=== PATIENT | female | born 1950 | race Caucasian/White ===

== ENCOUNTER → 2017-12-09 08:43 | Outpatient (CLI) | payer BC, SELFPAY ==
[2017-12-09 09:38] LABS: Basophils % 0.3 % (0.1-2.0); Eosinophils # 0.1 K/mm3 (0.0-0.4); Eosinophils % 2.5 % (0.1-12.0); Hematocrit 44.1 % (37.0-47.0); Lymphocytes # 1.5 K/mm3 (0.7-4.5); Mean Corpuscular Hemoglobin 30.8 pg (27.0-31.2); Mean Corpuscular Volume 90.5 fl (81-99); Mean Platelet Volume 8.1 fl (7.4-10.4); Monocytes # 0.3 K/mm3 (0.1-1.0); Monocytes % 6.2 % (1.7-9.3); Platelet Count 155 K/mm3 (142-424); Red Blood Count 4.87 M/mm3 (4.20-5.40); Red Cell Distribution Width 12.7 % (11.5-17.5); White Blood Count 4.9 K/mm3 (4.8-10.8)
[2017-12-09 10:23] LABS: Alanine Aminotransferase 66 U/L (12-78); Albumin Level 4.4 gm/dL (3.4-5.0); Albumin/Globulin Ratio 1.4 (1.1-1.8); Alkaline Phosphatase 70 U/L (46-116); Anion Gap 13.5 mEq/L (5-15); Aspartate Amino Transferase 43 U/L (15-37); Bilirubin,Total 0.5 mg/dL (0.2-1.0); Blood Urea Nitrogen 11 mg/dL (7-18); Calcium 10.1 mg/dL (8.5-10.1); Carbon Dioxide 30 mmol/L (21.0-32.0); Chloride 106 mmol/L (98-107); Chol/HDL Ratio 4.6 (1-3.5); Cholesterol 212 mg/dL (140-200); Creatinine,Serum 0.84 mg/dL (0.55-1.02); Estimated Glomerular Filt Rate 67 ml/min (>60); GFR (African American) 81 ML/MIN (>60); Globulin 3.2 gm/dl (1.3-3.2); Glucose 175 mg/dL (74-106); HDL Cholesterol 46 mg/dL (29-89); LDL Cholesterol 122 mg/dL (0-130); Potassium 4.5 mmoL/L (3.5-5.1); Sodium 145 mmol/L (136-145); Thyroid Stimulating Hormone 1.91 uIU/ml (0.358-3.740); Total Protein,Serum 7.6 gm/dL (6.4-8.2); Triglycerides 221 mg/dL (30-200); VLDL Cholesterol 44 mg/dL (0-40)
== END ==
PROVIDERS: Visit Provider Internal Medicine Adolescent Medicine
DX: E11.9 Type 2 diabetes mellitus without complications (principal); E78.5 Hyperlipidemia, unspecified; I10 Essential (primary) hypertension
CPT/HCPCS: 36415; 80053; 80061; 82652; 83036; 84443; 85025

== ENCOUNTER 2018-01-13 09:30 | Outpatient (RCR) | payer BC, SELFPAY ==
--- NOTE | 2018-01-05 11:40 | HMH.PTOPEV ---
PT Outpatient Evaluation Rehab OP Evaluation Start: 01/05/18 11:28 Freq: Status: Active Protocol: Document 01/05/18 11:28 JUNE (Rec: 01/05/18 11:40 JUNE [id number]) Electronically Signed By Tien Olmstead, PT 01/05/18 11:28 Outpatient Therapy Subjective History Subjective History Pt reports balance deficits with h/o falling over the last 6 months. Pt reports balance issue are especially problematic upon standing, on uneven terrain, and up/down stairs. Pt reports decreased sensation in B feet d/t neuropathy. Chief Complaint Paresthesia Weakness Other Decreased Coordination Symptom Type Numbness Tingling Symptoms Relieved By Nothing Symptoms Aggravated By Bending/Stooping Physical Activity Walking Prior Functional Limitations Housework Recreation Activity Walking Stairs Balance Current Functional Limitations Housework Recreation Activity Walking Stairs Balance Symptom Description Intermittent Level of pain today (0-10) 0 Pain scale - at its best (0-10) 0 Pain scale - at its worst (0-10) 0 Hip/Knee Eval MMT bilateral Hip Flexion Strength Grade 4- Good- Hip Abduction Strength Grade 4- Good- Hip Adduction Strength Grade 4- Good- Hip Extension Strength Grade 4- Good- Hip External Rotation Strength Grade 5 Normal Hip Internal Rotation Strength Grade 5 Normal Knee Extension Strength Grade 5 Normal Knee Flexion Strength Grade 5 Normal Ankle/Foot Eval MMT Ankle Dorsiflexion Strength Grade 5 Normal Ankle Plantarflexion Strength Grade 5 Normal Neuro tests decrease sensation to monofilament Yes: B LE Balance Eval Chief Complaint vertigo No Did you feel dizzy, unsteady or faint? No Hx of Falls Hx Falls Yes Number in last 6 months 2 Gait/Posture Asssessment General Gait Observation Narrow Based Gait Assistive Devices None / NA Level of Transfer Assist Independent Hip Observation in Gait Swing No Deviation Hip Observation in Gait Stance No Deviation
== END 2018-01-13 09:31 | disposition home or self-care (01) ==
LOC: PT 09:30
PROVIDERS: Family Provider Internal Medicine Adolescent Medicine; Visit Provider Internal Medicine Adolescent Medicine
DX: R26.89 Other abnormalities of gait and mobility (principal); M62.81 Muscle weakness (generalized)
CPT/HCPCS: 97110; 97112; 97163

== ENCOUNTER 2018-01-31 13:50 | Outpatient (RCR) | payer BC, SELFPAY | END 2018-01-31 13:51 | disposition home or self-care (01) | LOC: PT 13:50 | PROVIDERS: Family Provider Internal Medicine Adolescent Medicine; Visit Provider Psychiatry & Neurology Neurology | DX: S80.02XA Contusion of left knee, initial encounter (principal) ==

== ENCOUNTER → 2018-03-21 10:08 | Outpatient (CLI) | payer BC, SELFPAY ==
[2018-03-21 10:32] LABS: Basophils % 0.5 % (0.1-2.0); Eosinophils # 0.2 K/mm3 (0.0-0.4); Eosinophils % 3.9 % (0.1-12.0); Hematocrit 46.4 % (37.0-47.0); Hemoglobin 15.4 g/dL (12.2-16.2); Lymphocytes # 1.5 K/mm3 (0.7-4.5); Lymphocytes % 32.2 K/mm3 (10-50); Mean Corpuscular HGB Conc 33.2 g/dL (31.8-35.4); Mean Corpuscular Volume 90.4 fl (81-99); Mean Platelet Volume 7.3 fl (7.4-10.4); Monocytes # 0.3 K/mm3 (0.1-1.0); Neutrophils # 2.6 K/mm3 (1.8-7.8); Neutrophils % 57.5 % (37.0-80.0); Platelet Count 202 K/mm3 (142-424); Red Blood Count 5.13 M/mm3 (4.20-5.40); Red Cell Distribution Width 12.8 % (11.5-17.5); White Blood Count 4.6 K/mm3 (4.8-10.8)
[2018-03-21 11:23] LABS: Hemoglobin A1C 6.8 % (0.0-7.0)
[2018-03-21 11:37] LABS: Alanine Aminotransferase 49 U/L (12-78); Albumin Level 3.7 gm/dL (3.4-5.0); Albumin/Globulin Ratio 1.2 (1.1-1.8); Alkaline Phosphatase 65 U/L (46-116); Anion Gap 12.1 mEq/L (5-15); Aspartate Amino Transferase 24 U/L (15-37); Bilirubin,Total 0.3 mg/dL (0.2-1.0); Blood Urea Nitrogen 9 mg/dL (7-18); Calcium 9.3 mg/dL (8.5-10.1); Carbon Dioxide 29 mmol/L (21.0-32.0); Chloride 109 mmol/L (98-107); Chol/HDL Ratio 4.7 (1-3.5); Cholesterol 210 mg/dL (140-200); Creatinine,Serum 0.86 mg/dL (0.55-1.02); Estimated Glomerular Filt Rate 65 ml/min (>60); Free Thyroxine Index 2.7 ug/dL (5.93-13.13); GFR (African American) 79 ML/MIN (>60); Glucose 153 mg/dL (74-106); HDL Cholesterol 45 mg/dL (29-89); LDL Cholesterol 129 mg/dL (0-130); Potassium 5.1 mmoL/L (3.5-5.1); Sodium 145 mmol/L (136-145); T4 (Thyroxine) 8.4 ug/dl (4.7-13.3); Thyroid Stimulating Hormone 2.18 uIU/ml (0.358-3.740); Total Protein,Serum 6.7 gm/dL (6.4-8.2); Triglycerides 179 mg/dL (30-200); Triiodothryronine (T3) Uptake 32 % (31-39); VLDL Cholesterol 36 mg/dL (0-40)
== END ==
PROVIDERS: Visit Provider Internal Medicine Adolescent Medicine
DX: E78.5 Hyperlipidemia, unspecified (principal); E11.9 Type 2 diabetes mellitus without complications; E55.9 Vitamin D deficiency, unspecified; M81.0 Age-related osteoporosis without current pathological fracture
CPT/HCPCS: 36415; 80053; 80061; 82652; 83036; 84436; 84443; 84479; 85025

== ENCOUNTER → 2018-04-20 10:22 | Outpatient (CLI) | payer BC, SELFPAY ==
--- NOTE | 2018-04-20 10:25 | MR_ITS ---
MR lumbar spine wo con, MR 3-d myelogram/MRCP HISTORY: Low back pain with right-sided hip and leg pain Has fallen 3 times in 4 months and has had LBP since last fall in JANUARY. RT sided LBP with Rt hip pain. ITS.REASON: LUMBAR NEURALGIA ORDERING PHYSICIAN: Graham Jose MD PATIENT AGE: 67 years Comparison: 04/11/2017 TECHNIQUE: Standard multiplanar multiecho sequences are performed without contrast. 3-D MIP and myelographic images are also rendered and reviewed FINDINGS: There is normal alignment. There is degenerative disc disease at T11-T12 . Spinal cord ends at the L1-L2 level. T12-L1 and L1-L2 have an unremarkable appearance. L2-L3: There is minimal concentric bulging disc. L3-L4: Mild concentric bulging disc along with facet and ligamentum flavum hypertrophic change with mild bilateral lateral recess and foraminal narrowing. The disc does abut the anterior aspect of both L4 nerve roots in the lateral recess. L4-5: Mild concentric bulging disc, facet and ligamentum flavum hypertrophy with mild bilateral lateral recess and foraminal narrowing L5-S1: Type II endplate changes right with minimal bulging disc. Minimal facet hypertrophic change. Incidental note is made of right renal cyst as well as. Neural cyst on the right at S1 and Alycia cyst at the S2 level IMPRESSION: Mild multilevel lumbar spondylosis with mild bulging disc along facet ligamentum flavum hypertrophic change and mild lateral recess and foraminal narrowing similar to the previous exam. Please see above for detailed description at each level. No disc herniation or canal stenosis with overall no significant change
== END ==
PROVIDERS: Family Provider Internal Medicine Adolescent Medicine; PCP Internal Medicine Adolescent Medicine; Visit Provider Internal Medicine Adolescent Medicine
DX: M54.16 Radiculopathy, lumbar region (principal)
CPT/HCPCS: 72148; 76376

== ENCOUNTER 2018-05-09 10:30 | Outpatient (RCR) | payer BC, SELFPAY ==
--- NOTE | 2018-04-03 13:26 | HMH.PTOPEV ---
PT Outpatient Evaluation Rehab PT Outpatient Evaluation Start: 04/03/18 11:14 Freq: Status: Active Protocol: Document 04/03/18 11:14 JUNE (Rec: 04/03/18 13:26 JUNE [id number]) Electronically Signed By Tien Olmstead, PT 04/03/18 11:14 Outpatient Therapy Subjective History Subjective History Pt reports falling ~3-4 weeks ago, impact to L knee and R elbow, however reports 'feels like I nisha my whole spine'. Pt reports LBP R>L sided since the fall, as well as mid - and upper back stiffness/ pain. Chief Complaint Pain Spasms Stiff Symptom Type Ache Throb Sharp Dull Symptoms Relieved By Rest/Positioning Heat Symptoms Aggravated By Standing Bending/Stooping Physical Activity Twisting Walking Lifting Prior Functional Limitations None Current Functional Limitations Lifting Housework Sleeping Bending/Stooping Symptom Description Constant but Variable Level of pain today (0-10) 3 Pain scale - at its best (0-10) 2 Pain scale - at its worst (0-10) 9 Lumbopelvic Eval Posture Thoracic Spine Posture Standing Position Neutral Lumbar Spine Posture Standing Position Flattened Assistive device Assistive Devices None / NA Gait Observation General Gait Pattern Observation Antalgic Gait Palapation tenderness bilateral thoracic spinal tenderness Yes: 2/4 lumbar spinal tenderness Yes: 2/4 paraspinal tenderness Yes: 3/4 Lumbar/Sacral Palpation Findings Tenderness Trigger Point Muscle Guarding Lumbar/Sacral Palpation Overall Comment 3/4 Accessory Movement T-spine Vertebrae Accessory Movements Central P/A [place] that Elicit Symptoms T10 bilateral T11 bilateral T12 bilateral L-spine Vertebrae Accessory Movements Central P/A [place] that Elicit Symptoms L2 bilateral L3 bilateral L4 bilateral L5 bilateral S1
--- NOTE | 2018-05-04 11:26 | HMH.RHREAS ---
Rehab Reassessment Rehab OP Re-assessment Start: 05/04/18 09:55 Freq: Status: Active Protocol: Document 05/04/18 11:18 JUNE (Rec: 05/04/18 11:23 [email or web address] [id number]) Electronically Signed By Tien Olmstead, PT 05/04/18 11:18 Rehab Re-assessment Subjective Subjective Pt reports improved LBP since massage last week, and following an 'arching of the back' episode yesterday which improved s/s. Pt reports 4-5/ 10 LBP on vAS Objective Objective Notes AROM L-SPINE FLX 0-40, EXT 0- 20, R SB 0-15, L SB 0-15 MMT: B HIP FLX 4/5, B KNEE FLX AND EXT 4+/5, B DF 4+/5 TTP: R LUMBAR PARA. 2/4, R PIRI MM 1-2 Assessment Progress Assessment Slower Than Expected Assessment Notes PT W/IMPROVED STRENGTH, TTP, AND ROM Patient goals met STG'S 01/02 LTG'S 10/05 Goals Not Met STG'S 10/05, LTG'S 01/02 Plan Plan Pt ton cont. w/skilled PT to make further improvements w/ ROM, strength, and TTP to allow for optimal function Frequency of Therapy 1-2x/wk Duration of therapy 3-4 wks Time and Billing Re-Eval Time 15 Re-Eval Billing Units 1 PHYSICIAN CERTIFICATION: I certify the specified therapy services for Candace Bryant are required, authorized, and reviewed every 30 days.
== END 2018-05-09 10:31 | disposition home or self-care (01) ==
LOC: PT 10:30
PROVIDERS: Family Provider Internal Medicine Adolescent Medicine; Visit Provider Internal Medicine Adolescent Medicine
DX: M15.0 Primary generalized (osteo)arthritis (principal); R26.89 Other abnormalities of gait and mobility; M62.81 Muscle weakness (generalized); M54.12 Radiculopathy, cervical region; M54.16 Radiculopathy, lumbar region
CPT/HCPCS: 97010; 97014; 97035; 97110; 97140; 97163; 97164; G0283

== ENCOUNTER → 2018-11-16 09:14 | Outpatient (CLI) | payer BC, SELFPAY ==
[2018-11-16 10:25] LABS: Hemoglobin A1C 6.7 % (0.0-7.0)
[2018-11-16 10:42] LABS: Alanine Aminotransferase 43 U/L (12-78); Albumin Level 3.8 gm/dL (3.4-5.0); Albumin/Globulin Ratio 1.3 (1.1-1.8); Alkaline Phosphatase 57 U/L (46-116); Anion Gap 13.5 mEq/L (5-15); Aspartate Amino Transferase 27 U/L (15-37); Bilirubin,Total 0.3 mg/dL (0.2-1.0); Blood Urea Nitrogen 13 mg/dL (7-18); Calcium 9.9 mg/dL (8.5-10.1); Carbon Dioxide 30 mmol/L (21.0-32.0); Chloride 105 mmol/L (98-107); Chol/HDL Ratio 4.8 (1-3.5); Cholesterol 186 mg/dL (140-200); Creatinine,Serum 0.88 mg/dL (0.55-1.02); Estimated Glomerular Filt Rate 64 ml/min (>60); GFR (African American) 77 ML/MIN (>60); Glucose 134 mg/dL (74-106); HDL Cholesterol 39 mg/dL (29-89); LDL Cholesterol 93 mg/dL (0-130); Potassium 4.5 mmoL/L (3.5-5.1); Sodium 144 mmol/L (136-145); Total Protein,Serum 6.8 gm/dL (6.4-8.2); Triglycerides 272 mg/dL (30-200); VLDL Cholesterol 54 mg/dL (0-40)
== END ==
PROVIDERS: Visit Provider Internal Medicine Adolescent Medicine
DX: E78.5 Hyperlipidemia, unspecified (principal); I10 Essential (primary) hypertension; E11.9 Type 2 diabetes mellitus without complications; Z79.84 Long term (current) use of oral hypoglycemic drugs
CPT/HCPCS: 36415; 80053; 80061; 83036

== ENCOUNTER → 2018-12-01 13:02 | Outpatient (CLI) | payer BC, SELFPAY ==
--- NOTE | 2018-12-01 13:08 | US_ITS ---
US Arterial Ankle Brachial Ind HISTORY: Cold: Extremities. Skin color changes. Diabetes. Peripheral arterial vascular disease. No claudication reported. No rest pain TECHNIQUE: Segmental pressures obtained of both right and left leg. These are compared to brachial blood pressure to yield index at each level sampled including summary JESSICA. The data sheets from the procedure are available in PACS FINDINGS Rest study only performed today No prior studies available for comparison. Blood pressures reported are in millimeters mercury. RIGHT LEG JESSICA = Right JESSICA = 1.2. WNL: Right TBI = 0.6 slight diminished Brachial BP: Thigh BP: 160 with index 1.12 Calf BP: 210, with index 1.47 Ankle PT: BP 171 with index 1.2 Ankle DP : BP 176 with index 1.23 Digit =BP 92 with index 0.64 LEFT LEG JESSICA Left JESSICA equals 1.2. WNL ...Left TBI equal 0.6. Brachial BPD: 143 Thigh BP: BP 167 with index 1.17 Calf BP: BP 158 with index 1.1 Ankle PT:BP 168 with index 1.17 Ankle DP: BP 155 with index 1.08 Digit = BP 89 with index 0.62 Pulses and waveforms: Normal bilateral IMPRESSION:======== Normal pulses and waveforms bilaterally. Right JESSICA = 1.2 WNL Right TBI = 0.6 .... Left JESSICA equals 1.2. WNL Left TBI equal 0.6.
--- NOTE | 2018-12-01 14:08 | US_ITS ---
US soft tissue head and neck Ordering Physician: Graham Jose MD Patient Age: 68 years: Female HISTORY: ITS.REASON: TENDERNESS OF NECK Patient feels lump in neck towards right side TECHNIQUE: Ultrasound neck COMPARISON : CT cervical spine without contrast from 2016 FINDINGS Right submandibular gland: 3.6 cm x 2.2 cm x 2.45 cm. Homogeneous appearance. No focal mass. Left submandibular gland 2.65 cm x 1.6 cm x by 2.55 cm.. Heterogeneous gland. No mass evident Slightly more lobular left seventh of the gland. Left parotid of 4.5 cm length x 3.6 cm transverse x 2 cm AP. Heterogeneous gland. No mass nor lesion nor inflammation Right carotid 4.27 length 3.6 cm transverse 2 cm AP. Heterogeneous gland no mass lesion. Particular attention directed towards the area of pain and palpable region at the right neck. No abnormalities are seen in this region. If symptoms persist or progressSuggest CT neck with contrast to further evaluate. The Prior 2017 CT C-spine demonstrates moderate size lymph nodes nodes at the right neck which is slightly more on right than left. Most notable just Posterior to the angle of mandible. IMPRESSION: . Scanning in at the palpable area at the right neck reveals no abnormalities. The submandibular glands and parotid glands appear within normal limits. Slightly lobular contour left submandibular gland within normal limits
== END ==
PROVIDERS: PCP Internal Medicine Adolescent Medicine; Visit Provider Internal Medicine Adolescent Medicine
DX: I73.9 Peripheral vascular disease, unspecified (principal); M54.2 Cervicalgia
CPT/HCPCS: 76536; 93922

== ENCOUNTER → 2019-01-24 15:51 | Outpatient (CLI) | payer BC, SELFPAY ==
[2019-01-24 16:29] LABS: Basophils % 0.2 % (0.1-2.0); Eosinophils # 0.1 K/mm3 (0.0-0.4); Eosinophils % 0.5 % (0.1-12.0); Hematocrit 47.1 % (37.0-47.0); Hemoglobin 15.9 g/dL (12.2-16.2); Lymphocytes # 1.6 K/mm3 (0.7-4.5); Lymphocytes % 15.4 % (10-50); Mean Corpuscular HGB Conc 33.7 g/dL (31.8-35.4); Mean Corpuscular Hemoglobin 30.3 pg (27.0-31.2); Mean Corpuscular Volume 89.7 fl (81-99); Mean Platelet Volume 7.3 fl (7.4-10.4); Monocytes # 0.5 K/mm3 (0.1-1.0); Monocytes % 5.1 % (1.7-9.3); Neutrophils # 8.2 K/mm3 (1.8-7.8); Neutrophils % 78.7 % (37.0-80.0); Platelet Count 247 K/mm3 (142-424); Red Blood Count 5.25 M/mm3 (4.20-5.40); Red Cell Distribution Width 12.7 % (11.5-17.5); White Blood Count 10.4 K/mm3 (4.8-10.8)
[2019-01-24 16:48] LABS: Uric Acid 7.3 mg/dL (2.6-7.2)
[2019-01-24 16:51] LABS: C-Reactive Protein < 0.2 mg/L (0.0-0.9)
[2019-01-24 17:36] LABS: Erythrocyte Sedimentation Rate 7 mm/hr (0-30)
[2019-01-26 07:34] LABS: RA Latex Turbid. <10.0 IU/mL (0.0-13.9)
[2019-01-26 18:43] LABS: Antinuclear Antibodies, IFA Negative (.)
== END ==
PROVIDERS: Visit Provider Orthopaedic Surgery
DX: M65.849 Other synovitis and tenosynovitis, unspecified hand (principal)
CPT/HCPCS: 36415; 84550; 85025; 85651; 86038; 86140; 86431

== ENCOUNTER → 2019-03-02 10:25 | Outpatient (CLI) | payer BC, SELFPAY | PROVIDERS: Visit Provider Surgery | DX: R53.83 Other fatigue (principal); R19.7 Diarrhea, unspecified | CPT/HCPCS: 87493 ==

== ENCOUNTER → 2019-04-27 11:59 | Outpatient (CLI) | payer BC, SELFPAY ==
[2019-04-27 12:23] LABS: Basophils % 0.2 % (0.1-2.0); Eosinophils # 0.4 K/mm3 (0.0-0.4); Eosinophils % 6.4 % (0.1-12.0); Hematocrit 43.3 % (37.0-47.0); Lymphocytes # 1.7 K/mm3 (0.7-4.5); Lymphocytes % 28.5 % (10-50); Mean Corpuscular HGB Conc 32.4 g/dL (31.8-35.4); Mean Corpuscular Hemoglobin 30.4 pg (27.0-31.2); Mean Corpuscular Volume 93.7 fl (81-99); Mean Platelet Volume 8.9 fl (7.4-10.4); Monocytes # 0.4 K/mm3 (0.1-1.0); Monocytes % 6.1 % (1.7-9.3); Neutrophils # 3.5 K/mm3 (1.8-7.8); Neutrophils % 58.9 % (37.0-80.0); Platelet Count 224 K/mm3 (142-424); Red Blood Count 4.62 M/mm3 (4.20-5.40); Red Cell Distribution Width 12.8 % (11.5-17.5); White Blood Count 5.9 K/mm3 (4.8-10.8)
[2019-04-27 14:04] LABS: Alanine Aminotransferase 33 U/L (12-78); Albumin Level 3.6 gm/dL (3.4-5.0); Albumin/Globulin Ratio 1.3 (1.1-1.8); Alkaline Phosphatase 57 U/L (46-116); Anion Gap 15.2 mEq/L (5-15); Aspartate Amino Transferase 24 U/L (15-37); Bilirubin,Total 0.4 mg/dL (0.2-1.0); Blood Urea Nitrogen 9 mg/dL (7-18); Calcium 9.6 mg/dL (8.5-10.1); Carbon Dioxide 28 mmol/L (21.0-32.0); Chloride 104 mmol/L (98-107); Estimated Glomerular Filt Rate 55 ml/min (>60); GFR (African American) 66 ML/MIN (>60); Globulin 2.8 gm/dl (1.3-3.2); Glucose 163 mg/dL (74-106); Potassium 4.2 mmoL/L (3.5-5.1); Sodium 143 mmol/L (136-145); Total Protein,Serum 6.4 gm/dL (6.4-8.2)
[2019-04-27 14:09] LABS: C-Reactive Protein < 0.2 mg/dL (0.0-0.9)
[2019-04-27 15:12] LABS: Erythrocyte Sedimentation Rate 17 mm/hr (0-30)
== END ==
PROVIDERS: Visit Provider Nurse Practitioner Family
DX: R14.0 Abdominal distension (gaseous) (principal)
CPT/HCPCS: 36415; 80053; 85025; 85651; 86140

== ENCOUNTER → 2019-05-03 09:16 | Outpatient (CLI) | payer BC, SELFPAY ==
--- NOTE | 2019-05-03 09:31 | CT_ITS ---
PROCEDURE: CT ABDOMEN PELVIS W CON CLINICAL HISTORY: ABD DISTENTION,DIARRHEA COMPARISON: ABDPELW CT ABD PELVIS W/ CONTRAST from 10/15/[address] abdomen pelvis w con from 03/04/2019 TECHNIQUE: 75 mL Optiray 350 IV with oral Readi-Cat Axial images obtained with sagittal and coronal reformats. All CT scans at the facility use one or more dose reduction, viz: automated exposure control, ma/kV adjustment per patient size (including targeted exams where dose is matched to indication, i.e. head), or iterative reconstruction technique. FINDINGS: There some scarring in the left lung base. Postsurgical changes at the GE junction with surgical clips. Mild thickening of the distal esophagus is noted. Previously noted fluid collection at the GE junction is no longer apparent. There is increased soft tissue density at the GE junction and may be related to the prior surgery. There is mild fatty liver infiltration. The there are post cholecystectomy changes. There is a rounded area of hypoattenuation in the left hepatic lobe measuring 17 mm not significantly changed. An additional area of hypoattenuation is present in the gallbladder fossa at 9 mm. These areas are unchanged. Percutaneous gastrostomy tube has been removed. The spleen, pancreas, and adrenal glands are unremarkable. No renal or ureteral calculi. No hydronephrosis. 2.3 cm right renal cyst is present. No evidence of appendicitis. No intestinal obstruction or free air. There is a mild amount of retained colonic feces. Fluid-filled small bowel loops are present in the pelvis with some mild submucosal enhancement. Possibly related to enteritis. The terminal ileum has an unremarkable appearance. The uterus is slightly canted toward the left. No acute bony anomalies. IMPRESSION: 1. No acute abdominal or pelvic findings 2. Postsurgical changes at the GE junction. Prior cholecystectomy. Resolved perigastric fluid collection 3. Stable hypodense liver lesions. 4. Constipation with possible enteritis Dictated by: Jad Uriostegui MD 05/04/2019 06:00 Electronically signed by Jad Uriostegui MD in [place] 05/04/2019 06:00
== END ==
PROVIDERS: PCP Internal Medicine Adolescent Medicine; Visit Provider Nurse Practitioner Family
DX: R14.0 Abdominal distension (gaseous) (principal)
CPT/HCPCS: 74177; Q9967

== ENCOUNTER → 2019-05-04 11:18 | Outpatient (CLI) | payer BC, SELFPAY ==
[2019-05-05 17:16] LABS: C difficile Toxins AB, EIA Negative (Negative)
[2019-05-05 18:07] LABS: Giardia lamblia Ag, EIA Negative (Negative)
[2019-05-08 10:31] LABS: Fats, Neutral Normal (.); Fats, Total Normal (.)
[2019-05-09 06:08] LABS: Calprotectin, Fecal <16 ug/g (0-120)
== END ==
PROVIDERS: Visit Provider Nurse Practitioner Family
DX: R14.0 Abdominal distension (gaseous) (principal)
CPT/HCPCS: 82705; 83993; 87045; 87177; 87205; 87324

== ENCOUNTER → 2019-05-10 09:21 | Outpatient (CLI) | payer BC, SELFPAY ==
[2019-05-10 09:37] LABS: Basophils % 0.4 % (0.1-2.0); Eosinophils # 0.3 K/mm3 (0.0-0.4); Eosinophils % 6.1 % (0.1-12.0); Hematocrit 45.4 % (37.0-47.0); Hemoglobin 15.1 g/dL (12.2-16.2); Lymphocytes # 1.6 K/mm3 (0.7-4.5); Lymphocytes % 27.3 % (10-50); Mean Corpuscular HGB Conc 33.2 g/dL (31.8-35.4); Mean Corpuscular Hemoglobin 30.4 pg (27.0-31.2); Mean Corpuscular Volume 91.5 fl (81-99); Mean Platelet Volume 7.1 fl (7.4-10.4); Monocytes # 0.4 K/mm3 (0.1-1.0); Monocytes % 6.3 % (1.7-9.3); Neutrophils # 3.4 K/mm3 (1.8-7.8); Neutrophils % 59.9 % (37.0-80.0); Platelet Count 212 K/mm3 (142-424); Red Blood Count 4.96 M/mm3 (4.20-5.40); Red Cell Distribution Width 12.8 % (11.5-17.5); White Blood Count 5.7 K/mm3 (4.8-10.8)
[2019-05-10 10:30] LABS: Hemoglobin A1C 5.9 % (0.0-7.0)
[2019-05-10 11:28] LABS: Chol/HDL Ratio 2.8 (1-3.5); Cholesterol 137 mg/dL (140-200); Free Thyroxine Index 3.1 ug/dL (5.93-13.13); HDL Cholesterol 49 mg/dL (29-89); LDL Cholesterol 64 mg/dL (0-130); T4 (Thyroxine) 9.8 ug/dl (4.7-13.3); Thyroid Stimulating Hormone 4.23 uIU/ml (0.358-3.740); Triglycerides 122 mg/dL (30-200); Triiodothryronine (T3) Uptake 32 % (31-39); VLDL Cholesterol 24 mg/dL (0-40)
[2019-05-11 10:11] LABS: Vitamin D 25 Hydroxy 52.8 ng/mL (30.0-100.0)
[2019-05-11 17:11] LABS: Vitamin B12 690 pg/mL (232-1245)
== END ==
PROVIDERS: Visit Provider Internal Medicine Adolescent Medicine
DX: E78.5 Hyperlipidemia, unspecified (principal); E11.9 Type 2 diabetes mellitus without complications; E06.9 Thyroiditis, unspecified; E55.9 Vitamin D deficiency, unspecified; Z79.84 Long term (current) use of oral hypoglycemic drugs
CPT/HCPCS: 36415; 80061; 82607; 82652; 83036; 84436; 84443; 84479; 85025

== ENCOUNTER → 2019-08-02 09:15 | Outpatient (CLI) | payer BC, SELFPAY ==
[2019-08-02 10:16] LABS: Basophils % 0.4 % (0.1-2.0); Eosinophils # 0.2 K/mm3 (0.0-0.4); Eosinophils % 4.2 % (0.1-12.0); Hematocrit 45.1 % (37.0-47.0); Hemoglobin 14.3 g/dL (12.2-16.2); Lymphocytes # 1.6 K/mm3 (0.7-4.5); Lymphocytes % 32.9 % (10-50); Mean Corpuscular HGB Conc 31.8 g/dL (31.8-35.4); Mean Corpuscular Hemoglobin 29.6 pg (27.0-31.2); Mean Corpuscular Volume 93.1 fl (81-99); Mean Platelet Volume 8.5 fl (7.4-10.4); Monocytes # 0.3 K/mm3 (0.1-1.0); Monocytes % 5.9 % (1.7-9.3); Neutrophils # 2.7 K/mm3 (1.8-7.8); Neutrophils % 56.5 % (37.0-80.0); Platelet Count 168 K/mm3 (142-424); Red Blood Count 4.84 M/mm3 (4.20-5.40); Red Cell Distribution Width 12.9 % (11.5-17.5); White Blood Count 4.8 K/mm3 (4.8-10.8)
[2019-08-02 11:20] LABS: Alanine Aminotransferase 28 U/L (12-78); Albumin Level 3.6 gm/dL (3.4-5.0); Albumin/Globulin Ratio 1.2 (1.1-1.8); Alkaline Phosphatase 55 U/L (46-116); Anion Gap 11.6 mEq/L (5-15); Aspartate Amino Transferase 22 U/L (15-37); Bilirubin,Total 0.4 mg/dL (0.2-1.0); Blood Urea Nitrogen 15 mg/dL (7-18); Calcium 8.9 mg/dL (8.5-10.1); Carbon Dioxide 29 mmol/L (21.0-32.0); Chloride 108 mmol/L (98-107); Chol/HDL Ratio 3.4 (1-3.5); Cholesterol 166 mg/dL (140-200); Creatinine,Serum 0.92 mg/dL (0.55-1.02); Estimated Glomerular Filt Rate 60 ml/min (>60); GFR (African American) 73 ML/MIN (>60); Glucose 184 mg/dL (74-106); HDL Cholesterol 49 mg/dL (29-89); LDL Cholesterol 88 mg/dL (0-130); Potassium 4.6 mmoL/L (3.5-5.1); Sodium 144 mmol/L (136-145); Thyroid Stimulating Hormone 2.05 uIU/ml (0.358-3.740); Total Protein,Serum 6.6 gm/dL (6.4-8.2); Triglycerides 146 mg/dL (30-200); VLDL Cholesterol 29 mg/dL (0-40)
[2019-08-02 13:56] LABS: Hemoglobin A1C 7.4 % (0.0-7.0)
[2019-08-03 10:48] LABS: Vitamin B12 1938 pg/mL (232-1245); Vitamin D 25 Hydroxy 48.9 ng/mL (30.0-100.0)
== END ==
PROVIDERS: Visit Provider Nurse Practitioner Family
DX: E11.9 Type 2 diabetes mellitus without complications (principal); E78.5 Hyperlipidemia, unspecified; E06.9 Thyroiditis, unspecified; E53.8 Deficiency of other specified B group vitamins; E55.9 Vitamin D deficiency, unspecified; I10 Essential (primary) hypertension; Z79.84 Long term (current) use of oral hypoglycemic drugs
CPT/HCPCS: 36415; 80053; 80061; 82607; 82652; 83036; 84443; 85025

== ENCOUNTER → 2019-09-03 12:45 | Outpatient (CLI) | payer BC, SELFPAY ==
[2019-09-03 15:10] LABS: Anion Gap 15.5 mEq/L (5-15); Blood Urea Nitrogen 19 mg/dL (7-18); Calcium 9.4 mg/dL (8.5-10.1); Carbon Dioxide 26 mmol/L (21.0-32.0); Chloride 103 mmol/L (98-107); Creatinine,Serum 0.96 mg/dL (0.55-1.02); Estimated Glomerular Filt Rate 57 ml/min (>60); GFR (African American) 69 ML/MIN (>60); Glucose 191 mg/dL (74-106); Potassium 4.5 mmoL/L (3.5-5.1); Sodium 140 mmol/L (136-145)
== END ==
PROVIDERS: Visit Provider Internal Medicine Adolescent Medicine
DX: E11.9 Type 2 diabetes mellitus without complications (principal); Z79.84 Long term (current) use of oral hypoglycemic drugs
CPT/HCPCS: 36415; 80048

== ENCOUNTER → 2019-10-24 09:25 | Outpatient (CLI) | payer BC, SELFPAY ==
[2019-10-24 11:26] LABS: Chloride 99 mmol/L (98-107)
[2019-10-24 11:27] LABS: Potassium 4.2 mmoL/L (3.5-5.1); Sodium 139 mmol/L (136-145)
[2019-10-24 11:29] LABS: Alanine Aminotransferase 42 U/L (12-78); Aspartate Amino Transferase 43 U/L (14-36); Blood Urea Nitrogen 12 mg/dl (7-17); Estimated Glomerular Filt Rate 62 ml/min (>60); GFR (African American) 75 ML/MIN (>60)
[2019-10-24 11:30] LABS: Albumin Level 4.1 g/dl (3.5-5.0); Albumin/Globulin Ratio 1.6 (1.1-1.8); Alkaline Phosphatase 54 U/L (38-126); Anion Gap 13.2 mEq/L (5-15); Bilirubin,Total 0.6 mg/dl (0.2-1.3); Calcium 9.7 mg/dl (8.4-10.2); Carbon Dioxide 31 mmol/L (22.0-30.0); Globulin 2.5 g/dL (1.3-3.2); Glucose 156 mg/dl (74-100); Total Protein,Serum 6.6 g/dl (6.3-8.2)
[2019-10-24 11:33] LABS: Hemoglobin A1C 8.3 % (4.0-6.0)
== END ==
PROVIDERS: Visit Provider Internal Medicine Adolescent Medicine
DX: E11.9 Type 2 diabetes mellitus without complications (principal); Z79.84 Long term (current) use of oral hypoglycemic drugs
CPT/HCPCS: 36415; 80053; 83036

== ENCOUNTER → 2020-02-25 12:52 | Outpatient (CLI) | payer MEDICARE, SELFPAY ==
[2020-02-25 13:35] LABS: Basophils % 0.3 % (0.1-2.0); Eosinophils # 0.2 K/mm3 (0.0-0.4); Eosinophils % 2.8 % (0.1-12.0); Hematocrit 47.4 % (37.0-47.0); Hemoglobin 16.5 g/dL (12.2-16.2); Lymphocytes # 1.7 K/mm3 (0.7-4.5); Lymphocytes % 30.6 % (10-50); Mean Corpuscular HGB Conc 34.8 g/dL (31.8-35.4); Mean Corpuscular Volume 92.2 fl (81-99); Mean Platelet Volume 7.4 fl (7.4-10.4); Monocytes # 0.3 K/mm3 (0.1-1.0); Monocytes % 5.4 % (1.7-9.3); Neutrophils # 3.5 K/mm3 (1.8-7.8); Neutrophils % 60.9 % (37.0-80.0); Platelet Count 222 K/mm3 (142-424); Red Blood Count 5.14 M/mm3 (4.20-5.40); Red Cell Distribution Width 12.9 % (11.5-17.5); White Blood Count 5.7 K/mm3 (4.8-10.8)
[2020-02-25 13:55] LABS: Hemoglobin A1C 7.1 % (4.0-6.0)
[2020-02-25 14:16] LABS: Chloride 103 mmol/L (98-107); Potassium 4.8 mmoL/L (3.5-5.1); Sodium 136 mmol/L (136-145)
[2020-02-25 14:19] LABS: Alanine Aminotransferase 36 U/L (12-78); Albumin Level 4.3 g/dl (3.5-5.0); Albumin/Globulin Ratio 1.7 (1.1-1.8); Alkaline Phosphatase 59 U/L (38-126); Anion Gap 13.8 mEq/L (5-15); Aspartate Amino Transferase 39 U/L (14-36); Bilirubin,Total 0.7 mg/dl (0.2-1.3); Blood Urea Nitrogen 20 mg/dl (7-17); Carbon Dioxide 24 mmol/L (22.0-30.0); Cholesterol 168 mg/dl (140-200); Estimated Glomerular Filt Rate 71 ml/min (>60); GFR (African American) 86 ML/MIN (>60); Globulin 2.5 g/dL (1.3-3.2); Total Protein,Serum 6.8 g/dl (6.3-8.2); Triglycerides 344 mg/dl (30-150); VLDL Cholesterol 69 mg/dL (0-40)
[2020-02-25 14:20] LABS: Calcium 9.4 mg/dl (8.4-10.2); Chol/HDL Ratio 3.5 (1-3.5); Glucose 232 mg/dl (74-100); HDL Cholesterol 48 mg/dl (40-60)
[2020-02-25 14:31] LABS: Direct LDL Cholesterol 90.14 mg/dL (100-129)
[2020-02-25 14:35] LABS: Triiodothryronine (T3) Uptake 30 % (23.5-40.5)
[2020-02-25 14:36] LABS: Free Thyroxine Index 2.7 ug/dL (5.93-13.13)
[2020-02-25 14:49] LABS: Thyroid Stimulating Hormone 1.31 uIU/mL (0.465-4.68)
[2020-02-25 15:25] LABS: 25-OH Vitamin D, Total 47.1 ng/mL (30-100)
[2020-02-27 04:47] LABS: Vitamin B12 1091 pg/mL (232-1245)
== END ==
PROVIDERS: Visit Provider Internal Medicine Adolescent Medicine
DX: E78.5 Hyperlipidemia, unspecified (principal); E55.9 Vitamin D deficiency, unspecified; E53.8 Deficiency of other specified B group vitamins; E06.9 Thyroiditis, unspecified; E11.9 Type 2 diabetes mellitus without complications; Z79.84 Long term (current) use of oral hypoglycemic drugs
CPT/HCPCS: 36415; 80053; 80061; 82306; 82607; 83036; 84436; 84443; 84479; 85025

== ENCOUNTER → 2020-05-13 13:03 | Outpatient (CLI) | payer MEDICARE, SELFPAY ==
[2020-05-13 16:49] LABS: Coronavirus 19 IgG Antibody Negative (Negative); Coronavirus 19 IgM Antibody Negative (Negative)
[2020-05-14 15:35] LABS: Covid-19 Nasal PCR Sendout Lex Not Detected
== END ==
PROVIDERS: PCP Internal Medicine Adolescent Medicine; Visit Provider Internal Medicine Adolescent Medicine
DX: Z20.828 Contact with and (suspected) exposure to other viral communicable diseases (principal); M79.10 Myalgia, unspecified site
CPT/HCPCS: 36415; 86328; U0004

== ENCOUNTER → 2020-06-07 09:05 | Outpatient (CLI) | payer MEDICARE, SELFPAY ==
[2020-06-07 10:11] LABS: Hemoglobin A1C 8.3 % (4.0-6.0)
[2020-06-07 10:46] LABS: Chloride 103 mmol/L (98-107); Potassium 4.5 mmoL/L (3.5-5.1); Sodium 140 mmol/L (136-145)
[2020-06-07 10:49] LABS: Alanine Aminotransferase 38 U/L (12-78); Albumin Level 4.3 g/dl (3.5-5.0); Albumin/Globulin Ratio 1.7 (1.1-1.8); Alkaline Phosphatase 65 U/L (38-126); Anion Gap 11.5 mEq/L (5-15); Aspartate Amino Transferase 40 U/L (14-36); Bilirubin,Total 0.6 mg/dl (0.2-1.3); Blood Urea Nitrogen 15 mg/dl (7-17); Calcium 9.6 mg/dl (8.4-10.2); Carbon Dioxide 30 mmol/L (22.0-30.0); Estimated Glomerular Filt Rate 62 ml/min (>60); GFR (African American) 74 ML/MIN (>60); Globulin 2.5 g/dL (1.3-3.2); Glucose 192 mg/dl (74-100); Total Protein,Serum 6.8 g/dl (6.3-8.2)
== END ==
PROVIDERS: Visit Provider Internal Medicine Adolescent Medicine
DX: E11.9 Type 2 diabetes mellitus without complications (principal); Z79.84 Long term (current) use of oral hypoglycemic drugs
CPT/HCPCS: 36415; 80053; 83036

== ENCOUNTER → 2020-08-29 10:34 | Outpatient (CLI) | payer MEDICARE, SELFPAY | PROVIDERS: PCP Internal Medicine Adolescent Medicine; Visit Provider Orthopaedic Surgery | DX: Z11.52 Encounter for screening for COVID-19 (principal) | CPT/HCPCS: U0003 ==

== ENCOUNTER → 2020-10-27 08:39 | Outpatient (CLI) | payer MEDICARE, SELFPAY ==
[2020-10-27 09:37] LABS: Hemoglobin A1C 7.3 % (4.0-6.0)
[2020-10-27 10:20] LABS: Chloride 105 mmol/L (98-107); Potassium 4.5 mmoL/L (3.5-5.1); Sodium 143 mmol/L (136-145)
[2020-10-27 10:23] LABS: Alanine Aminotransferase 56 U/L (12-78); Albumin Level 4.2 g/dl (3.5-5.0); Albumin/Globulin Ratio 1.5 (1.1-1.8); Alkaline Phosphatase 66 U/L (38-126); Anion Gap 12.5 mEq/L (5-15); Aspartate Amino Transferase 54 U/L (14-36); Bilirubin,Total 0.6 mg/dl (0.2-1.3); Blood Urea Nitrogen 14 mg/dl (7-17); Carbon Dioxide 30 mmol/L (22.0-30.0); Estimated Glomerular Filt Rate 62 ml/min (>60); GFR (African American) 74 ML/MIN (>60); Globulin 2.8 g/dL (1.3-3.2)
[2020-10-27 10:24] LABS: Calcium 10.1 mg/dl (8.4-10.2); Glucose 144 mg/dl (74-100)
[2020-10-27 10:39] LABS: Triiodothryronine (T3) Uptake 30 % (23.5-40.5)
[2020-10-27 10:41] LABS: Free Thyroxine Index 2.6 ug/dL (5.93-13.13); T4 (Thyroxine) 8.8 ug/dl (5.53-11.0)
[2020-10-27 11:46] LABS: Thyroid Stimulating Hormone 3.23 uIU/mL (0.465-4.68)
[2020-10-27 12:26] LABS: Vitamin B12 > 1000 pg/mL (239-931)
== END ==
PROVIDERS: Visit Provider Internal Medicine Adolescent Medicine
DX: E11.9 Type 2 diabetes mellitus without complications (principal); E06.9 Thyroiditis, unspecified; E55.9 Vitamin D deficiency, unspecified; E53.8 Deficiency of other specified B group vitamins; Z79.84 Long term (current) use of oral hypoglycemic drugs
CPT/HCPCS: 36415; 80053; 82306; 82607; 83036; 84436; 84443; 84479

== ENCOUNTER → 2021-01-29 10:59 | Outpatient (CLI) | payer MEDICARE, SELFPAY ==
--- NOTE | 2021-01-29 11:10 | XR_ITS ---
PROCEDURE: XR KNEE RT 4V CLINICAL INDICATION: RT ANTERIOR KNEE PAIN COMPARISON: No exams were available for comparison FINDINGS: No fracture or dislocation. No lytic or blastic change. There is normal mineralization. There are mild tricompartmental osteoarthritic changes along with chondrocalcinosis of the medial lateral meniscus. Small linear calcification is present adjacent to the medial aspect of the medial femoral condyle and could represent sequela from an old avulsion fracture/MCL injury. Other findings:None. IMPRESSION: Osteoarthritic change with chondrocalcinosis. Old avulsion fracture or ligamentous injury at the medial femoral condyle region Dictated by: Jad Uriostegui MD 01/29/2021 12:30 Jad Uriostegui MD in [facility] 01/29/2021 12:30
== END ==
PROVIDERS: PCP Internal Medicine Adolescent Medicine; Visit Provider Internal Medicine Adolescent Medicine
DX: M25.561 Pain in right knee (principal)
CPT/HCPCS: 73564

== ENCOUNTER → 2021-06-10 09:52 | Outpatient (CLI) | payer MEDICARE, SELFPAY ==
[2021-06-10 10:20] LABS: Basophils % 0.8 % (0.1-2.0); Eosinophils # 0.2 K/mm3 (0.0-0.4); Eosinophils % 3.9 % (0.1-12.0); Hematocrit 44.9 % (37.0-47.0); Hemoglobin 15.1 g/dL (12.2-16.2); Lymphocytes # 1.6 K/mm3 (0.7-4.5); Lymphocytes % 34.1 % (10-50); Mean Corpuscular HGB Conc 33.6 g/dL (31.8-35.4); Mean Corpuscular Hemoglobin 31.6 pg (27.0-31.2); Mean Corpuscular Volume 94.1 fl (81-99); Mean Platelet Volume 8.4 fl (7.4-10.4); Monocytes # 0.3 K/mm3 (0.1-1.0); Monocytes % 5.7 % (1.7-9.3); Neutrophils # 2.7 K/mm3 (1.8-7.8); Neutrophils % 55.5 % (37.0-80.0); Platelet Count 170 K/mm3 (142-424); Red Blood Count 4.77 M/mm3 (4.20-5.40); White Blood Count 4.8 K/mm3 (4.8-10.8)
[2021-06-10 11:18] LABS: Hemoglobin A1C 7.2 % (4.0-6.0)
[2021-06-10 11:20] LABS: Alanine Aminotransferase 42 U/L (12-78); Albumin/Globulin Ratio 1.7 (1.1-1.8); Alkaline Phosphatase 55 U/L (38-126); Anion Gap 10.8 mEq/L (5-15); Aspartate Amino Transferase 52 U/L (14-36); Bilirubin,Total 0.5 mg/dl (0.2-1.3); Blood Urea Nitrogen 11 mg/dl (7-17); Calcium 9.2 mg/dl (8.4-10.2); Carbon Dioxide 29 mmol/L (22.0-30.0); Chloride 108 mmol/L (98-107); Chol/HDL Ratio 3.6 (1-3.5); Cholesterol 175 mg/dl (140-200); Estimated Glomerular Filt Rate 70 ml/min (>60); GFR (African American) 85 ML/MIN (>60); Globulin 2.4 g/dL (1.3-3.2); Glucose 139 mg/dl (74-100); HDL Cholesterol 49 mg/dl (40-60); Potassium 4.8 mmoL/L (3.5-5.1); Sodium 143 mmol/L (136-145); Total Protein,Serum 6.4 g/dl (6.3-8.2); Triglycerides 136 mg/dl (30-150); VLDL Cholesterol 27 mg/dL (0-40)
[2021-06-10 11:30] LABS: Direct LDL Cholesterol 105.06 mg/dL (100-129)
[2021-06-10 11:36] LABS: 25-OH Vitamin D, Total 44.9 ng/mL (30-100)
== END ==
PROVIDERS: Visit Provider Internal Medicine Adolescent Medicine
DX: E11.9 Type 2 diabetes mellitus without complications (principal); E78.5 Hyperlipidemia, unspecified; E55.9 Vitamin D deficiency, unspecified; Z79.84 Long term (current) use of oral hypoglycemic drugs
CPT/HCPCS: 36415; 80053; 80061; 82306; 83036; 85025

== ENCOUNTER → 2021-07-30 12:40 | Outpatient (CLI) | payer MEDICARE, SELFPAY ==
--- NOTE | 2021-07-30 12:45 | MM_ITS ---
PROCEDURE INFORMATION: Exam: US Right Breast, Complete MG Right Diagnostic Breast Tomosynthesis Exam date and time: 07/30/2021 12:45 PM Age: 71 years old Clinical indication: Right breast pain; Right; history of right lumpectomy. TECHNIQUE: Imaging protocol: Complete ultrasound of all four quadrants of the Right breast and the retroareolar regions, including ultrasound of the axilla when performed. Right Diagnostic tomosynthesis and 2D mammography including computer-aided detection (CAD) when performed. Unilateral or bilateral exam. COMPARISON: No relevant prior studies available. FINDINGS: MAMMOGRAPHY: The breast tissue is composed of scattered areas of fibroglandular density. There is no stellate mass, suspicious architectural distortion or suspicious microcalcifications to suggest malignancy. No skin thickening or axillary adenopathy. ULTRASOUND: Sonographic images of the right breast including the retroareolar region, all 4 quadrants and the axilla do not demonstrate any solid or cystic masses. No architectural distortion or acoustical shadowing. Cursors were placed over normal fibroglandular structures in the 6-8 o'clock periareolar region. No skin thickening or axillary adenopathy. IMPRESSION: No mammographic or sonographic evidence of malignancy. Annual bilateral mammographic screening is recommended unless otherwise clinically indicated. ASSESSMENT: BI-RADS Category 1: Negative
== END ==
PROVIDERS: PCP Internal Medicine Adolescent Medicine; Visit Provider Internal Medicine Hematology & Oncology
DX: C50.911 Malignant neoplasm of unspecified site of right female breast (principal); Z17.0 Estrogen receptor positive status [ER+]; R92.8 Other abnormal and inconclusive findings on diagnostic imaging of breast
CPT/HCPCS: 76641; 77061; 77065; G0279

== ENCOUNTER → 2021-10-06 08:42 | Outpatient (CLI) | payer MEDICARE, SELFPAY ==
--- NOTE | 2021-10-06 08:47 | CT_ITS ---
FINAL REPORT CLINICAL HISTORY: ABD PAIN,CHEST WALL PAIN RIGHT SIDE,MALIGNANT NEOPLASM OF BREAST FINDINGS: Axial CT images of the chest were obtained with contrast. Coronal reformatted images were also obtained. This study was performed with techniques to keep radiation doses as low as reasonably achievable, (ALARA). Individualized dose reduction techniques using automated exposure control or adjustment of mA and/or KV according to the patient's size were employed. There is no evidence of mediastinal or hilar mass or adenopathy.No axillary mass or adenopathy is identified. On lung window images, there is mild scarring. There is mild bibasilar atelectasis. There is no pulmonary mass or dominant pulmonary nodule is identified. No localized pulmonary inflammatory process is identified. Limited images of the upper abdomen reveal no mass or localized inflammatory process. There is no chest wall abnormality. There are presumed postoperative changes of the right breast. IMPRESSION: Mild bibasilar atelectasis. No mass or localized inflammatory process. Reviewed, Interpreted and Dictated by Raj Epstein III, MD Transcribed by Michelle Richard Authenticated by Raj Epstein III, MD on 10/06/2021 12:49:26 PM [facility]
--- NOTE | 2021-10-06 08:47 | CT_ITS ---
FINAL REPORT CLINICAL HISTORY: RIGHT SIDE ABD PAIN AND CHEST WALL PAIN,MALIGNANT NEOPLASM OF BREAST FINDINGS: CT OF THE ABDOMEN AND PELVIS WITH CONTRAST Axial CT images of the abdomen and pelvis were obtained after the administration of oral and iv contrast. Coronal reformatted images were also obtained and reviewed.This study was performed with techniques to keep radiation doses as low as reasonably achievable (ALARA). Individualized dose reduction techniques using automated exposure control or adjustment of mA and/or kV according to the patient's size were employed. Abdomen: The heart is normal in size. The liver has increased echogenicity consistent with fatty infiltration. There is a 19 mm low-attenuation mass in the left hepatic lobe the previously measured 17 mm. This is not significantly changed and favoring benign. The gallbladder surgically absent. The low-attenuation focus adjacent to the gallbladder fossa on the prior study is not definitely seen. There is no biliary ductal dilatation. There are postoperative changes at the GE junction. The spleen is unremarkable. No adrenal mass is present. The pancreas has an unremarkable appearance. The left kidney is normal, without evidence of mass or hydronephrosis. There is an anterior right renal mass measuring 31 mm and was 24 mm, favoring a cyst. The aorta is normal in caliber. There is no free fluid. No new mass or adenopathy is identified. Pelvis: The appendix is normal. The urinary bladder is unremarkable. No inflammatory process is seen. There is no evidence of mass or adenopathy. There is no evidence of bowel obstruction. IMPRESSION: Low attenuation mass in the left hepatic lobe, not significantly changed and favored benign. Anterior right renal mass as described, favoring a cyst. Post cholecystectomy. Postoperative changes at the GE junction. Reviewed, Interpreted and Dictated by Raj Epstein III, MD Transcribed by Michelle Richard Authenticated by Raj Epstein III, MD on 10/06/2021 01:50:19 PM [facility]
[2021-10-06 10:09] LABS: Blood Urea Nitrogen 9 mg/dl (7-17); Estimated Glomerular Filt Rate 70 ml/min (>60); GFR (African American) 85 ML/MIN (>60)
== END ==
PROVIDERS: PCP Internal Medicine Adolescent Medicine; Visit Provider Internal Medicine Adolescent Medicine
DX: R10.11 Right upper quadrant pain (principal); R07.89 Other chest pain; C50.919 Malignant neoplasm of unspecified site of unspecified female breast; N28.9 Disorder of kidney and ureter, unspecified
CPT/HCPCS: 36415; 71260; 74177; 82565; 84520; Q9967

== ENCOUNTER → 2022-03-25 09:36 | Outpatient (CLI) | payer MEDICARE, SELFPAY ==
--- NOTE | 2022-03-25 09:40 | MM_ITS ---
PROCEDURE INFORMATION: Exam: MG Bilateral Screening 3D Mammography Exam date and time: 03/25/2022 9:51 AM Age: 71 years old Clinical indication: Screening examination; Personal history of right breast cancer; Lumpectomy TECHNIQUE: Imaging protocol: Bilateral Screening tomosynthesis and 2D mammography including computer-aided detection (CAD) when performed. COMPARISON: 1. MG MM DIG MAMM DX UNILAT RT CAD 07/30/2021 1:10 PM 2. MG MAMMO POST CLIP PLACEMENT RIGHT 03/11/2021 2:24 PM FINDINGS: MAMMOGRAPHY: Breast composition: There are scattered areas of fibroglandular density. Mass: None. Architectural distortion: None. Calcifications: No suspicious calcifications. Asymmetric density: None. Skin thickening: None. Axillary adenopathy: None. IMPRESSION: No mammographic evidence of malignancy. Annual screening is recommended unless otherwise clinically indicated. ASSESSMENT: BI-RADS Category 1: Negative
== END ==
PROVIDERS: PCP Internal Medicine Adolescent Medicine; Visit Provider Internal Medicine Hematology & Oncology
DX: Z12.31 Encounter for screening mammogram for malignant neoplasm of breast (principal)
CPT/HCPCS: 77063; 77067

== ENCOUNTER → 2022-06-24 13:41 | Outpatient (CLI) | payer MEDICARE, SELFPAY ==
--- NOTE | 2022-06-24 13:43 | MM_ITS ---
PROCEDURE INFORMATION: Exam: MG Right Diagnostic Breast Tomosynthesis Exam date and time: 06/24/2022 1:40 PM Age: 72 years old Clinical indication: Right breast palpable lump; Personal history of right breast cancer; Lumpectomy; Palpable RT axillary breast nodule, with h/o RT breast cancer TECHNIQUE: Imaging protocol: Right Diagnostic tomosynthesis and 2D mammography including computer-aided detection (CAD) when performed. Unilateral or bilateral exam. COMPARISON: 1. MG MM DIG SCREENING MAMM BI W/CAD 03/25/2022 9:51 AM 2. MG MM DIG MAMM DX UNILAT RT CAD 07/30/2021 1:10 PM 3. MG MAMMO POST CLIP PLACEMENT RIGHT 03/11/2021 2:24 PM 4. US BREAST RT COMPLETE 07/30/2021 1:45 PM FINDINGS: MAMMOGRAPHY: There are scattered areas of fibroglandular density. There are stable postoperative findings within the breast. Stable benign-appearing calcifications are present. In the region of palpable concern as denoted by the skin marker upper outer posterior right breast, only normal fatty and glandular tissues are present No new mass, architectural distortion, or suspicious calcifications have developed to suggest malignancy. No axillary adenopathy. IMPRESSION: No mammographic evidence of malignancy. Recommend annual screening mammography unless otherwise clinically indicated. Careful clinical follow-up regarding the patient's palpable lump is required. Biopsy should be performed if clinically warranted ASSESSMENT: BI-RADS category 2: Benign
--- NOTE | 2022-06-24 14:23 | US_ITS ---
PROCEDURE INFORMATION: Exam: US Right Breast, Complete Exam date and time: 06/24/2022 3:11 PM Age: 72 years old Clinical indication: Mass, lump, or swelling; Right; Prior surgery; Surgery date: 6+ months; Surgery type: RT breast lumpectomy --nodes removed; Additional info: Palpable area RT axillary region, h/o RT breast lumpectomy TECHNIQUE: Imaging protocol: Complete ultrasound of all four quadrants of the Right breast and the retroareolar regions, including ultrasound of the axilla when performed. COMPARISON: No relevant recent comparison exams. FINDINGS: Breast: High resolution sonography of the RIGHT breast/axillary region demonstrates no suspicious cystic or solid mass. Morphologically normal appearing oval lymph nodes with a fatty/vascular hilum in the RIGHT axilla. IMPRESSION: No suspicious cystic or solid mass at the site of palpable abnormality in the RIGHT axilla. ASSESSMENT: BI-RADS 0: Recommend correlation with pertinent clinical history, comparison with relevant prior studies and follow-up as clinically indicated.
== END ==
PROVIDERS: PCP Internal Medicine Adolescent Medicine; Visit Provider Internal Medicine Hematology & Oncology
DX: C50.511 Malignant neoplasm of lower-outer quadrant of right female breast (principal); Z17.0 Estrogen receptor positive status [ER+]
CPT/HCPCS: 76641; 77061; 77065; G0279

== ENCOUNTER → 2022-07-02 12:29 | Outpatient (CLI) | payer MEDICARE, SELFPAY ==
[2022-07-02 13:18] LABS: Hemoglobin A1C 7.2 % (4.0-6.0)
[2022-07-02 13:19] LABS: Alanine Aminotransferase 48 U/L (12-78); Albumin Level 4.7 g/dl (3.5-5.0); Albumin/Globulin Ratio 1.9 (1.1-1.8); Alkaline Phosphatase 94 U/L (38-126); Anion Gap 17.6 mEq/L (5-15); Aspartate Amino Transferase 61 U/L (14-36); Bilirubin,Total 0.6 mg/dl (0.2-1.3); Blood Urea Nitrogen 13 mg/dl (7-17); Calcium 10.2 mg/dl (8.4-10.2); Carbon Dioxide 32 mmol/L (22.0-30.0); Chloride 99 mmol/L (98-107); Estimated Glomerular Filt Rate 70 ml/min (>60); GFR (African American) 85 ML/MIN (>60); Globulin 2.5 g/dL (1.3-3.2); Glucose 111 mg/dl (74-100); Potassium 4.6 mmoL/L (3.5-5.1); Sodium 144 mmol/L (136-145); Total Protein,Serum 7.2 g/dl (6.3-8.2)
[2022-07-02 13:37] LABS: Free Thyroxine Index 2.5 ug/dL (5.93-13.13); T4 (Thyroxine) 7.8 ug/dl (5.53-11.0); Triiodothryronine (T3) Uptake 32 % (23.5-40.5)
[2022-07-02 13:51] LABS: Thyroid Stimulating Hormone 1.37 uIU/mL (0.465-4.68)
[2022-07-02 14:10] LABS: Vitamin B12 955 pg/mL (239-931)
[2022-07-02 21:42] LABS: Basophils # 0.1 K/mm3 (0-0.2); Basophils % 1.3 % (0.1-2.0); Eosinophils # 0.2 K/mm3 (0.0-0.4); Hematocrit 52.4 % (37.0-47.0); Hemoglobin 16.4 g/dL (12.2-16.2); Mean Corpuscular HGB Conc 31.3 g/dL (31.8-35.4); Mean Corpuscular Volume 99.1 fl (81-99); Mean Platelet Volume 8.9 fl (7.4-10.4); Monocytes # 0.4 K/mm3 (0.1-1.0); Monocytes % 5.2 % (1.7-9.3); Neutrophils # 4.3 K/mm3 (1.8-7.8); Neutrophils % 61.5 % (37.0-80.0); Platelet Count 207 K/mm3 (142-424); Red Blood Count 5.28 M/mm3 (4.20-5.40); Red Cell Distribution Width 13.1 % (11.5-17.5); White Blood Count 6.9 K/mm3 (4.8-10.8)
== END ==
PROVIDERS: PCP Internal Medicine Adolescent Medicine; Visit Provider Internal Medicine Adolescent Medicine
DX: E11.9 Type 2 diabetes mellitus without complications (principal); R06.09 Other forms of dyspnea; R60.0 Localized edema; G80.9 Cerebral palsy, unspecified; Z79.84 Long term (current) use of oral hypoglycemic drugs
CPT/HCPCS: 36415; 80053; 82607; 83036; 84436; 84443; 84479; 85025

== ENCOUNTER → 2022-07-08 10:02 | Outpatient (CLI) | payer MEDICARE, SELFPAY ==
--- NOTE | 2022-07-08 | CA_ITS ---
FINAL REPORT TECHNIQUE: Ultrasound images of the deep venous system were obtained from the left groin to the calf veins. CLINICAL HISTORY: HTN, left leg edema x 3 weeks. Patient states she just finished hormonal therapy for breast cancer. 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 She states 3 weeks ago she had a pain in the posterior thigh region that only last 1 or 2 days but was followed with edema x 3 weeks. FINDINGS: The deep venous system is normally compressible. Normal flow is identified. IMPRESSION: No evidence of left lower extremity DVT. Reviewed, Interpreted and Dictated by Uriel Bai MD Transcribed by Isaiah Bryson Authenticated and . [facility]
--- NOTE | 2022-07-08 10:12 | CT_ITS ---
FINAL REPORT TECHNIQUE: Thin section axial CT images were performed from the lung apices to the upper abdomen after the administration of IV contrast. 3-D and MIP reconstructions performed. This study was performed with techniques to keep radiation doses as low as reasonably achievable (ALARA). Individualized dose reduction techniques using automated exposure control or adjustment of mA and/or kV according to the patient's size were employed. CLINICAL HISTORY: LEG SWELLING, DYSPNEA FINDINGS: Mediastinal vasculature is well opacified. No pulmonary filling defects are identified. The thoracic aorta is patent without evidence of dissection. There is a moderate hiatal hernia. There is no axillary adenopathy. There is no mediastinal or hilar adenopathy. The heart size is normal. There is no pleural or pericardial effusion. There is mild scarring at the left lung base. There is a 6 mm non noncalcified nodule in the right lower lobe well seen on image 37 of series 3. Limited images of the upper abdomen demonstrate a small benign-appearing cyst in the left lobe of the liver measuring 1.8 cm. The gallbladder is surgically absent. IMPRESSION: No evidence of pulmonary embolism or aortic dissection. 6 mm noncalcified nodule in the right lower lobe. Per Fleischner criteria CT chest in 6-12 months is recommended. Reviewed, Interpreted and Dictated by Uriel Bai MD Transcribed by Zari Calvillo Authenticated and [facility]
--- NOTE | 2022-07-08 10:15 | CT_ITS ---
FINAL REPORT TECHNIQUE: Axial images were obtained through the chest without contrast. This study was performed with techniques to keep radiation doses as low as reasonably achievable, (ALARA). Individualized dose reduction techniques using automated exposure control or adjustment of mA and/or kV according to the patient's size were employed. CLINICAL HISTORY: LEG SWELLING DYSPNEA FINDINGS: The heart size is normal. There is no pericardial or pleural effusion. There is a moderate hiatal hernia. There is mild scarring in the left lung base. There is a 6 mm new noncalcified nodule in the right lower lobe well seen on image 38 of series 2. Limited images of the upper abdomen demonstrate postoperative changes in the upper mid abdomen. There is a benign-appearing cyst in the left lobe of the liver measuring 1.8 cm. IMPRESSION: 6 mm noncalcified nodule in the right lower lobe lung nodule. Per Fleischner criteria, chest CT in 6-12 months is recommended. Moderate hiatal hernia. Benign appearing cyst in left lobe of the liver. Reviewed, Interpreted and Dictated by Uriel Bai MD Transcribed by Zari Calvillo Authenticated and [facility]
== END ==
PROVIDERS: PCP Internal Medicine Adolescent Medicine; Visit Provider Internal Medicine Adolescent Medicine
DX: R06.09 Other forms of dyspnea (principal); R60.0 Localized edema; M79.605 Pain in left leg
CPT/HCPCS: 71250; 71275; 93971; Q9967

== ENCOUNTER → 2022-09-08 14:43 | Outpatient (CLI) | payer MEDICARE, SELFPAY ==
--- NOTE | 2022-09-08 14:47 | US_ITS ---
FINAL REPORT CLINICAL HISTORY: NODULE FINDINGS: THYROID ULTRASOUND Sonographic images of the thyroid was obtained. The right lobe of the thyroid measures 4.1 x 1.5 x 1.2 cm. The left lobe of the thyroid measures 3.0 x 1.1 x 0.7 cm. The isthmus measures 3 mm. No nodule or masses are identified. There are small right neck lymph nodes, nonspecific and likely reactive. IMPRESSION: No thyroid nodule or mass is identified. Small right neck lymph nodes are nonspecific and likely reactive. Reviewed, Interpreted and Dictated by Raj Epstein III, MD Transcribed by Michelle Richard Authenticated and [facility]
== END ==
PROVIDERS: PCP Internal Medicine Adolescent Medicine; Visit Provider Otolaryngology
DX: E04.1 Nontoxic single thyroid nodule (principal)
CPT/HCPCS: 76536

== ENCOUNTER → 2022-10-22 10:50 | Outpatient (CLI) | payer MEDICARE, SELFPAY ==
--- NOTE | 2022-10-22 10:55 | XR_ITS ---
FINAL REPORT CLINICAL HISTORY: ACUTE MIDLINE BACK PAIN, fall Jul 2022 FINDINGS: THORACIC SPINE Three views demonstrate no acute fracture. There is a mild chronic wedge deformity of T11. Mild degenerative change with osteophytes are present. There is no malalignment. IMPRESSION: Degenerative and chronic appearing findings. Reviewed, Interpreted and Dictated by Raj Epstein III, MD Transcribed by Torri Hastings Authenticated and [facility]
== END ==
PROVIDERS: PCP Internal Medicine Adolescent Medicine; Visit Provider Internal Medicine Adolescent Medicine
DX: M54.6 Pain in thoracic spine (principal)
CPT/HCPCS: 72072

== ENCOUNTER → 2022-10-27 11:36 | Outpatient (CLI) | payer MEDICARE, SELFPAY ==
--- NOTE | 2022-10-27 | CA_ITS ---
APPROVED REPORT Exam: Exercise Treadmill Technologist: Marleen Newell, Ht: 5 ft 9 in Wt: 169 lbs BSA: 1.92 m2 HR: 72 bpm BP: 146/68 mmHg Indications: CP, SOA Medical History Medications: Amlodipine,,,,, Propranolol,,,,, Losartan,,,,, Nortriptylin,,,,, TrULicity,,,,, Relpax,,,,, Basiglak,,,,, Stress Test Details Test: Oskar HR Resting HR: 80 bpm Max Heart Rate (APMHR): 146.312182 bpm Max HR Achieved: 217 bpm Target HR (85% APMHR): 124.165969 bpm % of APMHR: 148.63 Recovery HR: 92 bpm BP Resting BP: 155/78 mmHg Max BP: 186/71 mmHg Recovery BP: 168.0/70.0 mmHg ECG Resting ECG: NSR, borderline 1* AVB Clinical Exercise duration: 05:30 min Highest Stage Achieved: II Exercise capacity: 7.0 METs Stress ECG Conclusion Exercised 5:30 into stage II Oskar Protocol. Max HR: 122 % of PM: 84% Max BP: 186/71 METs: 7.0 Test stopped due to: SOA, Leg fatigue Symptoms: No CP. Arrhythmias/Ectopy: None ST-T Changes: Apprx 0.5mm horizontal ST depression inferiorly & laterally Conclusion: within normal GXT for HR achieved (84% of PM). Myoview images reported separately. Test Summary REST . . . . . . . Sitting REST . . . . . . . Standing REST 04:33 0.0 0.0 80 . 155/ 78 . . Stage 1 01:00 10.0 1.7 92 . . . . Stage 1 02:00 10.0 1.7 102 . . . . Stage 1 03:00 10.0 1.7 109 . 156/ 60 . . Stage 2 01:00 12.0 2.5 114 . . . . Stage 2 02:00 12.0 2.5 120 . . . . Stage 2 02:30 12.0 2.5 122 . . . Stop exercise at 05:30 RECOVERY 01:00 0.0 0.0 115 . . . . RECOVERY 02:00 0.0 0.0 107 . . . . RECOVERY 03:00 0.0 0.0 98 . 186/ 71 . . RECOVERY 04:00 0.0 0.0 96 . 186/ 71 . . RECOVERY 05:00 0.0 0.0 95 . 173/ 71 . . RECOVERY 06:00 0.0 0.0 92 . 173/ 71 . . RECOVERY 06:12 0.0 0.0 90 . 173/ 71 . . Electronically signed by : Lele Michaels MD 10/27/2022 16:39:09
--- NOTE | 2022-10-27 11:40 | NM_ITS ---
APPROVED REPORT Exam: Nuclear Stress Test Indication: HTN, D.M., FM HX, C.P., SOB, SYNCOPE, FATIGUE, ABN EKG Patient Location: Outpatient Stress Tech: [facility] Tech:Marta Lobo, ARRT RT (R)(N)(M) Ht: 5 ft 9 in Wt: 169 lbs Bra Size: B HR: 72 bpm BP: 146/68 mmHg BSA: 1.92 m2 TID: 1.25 BMI: 24.9 History: HTN, D.M., FM HX, C.P., SOB, SYNCOPE, FATIGUE, ABN EKG Procedure: Patient exercised on Oskar protocol 5:30 minutes and sec, resting heart rate 72 bpm, resting blood pressure 146/68 mmHg, with exercise maximum heart rate achived was 122 bpm which is 84 % of the maximum predicted heart rate and blood pressure was 186/71 mmHg. Test was stopped due to FATIGUE, SOB. Patient denied any complaint of chest pain. Patient has Adequate exercise capacity, achieved 7.0 METs of workload on treadmill, the blood pressure response to exercise was Adequate. Electrocardiogram Resting electrocardiogram shows sinus rhythm, with exercise there is less than 1.[address] segment depression noted from the baseline EKG. The EKG portion of the exercise Myoview is nondiagnostic as patient did not achieve the target heart rate. Cardiac Stress and Resting SPECT Images: Cardiac Stress and Resting SPECT images were obtained using technetium 99m Myoview 32.2 mCi stress and 10.66 mCi at rest. Gated SPECT analysis of segmental wall motion and calculation of the ejection fraction also done. Prone images were also obtained. Cardiac stress and rest respectively show uniform myocardial activity without segmental perfusion abnormality, computer derived ejection fraction is 62% with no regional wall motion abnormality, right ventricle is normal size and contractility. Conclusion: 1. The EKG portion of the exercise Myoview was nondiagnostic as patient did not achieve the target heart rate, patient has adequate exercise capacity achieved 7 METS of workload on treadmill, the blood pressure response to exercise was adequate, there was no exercise-induced chest discomfort. 2. No scintigraphic evidence of reversible ischemia seen, compared to ejection fraction is 62% with no regional wall motion abnormality, right ventricle is normal size and contractility. 3. Normal exercise Myoview study at 84% of the maximum predicted heart rate. Electronically signed by : Lele Michaels MD 10/27/2022 16:50:24
== END ==
PROVIDERS: PCP Internal Medicine Adolescent Medicine; Visit Provider Internal Medicine Adolescent Medicine
DX: R07.89 Other chest pain (principal)
CPT/HCPCS: 78452; 93017; A9502

== ENCOUNTER → 2022-11-17 11:17 | Outpatient (CLI) | payer MEDICARE, SELFPAY ==
--- NOTE | 2022-11-17 11:22 | XR_ITS ---
FINAL REPORT CLINICAL HISTORY: right shoulder pain FINDINGS: RIGHT SHOULDER Three views were obtained. There is no acute fracture or dislocation. There are minimal hypertrophic changes of the AC and glenohumeral joints. No soft tissue abnormality is identified. IMPRESSION: No acute process. Reviewed, Interpreted and Dictated by Uriel Bai MD Transcribed by Torri Hastings Authenticated and [facility]
--- NOTE | 2022-11-17 11:37 | XR_ITS ---
FINAL REPORT CLINICAL HISTORY: PAIN OF RIGHT CLAVICLE FINDINGS: RIGHT CLAVICLE Two views were obtained. There is no acute fracture or dislocation. The joint spaces appear normal. No soft tissue abnormality is identified. IMPRESSION: No acute process. Reviewed, Interpreted and Dictated by Uriel Bai MD Transcribed by Torri Hastings Authenticated and [facility]
== END ==
PROVIDERS: PCP Internal Medicine Adolescent Medicine; Visit Provider Internal Medicine Adolescent Medicine
DX: M25.511 Pain in right shoulder (principal); M89.8X1 Other specified disorders of bone, shoulder
CPT/HCPCS: 73000; 73030

== ENCOUNTER → 2022-12-02 14:01 | Outpatient (CLI) | payer MEDICARE, SELFPAY ==
--- NOTE | 2022-12-02 14:07 | CT_ITS ---
FINAL REPORT TECHNIQUE: Axial images were obtained through the chest without contrast. CLINICAL HISTORY: LUNG NODULE FINDINGS: CT CHEST W/O CONTRAST The lungs are clear. The heart size is normal. There is dense coronary artery calcification. There is a moderate hiatal hernia. There is no pericardial or pleural effusion. Limited images of the upper abdomen demonstrate postoperative changes from cholecystectomy. There is a 2.0 cm benign-appearing cyst in the left liver lobe. A 6 mm nodule in the superior segment of the right lower lobe is stable. This is seen on image 123 of series 3. There is scarring in the left lung base. IMPRESSION: Stable nodule in the superior segment of the right lower lobe. Reviewed, Interpreted and Dictated by Uriel Bai MD Transcribed by Michelle Richard Authenticated and [facility]
== END ==
PROVIDERS: PCP Internal Medicine Adolescent Medicine; Visit Provider Nurse Practitioner Family
DX: R91.1 Solitary pulmonary nodule (principal)
CPT/HCPCS: 71250

== ENCOUNTER → 2022-12-14 08:57 | Outpatient (CLI) | payer MEDICARE, SELFPAY ==
--- NOTE | 2022-12-14 09:00 | CA_ITS ---
FINAL REPORT CLINICAL HISTORY: dizziness, HTN, DM. FINDINGS: An ultrasound of the carotid arteries was performed. Duplex Doppler evaluation with spectral analysis was performed. The peak systolic velocity of the right common carotid artery is 104 cm/s. The peak systolic velocity of the right internal carotid artery is 123 cm/s and end diastolic velocity 21 cm/s. A small amount of plaque is present. The right external carotid artery is patent. The right vertebral artery is patent with antegrade flow. ICA/CCA ratio: 1.5 The peak systolic velocity of the left common carotid artery is 147 cm/s. The peak systolic velocity of the left internal carotid artery is 114 cm/s and end diastolic velocity 25 cm/s. A small amount of plaque is present. The left external carotid artery is patent. The left vertebral artery is patent with antegrade flow. ICA/CCA ratio: 1.2 Bilateral patent vertebral arteries with antegrade flow. IMPRESSION: Less than 50% bilateral carotid stenosis. Reviewed, Interpreted and Dictated by Raj Epstein III, MD Transcribed by Isaiah Bryson Authenticated and [facility]
== END ==
PROVIDERS: PCP Internal Medicine Adolescent Medicine; Visit Provider Nurse Practitioner Family
DX: I65.23 Occlusion and stenosis of bilateral carotid arteries (principal); R00.2 Palpitations; I10 Essential (primary) hypertension; R26.89 Other abnormalities of gait and mobility
CPT/HCPCS: 93880

== ENCOUNTER → 2022-12-31 07:11 | Outpatient (CLI) | payer MEDICARE, SELFPAY ==
--- NOTE | 2022-12-31 07:33 | MR_ITS ---
FINAL REPORT CLINICAL HISTORY: SYNCOPE AND COLLAPSE. hx breast cancer 5 years ago. headache, dizziness and blurred vision. forgetfulness. FINDINGS: Multi planar MR imaging was obtained through the brain without contrast. The midline structures appear intact. There is no evidence of Chiari malformation. There are few tiny foci of abnormal signal in the deep white matter bilaterally. On diffusion-weighted images there is no evidence of restricted diffusion. There is abnormal signal throughout the left maxillary sinus consistent with chronic sinusitis. The seventh and eighth nerve root complexes are intact. IMPRESSION: Tiny foci of abnormal signal in the deep white matter, may represent chronic ischemic change. Reviewed, Interpreted and Dictated by Uriel Bai MD Transcribed by Torri Hastings Authenticated and [facility]
== END ==
PROVIDERS: PCP Internal Medicine Adolescent Medicine; Visit Provider Nurse Practitioner
DX: R55 Syncope and collapse (principal)
CPT/HCPCS: 70551

== ENCOUNTER 2023-02-22 17:00 | Outpatient (RCR) | payer MEDICARE, SELFPAY | END 2023-02-22 17:05 | disposition home or self-care (01) | LOC: PT 17:00 | PROVIDERS: PCP Internal Medicine Adolescent Medicine; Visit Provider Orthopaedic Surgery | DX: M25.572 Pain in left ankle and joints of left foot (principal); S93.402A Sprain of unspecified ligament of left ankle, initial encounter | CPT/HCPCS: 97010; 97014; 97110; 97140; 97163; G0283 ==

== ENCOUNTER 2023-02-22 17:00 | Outpatient (RCR) | payer MEDICARE, SELFPAY | END 2023-02-22 17:05 | disposition home health service (06) | LOC: PT 17:00 | PROVIDERS: PCP Internal Medicine Adolescent Medicine | DX: G62.89 Other specified polyneuropathies (principal) | CPT/HCPCS: 97112; 97163; 97530 ==

== ENCOUNTER → 2023-04-14 09:22 | Outpatient (CLI) | payer MEDICARE, SELFPAY ==
--- NOTE | 2023-04-14 09:30 | XR_ITS ---
FINAL REPORT CLINICAL HISTORY: Left foot callus COMPARISON: None FINDINGS: LEFT FOOT: Three views of the left foot were obtained. There is no acute fracture or dislocation. There is mild hallux valgus deformity. There is mild degenerative change. There is soft tissue swelling lateral to the fifth metatarsal head. Small plantar calcaneal spur is noted. IMPRESSION: Mild degenerative change without acute bony abnormality. Soft tissue swelling lateral to the fifth metatarsal head. Reviewed, Interpreted and Dictated by Raj Epstein III, MD Transcribed by Fernanda Campuzano Authenticated and . [facility]
[2023-04-14 10:14] LABS: Basophils % 0.5 % (0.1-2.0); Eosinophils # 0.2 K/mm3 (0.0-0.4); Eosinophils % 4.6 % (0.1-12.0); Hematocrit 44.8 % (37.0-47.0); Hemoglobin 15.3 g/dL (12.2-16.2); Lymphocytes # 1.7 K/mm3 (0.7-4.5); Lymphocytes % 32.5 % (10-50); Mean Corpuscular HGB Conc 34.2 g/dL (31.8-35.4); Mean Corpuscular Hemoglobin 31.8 pg (27.0-31.2); Mean Corpuscular Volume 92.9 fl (81-99); Monocytes # 0.3 K/mm3 (0.1-1.0); Monocytes % 6.6 % (1.7-9.3); Neutrophils # 2.9 K/mm3 (1.8-7.8); Platelet Count 187 K/mm3 (142-424); Red Blood Count 4.82 M/mm3 (4.20-5.40); Red Cell Distribution Width 12.6 % (11.5-17.5); White Blood Count 5.2 K/mm3 (4.8-10.8)
[2023-04-14 10:35] LABS: Alanine Aminotransferase 31 U/L (12-78); Albumin Level 4.1 g/dl (3.5-5.0); Albumin/Globulin Ratio 1.6 (1.1-1.8); Alkaline Phosphatase 49 U/L (38-126); Anion Gap 11.7 mEq/L (5-15); Aspartate Amino Transferase 35 U/L (14-36); Bilirubin,Total 0.7 mg/dl (0.2-1.3); Blood Urea Nitrogen 15 mg/dl (7-17); Calcium 9.1 mg/dl (8.4-10.2); Carbon Dioxide 31 mmol/L (22.0-30.0); Chloride 103 mmol/L (98-107); Estimated Glomerular Filt Rate 70 ml/min (>60); GFR (African American) 85 ML/MIN (>60); Globulin 2.5 g/dL (1.3-3.2); Glucose 153 mg/dl (74-100); Potassium 3.7 mmoL/L (3.5-5.1); Sodium 142 mmol/L (136-145); Total Protein,Serum 6.6 g/dl (6.3-8.2)
[2023-04-14 10:41] LABS: C-Reactive Protein 1.8 mg/L (0-4)
[2023-04-14 10:54] LABS: Erythrocyte Sedimentation Rate 19 mm/hr (0-30)
[2023-04-14 11:59] LABS: Hemoglobin A1C 6.4 % (4.0-6.0)
== END ==
PROVIDERS: PCP Internal Medicine Adolescent Medicine; Visit Provider Nurse Practitioner Family
DX: E11.42 Type 2 diabetes mellitus with diabetic polyneuropathy (principal); M79.672 Pain in left foot; L84 Corns and callosities
CPT/HCPCS: 36415; 73630; 80053; 83036; 85025; 85651; 86140

== ENCOUNTER 2023-07-11 10:00 | Outpatient (RCR) | payer MEDICARE, SELFPAY | END 2023-07-11 11:00 | disposition home or self-care (01) | LOC: PT 10:00 | PROVIDERS: PCP Internal Medicine Adolescent Medicine; Visit Provider Student in an Organized Health Care Education/Training Program | DX: M25.572 Pain in left ankle and joints of left foot (principal); S93.402A Sprain of unspecified ligament of left ankle, initial encounter | CPT/HCPCS: 97010; 97014; 97110; 97163; 97530; 97535; G0283 ==

== ENCOUNTER 2023-09-07 15:45 | Outpatient (CLI) | payer MEDICARE, SELFPAY ==
--- NOTE | 2023-09-07 16:05 | US_ITS ---
FINAL REPORT TECHNIQUE: Ultrasound soft tissues neck CLINICAL HISTORY: PAIN ON RIGHT COMPARISON: None FINDINGS: ULTRASOUND SOFT TISSUES NECK: Ultrasound examination of the soft tissues of the neck revealed normal-appearing parotid and submandibular glands. There are several small cervical lymph nodes identified, none of which are significantly enlarged. The region the patient designated as painful during the examination is unremarkable in appearance. IMPRESSION: The region the patient designated as painful during the examination is unremarkable in appearance. Several small cervical lymph nodes are identified, none of which are significantly enlarged. Normal-appearing salivary glands. Reviewed, Interpreted and Dictated by Raj Epstein III, MD Transcribed by Maggi Moore Authenticated and . [facility]
== END 2023-09-07 23:59 ==
LOC: RAD 15:46
PROVIDERS: PCP Internal Medicine Adolescent Medicine; Visit Provider Internal Medicine Adolescent Medicine
DX: M54.2 Cervicalgia (principal)
CPT/HCPCS: 76536

== ENCOUNTER 2023-10-07 08:22 | Outpatient (CLI) | payer MEDICARE, SELFPAY ==
[2023-10-07 08:46] LABS: Basophils % 0.4 % (0.1-2.0); Eosinophils # 0.3 K/mm3 (0.0-0.4); Eosinophils % 4.1 % (0.1-12.0); Hematocrit 43.6 % (37.0-47.0); Hemoglobin 15.4 g/dL (12.2-16.2); Lymphocytes # 2.2 K/mm3 (0.7-4.5); Lymphocytes % 34.3 % (10-50); Mean Corpuscular HGB Conc 35.4 g/dL (31.8-35.4); Mean Corpuscular Hemoglobin 32.6 pg (27.0-31.2); Mean Corpuscular Volume 92.3 fl (81-99); Monocytes # 0.4 K/mm3 (0.1-1.0); Monocytes % 6.2 % (1.7-9.3); Neutrophils # 3.5 K/mm3 (1.8-7.8); Neutrophils % 55.1 % (37.0-80.0); Platelet Count 168 K/mm3 (142-424); Red Blood Count 4.73 M/mm3 (4.20-5.40); Red Cell Distribution Width 12.8 % (11.5-17.5); White Blood Count 6.3 K/mm3 (4.8-10.8)
[2023-10-07 09:07] LABS: Hemoglobin A1C 6.9 % (4.0-6.0)
[2023-10-07 09:28] LABS: Alanine Aminotransferase 37 U/L (12-78); Albumin Level 4.2 g/dl (3.5-5.0); Albumin/Globulin Ratio 1.9 (1.1-1.8); Alkaline Phosphatase 52 U/L (38-126); Anion Gap 11.7 mEq/L (5-15); Aspartate Amino Transferase 37 U/L (14-36); Bilirubin,Total 0.5 mg/dl (0.2-1.3); Blood Urea Nitrogen 13 mg/dl (7-17); Calcium 9.5 mg/dl (8.4-10.2); Carbon Dioxide 29 mmol/L (22.0-30.0); Chloride 104 mmol/L (98-107); Chol/HDL Ratio 4.7 (1-3.5); Cholesterol 193 mg/dl (140-200); Estimated Glomerular Filt Rate 61 ml/min (>60); GFR (African American) 74 ML/MIN (>60); Globulin 2.2 g/dL (1.3-3.2); Glucose 166 mg/dl (74-100); HDL Cholesterol 41 mg/dl (40-60); Potassium 3.7 mmoL/L (3.5-5.1); Sodium 141 mmol/L (136-145); Total Protein,Serum 6.4 g/dl (6.3-8.2); Triglycerides 268 mg/dl (30-150); VLDL Cholesterol 54 mg/dL (0-40)
[2023-10-07 09:39] LABS: Direct LDL Cholesterol 111.43 mg/dL (100-129)
[2023-10-07 09:45] LABS: 25-OH Vitamin D, Total 30.3 ng/mL (30-100)
[2023-10-07 10:20] LABS: Vitamin B12 > 1000 pg/mL (239-931)
== END 2023-10-07 23:59 ==
LOC: LAB 08:24
PROVIDERS: PCP Internal Medicine Adolescent Medicine; Visit Provider Internal Medicine Adolescent Medicine
DX: E11.9 Type 2 diabetes mellitus without complications (principal); E78.5 Hyperlipidemia, unspecified; E53.8 Deficiency of other specified B group vitamins; E55.9 Vitamin D deficiency, unspecified; I10 Essential (primary) hypertension; Z79.84 Long term (current) use of oral hypoglycemic drugs; Z79.899 Other long term (current) drug therapy
CPT/HCPCS: 36415; 80053; 80061; 82306; 82607; 83036; 85025

== ENCOUNTER 2024-01-22 09:33 | Emergency (ER) | payer MEDICARE, SELFPAY ==
[2024-01-22 09:50] VITALS: BP 136/55; PULSE 76; RESP 19; TEMP 36.8; O2SAT 96; BMI 26.2
--- NOTE | 2024-01-22 10:06 | XR_ITS ---
PROCEDURE INFORMATION: Exam: XR Left Hand Exam date and time: 01/22/2024 10:50 AM Age: 73 years old Clinical indication: Swelling; Hand; Left; Prior surgery; Surgery date: 6+ months; Surgery type: Joint replaced in 1st digit. Trigger finger; Additional info: Hit hand, swelling TECHNIQUE: Imaging protocol: Radiologic exam of the left hand. Views: 3 or more views. COMPARISON: No relevant prior studies available. FINDINGS: Bones/joints: Internal fixation device in the distal aspect of the ring finger metacarpal. There is no evidence of acute fracture.There is no evidence of malalignment or dislocation. Degenerative changes in the carpal bones Soft tissues: Normal. IMPRESSION: There is no evidence of acute fracture.There is no evidence of malalignment or dislocation.
--- NOTE | 2024-01-22 10:20 | ED_ITS ---
Discharge Plan Disposition Patient Disposition: Home, Self-Care Condition: Good Prescriptions Prescriptions: New triamcinolone acetonide 0.025 % cream 1 applic topical BID Qty: 15 0RF No Action propranolol-hydrochlorothiazid 1 EACH tablet 1 ea PO DAILY repaglinide 0.5 tablet 0.25 mg PO DAILY metformin 1,000 MG tablet 1,000 mg PO BID esomeprazole magnesium 40 MG capsule,delayed release(DR/EC) 40 mg PO DAILY nortriptyline 50 MG capsule 50 mg PO DAILY eletriptan [Relpax] 20 tablet 20 mg PO DAILY ramelteon [Rozerem] 8 tablet 8 mg PO DAILY metronidazole 500 MG tablet 500 mg PO TID Qty: 30 0RF Referrals Follow up/Referrals: Graham Jose MD [Primary Care Provider] - See instructions Activity Restrictions/Add. Instructions Additional Instructions/Restrictions: rest Ice with cold pack for 20 minutes remove may repeat for comfort every hour Sonido wrap for support and swelling no less in the shower. Be sure not too tight but not to lose either Elevate with wrist as much as possible to help reduce swelling and therefore pain Ibuprofen every 6 hours as needed for pain or inflammation. If needs something more you can take Tylenol every 4 hours as needed as long as her primary care has told he was okayed for you to take both. If improving any do not need to follow-up you can bring begin exercising 2-3 weeks after injury. Follow-up immediately if new or worsening symptoms or no noticeable improvement over the next 3-5 days. call ortho if no improvement Clinical Impressions Clinical Impression: Contact dermatitis due to poison chen Contusion of hand, left Qualifiers: Encounter type: initial encounter Qualified Code(s): S60.222A - Contusion of left hand, initial encounter Instructions Patient Instructions: DI for Poison Chen Allergy, DI for Contusion Discharge ED Provider: Maria Elena ([facility])Greg [facility] [place] HPI General Stated complaint: left hand swollen Mode of Arrival: Ambulatory Source of Information: Patient Limitations: No Limitations Time Seen by Provider: 01/22/24 10:20 Description of Symptoms (Recalled from Triage Doc. by RN): Pt hit her hand on shelf. The left hand is swollen and itches. HEENT Symptoms (Recalled from RN notes): Yes Resp Symptoms (Recalled from RN notes): No Skin Symptoms (Recalled from RN notes): No MS Symptoms (Recalled from RN notes): No Functional Status (Recalled from RN notes): n/a History of Present Illness Provider Complaint: 73 yr old female presents for left hand pain, swelling and itching. pt states she hit it on the table yesterday. also has posion chen on legs Related Data Home Medications Medication Instructions Recorded Confirmed eletriptan 20 mg tablet (Relpax) 20 mg PO DAILY MIGRAINE 02/06/18 01/22/24 esomeprazole magnesium 40 mg 40 mg PO DAILY STOMACH 02/06/18 01/22/24 capsule,delayed release metformin 1,000 mg tablet 1,000 mg PO BID Diabetes 02/06/18 01/22/24 nortriptyline 50 mg capsule 50 mg PO DAILY MIAGRAINE 02/06/18 01/22/24 propranolol 80 1 ea PO DAILY Hypertension 02/06/18 01/22/24 mg-hydrochlorothiazide 25 mg tablet ramelteon 8 mg tablet (Rozerem) 8 mg PO DAILY Insomnia 02/06/18 01/22/24 repaglinide 0.5 mg tablet 0.25 mg PO DAILY Diabetes 02/06/18 01/22/24 Previous Rx's Medication Instructions Recorded metronidazole 500 mg tablet 500 mg PO TID #30 tabs 03/05/19 triamcinolone acetonide 0.025 % 1 applic topical BID #15 grams 01/22/24 topical cream Allergies Allergy/AdvReac Type Severity Reaction Status Date / Time duloxetine [From CYMBALTA] Allergy Intermediate LEG Verified 01/22/24 10:13 SWELLING gabapentin [From NEURONTIN] Allergy Intermediate LEG Verified 01/22/24 10:13 SWELLING midazolam [From VERSED] Allergy Intermediate MIGRAINE Verified 01/22/24 10:13 strawberry [STRAWBERRY] Allergy Intermediate MIGRAINES Verified 01/22/24 10:13 Sulfa (Sulfonamide Allergy Intermediate I-HIVES Verified 01/22/24 10:13 Antibiotics) [SULFA (SULFONAMIDE ANTIBIOTICS)] vancomycin [VANCOMYCIN] Allergy Intermediate I-HIVES Verified 01/22/24 10:13 aspirin [ASPIRIN] Allergy Mild MIGRAINES Verified 01/22/24 10:13 codeine [CODEINE] Allergy Mild ITCHING Verified 01/22/24 10:13 metoclopramide Allergy Mild TACHYCARDIA Verified 01/22/24 10:13 [METOCLOPRAMIDE] NSAIDS (Non-Steroidal Allergy Mild GI UPSET Verified 01/22/24 10:13 Anti-Inflamma [NSAIDS (NON-STEROIDAL ANTI-INFLAMMA] DAIRY FOODS (FOOD) Allergy Mild MIGRAINES Uncoded 08/16/17 14:22 PORK Allergy Mild MIGRAINES Uncoded 08/16/17 14:22 Worker's Comp Is this a Worker's Comp case?: No [facility] Disclaimer: The information contained in this section may have been updated after the patient was seen, as this information can be updated by other users. 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 , [employer]) Smoking Status: Never smoker alcohol intake: never current occupational status: employed Travel in the last 8 weeks: None ROS Obtained: Yes All systems reviewed & no additional complaints except as documented Constitutional Constitutional: Reports system reviewed and no additional complaints, except as documented Eyes Eyes: Reports system reviewed and no additional complaints, except as documented ENT Ears, Nose, Mouth, and Throat: Reports system reviewed and no additional complaints, except as documented Cardiovascular Cardiovascular: Reports system reviewed and no additional complaints, except as documented Respiratory Respiratory: Reports system reviewed and no additional complaints, except as documented Gastrointestinal Gastrointestingal: Reports system reviewed and no additional complaints, except as documented Musculoskeletal Musculoskeletal: Reports system reviewed and no additional complaints, except as documented, Reports as per HPI, Reports arthralgias and Reports joint swelling Integumentary/Breasts Skin/Breast: Reports system reviewed and no additional complaints, except as documented Neurologic Neurologic: Reports system reviewed and no additional complaints, except as documented Endocrine Endocrine: Reports system reviewed and no additional complaints, except as documented Physical Exam General General appearance: alert and in no apparent distress Head Head exam: atraumatic Eye Eye exam: Present normal appearance and PERRL ENT ENT exam: Present normal exam Respiratory Respiratory exam: Present normal lung sounds bilaterally Cardiovascular Cardiovascular exam: Present regular rate and normal rhythm Expanded Upper Extremity Exam Left: Hand L/R back image: 2 1. redness, swelling Neurological Exam Neurological exam: Present alert and oriented X3 Skin Skin exam: Present warm and rash Medical Decision Making Medical Records Medical records reviewed: Yes I reviewed the patient's medical records. Jonah Inquiry Pt receiving controlled substance: No Jonah was queried for this patient: No Vital Signs: 01/22/24 09:50 Temperature 98.2 F Temperature Source Oral Pulse Rate [Right Radial] 76 Respiratory Rate 19 Blood Pressure [Right Arm] 136/55 L Blood Pressure Mean [Right Arm] 82 Blood Pressure Source [Right Arm] Automatic Cuff Blood Pressure Position [Right Arm] Sitting 02 Sat by Pulse Oximetry 96 Oxygen Delivery Method Room Air Orders (Tests/Meds): ORDERS Category Date Time Status Hand XR left minimum 3 views [XR hand LT min 3V] Stat Exams 01/22/24 10:06 Ordered
[2024-01-22 11:57] VITALS: BP 136/55; PULSE 76; RESP 19; TEMP 36.8; O2SAT 96
== END 2024-01-22 11:57 | disposition home or self-care (01) ==
PROVIDERS: Emergency Provider Nurse Practitioner Family; PCP Internal Medicine Adolescent Medicine
DX: M79.642 Pain in left hand; S60.222A Contusion of left hand, initial encounter; L23.7 Allergic contact dermatitis due to plants, except food; W22.8XXA Striking against or struck by other objects, initial encounter
CPT/HCPCS: 73130

== ENCOUNTER 2024-01-22 19:20 | Emergency (ER) | payer MEDICARE, SELFPAY ==
[2024-01-22 19:25] VITALS: BP 148/72; PULSE 75; RESP 18; TEMP 36.7; O2SAT 98; BMI 26.1
--- NOTE | 2024-01-22 19:41 | EXP.UTC ---
Discharge Plan Disposition Patient Disposition: Home, Self-Care Condition: Good Prescriptions Prescriptions: New cephalexin 500 mg tablet 500 mg PO BID 10 Days Qty: 20 0RF No Action propranolol-hydrochlorothiazid 1 EACH tablet 1 ea PO DAILY repaglinide 0.5 tablet 0.25 mg PO DAILY metformin 1,000 MG tablet 1,000 mg PO BID esomeprazole magnesium 40 MG capsule,delayed release(DR/EC) 40 mg PO DAILY nortriptyline 50 MG capsule 50 mg PO DAILY eletriptan [Relpax] 20 tablet 20 mg PO DAILY ramelteon [Rozerem] 8 tablet 8 mg PO DAILY metronidazole 500 MG tablet 500 mg PO TID Qty: 30 0RF triamcinolone acetonide 0.025 % cream 1 applic topical BID Qty: 15 0RF Referrals Follow up/Referrals: rGaham Jose MD [Primary Care Provider] - See instructions Clinical Impressions Clinical Impression: Cellulitis of hand Instructions Patient Instructions: Cellulitis Discharge ED Provider: Maria Elena ([facility])Greg [facility] HPI General Stated complaint: Left arm pain and swelling Mode of Arrival: Ambulatory Source of Information: Patient Limitations: No Limitations Time Seen by Provider: 01/22/24 19:43 Description of Symptoms (Recalled from Triage Doc. by RN): Pt was seen her earlier and her left arm in swelling more then before. HEENT Symptoms (Recalled from RN notes): No Resp Symptoms (Recalled from RN notes): No Skin Symptoms (Recalled from RN notes): No MS Symptoms (Recalled from RN notes): Yes Functional Status (Recalled from RN notes): n/a History of Present Illness Provider Complaint: 73 yr old female presents for increase in redness, warmth and swelling- hx of mrsa Related Data Home Medications Medication Instructions Recorded Confirmed eletriptan 20 mg tablet (Relpax) 20 mg PO DAILY MIGRAINE 02/06/18 01/22/24 esomeprazole magnesium 40 mg 40 mg PO DAILY STOMACH 02/06/18 01/22/24 capsule,delayed release metformin 1,000 mg tablet 1,000 mg PO BID Diabetes 02/06/18 01/22/24 nortriptyline 50 mg capsule 50 mg PO DAILY MIAGRAINE 02/06/18 01/22/24 propranolol 80 1 ea PO DAILY Hypertension 02/06/18 01/22/24 mg-hydrochlorothiazide 25 mg tablet ramelteon 8 mg tablet (Rozerem) 8 mg PO DAILY Insomnia 02/06/18 01/22/24 repaglinide 0.5 mg tablet 0.25 mg PO DAILY Diabetes 02/06/18 01/22/24 Previous Rx's Medication Instructions Recorded metronidazole 500 mg tablet 500 mg PO TID #30 tabs 03/05/19 cephalexin 500 mg tablet 500 mg PO BID 10 days #20 tabs 01/22/24 triamcinolone acetonide 0.025 % 1 applic topical BID #15 grams 01/22/24 topical cream Allergies Allergy/AdvReac Type Severity Reaction Status Date / Time duloxetine [From CYMBALTA] Allergy Intermediate LEG Verified 01/22/24 19:37 SWELLING gabapentin [From NEURONTIN] Allergy Intermediate LEG Verified 01/22/24 19:37 SWELLING midazolam [From VERSED] Allergy Intermediate MIGRAINE Verified 01/22/24 19:37 strawberry [STRAWBERRY] Allergy Intermediate MIGRAINES Verified 01/22/24 19:37 Sulfa (Sulfonamide Allergy Intermediate I-HIVES Verified 01/22/24 19:37 Antibiotics) [SULFA (SULFONAMIDE ANTIBIOTICS)] vancomycin [VANCOMYCIN] Allergy Intermediate I-HIVES Verified 01/22/24 19:37 aspirin [ASPIRIN] Allergy Mild MIGRAINES Verified 01/22/24 19:37 codeine [CODEINE] Allergy Mild ITCHING Verified 01/22/24 19:37 metoclopramide Allergy Mild TACHYCARDIA Verified 01/22/24 19:37 [METOCLOPRAMIDE] NSAIDS (Non-Steroidal Allergy Mild GI UPSET Verified 01/22/24 19:37 Anti-Inflamma [NSAIDS (NON-STEROIDAL ANTI-INFLAMMA] DAIRY FOODS (FOOD) Allergy Mild MIGRAINES Uncoded 08/16/17 14:22 PORK Allergy Mild MIGRAINES Uncoded 08/16/17 14:22 Worker's Comp Is this a Worker's Comp case?: No [facility] Disclaimer: The information contained in this section may have been updated after the patient was seen, as this information can be updated by other users. 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 (Reviewed 01/22/24 @ 19:44 by Greg Arredondo ([facility]), [employer]GER [employer]) Smoking Status: Never smoker alcohol intake: never current occupational status: employed Travel in the last 8 weeks: None ROS Obtained: Yes All systems reviewed & no additional complaints except as documented Constitutional Constitutional: Reports system reviewed and no additional complaints, except as documented Eyes Eyes: Reports system reviewed and no additional complaints, except as documented ENT Ears, Nose, Mouth, and Throat: Reports system reviewed and no additional complaints, except as documented Cardiovascular Cardiovascular: Reports system reviewed and no additional complaints, except as documented Respiratory Respiratory: Reports system reviewed and no additional complaints, except as documented Gastrointestinal Gastrointestingal: Reports system reviewed and no additional complaints, except as documented Musculoskeletal Musculoskeletal: Reports system reviewed and no additional complaints, except as documented, Reports as per HPI, Reports arthralgias and Reports joint swelling Integumentary/Breasts Skin/Breast: Reports system reviewed and no additional complaints, except as documented, Reports as per HPI and Reports pruritus Neurologic Neurologic: Reports system reviewed and no additional complaints, except as documented Endocrine Endocrine: Reports system reviewed and no additional complaints, except as documented Hematologic/Lymphatic Henatologic/Lymphatic: Reports system reviewed and no additional complaints, except as documented Physical Exam General General appearance: alert and in no apparent distress Head Head exam: atraumatic Eye Eye exam: Present normal appearance ENT ENT exam: Present normal exam Respiratory Respiratory exam: Present normal lung sounds bilaterally Cardiovascular Cardiovascular exam: Present regular rate and normal rhythm Expanded Upper Extremity Exam Left: Hand L/R back image: 1. redness, swelling L/R Arms Top View: 1. redness,swelling Neurological Exam Neurological exam: Present alert and oriented X3 Skin Skin exam: Present warm Expanded Skin Exam Description: Present erythematous and swelling Medical Decision Making Medical Records Medical records reviewed: Yes I reviewed the patient's medical records. Jonah Inquiry Pt receiving controlled substance: No Jonah was queried for this patient: No Vital Signs: 01/22/24 19:25 Temperature 98.1 F Temperature Source Oral Pulse Rate [Right Radial] 75 Respiratory Rate 18 Blood Pressure [Right Arm] 148/72 H Blood Pressure Mean [Right Arm] 97 Blood Pressure Source [Right Arm] Automatic Cuff Blood Pressure Position [Right Arm] Sitting 02 Sat by Pulse Oximetry 98 Oxygen Delivery Method Room Air
[2024-01-22] MEDS: cephALEXin 500MG CAPSULE 500 MG PO (19:45)
[2024-01-22 19:55] VITALS: BP 148/72; PULSE 75; RESP 18; TEMP 36.7; O2SAT 98
== END 2024-01-22 19:55 | disposition home or self-care (01) ==
PROVIDERS: Emergency Provider Nurse Practitioner Family; PCP Internal Medicine Adolescent Medicine
DX: L03.114 Cellulitis of left upper limb (principal)
CPT/HCPCS: 73130; 99204; 99212; G0463

== ENCOUNTER 2024-02-18 08:06 | Outpatient (CLI) | payer MEDICARE, SELFPAY ==
[2024-02-18 08:42] LABS: Basophils # 0.1 K/mm3 (0-0.2); Basophils % 1.5 % (0.1-2.0); Eosinophils # 0.3 K/mm3 (0.0-0.4); Eosinophils % 3.9 % (0.1-12.0); Hematocrit 45.5 % (37.0-47.0); Hemoglobin 15.8 g/dL (12.2-16.2); Lymphocytes # 1.9 K/mm3 (0.7-4.5); Lymphocytes % 26.9 % (10-50); Mean Corpuscular HGB Conc 34.6 g/dL (31.8-35.4); Mean Corpuscular Hemoglobin 32.7 pg (27.0-31.2); Mean Corpuscular Volume 94.3 fl (81-99); Mean Platelet Volume 9.2 fl (7.4-10.4); Monocytes # 0.4 K/mm3 (0.1-1.0); Monocytes % 6.2 % (1.7-9.3); Neutrophils # 4.4 K/mm3 (1.8-7.8); Neutrophils % 61.5 % (37.0-80.0); Platelet Count 188 K/mm3 (142-424); Red Blood Count 4.83 M/mm3 (4.20-5.40); Red Cell Distribution Width 13.1 % (11.5-17.5); White Blood Count 7.1 K/mm3 (4.8-10.8)
[2024-02-18 09:30] LABS: Chloride 100 mmol/L (98-107); Sodium 138 mmol/L (136-145)
[2024-02-18 09:31] LABS: Potassium 3.9 mmoL/L (3.5-5.1)
[2024-02-18 09:33] LABS: Alanine Aminotransferase 42 U/L (12-78); Alkaline Phosphatase 35 U/L (38-126); Anion Gap 10.9 mEq/L (5-15); Aspartate Amino Transferase 52 U/L (14-36); Bilirubin,Total 0.9 mg/dl (0.2-1.3); Blood Urea Nitrogen 20 mg/dl (7-17); Carbon Dioxide 31 mmol/L (22.0-30.0); Cholesterol 173 mg/dl (140-200); Estimated Glomerular Filt Rate 54 ml/min (>60); GFR (African American) 65 ML/MIN (>60); Triglycerides 302 mg/dl (30-150); VLDL Cholesterol 60 mg/dL (0-40)
[2024-02-18 09:34] LABS: Albumin Level 4.4 g/dl (3.5-5.0); Albumin/Globulin Ratio 1.7 (1.1-1.8); Calcium 9.6 mg/dl (8.4-10.2); Chol/HDL Ratio 4.8 (1-3.5); Globulin 2.6 g/dL (1.3-3.2); Glucose 169 mg/dl (74-100); HDL Cholesterol 36 mg/dl (40-60)
[2024-02-18 09:45] LABS: Direct LDL Cholesterol 95.66 mg/dL (100-129)
[2024-02-18 11:13] LABS: 25-OH Vitamin D, Total 56.8 ng/mL (30-100)
== END 2024-02-18 23:59 | disposition home or self-care (01) ==
LOC: LAB 08:07
PROVIDERS: PCP Internal Medicine Adolescent Medicine; Visit Provider Internal Medicine Adolescent Medicine
DX: E11.9 Type 2 diabetes mellitus without complications (principal); E55.9 Vitamin D deficiency, unspecified; E78.5 Hyperlipidemia, unspecified
CPT/HCPCS: 36415; 80053; 80061; 82306; 83036; 85025

== ENCOUNTER 2024-03-06 10:43 | Outpatient (CLI) | payer MEDICARE, SELFPAY ==
--- NOTE | 2024-03-06 10:50 | CT_ITS ---
FINAL REPORT TECHNIQUE: Axial images through the abdomen and pelvis were performed without contrast. This study was performed with techniques to keep radiation doses as low as reasonably achievable, (ALARA). Individualized dose reduction techniques using automated exposure control or adjustment of mA and/or kV according to the patient's size were employed. CLINICAL HISTORY: KIDNEY STONES COMPARISON: 10/26/2021 FINDINGS: ABDOMEN: There is mild scarring in the lung bases. There are postoperative changes in the region of the GE junction. The heart size is normal. Patient is status post cholecystectomy. There is an 18 mm low-attenuation mass in the lateral segment of the left hepatic lobe which can not be accurately characterized without contrast, likely represents a cyst. The spleen is normal. No adrenal mass is identified. The aorta is normal in caliber. There is no significant free fluid or adenopathy. There is a mass in the right kidney measuring 42 mm which also can not be accurately characterized, may represent a cyst. There is no nephrolithiasis. There is no hydronephrosis. PELVIS: The appendix is not identified, may be surgically absent. No ureteral stones identified. The urinary bladder is unremarkable. There is no significant free fluid or adenopathy. IMPRESSION: Hepatic and renal cysts, both somewhat larger than previous. Consider renal mass protocol CT or MRI to further evaluate and 6-12 months. Reviewed, Interpreted and Dictated by Raj Epstein III, MD Transcribed by Torri Hastings Authenticated and [facility]
== END 2024-03-06 23:59 | disposition home or self-care (01) ==
LOC: RAD 10:44
PROVIDERS: PCP Internal Medicine Adolescent Medicine; Visit Provider Internal Medicine Adolescent Medicine
DX: N20.0 Calculus of kidney (principal)
CPT/HCPCS: 74176

== ENCOUNTER 2024-06-02 11:19 | Outpatient (CLI) | payer MEDICARE, SELFPAY ==
[2024-06-02 12:41] LABS: Blood Urea Nitrogen 13 mg/dl (7-17); Estimated Glomerular Filt Rate 61 ml/min (>60); GFR (African American) 74 ML/MIN (>60)
== END 2024-06-02 23:59 | disposition home or self-care (01) ==
LOC: LAB 11:20
PROVIDERS: PCP Internal Medicine Adolescent Medicine; Visit Provider Internal Medicine Adolescent Medicine
DX: N28.1 Cyst of kidney, acquired (principal)
CPT/HCPCS: 36415; 82565; 84520

== ENCOUNTER 2024-06-04 07:51 | Outpatient (CLI) | payer MEDICARE, SELFPAY ==
--- NOTE | 2024-06-04 07:58 | MR_ITS ---
FINAL REPORT CLINICAL HISTORY: renal and hepatic cyst f/u COMPARISON: 03/06/2024 FINDINGS: Multiplanar MR imaging of the abdomen was performed without and with contrast. There is a 17 mm mass in the medial segment of the left hepatic lobe consistent with a cyst. Liver is otherwise unremarkable. There is no evidence of biliary ductal dilatation. Patient is status postcholecystectomy. There is also a mass in the lower pole of the right kidney measuring 43 mm consistent with a cyst. An 8 mm cystic mass is seen in the inferior pancreatic body which could represent cyst versus small cystic neoplasm. There is no definite contrast-enhancement. No abnormal fluid collection is seen. IMPRESSION: Hepatic and right renal cysts as above. 8 mm pancreatic body mass which could represent cyst versus cystic neoplasm. This can be further evaluated with follow-up MRI in 6 months. Reviewed, Interpreted and Dictated by Raj Epstein III, MD Transcribed by Nora Davies Authenticated and [facility]
[2024-06-04] MEDS: GADOTERIDOL INJ 20ML SYRINGE 16 ML IV (09:11)
[2024-06-04] MEDS: 0.9 % SODIUM CHLORIDE 50 ML VIAL IV (09:11)
[2024-06-04] MEDS: SODIUM CHLORIDE 0.9% 10ML SYR (RAD ONLY) 10 ML IV (09:11)
== END 2024-06-04 23:59 | disposition home or self-care (01) ==
LOC: RAD 07:52
PROVIDERS: PCP Internal Medicine Adolescent Medicine; Visit Provider Internal Medicine Adolescent Medicine
DX: N28.1 Cyst of kidney, acquired (principal); K76.89 Other specified diseases of liver; R93.89 Abnormal findings on diagnostic imaging of other specified body structures
CPT/HCPCS: 74183; A9576

== ENCOUNTER 2024-09-07 12:13 | Emergency (ER) | payer MEDICARE, SELFPAY ==
[2024-09-07 12:15] VITALS: BP 147/61; PULSE 86; RESP 19; TEMP 36.9; O2SAT 98; BMI 24.3
--- NOTE | 2024-09-07 12:25 | HMH.EDGENADL ---
Discharge Plan Disposition Patient Disposition: Home, Self-Care Condition: Good Prescriptions Prescriptions: New hydrocodone-acetaminophen 5-325 mg tablet 1 tab PO Q6H PRN (Reason: pain) Qty: 10 0RF No Action propranolol-hydrochlorothiazid 1 EACH tablet 1 ea PO DAILY repaglinide 0.5 tablet 0.25 mg PO DAILY metformin 1,000 MG tablet 1,000 mg PO BID esomeprazole magnesium 40 MG capsule,delayed release(DR/EC) 40 mg PO DAILY nortriptyline 50 MG capsule 50 mg PO DAILY eletriptan [Relpax] 20 tablet 20 mg PO DAILY ramelteon [Rozerem] 8 tablet 8 mg PO DAILY metronidazole 500 MG tablet 500 mg PO TID Qty: 30 0RF cephalexin 500 mg tablet 500 mg PO BID 10 Days Qty: 20 0RF triamcinolone acetonide 0.025 % cream 1 applic topical BID Qty: 15 0RF Referrals Follow up/Referrals: Jose Bermudez DO [Staff Physician] - See instructions Graham Jose MD [Primary Care Provider] - See instructions Activity Restrictions/Add. Instructions Additional Instructions/Restrictions: Please utilize crutches and do not bear weight at all on your left lower extremity. Please utilize crutches at all times. Be aware that you are at increased fall and injury risk while utilizing crutches. Please call orthopedics to make your follow-up appointment. We have sent medication into your pharmacy to help with pain. Follow-up with your PCP or return to ER for any worsening signs or symptoms as needed. Clinical Impressions Clinical Impression: Closed fibular fracture Qualifiers: Encounter type: initial encounter Fracture alignment: nondisplaced Laterality: left Avulsion fracture of medial malleolus of left tibia Qualifiers: Encounter type: initial encounter Fracture type: closed Qualified Code(s): S82.52XA - Displaced fracture of medial malleolus of left tibia, initial encounter for closed fracture Print Language Print Language: Croatian Discharge ED Provider: Rickie Soriano General Adult HPI <CL Aguilar - Last Filed: 09/07/24 13:40> General Chief complaint: Fall Stated complaint: ao-09/06 1700- Pain L ankle/knee Time Seen by Provider: 09/07/24 12:25 History of Present Illness HPI narrative: Patient presents for evaluation of a left lower extremity injury. Patient states that she stepped in a hole while carrying a box. Her foot remained planted however she fell feeling pain laterally at the left knee and ankle. She has not been able to stand or bear weight since. She is ambulating now with a pair of crutches. She denies any other injury head pain loss of consciousness chest pain shortness of breath. Related Data Home Medications ?Medication ?Instructions ?Recorded ?Confirmed eletriptan 20 mg tablet (Relpax) 20 mg PO DAILY MIGRAINE 02/06/18 01/22/24 esomeprazole magnesium 40 mg 40 mg PO DAILY STOMACH 02/06/18 01/22/24 capsule,delayed release metformin 1,000 mg tablet 1,000 mg PO BID Diabetes 02/06/18 01/22/24 nortriptyline 50 mg capsule 50 mg PO DAILY MIAGRAINE 02/06/18 01/22/24 propranolol 80 1 ea PO DAILY Hypertension 02/06/18 01/22/24 mg-hydrochlorothiazide 25 mg tablet ramelteon 8 mg tablet (Rozerem) 8 mg PO DAILY Insomnia 02/06/18 01/22/24 repaglinide 0.5 mg tablet 0.25 mg PO DAILY Diabetes 02/06/18 01/22/24 Previous Rx's ?Medication ?Instructions ?Recorded metronidazole 500 mg tablet 500 mg PO TID #30 tabs 03/05/19 cephalexin 500 mg tablet 500 mg PO BID 10 days #20 tabs 01/22/24 triamcinolone acetonide 0.025 % 1 applic topical BID #15 grams 01/22/24 topical cream hydrocodone 5 mg-acetaminophen 325 1 tab PO Q6H PRN pain #10 tabs /10/25 mg tablet Allergies Allergy/AdvReac Type Severity Reaction Status Date / Time duloxetine (From CYMBALTA) Allergy Intermediate LEG Verified 01/22/24 19:37 SWELLING gabapentin (From NEURONTIN) Allergy Intermediate LEG Verified 01/22/24 19:37 SWELLING midazolam (From VERSED) Allergy Intermediate MIGRAINE Verified 01/22/24 19:37 strawberry (STRAWBERRY) Allergy Intermediate MIGRAINES Verified 01/22/24 19:37 Sulfa (Sulfonamide Allergy Intermediate I-HIVES Verified 01/22/24 19:37 Antibiotics) (SULFA (SULFONAMIDE ANTIBIOTICS)) vancomycin (VANCOMYCIN) Allergy Intermediate I-HIVES Verified 01/22/24 19:37 aspirin (ASPIRIN) Allergy Mild MIGRAINES Verified 01/22/24 19:37 codeine (CODEINE) Allergy Mild ITCHING Verified 01/22/24 19:37 metoclopramide Allergy Mild TACHYCARDIA Verified 01/22/24 19:37 (METOCLOPRAMIDE) NSAIDS (Non-Steroidal Allergy Mild GI UPSET Verified 01/22/24 19:37 Anti-Inflamma (NSAIDS (NON-STEROIDAL ANTI-INFLAMMA) DAIRY FOODS (FOOD) Allergy Mild MIGRAINES Uncoded 08/16/17 14:22 PORK Allergy Mild MIGRAINES Uncoded 08/16/17 14:22 PFSH <CL Aguilar - Last Filed: 09/07/24 13:40> [facility] Disclaimer: The information contained in this section may have been updated after the patient was seen, as this information can be updated by other users. 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) Smoking Status: Never smoker alcohol intake: never current occupational status: employed Travel in the last 8 weeks: None Have you lived/traveled outside US in past 30 days?: No Contact w/someone who lives/traveled outside US past 30 days?: No Exposure to someone with infectious disease in past 14 days?: No Do you have a fever (greater than 100.4 F or 38 C)?: No Have you tested positive for COVID-19: No Exposed to someone with COVID-19 in past 14 days?: No Do you have a sore throat?: No Do you have a cough?: No Do you have any weakness?: No Do you have any diarrhea?: No Are you experiencing any unusual bleeding?: No Do you have any muscle aches/pain?: No Do you have any abdominal pain?: No Are you experiencing loss of taste or smell?: No Other Medical History Have you received the Flu Vaccine for this season: Yes Have you received the Pneumonia Vaccine: Yes <CL Aguilar - Last Filed: 09/07/24 13:40> ROS Obtained: Yes Systems reviewed as appropriate & no additional complaints except as documented Physical Exam <CL Aguilar - Last Filed: 09/07/24 13:40> General General appearance: alert and in no apparent distress Respiratory Respiratory exam: Present normal lung sounds bilaterally Cardiovascular Cardiovascular exam: Present regular rate Neurological Exam Neurological exam: Present alert and oriented X3 Medical Decision Making <CL Aguilar - Last Filed: 09/07/24 13:40> Medical Records Medical records reviewed: Yes I reviewed the patient's medical records. Screening: Per USPSTF and CDC recommendations, given the prevalence of disease in our region, it is our hospital?s policy to screen for HIV and viral Hepatitis for all patients aged 18 and over and those with ongoing risk factors. Jonah Inquiry Pt receiving controlled substance: No Vital Signs: 09/07/24 12:15 09/07/24 14:25 Temperature 98.5 F 98.5 F Temperature Source Oral Pulse Rate 86 Pulse Rate [Left Radial] 86 Respiratory Rate 19 19 Blood Pressure 147/61 H Blood Pressure [Right Arm] 147/61 H Blood Pressure Mean [Right Arm] 89 02 Sat by Pulse Oximetry 98 Oxygen Delivery Method Room Air Room Air Lab Data Lab results reviewed: Yes I reviewed the patient's lab results. Orders (Tests/Meds): ED MEDICATIONS Discontinued Medications Generic Name Dose Route Start Last Admin Trade Name Freq PRN Reason Stop Dose Admin Acetaminophen 1,000 mg 09/07/24 12:34 09/07/24 12:48 Acetaminophen 500mg Tab PO 09/07/24 12:35 1,000 mg ONCE ONE Administration ORDERS Category Date Time Status Ankle XR - Left minimum 3 Views [XR ankle LT min 3V] Exams 09/07/24 12:29 Completed Stat Foot XR left minimum 3 views [XR foot LT min 3V] Stat Exams 09/07/24 12:29 Completed Knee XR left 3 views [XR knee LT 3V] Stat Exams 09/07/24 12:29 Completed Tibia/fibula XR left 2 views [XR tibia fibula LT 2V] Exams 09/07/24 12:29 Completed Stat Medical Decision Narrative: In summary patient is a 74-year-old female who presents to the emergency department for evaluation of left lower extremity injury. Patient is hemodynamically stable upon arrival, afebrile. Physical exam is remarkable for tenderness to palpation about the fibular head but no palpable bony deformity. Patient has full flexion extension of the knee and is able to move her ankle but is unable to bear weight on the ankle. There is no ecchymosis swelling bony deformity noted at the ankle. There is no evidence of contusion abrasion ecchymosis or edema in the entirety of the lower extremity. Patient is neurovascularly intact distally and palpable DP and PT.. Differential diagnosis includes sprain versus fracture. Initial workup will be conducted with plain film x-rays.. Initial interventions include Tylenol and ibuprofen. Initial workup reviewed by me and my informal interpretation of her plain film imaging shows a proximal and distal fibula fracture and a distal medial malleolus fracture. Given this I had an interactive discussion with Dr. Mora of orthopedics regarding patient management and he requested a posterior slab splint nonweightbearing status and for follow-up in clinic. After posterior slab applied patient still has positive DP PT and is neurovascularly intact distally. Given this patient is appropriate for follow-up with nonweightbearing instructions given as well as fall precautions. Patient to follow-up with orthopedics and she will call to make an appointment. <Rickie Soriano MD - Last Filed: 09/08/24 07:39> Vital Signs: 09/07/24 12:15 09/07/24 14:25 Temperature 98.5 F 98.5 F Temperature Source Oral Pulse Rate 86 Pulse Rate [Left Radial] 86 Respiratory Rate 19 19 Blood Pressure 147/61 H Blood Pressure [Right Arm] 147/61 H Blood Pressure Mean [Right Arm] 89 02 Sat by Pulse Oximetry 98 Oxygen Delivery Method Room Air Room Air Orders (Tests/Meds): ED MEDICATIONS Discontinued Medications Generic Name Dose Route Start Last Admin Trade Name Freq PRN Reason Stop Dose Admin Acetaminophen 1,000 mg 09/07/24 12:34 09/07/24 12:48 Acetaminophen 500mg Tab PO 09/07/24 12:35 1,000 mg ONCE ONE Administration ORDERS Category Date Time Status Ankle XR - Left minimum 3 Views [XR ankle LT min 3V] Exams 09/07/24 12:29 Completed Stat Foot XR left minimum 3 views [XR foot LT min 3V] Stat Exams 09/07/24 12:29 Completed Knee XR left 3 views [XR knee LT 3V] Stat Exams 09/07/24 12:29 Completed Tibia/fibula XR left 2 views [XR tibia fibula LT 2V] Exams 09/07/24 12:29 Completed Stat Medical Decision Narrative: In summary patient is a 74-year-old female who presents to the emergency department for evaluation of left lower extremity injury. Patient is hemodynamically stable upon arrival, afebrile. Physical exam is remarkable for tenderness to palpation about the fibular head but no palpable bony deformity. Patient has full flexion extension of the knee and is able to move her ankle but is unable to bear weight on the ankle. There is no ecchymosis swelling bony deformity noted at the ankle. There is no evidence of contusion abrasion ecchymosis or edema in the entirety of the lower extremity. Patient is neurovascularly intact distally and palpable DP and PT.. Differential diagnosis includes sprain versus fracture. Initial workup will be conducted with plain film x-rays.. Initial interventions include Tylenol and ibuprofen. Initial workup reviewed by me and my informal interpretation of her plain film imaging shows a proximal and distal fibula fracture and a distal medial malleolus fracture. Given this I had an interactive discussion with Dr. Bermudez of orthopedics regarding patient management and he requested a posterior slab splint nonweightbearing status and for follow-up in clinic. After posterior slab applied patient still has positive DP PT and is neurovascularly intact distally. Given this patient is appropriate for follow-up with nonweightbearing instructions given as well as fall precautions. Patient to follow-up with orthopedics and she will call to make an appointment. I was consulted by the TITI, and we discussed the complexity of the problems being addressed. I approved the treatment and management plan for this patient's care in the Emergency Department, thus performing a substantive portion of the medical decision making. Rickie Soriano MD Procedures <CL Aguilar - Last Filed: 09/07/24 13:40> Orthopedic Splinting/Casting Injury #1: Side: left Lower Extremity Injury Location: lower leg Lower Extremity Immobilizer: posterior splint Additional Comments: I personally inspected the splint and examined the patient after cast tech applied the posterior slab. Patient is anatomically correct and neurovascularly intact distally. Post Cast/Splinting Neuro Status: intact Post Cast/Splinting Vasc Status: intact Critical Care <CL Aguilar - Last Filed: 09/07/24 13:40> Critical Care Time Critical Care Time: No
--- NOTE | 2024-09-07 12:29 | XR_ITS ---
FINAL REPORT CLINICAL HISTORY: Stepped in a hole, lateral knee pain FINDINGS: Left tibia fibula Two views were obtained. There is an oblique nondisplaced fracture of the distal fibula. There is also an oblique nondisplaced fracture of the proximal fibula. IMPRESSION: Fractures fractures as above. Reviewed, Interpreted and Dictated by Uriel Bai MD Transcribed by Torri Hastings Authenticated and [facility]
--- NOTE | 2024-09-07 12:29 | XR_ITS ---
FINAL REPORT CLINICAL HISTORY: Stepped in a hole left ankle pain FINDINGS: Left ankle Three views were obtained. There is an oblique, nondisplaced fracture of the distal fibula. A small plantar spur is identified. IMPRESSION: Nondisplaced fracture of the distal fibula. Reviewed, Interpreted and Dictated by Uriel Bai MD Transcribed by Torri Hastings Authenticated and [facility]
--- NOTE | 2024-09-07 12:29 | XR_ITS ---
FINAL REPORT CLINICAL HISTORY: Stepped in a hole left ankle pain FINDINGS: Left foot Three views were obtained. There is no fracture or dislocation. The joint spaces appear normal. There is a vertical, linear density along the plantar aspect of the hindfoot measuring 5 mm consistent with radiopaque foreign body. Mild hallux valgus deformity is identified. IMPRESSION: Foreign body as above. Reviewed, Interpreted and Dictated by Uriel Bai MD Transcribed by Torri Hastings Authenticated and [facility]
--- NOTE | 2024-09-07 12:29 | XR_ITS ---
FINAL REPORT CLINICAL HISTORY: Stepped in a hole, lateral knee pain FINDINGS: Left knee Three views were obtained. There is a tiny osteophyte along the undersurface of the patella. Mild to moderate chondrocalcinosis is identified. There is a nondisplaced fracture of the proximal fibula. IMPRESSION: Nondisplaced fracture of the proximal fibula. Reviewed, Interpreted and Dictated by Uriel Bai MD Transcribed by Torri Hastings Authenticated and [facility]
[2024-09-07] MEDS: ACETAMINOPHEN 500MG TAB 1000 MG PO (12:48)
--- NOTE | 2024-09-07 13:47 | PC.NURSE ---
CL Talbert at [facility] for update on POC
[2024-09-07 14:25] VITALS: BP 147/61; PULSE 86; RESP 19; TEMP 36.9
== END 2024-09-07 14:26 | disposition home or self-care (01) ==
PROVIDERS: Emergency Provider Emergency Medicine; PCP Internal Medicine Adolescent Medicine
DX: S82.402A Unspecified fracture of shaft of left fibula, initial encounter for closed fracture (principal); S82.52XA Displaced fracture of medial malleolus of left tibia, initial encounter for closed fracture; M25.572 Pain in left ankle and joints of left foot; M25.562 Pain in left knee; W19.XXXA Unspecified fall, initial encounter; Y93.89 Activity, other specified; Y92.9 Unspecified place or not applicable
CPT/HCPCS: 29515; 73562; 73590; 73610; 73630; 99283

== ENCOUNTER 2024-10-02 13:28 | Outpatient (CLI) | payer MEDICARE, SELFPAY ==
--- NOTE | 2024-10-02 13:32 | XR_ITS ---
FINAL REPORT CLINICAL HISTORY: left tib fib fx FINDINGS: LEFT TIBIA AND FIBULA 2 views of the left tibia and fibula were obtained and compared to prior exam from 09/07/2024. Again seen are fractures of the proximal and distal fibula which are unchanged from prior exam. Soft tissues are unremarkable. No other fracture is identified. IMPRESSION: Stable fibular fractures as above. Reviewed, Interpreted and Dictated by Uriel Bai MD Transcribed by Nora Davies Authenticated and [facility]
--- NOTE | 2024-10-02 13:32 | XR_ITS ---
FINAL REPORT CLINICAL HISTORY: left ankle fx COMPARISON: 09/07/2024 FINDINGS: LEFT ANKLE Three views of the left ankle were obtained. There is a stable distal fibular fracture. No new fracture is identified. The visualized joint spaces are normally aligned. The soft tissues are unremarkable. IMPRESSION: Stable distal fibular fracture. Reviewed, Interpreted and Dictated by Uriel Bai MD Transcribed by Nora Davies Authenticated and [facility]
== END 2024-10-02 23:59 | disposition home or self-care (01) ==
LOC: RAD 13:29
PROVIDERS: PCP Internal Medicine Adolescent Medicine; Visit Provider Orthopaedic Surgery
DX: S82.52XA Displaced fracture of medial malleolus of left tibia, initial encounter for closed fracture (principal); M25.572 Pain in left ankle and joints of left foot
CPT/HCPCS: 73590; 73610

== ENCOUNTER 2024-10-20 12:15 | Outpatient (CLI) | payer MEDICARE, SELFPAY ==
[2024-10-20 13:09] LABS: Blood Urea Nitrogen 11 mg/dl (7-17); Estimated Glomerular Filt Rate 70 ml/min (>60); GFR (African American) 84 ML/MIN (>60)
== END 2024-10-20 23:59 | disposition home or self-care (01) ==
LOC: LAB 12:16
PROVIDERS: PCP Internal Medicine Adolescent Medicine; Visit Provider Internal Medicine Adolescent Medicine
DX: K86.2 Cyst of pancreas (principal)
CPT/HCPCS: 36415; 82565; 84520

== ENCOUNTER 2024-10-22 06:58 | Outpatient (CLI) | payer MEDICARE, SELFPAY ==
--- NOTE | 2024-10-22 07:04 | MR_ITS ---
FINAL REPORT CLINICAL HISTORY: FATTY LIVER DISEASE, CYST ON PANCREAS FOLLOW UP COMPARISON: 06/04/2024 FINDINGS: Multiplanar MR imaging of the abdomen was performed without and with contrast. The cyst in the inferior hepatic lobe noted on the prior examination remains present. The gallbladder has been surgically resected. The pancreatic lesion noted on the prior MR examination is not well-seen on the current exam, supportive of lack of interval growth. This cystic lesion is best seen on axial T2 weighted image #11, and measures 5 mm in size, slightly smaller than the 7 mm cystic mass seen on the prior MRI. The pancreatic mass is also seen on coronal image #12, of the T2 weighted images, stable as well. No abnormal enhancement is identified. No other mass or adenopathy is identified. There is a lower pole right renal cyst, measuring up to 49 mm in diameter, also stable. The remaining solid organs are unremarkable. No abnormal contrast enhancement is seen on the postcontrast images. Note is also made of a moderate-sized hiatal hernia. IMPRESSION: Subcentimeter pancreatic lesion is not well-seen on the current examination, and there has been no interval growth, and there are suspicious features noted. 12-month follow-up may be considered. Stable hepatic and renal cysts. No new findings are identified. Reviewed, Interpreted and Dictated by Denver Lizarraga MD Transcribed by Maggi Moore Authenticated and [facility]
[2024-10-22] MEDS: GADOTERIDOL INJ 20ML SYRINGE 15 ML IV (08:37)
[2024-10-22] MEDS: SODIUM CHLORIDE 0.9% 10ML SYR (RAD ONLY) 10 ML IV (08:37)
[2024-10-22] MEDS: 0.9 % SODIUM CHLORIDE 50 ML VIAL IV (08:37)
== END 2024-10-22 23:59 | disposition home or self-care (01) ==
LOC: RAD 06:59
PROVIDERS: PCP Internal Medicine Adolescent Medicine; Visit Provider Internal Medicine Adolescent Medicine
DX: K76.0 Fatty (change of) liver, not elsewhere classified (principal); K86.2 Cyst of pancreas
CPT/HCPCS: 74183; 76376; A9576

== ENCOUNTER 2024-10-30 12:54 | Outpatient (CLI) | payer MEDICARE, SELFPAY ==
--- NOTE | 2024-10-30 12:58 | XR_ITS ---
FINAL REPORT CLINICAL HISTORY: lt ankle pain COMPARISON: 10/02/2024 FINDINGS: LEFT ANKLE Three views demonstrate no acute fracture or dislocation. There is insignificant further healing of the distal fibular fracture which is much less apparent than on prior exam. There is increased callus formation. There is an old avulsion fracture of the tip of the medial malleolus. Mild degenerative changes are noted. IMPRESSION: Significant further healing of distal fibular fracture. Reviewed, Interpreted and Dictated by Denver Lizarraga MD Transcribed by Nora Davies Authenticated and [facility]
== END 2024-10-30 23:59 | disposition home or self-care (01) ==
LOC: RAD 12:56
PROVIDERS: PCP Internal Medicine Adolescent Medicine; Visit Provider Physician Assistant
DX: M25.572 Pain in left ankle and joints of left foot (principal); S82.52XA Displaced fracture of medial malleolus of left tibia, initial encounter for closed fracture
CPT/HCPCS: 73610

== ENCOUNTER 2024-10-30 14:26 | Outpatient (RCR) | payer MEDICARE, SELFPAY | END 2024-10-30 23:59 | disposition home or self-care (01) | LOC: PT 14:26 | PROVIDERS: Visit Provider Physician Assistant | DX: S82.52XA Displaced fracture of medial malleolus of left tibia, initial encounter for closed fracture (principal); S82.65XA Nondisplaced fracture of lateral malleolus of left fibula, initial encounter for closed fracture | CPT/HCPCS: 97760 ==

== ENCOUNTER 2024-11-29 13:05 | Outpatient (CLI) | payer MEDICARE, SELFPAY ==
--- NOTE | 2024-11-29 13:12 | XR_ITS ---
FINAL REPORT CLINICAL HISTORY: lt ankle fx COMPARISON: 10/30/2024 FINDINGS: Three views of the left ankle show a healing distal fibular fracture. There is an old avulsion fracture at the tip of the medial malleolus. An old fracture is noted along the lateral talus. The ankle mortise is intact. IMPRESSION: Healing distal fibular fracture with chronic changes as above. Reviewed, Interpreted and Dictated by Denver Lizarraga MD Transcribed by Fernanda Campuzano Authenticated and [facility]
--- NOTE | 2024-11-29 13:12 | XR_ITS ---
FINAL REPORT CLINICAL HISTORY: lt ankle fx f/u COMPARISON: 10/02/2024 FINDINGS: Two views of the left tibia/fibula were obtained. There is a healing distal fibular fracture without significant displacement. The fracture line is less distinct from the previous exam. The tibia is intact. IMPRESSION: Healing distal fibular fracture. Reviewed, Interpreted and Dictated by Denver Lizarraga MD Transcribed by Fernanda Campuzano Authenticated and [facility]
== END 2024-11-29 23:59 | disposition home or self-care (01) ==
LOC: RAD 13:06
PROVIDERS: PCP Internal Medicine Adolescent Medicine; Visit Provider Physician Assistant
DX: M25.572 Pain in left ankle and joints of left foot (principal); S82.52XA Displaced fracture of medial malleolus of left tibia, initial encounter for closed fracture; S82.65XA Nondisplaced fracture of lateral malleolus of left fibula, initial encounter for closed fracture
CPT/HCPCS: 73590; 73610

== ENCOUNTER 2024-12-25 14:37 | Outpatient (RCR) | payer MEDICARE, SELFPAY | END 2024-12-25 23:59 | disposition home or self-care (01) | LOC: PT 14:37 | PROVIDERS: Visit Provider Physician Assistant | DX: M53.3 Sacrococcygeal disorders, not elsewhere classified (principal) | CPT/HCPCS: 97163; 97530 ==

== ENCOUNTER 2025-01-15 15:00 | Outpatient (RCR) | payer MEDICARE, SELFPAY | END 2025-01-15 23:59 | disposition home or self-care (01) | LOC: PT 15:00 | PROVIDERS: Visit Provider Physician Assistant | DX: M53.3 Sacrococcygeal disorders, not elsewhere classified (principal) | CPT/HCPCS: 97014; 97110; 97530; G0283 ==

== ENCOUNTER 2025-03-01 10:21 | Emergency (ER) | payer MEDICARE, SELFPAY ==
--- OUTSIDE RECORDS SUMMARY | 2025-02-01 07:00 | XMS_ITS ---
Author Organization [facility] Address [address] [place] [address] Care Team Providers Care Financial Aid Officer Name Role Phone Estefany Chou Unavailable [phone] Allergies Allergen (clinical drug ingredient) Drug/Non Drug [...] 02/01/2025 Encounters Encounter Location Date Provider Diagnosis [facility]- [address] [address] 02/01/2025 Estefany Chou Encounter for gynecological examination [...] F/U Provider Name:Estefany Chou, 05/29/2025 11:00:00 AM, [facility] [address], [address], [address], Provider Name:Estefany Chou, 02/03/2026 10:15:00 AM, [address], [place], [address], History and Physical Notes * [...] skin changes, no axillary or supraclavicular adenopathy Reservations And Ticketing Agent Reservations And Ticketing Agent Status Reservations And Ticketing Agent prese nt during physical exam. Name: Kirstie López Title: JTAC Progress Notes * Candace BRYANT PDOB:[birth year] (74 yo F)Acc No.[id number]:02/01/2025 Progress Note Patient: Candace VERA Provider: Duane Chou MD :1950 A ge:74 Y S ex:Female Date:02/01/2025 Address:[address] [place] [address], [place], [id number] Subjective: * Chief Complaints: * 1 . [...] d enies. ? 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 * Examination: C haperone: Reservations And Ticketing Agent Status C haperone present during physical exam. Name: Kirstie López Title: JTAC. G eneral Examination: GENERAL APPEARANCE: p leasant, [...] Date: 02/01/2025 Generated for Nayan urbina/Octavio/Bryanitting on: 03/01/2025 10:29 AM EDT
--- OUTSIDE RECORDS SUMMARY | 2025-02-18 06:00 | XMS_ITS ---
Author Organization [facility] Address [address] [place] [address] Care Team Providers Care Package Sealer Name Role Phone Estefany Chou Unavailable [phone] Allergies Allergen (clinical drug ingredient) Drug/Non Drug [...] Diagnosis 1 Breast pain (N64.4) Referral Organization [facility]-NR Referring Provider First Name Estefany Referring [...] 02/18/2025 Encounters Encounter Location Date Provider Diagnosis [facility] [address] [place] [address] 02/18/2025 Estefany José Antonio Breast pain N64.4 [...] Chou, 05/29/2025 11:00:00 AM, [address], [place], [address], Provider Name:Estefany José Antonio, 02/03/2026 10:15:00 AM, [address], [place], [address], History and Physical Notes * HPI (History [...] Candace BRYANT PDOB:[birth year] (74 yo F)Acc No.[id number]:02/18/2025 Progress Note Patient: Asia riddleCandace dickson Provider: Duane Chou MD :1950 A ge:74 Y S ex:Female Date:02/18/2025 Address:[address] [place] [address] [address] [id number] Subjective: * Chief Complaints: * 1 . [...] high risk MRI. 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 * Sign off status: Completed Visit Status: C HK (Check Out) true * Provider: Duane Chou MD Date: 0 02/18/2025 Generated for Nayan urbina/Octavio/Bryanitting on: 0 03/01/2025 10:30 AM EDT
[2025-03-01 10:27] VITALS: BP 140/64; PULSE 85; O2SAT 95
[2025-03-01 10:29] VITALS: BP 140/64; PULSE 80; RESP 18; TEMP 36.8; O2SAT 96; BMI 24.2
--- OUTSIDE RECORDS SUMMARY | 2025-03-01 10:29 | XMS_ITS | Encounter Summary ---
Author Organization [facility] ([place], [place], [place], [place]) Address [address] [place] [address] Care Team Providers Care Technical Project Manager Name Role Phone Unavailable Primary Care Provider Unavailabl e Reason for Referral * Consultation (Routine) - Authorized Specialty Diagnoses / Procedures Referred By Contac t Referred To Contact Neurology Diagnoses Memory loss Graham Jose MD [address] [facility] [address] [place] [address] Phone: tel: fax: Ke Campbell MD [facility] [address] [place] [address] Phone: tel: fax: Referral ID Status Reason Start Date Expiration Date Visits Requested Visits Authorized [id number] Authorized Specialty Services Required 02/05/2025 02/05/2026 1 1 Encounter Details Date Type Department Care Team (Late st Contact Info) Description 02/05/2025 Outside Orders [facility] - [facility] [address] [facility] [address] [place] [address] Graham Jose MD [address] [facility] [address] [place] [address] Memory loss (Primary Dx) 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 Tobacco Use Types Packs/Day Years Used Date Smoking Tobacco: Never Smokeless Tobacco: Never Alcohol Use Standard Drinks/Week Comments Yes 0 (1 standard drink = 0.6 oz pur e alcohol) occasional Family and Community Support Answer Sushant e Recorded Help with Day to Day Activities Not on file 11/08/2023 Feeling Lonely or Isolated Not on file 11/07 Educational Attainment Answer Date Clifford rded Speak language other than Swiss at home Not on file 11/08/2023 Want help with school or training Not on file 11/08/2023 Substance Use Answer Date Recorded Used prescription meds for non-medical reasons N ot on file 11/08/2023 Used illegal drugs past 12 months Not on file 11/08/2023 Comments No Sex and Gender Information Value Date Recorded Sex Assigned at Not on file Legal Sex Female 10:45 AM CDT Gender Identity Not on file Sexual Orientation Not on file documented as of this encounter Plan of Treatment Upcoming Encounters Date Type Department Care Team (Late st Contact Info) Description 03/05/2025 1:45 PM EDT Office Visit [facility] [place] [id number] [facility] [address] [id number] Ke Campbell MD [facility] [address] [place] [address] Scheduled Referrals Name Type Priority Associated Diagnoses Order Schedule Ambulatory referral to Neurology Outpatient Referral Routine Memory loss Ordered: 02/05/2025 documented as of this encounter Visit Diagnoses Diagnosis Memory loss- Primary documented in this encounter
--- OUTSIDE RECORDS SUMMARY | 2025-03-01 10:29 | XMS_ITS | Clinical Summary ---
Author Organization [facility] ([place], [place], [place], [place]) Address [address] [place] [address] Care Team Providers Care Tire Repairer Name Role Phone Unavailable Primary Care Provider Unavailabl e Allergies Active Allergy Reactions Criticality Noted Date Comments Ciprofloxacin Hcl Other (See Comments) 11/15/2023 Extreme abdominal pian Codeine Rash Low 11/15/2023 Nsaids (Non-Steroidal Anti-Inflammatory Drug) Other (See Comments) 11/15/2023 Bleeding ulcers Sulfa (Sulfonamide Antibiotics) Swelling High 11/15/2023 Topiramate Rash High 11/15/2023 Lasts days Vancomycin Rash High 11/15/2023 extreme rash for days Medications azelastine (ASTELIN) 137 mcg (0.1 %) nasal spray 1 spray by Nasal route as needed. 4 Active Trulicity 3 mg/0.5 mL syringe Inject 0.5 mLs (3 mg total) subcutaneously once a week. 4 Active eletriptan (RELPAX) 20 MG tablet Take 1 tablet (20 mg total) by mouth as needed. 4 Active hydroCHLOROthi azide (HYDRODIURIL) 12.5 MG tablet Take 1 tablet (12.5 mg total) by mouth daily. 4 Active lansoprazole (PREVACID) 30 MG capsule Take 1 capsule (30 mg total) by mouth daily. 4 Active losartan (COZAAR) 50 MG tablet Take 1 tablet (50 mg total) by mouth 2 (two) times daily. 4 Active nortriptyline (PAMELOR) 10 MG capsule Take 5 capsules (50 mg total) by mouth nightly. 4 Active propranoloL (INDERAL LA) 80 MG 24 hr capsule Take 1 capsule (80 mg total) by mouth daily. 4 Active Basaglar KwikPen U-100 Insulin 100 unit/mL (3 mL) InPn Inject 75 Units subcutaneously nightly. 4 Active folic acid (FOLVITE) 400 MCG tablet Take 1 tablet (400 mcg total) by mouth daily. Active Missing or Non-Formulary Medication 2 fluid ounces by Nasal route as needed Felix's Solution-nasal lavage. Active cyanocobalamin (VITAMIN B-12) 2000 MCG ER tablet Take 1 tablet (2,000 mcg total) by mouth daily. Active cholecalcifero l, vitamin D3, 50 mcg (2,000 unit) Cap Take 1 capsule (2,000 Units total) by mouth daily. Active acetaminophen (TYLENOL) 500 MG tablet Take 2 tablets (1,000 mg total) by mouth every 6 (six) hours as needed for Pain. Active neomycin (MYCIFRADIN) 500 mg tablet Take 2 tablets (1,000 mg total) by mouth 3 (three) times daily. 4 Active metroNIDAZOLE (FLAGYL) 500 MG tablet Take 1 tablet (500 mg total) by mouth 3 (three) times daily. 4 Active Active Problems Problem Noted Date Diagnosed Date Essential hypertension 11/21/2021 Supraventricular tachycardia 11/21/2021 Degenerative joint disease of hand 09/30/2019 11/18/2023 Calculus of gallbladder with out cholecystitis without obstruction 02/06/2019 11/18/2023 Diabetes 02/06/2019 11/18/2023 Gastro-esophageal reflux disease without esophag itis 02/06/2019 11/18/2023 Malignant neoplasm of lower- outer quadrant of right breast of female, estrogen receptor positive 05/30/2017 11/18/2023 Eczema 12/23/2015 11/18/2023 Overview (11/18/2023): From Automated Load;Provider: Mery Isaacs;Status: Active Idiopathic osteoarthritis 07/14/20152023 Overview (11/18/2023): From Automated Load;Provider: Low Peter;Status: Active Obstructive sleep apnea syndrome 06/26/2015 11/18/2023 Overview (11/18/2023): From Automated Load;Provider: Valarie Fields;Status: Active LUKE positive 05/13/2015 11/18/2023 SOB (shortness of breath) 05/13/20152023 Encounters Date Type Department Care Team Description 02/05/2025 Outside Orders [facility] Neurology - [address] [place] [address] Graham Jose MD Memory loss (Primary Dx) from Last 3 Months 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 Tobacco Use Types Packs/Day Years Used Date Smoking Tobacco: Never Smokeless Tobacco: Never Tobacco Cessation:Counseling Given: Not Answered Alcohol Use Standard Drinks/Week Comments Yes 0 (1 standard drink = 0.6 oz pur e alcohol) occasional Family and Community Support Answer Sushant e Recorded Help with Day to Day Activities Not on file 11/08/2023 Feeling Lonely or Isolated Not on file 11/07 Educational Attainment Answer Date Clifford rded Speak language other than Egyptian at home Not on file 11/08/2023 Want [...] on file Sexual Orientation Not on file Last Filed Vital Signs Vital Sign Reading Time Taken Comments Blood Pressure 122/58 11/25/2023 10:05 AM EDT Pulse 64 11/25/2023 10:05 AM EDT Temperature 36.6 C (97.8 F) 11/25/2023 10:05 AM EDT Respiratory Rate 20 11/25/2023 10:05 AM EDT Oxygen Saturation 92% 11/25/2023 10:05 AM EDT Inhaled Oxygen Concentration - - Weight 75.3 kg (166 lb) 11/25/2023 6:16 AM EDT Height 175.3 cm (5' 9 ) 11/18/2023 11:44 AM EDT Body Mass Index 24.51 11/18/2023 11:44 AM EDT Plan of Treatment Upcoming Encounters Date Type Department Care Team (Late st Contact Info) Description 03/05/2025 1:45 PM EDT Office Visit [facility] Neurology - [address] [place] [address] Ke Campbell MD [address] [place], [place] [id number] Health Maintenance Due Date Last Done Comments DXA SCAN 1950 Diabetic Kidney Health Evalu ation (KED) 1950 Diabetic Eye Exam 1958 Depression Screening (12+) 1960 Hepatitis C Screening 1966 DTAP/TDAP/TD VACCINES (1 - Tdap) 1967 Pneumococcal 50+ years (1 of 2 - PCV) 1967 Medicare Initial AWV G0438 04/30/2014 Respiratory Syncytial Virus (RSV) Adult or (1 - 1-dose 75+ series) 2023 Hemoglobin A1C 11/18/2023 COVID-19 VACCINE (5 - 2023-2 5 season) 2024 10/07/2023, 06/10/2021, 10/21/2020, Additional history exists Falls Risk Screening 08/29/2024 Tobacco Cessation Counseling and Screening (12+) 11/24/2024 11/25/2023 Influenza Vaccine (#1) 2025 4, 06/10/2023, 07/13/2022, Additional history exists Shingles Vaccine (Zoster) Completed 2020, 07/31/2020, 01/07/2016 Breast Cancer Screening Discontinued 10/13/19 24, 09/03/2022, 06/24/2022, Additional history exists Insurance [place] [address] [place] [address] MCR SUPP [facility] CLAIMS
--- OUTSIDE RECORDS SUMMARY | 2025-03-01 10:29 | XMS_ITS | Patient Health Record ---
Author Organization [facility] Address [address] [place] [address] Care Team Providers Care Foam Dispenser Name Role Phone Estefany Chou Unavailable [phone] Allergies Allergen (clinical drug ingredient) Drug/Non Drug [...] Vancomycin HCl rash Drug Allergy A ctive Results Component Value Reference Range Notes MAMMO DIAGNOSTIC DIGITAL AZALEA OSYNTHESIS BILATERAL W CAD Reviewed date:02/28/2025 08:57:42 AM Interpretation:BIRAD 2 Benign, follow up in one year Performing Lab: Notes/Report: BILATERAL DIAGNOSTIC MAMMOGRAM WITH TOMOSYNTHESIS AND A FOCUSED RIGHT BREAST ULTRASOUND CLINICAL INDICATION: 74-year-old patient presents for evaluation of focal pain involving the 9:00 distribution of her right breast and right axillary region. The patient is status post previous right breast lumpectomy as well as multiple benign right breast core biopsy revealing areas of fat necrosis. TECHNIQUE: Low dose full field digital breast tomosynthesis imaging was performed consisting of bilateral CC and MLO views. In addition, focused ultrasound imaging of the right breast was performed. COMPARISON: 04/06/2024, 10/13/2023, 08/05/2023, 04/05/2023, 09/03/2022, 06/24/2022, 03/25/2022 FINDINGS: There are scattered areas of fibroglandular density. The fibroglandular pattern appears stable bilaterally. The asymmetry/architectural distortion associated with the right upper outer quadrant lumpectomy bed is not significantly changed. Multiple core biopsy marking clips are noted in association with this tissue. There is also loosely grouped coarse calcifications present in the more posterior central breast which would be consistent with areas of fat necrosis. No spiculated masses or suspicious calcifications are seen on either side. Focused ultrasound imaging of the right breast targeted to the area of pain was performed. In this region, no solid or cystic masses are identified. No abnormal areas of shadowing are seen. No axillary abnormality is identified. Stable mammographic appearance of both breast including post surgical/biopsy changes on the right. No new or suspicious finding is seen on either side. In particular, no new focal mammographic abnormality seen in the posterior upper outer quadrant. Focused ultrasound imaging of the right breast targeted to the area of pain shows no focal sonographic malady. RECOMMENDATION: Recommend clinical follow-up of the right breast. Otherwise recommend the patient continue with annual follow-up mammography. This can be done as either a screening study or diagnostic exam given the patient's personal history of breast cancer. ACR BI-RADS CATEGORY: 2, BENIGN CAD was utilized. The standard false-negative rate of mammography is between 10% and 25%. Complex patterns or increased breast density will markedly elevate the false-negative rate of mammography. A letter, in lay terminology, with the results of this exam was given to the patient at the time of the visit. At our facility, a triangular marker is positioned over a palpable area of concern indicated by the patient. A [place] marker is placed over a visible skin lesion. A linear marker indicates a scar. 02/27/2025 3:[address] Kaycee Peña MD on Signed by: Kaycee Peña MD on 02/27/2025 3:34 PM Right breast pian 900-1000 lateral edge of breast and right axilla pain Reason for Exam:->BREAST PAIN Reason For Referral Reason Dx BIlateral MMG- U/ S if needed right breast pain at the right lateral edge breast pain 9-10:00 and right inner axilla pain Diagnosis 1 Breast pain (N64.4) Referral Organization [facility] Referring Provider First Name Estefany Referring Provider Last Name José Antonio Referring Provider Speciality OB - Gynec ology Referral Priority Routine Referral Appointment Date 02/27/2025 Medications Medication SIG (Take, Route, Frequency, Duration) Notes Start Date End Date Status RABEprazole Sodium A ctive Basaglar KwikPen Act ameena Anastrozole 1 MG Tablet 1 tablet Orally Once a day Not-Taking/PRN Citrucel Active Toujeo SoloStar Not- Taking/PRN Folic Acid Active Inderal LA 80 MG Capsule Extended Release 24 Hour 1 capsule Orally Once a day Active Losartan Potassium 50 MG Tablet 1 tablet Orally Once a day Active MiraLax Active Nortriptyline HCl Ac tive Relpax Active Trulicity Active Vitamin B12 Active Vitamin D Active 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 Tobacco Use: 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 [...] Notes Tobacco Use/Smoking Are you a nonsmoker Problems Problem Type SNOMED Code ICD Code Onset Dates Problem Status W/U Status Risk Notes Problem Personal history of primary malignant neoplasm of breast (152917131) Personal history of breast cancer (Z85.3) Active confirmed Problem Gynecological examination normal (109136368505694 ) Cervical smear, as part of routine gynecological examination (Z01.419) 09/19/19 21 Active confirmed Annual without abnormal findings Vital Signs Blood pressure diastolic 64 mm Hg 02/18/2025 Height 67 in 02/18/2025 Blood pressure systolic 122 mm Hg 02/18/2025 Weight 166 lbs 02/18/2025 BMI 26 kg/m2 02/18/2025 Encounters Encounter Location Date Provider Diagnosis [facility] [address] [place] [address] 02/01/2025 Estefany Chou Encounter for gynecological examination with abnormal finding Z01.411 ; Breast pain N64.4 and Vulvar lesion N90.89 [facility] [address] [facility] [address] [place] [address] 02/18/2025 Estefany Chou Breast pain N64.4 ; Pain in right axilla M79.621 and Personal history of breast cancer Z85.3 Assessments Encounter Date Diagnosis (ICD Code) Assessment Notes Treatment Notes Treatment Clinical Notes Section Notes 02/01/2025 Breast pain (ICD-10 - N64.4) F/U breast exam in 2 weeks. 02/01/2025 Encounter for gynecological examination with abnormal finding (ICD-10 - Z01.411) 02/18/2025 Breast pain (ICD-10 - N64.4) 02/18/2025 Pain in right axilla (ICD-10 - M79.621) 02/18/2025 Personal history of breast cancer (ICD-10 - Z85.3) 02/01/2025 Vulvar lesion (ICD-10 - N90.89) F/U in 2 weeks and no further squeezing attempts of the lesions by the patient. Plan Of Treatment Next Appt Details Provider Name:Estefany Chou, 05/29/2025 11:00:00 AM, [address], [address], Provider Name:Estefany Chou, 02/03/2026 10:15:00 AM, [facility] [address], [address], Insurance Providers Payer Name Payer Address Payer Phone Subscriber Number Group Number Insured Name Patient Relationship to Insured Coverage Start Date Coverage End Date [place] [address] [place] [address] [id number] Candace Bryant Self - patient is the insured [facility] [address] [place] [id number] Candace Bryant Self - patient is the insured Medical (General) History Medical History History ICD Code diabetes migraines fibromyalgia joint pain breast cancer [place] disease htn ibs AV Block tendonosis Tam's esophagus fractured left lower extremity squamous cell cancer shoulder Surgical History Surgery Date(Month/Year) breast bx x 6; tubal D&C, ri ght foot neuroma, right knee surgery, right shoulder surgery x 2; tonsilectomy, left elbow surgery x2 8 hand surgeries foot surgery for fibromotosis liliya fundoplication right breast lumpectomy breast biopsy right fat necrosis breast biopsy right 09-23-2022 Appendectomy precancerous polyp excision of squamous cell cancer shoulde r Hospitalization History Reason Date(Month/Year) liliya fundoplication C diff
--- OUTSIDE RECORDS SUMMARY | 2025-03-01 10:29 | XMS_ITS | Clinical Summary ---
Author Organization [facility] Address [address] [place] [address] Phone Care Team Providers Care Audio Visual Manager Name Role Phone Faisal HANKS, Espinoza Gilbert [phone] Conditions or Problems Problem Name Problem Code Onset Date Status Entry Date Provider Comment Standard Description Annotate Thrombophlebi tis 40982534 (SNOMED CT) 02/09 Active 02/09 Espinoza Malone MD. 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 CEFDINIR 300 MG CAPS one cap po bid 02/23 CEFDINIR [id number] Espinoza Malone MD. CEFTRIAXONE SODIUM 2 GM SOLR 2 gms IV Q 24 hrs/OPAT 01/26 CEFTRIAXONE SODIUM 76265763276 Karime Ramey RN CEFDINIR 300 MG CAPS one cap po bid 02/09 CEFDINIR [id number] Espinoza Malone MD. NORTRIPTYLINE HCL 50 MG CAPS take 1 capsule every night NORTRIPTYLINE HCL 49291005855 Yoselin Mclain NORTRIPTYLINE HCL 50 MG CAPS take 1 capsule every night 11/27 NORTRIPTYLINE HCL 17680581387 Yoselin Mclain NYSTATIN 220726 UNIT/ML SUSP 5 mL swish and swallow 4 times daily 01/01 NYSTATIN 46102320891 Espinoza Malone MD. CEFTRIAXONE SODIUM 2 GM SOLR 2 gms IV Q 24 hrs/OPAT 01/26 CEFTRIAXONE SODIUM 11386486762 Renay Hood RN BUDESONIDE 0.5 MG/2ML SUSP Inhale 2 puffs twice daily BUDESONIDE 30002019820 Valarie S GENTAMICIN SULFATE SOLN Irrigate bilateral nares daily GENTAMICIN SULFATE SOLN 15438023369 Valarie S NORTRIPTYLINE HCL 10 MG CAPS take 1 capsule daily 12/15 NORTRIPTYLINE HCL 51189862003 Valarie S VITAMIN D3 25 MCG (1000 UT) CAPS take 1 capsule daily CHOLECALCIFEROL 12186456926 Kaveh Pelaez ROZEREM 8 MG TABS take 1 tablet every night RAMELTEON 43588979670 Kaveh Pelaez RELPAX 20 MG TABS take 1 tablet b.i.d. ELETRIPTAN HYDROBROMIDE 02069774576 Kaveh Pelaez PROPRANOLOL HCL ER 80 MG [id number] take 1 capsule daily PROPRANOLOL HCL 24907704263 Kaveh Pelaez NORTRIPTYLINE HCL 50 MG CAPS take 1 capsule every night 0 11/27 NORTRIPTYLINE HCL 14775865796 Kaveh Pelaez NORTRIPTYLINE HCL 10 MG CAPS take 1 capsule daily 12/15 NORTRIPTYLINE HCL 09247666037 Kaveh Pelaez NEXIUM 24HR 20 MG TBEC take 1 tablet nightly ESOMEPRAZOLE MAGNESIUM 09531421046 Kaveh Pelaez MUPIROCIN 2 % OINT swab inside the nose b.i.d. MUPIROCIN 28326817404 Kaveh Pelaez METFORMIN HCL 1000 MG TABS take 1 tablet b.i.d. METFORMIN HCL 07422472589 Kaveh Pelaez GENTAMICIN SULFATE 40 MG/ML SOLN inject daily as directed 02/26 GENTAMICIN SULFATE 99231208938 Kaveh Pelaez ESOMEPRAZOLE MAGNESIUM 40 MG CPDR ESOMEPRAZOLE MAGNESIUM 44869041272 Kaveh Pelaez DYMISTA 137-50 MCG/ACT SUSP 1 spray to each nostril b.i.d. AZELASTINE-FLUTIC ASONE 11988615857 Kaveh Pelaez Medications Administered No information available. Allergies, Adverse Reactions, Alerts Allergy Name Reaction Description Start Date Severity Statu s Provider MEDROL Unknown No Longer Active Am leslee S NSAIDS Critical Active Valarie S VERSED Critical Active Valarie S SULFA Critical Active Valarie S MIDAZOLAM HCL Moderate Active Kaveh Pelaze VANCOMYCIN HCL Moderate Active Cora e M BACTRIM Moderate Active Kaveh Pelaez REGLAN Moderate Active Kaveh Pelaez PREDNISONE Moderate Active Kaveh Pelaez MEDROL rash Moderate No Longer Active [facility] Latanya LORTAB nausea Moderate Active Kaveh Pelaez GABAPENTIN rash Moderate Active Kaveh Pelaez CYMBALTA Moderate Active Kaveh Pleaez ALEVE ulcers Severe Active Kaveh Pelaez CODEINE SULFATE Moderate Active Lyndon adair M CLINDAMYCIN HCL nausea Moderate Active Lyndon Pelaez BIAXIN drug interaction wit h Relpax Severe Active Kaveh Pelaez Results Date Name Value Unit Range Flag Description Lab Report: CBC WITH AUTO DI FFERENTIAL LYMPHOCY BF 36.1 % 24.0-44.0 lymphoc ytes as percent of body fluid leukocytes Chart Maintenance CRPCARDRISK 0.59 mg/L C reactiv e protein [Mass/volume] in Serum or Plasma Lab Report: CBC WITH AUTO DI FFERENTIAL IMMATUREGRAN 0.00 10*3/MM3 0.00-0.03 Immature granulocytes [#/volume] in Blood BASO# 0.00 10*3/mm3 0.00-0.20 Basophils [#/vol ume] in Blood EOS ABSLT 0.19 10*3/uL 0.10-0.30 Eosinophi ls [#/volume] in Blood MONOSCT AUTO 0.33 10*3/uL 0.00-1.00 Monocy gregory [#/volume] in Blood by Automated count LYMPHCT AUTO 1.43 10*3/mm3 0.60-4.80 Lymph ocytes [#/volume] in Blood by Automated count ABS NEUTROPH 2.95 10*3/uL 1.50-8.30 Neutro phils [#/volume] in Blood IMM GRANU % 0.0 % 0.0-0.6 Immature granulocytes/100 leukocytes in Blood [id number] 0.0 % 0.0-1.0 GE use only - for [employer] import when terms are not otherwise specified % EOS AUTO 3.9 % 0.0-3.0 H Eosinophil s/100 leukocytes in Blood by Automated count MONOCYTE % 6.7 % 0.0-12.0 Monocytes /100 leukocytes in Blood by Automated count LYMPHS % 29.2 % 24.0-44.0 Lymphocyte s/100 leukocytes in Blood by Automated count PMN % 60.2 % 41.0-71.0 Neutrophils /100 leukocytes in Blood by Automated count PLATELETS 149 10*3/mm3 150-450 L Platelets [#/volume] in Blood by Automated count RDW 12.3 % 11.3-14.5 Erythrocyte distribution width [Ratio] by Automated count MCHC 32.5 G/DL 32.0-36.0 MCHC [Mass/ volume] by Automated count MCH 30.4 pg 27.0-31.0 MCH [Entiti c mass] by Automated count MCV 93.4 fL 80.0-99.0 MCV [Entiti c volume] by Automated count HCT 45.2 % 34.5-44.0 H Hematocrit [Volume Fraction] of Blood by Automated count HGB 14.7 g/dL 11.5-15.5 Hemoglobin [Mass/volume] in Blood RBC 4.84 10*6/mm3 3.89-5.14 Erythrocyt es [#/volume] in Blood by Automated count WBC 4.90 10*3/mm3 3.50-10.8 0 Leukocytes [#/volume] in Blood by Automated count Lab Report: SEDIMENTATION RA TE ESR 2 mm/h 0-30 Erythrocyte sedimentation rate by Westergren method Lab Report: C-REACTIVE PROTE IN CRP 0.33 mg/dL 0.00-1.00 C reactive protein [Mass/volume] in Serum or Plasma Lab Report: COMPREHENSIVE WV TABOLIC PANEL ANIONGAP 3.0 mmol/L 3.0-11.0 anion gap, serum BUN/CREAT 10.0 7.0-25.0 Urea nitrogen/Creatinine [Mass Ratio] in Serum or Plasma GFRC 62 mL/min/1. 73m2 >60 Glomerular Filtration Rate Calculation BILI TOTAL 0.3 mg/dL 0.3-1.2 Bilirubin. total [Mass/volume] in Serum or Plasma ALK PHOS 63 U/L 25-[address] sphatase [Enzymatic activity/volume] in Blood SGOT (AST) 34 U/L 0-33 H Aspartate aminotransferase [Enzymatic activity/volume] in Serum or Plasma SGPT (ALT) 46 U/L 7-40 H Alanine aminotransferase [Enzymatic activity/volume] in Serum or Plasma ALBUMIN 4.20 g/dL 3.20-4.80 Albumin [Mass/volume] in Serum or Plasma PROTEIN, TOT 6.6 g/dL 5.7-8.2 Protein [Mass/volume] in Serum or Plasma CALCIUM 9.8 mg/dL 8.7-10.4 Calcium [Moles/volume] in Serum or Plasma CO2 34.0 mmol/L 20.0-31.0 H Carbon diox saurabh, total [Moles/volume] in Venous blood CHLORIDE 103 mmol/L 99-109 Chloride [Moles/volume] in Serum or Plasma POTASSIUM 4.8 mmol/L 3.5-5.5 Potassium [Moles/volume] in Serum or Plasma SODIUM 140 mmol/L 132-146 Sodium [Moles/volume] in Serum or Plasma CREATININE 0.90 mg/dL 0.60-1.30 Creatini ne [Mass/volume] in Serum or Plasma BUN 9 mg/dL 9-23 Urea nitrogen [Mass/volume] in Serum or Plasma GLUCOSE SER 276 mg/dL 70-100 H Glucose [Mass/volume] in Serum or Plasma Office Visit: RM 1 MEDS REVIEW Done Documenta tion of current medications (procedure) DIET GUIDE CRUISE yes Dietary management education, guidance, and counseling (procedure) ALCOHOLCOUNS no Alcoholi sm counseling (procedure) ORALTOBACUSE Never Tobacco smoking status SMOK STATUS Never smoker Tobacco smoking status Plan of Care Type Date Detail Pending order Continue oral an tibiotics Pending order Change oral anti biotics Pending order New Oral Antibio tic Pending order Discontinue IV a ntibiotics Pending order PICC Removal Pending order Weekly Labs (Con tinue) Pending order Weekly PICC Line Care Pending order Continue IV anti biotics Pending order Continue IV anti biotics Pending order Weekly Labs (Con tinue) Pending order Weekly PICC Line Care Pending order Ceftriaxone Pending order Weekly PICC Line Care Pending order Weekly Labs (Con tinue) Pending order Continue IV anti biotics Pending order Ceftriaxone Pending order Continue IV anti biotics Pending order Weekly PICC Line Care Pending order Weekly Labs (Con tinue) Pending order Ceftazidime Pending order Stat Weekly Labs Pending order CBC with Differe ntial Pending order CMP Pending order C- reactive prot ein Pending order Sedimentation Ra te (ESR) Pending order Continue IV anti biotics Pending order Weekly PICC Line Care Pending order Ceftriaxone Pending order New IV antibioti c Pending order PICC Line Insert ion Pending order Ceftriaxone Pending order CBC with Differe ntial Pending order Sedimentation Ra te (ESR) Pending order C- reactive prot ein Pending order CMP Pending order Weekly Labs (Con tinue) Pending order Weekly PICC Line Care Pending order Stat Weekly Labs Pending order Hepatitis C Atb: (ICD 10 Code: Z11.59) Procedures Code Procedure Name Date Entry Date CPT-cwl Weekly Labs (Continue) 01/19 CPT-wpc Weekly PICC Line Care 01/19 CPT-ca Continue IV antibiotics 2016 CPT-ca Continue IV antibiotics 2016 CPT-cwl Weekly Labs (Continue) 01/12 CPT-wpc Weekly PICC Line Care 17 CPT-J0696 Ceftriaxone CPT-wpc Weekly PICC Line Care 01/05 CPT-cwl Weekly Labs (Continue) 01/05 CPT-ca Continue IV antibiotics 2016 CPT-J0696 Ceftriaxone CPT-ca Continue IV antibiotics 2016 CPT-wpc Weekly PICC Line Care 12/29 CPT-cwl Weekly Labs (Continue) 12/29 CPT-J0713 Ceftazidime CPT- stat weekly Stat Weekly Labs [id number] CBC with Differential 2016 CPT-73204 CMP CPT-24774 C- reactive protein CPT-27524 Sedimentation Rate (ESR) 201 03/01/26 CPT-ca Continue IV antibiotics 2016 CPT-wpc Weekly PICC Line Care 12/22 CPT-J0696 Ceftriaxone CPT-indio New IV antibiotic CPT-83286 PICC Line Insertion CPT-J0696 Ceftriaxone [id number] CBC with Differential 2016 CPT-45191 Sedimentation Rate (ESR) 201 03/01/19 CPT-63377 C- reactive protein CPT-08176 CMP CPT-cwl Weekly Labs (Continue) 12/15 CPT-wpc Weekly PICC Line Care 12/15 CPT- stat weekly Stat Weekly Labs 78668 Hepatitis C Atb: (ICD 10 Code: Z11.59) 20 13/12/17 Vital Signs Date Name Value Unit Description BMI (Body Mass Index) 25.63 kg/m2 Bod y Mass Index (Ratio) Body Temperature 97.8 [degF] temperat ure E&M BP Diastolic 64 mm[Hg] blood pressu re, diastolic BP Systolic 122 mm[Hg] blood pressur e, systolic Heart Rate 66 /min pulse rate Respiratory Rate 14 /min respirat ory rate E&M Weight Measured 173.6 [lb_av] weight E& M Weight Measured 173.6 [lb_av] weight E& M Height 69 [in_us] height E&M Immunizations No information available. Advance Directives Directive Description Start Date HEALTH CARE SURROGATE NOT ON FILE 12/15 POWER OF FASHION ARTIST LIVING WILL NOT ON FILE
--- OUTSIDE RECORDS SUMMARY | 2025-03-01 10:29 | XMS_ITS | Clinical Summary ---
Author Organization [facility] Address [address] [place] [address] Care Team Providers Care Automobile Salesman Name Role Phone Graham Jose MD Primary Care Provider [phone] Source Comments This information has been disclosed to you from confidential records protectedfrom disclosure by state law. You shall make no further disclosure of thisinformation without the specific, written, and informed release of theindividual to whom it pertains, or as otherwise permitted by law. A generalauthorization for the release of medical or other information is not sufficientfor the purposes of therelease of HIV test results or diagnoses. [id number] Health Allergies Active Allergy Reactions Criticality Noted Date Comments Clindamycin 01/06/2023 Upset stomach Codeine Rash Medium 01/06/2023 Itching Nebivolol Swelling 01/06/2023 palpitations Nsaids (Non-Steroidal Anti-Inflammatory Drug) 01/06/2023 ulcers Pregabalin Swelling Low 01/06/2023 Sulfa (Sulfonamide Antibiotics) Swelling High 12/27 Vancomycin Hives High 01/06/2023 Medications nortriptyline (PAMELOR) 50 MG capsule Take 1 capsule (50 mg total) by mouth at bedtime. Active propranoloL (INDERAL) 80 MG tablet Take 1 tablet (80 mg total) by mouth daily. Active azelastine (ASTELIN) 137 mcg (0.1 %) nasal spray Use 1 spray into each nostril 2 times a day. Use in each nostril as directed Active eletriptan (RELPAX) 20 MG tablet Take 1 tablet (20 mg total) by mouth once as needed for Migraine. may repeat in 2 hours if necessary Active methylcellulos e oral powder Take by mouth daily. Active polyethylene glycol (MIRALAX) 17 gram packet Take 17 g by mouth daily. Active losartan (COZAAR) 50 MG tablet Take 1 tablet (50 mg total) by mouth 2 times a day. Active hydroCHLOROthi azide (MICROZIDE) 12.5 mg capsule Take 1 capsule (12.5 mg total) by mouth daily. Active dulaglutide (TRULICITY) 3 mg/0.5 mL PnIj Inject 3 mg subcutaneously once a week. Active insulin glargine,hum.r ec.anlog (BASAGLAR KWIKPEN U-100 INSULIN SUBQ) Inject 74 mg subcutaneously at bedtime. Active Active Problems Problem Noted Date Diagnosed Date Cholelithiasis 02/06/2019 Diabetes 02/06/2019 Eczema 12/23/2015 Family History Medical History Relation Comments Cancer Father Breast Cancer Maternal Aunt Heart defect Mother Heart failure Mother Clotting disorder Sister Relation Status Comments Father Maternal Aunt Mother Sister 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 Tobacco Use Types Packs/Day Years Used Date Smoking Tobacco: Never Smokeless Tobacco: Never Tobacco Cessation:Counseling Given: Not Answered Alcohol Use Standard Drinks/Week Comments Yes 1 (1 standard drink = 0.6 oz pur e alcohol) Comments Unknown Sex and Gender Information Value Date Recorded Sex Assigned at Not on file Legal Sex Female 2:23 PM EST Gender Identity Not on file Sexual Orientation Not on file Last Filed Vital Signs Vital Sign Reading Time Taken Comments Blood Pressure 133/62 03/21/2023 9:22 AM EDT Pulse 73 03/21/2023 9:22 AM EDT Temperature - - Respiratory Rate - - Oxygen Saturation 98% 03/21/2023 9:22 AM EDT Inhaled Oxygen Concentration 98% 03/21/2023 9 :22 AM EDT Weight 74.4 kg (164 lb) 03/21/2023 9:22 AM EDT Height 175.3 cm (5' 9 ) 03/21/2023 9:22 AM EDT Body Mass Index 24.22 03/21/2023 9:22 AM EDT Plan of Treatment Health Maintenance Due Date Last Done Comments ASCVD Assessment 1950 Renal Function/GFR 1950 Alcohol Misuse Screening 1966 Depression Screening 1966 Immunization: DTaP/Tdap/Td ( 1 - Tdap) 1967 Immunization: Pneumococcal ( 1 of 2 - PCV) 1967 Diabetic Eye Exam (MyChart) 01/06/2023 Urine Albumin/Creatinine Ratio 01/06/2023 Immunization: RSV (Adult) (1 - 1-dose 75+ series) 2023 Hemoglobin A1C Monitoring (MyChart) 07/13/2023 01/10/2023 Immunization: COVID-19 ( season) 2024 06/11/2021, 06/10/2021, 10/21/2020, Additional history exists Immunization: Influenza (MyC tan) (Season Ended) 2025 07/13/2022, 06/28/2021, 04/15/2020, Additional history exists Osteoporosis Screening (DXA Scan) 11/19/2032 11/19/2021, 02/12/2020, 07/07/2017 Immunization: Zoster Completed 12/30/2020, 07/31/2020, 01/07/2016 Procedures Procedure Name Priority Date/Time Associated Diagnosis Comments HEMOGLOBIN A1C Routine 01/10/2023 2:27 PM EDT Other polyneuropathy from Last 3 Months or Most Recently Relevant to Health Maintenance Results * (ABNORMAL) Hemoglobin A1c (01/10/2023 2:27 PM EDT) Hemoglobin A1C 7.7(H) 4.0 - 5.6 % 01/11/2023 4:37 AM EDT [facility] Comment: Hemoglobin A1c Interpretation Guidelines: Normal: <5.7% Prediabetes: 5.7-6.4% Diabetes: >6.4% Diagnosis requires two independent tests unless clinical diagnosis is clear. Some clinical conditions, particularly anemias and hemoglobinopathies, may interfere with the diagnostic accuracy of hemoglobin A1c. The recommended goal for diabetic glycemic control (Hemoglobin A1c <7.0%) should be individualized based on duration of diabetes, age/life expectancy, comorbid conditions, known CVD or advanced microvascular complications, hypoglycemia unawareness, and other individual patient considerations. Whole Blood 01/10/2023 2:27 PM EDT 01/10/2023 3:34 PM EDT us Anjel Ellison MD LAB BLOOD ORDERABLES Final Resul t [facility] [address] [place] [address], [facility] from Last 3 Months or Most Recently Relevant to Health Maintenance Insurance [facility] MEDICARE A AND B Care Teams Automobile Salesman Relationship Specialty Start Date End Date Graham Jose MD [address] [place] [id number] PCP - General Internal Medicine 08/04/22
--- OUTSIDE RECORDS SUMMARY | 2025-03-01 10:29 | XMS_ITS | Referral Summary ---
Author Organization [employer] ([place], [place], [place], [place]) Address [address] [place] [address] Care Team Providers Care Certified Technician Specialist Name Role Phone Unavailable Primary Care Provider Unavailabl e Encounters Date Type Department Care Team Description 02/05/2025 Outside Orders [facility] - [facility] [address] [facility] [address] [place] [address] Graham Jose MD Memory loss (Primary Dx) from Last 3 Months Allergies Active Allergy Reactions Criticality Noted Date [...] total) by mouth 3 (three) times daily. Active metroNIDAZOLE (FLAGYL) 500 MG tablet Take [...] 05/13/2015 11/18/2023 SOB (shortness of breath) 05/13/20152023 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 Tobacco Use Types Packs/Day Years [...] Date Clifford rded Speak language other than Comoran at home Not on file 11/08/2023 Want [...] Description 03/05/2025 1:45 PM EDT Office Visit [facility] - [address] [place] [address] Ke Campbell MD [address] [facility] [address] [place] [address] [place] [phone] MEDICARE PART A B [facility] M[facility] SUPP [facility] HEALTH CLAIMS
[2025-03-01 10:30] VITALS: BP 114/57; PULSE 86; O2SAT 97
--- OUTSIDE RECORDS SUMMARY | 2025-03-01 10:30 | XMS_ITS | Clinical Summary ---
Author Organization [facility] Address [address] [place] [phone] Phone Care Team Providers Care Assurance Assistant Name Role Phone Graham Jose MD Unavailable [phone] Shellie Hodges MD Unavailable [phone] Graham Jose MD Primary Care Provider [phone] Allergies Active Allergy Reactions Criticality Noted Date Comments Nebivolol Swelling,Palpitatio ns High 05/09/2015 Clindamycin Other (See Comments) 12/27/2014 GI upset; abdominal pain Codeine Itching,Rash Medium 12/27/2014 Fentanyl Other (See Comments) 12/27/2014 migraine Nsaids (Non-Steroidal Anti-Inflammatory Drug) Other (See Comments) High 12/27/2014 GI ulcers Metoclopramide Hcl Other (See Comments) 12/27/2014 migraine Sulfa (Sulfonamide Antibiotics) Swelling High 12/27/2014 Vancomycin Hives High 12/27/2014 Medications nortriptyline (PAMELOR) 50 mg Oral Capsule Take 50 mg by mouth nightly. Active propranolol (INDERAL LA) 80 mg Oral Capsule,Sustaine d Action 24 hr Take 80 mg by mouth daily. Active esomeprazole (NEXIUM) 40 mg Oral Capsule, Delayed Release(E.C.) Take by mouth daily. Active azelastine (ASTELIN) 137 mcg Nasl Aerosol, [place] 2 Sprays by Each Nare route 2 times daily. Use in each nostril as directed Active eletriptan (RELPAX) 20 mg Oral Tablet Take 20 mg by mouth once as needed for Migraine. may repeat in 2 hours if necessary Active zolpidem (AMBIEN CR) 12.5 mg Oral Tablet, Multiphasic Release Take 12.5 mg by mouth nightly as needed. Active Methylcellulose, with Sugar, (CITRUCEL) Oral Powder Take by mouth daily. Active polyethylene glycol (GLYCOLAX, MIRALAX) 17 gram Oral Powder in Packet Take 17 g by mouth daily. Active Valerian Root 500 mg Oral Capsule Take by mouth daily. Active ergocalciferol (VITAMIN D) 50,000 unit Oral CapsuleIndicatio ns:Vitamin D deficiency Take 1 Cap by mouth once a week. 12 Cap 0 5 Active Medical History Medical History Date Comments Diabetes mellitus (HCC) Hypertension Anemia Cataract mild right eye Fibromyalgia Peripheral neuropathy Thyroiditis Chronic migraine History of bleeding ulcers 1960 History of stomach ulcers Tachycardia, unspecified 2005 Family History Medical History Relation Name Comments Prostate Cancer Father Breast Cancer Maternal Aunt Heart Defect Mother Heart Failure Mother Clotting Disorder Sister Relation Name Status Comments Brother Alive Father Maternal Aunt Mother Sister Alive 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 Tobacco Use Types Packs/Day Years Used Date Smoking Tobacco: Never Smokeless Tobacco: Never Alcohol Use Standard Drinks/Week Comments Yes 0 (1 standard drink = 0.6 oz pur e alcohol) occasionally Comments No Sex and Gender Information Value Date Recorded Sex Assigned at Not on file Legal Sex Female 10:30 AM EDT Gender Identity Not on file Sexual Orientation Not on file Obstetrics History Last Filed Vital Signs Vital Sign Reading Time Taken Comments Blood Pressure 114/64 05/09/2015 1:04 PM EDT Pulse 84 05/09/2015 1:04 PM EDT Temperature 36.9 C (98.5 F) 12/27/2014 2:08 PM EDT Respiratory Rate 16 05/09/2015 1:04 PM EDT Oxygen Saturation - - Inhaled Oxygen Concentration - - Weight 79.5 kg (175 lb 3.2 oz) 05/09/2015 1:04 P M EDT Height 173.6 cm (5' 8.35 ) 05/09/2015 1:04 PM ED T Body Mass Index 26.37 05/09/2015 1:04 PM EDT Plan of Treatment Health Maintenance Due Date Last Done Comments Annual Wellness Exam 1953 DTaP/TDaP/Td (1 - Tdap) 1967 Pneumococcal Vaccine 50+ (1 of 1 - PCV) 1998 Zoster (1 of 2) 1998 Bone Density Screening 2013 RSV or 60+ (1 - 1-d ose 75+ series) 2023 COVID-19 Vaccine (1 - 2023-2 5 season) 2024 Influenza Vaccine (#1) 2025 Hepatitis C Screening Completed 12/27/2014 Hepatitis B Vaccine Aged Out No longe r eligible based on patient's age to complete this topic Meningococcal B Vaccine Aged Out No l onger eligible based on patient's age to complete this topic Procedures Procedure Name Priority Date/Time Associated Diagnosis Comments HEPATITIS C ANTIBODY IGM + IGG Routine 12/27/2014 3:17 PM EDT Positive LUKE (antinuclear antibody) from Last 3 Months or Most Recently Relevant to Health Maintenance Results * HEPATITIS C ANTIBODY IGM + IGG (12/27/2014 3:17 PM EDT) Hep C Ab Negative Negative [facility] Blood specimen (specimen) 12/27/2014 3:17 PM EDT 12/27/2014 5:56 PM EDT Shellie Hodges MD IMMUNOLOGY ORDERABLES Fin al Result Performing Organization Address City/State/[facility] Co de Phone Number [facility] [address] [place] [address] from Last 3 Months or Most Recently Relevant to Health Maintenance Insurance [employer] PPO MEDICARE PART A HB on file ANTHEM PPO * Guarantor: Candace Bryant Account Type Relation to Patient Date of Phone Billing Address [place] Personal Family Self Care Teams Assurance Assistant Relationship Specialty Start Date End Date Graham Jose MD [address] [place] [phone] PCP - General Internal Medicine-Adolescent Medicine 05/09/15 Graham Jose MD [address] [place] [phone] Internal Medicine-Adolescent Medicine 12/27/14 Shellie Hodges MD [address] [place] [address] Internal Medicine-Rheumatology 12/27/14
--- OUTSIDE RECORDS SUMMARY | 2025-03-01 10:30 | XMS_ITS | Continuity of Care Document ---
Author Organization [facility], CARDIOLOGY [facility] Address [address] [place] [address] Care Team Providers Care Track Repairer Name Role Phone SHOAIB CHAUHAN After School Driver [phone] JERSEY NAVAS Spring Salvage Worker TAYLER SWEENEY OTHER VIKTORIA CORDOVA OTHER YURY CESAR OTHER GRAHAM JEAN Primary Care Provider [phone] SERA NO Breast Surgeon GRAHAM CORONA Urologist VALARIE MEYERS Pre Press Proofer YURY ABRAHAM Work Station Support Specialist [phone] VENKATA MORRIS Welt Insole Channeler LU WRIGHT General Surgeon Assessment No assessment recorded. Plan of Treatment Reminders Order Date Submit Date Provider Last Modified By Organization Details Last Modified Time Details Appointments RECHECK 2024 11:10A M LAUREN GRIFFIN MD Not available Not available Not available ESTABLISH ED PT VISIT 2024 02:45P M LOUISE ROSS PA-C Not available Not available Not available RECHECK 2025 11:45A M VENKATA MORRIS DELICATESSEN CLERK Not available Not available Not available Lab None recorded. Referral None recorded. Procedures None recorded. Surgeries None recorded. Imaging None recorded. Medication Orders None recorded. Patient TargetsNo targets recorded. Patient Instructions Encounter Date Encounter Id Patient Instructions Last Modified By Organization Details Last Modified Time 01/25/2025 [id number] supraventricular tachycardia: care instructions Not available 01/25/2025 15:29:58 high blood press ure: care instructions Not available 01/25/2025 15:29:58 high cholesterol : care instructions Not available 01/25/2025 15:29:58 coronary artery disease: care instructions Not available 01/25/2025 15:29:58 Reason for Referral None Reported. Problems Name Problem SNOMED Code Status Onset Date Resolution Date Notes Provider Name and Address Organization Details Recorded Time Low back pain 934550282 Active 2016 BALA RAHMAN, PT [address] [place], [address] , [facility] 7 12:34:12 Abnormal posture 47090688 Active 2016 BALA RAHMAN, PT [address] [place], [address] , [facility] 7 12:34:14 Muscle weakness 07838871 Active 2016 BALA RAHMAN, PT [address] [place], [address] , [facility] 7 12:34:15 Lumbar spine stiff 883908432 Active 2016 BALA RAHMAN, PT [address] [facility] [place], [address] , [facility] 7 12:34:16 Nasal polyp Active 2015 From Automated Load;Prov ider: Shoaib Chauhan;Sta tus: Active Not Available [facility] 7 06:09:08 Contusion of rib 649542582 Active 2017 BALA RAHMAN, PT [address] [place], [address] , [facility] 8 18:42:00 Stiff back 733125205 Active 2017 BALA RAHMAN, PT [address] [place], [address] , [facility] 8 18:42:01 Rib pain 386997575 Active 2017 BALA RAHMAN, PT [address] [place], [address] , [facility] 8 18:42:03 Infection of sebaceous cyst 306976882 Active 2017 left thigh Lilli sanches, [facility] 8 14:27:30 Osteoarth ritis of joint of hand 34512023 Active 2019 BALA RAHMAN, PT [address] [place], [address] , [facility] 0 19:51:53 Pain in right hand 55154752821 9109 Active 2019 BALA RAHMAN, PT [address] [place], [address] , [facility] 0 19:51:55 Stiffness of joint of right hand 18012548776 9106 Active 2019 BALA RAHMAN, PT [address] [place], [address] , [facility] 0 19:51:57 Contractu re of joint of finger of left hand due to scar 75437376378 657491 Active 2019 BALA RAHMAN, PT [address] [place], [address] , [facility] 0 17:06:15 Thumb joint stiff 236316841 Active 2019 BALA RAHMAN, PT [address] [place], [address] , [facility] 0 17:06:30 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 98449817 Active 2019 BALA RAHMAN, PT [address] [place], [address] , [facility] 0 17:07:01 Pain of right shoulder joint 55400001041 747422 Active 2019 BALA RAHMAN, PT [address] [place], [address] , [facility] 0 18:53:50 Essential hypertens ion 57982005 Active 2021 KAMILAH LOPEZ, DELICATESSEN CLERK [address] [place], [address] , [facility] 2 16:55:28 Type 2 diabetes mellitus 27507861 Active 2021 KAMILAH LOPEZ, DELICATESSEN CLERK [address] [place], [address] , [facility] 2 16:55:41 Palpitati ons 44778277 Active 2021 KAMILAH LOPEZ, DELICATESSEN CLERK [address] [place], [address] , [facility] 2 16:55:59 Supravent ricular tachycard ia 0906906 Active 2021 KAMILAH LOPEZ, DELICATESSEN CLERK [address] [place], [address] , [facility] 2 16:56:26 Tendiniti s of right forearm 60957363512 560148 Active 2022 BALA RAHMAN, PT [address] [place], [address] , [facility] 3 15:01:54 Atrophy of muscle of right shoulder 82108093704 9104 Active 2022 BALA RAHMAN, PT [address] [place], [address] , [facility] 3 15:01:58 Lateral epicondyl itis 194050480 Active 2022 BALA RAHMAN, PT [address] [place], [address] , [facility] 3 19:19:45 Spasm 17175960 Active 2022 BALA RAHMAN, PT [address] [place], [address] , [facility] 3 19:19:50 Melanocyt ic nevus of trunk 969008901 Active 2015 From Automated Load;Prov ider: Mery Isaacs;Frankie chi: Active Not Available [facility] 6 05:16:00 Acute sinusitis 73349628 Active 2015 From Automated Load;Prov ider: Shoaib Chauhan;Sta tus: Active Not Available [facility] 6 05:16:00 Sinusitis 68143930 Active 2015 From Automated Load;Prov ider: Shoaib hCauhan;Sta tus: Active Not Available [facility] 6 05:16:00 Vasomotor rhinitis 1079701 Active 2015 From Automated Load;Prov ider: Shoaib Chauhan;Sta tus: Active Not Available [facility] 6 05:16:00 Hypertrop hy of nasal turbinate s 72230023 Active 2015 From Automated Load;Prov ider: Shoaib Chauhan;Sta tus: Active Not Available [facility] 6 05:16:00 Pain in right knee Active 2014 From Automated Load;Prov ider: Low Peter;St atus: Active Not Available [facility] 6 05:16:00 Dyspnea 165544377 Active 2014 From Automated Load;Prov ider: Valarie Meyers;Sta tus: Active Not Available [facility] 6 05:16:00 Acquired trigger finger 0108590 Active 2014 From Automated Load;Prov ider: Graham Dykes;Frankie tatus: Active Not Available [facility] 6 05:16:00 Idiopathi c osteoarth ritis 784786486 Active 2014 From Automated Load;Prov ider: Low Peter;St atus: Active Not Available [facility] 6 05:16:00 Insomnia 432430691 Active 2015 From Automated Load;Prov ider: Valarie Meyers;Sta tus: Active Not Available [facility] 6 05:16:00 Eczema 63080335 Active 2015 From Automated Load;Prov ider: Mery Isaacs;S tatus: Active Not Available [facility] 6 05:16:01 Senile hyperkera tosis 038135579 Active 2015 From Automated Load;Prov ider: Mery Isaacs;S tatus: Active Not Available [facility] 6 05:16:01 Lentigo Active 2015 From Automated Load;Prov ider: Mery Isaacs;S tatus: Active Not Available [facility] 6 05:16:01 Lateral epicondyl itis 826136109 Active 2014 From Automated Load;Prov ider: Graham Dykes;S tatus: Active Not Available [facility] 6 05:16:01 Obstructi ve sleep apnea syndrome 32204483 Active 2014 From Automated Load;Prov ider: Donnie, Valarie;Sta tus: Active Not Available [facility] 6 05:16:01 Problem Notes None recorded. Procedures Surgical History Date Name Laterality Status Provider Name and Address Organization Details Recorded Time 025 Destruction [place] Lesion; trunk, arm, leg completed Steph Washington [facility] 01/30/2025 15:00:42 025 Biopsy Skin Lesion; Tangential completed LOUISE ROSS PA-C [address] [place] [address], [address], [facility] 02/03/2025 19:43:10 025 Endoscopy Nasal; Diagnostic completed LAUREN GRIFFIN MD [address] [place] [address], [address], [facility] 12/28/2024 14:10:00 025 Endoscopy Nasal; Biospy, Polypectomy or Debridement completed Laila Bhatia [facility] 11/27/2024 15:18:30 024 Stress Test - Nuclear completed YURY MORELAND MD [address] [place] [address], [address], [facility] 08/09/2024 16:32:59 024 Biopsy Skin Lesion; Tangential completed Fernanda Matute [facility] 08/01/2024 15:29:33 024 EKG completed VENKATA MORRIS, DELICATESSEN CLERK [address] [place], [address], [facility] 07/06/2024 11:30:16 024 Synvisc One Injection completed Diana Maldonado [facility] 06/05/2024 11:20:07 024 Destruction Premalignant Lesion(s) completed Andreina Muse [facility] 01/30/2024 15:37:40 024 Synvisc One Injection completed Diana Maldonado [facility] 09/20/2023 15:05:25 024 Laryngoscopy Flex completed Vincent De La Rosa [facility] 09/08/2023 14:40:07 023 Destruction Premalignant Lesion(s) completed Andreina Muse [facility] 07/11/2023 14:11:59 023 Diffusion Capacity completed VALARIE MEYERS PA-C [address] [place], [address], [facility] 04/26/2023 16:53:09 023 Lung Volumes, Plethysmography completed VALARIE MEYERS PA-C [address] [place], [address], [facility] 04/26/2023 16:53:12 023 Spirometry completed VALARIE MEYERS PA-C [address] [place], [address], [facility] 04/26/2023 16:53:16 023 Tympanogram completed TAMIR PHAM AUD [address] [place], [address], [facility] 02/11/2023 09:56:33 023 Audiogram completed TAMIR PHAM, AUD [address] [place], [address], [facility] 02/11/2023 09:56:25 023 [place] completed YURY OROZCO, DELICATESSEN CLERK [address] [place], [address], [facility] 02/11/2023 11:04:26 023 Cerumen removal - Instruments, Unilateral completed YURY OROZCO, DELICATESSEN CLERK [address] [place], [address], [facility] 02/11/2023 11:04:16 023 Destruction Premalignant Lesion(s) completed Andreina Muse [facility] 01/06/2023 10:05:27 023 EKG completed VENKATA MORRIS, DELICATESSEN CLERK [address] [place], [address], [facility] 12/22/2022 12:14:26 023 PT Manual Therapy completed BALA RAHMAN, PT [address] [place], [address], [facility] 11/16/2022 13:59:41 023 PT Therapeutic Exercise completed BALA RAHMAN, PT [address] [place], [address], [facility] 11/16/2022 13:57:57 023 PT Ultrasound completed BALA RAHMAN, PT [address] [place], [address], [facility] 11/16/2022 13:59:49 023 PT Manual Therapy completed BALA RAHMAN, PT [address] [place], [address], [facility] 11/08/2022 19:18:33 023 PT Therapeutic Exercise completed BALA RAHMAN, PT [address] [place], [address], [facility] 11/08/2022 19:15:09 023 PT Ultrasound completed BALA RAHMAN, PT [address] [place], [address], [facility] 11/08/2022 19:18:24 023 PT Evaluation - Low Complexity completed BALA RAHMAN, PT [address] [place], [address], [facility] 10/20/2022 14:53:00 023 PT Therapeutic Exercise completed BALA RAHMAN, PT [address] [place], [address], [facility] 10/20/2022 14:53:28 023 Endoscopy Nasal; Diagnostic completed Sherie Hudson [facility] 09/02/2022 11:51:54 022 Destruction BN Lesions completed [facility] 07/05/2022 11:04:13 022 Destruction [place] Lesion; trunk, arm, leg completed Aleshia [facility] 03/31/2022 16:29:14 017 Review of Med Recs/Compl forms completed [facility] 02/03/2017 12:14:00 017 Endoscopy Nasal; Diagnostic completed [facility] 01/06/2017 09:51:33 017 Endoscopy Nasal; Biospy, Polypectomy or Debridement completed [facility] 12/01/2016 13:51:14 017 Nasopharyngoscopy completed [facility] 11/10/2016 11:32:31 017 Review of Med Recs/Compl forms completed [facility] 11/10/2016 11:27:30 017 Endoscopy Nasal; Biospy, Polypectomy or Debridement completed Maria Ines Stiles [facility] 11/04/2016 13:17:46 017 PT Therapeutic Exercise completed BALA RAHMAN, PT [address] [place], [address], [facility] 10/05/2016 14:10:15 017 PT Therapeutic Exercise completed BALA RAHMAN, PT [address] [place], [address], [facility] 09/29/2016 12:33:26 017 PT Evaluation - Low Complexity completed BALA RAHMAN, PT [address] [place], [address], [facility] 09/29/2016 12:33:09 017 Endoscopy Nasal; Biospy, Polypectomy or Debridement completed Sherie Hudson [facility] 09/23/2016 13:58:53 Imaging Results None recorded. Procedure Notes None recorded. Medical Equipment None Reported. Allergies Allergen ID Allergen Name Allergen Category Reaction Reaction Severity Criticality Documentation Date Start Date Code Code System Note Provider Name and Address Organization Details Recorded Time 123539 prednison e medicatio n Not available Not available Not available 07/22/20162009 8640 RxNorm Mary Cevallos [facility] 8 10:24:29 285572 clindamyc in hydrochlo ride medicatio n nausea Not available Not available 07/22/20162012 69557 RxNorm Candace Brown mere [facility] 7 09:10:31 458901 vancomyci n hydrochlo ride medicatio n Not available Not available Not available 07/22/20162012 09822 RxNorm Candace Brown mere [facility] 7 09:11:12 812814 acetamino phen / hydrocodo ne medicatio n nausea severe Not available 07/22/20162010 75017 2 RxNorm React ion: NAUSE A;Sev erity : Sever e; Comme nt: Creat ed By: Jennifer fernandez Date: 2010 4:54: 20 PM; Not Available [facility] 6 10:18:05 845018 Substance with prostagla ndin-endo peroxide synthase isoform 2 inhibitor mechanism of action (substanc e) Not available other Not available Not available 07/22/20162009 55778 0005 SNOMED Comme nt: CAUSE ULCER S Candace Teetrevor severino [facility] 7 09:10:42 129750 Substance with sulfonami de structure and antibacte rial mechanism of action (substanc e) medicatio n Not available Not available Not available 07/22/20162006 19078 8003 SNOMED Candace severino [facility] 7 09:11:08 911242 Reglan medicatio n Not available Not available Not available 07/22/20162009 9230 RxNorm Mary Cevallos [facility] 4 10:03:21 391922 Cymbalta medicatio n Not available Not available Not available 07/22/20162010 58593 4 RxNorm Candace Brown mere [facility] 7 09:10:46 228761 gabapenti n medicatio n rash Not available Not available 07/22/20162012 80092 RxNorm Candace Brown mere [facility] 7 09:10:51 689587 Medrol medicatio n rash Not available Not available 07/22/20162014 2 RxNorm Mary Cevallos [facility] 8 10:24:22 162564 codeine medicatio n Not available Not available Not available 07/22/20162006 2670 RxNorm Candace Brown mere [facility] 7 09:10:34 295906 Biaxin medicatio n other Not available Not available 07/22/20162006 9 RxNorm Comme nt: PT ON RELPA X SHOUL D NOT TAKE BIAXI N WITH THIS DRUG Candace Teeso mere [facility] 7 09:10:23 227668 midazolam hydrochlo ride medicatio n Not available Not available Not available 07/22/2016201312 8 RxNorm Candace Teeso mere [facility] 7 09:11:14 703007 acetamino phen / hydrocodo ne medicatio n nausea Not available Not available 07/23/2016201218 2 RxNorm Candace severino [facility] 7 09:10:55 035517 Cipro medicatio n abdominal pain Not available Not available 02/13/201868437 3 RxNorm Mary Cevallos [facility] 8 10:25:49 633083 Topamax medicatio n Not available Not available Not available 12/14/202138652 3 RxNorm Margarita Cole [facility] 2 11:53:05 283317 Non-stero idal anti-infl ammatory agent (product) medicatio n Not available Not available Not available 12/14/2021 74949 005 SNOMED Margarita Cole [facility] 2 11:53:13 293681 amoxicill in medicatio n Not available Not available Not available 09/12/2024 723 RxNorm Notif ied of aller gy 09/12 Ginny Edgar [facility] 5 15:26:18 424173 lidocaine medicatio n rash Not available Not available 11/27/2024 6387 RxNorm decli gideon topic al lidoc carleen due to rash/ burni ng Jeny David [facility] 5 15:04:06 Medications Name Sig Start Date Stop Date Status Note LastModified by Organization Details LastModified Time Compound Gentamyci n (120 mg/ 1000 mL normal saline) Felxi's Solution 120 mg in 1 liter of normal saline. Use as nasal lavage 1oz BID QTY 1 liter bottle 07/06 completed Not Available Not Available Not Available Compound Gentamyci n (120 mg/ 1000 mL normal saline) Sig: Felix's Solution 120 mg in 1 liter of normal saline. Use as nasal lavage 1oz BID QTY 1 liter bottle 03/30 completed Not Available Not Available Not Available compound drug USE 1 OZ NASAL LAVAGE BID 08/10 completed Not Available Not Available Not Available Compound Gentamici n 80 mg - Mupirocin 20 mg - Budesonid e 1 mg capsules #60 Empty contents of 1 capsule into irrigati on device, add distille d water, irrigate twice daily 2024 active not taking Not Available Not Available Not Available gentamici n 0.12/nacl 1000ml USE 30 MLS FOR NASAL LAVAGE TWICE DAILY 12/14 completed Not Available Not Available Not Available gentamici n 0.12gm/0. 9%nacl USE 30ML FOR NASAL LAVAGE TWICE DAILY 03/25 completed Not Available Not Available Not Available compounde d medicatio n USE 30 MLS FOR NASAL LAVAGE TWICE DAILY 08/10 completed Not Available Not Available Not Available Compound Gentamyci n (120 mg/ 1000 mL normal saline) Felix's Solution 120 mg in 1 liter of normal saline. Use as nasal lavage 1oz BID QTY 1 liter bottle 08/10 completed Not Available Not Available Not Available Compound Gentamyci n (120 mg/ 1000 mL normal saline) Felix's Solution 120 mg in 1 liter of normal saline. Use as nasal lavage 1oz BID QTY 1 liter bottle 01/25 completed not taking Not Available Not Available Not Available Compound Gentamyci n (120 mg/ 1000 mL normal saline) Sig: Felix's Solution 120 mg in 1 liter of normal saline. Use as nasal lavage 1oz BID QTY 1 liter bottle 01/01 completed Not Available Not Available Not Available Compound Gentamyci n (120 mg/ 1000 mL normal saline) Felix's Solution 120mg in 1 liter of normal saline- use as lavage 1oz bid daily 2016 active Not Available Not Available Not Avai lable compounde d medicatio n USE 1 OZ NASAL LAVAGE TWICE DAILY 08/10 completed Not Available Not Available Not Available compounde d medicatio n USE 1 OZ NASAL LAVAGE TWICE DAILY active Not Available Not Available No t Available Compound Gentamyci n (120 mg/ 1000 mL normal saline) Felix's Solution 120mg in 1 liter of normal saline- use as lavage 1oz bid daily 2016 active Not Available Not Available Not Avai lable Compound Gentamyci n (120 mg/ 1000 mL normal saline) Felix's Solution 120 mg in 1 liter of normal saline. Use as nasal lavage 1oz BID QTY 1 liter bottle 12/14 completed Not Available Not Available Not Available losartan 50 mg tablet Take 1 tablet twice a day by oral route. active 1/2 tab in am 1/2 tab in eh Not Available Not Available Not Available nifedipin e ER 30 mg tablet,ex tended release 24 hr 07/06 completed Not Available Not Available Not Available amoxicill in 500 mg capsule 11/18 completed Not Available Not Available Not Available fluconazo le 100 mg tablet 05/25 completed Not Available Not Available Not Available metformin 500 mg tablet 08/24 completed Not Available Not Available Not Available anastrozo le 1 mg tablet TAKE 1 TABLET BY MOUTH ONCE DAILY 12/22 completed PRN, rarely used Not Available Not Available Not Available nystatin 100,000 unit/mL oral suspensio n 10/27 completed Not Available Not Available Not Available prednison e 10 mg tablet take 4 po qd x 5 days, then 3 po qd x 5 days, 2 po qd x 5 days, 1 po qd x 5 days. 05/25 completed Not Available Not Available Not Available rabeprazo le 20 mg tablet,de layed release TAKE 1 TABLET BY MOUTH ONCE DAILY FOR REFLUX. 2024 active Not Available Not Available Not Avai lable doxycycli ne hyclate 100 mg capsule TAKE 1 CAPSULE BY MOUTH TWICE DAILY FOR 10 DAYS 07/06 completed Not Available Not Available Not Available cefuroxim e axetil 250 mg tablet 10/27 completed Not Available Not Available Not Available Carafate 100 mg/mL oral suspensio n 04/24 completed Not Available Not Available Not Available azithromy cornelius 250 mg tablet 07/06 completed Not Available Not Available Not Available fluconazo le 150 mg tablet Diflucan 150mg one PO qd for three days #3 No refills 10/31 completed Not Available Not Available Not Available hydrocodo ne 5 mg-acetam inophen 325 mg tablet 07/06 completed Not Available Not Available Not Available ondansetr on HCl 4 mg tablet 12/22 completed Not Available Not Available Not Available famotidin e 40 mg tablet Take 1 tablet every day by oral route at bedtime for 30 days. 07/06 completed NOT TAKING, PER PT 6-3-24 Not Available Not Available Not Available Medrol (Christos) 4 mg tablets in a dose pack as directed 02/11 completed Not Available Not Available Not Available fluoroura cil 5 % topical cream APPLY A SUFFICIE NT AMOUNT TO COVER THE LESIONS IN THE AFFECTED AREA(S) BY TOPICAL ROUTE 2 TIMES PER DAY FOR 2-3 WEEKS. WASH HANDS AFTER EACH APPLICAT ION active not taking Not Available Not Available Not Available pimecroli mus 1 % topical cream Apply by topical route for 22 days. active not taking Not Available Not Available Not Available clobetaso l 0.05 % topical cream APPLY A THIN LAYER TO THE AFFECTED AREA(S) BY TOPICAL ROUTE 2 TIMES PER DAY 1-2 WEEKS UNTIL POISON ALEN RESOLVES 2024 active Not Available Not Available Not Avai lable cyanocoba francesca (vit B-12) 1,000 mcg tablet TAKE 1 TABLET BY MOUTH ONCE DAILY 08/10 completed Not Available Not Available Not Available Accu-Chek Softclix Lancets USE DIRECTED FOR TWICE DAILY DIABETIC TESTING active Not Available Not Available No t Available oxycodone 5 mg/5 mL oral solution 04/24 completed Not Available Not Available Not Available clopidogr el 75 mg tablet Take 1 tablet every day by oral route. active Not Available Not Available No t Available amlodipin e 5 mg tablet 07/06 completed Not Available Not Available Not Available gentamici n (bulk) 590 mcg/mg powder 03/25 completed Not Available Not Available Not Available Tamiflu 75 mg capsule 08/24 completed Not Available Not Available Not Available tramadol 50 mg tablet TAKE 1 TABL PO Q 4-6 HRS PRN FOR SEVERE POST SURGICAL PAIN 10/19 completed Not Available Not Available Not Available cyclopent olate 1 % eye drops 10/31 completed Not Available Not Available Not Available meloxicam 7.5 mg tablet TAKE 1 TABLE PO QD WITH FOOD REGARDLE SS OF PAIN LEVEL FOR 1 WEEK. THEN TAKE 1 TABLET PO QD ONLY PRN FOR PAIN RELIEF THEREAFT ER 02/26 completed Not Available Not Available Not Available sodium chloride 0.9 % irrigatio n solution 08/10 completed Not Available Not Available Not Available amoxicill in 875 mg tablet 04/19 completed Not Available Not Available Not Available prednisol one acetate 1 % eye drops,cain pension 09/02 completed Not Available Not Available Not Available Rocephin 1 gram intraveno us solution Inject by intraven ous route. 05/25 completed Not Available Not Available Not Available gentamici n 0.3 % eye drops 08/24 completed Not Available Not Available Not Available repaglini de 0.5 mg tablet Take 1 tablet 3 times a day by oral route. 06/13 completed Not Available Not Available Not Available Flagyl 500 mg tablet Take 1 tablet every 8 hours by oral route. 12/07 completed Not Available Not Available Not Available doxycycli ne monohydra te 100 mg capsule Take 1 capsule twice a day by oral route for 14 days. 10/01 completed Not Available Not Available Not Available hydrocodo ne 7.5 mg-acetam inophen 325 mg tablet 08/24 completed Not Available Not Available Not Available cephalexi n 500 mg capsule 02/13 completed Not Available Not Available Not Available pantopraz ole 40 mg tablet,de layed release Take 1 tablet every day by oral route for 30 days. 02/08 completed Could not tolerate d, make pt sleep alot Not Available Not Available Not Available erythromy cornelius 5 mg/gram (0.5 %) eye ointment 10/31 completed Not Available Not Available Not Available nortripty line 10 mg capsule TK 7 CS PO HS active Not Available Not Available No t Available tacrolimu s 0.1 % topical ointment APPLY A THIN LAYER TO THE AFFECTED AREA(S) BY TOPICAL ROUTE 2 TIMES PER DAY ; RUB IN GENTLY AND COMPLETE LY 09/02 completed Not Available Not Available Not Available metformin 1,000 mg tablet Two times a day 05/10 completed Not Available Not Available Not Available esomepraz ole magnesium 40 mg capsule,d elayed release 11/05 completed Stopped per pt Not Available Not Available Not Available Neurontin 100 mg capsule TAKE 1 CAPSULE PO QHS FOR 1 WEEK 06/04 completed Not Available Not Available Not Available clotrimaz ole-betam ethasone 1 %-0.05 % topical cream 08/24 completed Not Available Not Available Not Available lisinopri l 10 mg tablet 08/10 completed Not Available Not Available Not Available lansopraz ole 30 mg capsule,d elayed release TAKE 1 CAPSULE BY MOUTH ONCE DAILY DIRECTED 07/06 completed c/o explosiv e diarrhea on this med Not Available Not Available Not Available carbamaze pine 100 mg chewable tablet Chew 1 tablet twice a day by oral route. 08/01 completed Not Available Not Available Not Available propranol ol ER 80 mg capsule,2 4 hr,extend ed release Daily active Not Available Not Available Not Available budesonid e 0.5 mg/2 mL suspensio n for nebulizat ion Empty contents of 1 vial (2mL) into irrigati on device, add distille d water, irrigate twice daily 01/25 completed not taking Not Available Not Available Not Available ammonium lactate 12 % topical cream APPLY THIN LAYER TO SKIN OF BODY BY TOPICAL ROUTE ONCE DAILY 2022 active Not Available Not Available Not Avai lable mupirocin 2 % topical ointment Apply to affected area 3 times per day for 7 days 2024 active Not Available Not Available Not Avai lable furosemid e 20 mg tablet 04/24 completed prn Not Available Not Available Not Available azelastin e 137 mcg (0.1 %) nasal spray 1 spray each nostril BID active Not Available Not Available No t Available levofloxa cornelius 500 mg tablet 10/31 completed Not Available Not Available Not Available gentamici n 40 mg/mL injection solution 05/25 completed Not Available Not Available Not Available neomycin 500 mg tablet Take 4 tablets twice a day by oral route. 12/07 completed Not Available Not Available Not Available cefdinir 300 mg capsule Take 1 capsule every 12 hours by oral route for 7 days. 12/11 completed Not Available Not Available Not Available fluticaso ne propionat e 50 mcg/actua tion nasal spray,cain pension 1 spray each nostril BID 11/07 completed Not Available Not Available Not Available metformin ER 500 mg tablet,ex tended release 24 hr 02/26 completed Not Available Not Available Not Available colestipo l 1 gram tablet Take 2 tablets twice a day by oral route as directed for 30 days. 05/30 completed Not Available Not Available Not Available doxycycli ne hyclate 100 mg tablet Take 1 tablet twice a day by oral route for 14 days. 11/22 completed Not Available Not Available Not Available nortripty line 50 mg capsule Every night at bedtime 05/25 completed Instruct ions: for fibromya lgia.;Fr equency: qhs;Medi cation Descript ion: nortript yline; Dosage:1 ; Route:or al; refills: PRN 1 yr; Quantity :30 capsule Not Available Not Available Not Available amoxicill in 875 mg-potass ium clavulana te 125 mg tablet Take 1 tablet twice a day by oral route with meals for 10 days. active Not Available Not Available No t Available amoxicill in 500 mg-potass ium clavulana te 125 mg tablet 04/24 completed Not Available Not Available Not Available esomepraz ole magnesium 20 mg capsule,d elayed release Every night at bedtime 01/06 completed Not Available Not Available Not Available eletripta n 20 mg tablet Take as needed by oral route. active Not Available Not Available No t Available cholestyr amine (with sugar) 4 gram powder for susp in a packet 04/24 completed Not Available Not Available Not Available Boostrix Tdap 2.5 Lf unit-8 mcg-5 Lf/0.5 mL intramusc ular syringe 08/24 completed Not Available Not Available Not Available ramelteon 8 mg tablet TAKE 1 TABLET AT BEDTIME 09/02 completed Not Available Not Available Not Available chlorhexi dine gluconate 0.12 % mouthwash 12/14 completed Not Available Not Available Not Available gentamici n 01/06 completed with mela baird for nasal lavage Not Available Not Available Not Available folic acid active Not Available Not Available Not Available clopidogr el 01/25 completed pt takies 1 tablet po daily unsure of mg Not Available Not Available Not Available amlodipin e 12/22 completed Not Available Not Available Not Available lisinopri l 06/13 completed Not Available Not Available Not Available Vitamin D3 active Not Available Not Available Not Available Medrol (Christos) 04/24 completed Not Available Not Available Not Available Nexium 04/07 completed Not Available Not Available Not Available Relpax 02/24 completed Not Available Not Available Not Available Zostavax (PF) 19,400 unit/0.65 mL subcutane ous suspensio n 08/24 completed Not Available Not Available Not Available Januvia 100 mg tablet 02/26 completed Not Available Not Available Not Available hydrochlo rothiazid e 12.5 mg tablet TAKE 1 TABLET BY MOUTH EVERY MORNING 2023 active Not Available Not Available Not Avai lable Golytely 236 gram-22.7 4 gram-6.74 gram-5.86 gram oral solution Take 4000 mL every day by oral route as directed . 07/06 completed NOT TAKING, PER PT 6-3-24 Not Available Not Available Not Available Lantus Solostar U-100 Insulin 100 unit/mL (3 mL) subcutane ous pen 01/29 completed Not Available Not Available Not Available diclofena c 1 % topical gel 08/24 completed Not Available Not Available Not Available metformin ER 1,000 mg 24 hr tablet,ex tended release (gastric reten.) 05/30 completed Not Available Not Available Not Available Prevnar 13 (PF) 0.5 mL intramusc ular syringe 08/24 completed Not Available Not Available Not Available OneTouch Delica Lancets 33 gauge 08/10 completed Not Available Not Available Not Available Xifaxan 550 mg tablet Take 1 tablet 3 times a day by oral route as directed for 14 days. 11/05 completed Not Available Not Available Not Available Silenor 3 mg tablet Take 1 tablet every day by oral route. 04/24 completed Not Available Not Available Not Available Accu-Chek Chiquis Plus test strips USE DIRECTED FOR TWICE DAILY DIABETIC TESTING active Not Available Not Available No t Available vit B12 50 mcg-iodin e 75 mcg-mag 100 mg-zinc-s elenium-h erb 193 capsule Take by oral route. 02/13 completed Not Available Not Available Not Available Accu-Chek Chiquis Plus Meter 08/10 completed Not Available Not Available Not Available Linzess 145 mcg capsule Take 1 capsule every day by oral route as directed for 30 days. 09/02 completed Not Available Not Available Not Available Unifine Pentips 32 gauge x 5/32 needle USE DIRECTED ONCE DAILY active Not Available Not Available No t Available Invokana 100 mg tablet TAKE 1 TABLET BY MOUTH EVERY MORNING 08/10 completed Not Available Not Available Not Available Invokana 300 mg tablet Take 1 tablet every day by oral route. 02/26 completed Not Available Not Available Not Available Farxiga 10 mg tablet 02/26 completed Not Available Not Available Not Available Trulicity 1.5 mg/0.5 mL subcutane ous pen injector 11/24 completed Not Available Not Available Not Available Trulicity 09/02 completed Not Available Not Available Not Available IBgard 90 mg capsule,d elayed,ex tended release Take 1 capsule 3 times a day by oral route as directed for 30 days. 08/10 completed Not Available Not Available Not Available Vitamin B12 active Not Available Not Available Not Available Fluarix Quad 5917-8329 (PF) 60 mcg (15 mcg x 4)/0.5 mL IM syringe 08/24 completed Not Available Not Available Not Available Soliqua 100/33 100 unit-33 mcg/mL subcutane ous insulin pen 09/02 completed Not Available Not Available Not Available Fluad 2016- 65yr up(PF)45 mcg(15 mcgx3)/0. 5 mL intramusc ular syringe 10/31 completed Not Available Not Available Not Available Shingrix (PF) 50 mcg/0.5 mL intramusc ular suspensio n, kit ADM 0.5ML IM UTD 11/05 completed Not Available Not Available Not Available OneTouch Ultra Blue Test Strip 08/10 completed Not Available Not Available Not Available Fluzone High-Dose (PF) 180 mcg/0.5 mL intramusc ular syringe 01/01 completed Not Available Not Available Not Available Motegrity 2 mg tablet Take 1 tablet every day by oral route as directed for 14 days. 09/02 completed Not Available Not Available Not Available Novolin R FlexPen 100 unit/mL (3 mL) subcutane ous insulin pen 11/05 completed Not Available Not Available Not Available Fluzone High-Dose Quad (PF) 240 mcg/0.7 mL IM syringe ADM 0.7ML IM UTD 11/05 completed Not Available Not Available Not Available Trulicity 3 mg/0.5 mL subcutane ous pen injector active Not Available Not Available Not Available Sutab 1.479-0.1 88-0.225 gram tablet Take by oral route for 2 days. 12/07 completed Not Available Not Available Not Available Basaglar Tempo Pen (U-100) Insulin 100 unit/mL (3 mL) subcut pen,sensr Inject 75 units by subcutan eous route. active Not Available Not Available No t Available Vitals Date Recorded Body height Body mass index (BMI) Body weight Oxygen saturation Oxygen saturation in Arterial blood by Pulse oximetry Heart rate Systolic And Diastolic Provider Name and Address Organization Details Last Updated DateTime 5 175.26 cm 25.3 kg/m2 71719.3 g 95 % 95 % 78 /min 120/60 mm[Hg] [employer] [facility] 5 13:24:53 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 Question Answer Notes LastModified by Organizat ion Details LastModified Time Tobacco Smoking Status Never Smoker Patricia sanches [facility] 08/24/2016 13:57:44 What Is Your Level Of Caffeine Consumption? Occasional Information not available 10/31/2017 How Much Tobacco Do You Chew? None [email or web address] Information not available 11/05/2020 Which Of Your Hands Is Dominant? Right Information not available 10/31/2017 Exposure To Fumes No Informa tion not available 06/30/2022 Exposure To Dust No Informat ion not available 06/30/2022 Exposure To Smoke No Informa tion not available 06/30/2022 Exposure To Asbestos No Information not available 06/30/2022 Exposure To Animals Yes Information not available 06/30/2022 Exposure To Other Toxic Chemicals No Information not available 06/30/2022 Marijuana No Information no t available 06/30/2022 Marital Status Informatio n not available 08/24/2016 What Was The Date Of Your Most Recent Tobacco Screening? 01/25/[email or web address] Information not available 01/25/2025 How Many Children Do You Have? 4 [email or web address] Information not available 11/19/2021 What Is Your Relationship Status? [email or web address] Information not available 11/19/2021 How Much Tobacco Do You Smoke? No Information not available 11/05/2020 Has Tobacco Cessation Counseling Been Provided? No [email or web address] Information not available 12/22/2022 How Many Years Have You Smoked Tobacco? 0 [email or web address] Information not available 11/05/2020 Have You Recently Traveled Abroad? No [email or web address] Information not available 11/19/2021 Sex: Female Functional Status Question Answer Note LastModified by Organizat ion Details LastModified Time Do you use any illicit or recreational drugs? No Information not available 10/31/2017 Do you or have you ever used any other forms of tobacco or nicotine? No Information not available 06/30/2022 What is your level of alcohol consumption? Occasional one glass of wine daily [email or web address] Information not available 11/05/2020 Do you or have you ever used smokeless tobacco? Never used smokeless tobacco [email or web address] Information not available 11/05/2020 Are you currently employed? 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 Never used electronic cigarettes Information not available 11/05/2020 What is your exercise level? Occasional Information not available 06/30/2022 Mental Status None recorded. Family History Relationship Description Onset Age of this Age Resolved Age Notes LastModified by Organization Details LastModified Time Father Malignant neoplasm of prostate [email or web address] Not available 2015 13:56:37 Father Family history of malignant neoplasm [email or web address] Not available 01/06 08:28:54 Mother Diabetes mellitus [email or web address] Not available 2015 13:56:58 Mother Disorder of urinary tract [email or web address] Not available 2017 10:33:44 Mother Heart disease heart attack [email or web address] Not available 02/13/2018 10:33:03 Mother Hypertensive disorder [email or web address] Not available 01/06 08:29:16 Mother Family history of stroke [email or web address] Not available 01/06 08:29:42 Sister Family history of malignant neoplasm [email or web address] Not available 01/06 08:28:54 Unspecified Relation Hearing loss [email or web address] Not available 08/29 15:36:18 Medical History Condition Response Kidney Stones N Hyperthyroidism N Heart Arrhythmia N Emphysema N Hernia Y Esophagus/swallowing troubles N Glaucoma N Depression N Hypothyroidism N Lung Disease N Pneumonia Y Anesthesia Complications N Anxiety Disorder N Arthritis Y Hearing Loss Y Acid Reflux (GERD) Y Cancer Y Stroke N Hoarseness N Radiation Therapy Y Alcohol Overuse/Alcohol Abuse N High Cholesterol Y Snoring problems N Liver Disease N Headaches Y Kidney Disease N Allergies/Hayfever Y Heart Problems Y Squamous Cell Carcinoma Y Mental handicap N Ear or Hearing Problems N Gallbladder Disease N Migraines Y Thyroid Problems Y Goiter N Anemia N Immune System Disorder N Chest Pain N Stomach trouble N Ulcers Y Heart Attack (NE) N Diabetes Y Rheumatic Fever N Bleeding Disorder N Tuberculosis N AIDS/HIV N Hyperlipidemia Y Urinary Tract Infection Y Asthma N Epilepsy/Seizures N Basal Cell Carcinoma Y Reflux/GERD Y Sleep Apnea Y Sleep Disorder N Hepatitis N Heart Disease Y Included as Review of Systems Y Hypertension Y Gynecological HistoryNo gynecological history recorded. Obstetrics History GPAL:G 4 P 4 0 0 0 Type Value Full Term 4 Total 4 Immunizations Vaccine Type Date Status Note Provider Nam e and Address Organization Details Recorded Time COVID-19, mRNA, LNP-S, PF, 30 mcg/0.3 mL dose 09/25/2020 completed Marino [facility] 12/11/2024 15:52:44 COVID-19, mRNA, LNP-S, PF, 30 mcg/0.3 mL dose 10/21/2020 completed Marino Hernandez [facility] 12/11/2024 15:52:44 COVID-19, mRNA, LNP-S, PF, 30 mcg/0.3 mL dose 06/11/2021 [facility] 12/11/2024 15:52:44 Past Encounters Encounter ID Performer Location Encounter Start Date Encounter Closed Date Diagnosis/Indication Diagnosis SNOMED-CT Code Diagnosis ICD10 Code Diagnosis Note [id number] MD SULEIMAN HART[facility] [address] [facility] [address] [place] [address] 12/28/2024 13:38:24 12/28/2024 14:08:30 Chronic recurrent sinusitis [id number] J32.9 -2007 - Septoplast y, Left ESS Dr SUMMERS-05/2016 - Revision left MMA, left ethmoidect cynthia, left NA window (limited medial maxillecto my), left SMR inferior turbinate- 10/27/17 -Left Nasal/Sinu s endoscopy/ debridemen t = crusty, slightly purulent drainage from the left maxillary sinus-09/28 -Left Maxillary Sinus Debridemen t - culture obtained= no growth-01/01 -left nasal/sinu s endoscopy =yellow/gr een crusting in the left-05/30 -nasal/sin us endoscopic debridemen t= yellow/gre en drainage right posterior ethmoid sinuses and from the frontal recess. Sent for culture-09/06/19 -Nasal endoscopy with debridemen t of crusting of the left middle meatus and purulent drainage of the maxillary sinus-07/29 11/16 -minimal light yellow-gre en crusting at the left middle meatus-09/02 - Left nasal endoscopy and debridemen t with yellow-gre en crusting and inflammati on at the left maxillary sinus ostia- minimal left sided crusting. Sinus and nasal mucosa is pink and healthy. Rx- Gentamycin irrigate BID11/27/24- left sinusitis; culture obtained today in office Laryngopha ryngeal reflux [id number] K21.9 -2008 - s/p [facility] procedure [facility] -Dr. Wood Cesar-09/25 - EGD Dr Latanya Hunt-01/01 - fiberoptic laryngosco py - shows moderate LPR/aryten oiditis- - EGD - Dr Latanya Hunt - Fundoplic ation loosened but intact ; Evidence gastropare sis- 4 - fiberoptic laryngosco py shows moderate inflammati on of each arytenoid with otherwise normal-michel earing true vocal cords with no nodules or polyps; no leukoplaki a; no hypopharyn geal masses; Pain appears to be the result of arytenoidi tis from LPR02/09/24 - IDL= much improved arytenoid inflammati on. Pt may return to singing. Tam's esophagus 3029 22946 K22.70 02/09/24- managed with Dr. Abraham Neck pain [id number] M54.2 -09/08/22 -Thyroid ultrasound at [facility] no thyroid nodules or masses identified -04/2023 - Onset of intermitte nt right lower neck pain- - Neck ultrasound years to [facility] appearance in the designated painful area; several small lymph nodes appreciate d none of which are enlarged; normal-michel earing salivary glands-08/29 09/21 - Examinatio n of the neck reveals no neck masses palpable cervical lymph nodes or thyroid masses; fiberoptic laryngosco py shows moderate inflammati on of each arytenoid with otherwise normal-michel earing true vocal cords with no nodules or polyps; no leukoplaki a; no hypopharyn geal masses; Pain appears to be the result of arytenoidi tis from LPR02/09/24 - no complaints of Thyroid nodule [id number] E04.1 -09/02/22 - Lower right lobe sl tender- 09/08/22 Thyroid US [facility]= no thyroid nodule or mass identified . Small right neck lymph nodes, nonspecifi c and likely reactive noted. Obstructiv e sleep apnea syndrome 05147353 G47.33 -using CPAP nightly Vasomotor rhinitis 28112 03 J30.0 Sensorineu ral hearing loss of bilateral ears 189016459 H90.3 Absence of bilateral tonsils [id number] Z90.09 [id number] VENKATA MORRIS, DELICATESSEN CLERK CARDIOLOG Y [address] [place] [address] 01/25/2025 12:36:16 01/25/2025 13:52:07 Coronary arteriosclerosis 70334199 I25.10 CCTA done at [facility] gat ston score = 161Left Main: CAD-RADS 0 The left main bifurcates into the left anterior descending artery and left circumflex artery.LAD and Diagonals: CAD-RADS 3. Multiple calcified plaques in the proximal LAD and D1 with moderate stenosis.L Cx and Obtuse Marginals: CAD-RADS 1 Calcified plaques in the proximal LCx with mild stenosis.R CA: CAD-RADS 0 RCA runs in the left AV groove then descends posteriorl y to terminate as PDA. No visible plaques or stenosis. FFRThe 50% stenosis in the proximal LAD artery has a Low likelihood offlow-rodriguez itation with an FFRct value of 0.92. Lexiscan done 08/09/2024 demonstrat ed no ischemia. continue plavix, she notes she cannot take ASADecline s statin d/t history of neuropathy Follow up in 6 mo for ongoing management Supraventr icular tachycardia 6157255 I47.10 Stable. No evidence of recurrence most recent heart monitor. continue with BB. Obstructiv e sleep apnea syndrome [id number] G47.33 Not currently treating Hypertensive disorder 38 120501 I10 Stable.Low sodium diet. Type 2 dereje betes mellitus 41366734 E11.9 PCP monitoring . Hyperlipidemia 63180895 E78.5 Notes she cannot take statin, notes it caused peripheral neuropathy Discussed importance of tight control of lipids d/t Hx of CADLDL goal < 55, consider PSCK9-I if not attained given her history of non-obs CADPrimary care monitoring Health Concerns Section Related Observation LastModified by Organization Detai ls LastModified Time None Recorded Concern Status LastModified by Organization Details LastModified Time None Recorded Payers Encounter Date Sequence Insurance Name Policy Number Policy [place] Covered Member ID [place] Member ID Guarantor Name 01/25/2025 1 [place] Candace Bryant [id number] Candace Bryant 01/25/2025 2 [employer] (MEDICARE SUPPLEMENT) Candace Bryant [id number] Candace Bryant Notes Date Note Type Note Provider Name and Address Organization Details Recorded Time text/html Ms. Bryant is a pleasant 74-year-old white female initially referred by Dr. Jean in 2021 d/t ongoing dizziness with a history of SVT and occasional PVCs, diagnosed in 2007. Echo with bubble study 11/2021Impression:Normal echocardiogram.No significant valvular heart disease.Normal systolic function and ejection fraction. EF = 65%.Grade 1 diastolic dysfunctionNegative bubble study Carotid duplex 11/2021ImpressionNo hemodynamically significant (<50%) stenosis of the bilateral internal carotid arteries. Mild intimal thickening along bilateral CCAs.The vertebral arteries demonstrate antegrade flow.There is no evidence of subclavian steal.There are no prior studies for comparison. Holter study 10/2021 which revealed no sustained or malignant arrythmias. Myoview GXT done 10/2022 which was negative for ischemia, normal LV function. Had repeat carotid at [facility] which showed < 50% bilat ICA stenosis. Brain MRI 12/2022 was normal. 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 CCTA done at [facility] gatston score = 161Left Main: CAD-RADS 0 The left main bifurcates into the left anterior descending artery and left circumflex artery.LAD and Diagonals: CAD-RADS 3. Multiple calcified plaques in the proximal LAD and D1 with moderate stenosis.LCx and Obtuse Marginals: CAD-RADS 1 Calcified plaques in the proximal LCx with mild stenosis.RCA: CAD-RADS 0 RCA runs in the left AV groove then descends posteriorly to terminate as PDA. No visible plaques or stenosis. FFRThe 50% stenosis in the proximal LAD artery has a Low likelihood offlow-limitation with an FFRct value of 0.92. Last visit 06/2024 she had complaint of CP.She underwent Lexiscan 08/09/20243828Vwimujjown1. Normal myocardial perfusion at rest and stress.2. LVEF= 69%, with normal regional wall motion.3. No significant EKG changes noted during this study. She had declined ASA therapy, but was agreeable to plavix at last office visit. Here today for follow upShe is going through workup for dementia, this was ordered per her primary care. She is having problems remembering objects and names. this is causing a withdrawl from social situations.She reports no CP today. She did see her primary care regarding CP. She notes her PCP checked her out and felt things were ok.She notes symptoms have resolved.She reports no orthopnea, PND, syncope, LE edema. She did not start plavix last visit, but notes she more recently started. Did have a leg fracture since last visit. Did not require surgical intervention. VENKATA MORRIS, DELICATESSEN CLERK [address] [place], [address], [facility] 01/25/2025 15:30:22 OBGyn Episode No OBEpisode recorded.
--- OUTSIDE RECORDS SUMMARY | 2025-03-01 10:30 | XMS_ITS | Clinical Summary ---
Author Organization [facility] Address [address] [place] [address] Care Team Providers Care Cryptologic Supervisor Name Role Phone Graham Jose MD Primary Care Provider [phone] Allergies Active Allergy Reactions Criticality Noted Date Comments Codeine Rash Low 02/10/2023 Gabapentin Swelling High 02/10/2023 Nsaids Other - please docum ent in the comment field Low 02/10/2023 ulcer Sulfa Drugs Swelling High 02/10/2023 Vancomycin Rash Low 02/10/2023 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 Tobacco Use Types Packs/Day Years Used Date Smoking Tobacco: Never Assessed Comments Unknown Sex and Gender Information Value Date Recorded Sex Assigned at Not on file Legal Sex Female 8:50 PM EDT Gender Identity Not on file Sexual Orientation Not on file Last Filed Vital Signs Vital Sign Reading Time Taken Comments Blood Pressure 112/50 02/18/2023 2:13 PM EDT Pulse 74 02/18/2023 2:13 PM EDT Temperature - - Respiratory Rate 17 02/18/2023 12:58 PM EDT Oxygen Saturation 93% 02/18/2023 2:13 PM EDT Inhaled Oxygen Concentration - - Weight - - Height - - Body Mass Index - - Plan of Treatment Health Maintenance Due Date Last Done Comments [facility]-Depression Screening 1948 [facility]-Hepatitis C Screening 1950 [facility]-Medicare Annual Wellness (AWV) 1950 [facility]-/Child/Adol SDOH Screenings 1948 [facility]- SDOH Screenings 1966 [facility]-Adult SDOH Screenings 1966 [facility]-DTaP,Tdap,and Td Vaccines (1 - Tdap) 1967 [facility]-Pneumococcal Vaccine: 50+ Years (1 of 1 - PCV) 1998 [facility]-RSV Vaccine: 60+ Years or (1 - 1-dose 75+ series) 2023 [facility]-Bone Density Scan 11/20/2023 11/19/2021 , 02/12/2020, 07/07/2017 [id number] Vaccine ( season) 2024 06/10/2021, 10/21/2020, 09/26/2020 [facility]-Influenza Vaccine (#1) 04/29/202507/13, 06/28/2021, 04/15/2020, Additional history exists [facility]-Zoster Vaccines Completed 12/30/2020, 07/31/2020, 01/07/2016 [facility]-Breast Cancer Screening Discontinued 02/11/2022, 02/05/2021, 01/03/2020, Additional history exists HPV Vaccines Aged Out No longer eligi ble based on patient's age to complete this topic [facility]-HIB Vaccines Aged Out No longer e ligible based on patient's age to complete this topic [facility]-Hepatitis A Vaccines Aged Out No longer eligible based on patient's age to complete this topic [facility]-IPV Vaccines Aged Out No longer e ligible based on patient's age to complete this topic [facility]-Rotavirus Vaccines Aged Out No lo nger eligible based on patient's age to complete this topic Insurance MEDICARE [facility] Care Teams Cryptologic Supervisor Relationship Specialty Start Date End Date Graham Jose MD [address] [place] [address] [place] [id number] PCP - General 01/09/21
--- OUTSIDE RECORDS SUMMARY | 2025-03-01 10:30 | XMS_ITS | Continuity of Care Document ---
Author Organization [facility] Address [address] [place] [address] Care Team Providers Care Enrollment Clerk Name Role Phone SHOAIB CHAUHAN Independent Living Advisor JERSEY NAVAS Retail Management Trainee TAYLER SWEENEY OTHER VIKTORIA CORDOVA OTHER YURY CESAR OTHER GRAHAM JEAN Primary Care Provider [phone] SERA NO Breast Surgeon [phone] GRAHAM CORONA Urologist VALARIE MEYERS Tonger YURY ANDERSON Health Care Assistant VENKATA MORRIS Post Manager LU WRIGHT General Surgeon Assessment Encounter Date Assessment Date Assessment LastModified by Organization Details LastModified Time 01/30/2025 01/30/2025 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 *Daughter passed in October 2019 from metastatic SCC pelvis* Daughter lives in [facility], Son in law is a airline pilot, has 3 grandchildren Not available 02/03/2025 19:45:44 Plan of Treatment Reminders Order Date Submit Date Provider Last Modified By Organization Details Last Modified Time Details Appointments RECHECK 2024 11:10A M LAUREN GRIFFIN MD Not available Not available Not available ESTABLISH ED PT VISIT 2024 02:45P M LOUISE ROSS PA-C Not available Not available Not available RECHECK 2025 11:45A M VENKATA MORRIS [employer] Not available Not available Not available Lab surgical pathology study 2024 025 [facility], [address] [place] [address], [id number], 02/01/2025 16:09:08 Referral None recorded. Procedures None recorded. Surgeries None recorded. Imaging None recorded. Medication Orders clobetaso l 0.05 % topical cream 2024 025 [facility], [address], [address], [place], [address], 01/30/2025 16:58:32 Patient TargetsNo targets recorded. Patient Instructions Encounter Date Encounter Id Patient Instructions Last Modified By Organization Details Last Modified Time 01/30/2025 [id number] Education/alt/ri s ks/benefits/SE of Dx & Tx discussed. Daily UV protection with broad-spectrum SPF 30+ on exposed areas recommended. Pt encouraged to RTC with any new/changing lesions. [email or web address] Not available 01/30/2025 08:26:58 Reason for Referral None Reported. Problems Name Problem SNOMED Code Status Onset Date Resolution Date Notes Provider Name and Address Organization Details Recorded Time Low back pain 490912191 Active 2016 BALA RAHMAN, PT [facility] [place] [facility] [place], [address] , [facility] 7 12:34:12 Abnormal posture 08445109 Active 2016 BALA RAHMAN, PT [address] [place], [address] , [facility] 7 12:34:14 Muscle weakness 13093302 Active 2016 BALA RAHMAN, PT [address] [place], [address] , [facility] 7 12:34:15 Lumbar spine stiff 660519211 Active 2016 BALA RAHMAN, PT [address] [place], [address] , [facility] 7 12:34:16 Nasal polyp Active 2015 From Automated Load;Prov ider: Shoaib Chauhan;Sta tus: Active Not Available [facility] 7 06:09:08 Contusion of rib 755632932 Active 2017 BALA RAHMAN, PT [address] [place], [address] , [facility] 8 18:42:00 Stiff back 518385572 Active 2017 BALA RAHMAN, PT [address] [place], [address] , [facility] 8 18:42:01 Rib pain 006958346 Active 2017 BALA RAHMAN, PT [address] [place], [address] , [facility] 8 18:42:03 Infection of sebaceous cyst 763532519 Active 2017 left thigh Lilli Graves [facility] 8 14:27:30 Osteoarth ritis of joint of hand 73491980 Active 2019 BALA RAHMAN, PT [address] [place], [address] , [facility] 0 19:51:53 Pain in right hand 91568575726 9109 Active 2019 BALA RAHMAN, PT [address] [place], [address] , [facility] 0 19:51:55 Stiffness of joint of right hand 44862557646 9106 Active 2019 BALA RAHMAN, PT [address] [place], [address] , [facility] 0 19:51:57 Contractu re of joint of finger of left hand due to scar 28319596173 063395 Active 2019 BALA RAHMAN, PT [address] [place], [address] , [facility] 0 17:06:15 Thumb joint stiff 528461620 Active 2019 BALA RAHMAN, PT [address] [place], [address] , [facility] 0 17:06:30 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 88468380 Active 2019 BALA RAHMAN, PT [address] [place], [address] , [facility] 0 17:07:01 Pain of right shoulder joint 13450222884 960506 Active 2019 BALA RAHMAN, PT [address] [place], [address] , [facility] 0 18:53:50 Essential hypertens ion 15620149 Active 2021 KAMILAH LOPEZ, FARMWORK[employer]Y [address] [place], [address] , [facility] 2 16:55:28 Type 2 diabetes mellitus 77809291 Active 2021 KAMILAH LOPEZ, [employer] [address] [place], [address] , [facility] 2 16:55:41 Palpitati ons 35140503 Active 2021 KAMILAH LOPEZ, FARMWORK[employer] [address] [place], [address] , [facility] 2 16:55:59 Supravent ricular tachycard ia 8534137 Active 2021 KAMILAH LOPEZ, [employer] [address] [place], [address] , [facility] 2 16:56:26 Tendiniti s of right forearm 09915784923 016990 Active 2022 BALA RAHMAN, PT [address] [place], [address] , [facility] 3 15:01:54 Atrophy of muscle of right shoulder 46893013599 9104 Active 2022 BALA RAHMAN, PT [address] [place], [address] , [facility] 3 15:01:58 Lateral epicondyl itis 161589677 Active 2022 BALA RAHMAN, PT [address] [place], [address] , [facility] 3 19:19:45 Spasm 16599135 Active 2022 BALA RAHMAN, PT [address] [place], [address] , [facility] 3 19:19:50 Melanocyt ic nevus of trunk 143253704 Active 2015 From Automated Load;Prov ider: Mery Isaacs;S tatus: Active Not Available [facility] 6 05:16:00 Acute sinusitis 55068035 Active 2015 From Automated Load;Prov ider: Shoaib Chauhan;Sta tus: Active Not Available [facility] 6 05:16:00 Sinusitis 11947616 Active 2015 From Automated Load;Prov ider: Shoaib Chauhan;Sta tus: Active Not Available [facility] 6 05:16:00 Vasomotor rhinitis 3995566 Active 2015 From Automated Load;Prov ider: Shoaib Chauhan;Sta tus: Active Not Available [facility] 6 05:16:00 Hypertrop hy of nasal turbinate s 69773116 Active 2015 From Automated Load;Prov ider: Shoaib Chauhan;Sta tus: Active Not Available [facility] 6 05:16:00 Pain in right knee Active 2014 From Automated Load;Prov ider: Low Peter;St atus: Active Not Available [facility] 6 05:16:00 Dyspnea 857053706 Active 2014 From Automated Load;Prov ider: Valarie Meyers;Sta tus: Active [facility] Available [facility] 6 05:16:00 Acquired trigger finger 2166247 Active 2014 From Automated Load;Prov ider: Graham Dykes;S tatus: Active Not Available [facility] 6 05:16:00 Idiopathi c osteoarth ritis 293385558 Active 2014 From Automated Load;Prov ider: Low Peter;St atus: Active Not Available [facility] 6 05:16:00 Insomnia 824890043 Active 2015 From Automated Load;Prov ider: Valarie Meyers;Sta tus: Active Not Available [facility] 6 05:16:00 Eczema 04915176 Active 2015 From Automated Load;Prov ider: Mery Isaacs;S tatus: Active Not Available [facility] 6 05:16:01 Senile hyperkera tosis 071195920 Active 2015 From Automated Load;Prov ider: Mery Isaacs;S tatus: Active Not Available [facility] 6 05:16:01 Lentigo Active 2015 From Automated Load;Prov ider: Mery Isaacs;S tatus: Active Not Available [facility] 6 05:16:01 Lateral epicondyl itis 752690064 Active 2014 From Automated Load;Prov ider: Graham Dykes;S tatus: Active Not Available [facility] 6 05:16:01 Obstructi ve sleep apnea syndrome 99299073 Active 2014 From Automated Load;Prov ider: Valarie Meyers;Sta tus: Active Not Available [facility] 6 05:16:01 Problem Notes None recorded. Procedures Surgical History Date Name Laterality Status Provider Name and Address Organization Details Recorded Time 025 Destruction [place] Lesion; trunk, arm, leg completed Steph Washington [facility] 01/30/2025 15:00:42 025 Biopsy Skin Lesion; Tangential completed LOUISE ROSS PA-C [address] [place], [address], [facility] 02/03/2025 19:43:10 025 Endoscopy Nasal; Diagnostic completed LAUREN GRIFFIN MD [address] [place], [address], [facility] 12/28/2024 14:10:00 025 Endoscopy Nasal; Biospy, Polypectomy or Debridement completed Laila Bhatia [facility] 11/27/2024 15:18:30 024 Stress Test - Nuclear completed YURY MORELAND MD [address] [place], [address], [facility] 08/09/2024 16:32:59 024 Biopsy Skin Lesion; Tangential completed Fernanda Matute [facility] 08/01/2024 15:29:33 024 EKG completed VENKATA MORRIS APRN [address] [place], [address], [facility] 07/06/2024 11:30:16 024 Synvisc One Injection completed Diana Maldonado [facility] 06/05/2024 11:20:07 024 Destruction Premalignant Lesion(s) completed Andreina Muse [facility] 01/30/2024 15:37:40 024 Synvisc One Injection completed Diana Maldonado [facility] 09/20/2023 15:05:25 024 Laryngoscopy Flex completed Vincent De La Rosa [facility] 09/08/2023 14:40:07 023 Destruction Premalignant Lesion(s) completed Andreina Muse [facility] 07/11/2023 14:11:59 023 Diffusion Capacity completed VALARIE MEYERS PA-C [address] [place], [address], [facility] 04/26/2023 16:53:09 023 Lung Volumes, Plethysmography completed VALARIE MEYERS PA-C [address] [place], [address], [facility] 04/26/2023 16:53:12 023 Spirometry completed VALARIE MEYERS PA-C [address] [place], [address], [facility] 04/26/2023 16:53:16 023 Tympanogram completed TAMIR PHAM, AUD [address] [place], [address], [facility] 02/11/2023 09:56:33 023 Audiogram completed TAMIR PHAM, AUD [address] [place], [address], [facility] 02/11/2023 09:56:25 023 [place]-Hallpike completed YURY OROZCO, FARMWORKER CRANBERRY [address] [place], [address], [facility] 02/11/2023 11:04:26 023 Cerumen removal - Instruments, Unilateral completed YURY OROZCO, FARMWORKER CRAN[employer]ERRY [address] [place], [address], [facility] 02/11/2023 11:04:16 023 Destruction Premalignant Lesion(s) completed Andreina Muse [facility] 01/06/2023 10:05:27 023 EKG completed VENKATA MORRIS, FARMWORKER CRANBERRY [address] [place], [address], [facility] 12/22/2022 12:14:26 023 PT Manual Therapy completed BALA RAHMAN, PT [address] [place], [address], [facility] 11/16/2022 13:59:41 023 PT Therapeutic Exercise completed BALA RAHMAN, PT [address] [place], [address], [facility] 11/16/2022 13:57:57 023 PT Ultrasound completed BALA RAHMAN, PT [address] [place], [address], [facility] 11/16/2022 13:59:49 023 PT Manual Therapy completed BALA RAHMAN, PT [address] [place], [address], [facility] 11/08/2022 19:18:33 023 PT Therapeutic Exercise completed BALA RAHMAN, PT [address] [place], [address], [facility] 11/08/2022 19:15:09 023 PT Ultrasound completed BALA RAHMAN, PT [address] [place], [address], [facility] 11/08/2022 19:18:24 023 PT Evaluation - Low Complexity completed BALA RAHMAN, PT [address] [place], [address], [facility] 10/20/2022 14:53:00 023 PT Therapeutic Exercise completed BALA RAHMAN, PT [address] [place], [address], [facility] 10/20/2022 14:53:28 023 Endoscopy Nasal; Diagnostic completed Sherie Hudson [facility] 09/02/2022 11:51:54 022 Destruction BN Lesions completed Aleshia [facility] 07/05/2022 11:04:13 022 Destruction MN Lesion; trunk, arm, leg completed Aleshia [facility] 03/31/2022 16:29:14 017 Review of Med Recs/Compl forms [facility] 12:14:00 017 Endoscopy Nasal; Diagnostic completed Angella [facility] 01/06/2017 09:51:33 017 Endoscopy Nasal; Biospy, Polypectomy or Debridement [facility] 12/01/2016 13:51:14 017 [facility]oscopy [facility] 11/10/2016 11:32:31 017 Review of Med Recs/Compl forms [facility] 11/10/2016 11:27:30 017 Endoscopy Nasal; Biospy, Polypectomy or Debridement completed Maria Ines Stiles [facility] 11/04/2016 13:17:46 017 PT Therapeutic Exercise completed BALA RAHMAN, PT [address] [place], [address], [facility] 10/05/2016 14:10:15 017 PT Therapeutic Exercise completed BALA RAHMAN, PT [address] [place], [address], [facility] 09/29/2016 12:33:26 017 PT Evaluation - Low Complexity completed BALA RAHMAN, PT [address] [place], [address], [facility] 09/29/2016 12:33:09 017 Endoscopy Nasal; Biospy, Polypectomy or Debridement completed Sherie Hudson [facility] 09/23/2016 13:58:53 Imaging Results None recorded. Procedure Notes None recorded. Medical Equipment None Reported. Allergies Allergen ID Allergen Name Allergen Category Reaction Reaction Severity Criticality Documentation Date Start Date Code Code System Note Provider Name and Address Organization Details Recorded Time 268526 prednison e medicatio n Not available Not available Not available 07/22/20162009 8640 RxNorm Mary sanches [facility] 8 10:24:29 975701 clindamyc in hydrochlo ride medicatio n nausea Not available Not available 07/22/20162012 90846 RxNorm Candace sanches [facility] 7 09:10:31 174327 vancomyci n hydrochlo ride medicatio n Not available Not available Not available 07/22/20162012 63124 RxNorm Candace Richardso n [facility] 7 09:11:12 280489 acetamino phen / hydrocodo ne medicatio n nausea severe Not available 07/22/20162010 71446 2 RxNorm React ion: NAUSE A;Sev erity : Sever e; Comme nt: Creat ed By: Jennifer fernandez Date: 2010 4:54: 20 PM; Not Available [facility] 6 10:18:05 818761 Substance with prostagla ndin-endo peroxide synthase isoform 2 inhibitor mechanism of action (substanc e) Not available other Not available Not available 07/22/20162009 43790 0005 SNOMED Comme nt: CAUSE ULCER S Candace Brown mere [facility] 7 09:10:42 113150 Substance with sulfonami de structure and antibacte rial mechanism of action (substanc e) medicatio n Not available Not available Not available 07/22/20162006 44695 8003 SNOMED Candace Brown mere [facility] 7 09:11:08 063824 Reglan medicatio n Not available Not available Not available 07/22/20162009 9230 RxNorm Mary Cevallos [facility] 4 10:03:21 496699 Cymbalta medicatio n Not available Not available Not available 07/22/20162010 97768 4 RxNorm Candace Brown mere [facility] 7 09:10:46 740327 gabapenti n medicatio n rash Not available Not available 07/22/20162012 73262 RxNorm Candace Brown mere [facility] 7 09:10:51 628602 Medrol medicatio n rash Not available Not available 07/22/20162014 73700 2 RxNorm Mary Cevallos [facility] 8 10:24:22 013006 codeine medicatio n Not available Not available Not available 07/22/20162006 2670 RxNorm Candace Brown mere [facility] 7 09:10:34 955599 Biaxin medicatio n other Not available Not available 07/22/20162006 9 RxNorm Comme nt: PT ON RELPA X SHOUL D NOT TAKE BIAXI N WITH THIS DRUG Candace Brown n [facility] 7 09:10:23 010038 midazolam hydrochlo ride medicatio n Not available Not available Not available 07/22/2016201312 8 RxNorm Candace Brown n [facility] 7 09:11:14 818010 acetamino phen / hydrocodo ne medicatio n nausea Not available Not available 07/23/2016201218 2 RxNorm Candace Brown n [facility] 7 09:10:55 691336 Cipro medicatio n abdominal pain Not available Not available 02/13/201817713 3 RxNorm Mary Ban [facility] 8 10:25:49 707016 Topamax medicatio n Not available Not available Not available 12/14/202167305 3 RxNorm Margarita Cole [facility] 2 11:53:05 318407 Non-stero idal anti-infl ammatory agent (product) medicatio n Not available Not available Not available 12/14/2021 21032 005 SNOMED Margaritayuriy Cole [facility] 2 11:53:13 464737 amoxicill in medicatio n Not available Not available Not available 09/12/2024 723 RxNorm Notif ied of aller gy 09/12 Ginny Hernández [facility] 5 15:26:18 900752 lidocaine medicatio n rash Not available Not available 11/27/2024 6387 RxNorm decli gideon topic al lidoc carleen due to rash/ burni ng Jeny Stone [facility] 5 15:04:06 Medications Name Sig Start Date [...] TIMES PER DAY 1-2 WEEKS UNTIL POISON HESHAM RESOLVES 2024 active Not Available Not Available [...] Not Available gentamici n 01/06 completed with [email or web address] de for nasal lavage Not Available Not Available [...] Available Not Available Not Available Fluarix Quad 6882-8600 (PF) 60 mcg (15 mcg x 4)/0.5 mL IM syringe 08/24 completed Not Available Not Available Not Available Soliqua 100/33 100 unit-33 mcg/mL subcutane ous insulin pen 09/02 completed Not Available Not Available Not Available Fluad 65yr up(PF)45 mcg(15 mcgx3)/0. 5 mL intramusc [...] Available Not Available No t Available Vitals None Recorded 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 Question Answer Notes LastModified by Organizat ion Details LastModified Time Tobacco Smoking Status Never Smoker Patricia sanches [facility] 08/24/2016 13:57:44 What Is Your Level Of Caffeine Consumption? Occasional Information not available 10/31/2017 How Much Tobacco Do You Chew? None [email or web address] Information not available 11/05/2020 Which Of Your [...] How Many Children Do You Have? 4 Information not available 11/19/2021 What Is Your Relationship Status? [email or web address] Information not available 11/19/2021 How Much Tobacco Do You Smoke? No [email or web address] Information not available 11/05/2020 Has Tobacco Cessation Counseling Been Provided? No [email or web address] Information not available 12/22/2022 How Many Years Have You Smoked Tobacco? 0 [email or web address] Information not available 11/05/2020 Have You Recently Traveled Abroad? No [email or web address] Information not available 11/19/2021 Sex: Female Functional Status Question Answer Note LastModified by Organizat ion Details LastModified Time Do you use any illicit or recreational drugs? No Information not available 10/31/2017 Do you or have you ever used any other forms of tobacco or nicotine? No Information not available 06/30/2022 What is your level of alcohol consumption? Occasional one glass of wine daily [email or web address] Information not available 11/05/2020 Do you or have you ever used smokeless tobacco? Never used smokeless tobacco [email or web address] Information not available 11/05/2020 Are you currently employed? 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 Never used electronic cigarettes [email or web address] Information not available 11/05/2020 What is your [...] Stomach trouble N Ulcers Y Heart Attack ([place]) N Diabetes Y Rheumatic Fever N Bleeding [...] 30 mcg/0.3 mL dose 09/25/2020 completed Marino Hernandez [facility] 12/11/2024 15:52:44 COVID-19, mRNA, LNP-S, PF, 30 mcg/0.3 mL dose 10/21/2020 completed Marino David [facility] 12/11/2024 15:52:44 COVID-19, mRNA, LNP-S, PF, 30 mcg/0.3 mL dose 06/11/2021 completed Marino Hernandez [facility] 12/11/2024 15:52:44 Past Encounters Encounter ID Performer Location Encounter Start Date Encounter Closed Date Diagnosis/Indication Diagnosis SNOMED-CT Code Diagnosis ICD10 Code Diagnosis Note [id number] VENKATA MORRIS APRN CARDIOLOG Y [address] [place] [address] 01/25/2025 12:36:16 01/25/2025 13:52:07 Coronary arteriosclerosis 92830275 I25.10 CCTA done at [facility] gat ston score = 161Left Main: CAD-RADS [...] mo for ongoing management Supraventr icular tachycardia 7987487 I47.10 Stable. No evidence of recurrence most recent heart monitor. continue with BB. Obstructiv e sleep apnea syndrome 47485229 G47.33 Not currently treating Hypertensive disorder 38 759486 I10 Stable.Low sodium diet. Type 2 dereje betes mellitus 06491559 E11.9 PCP monitoring . Hyperlipidemia 02526084 E78.5 Notes she cannot take statin, notes it caused peripheral neuropathy Discussed importance of tight control of lipids d/t Hx of CADLDL goal < 55, consider PSCK9-I if not attained given her history of non-obs CADPrimary care monitoring [id number] LOUISE ROSS PA-C [facility] [address] [place] [address] 01/30/2025 14:03:50 01/30/2025 16:47:15 History of squamous cell carcinoma of skin 668512975 Z85.828 L posterior leg s/p MohsL calf s/p EDC 2021 No EOR, will continue to monitor History of malignant basal cell neoplasm of skin 920009919 Z85.828 L clavicle s/p EDC - No EOR, continue to monitor History of squamous cell carcinoma in situ 6326887334 9105 Z86.008 L shoulder s/p EDC - No EOR, continue to monitor History of actinic keratosis 0277977206 104 Z87.2 Previously treated with cryotherap y and 5FU topical cream Solar lentiginosis 07008 2007 L81.4 Benign reassuranc e Raised panchito orrheic keratosis 8893357931 04327 L82.1 Benign reassuranc e Hemangioma 337268107 D18 .00 Benign reassuranc e Multiple b enign melanocytic nevi 290391274 D22.9 Benign reassuranc e Pilar cyst of scalp 4011 49647 L72.11 Benign reassuranc eShe states they have grown but she does not want to have them excised at this time. 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 Regular self-skin exams recommende d. Pt encouraged to RTC with any new/changi ng lesions. Allergic c ontact dermatitis caused by urushiol from [place] poison hesham 723413731 L23.7 She has used clobetasol in the past w/ benefit Neoplasm o f uncertain behavior of skin 88311758 D48.5 a. left proximal lateral upper arm r/o SCC - ED&C todayb. 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 656918900 C44.629 left proximal lateral upper armClinica l SCCTreated with ED&C x3 todaySee procedure noteWill recheck at 6 mo f/up sooner if patient notices any regrowth Health Concerns Section Related Observation LastModified by Organization Detai ls LastModified Time None Recorded Concern Status LastModified by Organization Details LastModified Time None Recorded Payers Encounter Date Sequence Insurance Name Policy Number Policy Salcido Covered Member ID Salcido Member ID Guarantor Name 01/30/2025 1 [place] Candace Melgozamack [id number] Candace Joyner Manny 01/30/2025 2 AARP (MEDICARE SUPPLEMENT) Candace Joyner Manny [id number] Candace Melgozamack Notes Date Note Type Note Provider Name and Address Organization Details Recorded Time 01/30/2025 text/html Established patient Patient presents to clinic today for 6 month FSE due to history of SCC, BCC, SCCIS, and AKs. Patient states she has a lesion on her L upper arm that she noticed about a month ago. She has several hard spots on legs that she noticed 09/22. She would like to discuss a refill for Clobetasol for her poison hesham on her R arm, upper back. Denies any other new, changing, or bleeding lesions, or other rashes, feels well, presents in a good mood, and has a positive family history of melanoma (sister). RAKESH NGUYENC [address] [place], [id number], [facility] 02/03/2025 19:46:23 OBGyn Episode No OBEpisode recorded.
--- OUTSIDE RECORDS SUMMARY | 2025-03-01 10:31 | XMS_ITS | Data Portability ---
Author Organization 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 *Daughter passed in October 2019 from metastatic SCC pelvis* Daughter lives in [facility], Son in law is a ship pilot, has 3 grandchildren [email or web address] Not available 02/03/2025 19:45:44 Plan of Treatment Reminders Order Date Submit Date Provider Last Modified By Organization Details Last Modified Time Details Appointments RECHECK 2024 11:10A M LAUREN GRIFFIN MD Not available Not available Not available ESTABLISH ED PT VISIT 2024 02:45P Latanya ROSS PA-C Not available Not available Not available RECHECK 2025 11:45A M VENKATA MORRIS PRIVATE BANKER Not available Not available Not available Lab surgical pathology study 2024 025 [facility], [address] [place], [address], 02/01/2025 16:09:08 culture, bacterial 2024 025 [facility], [address] [place], [address], 11/28/2024 09:49:01 Referral physical therapist referral 2024 025 [email or web address] [facility], [address], [place], [address], 12/28/2024 15:45:18 pain managemen t referral 2024 025 Flor Alcala MD, [address] [place], [address], 12/12/2024 08:51:20 Procedures None recorded. Surgeries None recorded. Imaging None recorded. Medication Orders clobetaso l 0.05 % topical cream 2024 025 [facility], [address], [address], [place], [address], 01/30/2025 16:58:32 budesonid e 0.5 mg/2 mL suspensio n for nebulizat ion 2024 025 [facility] [address], [place], [address], 01/25/2025 13:46:39 Compound Gentamici n 80 mg - Mupirocin 20 mg - Budesonid e 1 mg capsules #60 2024 [address]25 [email or web address] [facility] [place], [facility] [place], [address], 01/25/2025 13:25:55 Patient TargetsNo targets recorded. Patient Instructions Encounter Date Encounter Id Patient Instructions Last Modified By Organization Details Last Modified Time 11/27/2024 [id number] 1. Nasal Endosco py w/debridement performed in office today. Full risks, complications, and benefits of non-operative intervention have been thoroughly discussed. Understanding was expressed, informed consent given, and we will proceed with the discussed operative treatment plan. There were no questions for me at the end of the office visit. 2. Begin new RX- Compound Gentamicin 80 mg - Mupirocin 20 mg - Budesonide 1 mg Empty contents of 1 capsule into irrigation device, add distilled water, irrigate twice daily 3. Routine culture obtained today in office 4. Hold Felix's solution and Azelastine until infection is improved 5. Defer oral antibiotics, topical is preferred 6. Consider future CT sinus if no improvement in symptoms 7. F/u with culture results [email or web address] Not available 11/27/2024 15:18:16 former patient o f Dr. SUMMERS with long history of left sinus problems; endoscopically debrided large amount of purulent drainage and crusting from left side of nose; culture taken; will start her antibiotic/steroid/ saline rinse from [facility]; was using Felix's solution prior to this; can stop azelastine; follow up in four weeks to check her progress; may consider atrovent for her chronic rhinitis issues if infection is cleared up [email or web address] Not available 11/27/2024 15:22:25 12/28/2024 [id number] 1. Nasal Endosco py performed in office today. Full risks, complications, and benefits of non-operative intervention have been thoroughly discussed. Understanding was expressed, informed consent given, and we will proceed with the discussed operative treatment plan. There were no questions for me at the end of the office visit. 2. Continue using medicated nasal rinse daily for 3 weeks 3. Rx- budesonide 1 mg/2 mL suspension for nebulization: Empty contents of one ampule into Netiflo, add distilled water and irrigate BID 4. F/u in 3 months [email or web address] Not available 12/28/2024 14:05:06 former patient o f Dr. SUMMERS with long history of left sinus problems; dealing with left sided crusting and infection for 7 years; endoscopically debrided large amount of purulent drainage and crusting from left side of nose last visit; culture showed staph; doing much better since completing antibiotic steroid saline rinse; endoscopy today shows the expected ESS changes but infection resolved; will do the antibiotic rinse for another three weeks out of an abundance of caution then transition to budesonide rinse; follow up in three weeks to check her progress [email or web address] Not available 12/28/2024 14:11:54 01/25/2025 [id number] supraventricular tachycardia: care instructions Not available 01/25/2025 15:29:58 high blood pressure: care instructions Not available 01/25/2025 15:29:58 high cholesterol : care instructions Not available 01/25/2025 15:29:58 coronary artery disease: care instructions Not available 01/25/2025 15:29:58 01/30/2025 [id number] Education/alt/ri sks /benefits/SE of Dx & Tx discussed. Daily UV protection with broad-spectrum SPF 30+ on exposed areas recommended. Pt encouraged to RTC with any new/changing lesions. Not available 01/30/2025 08:26:58 Reason for Referral Physical Therapist Referral for Pain in left sacroiliac joint Referring Physician: Neil Lang, Orthopedic Surgery, Encounter Date: 12/11/2024 Pain Management Referral for Pain in left sacroiliac joint Left SI joint evaluation and treatment, possible SI joint injection Referring Physician: Neil Lang, Orthopedic Surgery, Encounter Date: 12/11/2024 Results Created Date Observation Date Name Description Value Unit Range Abnormal Flag Note LastModifiedBy Organization Detail LastModifiedTime 11/28/1911/27/2024 TINA KIM staphylococc us aureus Organi sm: Staphy lococc us aureus Not Available [facility] [address], [place], [address], 11/29/2024 13:17:26 11/28/1911/29/2024 CULTU RE, ROUTI NE culture, routine abnormal ISOLA TE #1 Moder ate Proba ble Staph yloco ccus sp.; ID and sensi tivit y in progr ess. See [place] te Resul t(s) Below Staph yloco ccus aureu s Not Available [facility] [address] [place] [address], [address], 11/29/2024 13:17:26 11/28/19 25 11/29/2024 CULTU RE, ROUTI NE amox/K clav'ate(C) <=4/2 ug/mL susceptib le Not Available [facility] [address] [place] [address], [address], 11/29/2024 13:17:26 11/28/19 25 11/29/2024 CULTU RE, ROUTI NE amp/sulbacta m(C) <=8/4 ug/mL susceptib le Not Available [facility] [address] [place] [address], [address], 11/29/2024 13:17:26 11/28/19 25 11/29/2024 CULTU RE, ROUTI NE cefazolin <=8 ug/mL susceptib le Not Available [facility] [address] [place] [address], [address], 11/29/2024 13:17:26 11/28/19 25 11/29/2024 CULTU RE, ROUTI NE cefoxitin screen <=4 ug/mL negative Not Available [facility] [address] [place] [address], [address], 11/29/2024 13:17:26 11/28/19 25 11/29/2024 CULTU RE, ROUTI NE ciprofloxaci n <=1 ug/mL susceptib le Not Available [facility] [address] [place] [address], [address], 11/29/2024 13:17:26 11/28/19 25 11/29/2024 CULTU RE, ROUTI NE clindamycin <=0.25 ug/mL susceptib le Not Available [facility] [address] [place] [address], [address], 11/29/2024 13:17:26 11/28/19 25 11/29/2024 CULTU RE, ROUTI NE erythromycin <=0.5 ug/mL susceptib le Not Available [facility] [address] [place] [address], [address], 11/29/2024 13:17:26 11/28/19 25 11/29/2024 CULTU RE, ROUTI NE gentamicin <=4 ug/mL susceptib le Not Available [facility] [address] [place] [address], [address], 11/29/2024 13:17:26 11/28/19 25 11/29/2024 CULTU RE, ROUTI NE levofloxacin <=1 ug/mL susceptib le Not Available [facility] [address] [place] [address], [address], 11/29/2024 13:17:26 11/28/19 25 11/29/2024 CULTU RE, ROUTI NE oxacillin <=0.25 ug/mL susceptib le Not Available [facility] [address] [place] [address], [address], 11/29/2024 13:17:26 11/28/19 25 11/29/2024 CULTU RE, ROUTI NE rifampin <=1 ug/mL susceptib le Not Available [facility] [address] [place] [address], [address], 11/29/2024 13:17:26 11/28/19 25 11/29/2024 CULTU RE, ROUTI NE tetracycline <=4 ug/mL susceptib le Not Available [facility] [address] [place] [address], [address], 11/29/2024 13:17:26 11/28/19 25 11/29/2024 CULTU RE, ROUTI NE trimeth/sulf a <=0.5/ 9.5 ug/mL susceptib le Not Available [facility] [address] [place], [address], 11/29/2024 13:17:26 11/28/19 25 11/29/2024 CULTU RE, ROUTI NE vancomycin 1 ug/mL susceptib le Not Available [facility] [address] [place], [address], 11/29/2024 13:17:26 01/31/20 25 01/30/2025 SURGI URIAH surgical SEE BELOW abnormal Surgi uriah Patho logy Repor t NAME: CANDACE DUMONT PATH: [id number] DATE of : 05/01 30 [id number] Copy to: Diagn osis: A) Left proxi mal later al upper arm: Squam ous cell carci noma, well diffe renti ated; incom plete ly excis ed. Note: Tumor abuts the inked deep kieran n of the biops y speci men. Clini uriah histo ry of elect david iccat ion and curet tage. B) Left dista l preti bial maicas: Benig n kerat osis. SOURC E OF SPECI MEN: SKIN BIOPS Y, LEFT PROXI MAL LATER AL UPPER ARM SKIN BIOPS Y, LEFT DISTA L PRETI BIAL [facility] URIAH INFOR MATIO N: D48.5 A) R/O SCC - ED&C TODAY B) R/O SCC vs ISK - PARTI AL SAMPL E OF LARGE R LESIO N Gross Descr iptio n: A) Patie nt name and date of verif ied. Recei bindu in forma megan label ed with the patie nt's name and desig nated left proxi mal later al upper arm is a shave biops y of skin (0.9 x 0.9 x 0.2 cm). The epide rmal surfa ce is medley- white , waxy, nodul ar and ulcer ated. The kieran n is inked blue. The speci men is quadr isect ed and entir iván submi tted in one casse tte label ed A1. B) Malika nt name and date of verif ied. Recei bindu in forma megan label ed with the malika nt's name and desig nated left dista l preti bial macias is a shave biops y of skin (0.6 x 0.6 x 0.1 cm). The epide rmal surfa ce is medley- white and scaly . The kieran n is inked blue. The speci men is trise cted and entir iván submi tted in one casse tte label ed B1. MT 01/31 09:42 AM Micro scopi c Descr iptio n: A micro scopi c exami natio n has been perfo rmed and the resul t(s) are as noted above . ARABELLA KONG MD Kelly d Out Date: 02/01 16:08 Page 1 of 1 Not Available [facility] [address] [place], [address], 02/01/2025 16:09:07 12/12/19 25 12/11/2024 XR, hip, unila teral , 2 or 3 view [facility] [address] [facility], [place] [address] Patien t Name: CANDACE Mclain Patiyumiko t : [birth year] Patien t 0 Orderi ng Provid er: NEIL LANG EXAM DATE: 2024 EXAM: XR LT HIP UNILAT ERAL, 2 OR 3 VWS COMPAR JAVON: None. HISTOR Y: Left hip pain. FINDIN GS: No fractu re is identi fied. There are modera te degene rative change s in the left hip. There is mild joint space loss. There is modera te margin al spurri ng. Limite d visual izatio n of the contra latera l hip demons trates modera te degene rative change . IMPRES JUAN A: 1. There are modera te degene rative change s in the left hip. Interp reted By: Cooper barnett MD Electr onical ly Signed By: Cooper barnett MD on 025 4:27 PM [email or web address] [facility] [place] [address] , [place], [address], 12/12/2024 08:13:08 Result Notes Documentation Provider Name and Address Organization Details Recorded Time Xr, Hip, Unilateral, 2 Or 3 View : [facility] [place] [address] [place] [address] Patient Name: CANDACE BRYANT Patient : [id number] Patient Ordering Provider: NEIL LANG EXAM DATE: 12/11/2024 EXAM: XR LT HIP UNILATERAL, 2 OR 3 VWS COMPARISON: None. HISTORY: Left hip pain. FINDINGS: No fracture is identified. There are moderate degenerative changes in the left hip. There is mild joint space loss. There is moderate marginal spurring. Limited visualization of the contralateral hip demonstrates moderate degenerative change. IMPRESSION: 1. There are moderate degenerative changes in the left hip. Interpreted By: Lazarus Dalal MD LANG PA-C [address] [place], [address], [facility] 12/12/2024 08:13:08 Problems Name Problem SNOMED Code Status Onset Date Resolution Date Notes Provider Name and Address Organization Details Recorded Time Low back pain 207698749 Active 2016 BALA RAHMAN, PT [address] [place], [address] , [facility] 7 12:34:12 Abnormal posture 78114970 Active 2016 BALA RAHMAN, PT [address] [place], [address] , [facility] 7 12:34:14 Muscle weakness 17386722 Active 2016 BALA RAHMAN, PT [address] [place], [address] , [facility] 7 12:34:15 Lumbar spine stiff 242600584 Active 2016 BALA RAHMAN, PT [address] [place], [address] , [facility] 7 12:34:16 Nasal polyp Active 2015 From Automated Load;Prov ider: Shoaib Chauhan;Sta tus: Active Not Available [facility] 7 06:09:08 Contusion of rib 453490551 Active 2017 BALA RAHMAN, PT [address] [place], [address] , [facility] 8 18:42:00 Stiff back 606973532 Active 2017 BALA RAHMAN, PT [address] [place], [address] , [facility] 8 18:42:01 Rib pain 024030840 Active 2017 BALA RAHMAN, PT [address] [place], [address] , [facility] 8 18:42:03 Infection of sebaceous cyst 826654843 Active 2017 left thigh Lilli Graves [facility] 8 14:27:30 Osteoarth ritis of joint of hand 31090955 Active 2019 BALA RHAMAN, PT [address] [place], [address] , [facility] 0 19:51:53 Pain in right hand 50064568390 9109 Active 2019 BALA RAHMAN, PT [address] [place], [address] , [facility] 0 19:51:55 Stiffness of joint of right hand 80781482570 9106 Active 2019 BALA RAHMAN, PT [address] [place], [address] , [facility] 0 19:51:57 Contractu re of joint of finger of left hand due to scar 56611884461 306450 Active 2019 BALA RAHMAN, PT [address] [place], [address] , [facility] 0 17:06:15 Thumb joint stiff 337158436 Active 2019 BALA RAHMAN, PT [address] 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, [address] , [facility] 0 18:53:50 Essential hypertens ion 90561936 Active 2021 KAMILAH LOPEZ, PRIVATE BANKER [address] [place], [address] , [facility] 2 16:55:28 Type 2 diabetes mellitus 96501584 Active 2021 KAMILAH LOPEZ, PRIVATE BANKER [address] [place], [address] , [facility] 2 16:55:41 Palpitati ons 48591391 Active 2021 KAMILAH LOPEZ, PRIVATE BANKER [address] [place], [address] , [facility] 2 16:55:59 Supravent ricular tachycard ia 9047574 Active 2021 KAMILAH LOPEZ, PRIVATE BANKER [address] [place], [address] , [facility] 2 16:56:26 Tendiniti s of right forearm 93246906431 844247 Active 2022 BALA RAHMAN, PT [address] [place], [address] , [facility] 3 15:01:54 Atrophy of muscle of right shoulder 23860701351 9104 Active 2022 BALA RAHMAN, PT [address] [place], [address] , [facility] 3 15:01:58 Lateral epicondyl itis 915459643 Active 2022 BALA RAHMAN, PT [address] [place], [address] , [facility] 3 19:19:45 Spasm 62058889 Active 2022 BALA RAHMAN, PT [address] [place], [address] , [facility] 3 19:19:50 Melanocyt ic nevus of trunk 575255743 Active 2015 From Automated Load;Prov ider: Devon Isaacs;Frankie tatus: Active Not Available [facility] 6 05:16:00 Acute sinusitis 97559378 Active 2015 From Automated Load;Prov ider: Shoaib Chauhan;Sta tus: Active Not Available [facility] 6 05:16:00 Sinusitis 84942772 Active 2015 From Automated Load;Prov ider: Shoaib Chauhan;Sta tus: Active Not Available [facility] 6 05:16:00 Vasomotor rhinitis 6683233 Active 2015 From Automated Load;Prov ider: Shoaib Chauhan;Sta tus: Active Not Available [facility] 6 05:16:00 Hypertrop hy of nasal turbinate s 21434571 Active 2015 From Automated Load;Prov ider: Shoaib Chauhan;Sta tus: Active Not Available [facility] 6 05:16:00 Pain in right knee Active 2014 From Automated Load;Prov ider: Nevaeh Pa;St atus: Active Not Available [facility] 6 05:16:00 Dyspnea 202564198 Active 2014 From Automated Load;Prov ider: Valarie Meyers;Sta tus: Active Not Available [facility] 6 05:16:00 Acquired trigger finger 5259209 Active 2014 From Automated Load;Prov ider: Graham Dykes;S tatus: Active Not Available [facility] 6 05:16:00 Idiopathi c osteoarth ritis 814932098 Active 2014 From Automated Load;Prov ider: Nevaeh Pa;St atus: Active Not Available [facility] 6 05:16:00 Insomnia 435780224 Active 2015 From Automated Load;Prov ider: Valarie Meyers;Sta tus: Active Not Available [facility] 6 05:16:00 Eczema 47266626 Active 2015 From Automated Load;Prov ider: Devon Isaacs;S tatus: Active Not Available [facility] 6 05:16:01 Senile hyperkera tosis 337543679 Active 2015 From Automated Load;Prov ider: Devon Isaacs;S tatus: Active Not Available [facility] 6 05:16:01 Lentigo Active 2015 From Automated Load;Prov ider: Devon Isaacs;S tatus: Active Not Available [facility] 6 05:16:01 Lateral epicondyl itis 740077047 Active 2014 From Automated Load;Prov ider: Graham Dykes;S tatus: Active Not Available [facility] 6 05:16:01 Obstructi ve sleep apnea syndrome 60685565 Active 2014 From Automated Load;Prov ider: Valarie Meyers;Sta tus: Active Not Available [facility] 6 05:16:01 Problem Notes None recorded. Procedures Surgical History Date Name Laterality Status Provider Name and Address Organization Details Recorded Time 025 Destruction [place] Lesion; trunk, arm, leg completed Steph Washington [facility] 01/30/2025 15:00:42 06/04/2 025 Biopsy Skin Lesion; Tangential completed LOUISE ROSS PA-C [address] [place], [address], [facility] 02/03/2025 19:43:10 025 Endoscopy Nasal; Diagnostic completed LAUREN GRIFFIN MD [address] [place], [address], [facility] 12/28/2024 14:10:00 025 Endoscopy Nasal; Biospy, Polypectomy or Debridement completed Laila Bhatia [facility] 11/27/2024 15:18:30 024 Stress Test - Nuclear completed YURY MORELAND MD [address] [place], [address], [facility] 08/09/2024 16:32:59 024 Biopsy Skin Lesion; Tangential completed Fernanda Matute [facility] 08/01/2024 15:29:33 024 EKG completed VENKATA MORRIS APRN [address] [place], [address], [facility] 07/06/2024 11:30:16 024 Synvisc One Injection completed Soni Maldonado [facility] 06/05/2024 11:20:07 024 Destruction Premalignant Lesion(s) completed Andreina Muse [facility] 01/30/2024 15:37:40 024 Synvisc One Injection completed Soni Maldonado [facility] 09/20/2023 15:05:25 024 Laryngoscopy Flex completed Vincent De La Rosa [facility] 09/08/2023 14:40:07 023 Destruction Premalignant Lesion(s) completed Andreina Muse [facility] 07/11/2023 14:11:59 023 Diffusion Capacity completed VALARIE MEYERS PA-C [address] [place], [address], [facility] 04/26/2023 16:53:09 023 Lung Volumes, Plethysmography completed VALARIE MEYERS PA-C [address] [place], [address], [facility] 04/26/2023 16:53:12 023 Spirometry completed VALARIE MEYERS PA-C [address] [place], [address], [facility] 04/26/2023 16:53:16 023 Tympanogram completed TAMIR PHAM, AUD [address] [place], [address], [facility] 02/11/2023 09:56:33 023 Audiogram completed TAMIR PHAM, AUD [address] [place], [address], [facility] 02/11/2023 09:56:25 023 Louise-Hallpike completed YURY OROZCO, PRIVATE BANKER [address] [place], [address], [facility] 02/11/2023 11:04:26 023 Cerumen removal - Instruments, Unilateral completed YURY OROZCO, PRIVATE BANKER [address] [place], [address], [facility] 02/11/2023 11:04:16 023 Destruction Premalignant Lesion(s) completed Andreina Muse [facility] 01/06/2023 10:05:27 023 EKG completed VENKATA MORRIS, PRIVATE BANKER [address] [place], [address], [facility] 12/22/2022 12:14:26 023 PT Manual Therapy completed BALA RAHMAN, PT [address] [place], [address], [facility] 11/16/2022 13:59:41 023 PT Therapeutic Exercise completed BALA RAHMAN, PT [address] [facility] [place], [address], [facility] 11/16/2022 13:57:57 023 PT Ultrasound completed BALA RAHMAN, PT [address] [place], [address], [facility] 11/16/2022 13:59:49 023 PT Manual Therapy completed BALA RAHMAN, PT [address] [place], [address], [facility] 11/08/2022 19:18:33 023 PT Therapeutic Exercise completed BALA RAHMAN, PT [address] [place], [address], [facility] 11/08/2022 19:15:09 023 PT Ultrasound completed BALA RAHMAN, PT [address] [place], [address], [facility] 11/08/2022 19:18:24 023 PT Evaluation - Low Complexity completed BALA RAHMAN, PT [address] [place], [address], [facility] 10/20/2022 14:53:00 023 PT Therapeutic Exercise completed BALA RAHMAN, PT [address] [place], [address], [facility] 10/20/2022 14:53:28 023 Endoscopy Nasal; Diagnostic completed Sherie Hudson [facility] 09/02/2022 11:51:54 022 Destruction BN Lesions completed Aleshia Saleh [facility] 07/05/2022 11:04:13 022 Destruction MN Lesion; trunk, arm, leg completed Aleshia Saleh [facility] 03/31/2022 16:29:14 017 Review of Med Recs/Compl forms [facility] 12:14:00 017 Endoscopy Nasal; Diagnostic completed Angella Aparicio [facility] 01/06/2017 09:51:33 017 Endoscopy Nasal; Biospy, Polypectomy or Debridement completed [facility] 12/01/2016 13:51:14 017 Nasopharyngoscopy completed [facility] 11/10/2016 11:32:31 017 Review of Med Recs/Compl forms completed [facility] 11/10/2016 11:27:30 017 Endoscopy Nasal; Biospy, Polypectomy or Debridement completed Maria Ines Wardd [facility] 11/04/2016 13:17:46 017 PT Therapeutic Exercise completed BALA RAHMAN, PT [address] [place], [address], [facility] 10/05/2016 14:10:15 017 PT Therapeutic Exercise completed BALA RAHMAN, PT [address] [place], [address], [facility] 09/29/2016 12:33:26 017 PT Evaluation - Low Complexity completed BALA RAHMAN, PT [address] [place], [address], [facility] 09/29/2016 12:33:09 017 Endoscopy Nasal; Biospy, Polypectomy or Debridement completed Sherie Hudson [facility] 09/23/2016 13:58:53 Imaging Results None recorded. Procedure Notes None recorded. Medical Equipment None Reported. Allergies Allergen ID Allergen Name Allergen Category Reaction Reaction Severity Criticality Documentation Date Start Date Code Code System Note Provider Name and Address Organization Details Recorded Time 772451 prednison e medicatio n Not available Not available Not available 07/22/20162009 8640 [facility] 10:24:29 093985 clindamyc in hydrochlo ride medicatio n nausea Not available Not available 07/22/20162012 09905 RxNorm Candace sanches [facility] 7 09:10:31 431992 vancomyci n hydrochlo ride medicatio n Not available Not available Not available 07/22/20162012 06490 RxNorm Candace severino [facility] 7 09:11:12 996724 acetamino phen / hydrocodo ne medicatio n nausea severe Not available 07/22/20162010 85265 2 RxNorm React ion: NAUSE A;Sev erity : Sever e; Comme nt: Creat ed By: Jennifer fernandez Date: 2010 4:54: 20 PM; Not Available [facility] 6 10:18:05 194095 Substance with prostagla ndin-endo peroxide synthase isoform 2 inhibitor mechanism of action (substanc e) Not available other Not available Not available 07/22/20162009 92062 0005 SNOMED Comme nt: CAUSE ULCER S Candace Brown mere [facility] 7 09:10:42 028227 Substance with sulfonami de structure and antibacte rial mechanism of action (substanc e) medicatio n Not available Not available Not available 07/22/20162006 61084 8003 SNOMED Candace Brown mere [facility] 7 09:11:08 442661 Reglan medicatio n Not available Not available Not available 07/22/20162009 9230 RxNorm Mary Cevallos [facility] 4 10:03:21 283718 Cymbalta medicatio n Not available Not available Not available 07/22/20162010 89314 4 RxNorm Candace Brown mere [facility] 7 09:10:46 206052 gabapenti n medicatio n rash Not available Not available 07/22/20162012 89372 RxNorm Candace Brown mere [facility] 7 09:10:51 092579 Medrol medicatio n rash Not available Not available 07/22/20162014 2 RxNorm Mary Cevallos [facility] 8 10:24:22 368089 codeine medicatio n Not available Not available Not available 07/22/20162006 2670 RxNorm Candace severino [facility] 7 09:10:34 869866 Biaxin medicatio n other Not available Not available 07/22/2016200672 9 RxNorm Comme nt: PT ON RELPA X SHOUL D NOT TAKE BIAXI N WITH THIS DRUG Candace Brown n [facility] 7 09:10:23 626324 midazolam hydrochlo ride medicatio n Not available Not available Not available 07/22/2016201312 8 RxNorm Candace Brown n [facility] 7 09:11:14 063695 acetamino phen / hydrocodo ne medicatio n nausea Not available Not available 07/23/2016201218 2 RxNorm Candace Brown mere [facility] 7 09:10:55 247325 Cipro medicatio n abdominal pain Not available Not available 02/13/201853032 3 RxNorm Mary Ban [facility] 8 10:25:49 148524 Topamax medicatio n Not available Not available Not available 12/14/202138039 3 RxNorm Margaritayuriy Cole [facility] 2 11:53:05 937774 Non-stero idal anti-infl ammatory agent (product) medicatio n Not available Not available Not available 12/14/2021 37649 005 SNOMED Margarita Douglas [facility] 2 11:53:13 562548 amoxicill in medicatio n Not available Not available Not available 09/12/2024 723 RxNorm Notif ied of aller gy 09/12 Ginny Hernández [facility] 5 15:26:18 970197 lidocaine medicatio n rash Not available Not available 11/27/2024 6387 RxNorm decli gideon topic al lidoc carleen due to rash/ burni ng Jeny David [facility] 15:04:06 Medications Name Sig Start Date Stop [...] Not Available gentamici n 01/06 completed with budesoni de for nasal lavage Not Available Not [...] completed Not Available Not Available Not Available OneTothomas Zhu Lancets 33 gauge 08/10 completed Not Available [...] Available Not Available Not Available Fluarix Quad 5981-4331 (PF) 60 mcg (15 mcg x 4)/0.5 mL IM syringe 08/24 completed Not Available Not Available Not Available Soliqua 100/33 100 unit-33 mcg/mL subcutane ous insulin pen 09/02 completed Not Available Not Available Not Available Fluad 2017-18 65yr up(PF)45 mcg(15 mcgx3)/0. 5 mL intramusc ular syringe 10/31 completed Not Available Not Available Not Available Shingrix (PF) 50 mcg/0.5 mL intramusc ular suspensio n, kit ADM 0.5ML IM UTD 11/05 completed Not Available Not Available Not Available OneTouch Ultra Blue Test Strip 08/10 completed Not Available Not Available Not Available Fluzone High-Dose 7940-2531 (PF) 180 mcg/0.5 mL intramusc ular syringe [...] height Body mass index (BMI) Body weight Body temperature Heart rate Systolic And Diastolic Provider Name and Address Organization Details Last Updated DateTime 5 175.26 cm 24.7 kg/m2 45849.9 3 g 96.9 [degF] 80 /min 121/78 mm[Hg] Laliat Richard [facility] 5 14:55:03 Date Recorded Body height Body mass index (BMI) Body weight Provider Name and Address Organization Details Last Updated DateTime 12/11/2024 175.26 cm 24.7 kg/m2 85332.93 g Marino Hernandez [facility] 12/11/2024 15:16:39 Date Recorded Body height Body mass index (BMI) Body weight Body temperature Heart rate Systolic And Diastolic Provider Name and Address Organization Details Last Updated DateTime 175.26 cm 25.1 kg/m2 99841.1 g 97.4 [degF] 83 /min 128/71 mm[Hg] Oscar Ann [facility] 13:51:25 Date Recorded Body height Body mass index (BMI) Body weight Oxygen saturation Oxygen saturation in Arterial blood by Pulse oximetry Heart rate Systolic And Diastolic Provider Name and Address Organization Details Last Updated DateTime 175.26 cm 25.3 kg/m2 66800.3 g 95 % 95 % 78 /min 120/60 mm[Hg] Libertad Henriqueztree verito [facility] 13:24:53 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 Question Answer Notes LastModified by Organizat ion Details LastModified Time Tobacco Smoking Status Never Smoker Patricia Mirandaciara sanches [facility] 08/24/2016 13:57:44 What Is Your Level Of Caffeine Consumption? Occasional Information not available 10/31/2017 How Much Tobacco Do You Chew? None [email or web address] Information not available 11/05/2020 Which Of Your [...] How Many Children Do You Have? 4 [email or web address] Information not available 11/19/2021 What Is Your Relationship Status? [email or web address] Information not available 11/19/2021 How Much Tobacco Do You Smoke? No Information not available 11/05/2020 Has Tobacco Cessation Counseling Been Provided? No [email or web address] Information not available 12/22/2022 How Many Years Have You Smoked Tobacco? 0 Information not available 11/05/2020 Have You Recently Traveled Abroad? No Information not available 11/19/2021 Sex: Female Functional Status Question Answer Note LastModified by Organizat ion Details LastModified Time Do you use any illicit or recreational drugs? No Information not available 10/31/2017 Do you or have you ever used any other forms of tobacco or nicotine? No Information not available 06/30/2022 What is your level of alcohol consumption? Occasional one glass of wine daily [email or web address] Information not available 11/05/2020 Do you or have you ever used smokeless tobacco? Never used [email or web address] tobacco Information not available 11/05/2020 Are you currently employed? 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 Never used electronic cigarettes [email or web address] Information not available 11/05/2020 What is your [...] Emphysema N Hernia Y Esophagus/swallowing troubles N Depression N Lung Disease N Hypothyroidism N Glaucoma N Pneumonia Y Anesthesia Complications N Anxiety [...] Stomach trouble N Ulcers Y Heart Attack ([place]) N Diabetes Y Rheumatic Fever N Bleeding Disorder N Tuberculosis N AIDS/HIV N Hyperlipidemia Y Urinary Tract Infection Y Asthma N Epilepsy/Seizures N Basal Cell Carcinoma Y Reflux/GERD Y Sleep Apnea Y Sleep Disorder N Hepatitis N Included as Review of Systems Y Heart Disease Y Hypertension Y Gynecological HistoryNo gynecological history recorded. Obstetrics History GPAL:G 4 P 4 0 0 0 Type Value Full Term 4 Total 4 Immunizations Vaccine Type Date Status Note Provider Nam e and Address Organization Details Recorded Time COVID-19, mRNA, LNP-S, PF, 30 mcg/0.3 mL dose 09/25/[address] [facility] 12/11/2024 15:52:44 COVID-19, mRNA, LNP-S, PF, 30 mcg/0.3 mL dose 10/21/2020 completed Marino David [facility] 12/11/2024 15:52:44 COVID-19, mRNA, LNP-S, PF, 30 mcg/0.3 mL dose 06/11/[address] [facility] 12/11/2024 15:52:44 Past Encounters Encounter ID Performer Location Encounter Start Date Encounter Closed Date Diagnosis/Indication Diagnosis SNOMED-CT Code Diagnosis ICD10 Code Diagnosis Note [id number] MARC PATEL MD UROLOGY [address] [place] [address] 08/24/2016 13:16:43 08/25/2016 10:10:18 Abdominal pain 17284790 R10.9 Renal colic 8383810 N23 [id number] MD SULEIMAN LENZ [address]NT [address] [place] [address] 09/23/2016 13:08:02 09/23/2016 14:23:23 Hypertrophy of nasal turbinates 16048953 J34.3 Chronic sinusitis 076549 00 J32.9 - S/P Left ESS Obstructiv e sleep apnea of adult 5426172307 103 G47.33 Cyst of nasal sinus 8522 5000 J34.1 - left maxillary Acute sinusitis 85152439 J01.90 [id number] BALA RAHMAN, PT PHYSICAL THERAPY / [facility]APY [facility] [address] [address] 09/28/2016 10:32:24 09/30/2016 07:18:12 Low back pain 380953099 M54.5 Abnormal posture 9531316 2 R29.3 Muscle weakness 40656310 M62.81 Lumbar spine stiff 83540 6009 M25.60 [id number] BALA RAHMAN, PT PHYSICAL THERAPY / [facility]APY [facility] [address] [address] 10/05/2016 13:20:47 10/05/2016 15:10:07 Low back pain 530145825 M54.5 Lumbar spine stiff 79418 6009 M25.60 Abnormal posture 1643086 2 R29.3 Muscle weakness 38392110 M62.81 [id number] MD SULEIMAN LENZ ENT [address] [place] [address] 11/04/2016 12:39:55 11/04/2016 15:05:25 Chronic sinusitis 56313244 J32.9 - S/P Left ESS Acute sinusitis 11376891 J01.90 [id number] MD SULEIMAN LENZ ENT [address] [place] [address] 11/10/2016 10:12:59 11/10/2016 14:08:27 Chronic recurrent sinusitis 270348231 J32.9 status post revision left MMA, left ethmoidect cynthia, left NA window (limited medial maxillecto my), left SMR inferior turbinateC T sinus today shows mucosal thickening in left antrum and left sphenoid sinuses Nasal polyp 65443055 J33 .9 status post revision left MMA, left ethmoidect cynthia, left NA window (limited medial maxillecto my), left SMR inferior turbinate Hypertroph y of nasal turbinates 12558284 J34.3 status post revision left MMA, left ethmoidect cynthia, left NA window (limited medial maxillecto my), left SMR inferior turbinate Obstructiv e sleep apnea syndrome 64664850 G47.33 Vasomotor rhinitis 01893 03 J30.0 Infection by methicillin sensitive Staphylococcus aureus 368205774 A49.01 [id number] VALARIE MEYERS PA-C PULMONARY [address] [facility], [address] [place] [address] 11/22/2016 13:38:19 11/22/2016 16:15:42 Obstructive sleep apnea of adult 4539058730 103 G47.33 patient is compliant with CPAP. Her residual AHI is optimal. I will change CPAP pressure to 8 18 centimeter s H2O because she feels that the pressure is too low when she first puts on CPAP. Persistent hypersomnia 208290290 G47.19 Patient is having excessive daytime sleepiness with an [place] sleepiness scale score of 14. I highly recommende d that she be cautious while driving and to pullover when she is sleepy. She agrees. I will discuss this case with Dr. Tristan when he returns next week for further recommenda tions. She will continue CPAP at this time.she reports that she is no longer having difficulty falling asleep and is falling asleep within a few minutes at night. She has discontinu ed Rozerem. [id number] MD SULEIMAN LEZN ENT [address] [place] [address] 12/01/2016 13:10:29 12/01/2016 14:10:18 Chronic recurrent sinusitis 697190519 J32.9 status post revision left MMA, left ethmoidect cynthia, left NA window (limited medial maxillecto my), left SMR inferior turbinateC T sinus today shows mucosal thickening in left antrum and left sphenoid sinuses Nasal polyp 29141490 J33 .9 status post revision left MMA, left ethmoidect cynthia, left NA window (limited medial maxillecto my), left SMR inferior turbinate Hypertroph y of nasal turbinates 51907203 J34.3 status post revision left MMA, left ethmoidect cynthia, left NA window (limited medial maxillecto my), left SMR inferior turbinate Obstructiv e sleep apnea syndrome 83763721 G47.33 Vasomotor rhinitis 35045 03 J30.0 Infection by methicillin sensitive Staphylococcus aureus 616444855 A49.01 [id number] SHOAIB CHAUHAN MD PA ENT [address] [facility],[address] [place] [address] 01/06/2017 09:19:27 01/06/2017 11:13:26 Chronic recurrent sinusitis 130766166 J32.9 status post revision left MMA, left ethmoidect cynthia, left NA window (limited medial maxillecto my), left SMR inferior turbinate( see above notes) Nasal polyp 93839103 J33 .9 status post revision left MMA, left ethmoidect cynthia, left NA window (limited medial maxillecto my), left SMR inferior turbinate Hypertroph y of nasal turbinates 79966925 J34.3 status post revision left MMA, left ethmoidect cynthia, left NA window (limited medial maxillecto my), left SMR inferior turbinate Obstructiv e sleep apnea syndrome 96006464 G47.33 Vasomotor rhinitis 79925 03 J30.0 Infection by methicillin sensitive Staphylococcus aureus 361235143 A49.01 h/o [id number] SHOAIB CHAUHAN MD PA ENT [address] [facility] [place] [address] 02/03/2017 10:55:36 02/04/2017 08:10:28 Chronic recurrent sinusitis 231348785 J32.9 status post revision left MMA, left ethmoidect cynthia, left NA window (limited medial maxillecto my), left SMR inferior turbinate( see above notes) Infection by methicillin sensitive Staphylococcus aureus 673750622 A49.01 h/o Nasal polyp 43941742 J33 .9 status post revision left MMA, left ethmoidect cynthia, left NA window (limited medial maxillecto my), left SMR inferior turbinate Hypertroph y of nasal turbinates 53779160 J34.3 status post revision left MMA, left ethmoidect cynthia, left NA window (limited medial maxillecto my), left SMR inferior turbinate Vasomotor rhinitis 78561 03 J30.0 Obstructiv e sleep apnea syndrome 03172050 G47.33 [id number] SHOAIB CHAUHAN MD PA ENT [address] [place] [address] 02/24/2017 10:44:32 02/24/2017 15:37:23 Chronic recurrent sinusitis 010028096 J32.9 status post revision left MMA, left ethmoidect cynthia, left NA window (limited medial maxillecto my), left SMR inferior turbinate( see above notes) Infection by methicillin sensitive Staphylococcus aureus 441403113 A49.01 h/o Nasal polyp 44795218 J33 .9 status post revision left MMA, left ethmoidect cynthia, left NA window (limited medial maxillecto my), left SMR inferior turbinate Hypertroph y of nasal turbinates 31473921 J34.3 status post revision left MMA, left ethmoidect cynthia, left NA window (limited medial maxillecto my), left SMR inferior turbinate Vasomotor rhinitis 32006 03 J30.0 Obstructiv e sleep apnea syndrome 72291460 G47.33 [id number] DEVON ISAACS APRN [facility] [address] [place] [address] 03/15/2017 14:24:33 03/18/2017 10:46:11 Neoplasm of uncertain behavior of skin 54149985 D48.5 R/O SCC - LEFT POSTERIOR LEGSHAVE BIOPSYSEE PROCEDURE NOTE Verruca vulgaris 7535024 3 B07.9 PT EDUCATED AND TREATMENT OPTIONS DISCUSSED. CRYO X 1 Senile hyperkeratosis 39 1140989 L82.1 BENIGN APPEARANCE , PT REASSURED Solar lentiginosis 64942 2006 L81.4 BENIGN APPEARANCE , PT REASSURED Pilar cyst of scalp 4014 75803 L72.11 BENIGN APPEARANCE , PT REASSURED Rosacea 022561976 L71.9 PT EDUCATED AND TREATMENT OPTIONS DISCUSSED. DISCUSSED NO GOOD TREATMENT OPTIONS FOR ERYTHEMA. ADVISED TO CALL OFFICE IF SHE DEVELOPS PAPULAR COMPONENT Actinic keratosis 024066 007 L57.0 CRYO X 5 Epidermoid cyst 40847697 6 L72.0 BENIGN APPEARANCE , PT REASSURED Hemangioma 187590327 D18 .00 BENIGN APPEARANCE , PT REASSURED [id number] MD SULEIMAN LENZ RD [address] [place] [address] 05/25/2017 07:54:05 05/25/2017 12:30:38 Obstructive sleep apnea syndrome 17354566 G47.33 Chronic re current sinusitis 014952041 J32.9 status post revision left MMA, left ethmoidect cynthia, left NA window (limited medial maxillecto my), left SMR inferior turbinate( see above notes)left endoscopic debridemen t 05/25/17 Infection by methicillin sensitive Staphylococcus aureus 407333065 A49.01 h/o Vasomotor rhinitis 40240 03 J30.0 Candidiasis of mouth 797 87469 B37.0 Screening for malignant neoplasm of breast 626573047 Z12.31 [id number] MD SULEIMAN LENZ RD [address] [place] [address] 07/18/2017 10:21:12 07/18/2017 12:13:48 Chronic sinusitis 15736258 J32.9 - Left Maxillary sinus endoscopy - minimal crusting at ostia and minimal inflamatio n of antral mucosa Laryngopha ryngeal reflux 533899063 K21.9 - S/p Fundoplica tion procedure (Dr. Cesar)- fibroptic laryngosco py today shows moderate LPR/aryten oiditis Vasomotor rhinitis 35206 03 J30.0 [id number] MD SULEIMAN LENZ ENT [address] [place] [address] 10/27/2017 13:16:24 11/01/2017 08:42:35 Laryngopharyngeal reflux 048197212 K21.9 - S/p Fundoplica tion procedure (Dr. Marc)- fibroptic laryngosco py today shows moderate LPR/aryten oiditis Vasomotor rhinitis 89873 03 J30.0 Chronic re current sinusitis 890574245 J32.9 status post revision left MMA, left ethmoidect cynthia, left NA window (limited medial maxillecto my), left SMR inferior turbinate 06/17/16-L eft Nasal/Sinu s endoscopy/ debridemen t 10/27/17= crusty, slightly purulent drainage from the left maxillary sinus Infection by methicillin sensitive Staphylococcus aureus 702602285 A49.01 h/o Obstructiv e sleep apnea syndrome 94483082 G47.33 Candidiasis of mouth 797 79447 B37.0 Screening for malignant neoplasm of breast 943273198 Z12.31 [id number] SONI MAYES PA-C ORTHOPEDI CS [facility] [address] [address] 10/31/2017 13:13:13 11/01/2017 07:56:44 Pain of shoulder region 19808988 M25.511 Rib pain 116660144 R07.8 1 Trigger finger 623006779 1 00090 M65.578 [id number] NEVAEH PA MD [facility]I [facility] [address] [address] 11/08/2017 08:51:09 11/08/2017 09:53:35 Pain of shoulder region 88189677 M25.511 good rom and strength - this appears to have been a direct contusion potentiall y with an occult rib fracture, costochond ral muscle injury, or serratus injury. Prognosis is good with conservati ve treatments . I recommende d some therapy to optimize recovery and outcome. Supportive management for now Rib pain 875806498 R07.8 1 traumatic [id number] DEVON ISAACS APRN [facility] [address] [place] [address] 11/10/2017 10:20:11 11/10/2017 13:40:15 Actinic keratosis 080860257 L57.0 CRYO X 6SEE PROCEDURE NOTELEFT NASAL TIP- PATIENT DEFERS TX TODFAY MALIGNANCY RISKS DISCUSSED WILL RTC IN NEXT FEW MONTHS TO TREAT PATIENT ADVISED WHAT TO EXPECT FROM FREEZING Senile hyperkeratosis 39 6642775 L82.1 CRYO X1 TO ISK'S LEFT THIGH OTHERS ARE BENIGN IN APPEARANCE AND PT REASSURED PATIENT ADVISED WHAT TO EXPECT FROM FREEZING Solar lentiginosis 34371 2006 L81.4 BENIGN APPEARANCE , PT REASSURED Pilar cyst of scalp 4011 62799 L72.11 BENIGN APPEARANCE , PT REASSURED Rosacea 617978080 L71.9 PT EDUCATED AND TREATMENT OPTIONS DISCUSSED. DISCUSSED NO GOOD TREATMENT OPTIONS FOR ERYTHEMA. ADVISED TO CALL OFFICE IF SHE DEVELOPS PAPULAR COMPONENT Hemangioma 386454911 D18 .00 BENIGN APPEARANCE , PT REASSURED History of squamous cell carcinoma of skin 353039269 Z85.828 NO RECURRENCE Skin sensa tion disturbance 66155289 R20.9 [id number] BALA RAHMAN, PT PHYSICAL THERAPY / HAND THERAPY [facility] [address] [place] [address] 11/14/2017 15:43:57 11/15/2017 07:27:03 Contusion of rib 434193969 S20.20XD Stiff back 963103075 M25 .60 Rib pain 553778738 R07.8 1 [id number] BALA RAHMAN, PT PHYSICAL THERAPY / HAND THERAPY [facility] [address] [place] [address] 12/08/2017 10:41:37 12/12/2017 07:37:54 Contusion of rib 584534640 S20.20XD Rib pain 776229072 R07.8 1 Abnormal posture 9185216 2 R29.3 Stiff back 116753302 M25 .60 [id number] DEVON ISAACS APRN [facility] [address] [place] [address] 12/22/2017 09:55:02 12/22/2017 11:58:37 Epidermoid cyst 464259492 L72.0 INFLAMED I&D IL KENALOG 5MG/ML X 0.3ML SEE PROCEDURE NOTE CONSENT SIGNED START DOXYCYCLIN E 100MG BID X 10 DAYS-SHE HAS HX MRSA Skin sensa tion disturbance 44894297 R20.9 [id number] CL DOLAN [facility]I [facility] [address] [place] [address] 01/27/2018 10:36:57 01/27/2018 13:24:40 Contusion of left knee 5711744166 8485448 S80.02XA Chondrocal cinosis of knee joint 570149760 M11.505 [id number] VALARIE MEYERS PA-C PULMONARY [address] [facility], [address] [place] [address] 01/30/2018 12:38:33 01/30/2018 16:42:44 Obstructive sleep apnea of adult 6106085586 103 G47.33 patient is compliant with CPAP. Her residual AHI is optimal. continue CPAP at current settings. Insomnia w ith sleep apnea 20015587 G47.00 continue Rozerem 4 milligrams by mouth nightly as needed. [id number] Duane RAMOS MD GENERAL SURGERY [address] [place] [address] 02/13/2018 10:06:25 02/13/2018 11:22:17 Epidermoid cyst of skin 246792131 L72.0 [id number] SHOAIB CHAUHAN MD PA ENT [address] [place] [address] 03/30/2018 14:01:39 04/03/2018 09:42:04 Chronic recurrent sinusitis 231259955 J32.9 status post revision left MMA, left ethmoidect cynthia, left NA window (limited medial maxillecto my), left SMR inferior turbinate 06/17/16-L eft Nasal/Sinu s endoscopy/ debridemen t 10/27/17= crusty, slightly purulent drainage from the left maxillary sinus Laryngopha ryngeal reflux 039807341 K21.9 - S/p Fundoplica tion procedure (Dr. Cesar)- fibroptic laryngosco py today shows moderate LPR/aryten oiditis Vasomotor rhinitis 87011 03 J30.0 Infection by methicillin sensitive Staphylococcus aureus 269234863 A49.01 h/o Obstructiv e sleep apnea syndrome 27781757 G47.33 -using CPAP nightly Candidiasis of mouth 797 66796 B37.0 Screening for malignant neoplasm of breast 009551493 Z12.31 [id number] SONI MAYES PA-C [facility] [address] [address] 04/07/2018 09:40:02 04/07/2018 12:49:18 Pain in thumb 726224503 M79.642 Acquired t umbrella repairer finger 5820919 M65.342 left ring finger Fracture o f proximal phalanx of finger 188762766 S62.515D [id number] Duane RAMOS MD SURGERY SCHEDULE [address] [place] [address] 04/25/2018 10:28:07 04/25/2018 10:29:04 [id number] Duane RAMOS MD GENERAL SURGERY SB [address] [place] [address] 05/10/2018 13:21:28 05/10/2018 15:21:07 Epidermoid cyst 405491729 L72.0 [id number] YURY HUERTA MD NEUROSURG [facility] CLOSED [address] [place] [address] 05/29/2018 12:08:28 05/29/2018 14:46:06 Low back pain 706864960 M54.5 [id number] YURY ABRAHAM MD GASTRO [address] [facility], [address] [place] [address] 09/11/2018 13:09:46 09/11/2018 15:19:42 Dysphagia 36924925 R13.10 Epigastric pain 64441317 R10.13 History of fundoplication 945249144 Z98.890 Constipation 32383581 K5 9.00 [id number] GRAHAM DYKES MD ORTHOPEDI [facility] CLOSED [address] [place] [address] 09/13/2018 13:23:23 09/13/2018 14:04:37 Acquired trigger finger 5937632 M65.30 Left ring finger, recommend release, has had injections . 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 We will obtain x-rays of the right wrist on that day [id number] YURY ABRAHAM MD SURGERY SCHEDULE [address] [place] [address] 09/25/2018 10:24:31 09/25/2018 10:30:18 [id number] SHOAIB CHAUHAN MD PA ENT [address] [facility] [place] [address] 09/28/2018 09:44:29 09/28/2018 14:06:51 Chronic recurrent sinusitis 173645801 J32.9 status post revision left MMA, left ethmoidect cynthia, left NA window (limited medial maxillecto my), left SMR inferior turbinate 06/17/16-L eft Nasal/Sinu s endoscopy/ debridemen t 10/27/17= crusty, slightly purulent drainage from the left maxillary sinus-Left Maxillary Sinus Debridemen t 09/28/18 - culture obtained Laryngopha ryngeal reflux 786912277 K21.9 - s/p Fundoplica tion procedure (Dr. 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; 1 prior culture the culture also grew out microbacte rium Obstructiv e sleep apnea syndrome 36925781 G47.33 -using CPAP nightly Screening for malignant neoplasm of breast 336222319 Z12.31 [id number] CHANDAN BECERRIL PA ENT [address] [facility] [place] [address] 09/28/2018 11:29:33 09/28/2018 12:13:32 [id number] GRAHAM DYKES MD SURGERY SCHEDULE [address] [place] [address] 10/03/2018 07:50:05 10/03/2018 07:53:45 [id number] GRAHAM DYKES MD ORTHOPEDI [facility] CLOSED [address] [place] [address] 10/18/2018 13:40:57 10/18/2018 14:56:37 Acquired trigger finger 7780385 M65.30 Status post release and a little more painful this time, encouraged her to continue exercises, light use, follow-up 4 weeks final check. If still very symptomati c at that time consider therapy Osteoarthr osis of the carpometacarpal joint of the thumb 81148303 M18.9 No specific treatment at this point, we will get x-rays when she is ready [id number] DEVON ISAACS APRN [facility] [address] [place] [address] 11/14/2018 10:22:07 11/14/2018 11:18:42 Actinic keratosis 352574528 L57.0 CRYO X 13SEE PROCEDURE NOTERISKS OF CRYO SURGERY DISCUSSED; POST OP CARE INSTRUCTIO NS PROVIDED. VERBAL CONSENT TO TREAT GIVEN BY PATIENT. RECOMMEND RECHECK 6 MONTHS Senile hyperkeratosis 39 6706161 L82.1 BENIGN APPEARANCE , PT REASSURED Solar lentiginosis 70876 2007 L81.4 BENIGN APPEARANCE , PT REASSURED Pilar cyst of scalp 4011 48296 L72.11 BENIGN APPEARANCE , PT REASSURED Rosacea 489109913 L71.9 PT EDUCATED AND TREATMENT OPTIONS DISCUSSED. DISCUSSED COULD CONSULT ON LASER. ADVISED TO CALL OFFICE IF SHE DEVELOPS PAPULAR COMPONENT Hemangioma 344941747 D18 .00 BENIGN APPEARANCE , PT REASSURED History of squamous cell carcinoma of skin 965633740 Z85.828 NO EVIDENCE OF RECURRENCE . Skin sensa tion disturbance 76074833 R20.9 Inflamed s eborrheic keratosis 838567658 L82.0 CRYO X 1 SEE PROCEDURE NOTE RISKS OF CRYO SURGERY DISCUSSED; POST OP CARE INSTRUCTIO NS PROVIDED. VERBAL CONSENT TO TREAT GIVEN BY PATIENT. [id number] GRAHAM DYKES MD [facility]OPEDI [facility] CLOS[facility] [address] [place] [address] 11/15/2018 13:29:26 11/15/2018 14:49:08 Acquired trigger finger 8816995 M65.30 6 weeks post release, very symptomati c this point, wants to try putty for strengthen ing which I think is a good idea, [facility] hand therapy, follow-up 4 weeks final check advised, assured. [id number] GRAHAM DYKES MD [facility]THOPEDI [facility] CL[facility] [address] [place] [address] 12/13/2018 13:06:49 12/13/2018 15:20:12 Flexor tenosynovitis of finger 384368690 M65.849 Right ring finger, 10 weeks status post trigger finger release, may be fraying of the flexor tendon and a bit of scar tissue, observe 6 weeks consider revision with possible partial FDS excision [id number] SHOAIB CHAUHAN MD PA ENT [address] [place] [address] 01/01/2019 09:47:04 01/01/2019 12:05:06 Chronic recurrent sinusitis 708151967 J32.9 status post revision left MMA, left ethmoidect cynthia, left NA window (limited medial maxillecto my), left SMR inferior turbinate 06/17/16-L eft Nasal/Sinu s endoscopy/ debridemen t 10/27/17= crusty, slightly purulent drainage from the left maxillary sinus-Left Maxillary Sinus Debridemen t 09/28/18 - culture obtained= no growth-lef t nasal/sinu s endoscopy 01/01/19=y emerita/rick n crusting in the left; moderate arytenoidi tis Laryngopha ryngeal reflux 140920615 K21.9 - s/p Fundoplica tion procedure (Dr. Cesar)- fibroptic laryngosco py 01/01/19 shows moderate LPR/aryten oiditis Vasomotor rhinitis 87143 03 J30.0 Obstructiv e sleep apnea syndrome 12574169 G47.33 -using CPAP nightly Sensorineu ral hearing loss of bilateral ears 237832353 H90.3 Neck pain 71328048 M54.2 appears to be the result of moderately intense arytenoidi tis secondary to laryngopha ryngeal reflux [id number] CHANDAN ZAPIEN ENT [address] [place] [address] 01/01/2019 10:28:37 01/01/2019 11:25:03 Sensorineural hearing loss of bilateral ears 381533804 H90.3 Dysfunctio n of eustachian tube 04578695 H69.93 Bilateral tinnitus 19486 68470 102 H93.13 Otalgia 19287459 H92.01 [id number] GRAHAM DYKES MD [facility]THOPEDI [facility] CL[facility] [address] [address] 01/24/2019 13:50:52 01/24/2019 14:42:45 Flexor tenosynovitis of finger 817648952 M65.849 Left ring finger, still mildly triggering possible degenerati ve flexor tenosynovi tis recommend considerat ion for excision of a part of FDS, also consider released both trigger thumbs sequential ly. She will follow-up in March to discuss all these diagnoses, she will call for follow up sooner with either or Soni to perform injections of all affected trigger fingers. We ordered an arthritis panel and we will call her or send results the computer. [id number] GRAHAM DYKES MD [facility]THOPEDI [facility] CL[facility] [address] [place] [address] 04/09/2019 13:55:39 04/09/2019 15:02:23 Flexor tenosynovitis of finger 089956523 M65.849 Trigger finger, right thumb. Recommend release. Left ring finger, observe. She has some limitation s, we can discuss in the future. Osteoarthr osis of the carpometacarpal joint of the thumb 24782796 M18.9 Right thumb, recommend basal joint arthroplas ty APL suspension plasty [id number] FERNANDA CHRISTIAN, PRIVATE BANKER GASTRO [address] [facility], [address] [place] [address] 04/24/2019 10:44:50 05/02/2019 09:50:41 Diarrhea 09802693 R19.7 R14.0 R15.2 R63.4 [id number] GRAHAM DYKES MD SURGERY SCHEDULE [address] [place] [address] 05/22/2019 08:12:22 05/22/2019 08:13:07 [id number] SHOAIB CHAUHAN MD [place] ENT [address] [place] [address] 05/30/2019 12:45:13 05/30/2019 14:09:47 Neck pain 47238897 M54.2 appears to be the result of moderately intense arytenoidi tis secondary to laryngopha ryngeal reflux -resolved Laryngopha ryngeal reflux 722844292 K21.9 - s/p Fundoplica tion procedure (Dr. Cesar)- fibroptic laryngosco py 01/01/19 shows moderate LPR/aryten oiditis Chronic re current sinusitis 225356116 J32.9 status post revision left MMA, left ethmoidect cynthia, left NA window (limited medial maxillecto my), left SMR inferior turbinate 06/17/16-L eft Nasal/Sinu s endoscopy/ debridemen t 10/27/17= crusty, slightly purulent drainage from the left maxillary sinus-Left Maxillary Sinus Debridemen t 09/28/18 - culture obtained= no growth-lef t nasal/sinu s endoscopy 01/01/19=y ellow/gree n crusting in the left; moderate arytenoidi tis-nasal/ sinus endoscopic debridemen t 05/30/19=T here is yellow/gre en drainage coming from the right posterior ethmoid sinuses and from the frontal recess. Sent for culture Obstructiv e sleep apnea syndrome 58750868 G47.33 -using CPAP nightly Vasomotor rhinitis 42761 03 J30.0 Sensorineu ral hearing loss of bilateral ears 479221965 H90.3 Hypertroph y of nasal turbinates 87621369 J34.3 status post revision left MMA, left ethmoidect cynthia, left NA window (limited medial maxillecto my), left SMR inferior turbinate Chronic hoarseness 21921 74717 105 R49.0 Chronic cough 49843819 R 05 [id number] SONI MAYES PA-C [facility]THOPEDI [facility] CL[facility] [address] [place] [address] 06/04/2019 13:17:27 06/04/2019 16:43:43 Postoperative care 430714487 Z48.89 Flexor ten osynovitis of finger 912963258 M65.849 doing well status post release of the right trigger thumb. Osteoarthr osis of the carpometacarpal joint of the thumb 67922386 M18.9 doing well status post right thumb CMC arthroplas ty with suspension plasty [id number] EVELYN K ALLY, OTR/L, CHT PHYSICAL THERAPY / HAND THERAPY [facility] CLOS[facility] [address] [place] [address] 06/04/2019 13:58:57 06/04/2019 14:53:21 Osteoarthrosis of the carpometacarpal joint of the thumb 07085388 M18.9 Right CMC Arthro. [id number] FERNANDA CHRISTIAN, PRIVATE BANKER GASTRO [address] [facility], [address] [place] [address] 06/13/2019 11:19:47 06/13/2019 13:52:10 Irritable bowel syndrome with diarrhea 018416782 K58.0 R14.0 [id number] GRAHAM DYKES MD [facility]THOPEDI [facility] CL[facility] [address] [place] [address] 07/02/2019 10:19:09 07/02/2019 10:43:18 Osteoarthrosis of the carpometacarpal joint of the thumb 76604087 M18.9 doing well status post right thumb CMC arthroplas ty with suspension plasty, Doing well at 6 weeks, progress to normal use as tolerated. She has a little bit of soreness of the dorsal aspect of the thumb which I attribute to stiffness and splint use, she will contact me if it is not better over the course of the next month. Follow-up as needed or call at the 6 week point for follow-up if there are any concerns. Flexor ten osynovitis of finger 303065043 M65.849 doing well status post release of the right trigger thumb. [id number] SHOAIB CHAUHAN MD PA ENT [address] [place] [address] 09/06/2019 08:02:26 09/10/2019 14:48:56 Chronic recurrent sinusitis 797363505 J32.9 status post revision left MMA, left ethmoidect cynthia, left NA window (limited medial maxillecto my), left SMR inferior turbinate 06/17/16-L eft Nasal/Sinu s endoscopy/ debridemen t 10/27/17= crusty, slightly purulent drainage from the left maxillary sinus-Left Maxillary Sinus Debridemen t 09/28/18 - culture obtained= no growth-lef t nasal/sinu s endoscopy 01/01/19=y ellow/gree n crusting in the left; moderate arytenoidi tis-nasal/ sinus endoscopic debridemen t 05/30/19=T here is yellow/gre en drainage coming from the right posterior ethmoid sinuses and from the frontal recess. Sent for culture- Nasal endoscopy with debridemen t of crusting of the left middle meatus and purulent drainage of the maxillary sinus 09/06/2019 Chronic hoarseness 49059 93445 105 R49.0 Chronic cough 07417721 R 05 Laryngopha ryngeal reflux 678392980 K21.9 - s/p Fundoplica tion procedure (Dr. Cesar)- fibroptic laryngosco py 01/01/19 shows moderate LPR/aryten oiditis Neck pain 35561416 M54.2 appears to be the result of moderately intense arytenoidi tis secondary to laryngopha ryngeal reflux -resolved Obstructiv e sleep apnea syndrome 17292596 G47.33 -using CPAP nightly Vasomotor rhinitis 35664 03 J30.0 Sensorineu ral hearing loss of bilateral ears 110170725 H90.3 Hypertroph y of nasal turbinates 03237022 J34.3 status post revision left MMA, left ethmoidect cynthia, left NA window (limited medial maxillecto my), left SMR inferior turbinate [id number] GRAHAM DYKES MD ORTHOPEDI [facility] CLOS[facility] [address] [place] [address] 10/01/2019 07:49:17 10/01/2019 09:46:55 Osteoarthrosis of the carpometacarpal joint of the thumb 35644280 M18.9 Pain volar radial aspect thumb difficulty lifting, localized FCR tunnel, TherapyFol low-up follow-up 6 weeks to consider injection, FCR tenotomy last resort Left basal joint arthritis, injection Flexor ten osynovitis of finger 770549459 M65.849 Left ring finger trigger finger with some palmar fibrous thickening and MP contractur e, observe, stretch for now. [id number] BALA RAHMAN, PT PHYSICAL THERAPY / HAND THERAPY [facility] CLOS[facility] [address] [place] [address] 10/01/2019 09:22:41 10/02/2019 07:24:59 Osteoarthritis of joint of hand 57319660 M19.041 Pain in right hand 01242 22853 63140 M79.641 Stiffness of joint of right hand 4075034448 46123 M25.834 [id number] LOUISE ROSS PA-C [facility] [address] [place] [address] 02/13/2020 08:37:07 02/13/2020 10:10:49 Actinic keratosis 043282339 L57.0 Educated on premaligna nt Dx Cryo x 8 - f/up if any treated lesions persist After care instructio ns were given Daily Broad spectrum SPF 30+ recommende d Senile hyperkeratosis 39 9559727 L82.1 Benign reassuranc e she has SKs on back of legs which she was reassured of today Solar lentiginosis 11000 2007 L81.4 Benign reassuranc e Rosacea 701299668 L71.9 ETR - mild Benign reassuranc e. She has been educated on laser tx option before Hemangioma 520899978 D18 .00 Benign reassuranc e History of squamous cell carcinoma of skin 770536822 Z85.828 left posterior leg- no EOR s/p Mohs- doing well [id number] GRAHAM DYKES MD SURGERY SCHEDULE [address] [place] [address] 02/14/2020 09:57:01 02/14/2020 09:58:55 [id number] SONI MAYES PA-C [facility]THOPEDI [facility] [address] [place] [address] 02/27/2020 10:40:58 02/27/2020 15:00:55 Osteoarthrosis of the carpometacarpal joint of the thumb 13484070 M18.9 doing well status post left thumb CMC arthroplas ty with suspension plasty. [id number] EVELYN CANALES, OTR/L, CHT PHYSICAL THERAPY / HAND THERAPY [facility] CL[facility] [address] [place] [address] 02/27/2020 11:53:16 02/27/2020 13:44:03 Osteoarthrosis of the carpometacarpal joint of the thumb 01200479 M18.9 left CMC Arthro. [id number] GRAHAM DYKES MD [facility]OPEDI [facility] [address] [place] [address] 03/26/2020 09:19:54 03/26/2020 10:17:59 Osteoarthrosis of the carpometacarpal joint of the thumb 75468217 M18.9 doing well status post left thumb CMC arthroplas ty with suspension plasty, Mobilize at this point progressed full use as tolerated. [id number] GRAHAM DYKES MD [facility]OPED[facility] [address] [place] [address] 05/07/2020 08:47:15 05/07/2020 09:55:45 Trigger finger 9867974577 66014 M65.30 Left ring 1.5 years status post trigger finger release with MP flexion contractur e which is bothersome . Suspect mild bowstringi ng leading to flexor tendon adhesions. Recommend MP stretching flexor tendon gliding exercises, possible splinting MP joint in extension. Right long finger stage I trigger finger, recommend tendon gliding exercises, she may require an injection if triggering gets worse with these exercises. Follow-up 6 weeks or sooner for injection if needed [id number] BALA RAHMAN, PT PHYSICAL THERAPY / HAND THERAPY [facility] [address] [place] [address] 05/09/2020 13:51:21 05/12/2020 07:50:35 Osteoarthrosis of the carpometacarpal joint of the thumb 42643438 M18.9 Thumb joint stiff 552916 002 M25.642 Contractur e of joint of finger of left hand due to scar 0766689613 6696438 L90.5 [id number] BALA RAHMAN, PT PHYSICAL THERAPY / HAND THERAPY [facility] CL[facility] [address] [place] [address] 05/20/2020 15:08:44 05/21/2020 09:19:22 Contracture of joint of finger of left hand due to scar 4067694240 8982896 L90.5 Osteoarthr osis of the carpometacarpal joint of the thumb 01770529 M18.9 Thumb joint stiff 281337 002 M25.762 [id number] BALA RAHMAN, PT PHYSICAL THERAPY / HAND THERAPY [facility] [address] [place] [address] 06/04/2020 09:28:49 06/04/2020 14:39:59 Contracture of joint of finger of left hand due to scar 1672963058 1809147 L90.5 Thumb joint stiff 322540 002 M25.642 Osteoarthr osis of the carpometacarpal joint of the thumb 79363615 M18.9 [id number] BALA RAHMAN, PT PHYSICAL THERAPY / HAND [facility]APY [facility] [address] [place] [address] 06/13/2020 12:27:47 06/13/2020 16:10:59 Osteoarthrosis of the carpometacarpal joint of the thumb 74761879 M18.9 Thumb joint stiff 481659 002 M25.080 [id number] BALA RAHMAN, PT PHYSICAL THERAPY / HAND THERAPY [facility] [address] [place] [address] 06/23/2020 09:11:42 06/24/2020 07:54:55 Osteoarthrosis of the carpometacarpal joint of the thumb 15825161 M18.9 Thumb joint stiff 936145 002 M25.642 Pain of ri ght shoulder joint 6231629251 1733353 M25.972 [id number] BALA RAHMAN, PT PHYSICAL THERAPY / HAND THERAPY [facility] [address] [place] [address] 07/04/2020 10:43:36 07/04/2020 16:13:23 Contracture of joint of finger of left hand due to scar 7684580913 5264404 L90.5 Pain of ri ght shoulder joint 2701884127 6604694 M25.511 Osteoarthr osis of the carpometacarpal joint of the thumb 96614587 M18.9 [id number] GRAHAM DYKES MD [facility]OPED[facility] [address] [place] [address] 07/30/2020 14:11:02 07/30/2020 14:34:09 Trigger finger 7962246832 10191 M65.30 Right long finger, triggering . She requests surgical management after the first of the year. [id number] GRAHAM DKYES MD SURGERY SCHEDULE [address] [place] [address] 09/02/2020 06:02:12 09/02/2020 08:10:32 [id number] LOUISE ROSS PA-C [facility] [address] [place] [address] 09/03/2020 11:04:51 09/03/2020 12:11:24 History of squamous cell carcinoma of skin 917859925 Z85.828 L posterior leg- s/p Mohs, no EOR and doing well Senile hyperkeratosis 39 6556051 L82.1 Benign reassuranc e Solar lentiginosis 09278 2006 L81.4 Benign reassuranc e Rosacea 197020304 L71.9 Benign reassuranc e ETR - mild She has been educated on laser tx option before Hemangioma 962361305 D18 .00 Benign reassuranc e Pilar cyst of scalp 4011 01581 L72.11 Benign reassuranc e Actinic keratosis 055367 007 L57.0 L nasal sidewall - pt deferred tx with LN, will monitor Educated on premaligna nt Dx Cryo x 6 After care instructio ns were given Daily Broad spectrum SPF 30+ recommende d Multiple b enign melanocytic nevi 541630035 D22.9 Benign reassuranc e Neoplasm o f uncertain behavior of skin 67758845 D48.5 L clavicle - r/o BCC Shave bx taken - see procedure note Pt tolerated well, after care given Varicose v eins of lower extremity 22391420 I83.892 Benign reassuranc e Compressio n stockings 15-20 mmg Hg Basal cell carcinoma of truncal skin 860106033 C44.519 L clavicle - clinical BCC, path confirmed nodular BCC EDC x 3 - see procedure note Pt tolerated well History of actinic keratosis 0963885375 104 Z87.2 Continue to monitor Recommende d to start niacinamid e supplement 500 mg BID [id number] EVELYN CANALES, OTR/L, CHT PHYSICAL THERAPY / HAND THERAPY [facility] [address] [address] 09/05/2020 09:40:17 09/05/2020 11:39:24 Trigger finger of right hand 1938401816 3915669 M65.30 LF TFR [id number] EVELYN CANALES, OTR/L, T PHYSICAL THERAPY / HAND THERAPY [facility] [address] [place] [address] 09/10/2020 10:52:06 09/10/2020 13:03:15 Trigger finger of right hand 5542561205 6775983 M65.30 LF TFR [id number] EVELYN CANALES OTR/L, T PHYSICAL THERAPY / HAND THERAPY [facility] [address] [place] [address] 09/19/2020 09:41:27 09/19/2020 13:20:36 Trigger finger of right hand 2615792199 2667569 M65.30 LF TFR [id number] SONI MAYES PA-C ORTHOPEDI [facility] [address] [address] 09/19/2020 09:39:42 09/19/2020 10:09:36 Trigger finger 8095463925 74681 M65.331 doing well status post release of the right long trigger finger. Pain in right arm 651173 004 M79.601 ? residual pain from tourniquet ? [id number] EVELYN CANALES, OTR/L, T PHYSICAL THERAPY / HAND THERAPY [facility] [address] [place] [address] 10/24/2020 08:19:40 10/24/2020 10:47:37 Trigger finger of right hand 1278384649 1269781 M65.30 LF TFR [id number] GRAHAM DYKES MD ORTHOPEDI CS [facility] [address] [place] [facility] 10/24/2020 08:20:12 10/24/2020 09:13:40 Trigger finger 1278289766 50093 M65.331 doing well status post release of the right long trigger finger, Advised, agree with use of tubes splint as needed to prevent PIP contractur e, otherwise will resolve when the swelling comes down. Follow-up as needed. NB left long finger triggered once, is a little tender to the touch, she may call back for treatment Pain in right arm 502131 004 M79.601 Did not mention this today apparently it has resolved [id number] VALARIE MEYERS PA-C PULMONARY [address] [facility], [address] [place] [address] 11/05/2020 08:52:36 11/05/2020 13:39:39 Obstructive sleep apnea of adult 6836723160 103 G47.33 residual AHI is optimal. I encouraged patient to wear CPAP closer to 7 8 hours a night. I also ordered an overnight pulse oximetry on RA with cpap. If her oxygen saturation is 88% or less for 5 min or more, she will need a titration study per medicare guidelines . She still reports significan t fatigue. Insomnia w ith sleep apnea 01484794 G47.00 I sent another script of [id number] milligrams by mouth nightly to use in place of melatonin if covered by insurance. [id number] LOUISE ROSS PA-C [facility] [address] [place] [address] 12/03/2020 10:12:45 12/03/2020 11:05:03 History of squamous cell carcinoma of skin 020132452 Z85.828 L posterior leg- s/p Mohs, no EOR and doing well History of malignant basal cell neoplasm of skin 316926872 Z85.828 L clavicle - Well healed ; no EOR Neoplasm o f uncertain behavior of skin 14874963 D48.5 r/o BCC vs SCC Left shoulder shave bx today wound care instructio ns given f/up per path Tx with EDC today ; pt tolerated well Patient ad vised about exposure to the sun 543030958 Z71.89 Counseled on sun protective clothing and daily UV protection with otc broad-spec trum SPF 30+ on exposed areas. Regular self-skin exams recommende d. Pt encouraged to RTC with any new/changi ng lesions. 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 303265720 D04.9 Path confirmed on left shoulder; tx with EDC x 3, recheck site in 3 months [id number] LOUISE ROSS PA-C [facility] [address] [place] [address] 03/04/2021 10:28:24 03/04/2021 11:15:00 History of squamous cell carcinoma of skin 738163344 Z85.828 L posterior leg- s/p Mohs, no EOR continue to monitor Solar lentiginosis 72839 2006 L81.4 Benign reassuranc e Rosacea 118770652 L71.9 Benign reassuranc e ETR - mild She has been educated on laser tx option before Hemangioma 689145738 D18 .00 Benign reassuranc e Pilar cyst of scalp 4011 38952 L72.11 Benign reassuranc e Multiple b enign melanocytic nevi 287931156 D22.9 Benign reassuranc e Raised panchito orrheic keratosis 0960269984 02526 L82.1 Benign reassuranc e History of squamous cell carcinoma in situ 5879779532 9105 Z86.008 L shoulder - s/p EDC, no EOR continue to monitor History of malignant basal cell neoplasm of skin 891851068 Z85.828 L clavicle- s/p EDC, no EOR continue to monitor Wound of skin 331185804 T14.8XXA Abrasion from reported trauma, slow to heal due to location and diabetic statusNo evidence of cellulitis Will have continue mupirocin 2 % topical ointment Patient ad vised about exposure to the sun 740315920 Z71.89 Counseled on sun protective clothing and daily UV protection with ot broad-spec trum SPF 30+ on exposed areas. Regular self-skin exams recommende d. Pt encouraged to RTC with any new/changi ng lesions. [id number] GRAHAM DYKES MD [facility]THOPEDI CS [facility] CL[facility] [address] [place] [address] 03/25/2021 10:26:20 03/25/2021 11:18:59 Acquired trigger finger 1138304 M65.30 Left small finger, injected today. Call for repeat injection or release Dupuytren' s disease of palm 068010979 M72.0 Minimal contractur e observe for now Idiopathic osteoarthritis 359984303 M19.91 both hands in particular right long finger PIP joint, warm soaks, gentle exercises, follow-up as needed. [id number] CHANDA ROMERO PA-C [facility] [address] [place] [address] 03/26/2021 09:49:17 03/26/2021 11:08:33 History of total knee arthroplasty 4443348195 105 Z96.659 We discussed conservati ve and surgical treatment options for knee arthritis. We discussed the importance of weight loss, and low-impact aerobic activity. We discussed judicious use of NSAIDs, if possible, or Tylenol. We discussed corticoste roid injections and viscosuppl ementation . We discussed bracing, physical therapy, activity modificati on, and use of assistive ambulatory devices. Plan today is for viscosuppl ementation Follow up prn [id number] VALARIE MEYERS PA-C PULMONARY [address] [facility], [address] [place] [address] 05/05/2021 15:50:26 05/05/2021 16:14:56 Obstructive sleep apnea of adult 4783364149 103 G47.33 we discussed CPAP recall detail. I'm going to order patient a new machine. If she does continue to use her old machine, she will discontinu e use of CPAP cleaning machine. [id number] LOUISE ROSS PA-C [facility] [address] [place] [address] 05/18/2021 10:17:14 05/18/2021 11:32:11 Raised seborrheic keratosis 0479738025 52523 L82.1 Benign reassuranc e Solar lentiginosis 64166 2006 L81.4 Benign reassuranc eActinic damage on chest, but no suspicious changing lesions. Will check again in tinue otc broad-spec trum SPF 30+ on exposed areas Patient ad vised about exposure to the sun 525914611 Z71.89 Counseled on sun protective clothing and daily UV protection with . Regular self-skin exams recommende d. Pt encouraged to RTC with any new/changi ng lesions. History of malignant basal cell neoplasm of skin 525965908 Z85.828 L clavicle- s/p EDC, no EOR continue to monitor History of squamous cell carcinoma in situ 6625235713 9105 Z86.008 L shoulder - s/p EDC, no EOR continue to monitor [id number] SHOAIB CHAUHAN MD PA ENT [address] [place] [address] 08/10/2021 15:57:20 08/11/2021 07:51:48 Chronic recurrent sinusitis 941769706 J32.9 -2007 - Septoplast y, Left ESS Dr SUMMERS- 6 - revision left MMA, left ethmoidect cynthia, left NA window (limited medial maxillecto my), left SMR inferior turbinate- Left Nasal/Sinu s endoscopy/ debridemen t 10/27/17= crusty, slightly purulent drainage from the left maxillary sinus-Left Maxillary Sinus Debridemen t 09/28/18 - culture obtained= no growth-lef t nasal/sinu s endoscopy 01/01/19=y ellow/loidae n crusting in the left-nasal /sinus endoscopic debridemen t 05/30/19=T here is yellow/gre en drainage coming from the right posterior ethmoid sinuses and from the frontal recess. Sent for culture- Nasal endoscopy with debridemen t of crusting of the left middle meatus and purulent drainage of the maxillary sinus 09/06/2019-1 10/11/20 -minimal light yellow-gre en crusting at the left middle meatus Hypertroph y of nasal turbinates 37605233 J34.3 status post revision left MMA, left ethmoidect cynthia, left NA window (limited medial maxillecto my), left SMR inferior turbinate Laryngopha ryngeal reflux 086637793 K21.9 - s/p Fundoplica tion procedure (Dr. Cesar)- fibroptic laryngosco py 01/01/19 shows moderate LPR/aryten oiditis Neck pain 66940238 M54.2 appears to be the result of moderately intense arytenoidi tis secondary to laryngopha ryngeal reflux -resolved Obstructiv e sleep apnea syndrome 72326804 G47.33 -using CPAP nightly Vasomotor rhinitis 14702 03 J30.0 Sensorineu ral hearing loss of bilateral ears 506491131 H90.3 [id number] LOUSIE ROSS PA-C [facility] [address] [place] [address] 09/23/2021 09:39:46 09/23/2021 10:38:19 Solar lentiginosis 149818525 L81.4 Benign reassuranc e Raised panchito orrheic keratosis 5043402861 45944 L82.1 Benign reassuranc e History of malignant basal cell neoplasm of skin 154714742 Z85.828 L clavicle- s/p EDC, no EOR continue to monitor History of squamous cell carcinoma in situ 4828019625 9105 Z86.008 L shoulder - s/p EDC, no EOR continue to monitor Patient ad vised about exposure to the sun 317658278 Z71.89 Counseled on sun protective clothing and daily UV protection with . Regular self-skin exams recommende d. Pt encouraged to RTC with any new/changi ng lesions. Actinic keratosis [address] x 3pt tolerated wellafter care instructio ns were given Hemangioma 537059469 D18 .00 Benign reassuranc e Severe dry skin 98813463 2 L85.3 Educated regarding bathing strategies , use of fragrance- free cleansers, moisturize rs, and laundry products.R ecommend warm shower daily less than 15 minutes, soap only in odor bearing areas, pat dry and use vaseline or heavy moisturize r such as Cetaphil cream, Cerave cream or Ailyn Posay Lipikar + balm liberally over body 1-2 times daily History of squamous cell carcinoma of skin 285726752 Z85.828 L posterior leg- s/p Mohs, no EOR continue to monitor Pilar cyst of scalp 4011 76400 L72.11 Benign reassuranc e Multiple b enign melanocytic nevi 990712628 D22.9 Benign reassuranc e [id number] GRAHAM DYKES MD [facility] [address] [address] 09/28/2021 10:42:16 09/28/2021 12:04:35 Trigger finger of left hand 5176403834 3531190 M65.30 Left small finger. She had a left ring finger release of the trigger finger has resultant stiffness, limited extension and skin adhesions likely related to Dupuytren' s disease. Recommend subtotal palmar fasciectom y ring finger with flexor tenolysis and possible jonathan reconstruc tion if needed, possible MC capsulecto my if needed. Therapy postoperat ively in [place] [id number] GRAHAM DYKES MD SURGERY SCHEDULE [address] [place] [address] 10/08/2021 07:21:00 10/08/2021 07:21:24 [id number] GRAHAM DYKES MD [facility]EDI CS [facility] [address] [place] [address] 10/19/2021 13:32:57 10/19/2021 13:51:54 Acquired trigger finger 2475989 M65.30 Palmar fasciectom y left ring finger Tenolysis FDP left ring finger tenolysis FDS left ring finger Capsulecto my left ring finger MP joint Reconstruc tion A0 jonathan left ring finger with FDS tendon graft Release left small trigger finger 2 weeks postop doing well continue therapy follow-up 4 weeks. She has a mild amount of triggering of her index finger, we will watch this for now and consider injection if it worsens [id number] GRAHAM DYKES MD [facility]EDI [facility] [address] [place] [address] 11/18/2021 13:09:41 11/18/2021 13:32:25 Acquired trigger finger 4980141 M65.30 Palmar fasciectom y left ring finger Tenolysis FDP left ring finger tenolysis FDS left ring finger Capsulecto my left ring finger MP joint Reconstruc tion A0 jonathan left ring finger with FDS tendon graft Release left small trigger finger 6 weeks postop doing well continue therapyFol low-up 6 weeks or may cancel if doing well. Encouraged to continue intrinsic stretch [id number] FERNANDA CHRISTIAN, FRANDY GASTRO [facility] [address] [facility], [address] [place] [address] 11/18/2021 11:26:55 11/19/2021 07:36:48 Chronic idiopathic constipation 67767585 K59.04 Trial of Linzess, call office in 1-2 weeks if helping, not helping.Re view of CT scan A/P with IV, PO contrast, negative.R efer to cardiology , dizziness. Upper endoscopy recommende d, history of hiatal hernia with Sierra repair.Fol low up 2-3 weeks after EGD, call for any questions or concerns. Patient verbalized understand ing. [id number] KAMILAH LOPEZ, [facility] C[facility] [address] [place] [address] ,[address] [place] [address] 11/19/2021 09:46:23 11/23/2021 09:56:46 Near syncope 745059860 R55 Patient notes that these episodes of near fainting, are occurring when she has her hands above her head, for example when she mercado her plants. 1. 14-day E patch ordered 2. Carotid Doppler study ordered -also concern of subclavian steal. Patient is with multiple risk factors for atheroscle rosis/PAD developmen t including type 2 diabetes mellitus, and hypertensi on. She is also with a family history of first-degr ee relatives with [place]. Patient had a duplex Doppler study of carotid and vertebral arteries performed on 12/23/2008 due to dizziness and anomaly of the left side of neck. Right ICA with mild turbulence .Systolic velocity up to 111 cm/s. The right ECA and CCA normal velocities , normal waveforms, normal ICA/CCA systolic ratio. Moderate homogenous hyperechoi c plaque at the right ICA ayngbi36-3 9% stenosis. Left ICA with mild turbulence .Upper normal velocity of 123 cm/s systolic. The left ECA in the left CCA with normal ratios. Moderate homogenous hypoechoic plaqueyiel ds 20-49% stenosis. Apparently there was some history of minor anomaly at the left CCA. 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 According to the Doppler performed in 2008, this was no longer evident. Cardiovasc ular risk assessment (10 year, women) score: 20.1% 3. Echo -needs to be with bubble study, as the patient is symptomati c with near fainting episodes. Obstructiv e sleep apnea syndrome 72512576 G47.33 Patient is known to Valarie Meyers PA-C from pulmonary medicine for her [facility]I. She has been awaiting a new machine. Sleep study performed on 07/11/2015 revealed:1 . Severe obstructiv e sleep apnea. The AIH was 34.7. 2. The patient has very poorly consolidat ed sleep. 3. The patient has significan tly elevated periodic limb movement index. Essential hypertension 83229849 I10 Blood pressure in the office today is 119/68. This appears stable on losartan 50 mg daily. Palpitations 03369701 R0 0.2 14-day E patch ordered, as these palpitatio ns are not occurring daily. Supraventr icular tachycardia 1739653 I47.1 She does have a history of SVT and short pauses evidenced on her Holter monitor performed on 07/12/2008 . The patient's average heart rate was 89 bpm2 pauses exceeding 2.0 seconds were noted. The longest pause of 2. 2 seconds occurred at 10:14 PM. 169 ventricula r ectopies, which represente d less than 1% of the total beat count, were noted. 1 supraventr icular ectopy which represente d less than 1% of the total beat count, were noted. In channel 1, a single episode of ST segment depression occurred at 9:46 AM with a maximum depression of -1.1 mm. She is currently on propranolo l 80 mg extended release once daily. Overweight 785230670 E66 .3 BMI 25.6. Counseling discussed Dyspnea on exertion 6084 5006 R06.09 Patient had a previous echocardio gram performed 02/09/2011 that revealed:1 . Normal sinus chamber and motion. 2. Normal left ventricula r systolic function EF appeared to be 70%. 3. No pericardia l or pleural effusion. 4. Wall motion is uniform and symmetrica l without evidence of intracardi ac thrombi. 5. Valvular evaluation shows minimal systolic mitral valve prolapse with slightly redundant anterior leaflet. 6. Color-flow Doppler shows mild mitral and tricuspid regurgitat ion with normal left atrial and right atrial size and normal right ventricula r systolic pressures. [id number] BEN HERNANDEZ MD [facility] [address] [place] [address] 11/19/2021 12:18:51 11/19/2021 12:19:10 Palpitations 66606916 R00.2 [id number] BEN HERNANDEZ MD ECHO [facility] [address] [place] [address] [place] [address] 12/03/2021 12:53:02 12/04/2021 08:15:47 Mitral valve prolapse 751447769 I34.1 Syncope 015260489 R55 [id number] TONIE CARRINGTON MD ECHO VASCULAR LAB [address] [place] [address] 5 12/03/2021 12:53:49 12/04/2021 08:15:05 Carotid bruit 742644526 R09.89 [id number] KAMILAH LOPEZ, [facility] CARD[facility] [address] [place] [address] 12/11/2021 10:18:29 12/14/2021 08:52:23 Near syncope 779544104 R55 Patient notes that these episodes of near fainting, are occurring when she has her hands above her head, for example when she mercado her plants. Work-up thus far includes: 1. 14-day E patch ordered: worn from 11/19 -11/30/21 revealed:- Rare ventricula r ectopy- rare supraventr icular activity (4 short runs)- No evidence of a. fib/flutte r- No pauses 2.Carotid Doppler study ordered : Impression of carotid dopplar study performed on 12/03/21No hemodynami peter significan t (<50%) stenosis of the bilateral internal carotid arteries. Mild intimal thickening along bilateral CCAs.The vertebral arteries demonstrat e antegrade flow.There is no evidence of subclavian steal.Ther e are no prior studies for comparison . 3. Impression of echocardio gram with bubbles performed on 12/03/21:Nor mal echocardio gram.No significan t valvular heart disease.No rmal systolic function and ejection fraction. EF = 65%.Grade 1 diastolic dysfunctio nNegative bubble study Cardiovasc ular risk assessment (10 year, women) score: 20.1% Palpitations 56154002 R0 0.2 14-day E patch results revealed rare ventricula r ectopy. No pauses. No A. fib/flutte r. Patient states that her palpitatio ns are well controlled on propranolo l 80 mg extended release daily. Supraventr icular tachycardia 2840173 I47.1 She does have a history of SVT and short pauses evidenced on her Holter monitor performed on 07/12/2008 . The patient's average heart rate was 89 bpm2 pauses exceeding 2.0 seconds were noted. The longest pause of 2. 2 seconds occurred at 10:14 PM. 169 ventricula r ectopies, which represente d less than 1% of the total beat count, were noted. 1 supraventr icular ectopy which represente d less than 1% of the total beat count, were noted. In channel 1, a single episode of ST segment depression occurred at 9:46 AM with a maximum depression of -1.1 mm. She is currently on propranolo l 80 mg extended release once daily, and reports that this is helping with great relief. Essential hypertension 85502656 I10 Blood pressure in the office today is 118/60. The last visit it was 119/68. This appears stable on losartan 50 mg daily. Obstructiv e sleep apnea syndrome 03572414 G47.33 Patient is known to Valarie Meyers PA-C from pulmonary medicine for her NHI. She has been awaiting a new machine. Sleep study performed on 07/11/2015 revealed:1 . Severe obstructiv e sleep apnea. The AIH was 34.7.2. The patient has very poorly consolidat ed sleep.3. The patient has significan tly elevated periodic limb movement index. The patient states that her CPAP machine has been recalled. I have recommende d for her to meet with Valarie Meyers again to undergo another sleep apnea study. Overweight 529801367 E66 .3 BMI stable at 25.7. The last visit it was 25.6. Diet; I counseled patient on maintainin g a less than 2 g sodium restrictio n diet plan. She is also agreeable to not add salt additional ly to her food. We discussed weight reduction as well during our consultati on today. [id number] GRAHAM CORONA MD UROLOGY [facility]OS[facility] [address] 1 12/14/2021 10:45:13 12/14/2021 12:39:30 Cyst of kidney 488891711 N28.1 Right flank pain 7559898 09 R10.9 [id number] YURY ABRAHAM MD SURGERY SCHEDULE [address] [place] [address] 1 12/18/2021 11:14:51 12/18/2021 11:15:52 [id number] GRAHAM DYKES MD [facility]EDI CS [facility] [address] [place] [address] 12/30/2021 11:44:22 12/30/2021 12:17:04 Acquired trigger finger 9585252 M65.30 Palmar fasciectom y left ring finger Tenolysis FDP left ring finger tenolysis FDS left ring finger Capsulecto my left ring finger MP joint Reconstruc tion A0 jonathan left ring finger with FDS tendon graft Release left small trigger [id number] weeks postop, stable. Advised, assured, follow-up as needed if any change. [id number] C LEONEL PAYNE PA-C [facility]ED[facility] [address] [place] [address] 01/22/2022 09:14:49 01/22/2022 09:41:44 Osteoarthritis of knee 117272294 M17.9 [id number] FERNANDA CHRISTIAN APRN GASTRO [facility] [address] [facility], [address] [place] [address] 01/06/2022 11:11:20 01/06/2022 13:03:58 Delayed gastric emptying 857213951 K30 4 hour gastric emptying scan.Trial of Motegrity, take as discussed, call office in 1-2 weeks if helping. Abdominal bloating 26937 9008 R14.0 Gastroesop hageal reflux disease without esophagitis 943799815 K21.9 Chronic id iopathic constipation 06346478 K59.04 [id number] LOUISE ROSS PA-C DERMATOLO [facility] [address] [place] [address] 03/09/2022 11:07:23 03/09/2022 13:04:23 History of squamous cell carcinoma of skin 032704890 Z85.828 L posterior leg s/p Mohs - No EOR, continue to monitor History of malignant basal cell neoplasm of skin 368266663 Z85.828 L clavicle s/p EDC - No EOR, continue to monitor History of squamous cell carcinoma in situ 3002957562 9105 Z86.008 L shoulder s/p EDC - No EOR, continue to monitor Solar lentiginosis 67032 2007 L81.4 Benign reassuranc e Raised panchito orrheic keratosis 2732042861 44269 L82.1 Benign reassuranc e Hemangioma 632638520 D18 .00 Benign reassuranc e Multiple b enign melanocytic nevi 955265515 D22.9 Benign reassuranc e Pilar cyst of scalp 4011 92704 L72.11 Benign reassuranc e Actinic keratosis 993457 007 L57.0 Educated patient on pre-malign ant dxTreated today with LN x 2See procedure notePatien t tolerated wellAfter care instructio ns were given Patient ad vised about exposure to the sun 962139458 Z71.89 Counseled on sun protective clothing/h ats and daily UV protection with [facility] broad-spec trum SPF 30+ on exposed areas. Regular self-skin exams recommende d. Pt encouraged to RTC with any new/changi ng lesions. Neoplasm o f uncertain behavior of skin 17462979 D48.5 7 mm pink, scaly papule on the L calfr/o - SCC Shave removal with ED to baseSee procedure noteWound care was givenConse nt was signedPhot o takenF/up per path [id number] LOUISE ROSS PA-C [facility] [address] [place] [address] 03/31/2022 15:39:00 04/01/2022 08:08:33 Squamous cell carcinoma of skin of lower extremity 814837273 C44.729 L calfBx proven superficia lly invasive well differenti ated SCC per pathEDC x 3 todaySee procedure notePatien t tolerated wellAfter care instructio ns givenF/up 3 months [id number] VALARIE MEYERS PA-C PULMONARY [address] [facility], [address] [place] [address] 06/30/2022 10:30:38 06/30/2022 11:41:29 Obstructive sleep apnea syndrome 50781935 G47.33 patient would like to discontinu e CPAP. She has difficulty sleeping with the machine at times. She has lost weight since her original sleep study approximat iván 10% of her body weight. A repeat sleep study has been ordered. Insomnia w ith sleep apnea 95194584 G47.00 Continue Rozarem as needed. [id number] SANGITA NGUYEN GY [facility] [address] [place] [address] 07/05/2022 10:45:16 07/05/2022 11:11:05 History of squamous cell carcinoma of skin 735731736 Z85.828 L posterior leg s/p Mohs - No EOR, continue to monitorMos t recently, L calf s/p EDC 2021 - No EOR, continue to monitor Patient ad vised about exposure to the sun 779279809 Z71.89 Counseled on sun protective clothing/h ats and daily UV protection with [facility] broad-spec trum SPF 30+ on exposed areas. Regular self-skin exams recommende d. Pt encouraged to RTC with any new/changi ng lesions. 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 Pt would like a refills of Elidel 1% topical cream for her Alexandria's rash which flares in winterTrie d tacrolimus 0.1% ointment which was insurance preferred but she does not feel it works as well Dog bite - wound 2056314 05 T14.8XXA Pt reports recent dog bite on L wrist and R wrist from her new puppy, tooth punctured skinHas been treating with topical antibiotic ointment - not healingSta rt Augmentin as directed [id number] SANGITA NGUYEN [facility] [address] [place] [address] 07/11/2023 13:20:42 07/11/2023 14:29:02 History of squamous cell carcinoma of skin 339282311 Z85.828 L posterior leg s/p Mohs - No EOR, continue to monitorMos t recently, L calf s/p EDC 2021 - No EOR, continue to monitor History of malignant basal cell neoplasm of skin 861346063 Z85.828 L clavicle s/p EDC - No EOR, continue to monitor History of squamous cell carcinoma in situ 3223777460 9105 Z86.008 L shoulder s/p EDC - No EOR, continue to monitor Solar lentiginosis 12833 2007 L81.4 Benign reassuranc e Raised panchito orrheic keratosis 0749971354 84048 L82.1 Benign reassuranc e Hemangioma 695896749 D18 .00 Benign reassuranc e Multiple b enign melanocytic nevi 195877115 D22.9 Benign reassuranc e Pilar cyst of scalp 4011 61487 L72.11 Benign reassuranc e Actinic keratosis 789690 007 L57.0 Chronic w/ exacerbati on LN x 1 R anterior upper armPatient tolerated wellCryosu rgery handout providedSe e procedure note Mild actinic damage on nose - start fluorourac il 5% topical cream BID for 2-3 weeks - se/r/b discussed, handout providedWi ll not start this week, 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 Will treat sometime this Winter Patient ad vised about exposure to the sun 810664013 Z71.89 Counseled on sun protective clothing/h ats and daily UV protection with otc broad-spec trum SPF 30+ on exposed areas. Regular self-skin exams recommende d. Pt encouraged to RTC with any new/changi ng lesions. Neoplasm o f uncertain behavior of skin 66379893 D48.5 L lateral knee - R/O eczema vs [place] vs superficia l NMSCPhoto taken today for future comparison Will treat with pimecrolim us 1% cream for 2-3 weeks if no improvemen t then treat with fluorourac il 5% topical cream when she treats her nose. If no reaction after 5FU cream then plan for biopsy. Dry skin dermatitis 2600 04543 L85.3 Start ammonium lactate 12% cream QDAdvised to try and stop scratching skin. Tap skin and use cool compresses [id number] SHOAIB CHAUHAN MD [place] [facility] [address] [place] [address] 09/02/2022 10:46:14 09/02/2022 12:14:11 Chronic recurrent sinusitis 249964283 J32.9 -2007 - Septoplast y, Left ESS [...] inflammati on at the left maxillary sinus ostia Laryngopha ryngeal reflux 567696571 K21.9 - s/p Fundoplica tion procedure (Dr. Cesar) x 2-01/01/19 - fiberoptic laryngosco py - shows moderate LPR/aryten oiditis Obstructiv e sleep apnea syndrome 74402704 G47.33 -using CPAP nightly Vasomotor rhinitis 88576 03 J30.0 Sensorineu ral hearing loss of bilateral ears 883048404 H90.3 Thyroid nodule 123842637 E04.1 -09/02/22 - Lower right lobe 1cm nodule vs cyst - sl tender [id number] SONI MAYES PA-C ORTHOPEDI CS [facility] [address] [address] 10/13/2022 12:42:48 10/13/2022 14:27:08 Pain of right elbow joint [id number] 1793085 M25.521 Lateral ep icondylitis of right humerus 2698085460 50458 M77.11 [id number] BALA RAHMAN, PT PHYSICAL THERAPY / HAND THERAPY [facility] [address] [place] [address] 10/20/2022 12:01:53 10/21/2022 15:24:20 Pain of right shoulder joint 2107154613 3089124 M25.511 Tendinitis of right forearm 5655812576 9146287 M67.88 Atrophy of muscle of right shoulder 3701304549 32308 M62.511 [id number] BALA RAHMAN, PT PHYSICAL THERAPY / HAND THERAPY [facility] [address] [facility] [place] [address] 11/08/2022 09:14:47 11/11/2022 15:33:40 Pain of right shoulder joint 2836419185 7802683 M25.511 Lateral epicondylitis 20 3181034 M77.11 Abnormal posture 9727551 2 R29.3 Spasm 64661219 R25.2 [id number] MD SULEIMAN LENZ ENT [address] [place] [address] 12/09/2022 14:10:58 12/09/2022 15:51:05 Chronic recurrent sinusitis 439011702 J32.9 -2007 - Septoplast y, Left ESS [...] inflammati on at the left maxillary sinus ostia Laryngopha ryngeal reflux 056051204 K21.9 - s/p Fundoplica tion procedure (Dr. Cesar) x 2-01/01/19 - fiberoptic laryngosco py - shows moderate LPR/aryten oiditis Thyroid nodule 429228084 E04.1 -09/02/22 - Lower right lobe 1cm nodule vs cyst - sl tenderUltr asound dos 09/08/22 from [facility]= no thyroid nodule or mass identified . Small right neck lymph nodes, nonspecifi c and likely reactive noted. Obstructiv e sleep apnea syndrome 77034131 G47.33 -using CPAP nightly Vasomotor rhinitis 98746 03 J30.0 Sensorineu ral hearing loss of bilateral ears 341986910 H90.3 Crusted nasal mucosa 277 674606 R09.89 12/09/22- left maxillary ostium [id number] BALA RAHMAN, PT PHYSICAL THERAPY / HAND THERAPY [facility] [address] [place] [address] 11/16/2022 11:55:02 11/18/2022 09:37:55 Pain of right shoulder joint 8609515116 7486250 M25.511 Lateral epicondylitis 20 6600376 M77.11 Abnormal posture 4532834 2 R29.3 [id number] GRAHAM DYKES MD ORTHOPEDI CS [facility] [address] [place] [address] 11/24/2022 11:53:14 11/24/2022 12:17:31 Tendinitis of right rotator cuff 7381200458 3915208 M67.813 Possible rerupture, recommend MR arthrogram and follow-up with Dr. Ashley Valdez t umbrella repairer finger 7863079 M65.30 1 year status post palmar fasciectom y left ring finger Tenolysis FDP left ring finger tenolysis FDS left ring finger Capsulecto my left ring finger MP joint Reconstruc tion A0 jonathan left ring finger with FDS tendon graftStill has some difficulty with function, recommend further hand therapy, no more operation [id number] VENKATA MORRIS APRN CARDIOLOG Y EAST [address] [place] [address] ,[address] [place] [address] 12/22/2022 11:55:24 12/22/2022 13:23:09 Supraventricular tachycardia 0041769 I47.1 Stable. No evidence of recurrence most recent heart monitor. continue with BB. Obstructiv e sleep apnea syndrome 85253266 G47.33 Not currently treating. Hypertensive disorder 38 121532 I10 Currently on losartan, currently at 50mg BID.Will add low dose HCTZ to regimen Near syncope 470464067 R 55 Ongoing history of near-synco pe. Cardiac workup has been unrevealin g. EKG today is normal.Hx of breast CA.Recomme nd brain MRI to r/o neurologic al abnormalit y. Dizziness 209789445 R42 Ongoing issues with dizziness. Her cardiac workup is normal. Carotid studies are normal.She does have chronic sinusitis issues follows with ENT, I have encouraged her to discuss these symptoms with him. [id number] PUSHPA LATHAM MD ORTHOPEDI CS [facility] [address] [address] 12/27/2022 09:21:09 12/27/2022 11:39:44 Pain of right shoulder joint 5476735943 5292255 M25.511 [id number] LOUISE ROSS PA-C [address] [address] [place] [address] 01/06/2023 09:35:45 01/06/2023 10:36:20 History of squamous cell carcinoma of skin 802283355 Z85.828 L posterior leg s/p Mohs - No EOR, continue to monitorMos t recently, L calf s/p EDC 2021 - No EOR, continue to monitor Patient ad vised about exposure to the sun 335902674 Z71.89 Counseled on sun protective clothing/h ats and daily UV protection with otc broad-spec trum SPF 30+ on exposed areas. Regular self-skin exams recommende d. Pt encouraged to RTC with any new/changi ng lesions. History of malignant basal cell neoplasm of skin 177270755 Z85.828 L clavicle s/p EDC - No EOR, continue to monitor History of squamous cell carcinoma in situ 1621713601 9105 Z86.008 L shoulder s/p EDC - No EOR, continue to monitor Solar lentiginosis 80879 2006 L81.4 Benign reassuranc e Raised panchito orrheic keratosis 2106856725 21013 L82.1 Benign reassuranc e Hemangioma 674009850 D18 .00 Benign reassuranc e Multiple b enign melanocytic nevi 922272756 D22.9 Benign reassuranc e Pilar cyst of scalp 4011 04996 L72.11 Benign reassuranc e Actinic keratosis 375854 007 L57.0 Educated patient on pre-malign ant dxTreated today with LN x 2See procedure notePatien t tolerated wellAfter care instructio ns were given mild actinic damage on nose patient bothered by texture plan to use 5FU cream on nose in the Fall/Winte r [id number] ANUEL YEUNG MD ORTHOPEDI CS [facility] [address] [address] 01/31/2023 09:08:00 01/31/2023 09:58:32 Sprain of left ankle 2415228926 0499709 S93.402A ATFL sprain, no sign of fracture.n on-op tx, RICE, wbat, PT referal provided for 1-2 visit for edema/swel ling control, ankle rom, prop training. Idiopathic peripheral neuropathy 44177291 G60.9 rec continue/c omplete evaluation by her PCP/outsid e events specialist care with [facility]. max 15 min [id number] VENKATA MORRIS APRN CARDIOLOG Y [address] ,[address] [place] [address] 02/02/2023 13:40:52 02/03/2023 04:51:37 Dizziness 299233043 R42 Ongoing issues with dizziness. Her cardiac workup is normal. Carotid studies are normal. Brain MRI with no acute findings, chronic sinusitis noted.She does have chronic sinusitis issues follows with ENT, I have encouraged her to discuss these symptoms with ENT for their opinion as well. Supraventr icular tachycardia 6810732 I47.1 Stable. No evidence of recurrence most recent heart monitor. continue with BB. Obstructiv e sleep apnea syndrome 54924716 G47.33 Not currently treating. Working with pulmonary to restart treatment. Hypertensive disorder 38 787031 I10 Currently on losartan, currently at 50mg BID, HCTZ 12.5mg daily.Pres sures are stable. Type 2 dereje betes mellitus 79337159 E11.9 PCP monitoring . Chest pain 77330469 R07. 9 Normal stress test in October, still with ongoing CP.More frequent in nature. Pain is non-exerti onal, but still concerning .CCTA will be obtained to further assess coronary anatomy. ischemia workup was normal.Fol low up in 4 months Dyspnea on exertion 6084 5006 R06.09 She will discuss dyspnea with pulmonary [id number] YURY OROZCO APRN [place] E[facility] [address] [place] [address] 02/11/2023 08:35:16 02/11/2023 11:28:51 Chronic recurrent sinusitis 430105775 J32.9 -2007 - Septoplast y, Left ESS [...] inflammati on at the left maxillary sinus ostia Laryngopha ryngeal reflux 458809637 K21.9 - s/p Fundoplica tion procedure (Dr. Cesar) x 2-01/01/19 - fiberoptic laryngosco py - shows moderate LPR/aryten oiditis Thyroid nodule 934218645 E04.1 -09/02/22 - Lower right lobe 1cm nodule vs cyst - sl tenderUltr asound dos 09/08/22 from [facility]= no thyroid nodule or mass identified . Small right neck lymph nodes, nonspecifi c and likely reactive noted. Obstructiv e sleep apnea syndrome 82173730 G47.33 -using CPAP nightly Vasomotor rhinitis 95748 03 J30.0 Sensorineu ral hearing loss of bilateral ears 616714770 H90.3 - Audio 02/11/23: stable compared to 2019 Postural dizziness 68541 7008 R42 - suspect cardiac component or orthostati c hypotensio n- 02/11/23: ears clear, Terra-Hallpi kes negative, hearing loss symmetric, tympanomet ry WNL Orthostati c hypotension 75040715 I95.1 Impacted c erumen in right ear 0253029190 656844 H61.21 [id number] TAMIR PALMA , [facility] ENT [address] [place] [address] 02/11/2023 09:39:36 02/11/2023 12:20:06 Sensorineural hearing loss of bilateral ears 971792855 H90.3 Bilateral tinnitus 31423 77980 102 H93.13 [id number] VALARIE MEYERS PA-C PULMONARY [address] [facility] [place] [address] 02/23/2023 09:36:10 02/23/2023 10:07:33 Obstructive sleep apnea of adult 0790375764 103 G47.33 home sleep study discussed in detail. This no longer shows NHI. Patient will discontinu e CPAP. Insomnia 094700078 G47.0 0 Continue Rozerem as needed. [id number] VALARIE MEYERS PA-C PULMONARY [address] [facility], [address] [place], [place] [address] 04/19/2023 08:53:21 04/20/2023 07:57:55 Dyspnea on exertion 15692456 R06.09 Chest x-ray is normal today. PFTs are normal. No obstructio n noted. She reports having recent labs with no anemia. I did request a copy of her stress test and echo that was performed at [facility]. Obstructiv e sleep apnea syndrome 76625095 G47.33 Eliminated with weight loss.. [id number] GRAHAM DYKES MD ORTHOPEDI CS [facility] [address] [address] 04/20/2023 15:39:49 04/20/2023 16:12:40 Bilateral carpal tunnel syndrome 3423081978 0332132 G56.03 Left is somewhat progressiv e the right just started tingling in the past day or 2. Recommende d wrist splints, recommende d hand therapy, she will follow-up if she does not get relief we will do a diagnostic carpal tunnel injection to see if it is from carpal tunnel syndrome or her sensorimot or polyneurop athy. [id number] VENKATA MORRIS APRN CARDIOLOG Y [address] ,[address] [place] [address] 07/06/2023 12:46:21 07/11/2023 04:15:36 Dizziness 075480645 R42 Recheck CBC. Patient notes her daughter just had abnormal CBC. Supraventr icular tachycardia 9928359 I47.10 Stable. No evidence of recurrence most recent heart monitor. continue with BB. Obstructiv e sleep apnea syndrome 21928831 G47.33 Not currently treating. Working with pulmonary to restart treatment. Hypertensive disorder 38 945883 I10 Currently on losartan, currently at 50mg BID, HCTZ 12.5mg daily.Pres sures are stable. Type 2 dereje betes mellitus 05281331 E11.9 PCP monitoring . Coronary arteriosclerosis 06520000 I25.10 Normal stress test in October, CP now resolved. CCTA done at [facility] gat ston score = 161Left Main: CAD-RADS [...] itation with an FFRct value of 0.92. Keep annual follow up. [id number] LOUISE ROSS PA-C [facility] [address] [place] [address] 01/30/2024 14:55:41 01/30/2024 15:57:27 History of squamous cell carcinoma of skin 814259686 Z85.828 L posterior leg s/p Mohs - No EOR, continue to monitorMos t recently, L calf s/p EDC 2021 - No EOR, continue to monitor History of malignant basal cell neoplasm of skin 704371663 Z85.828 L clavicle s/p EDC - No EOR, continue to monitor History of squamous cell carcinoma in situ 5613307440 9105 Z86.008 L shoulder s/p EDC - No EOR, continue to monitor Solar lentiginosis 37049 2006 L81.4 Benign reassuranc e Raised panchito orrheic keratosis 1359100657 59509 L82.1 Benign reassuranc e Hemangioma 482666204 D18 .00 Benign reassuranc e Multiple b enign melanocytic nevi 004486903 D22.9 Benign reassuranc e Pilar cyst of scalp 4011 70173 L72.11 Benign reassuranc eShe states they have grown but she does not want to have them excised at this time. 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 Actinic keratosis 007 L57.0 L superior helical rim - AK vs CNH, will treat with LN in office today. Discussed getting a silk pillow case vs alternatin g sides of head she sleeps on. Recommende d cryosurger y to L helical rim x 1, L cheek x 1Patient tolerated wellCryosu rgery handout providedSe e procedure note Actinic damage on nose - treated with 5FU cream BID for 2.5 weeks with an inflammato ry response in August 2023. Pt tolerated well. Nose is smooth today. Dry skin dermatitis 2600 10804 L85.3 Continue ammonium lactate 12% cream QD. Does not require refills at this time. Patient ad vised about exposure to the sun 322256145 Z71.89 Counseled on sun protective clothing/h ats and daily UV protection with otc broad-spec trum SPF 30+ on exposed areas. Regular self-skin exams recommende d. Pt encouraged to RTC with any new/changi ng lesions. Family his tory of malignant melanoma 884713173 Z80.7 Sister [id number] PUSHPA LATHAM MD ORTHOPEDI CS [facility] [address] [address] 07/14/2023 10:21:30 07/14/2023 11:59:40 Pain of right shoulder joint 5004441896 8541733 M25.511 Biceps tendinitis 263294 007 M75.21 [id number] MD SULEIMAN LENZ ENT [address] [place] [address] 09/08/2023 13:02:33 09/08/2023 15:20:11 Chronic recurrent sinusitis 730537845 J32.9 -2007 - Septoplast y, Left ESS [...] inflammati on at the left maxillary sinus ostia Laryngopha ryngeal reflux 039626853 K21.9 -2008 - s/p Sierra Fundoplica tion [...] be the result of arytenoidi tis from LPR Thyroid nodule 162877593 E04.1 -09/02/22 - Lower right lobe sl tender- 09/08/22 Thyroid US [facility]= no thyroid nodule or mass identified . Small right neck lymph nodes, nonspecifi c and likely reactive noted. Obstructiv e sleep apnea syndrome 70349017 G47.33 -using CPAP nightly Vasomotor rhinitis 86035 03 J30.0 Sensorineu ral hearing loss of bilateral ears 647826452 H90.3 Neck pain 82986744 M54.2 -09/08/22 -Thyroid ultrasound at [facility] no thyroid nodules or masses identified -04/2023 - Onset of intermitte nt right lower neck pain- - Neck ultrasound years to [facility] le appearance in the designated painful area; several [...] be the result of arytenoidi tis from LPR [id number] NEIL LANG PA-C ORTHOPEDI CS [facility] [address] [place] , [place] [address] 09/20/2023 14:45:47 09/20/2023 15:59:33 Osteoarthritis of right knee joint 9791065927 88371 M17.11 ASSESSMENT : DJD RIGHT knee PLAN: We discussed conservati ve and surgical treatment options for knee arthritis. We discussed the importance of weight loss, and low-impact aerobic activity. We discussed judicious use of NSAIDs, if possible, or Tylenol. We discussed corticoste roid injections and viscosuppl ementation . We discussed bracing, physical therapy, activity modificati on, and use of assistive ambulatory devices. Plan today is for viscosuppl ementation Follow up prn [id number] FERNANDA CHRISTIAN APRN GASTRO [address] [facility], [address] [place] [address] 10/06/2023 11:19:51 10/06/2023 12:13:18 Gastroesophageal reflux disease without esophagitis 821897198 K21.9 Trial of famotidine , can use 1-2 times per day.Discus sed dietary triggers, elevating HOB, no eating within 2 hours of laying down.Follo w up 2-3 weeks after EGD, colonoscop y. Feeling of lump in throat 430722156 R09.89 Upper endoscopy, colonoscop y recommende d. History of Sierra fundoplica tion. Swallowing painful 38378 002 R13.19 Altered yusuf wel function 81648733 R19.4 [id number] YURY ABRAHAM MD SURGERY SCHEDULE [address] [place] [address] 10/18/2023 13:18:08 10/18/2023 13:18:59 [id number] LU WRIGHT MD GENERAL SURGERY [address] [place] [address] 11/08/2023 09:55:14 11/10/2023 13:54:55 Polyp of cecum 084093391 D12.0 73-year-ol d female seen for evaluation regarding polyp noted at the appendicea l orifice on recent colonoscop y. No pathology available. Did have sessile serrated polyp in the transverse colon which was removed. Discussed risk benefits and alternativ es of surgical resection. Ideally we will plan on sick ectomy but also discussed the risk of possible need to conversion for ileocecect cynthia depending on the proximity to the ileocecal valve. Plan for bowel prep and to be done at [facility] with pass evaluation . [id number] LU WRIGHT MD GENERAL SURGERY [address] [place] [address] 12/08/2023 10:16:09 12/09/2023 05:01:26 Polyp of cecum 210351976 D12.0 73-year-ol d female seen for evaluation regarding polyp noted at the appendicea l orifice on recent colonoscop y. No pathology available. Did have sessile serrated polyp in the transverse colon which was removed. Discussed risk benefits and alternativ es of surgical resection. Ideally we will plan on sick ectomy but also discussed the risk of possible need to conversion for ileocecect cynthia depending on the proximity to the ileocecal valve. Plan for bowel prep and to be done at [facility] with pass evaluation .12/07-Stat us post laparoscop ic appendecto my for appendicea l orifice polyp. Noted tubular adenoma on path. Negative margins. Healing well tolerating diet and pain controlled . Discussed ongoing lifting precaution s. Repeat colonoscop y per GI as planned. [id number] LOUISE ROSS PA-C [facility] [address] [place] [address] 08/01/2024 14:41:06 08/01/2024 15:31:06 History of squamous cell carcinoma of skin 098672784 Z85.828 L posterior leg s/p Mohs - No EOR, continue to monitorMos t recently, L calf s/p EDC 2021 - No EOR, continue to monitor History of malignant basal cell neoplasm of skin 998397054 Z85.828 L clavicle s/p EDC - No EOR, continue to monitor History of squamous cell carcinoma in situ 8424174448 9105 Z86.008 L shoulder s/p EDC - No EOR, continue to monitor Solar lentiginosis 23503 2006 L81.4 Benign reassuranc e Raised panchito orrheic keratosis 7432940442 11727 L82.1 Benign reassuranc e Hemangioma 626740936 D18 .00 Benign reassuranc e Multiple b enign melanocytic nevi 645603037 D22.9 Benign reassuranc e Pilar cyst of scalp 4011 49241 L72.11 Benign reassuranc eShe states they have grown but she does not want to have them excised at this time. 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 Family his tory of malignant melanoma 856086673 Z80.7 Sister Patient ad vised about exposure to the sun 094068254 Z71.89 Counseled on sun protective clothing/h ats and daily UV protection with otc broad-spec trum SPF 30+ on exposed areas. Regular self-skin exams recommende d. Pt encouraged to RTC with any new/changi ng lesions. 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 Discussed getting a silk pillow case vs alternatin g sides of head she sleeps on or purchase CNH cut out pillow Neoplasm o f uncertain behavior of skin 66872591 D48.5 R lateral lower leg - r/o lichenoid keratosis vs BCC Shave bx taken todaySee procedure notePhoto taken, consent signedWoun d care instructio michael providedf/ up per path History of actinic keratosis 9600981545 104 Z87.2 Previously treated with cryotherap y and 5FU topical cream [id number] MD SULEIMAN LENZ ENT [address] [place] [address] 02/09/2024 08:46:43 02/15/2024 16:13:50 Neck pain 49564156 M54.2 -09/08/22 -Thyroid ultrasound at [facility] no thyroid nodules or masses identified -04/2023 - Onset of intermitte nt right lower neck pain- - Neck ultrasound years to [facility] le appearance in the designated painful area; several [...] tis from LPR02/09/24 - no complaints of Laryngopha ryngeal reflux 133428776 K21.9 -2008 - s/p Sierra Fundoplica tion [...] inflammati on. Pt may return to singing. Chronic re current sinusitis 271335561 J32.9 -2007 - Septoplast y, Left ESS [...] is pink and healthy. Rx- Gentamycin irrigate BID Thyroid nodule 958668560 E04.1 -09/02/22 - Lower right lobe sl tender- 09/08/22 Thyroid [facility]= no thyroid nodule or mass identified . Small right neck lymph nodes, nonspecifi c and likely reactive noted. Obstructiv e sleep apnea syndrome 88143561 G47.33 -using CPAP nightly Vasomotor rhinitis 95405 03 J30.0 Sensorineu ral hearing loss of bilateral ears 227911577 H90.3 Jesus's esophagus 3029 37443 K22.70 02/09/24- managed with Dr. Abraham [id number] NEIL LANG PA-C ORTHOPEDI CS [facility] [address] [address] 06/05/2024 10:56:47 06/05/2024 11:33:30 Osteoarthritis of right knee joint 8780655734 20574 M17.11 ASSESSMENT : DJD RIGHT knee PLAN:We discussed conservati ve and surgical treatment options for knee arthritis. We discussed the importance of weight loss, and low-impact aerobic activity. We discussed judicious use of NSAIDs, if possible, or Tylenol. We discussed corticoste roid injections and viscosuppl ementation . We discussed bracing, physical therapy, activity modificati on, and use of assistive ambulatory devices. Plan today is for viscosuppl ementation Follow up prn [id number] VENKATA MORRIS APRN CARDIOLOG Y [address] ,[address] [place] [address] 07/06/2024 10:43:31 07/06/2024 14:32:12 Coronary arteriosclerosis 58779082 I25.10 CCTA done at [facility] gat ston score = 161Left Main: CAD-RADS [...] itation with an FFRct value of 0.92. She has complaint of intermitte nt CP today, ischemia workup will be obtained. No ischemic changes noted on EKGStart plavix, she notes she cannot take ASAShe is not treating HLP d/t Hx of peripheral neuropathy with statin drugs.Foll ow up in 6 mo, sooner should concerning finidngs be noted on stress Supraventr icular tachycardia 2605022 I47.10 Stable. No evidence of recurrence most recent heart monitor. continue with BB. Obstructiv e sleep apnea syndrome 74544230 G47.33 Not currently treating Hypertensive disorder 38 612642 I10 Stable.Low sodium diet. Type 2 dereje betes mellitus 52313403 E11.9 PCP monitoring . Hyperlipidemia 97999917 E78.5 Notes she cannot take statin, notes it caused peripheral neuropathy Will obtain labs from PCP office. Discussed importance of tight control of lipids d/t Hx of CADLDL goal < 55, consider PSCK9-I Chest pain 73035755 R07. 9 Reported todayHx of non-obs CAD as noted aboveIsche tristen workup pending, see above plan [id number] YURY MORELAND MD HE[facility] [address] ,[address] [place] [address] 08/09/2024 12:11:01 08/10/2024 10:41:56 [id number] LAUREN GRIFFIN MD PA ENT [address] [place] [address] 11/27/2024 14:39:55 11/27/2024 16:11:08 Chronic recurrent sinusitis 184883857 J32.9 -2007 - Septoplast y, Left ESS [...] obtained today in office Laryngopha ryngeal reflux 677829455 K21.9 -2008 - s/p Sierra Fundoplica tion [...] inflammati on. Pt may return to singing. Jesus's esophagus 3029 20499 K22.70 02/09/24- managed with Dr. Abraham Neck pain 20670444 M54.2 -09/08/22 -Thyroid ultrasound at [facility] no thyroid nodules or masses identified -04/2023 - Onset of intermitte nt right lower neck pain- - Neck ultrasound years to [facility] appearance in the designated painful area; [...] LPR02/09/24 - no complaints of Thyroid nodule 412780719 E04.1 -09/02/22 - Lower right lobe sl tender- 09/08/22 Thyroid [facility]= no thyroid nodule or mass identified . Small right neck lymph nodes, nonspecifi c and likely reactive noted. Obstructiv e sleep apnea syndrome 37514338 G47.33 -using CPAP nightly Vasomotor rhinitis 97536 03 J30.0 Sensorineu ral hearing loss of bilateral ears 906397817 H90.3 Absence of bilateral tonsils 221933205 Z90.09 [id number] NEIL LANG PA-C ORTHOPEDI CS [facility] [address] [place] [address] 12/11/2024 15:15:15 12/11/2024 16:15:18 Pain in left sacroiliac joint 2732703153 7672366 M53.3 Assessment : SI joint dysfunctio n Plan: Start with formal PT, topical gels/cream s such as CBD creams, can't take NSAIDs due to GI/ulcer history, she is interested in getting SI joint injections , referral faxed to our auto customize painter Dr. Alcala who can provide these. Additional ly, recommende d Dr. Baez with [facility] for her fibromyalg ia.Gave home exercises to work on in the meantime as well.We did look at her hips and physical exam remains benign, although moderate hip DJD. Follow up as needed. [id number] MD SULEIMAN H[facility]LEY [facility] [address] [place] [address] 12/28/2024 13:38:24 12/28/2024 14:08:30 Chronic recurrent sinusitis [id number] J32.9 -2007 - Septoplast y, Left ESS [...] obtained today in office Laryngopha ryngeal reflux [id number] K21.9 -2008 - s/p [employer] [facility] [...] inflammati on. Pt may return to singing. Jesus's esophagus [id number] 86659 K22.70 02/09/24- managed with Dr. Abraham Neck pain [id number] M54.2 -09/08/22 -Thyroid ultrasound at [facility] no thyroid nodules or masses identified -04/2023 - Onset of intermitte nt right lower neck pain- - Neck ultrasound years to [facility] appearance in the designated painful area; several small lymph nodes appreciate d none of which are enlarged; normal-michel earing salivary glands-08/29 09/21 - Examinatio n of the neck reveals no neck masses palpable cervical lymph nodes or thyroid masses; fiberoptic laryngosco py shows moderate inflammati on of each arytenoid with otherwise normal-imchel earing true vocal cords with no nodules or polyps; no leukoplaki a; no hypopharyn geal masses; Pain appears to be the result of arytenoidi tis from LPR02/09/24 - no complaints of Thyroid nodule [id number] E04.1 -09/02/22 - Lower right lobe sl tender- 09/08/22 Thyroid US [facility]= no thyroid nodule or mass identified . Small right neck lymph nodes, nonspecifi c and likely reactive noted. Obstructiv e sleep apnea syndrome 62725646 G47.33 -using CPAP nightly Vasomotor rhinitis 87715 03 J30.0 Sensorineu ral hearing loss of bilateral ears 216534706 H90.3 Absence of bilateral tonsils 086411569 Z90.09 [id number] VENKATA MORRIS APRN CARDIOLOG Y [address] ,[address] [place] [address] 01/25/2025 12:36:16 01/25/2025 13:52:07 Coronary arteriosclerosis 73399413 I25.10 CCTA done at [facility] gat ston score = 161Left Main: CAD-RADS [...] mo for ongoing management Supraventr icular tachycardia 9395449 I47.10 Stable. No evidence of recurrence most recent heart monitor. continue with BB. Obstructiv e sleep apnea syndrome 72102448 G47.33 Not currently treating Hypertensive disorder 38 129754 I10 Stable.Low sodium diet. Type 2 dereje betes mellitus 36307444 E11.9 PCP monitoring . Hyperlipidemia 05637140 E78.5 Notes she cannot take statin, notes it caused peripheral neuropathy Discussed importance of tight control of lipids d/t Hx of CADLDL goal < 55, consider PSCK9-I if not attained given her history of non-obs CADPrimary care monitoring [id number] LOUISE ROSS PA-C [facility] [address] [place] [address] 01/30/2025 14:03:50 01/30/2025 16:47:15 History of squamous cell carcinoma of skin 226006785 Z85.828 L posterior leg s/p MohsL calf s/p EDC 2021 No EOR, will continue to monitor History of malignant basal cell neoplasm of skin 321733994 Z85.828 L clavicle s/p EDC - No EOR, continue to monitor History of squamous cell carcinoma in situ 1148920241 9105 Z86.008 L shoulder s/p EDC - No EOR, continue to monitor History of actinic keratosis 4297121739 104 Z87.2 Previously treated with cryotherap y and 5FU topical cream Solar lentiginosis 63691 2007 L81.4 Benign reassuranc e Raised panchito orrheic keratosis 6055615684 87837 L82.1 Benign reassuranc e Hemangioma 348446601 D18 .00 Benign reassuranc e Multiple b enign melanocytic nevi 365133247 D22.9 Benign reassuranc e Pilar cyst of scalp 4011 69700 L72.11 Benign reassuranc eShe states they have grown but she does not want to have them excised at this time. 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 Family his tory of malignant melanoma 119661883 Z80.7 Sister Patient ad vised about exposure to the sun 948708933 Z71.89 Counseled on sun protective clothing/h ats and daily UV protection with otc broad-spec trum SPF 30+ on exposed areas. Regular self-skin exams recommende d. Pt encouraged to RTC with any new/changi ng lesions. Allergic c ontact dermatitis caused by urushiol from Eastern poison hesham 658055344 L23.7 She has used clobetasol in the past w/ benefit Neoplasm o f uncertain behavior of skin 43652406 D48.5 a. left proximal lateral upper arm r/o SCC - ED&C todayb. 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 [id number] C44.629 left proximal lateral upper armClinica l SCCTreated with ED&C x3 todaySee procedure noteWill recheck at 6 mo f/up sooner if patient notices any regrowth Health Concerns Section Related Observation LastModified by Organization Detai ls LastModified Time None Recorded Concern Status LastModified by Organization Details LastModified Time None Recorded Advance Directives Directive None Recorded Payers Insurance Date Sequence Insurance Name Policy Number Policy Salcido Covered Member ID Salcido Member ID Guarantor Name 02/13/2020 1 [id number] [id number] Umesh Renteria Manny [id number] Candace P Manny 05/24/2019 2 [place] [id number] Umesh Renteria Manny [id number] Candace P Manny 04/19/2023 INGENIOUSMED (MOVED TO HOLD) Candace P Manny Candace P Manny 01/30/2025 [employer] - DMEPOS ASSIGNED (MEDICARE DME REGION B) Candace P Manny [id number] Candace P Manny 01/30/2025 1 [place] Candace P Manny [id number] Candace P Manny 02/04/2025 2 AARP (MEDICARE SUPPLEMENT) Candace P Manny [id number] Candace P Manny Notes Date Note Type Note Provider Name and Address Organization Details Recorded Time 5 text/html Melody presents in office today to follow up on chronic sinusitis. She was prescribed Cefdinir 08/2024 with an abundance of sinus drainage. She has since resumed Felix's sinus irrigations along with Azelastine. She now has hard dried yellow mucus every morning.She hawks every morning.She is having sinus headaches as well. She did receive a d/x of ejsus's esophagus in the past year. 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 LAUREN GRIFFIN MD [address] [place] [address], [phone], [facility] 11/27/2024 15:24:26 5 text/html 12/11/24History of painful hip3 month history of LEFT hip pain.Any inciting event? yes, september 07 fallNo groin pain.No thigh pain.No trochanteric pain.Occasional mechanical symptoms. Symptoms exacerbated by ascending/descending stairs, prolonged weight bearing, and arising from a seated position. she comes in today, reporting constant, sharp and throbbing, the pain is present in the lower back region on the left side, patient refers to SI joint. She experiences these sharp pains while bearing. No phyiscal therapy for the hips. Pain/difficulty donning socks/shoes: yes Low back pain: frequentRadicular symptoms: noneRates the overall pain level at 9/10. Pain daily.Endorses night/rest pain.Prior treatments:NSAIDS nHip injections nPhysical therapy Jodie prior surgeries on this hip n NEIL LANG PA-C [address] [place] [address], [phone], [facility] 12/11/2024 16:18:18 5 text/html Melody visits us in office today to follow up on chronic sinusitis. Pt has continued to have nasal congestion and discolored drainage from the nose. Culture from 11/27/24 was consistent with Staphylococcus aureus. LAUREN GRIFFIN MD [address] [place] [address], [phone], [facility] 12/28/2024 14:12:21 5 text/html Ms. Bryant is a pleasant 74-year-old [...] normal LV function. Had repeat carotid at [facility] which showed < 50% bilat ICA stenosis. Brain MRI 12/2022 was normal. 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 CCTA done at [facility] gatston score = 161Left Main: CAD-RADS 0 [...] she had complaint of CP.She underwent Lexiscan 08/09/[id number]. Normal myocardial perfusion at rest and stress.2. [...] Did not require surgical intervention. VENKATA MORRIS, PRIVATE B[employer]ER [address] [place], [phone], [facility] 01/25/2025 15:30:22 5 text/html Established patient Patient presents to clinic [...] a positive family history of melanoma (sister). LOUISE ROSS PA-C [address] [place], [phone], [facility] 02/03/2025 19:46:23 OBGyn Episode No OBEpisode recorded.
--- NOTE | 2025-03-01 10:42 | CT_ITS ---
PROCEDURE INFORMATION: Exam: CT Head Without Contrast Exam date and time: 03/01/2025 10:55 AM Age: 74 years old Clinical indication: Other: Bifrontal HIDALGO, recent maxillary sinusitis TECHNIQUE: Imaging protocol: Computed tomography of the head without contrast. Radiation optimization: All CT scans at this facility use at least one of these dose optimization techniques: automated exposure control; mA and/or kV adjustment per patient size (includes targeted exams where dose is matched to clinical indication); or iterative reconstruction. COMPARISON: MR HEAD/BRAIN WO CON 12/31/2022 7:34 AM FINDINGS: Brain: There is no evidence of acute intracranial hemorrhage, extra-axial collection or locoregional mass effect. There are scattered hypodensities in the periventricular and subcortical white matter. The appearance is nonspecific, but most likely represents chronic small vessel disease in a person of this age Cerebral ventricles: The ventricles, sulci and cisterns are normal in size and configuration for patient's age. No hydrocephalus or midline structure shift Pituitary gland and sella: Sellar/parasellar structures, craniocervical junction and orbits are unremarkable Paranasal sinuses: Postoperative changes in the paranasal sinuses. There is mucosal thickening involving the left sphenoid left posterior ethmoidal air cells and left maxillary sinus. Mastoid air cells: Visualized mastoid air cells are well aerated. Bones: No calvarial fracture Soft tissues: Unremarkable. IMPRESSION: No acute intracranial abnormality. No calvarial fracture.
--- NOTE | 2025-03-01 10:42 | CT_ITS ---
PROCEDURE INFORMATION: Exam: CTA Head With Contrast, Venography Exam date and time: 03/01/2025 10:57 AM Age: 74 years old Clinical indication: Other: Bifrontal HIDALGO, recent maxillary sinusitis TECHNIQUE: Imaging protocol: Computed tomography angiography of the head with contrast. Exam focused on the veins. 3D rendering (Not supervised by radiologist): MIP and/or 3D reconstructed images were created by the technologist. Radiation optimization: All CT scans at this facility use at least one of these dose optimization techniques: automated exposure control; mA and/or kV adjustment per patient size (includes targeted exams where dose is matched to clinical indication); or iterative reconstruction. Contrast material: ISO 370; Contrast volume: 93 ml; Contrast route: INTRAVENOUS (IV); COMPARISON: CT HEAD/BRAIN WO CON 03/01/2025 10:55 AM FINDINGS: Superior sagittal sinus: Patent. Straight sinus: Patent. Transverse sinuses: Patent. Sigmoid sinuses: Patent. Internal jugular veins: Limited visualized internal jugular veins are patent. Brain: No definite mass, mass effect, or midline shift. Cerebral ventricles: No ventriculomegaly. Paranasal sinuses: Postoperative changes in the paranasal sinuses. There is mucosal thickening involving the left sphenoid left posterior ethmoidal air cells and left maxillary sinus. Soft tissues: Unremarkable. IMPRESSION: 1. No venous thrombosis. 2. Left maxillary sinusitis
[2025-03-01 10:47] LABS: Hematocrit 45.6 % (37.0-47.0); Hemoglobin 15.6 g/dL (12.2-16.2); Immature Granulocytes % 0.3 %; Mean Corpuscular HGB Conc 34.2 g/dL (31.8-35.4); Mean Corpuscular Hemoglobin 30.8 pg (27.0-31.2); Mean Corpuscular Volume 89.9 fl (81-99); Nucleated Red Blood Cells % 0 %; Platelet Count 154 K/mm3 (142-424); Red Blood Count 5.07 M/mm3 (4.20-5.40); Red Cell Distribution Width-SD 40.5 fL; White Blood Count 7.8 K/mm3 (4.8-10.8)
--- NOTE | 2025-03-01 10:51 | HMH.EDGENADL ---
Discharge Plan Disposition Patient Disposition: Home, Self-Care Prescriptions Prescriptions: No Action propranolol-hydrochlorothiazid 1 EACH tablet 1 ea PO DAILY repaglinide 0.5 tablet 0.25 mg PO DAILY metformin 1,000 MG tablet 1,000 mg PO BID esomeprazole magnesium 40 MG capsule,delayed release(DR/EC) 40 mg PO DAILY nortriptyline 50 MG capsule 50 mg PO DAILY eletriptan [Relpax] 20 tablet 20 mg PO DAILY ramelteon [Rozerem] 8 tablet 8 mg PO DAILY metronidazole 500 MG tablet 500 mg PO TID Qty: 30 0RF cephalexin 500 mg tablet 500 mg PO BID 10 Days Qty: 20 0RF triamcinolone acetonide 0.025 % cream 1 applic topical BID Qty: 15 0RF hydrocodone-acetaminophen 5-325 mg tablet 1 tab PO Q6H PRN (Reason: pain) Qty: 10 0RF Referrals Follow up/Referrals: Graham Jose MD [Primary Care Provider, Internal Medicine] - See instructions Activity Restrictions/Add. Instructions Additional Instructions/Restrictions: At this time it was felt you are safe to be discharged home. If new or worsening symptoms please do not hesitate to return the emergency department. Clinical Impressions Clinical Impression: Headache Print Language Print Language: Telugu Discharge ED Provider: Shahzad Luo General Adult HPI General Chief complaint: Headache Stated complaint: headache x7, nauseous, fever Time Seen by Provider: 03/01/25 10:25 Mode of Arrival: Ambulatory Source of Information: Patient and Spouse Description of Symptoms (Recalled from ER Triage Doc. by RN): pt reports being treated for a staph sinus infection. 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 History is obtained by patient at bedside, normally her home medications for migraine help resolve her headache. However this time she has had acute onset headache that is bifrontal in nature for the last 7 days. No visual changes reported. Normally her migraines are left-sided with associated neck and shoulder pain. She does have some neck and shoulder pain similar because her headaches set off her fibromyalgia. She is still able to range her head freely. No trauma. No other acute complaints at this time. Please note that above description of symptoms, in this electronic medical record under categorization of recalled from ER triage doctor by RN are reflective of an initial nursing assessment, however, is not reflective of my full history and physical exam that was personally taken and clarified. Consequentially, this preceding description of symptoms, which may include the patient's categorized chief complaint in the EMR, do not reflect my personal clinical impression, and the ultimate description of history of present illness and patient stated complaints should be deferred to this section of the note. Unless stated otherwise or congruent with this section of the note, additional signs, symptoms, or incongruence should be interpreted as inaccurate with my clinical impression. Related Data Home Medications ?Medication ?Instructions ?Recorded ?Confirmed eletriptan 20 mg tablet (Relpax) 20 mg PO DAILY MIGRAINE 02/06/18 11/29/24 esomeprazole magnesium 40 mg 40 mg PO DAILY STOMACH 02/06/18 11/29/24 capsule,delayed release metformin 1,000 mg tablet 1,000 mg PO BID Diabetes 02/06/18 11/29/24 nortriptyline 50 mg capsule 50 mg PO DAILY MIAGRAINE 02/06/18 11/29/24 propranolol 80 1 ea PO DAILY Hypertension 02/06/18 11/29/24 mg-hydrochlorothiazide 25 mg tablet ramelteon 8 mg tablet (Rozerem) 8 mg PO DAILY Insomnia 02/06/18 11/29/24 repaglinide 0.5 mg tablet 0.25 mg PO DAILY Diabetes 02/06/18 11/29/24 Previous Rx's ?Medication ?Instructions ?Recorded metronidazole 500 mg tablet 500 mg PO TID #30 tabs 03/05/19 cephalexin 500 mg tablet 500 mg PO BID 10 days #20 tabs 01/22/24 triamcinolone acetonide 0.025 % 1 applic topical BID #15 grams 01/22/24 topical cream hydrocodone 5 mg-acetaminophen 325 1 tab PO Q6H PRN pain #10 tabs 09/07/24 mg tablet Allergies Allergy/AdvReac Type Severity Reaction Status Date / Time duloxetine (From CYMBALTA) Allergy Intermediate LEG Verified 11/29/24 13:41 SWELLING gabapentin (From NEURONTIN) Allergy Intermediate LEG Verified 11/29/24 13:41 SWELLING midazolam (From VERSED) Allergy Intermediate MIGRAINE Verified 11/29/24 13:41 strawberry (STRAWBERRY) Allergy Intermediate MIGRAINES Verified 11/29/24 13:41 Sulfa (Sulfonamide Allergy Intermediate I-HIVES Verified 11/29/24 13:41 Antibiotics) (SULFA (SULFONAMIDE ANTIBIOTICS)) vancomycin (VANCOMYCIN) Allergy Intermediate I-HIVES Verified 11/29/24 13:41 aspirin (ASPIRIN) Allergy Mild MIGRAINES Verified 11/29/24 13:41 codeine (CODEINE) Allergy Mild ITCHING Verified 11/29/24 13:41 metoclopramide Allergy Mild TACHYCARDIA Verified 11/29/24 13:41 (METOCLOPRAMIDE) NSAIDS (Non-Steroidal Allergy Mild GI UPSET Verified 11/29/24 13:41 Anti-Inflamma (NSAIDS (NON-STEROIDAL ANTI-INFLAMMA) DAIRY FOODS (FOOD) Allergy Mild MIGRAINES Uncoded 11/29/24 13:41 PORK Allergy Mild MIGRAINES Uncoded 11/29/24 13:41 [facility] Disclaimer: The information contained in this section may have been updated after the patient was seen, as this information can be updated by other users. 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 Smoking Status: Never smoker alcohol intake: never current occupational status: employed Travel in the last 8 weeks?: None Have you lived/traveled outside US in past 30 days?: No Contact w/someone who lives/traveled outside US past 30 days?: No Exposure to someone with infectious disease in past 14 days?: No Do you have a fever (greater than 100.4 F or 38 C)?: No Have you tested positive for COVID-19?: No Exposed to someone with COVID-19 in past 14 days?: No Do you have a sore throat?: No Do you have a cough?: No Do you have any weakness?: No Do you have any diarrhea?: No Are you experiencing any unusual bleeding?: No Do you have any muscle aches/pain?: No Do you have any abdominal pain?: No Are you experiencing loss of taste or smell?: No Other Medical History Have you received the Flu Vaccine for this season: Yes Have you received the Pneumonia Vaccine: Yes ROS Obtained: Yes Systems reviewed as appropriate & no additional complaints except as documented Physical Exam General General appearance: alert and in no apparent distress Head Head exam: atraumatic and normocephalic Eye Eye exam: Present PERRL and EOMI ENT ENT exam: Present mucous membranes moist Neck Neck exam: Present normal inspection and full ROM; Absent tenderness (No midline tenderness) Chest Chest inspection: Present normal inspection and symmetric chest wall rise Respiratory Respiratory exam: Absent respiratory distress Cardiovascular Cardiovascular exam: Present regular rate and normal rhythm Extremities Exam Extremities exam: Present normal inspection Neurological Exam Neurological exam: Present alert, oriented X3 and CN II-XII intact; Absent motor sensory deficit Psychiatric Psychiatric exam: Present normal affect Skin Skin exam: Present warm and dry Medical Decision Making Medical Records Screening: Per USPSTF and CDC recommendations, given the prevalence of disease in our region, it is our hospital?s policy to screen for HIV and viral Hepatitis for all patients aged 18 and over and those with ongoing risk factors. Jonah Inquiry Pt receiving controlled substance: No Vital Signs: 03/01/25 10:27 03/01/25 10:29 03/01/25 10:30 Temperature 98.2 F Temperature Source Oral Pulse Rate 85 86 Pulse Rate [Right] 80 Respiratory Rate 18 Blood Pressure 140/64 114/57 L Blood Pressure [Right Arm] 140/64 Blood Pressure Mean [Right Arm] 89 02 Sat by Pulse Oximetry 95 96 97 Oxygen Delivery Method Room Air Room Air Room Air 03/01/25 11:01 03/01/25 11:30 Temperature Temperature Source Pulse Rate 87 78 Pulse Rate [Right] Respiratory Rate Blood Pressure 151/49 H 127/47 L Blood Pressure [Right Arm] Blood Pressure Mean [Right Arm] 02 Sat by Pulse Oximetry 95 96 Oxygen Delivery Method Room Air Room Air Lab Data Lab Results 03/01/25 10:40: WBC 7.8, RBC 5.07, Hgb 15.6, Hct 45.6, MCV 89.9, MCH 30.8, MCHC 34.2, RDW 12.4, Plt Count 154, MPV 9.4, Neut % (Auto) 73.0, Lymph % (Auto) 18.6, [place] % (Auto) 7.4, Eos % (Auto) 0.3, Baso % (Auto) 0.4, Neut # (Auto) 5.7, Lymph # (Auto) 1.5, [place] # (Auto) 0.6, Eos # (Auto) 0.0, Baso # (Auto) 0.0, Sodium 138, Potassium 3.4 L, Chloride 98, Carbon Dioxide 29, Anion Gap 14.4, BUN 15, Creatinine 1.00, Estimated Creat Clear 56, Estimated GFR 54 L, Est GFR ( Amer) 65, Glucose 131 H, Calcium 9.3, Total Bilirubin 0.9, AST 37 H, ALT 30, Alkaline Phosphatase 60, Total Protein 7.8, Albumin 4.6, Globulin 3.2, Albumin/Globulin Ratio 1.4, HCV Ab ADARSH w/Rflx PCR Qn Negative, HIV Ag/Ab Combo Qual Negative 03/01/25 10:40 03/01/25 10:40 Orders (Tests/Meds): ED MEDICATIONS Discontinued Medications Generic Name Dose Route Start Last Admin Trade Name Freq PRN Reason Stop Dose Admin Acetaminophen 1,000 mg 03/01/25 10:42 03/01/25 11:08 Acetaminophen 500mg Tab PO 03/01/25 10:43 1,000 mg ONCE ONE Administration Diphenhydramine HCl 25 mg 03/01/25 10:42 03/01/25 11:07 Diphenhydramine 50mg/Ml Vial IV 03/01/25 10:43 25 mg ONCE ONE Administration Lactated Ringer's 1,000 mls @ 999 mls/hr 03/01/25 10:42 03/01/25 11:08 Lactated Ringer's 1000 Ml Bag IV 03/01/25 11:42 999 mls/hr .Q1H1M ONE Administration Iopamidol 93 ml 03/01/25 11:01 03/01/25 11:02 Iopamidol-370 (76%);100ml Bottle IV 03/01/25 11:02 93 ml ONCE ONE Administration Ketorolac Tromethamine 30 mg 03/01/25 11:31 03/01/25 11:44 Ketorolac 30mg/Ml Vial IV 03/01/25 11:32 30 mg ONCE ONE Administration Ondansetron HCl 4 mg 03/01/25 10:42 03/01/25 11:07 Ondansetron 4mg/2ml Vial IV 03/01/25 10:43 4 mg ONCE ONE Administration Prochlorperazine Edisylate 2.5 mg 03/01/25 10:42 03/01/25 11:07 Prochlorperazine 10mg/2ml Vial IV 03/01/25 10:43 2.5 mg ONCE ONE Administration Sodium Chloride 50 ml 03/01/25 11:01 03/01/25 11:02 0.9 % Sodium Chloride 50 Ml Vial IV 03/01/25 11:02 50 ml ONCE ONE Administration Sodium Chloride 10 ml 03/01/25 11:01 03/01/25 11:02 Sodium Chloride 0.9% 10ml Syr (Rad Only) IV 03/01/25 11:02 10 ml ONCE ONE Administration ORDERS Category Date Time Status CT Venogram head Stat Cat Scan 03/01/25 10:[address] head/brain wo con Stat Cat Scan 03/01/25 10:42 Completed CBC w/Auto Diff [Complete Blood Count Auto Diff] Stat Lab 03/01/25 10:40 Completed CMP [Comprehensive Metabolic Panel] Stat Lab 03/01/25 10:40 Completed HIV Combo Stat Lab 03/01/25 10:40 Completed Hepatitis C Ab Qual. W/ RFX Stat Lab 03/01/25 10:40 Completed Medical Decision Narrative: In summary patient is a 74-year-old female past medical history Jarrell above presents emergency department for evaluation of headache. Patient is hemodynamically stable nontoxic-appearing but normal, afebrile with a nonfocal neurologic exam. Although his headache is slightly different from previous differential includes migraine with resultant fibromyalgia flare, venous sinus thrombosis, among others. Given history of sinus infections CT venogram head will be obtained as well as noncontrasted CT scan of the head. Initial inventions include headache cocktail. Patient is ranging her neck freely and given duration of symptoms longer than a week and is currently afebrile with nonfocal neurologic exam and does not appear critically ill have no concern for bacterial meningitis at this time. Initial workup reviewed by me, no significant leukocytosis no transfusable anemia no RAKAN or critical electrolyte abnormality. Noncontrasted CT scan informally interpreted by me no acute large intra-axial hemorrhage or mass occupying lesion with midline shift. Formal read shows no acute pathology. CT venogram left maxillary sinusitis without venous thrombosis that is known to the patient and currently being managed outpatient. Upon repeat evaluation patient had large resolution of her headache and continued nonfocal neurologic status is appropriate for outpatient management at this time was given return precautions. Can Dragger disclaimer Much of this encounter note is an electronic trumpet teacher spoken language to printed text. Electronic trumpet teacher of the spoken language may permit errors. Although I have reviewed the note, some errors may still exist. Critical Care Critical Care Time Critical Care Time: No
[2025-03-01 10:54] LABS: Albumin Level 4.6 g/dl (3.5-5.0); Chloride 98 mmol/L (98-107); Potassium 3.4 mmoL/L (3.5-5.1); Sodium 138 mmol/L (136-145)
[2025-03-01 10:56] LABS: Blood Urea Nitrogen 15 mg/dl (7-17); Creatinine Clearance Estimated 56 mL/min (50-200); Creatinine,Serum 1.00 mg/dl (0.52-1.04); Estimated Glomerular Filt Rate 54 ml/min (>60); GFR (African American) 65 ML/MIN (>60)
[2025-03-01 10:57] LABS: Alanine Aminotransferase 30 U/L (12-78); Albumin/Globulin Ratio 1.4 (1.1-1.8); Alkaline Phosphatase 60 U/L (38-126); Anion Gap 14.4 mEq/L (5-15); Aspartate Amino Transferase 37 U/L (14-36); Bilirubin,Total 0.9 mg/dl (0.2-1.3); Calcium 9.3 mg/dl (8.4-10.2); Carbon Dioxide 29 mmol/L (22.0-30.0); Globulin 3.2 g/dL (1.3-3.2); Glucose 131 mg/dl (74-100); Total Protein,Serum 7.8 g/dl (6.3-8.2)
[2025-03-01 11:01] VITALS: BP 151/49; PULSE 87; O2SAT 95
[2025-03-01] MEDS: 0.9 % SODIUM CHLORIDE 50 ML VIAL IV (11:02)
[2025-03-01] MEDS: SODIUM CHLORIDE 0.9% 10ML SYR (RAD ONLY) 10 ML IV (11:02)
[2025-03-01] MEDS: IOPAMIDOL-370 (76%);100ML BOTTLE 93 ML IV (11:02)
[2025-03-01] MEDS: ONDANSETRON 4MG/2ML VIAL 4 MG IV (11:07)
[2025-03-01] MEDS: PROCHLORPERAZINE 10MG/2ML VIAL 2.5 MG IV (11:07)
[2025-03-01] MEDS: ACETAMINOPHEN 500MG TAB 1000 MG PO (11:08)
[2025-03-01] MEDS: LACTATED RINGERS 1000ML 1,000 ML 999 ML IV (11:08)
[2025-03-01 11:30] VITALS: BP 127/47; PULSE 78; O2SAT 96
[2025-03-01] MEDS: KETOROLAC 30MG/ML VIAL 30 MG IV (11:44)
--- NOTE | 2025-03-01 11:47 | PC.NURSE ---
Gave the patient a blanket
[2025-03-01 12:25] LABS: Hepatitis C Ab Qual. W/ RFX NEGATIVE (Negative)
[2025-03-01 13:06] VITALS: BP 131/49; PULSE 63; RESP 15; TEMP 36.4; O2SAT 95
== END 2025-03-01 13:15 | disposition home or self-care (01) ==
PROVIDERS: Emergency Provider Emergency Medicine; PCP Internal Medicine Adolescent Medicine
DX: R51.9 Headache, unspecified (principal)
CPT/HCPCS: 70450; 70496; 80053; 85025; 86803; 87389; 96361; 96374; 96375; 99285; J0780; J1200; J1885; J2405; J7120; Q9967

== ENCOUNTER 2025-03-11 14:07 | Outpatient (CLI) | payer MEDICARE, SELFPAY ==
--- OUTSIDE RECORDS SUMMARY | 2025-02-01 07:00 | XMS_ITS ---
Author Organization [facility] Address [address] [place] [address] Care Team Providers Care Wafer Fabrication Operator Name Role Phone Estefany Chou Unavailable [phone] Allergies Allergen (clinical drug ingredient) Drug/Non Drug Allergy documented on EMR Reaction Allergy Type Onset Date Status novacaine (uncoded) rash Allergy Active Aleve Unknown Drug Allergy Active amoxicillin / clavulanate Augmentin abdominal pain Drug Allergy Active CODEINE PHOSPHATE (CODEINE PHOSPHATE SOLN) rash Drug Allergy 05/14/2013 Active gabapentin NEURONTIN rash Drug Allergy 05/14/2013 Activ e sulfamethoxazole / trimethoprim SULFAMETHOXAZOLE -TRIMETHOPRIM Anaphylaxis Drug Allergy 05/14/2013 Active vancomycin Vancomycin HCl rash Drug Allergy A ctive REASON FOR VISIT Annual Medications Medication SIG (Take, Route, Frequency, Duration) Notes Start Date End Date Status Anastrozole 1 MG Tablet 1 tablet Orally Once a day Not-Taking/PRN Toujeo SoloStar Not- Taking/PRN Vitamin D Active Nortriptyline HCl Ac tive Relpax Active Trulicity Active Vitamin B12 Active Citrucel Active Folic Acid Active Inderal LA 80 MG Capsule Extended Release 24 Hour 1 capsule Orally Once a day Active Losartan Potassium 50 MG Tablet 1 tablet Orally Once a day Active MiraLax Active RABEprazole Sodium A ctive Basaglar KwikPen Act ameena 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 Tobacco Use: 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 Observation Description Date Details (start date - stop date) Never Smoker NA - NA Sex Assigned At : 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 Observation Description Sex Assigned At Female 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 Drugs/Alcohol: Social Info Question Answer Notes Alcohol Screen Did you have a drink containing alcohol in the past year? Yes How often did you have a drink containing alcohol in the past year? 2 to 4 times a month (2 points) How many drinks did you have on a typical day when you were drinking in the past year? 1 or 2 drinks (0 point) How often did you have 6 or more drinks on one occasion in the past year? Never (0 point) Points 2 Interpretation Negative Tobacco Use: Social Info Question Answer Notes Tobacco Use/Smoking Are you a nonsmoker Vital Signs Blood pressure systolic 120 mm Hg 02/02/20 25 Blood pressure diastolic 60 mm Hg 025 Height 67 in 02/01/2025 Weight 166.8 lbs 02/01/2025 BMI 26.12 kg/m2 02/01/2025 Encounters Encounter Location Date Provider Diagnosis [facility]- [address] [address] 02/01/2025 Estefany Chou Encounter for gynecological examination with abnormal finding Z01.411 ; Breast pain N64.4 and Vulvar lesion N90.89 Assessments Encounter Date Diagnosis (ICD Code) Assessment Notes Treatment Notes Treatment Clinical Notes Section Notes 02/01/2025 Encounter for gynecological examination with abnormal finding (ICD-10 - Z01.411) 02/01/2025 Breast pain (ICD-10 - N64.4) F/U breast exam in 2 weeks. 02/01/2025 Vulvar lesion (ICD-10 - N90.89) F/U in 2 weeks and no further squeezing attempts of the lesions by the patient. Plan Of Treatment Treatment Notes Assessment Notes Breast pain F/U breast exam in 2 weeks. Vulvar lesion F/U in 2 weeks and n o further squeezing attempts of the lesions by the patient. Next Appt Details Follow Up: 2 Weeks, Reason: F/U Provider Name:Estefany Chou, 05/29/2025 11:00:00 AM, [facility] [address], [address], [address], Provider Name:Estefany Chou, 02/03/2026 10:15:00 AM, [address], [place], [address], History and Physical Notes * HPI (History of Present Illness) Category Sub-Category Detail Notes Category Not es General Health Maintenance Presents for annual exam with history of right breast cancer s/p lumpectomy with postop radiation 2016. She is now s/p breast biopsy of right superior lateral breast with path FCC and fat necrosis with no atypia and is s/p 3 previous biopsies of the right breast in the lower, central and 12:00 positions all with fat necrosis path. Screening mammogram BI-RADS 2, and will do high risk breast MRI , BI-RADS 2. She is complaining of 2 weeks of right axillary to right breast pain. She has not palpated a mass. She is scheduled for mammogram screening , and plans 6 month interval high risk MRI. Examination Category Sub-Category Detail Notes Category Not es Gynecological CERVIX: no lesions or di scharge or bleeding, normal appearing VAGINA: no lesions, atrophic EXTERNAL GENITALIA: 2 small erythematous nodules inferior left vulva s/p patient describing squeezing these areas UTERUS: normal mobility, non tender, small size, shape and consistency ADNEXA: no masses or tendern ess bilaterally URETHRA: atrophic, , no papo s URETHRAL MEATUS: atrophic BLADDER: normal , normal DIGITAL RECTAL EXAM General Examination GENERAL APPEARANCE: pleasant , well nourished, in no acute distress with normal respiratory effort ABDOMEN: soft, nontender, no hepatosplenomegaly, no masses palpated BREASTS: S/P right lumpectomy with tenderness right lateral axillary area to right lateral breast from 10-9:00 site and tenderness left breast at 9:00 symmetric to the right breast, nipples unremarkable, no axillary adenopathy, no dimpling, no masses palpated bilaterally, no nipple discharge, no skin changes, no axillary or supraclavicular adenopathy Pipe Organ Mechanic Pipe Organ Mechanic Status Pipe Organ Mechanic prese nt during physical exam. Name: Kirstie López Title: STUDIO OPERATIONS ENGINEER IN CHARGE Progress Notes * Candace BRYANT PDOB:[birth year] (74 yo F)Acc No.[id number]:02/01/2025 Progress Note Patient: Candace VERA Provider: Duane Chou MD :1950 A ge:74 Y S ex:Female Date:02/01/2025 Address:[address] [place] [address], [place], [id number] Subjective: * Chief Complaints: * 1 . Annual. * HPI: G enzofia Health Maintenance: Presents for annual exam with history of right breast cancer s/p lumpectomy with postop radiation 2016. She is now s/p breast biopsy of right superior lateral breast with path FCC and fat necrosis with no atypia and is s/p 3 previous biopsies of the right breast in the lower, central and 12:00 positions all with fat necrosis path. Screening mammogram BI-RADS 2, and will do high risk breast MRI 2023, BI-RADS 2. She is complaining of 2 weeks of right axillary to right breast pain. She has not palpated a mass. She is scheduled for mammogram screening , and plans 6 month interval high risk MRI. * ROS: G eneral/Constitutional: Change in weight d enies. F atigue d enies. ? E NT: Difficulty swallowing d enies. S inus pain d enies.? E ndocrine: Excessive sweating d enies. E xcessive thirst d enies. T hyroid Problems d enies. R espiratory: Shortness of breath at rest d enies. S hortness of breath with exertion a dmits. B reast: Breast lump d enies. B reast pain a dmits right breast. N ipple discharge d enies. C ardiovascular: Chest Pain d enies. C hest pain at rest d enies.? G astrointestinal: Abdominal pain d enies. C hange in bowel habits d enies. G enitourinary: Abnormal vaginal bleeding d enies. F requent urination?denies. P ainful urination d enies. P elvic Pain d enies. V aginal Discharge d enies. M usculoskeletal: Joint stiffness i mproves with activity,admits. P ainful joints d enies. S kin: Rash d enies. S kin lesion(s) d enies. ? * Medical History: * [employer] Round History: P ap Smear History: D ate of Last Pap/HPV: 0 L ast Pap/HPV Results: N ormal Pap M ammogram History: D ate of last mammogram: 0 -2023 R esults/Density B IRADS 2 M enstrual History: C urrently having menstrual cycles? N o R gio for No Menses: P erimenopausal/Menopausal * OB History: G P : 4 Para: 4 * Surgical History: * Hospitalization/Major Diagno stic Procedure: * Family History: M other: . F ather: . M aternal Grand Mother: . M aternal Grand Father: . P aternal Grand Mother: . P aternal Grand Father: . Children: daughter squamous cell carcinoma. S iblings: , sister-melanoma. maternal aunt and maternal cousin-breast no family hx of uterine ovarian or colon cancer mother and MGF-diabetes No family of stroke sister has hx of blood clots. * 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: T obacco Use: T obacco Use/Smoking A re you a n onsmoker D rugs/Alcohol: D rugs D RUG USE: no. Alcohol Screen D id you have a drink containing alcohol in the past year? Y es H ow often did you have a drink containing alcohol in the past year? 2 to 4 times a month (2 points) H ow many drinks did you have on a typical day when you were drinking in the past year? 1 or 2 drinks (0 point) H ow often did you have 6 or more drinks on one occasion in the past year? N ever (0 point) P oints 2 I nterpretation N egative * Medications: T griselda Patricia , Taking Citrucel , Taking Folic Acid , Taking Inderal LA(Propranolol HCl ER) 80 MG Capsule Extended Release 24 Hour 1 capsule Orally Once a day , Taking Losartan Potassium 50 MG Tablet 1 tablet Orally Once a day , Taking MiraLax , Taking Nortriptyline HCl , Taking RABEprazole Sodium , Taking Relpax , Taking Trulicity , Taking Vitamin B12 , Taking Vitamin D , Not-Taking/PRN Anastrozole 1 MG Tablet 1 tablet Orally Once a day , Not-Taking/PRN Toujeo SoloStar , Discontinued amLODIPine Besylate 5 MG Tablet 1 tablet Orally Once a day , Discontinued Cephalexin 500 MG Capsule Oral , Discontinued Lansoprazole 30 MG Capsule Delayed Release Oral , Medication List reviewed and reconciled with the patient * Allergies: C ODEINE PHOSPHATE (CODEINE PHOSPHATE SOLN): rash - Allergy - Onset Date 2013-05-14, NEURONTIN: rash - Allergy - Onset Date 2013-05-14, SULFAMETHOXAZOLE- TRIMETHOPRIM: Anaphylaxis - Allergy - Onset Date 2013-05-14, Vancomycin HCl: rash, Aleve, Augmentin: abdominal pain - Side Effects, novacaine: rash - Allergy. Objective: * Vitals: B P:120/60mm Hg, Ht: 67 in, Wt: 166.8 lbs, BMI:26.12Index. * Examination: C haperone: Pipe Organ Mechanic Status C haperone present during physical exam. Name: Kirstie López Title: STUDIO OPERATIONS ENGINEER IN CHARGE. G eneral Examination: GENERAL APPEARANCE: p leasant, well nourished, in no acute distress with normal respiratory effort. BREASTS: S /P right lumpectomy with tenderness right lateral axillary area to right lateral breast from 10-9:00 s ite and tenderness left breast at 9:00 symmetric to the right breast, nipples unremarkable, no axillary adenopathy, no dimpling, no masses palpated bilaterally, no nipple discharge, no skin changes, n o axillary or supraclavicular adenopathy. ABDOMEN: s oft, nontender, no hepatosplenomegaly, no masses palpated. G ynecological: BLADDER: n ormal , normal. EXTERNAL GENITALIA: 2 small erythematous nodules inferior left vulva s/p patient describing squeezing these areas. URETHRAL MEATUS: a trophic. URETHRA: a trophic, , no masses. VAGINA: n o lesions, atrophic. CERVIX: n o lesions or discharge or bleeding, normal appearing. UTERUS: n ormal mobility, nontender, small s ize, shape and consistency . ADNEXA: n o masses or tenderness bilaterally . ? Assessment: * Assessment: 1. E ncounter for gynecological examination with abnormal finding - Z01.411 (Primary) ? 2 . B reast pain - N64.4 3 . V ulvar lesion - N90.89 Plan: * Treatment: 2. V ulvar lesion Notes: F/U in 2 weeks and no further squeezing attempts of the lesions by the patient. * Follow Up: 2 Weeks (Reason: F/U) * Billing Information: * Visit Code: G0101 Cervical or vaginal cancer screening; pelvic and clinical breast examination. * Procedure Codes: * Sign off status: Completed Visit Status: C HK (Check Out) true * Provider: Duane Chou MD Date: 02/01/2025 Generated for Nayan urbina/Octavio/Bryanitting on: 03/11/2025 02:14 PM EDT
--- OUTSIDE RECORDS SUMMARY | 2025-02-18 06:00 | XMS_ITS ---
Author Organization [facility] Address [address] [place] [address] Care Team Providers Care Patient Financial Rep Name Role Phone Estefany Chou Unavailable [phone] Allergies Allergen (clinical drug ingredient) Drug/Non Drug [...] Diagnosis 1 Breast pain (N64.4) Referral Organization [facility] Referring Provider First Name Estefany Referring [...] 02/18/2025 Encounters Encounter Location Date Provider Diagnosis [facility] [address] [place] [address] 02/18/2025 Estefany José Antonio Breast pain N64.4 [...] Chou, 05/29/2025 11:00:00 AM, [address], [place], [address], Provider Name:Estefany José Antonio, 02/03/2026 10:15:00 AM, [address], [place], [address], History and Physical Notes * HPI (History [...] Candace BRYANT PDOB:[birth year] (74 yo F)Acc No.[id number]:02/18/2025 Progress Note Patient: Asia riddleCandace dickson Provider: Duane Chou MD :1950 A ge:74 Y S ex:Female Date:02/18/2025 Address:[address] [place] [address] [address] [id number] Subjective: * Chief Complaints: * 1 . [...] high risk MRI. 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 * Sign off status: Completed Visit Status: C HK (Check Out) true * Provider: Duane Chou MD Date: 0 02/18/2025 Generated for Nayan urbina/Octavio/Tanesha on: 0 03/11/2025 02:14 PM EDT
--- OUTSIDE RECORDS SUMMARY | 2025-03-05 13:45 | XMS_ITS | Encounter Summary ---
Author Organization [employer] ([place], [place], [place], [place]) Address [address] [place] [address] Care Team Providers Care Equipment Application Specialist Name Role Phone Unavailable Primary Care Provider Unavailabl e Reason for Referral * Consultation (Routine) - Authorized Specialty Diagnoses / Procedures Referred By Helen sellers Referred To Contact Behavioral Health Diagnoses Memory loss Ke Campbell MD [address] [place], [place] [address] [facility] [address] [place] [address] Phone: tel: fax: Test, [facility] Amb Provider-Non Md, PhD Referral ID Status Reason Start Date Expiration Date Visits Requested Visits Authorized [id number] Authorized Specialty Services Required 03/05/2025 03/05/2026 1 1 Scheduling Instructions Please refer to Fernanda Briones or Zayda Mcgee for formal neuropsychology evaluation due to concern for memory deficits * MRI (Routine) - Authorized Specialty Diagnoses / Procedures Referred By Helen t Referred To Contact Radiology Diagnoses Memory loss Procedures MR Brain Without IV Contrast Ke Campbell MD [address] [place] [address] [address] [place] [address] Phone: tel: fax: [facility] [address] [facility] [address] [place] [address] Phone: tel: fax: Referral ID Status Reason Start Date Expiration Date V isits Requested Visits Authorized [id number] Authorized 03/05/2025 03/05/2026 1 1 Reason for Visit * Reason Comments Establish Care * Consultation (Routine) - Closed Specialty Diagnoses / Procedures Referred By Contac t Referred To Contact Neurology Diagnoses Memory loss Graham Jose MD [address] [place] [address] [place] [address] Phone: tel: fax: Ke Campbell MD [facility] [address] [place] [address] Phone: tel: fax: Referral ID Status Reason Start Date Expiration Date V isits Requested Visits Authorized [id number] Closed Specialty Services Required 02/05/2025 02/05/2026 1 1 Encounter Details Date Type Department Care Team (Late st Contact Info) Description 03/05/2025 1:45 PM EDT Office Visit [facility] Neurology - [address] [place] [address] Ke Campbell MD [address] [place] [address] Drive [address] [place] [id number] Memory loss (Primary Dx) 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 Tobacco [...] Date Clifford rded Speak language other than Setswana at home Not on file 11/08/2023 Want [...] on file documented as of this encounter Last Filed Vital Signs Vital Sign Reading Time Taken Comments Blood Pressure 98/61 03/05/2025 2:23 PM EDT Pulse 74 03/05/2025 2:23 PM EDT Temperature - - Respiratory Rate - - Oxygen Saturation 96% 03/05/2025 2:23 PM EDT Inhaled Oxygen Concentration - - Weight 73.2 kg (161 lb 6.4 oz) 03/05/2025 2:23 P M EDT Height 175.3 cm (5' 9 ) 03/05/2025 2:23 PM EDT Body Mass Index 23.83 03/05/2025 2:23 PM EDT documented in this encounter Progress Notes * Ke Campbell MD - 03/05/2025 1:45 PM EDT Neuro - Consult Date of Service: 03/05/2025 Subjective: Chief Complaint Patient presents with Establish Care Candace Bryant is a 74 y.o. female who presents to clinic as a referral from Dr. Graham Jose due to concern for memory deficits. MMSE: 03/05/2025: Pt notes that memory deficits first noticed when having issues recalling people names 2023. Pt sometimes forgets details of conversation and frequently repeating previously asked questions. Misplacing items occasionally. ~08/2024-word finding difficulties noted-stopping mid-sentence. No effect on performance of her work. Pt is personally managing finances and medication-has pillbox. Denies difficulty with bADLs ie self care tasks-bathing, dressing, shaving, toileting. Still driving. Centrally acting medication: Weaned off nortriptyline Anticoagulation: None Implantable devices: None Hx of malignancy: Breast CA in 2017-XRT and lumpectomy-anastrozole for 5 years. Psychosocial stressors: has stage IV cancer FHx of dementia-sister. Review of Systems Constitutional: Negative. Neurological: Negative. The patient's medical history, surgical history, and social history were reviewed and updated as appropriate. Objective: BP 98/61 Pulse 74 Ht 1.753 m (5' 9 ) Wt 73.2 kg (161 lb 6.4 oz) SpO2 96% BMI 23.83 kg/m?? Mental Status - Alert. General Appearance - Cooperative. Not in acute distress. Build & Nutrition - Well nourished. HEENT - Eye Note: Pupils equal, reactive to light and to accommodation directly and consensually Peripheral Vascular - Upper Extremity: Inspection - Bilateral - Normal. Neurologic Mental Status: Speech - Normal. Cranial Nerves: III Oculomotor: Pupillary constriction - Bilateral - Normal. Note: no ptosis, no Alejandrina's sign, no Conor Jacinda pupil VII Facial: - Normal and symmetric facial muscles. Eye Movements: - PERRL. EOMI. Sensory: Intact to light touch in all 4 extremities. Reflexes: 2+ throughout. Cerebellar: No ataxia or dysmetria on FTN Musculoskeletal: Motor: Tone: Normal. Bulk: Normal. Strength: 5/5 bilaterally in the upper and lower extremities. Gait: Normal Assessment: 1. Memory loss Plan: Diagnoses and all Orders for this Visit: 1. Memory loss MR Brain Without IV Contrast DONNA MISCELLANEOUS LAB ORDER Vitamin B12 Folate, Serum Ambulatory referral to Behavioral Health Follow Up: Return in about 4 weeks (around 04/02/2025). Discussion and Summary: Candace Bryant is a 74 y.o. female who presents to clinic as a referral from Dr. Graham Jose due to concern for memory deficits. MMSE: 03/05/2025: Pt notes that memory deficits first noticed when having issues recalling people names 2023. Pt sometimes forgets details of conversation and frequently repeating previously asked questions. Misplacing items occasionally. ~08/2024-word finding difficulties noted-stopping mid-sentence. No effect on performance of her work. Pt is personally managing finances and medication-has pillbox. Denies difficulty with bADLs ie self care tasks-bathing, dressing, shaving, toileting. Still driving. Centrally acting medication: Weaned off nortriptyline Anticoagulation: None Implantable devices: None Hx of malignancy: Breast CA in 2017-XRT and lumpectomy-anastrozole for 5 years. Psychosocial stressors: has stage IV cancer FHx of dementia-sister. We will complete work-up for reversible causes of memory loss including B12 and folate. Patient is being referred for formal neuropsychology evaluation. We will defer initiation of memoryenhancing medication pending complete evaluation. In the setting of rapid progression in memory loss will also refer patient for MRI brain without contrast to assess for any intracranial pathology contributing to presentation. For diagnostic clarity we will refer patient for p-tau 217 blood test to determine if this is potentially Alzheimer's disease. If this test is positive we will consider utility of CSF studies. Follow up in clinic in 1 month. Pt understands they can call the clinic at anytime with questions. Time spent on the date of encounter: 45 minutes. Time includes time spent reviewing previous medical records, time spent [id number] with patient, counseling/education, putting in orders and electronic documentation. documented in this encounter Plan of Treatment Upcoming Encounters Date Type Department Care Team (Late st Contact Info) Description 03/25/2025 8:00 AM EDT Appointment [facility] [address] [facility] [address] [place] [address] Ke Campbell MD [address] [place] [address] [address] [place] [address] 04/02/2025 11:45 AM EDT Office Visit [facility] Neurology - [facility] [address] [facility] [address] [place] [address] Ke Campbell MD [address] [place] [address] [address] [place] [address] Scheduled Orders Name Type Priority Associated Diagnoses Orde r Schedule MR Brain Without IV Contrast Imaging Routine Memory loss Expected: 03/05/2025, Expires: 09/05/2026 Scheduled Referrals Name Type Priority Associated Diagnoses Order Schedule Ambulatory referral to Behavioral Health Outpatient Referral Routine Memory loss Ordered: 03/05/2025 documented as of this encounter Procedures Procedure Name Priority Date/Time Associated Diagnosis Comments [id number]([facility]) Routine 03/05/2025 3:2 4 PM EDT VITAMIN B12 Routine 03/05/2025 3:24 PM EDT Memory loss FOLATE, SERUM Routine 03/05/2025 3:24 PM EDT Memory loss documented in this encounter Results * (ABNORMAL) [id number] (03/05/2025 3:24 PM EDT) [id number] 0.30(H) 0.00 - 0.18 pg/mL [facility] Comment: Clinical cutoff value was established using samples from a patient cohort characterized with amyloid PET data. A p-efj992 value of >0.18 is a reported surrogate marker for beta amyloid pathology, and can be used to facilitate biological identification of Alzheimer's disease (1). p-eaw369 has also been used in clinical trials to monitor patients on anti-amyloid therapy (2,3). Test performed by [employer] chemiluminescent enzyme immunoassay (CLEIA). Values obtained with different methods cannot be used interchangeably. The validated limit of quantification is 0.06 pg/mL. Assay detection limit is 0.03 pg/mL. FOOTNOTES Comment [facility] Comment: 1. Adair Thurman, et al. Diagnostic Accuracy of a Plasma Phosphorylated Tau 217 Immunoassay for Alzheimer Disease Pathology. [place] neurology (2023). 2. Adair Thurman, et al. Differential roles of A42/40, p-ule539 and p-pcz877 for Alzheimer's trial selection and disease monitoring. Nature medicine 28.12 (2021): 5684-0825. 3. Chong RIOS, Patt M, Anel SC, et al. Association of Donanemab Treatment With Exploratory Plasma Biomarkers in Early Symptomatic Alzheimer Disease: A Secondary Analysis of the TRAILBLAZER-ALZ Randomized Clinical Trial . [place] Neurol. 2021;79(12):6316-5421. 03/05/2025 3:24 PM EDT 03/05/2025 Narrative [facility] - 03/08/2025 2:06 AM EDT Test(s) [id number] was developed and its performance characteristics determined by [facility]. It has not been cleared or approved by the Food and Drug Administration. Performed at: 01 - [employer] [address] [place] [id number] Liquefaction Supervisor: Ashu Hawkins MD, Phone: [phone] Ke Campbell MD LAB BLOOD ORDERABLES Final Resul t [facility] * Folate, Serum (03/05/2025 3:24 PM EDT) Folate (Folic Acid), Serum >20.0 >3.0 ng/mL [facility] Comment: A serum folate concentration of less than 3.1 ng/mL is considered to represent clinical deficiency. Blood 03/05/2025 3:24 PM EDT 03/05/2025 Narrative [facility] - 03/08/2025 2:06 AM EDT Performed at: [address] [place] [id number] Liquef[employer] Supervisor: Damion Rea PhD, Phone: [phone] Ke Campbell MD LAB BLOOD ORDERABLES Final Resul t Performing Organization Address [facility] de Phone Number [facility] * (ABNORMAL) Vitamin B12 (03/05/2025 3:24 PM EDT) Vitamin B12 >2000(H) 232 - 1245 pg/mL [facility] 03/05/2025 3:24 PM EDT 03/05/2025 Narrative [facility] - 03/08/2025 2:06 AM EDT Performed at: [address] [id number] Liqu[employer] Supervisor: Damion Rea PhD, Phone: [phone] Ke Campbell MD LAB BLOOD ORDERABLES Final Resul t Performing Organization Address [facility] Co de Phone Number [facility] documented in this encounter Visit Diagnoses Diagnosis Memory loss- Primary documented in this encounter
--- OUTSIDE RECORDS SUMMARY | 2025-03-11 14:13 | XMS_ITS | Encounter Summary ---
Author Organization [employer] ([place], [place], [place], [place]) Address [address] [place] [address] Care Team Providers Care Conference Services Director Name Role Phone Unavailable Primary Care Provider Unavailabl e Encounter Details Date Type Department Care Team (Latest Contact Info) Description 03/05/2025 Travel 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 Tobacco Use Types Packs/Day Years [...] Date Clifford rded Speak language other than Georgian at home Not on file 11/08/2023 Want [...] Info) Description 03/25/2025 8:00 AM EDT Appointment [facility] [address] [facility] [address] [place] [address] Ke Campbell MD [address] [place] [address] [address] [place] [address] 04/02/2025 11:45 AM EDT Office Visit [facility] Neurology - [address] [facility] [address] [place] [address] Ke Campbell MD [address] [facility] [address] [place] [address] documented as of this encounter Visit Diagnoses Not on filedocumented in this encounter
--- OUTSIDE RECORDS SUMMARY | 2025-03-11 14:13 | XMS_ITS | Encounter Summary ---
Author Organization [employer] ([place], [place], [place], [place]) Address [address] [place] [address] Care Team Providers Care Assistant Laboratory Director Name Role Phone Unavailable Primary Care Provider Unavailabl e Reason for Referral * Consultation (Routine) - Closed Specialty Diagnoses / Procedures Referred By Contac t Referred To Contact Neurology Diagnoses Memory loss Graham Jose MD [address] [facility] [address] [place] [address] Phone: tel: fax: Ke Campbell MD [address] [employer] [facility] [address] [place] [address] Phone: tel: fax: Referral ID Status Reason Start Date Expiration Date V isits Requested Visits Authorized [id number] Closed Specialty Services Required 02/05/2025 02/05/2026 1 1 Encounter Details Date Type Department Care Team (Late st Contact Info) Description 02/05/2025 Outside Orders [facility] Neurology - [address] [employer] [address] [place] [address] Graham Jose MD [address] [facility] [address] [place] [address] Memory loss (Primary Dx) 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 Tobacco [...] Date Clifford rded Speak language other than Tristanian at home Not on file 11/08/2023 Want [...] Info) Description 03/25/2025 8:00 AM EDT Appointment [facility] [address] [facility] [address] [place] [address] Ke Campbell MD [address] [place] [address] [address] [place] [address] 04/02/2025 11:45 AM EDT Office Visit [facility] Neurology - [address] [place] [address] Ke Campbell MD [address] [place] [address] [address] [place] [address] Scheduled Referrals Name Type Priority Associated Diagnoses Order Schedule Ambulatory referral to Neurology Outpatient Referral Routine Memory loss Ordered: 02/05/2025 documented as of this encounter Visit Diagnoses Diagnosis Memory loss- Primary documented in this encounter
--- OUTSIDE RECORDS SUMMARY | 2025-03-11 14:14 | XMS_ITS | Clinical Summary ---
Author Organization [employer] ([place], [place], [place], [place]) Address [address] [place] [address] Care Team Providers Care Hostess Name Role Phone Unavailable Primary Care Provider Unavailabl e Allergies Active Allergy Reactions Criticality Noted Date Comments Amoxicillin 03/05/2025 Other Reaction(s): Not available amoxicillin Amoxicillin-Pot Clavulanate 03/05/2025 Other Reaction(s): abdominal pain Celecoxib 05/13/2015 Ciprofloxacin Hcl Other (See Comments) 11/15/2023 Extreme abdominal pian Ciprofloxacin Low 03/05/2025 Other Reaction(s): abdominal pain, GI Intolerance Abdominal pain Clarithromycin Other (See Comments) 02/02/2007 Was told not to take with migraine medication Biaxin Clindamycin 12/27/2014 Other Reaction(s): Other (See Comments) Upset stomach GI upset; abdominal pain Clindamycin Hcl Nausea Only 10/02/2012 Codeine Rash,Itching,Nause a Only Medium 02/02/2007 Other Reaction(s): Not available Itching And rash Duloxetine Other (See Comments),Swelling High 02/09/2011 Other Reaction(s): Not available LEG SWELLING Fentanyl 12/27/2014 Other Reaction(s): Other (See Comments) migraine Gabapentin Rash,Swelling High 04/12/2013 Other Reaction(s): Unknown (See Comments) Doesn't remember reaction - thinks it was leg swelling as well Hydrocodone Itching,Nausea Only,Rash Low 02/06/2019 Hydrocodone-Acetaminophe n Nausea Only 10/02/2012 Indomethacin Sodium 05/13/2015 Levofloxacin Other (See Comments) High 01/03/2018 Ruptured tendons and trigger finger Lidocaine Rash Low 03/05/2025 lidocaine Metformin Diarrhea 07/19/2019 Other Reaction(s): GI Intolerance Metoclopramide Hcl 12/27/2014 Other Reaction(s): Other (See Comments) migraine Midazolam Hcl 04/24/2014 Other Reaction(s): Not available Naproxen Sodium 03/05/2025 Other Reaction(s): Unknown Nebivolol Palpitations,Swell ing High 05/09/2015 Other Reaction(s): Unknown (See Comments) palpitations Doesn't remember reaction Nsaids (Non-Steroidal Anti-Inflammatory Drug) Other (See Comments) High 09/03/2009 Bleeding ulcers Other Reaction(s): Other (See Comments) ulcers GI ulcers Other Reaction(s): GI Bleeding ulcer Other Other (See Comments) 09/03/2009 Pork and strawberries Substance with prostaglandin-endope roxide synthase isoform 2 inhibitor mechanism of action (substance) Pregabalin Swelling High 05/13/2015 Lower legs Sulfa (Sulfonamide Antibiotics) Swelling High 02/02/2007 Other Reaction(s): Not available GENERALIZED SWELLING Sulfamethoxazole-Trimeth oprim Anaphylaxis,Swelli ng High 05/14/2013 GENERALIZED SWELLING Tilactase Other (See Comments) 05/31/2017 Migraines Topiramate Rash,Other (See Comments) High 02/11/2022 Lasts days Other Reaction(s): Not available Vancomycin Rash,Hives,Other (See Comments) High 12/27/2014 extreme rash for days Red Man's Syndrome Vancomycin Hcl Rash Low 07/12/2013 Other Reaction(s): Not available Medications * This document contains information received from the source organization and may not represent a complete record from that organization. azelastine (ASTELIN) 137 mcg (0.1 %) nasal [...] mouth 3 (three) times daily. 4 Active propranoloL (Inderal LA) 80 MG 24 hr capsule 1 capsule (80 mg total). Active propranoloL (INDERAL) 80 MG tablet Take 1 tablet (80 mg total) by mouth daily. Active nortriptyline (PAMELOR) 50 MG capsule Take 70 mg by mouth daily. Active Trulicity 4.5 mg/0.5 mL syringe 5 Active zolpidem (AMBIEN CR) 12.5 MG CR tablet Take 1 tablet (12.5 mg total) by mouth. Active valerian root 500 mg cap Take by mouth. Acti ve RABEprazole (ACIPHEX) 20 mg EC tablet TAKE 1 TABLET BY MOUTH ONCE DAILY FOR REFLUX. 5 Active polyethylene glycol (GLYCOLAX) 17 gram packet Take 17 g by mouth daily. Active pimecrolimus (ELIDEL) 1 % cream Apply by topical route for 22 days. Active BD Ultra-Fine Tanya Insulin Pen [place] 4 mm x 32 G Inject under the skin. Active nitroglycerin (NITROSTAT) 0.[address] under the tongue. 5 Active mupirocin (BACTROBAN) 2 % ointment Apply topically 3 (three) times daily. 5 Active methylPREDNISo lone (MEDROL DOSEPACK) 4 mg tablet SMARTSIG:- Tablet(s) By Mouth - 5 Active methylcellulos e oral powder Take by mouth daily. Active insulin glargine-yfgn (SEMGLEE) 100 unit/mL (3 mL) pen Inject 80 Units under the skin nightly. 5 Active hydrALAZINE (APRESOLINE) 25 MG tablet Take 1 tablet (25 mg total) by mouth 3 (three) times daily. Active furosemide (LASIX) 20 MG tablet Take 1 tablet (20 mg total) by mouth daily. Active fluorouraciL (EFUDEX) 5 % cream APPLY A SUFFICIENT AMOUNT TO COVER THE LESIONS IN THE AFFECTED AREA(S) BY TOPICAL ROUTE 2 TIMES PER DAY FOR 2-3 WEEKS. WASH HANDS AFTER EACH APPLICATION Active esomeprazole (NexIUM) 40 MG capsule Take by mouth. Activ e diphenoxylate- atropine (LOMOTIL) 2.5-0.025 mg per tablet Take by mouth. 5 Active clopidogreL (PLAVIX) 75 mg tablet Take 1 tablet every day by oral route. Active clobetasoL (TEMOVATE) 0.05 % cream APPLY A THIN LAYER TO THE AFFECTED AREA(S) BY TOPICAL ROUTE 2 TIMES PER DAY 1-2 WEEKS UNTIL POISON ALEN RESOLVES 5 Active anastrozole (ARIMIDEX) 1 mg tablet 1 tablet Orally Once a day Active amoxicillin-cl avulanate (AUGMENTIN) 875-125 mg per tablet Take 1 tablet twice a day by oral route with meals for 10 days. Active Active Problems Problem Noted Date Diagnosed [...] 11/18/2023 SOB (shortness of breath) 05/13/20152023 Encounters * This document contains information received from the source organization and may not represent a complete record from that organization. Date Type Department Care Team Description 03/05/2025 1:45 PM EDT Office Visit [facility] [facility] [address] [address] Ke Campbell MD Memory loss (Primary Dx) 03/05/2025 Travel 02/05/2025 Outside Orders [facility] [employer] [facility] [address] [address] Graham Jose MD Memory loss (Primary Dx) [...] Date Clifford rded Speak language other than Faroese at home Not on file 11/08/2023 Want [...] Pulse 74 03/05/2025 2:23 PM EDT Temperature 36.6 C (97.8 F) 11/25/2023 10:05 AM EDT Respiratory Rate 20 11/25/2023 10:05 AM EDT Oxygen Saturation 96% 03/05/2025 2:23 PM EDT Inhaled Oxygen Concentration - - Weight 73.2 kg (161 lb 6.4 oz) 03/05/2025 2:23 P M EDT Height 175.3 cm (5' 9 ) 03/05/2025 2:23 PM EDT Body Mass Index 23.83 03/05/2025 2:23 PM EDT Plan of Treatment Upcoming Encounters Date Type Department Care Team (Late st Contact Info) Description 03/25/2025 8:00 AM EDT Appointment [facility] [address] [facility] [address] [place] [address] Ke Campbell MD [address] [place] [address] [address] [place] [address] 04/02/2025 11:45 AM EDT Office Visit [facility] Neurology - [address] [place] [address] Ke Campbell MD [address] [place] [address] Health Maintenance Due Date Last Done Comments [...] Additional history exists Falls Risk Screening 08/29/2024 Influenza Vaccine (#1) 2025 , 06/10/2023, 07/13/2022, Additional history exists Tobacco Cessation Counseling and Screening (12+) 03/05/2026 03/05/2025 Shingles Vaccine (Zoster) Completed 2020, 07/31/2020, 01/07/2016 Breast Cancer Screening Discontinued 02/28/20 25, 10/13/2023, 09/03/2022, Additional history exists Procedures Procedure Name Priority Date/Time Associated Diagnosis Comments [id number]([facility]) Routine 03/05/2025 3:2 4 PM EDT FOLATE, SERUM Routine 03/05/2025 3:24 PM EDT Memory loss VITAMIN B12 Routine 03/05/2025 3:24 PM EDT Memory loss from Last 3 Months Results * (ABNORMAL) [id number] (03/05/2025 3:24 PM EDT) P-xiq715 0.30(H) 0.00 - 0.18 pg/mL [facility] Comment: Clinical cutoff value was established using samples from a patient cohort characterized with amyloid PET data. A p-xqj950 value of >0.18 is a reported surrogate marker for beta amyloid pathology, and can be used to facilitate biological identification of Alzheimer's disease (1). p-ezz748 has also been used in clinical trials to monitor patients on anti-amyloid therapy (2,3). Test performed by [employer] chemiluminescent enzyme immunoassay (CLEIA). Values obtained with different methods cannot be used interchangeably. The validated limit of quantification is 0.06 pg/mL. Assay detection limit is 0.03 pg/mL. FOOTNOTES Comment [facility] Comment: 1. Adair Thurman, et al. Diagnostic Accuracy of a Plasma Phosphorylated Tau 217 Immunoassay for Alzheimer Disease Pathology. [facility] neurology (2023). 2. Adair Thurman, et al. Differential roles of A42/40, p-fra838 and p-ijn372 for Alzheimer's trial selection and disease monitoring. Nature medicine 28.12 (2021): 2481-8621. 3. Chong RIOS, Patt M, Anel SC, et al. Association of Donanemab Treatment With Exploratory Plasma Biomarkers in Early Symptomatic Alzheimer Disease: A Secondary Analysis of the TRAILBLAZER-ALZ Randomized Clinical Trial . [place] Neurol. 2021;79(12):9000-6914. 03/05/2025 3:24 PM EDT 03/05/2025 Narrative [facility] - 03/08/2025 2:06 AM EDT Test(s) [id number] was developed and its performance characteristics determined by [facility]. It has not been cleared or approved by the Food and Drug Administration. Performed at: 01 - [facility] [address] [place] [address], [place] [id number] Customer Account Technician: Ashu Hawkins MD, Phone: [phone] Ke Campbell MD LAB BLOOD ORDERABLES Final Resul t [facility] * (ABNORMAL) Vitamin B12 (03/05/2025 3:24 PM EDT) Vitamin B12 >2000(H) 232 - 1245 pg/mL [facility] 03/05/2025 3:24 PM EDT 03/05/2025 Narrative [facility] - 03/08/2025 2:06 AM EDT Performed at: [facility] [id number] Customer Account Technician: Damion Rea PhD, Phone: [phone] Ke Campbell MD LAB BLOOD ORDERABLES Final Resul t Performing Organization Address [facility] Co de Phone Number [facility] * Folate, Serum (03/05/2025 3:24 PM EDT) [facility] Folate (Folic Acid), Serum >20.0 >3.0 ng/mL [facility] Comment: A serum folate concentration of less than 3.1 ng/mL is considered to represent clinical deficiency. Blood 03/05/2025 3:24 PM EDT 03/05/2025 Narrative [facility] - 03/08/2025 2:06 AM EDT Performed at: [facility] [id number] Customer Account Technician: Damion Rea PhD, Phone: [phone] Ke Campbell MD LAB BLOOD ORDERABLES Final Resul t Performing Organization Address City/[facility] de Phone Number [facility] from Last [address] [place] [address] [place] [phone] MEDICARE PART A B [facility] SUPP
--- OUTSIDE RECORDS SUMMARY | 2025-03-11 14:14 | XMS_ITS | Patient Health Record ---
Author Organization [facility] [place] Address [address] [place] [address] Care Team Providers Care Salesperson Burial Needs Name Role Phone Estefany Chou Unavailable [phone] Allergies Allergen (clinical drug ingredient) Drug/Non Drug [...] of concern indicated by the patient. A lower elwha marker is placed over a visible skin [...] Diagnosis 1 Breast pain (N64.4) Referral Organization [facility] Referring Provider First Name Estefany Referring Provider [...] history of primary malignant neoplasm of breast (604790491) Personal history of breast cancer (Z85.3) Active confirmed Problem Gynecological examination normal ([id number] ) Cervical smear, as part of routine gynecological examination (Z01.419) 09/19/19 21 Active confirmed Annual without abnormal findings Vital Signs Blood pressure diastolic 64 mm Hg 02/18/2025 Height 67 in 02/18/2025 Blood pressure systolic 122 mm Hg 02/18/2025 Weight 166 lbs 02/18/2025 BMI 26 kg/m2 02/18/2025 Encounters Encounter Location Date Provider Diagnosis [facility] [address] [facility] [address] [place] [address] 02/18/2025 Estefany Chou Breast pain N64.4 ; Pain in right axilla M79.621 and Personal history of breast cancer Z85.3 [facility] [address] [address] 02/01/2025 Estefany Chou Encounter for gynecological examination [...] Name:Estefany Chou, 05/29/2025 11:00:00 AM, [address], [address], Provider Name:Estefany Chou, 02/03/2026 10:15:00 AM, [facility] [address], [address], Insurance Providers Payer Name Payer Address Payer Phone Subscriber Number Group Number Insured Name Patient Relationship to Insured Coverage Start Date Coverage End Date [place] [address] [place] [address] [id number] Candace Bryant Self - patient is the insured [facility] [address] [place], [place] [id number] Candace Bryant Self - patient is [...]
--- OUTSIDE RECORDS SUMMARY | 2025-03-11 14:14 | XMS_ITS | Referral Summary ---
Author Organization [facility] ([place], [place], [place], [place]) Address [address] [place] [address] Care Team Providers Care Ammunition And Explosives Handler Name Role Phone Unavailable Primary Care Provider Unavailabl e Encounters * This document contains information received from the source organization and may not represent a complete record from that organization. Date Type Department Care Team Description 03/05/2025 Travel 03/05/2025 1:45 PM EDT Office Visit [facility] [address] [place] [phone] Ke Campbell MD Memory loss (Primary Dx) 02/05/2025 Outside Orders [facility] ([email or web address])[address] [phone] Graham Jose MD Memory loss (Primary Dx) [...] days. Active BD Ultra-Fine Tanya Insulin Pen [place] 4 mm x 32 G Inject under the skin. 5 Active nitroglycerin (NITROSTAT) 0.4 MG SL tablet [...] 2.5-0.025 mg per tablet Take by mouth. Active clopidogreL (PLAVIX) 75 mg tablet Take 1 tablet every day by oral route. Active clobetasoL (TEMOVATE) 0.05 % cream APPLY A THIN LAYER TO THE AFFECTED AREA(S) BY TOPICAL ROUTE 2 TIMES PER DAY 1-2 WEEKS UNTIL POISON ALEN RESOLVES Active anastrozole (ARIMIDEX) 1 mg tablet 1 [...] Date Clifford rded Speak language other than Bulgarian at home Not on file 11/08/2023 Want [...] Info) Description 03/25/2025 8:00 AM EDT Appointment [facility] [address] [place] [address] Ke Campbell MD [address] [place] [address] [address] [place] [address] 04/02/2025 11:45 AM EDT Office Visit [facility] Neurology - [address] [place] [id number] Ke Campbell MD [address] [place] [address] Procedures Procedure Name Priority Date/Time Associated Diagnosis Comments [id number]([facility]) Routine 03/05/2025 3:2 4 PM EDT FOLATE, SERUM Routine 03/05/2025 3:24 PM EDT Memory loss VITAMIN B12 Routine 03/05/2025 3:24 PM EDT Memory loss from Last 3 Months Results * (ABNORMAL) [id number] (03/05/2025 3:24 PM EDT) P-owq122 0.30(H) 0.00 - 0.18 pg/mL [facility] Comment: Clinical cutoff value was established using samples from a patient cohort characterized with amyloid PET data. A p-luf610 value of >0.18 is a reported surrogate marker for beta amyloid pathology, and can be used to facilitate biological identification of Alzheimer's disease (1). p-zvc348 has also been used in clinical trials to monitor patients on anti-amyloid therapy (2,3). Test performed by [employer] chemiluminescent enzyme immunoassay (CLEIA). Values obtained with different methods cannot be used interchangeably. The validated limit of quantification is 0.06 pg/mL. Assay detection limit is 0.03 pg/mL. FOOTNOTES Comment [facility] Comment: 1. Adair Thurman, et al. Diagnostic Accuracy of a Plasma Phosphorylated Tau 217 Immunoassay for Alzheimer Disease Pathology. [facility] neurology (2023). 2. Adair Thurman, et al. Differential roles of A42/40, p-kqr466 and p-vym720 for Alzheimer's trial selection and disease monitoring. Nature medicine 28.12 (2021): 4528-8316. 3. Chong RIOS, Patt M, Anel SC, et al. Association of [place] Treatment With Exploratory Plasma Biomarkers in Early Symptomatic Alzheimer Disease: A Secondary Analysis of the TRAILBLAZER-ALZ Randomized Clinical Trial . [place] Neurol. 2021;79(12):1895-5056. 03/05/2025 3:24 PM EDT 03/05/2025 Narrative [facility] - 03/08/2025 2:06 AM EDT Test(s) [id number] was developed and its performance characteristics determined by [facility]. It has not been cleared or approved by the Food and Drug Administration. Performed at: - [facility] [address] [place] [id number] Service Shop Foreman: Ashu Hawkins MD, Phone: [phone] Ke Campbell MD LAB BLOOD ORDERABLES Final Resul t Performing Organization Address City/[facility] Co de Phone Number [facility] * (ABNORMAL) Vitamin B12 (03/05/2025 3:24 PM EDT) Vitamin B12 >2000(H) 232 - 1245 pg/mL [facility] 03/05/2025 3:24 PM EDT 03/05/2025 Narrative [facility] - 03/08/2025 2:06 AM EDT Performed at: [facility] [id number] Service Shop Foreman: Damion Rea PhD, Phone: [phone] Ke Campbell MD LAB BLOOD ORDERABLES Final Resul t Performing Organization Address City/[facility] Co de Phone Number [facility] * Folate, Serum (03/05/2025 3:24 PM EDT) Folate (Folic Acid), Serum >20.0 >3.0 ng/mL [facility] Comment: A serum folate concentration of less than 3.1 ng/mL is considered to represent clinical deficiency. Blood 03/05/2025 3:24 PM EDT 03/05/2025 Narrative [facility] - 03/08/2025 2:06 AM EDT Performed at: [facility] [id number] Service Shop Foreman: Damion Rea PhD, Phone: [phone] us Ke Campbell MD LAB BLOOD ORDERABLES Final Resul t [facility] from Last 3 Months Insurance MEDICARE [place] [address] [address]
--- OUTSIDE RECORDS SUMMARY | 2025-03-11 14:14 | XMS_ITS | Clinical Summary ---
Author Organization [facility] Address [address] [place] [address] Care Team Providers Care Filer Helper Name Role Phone Graham Jose MD Primary Care Provider [phone] Source Comments This information has been disclosed [...] therelease of HIV test results or diagnoses. [id number] Health Allergies Active Allergy Reactions Criticality Noted [...] Additional history exists Immunization: Influenza (MyC tan) (#1) 2025 07/13/2022, 06/28/2021, 04/15/2020, Additional history exists [...] - 5.6 % 01/11/2023 4:37 AM EDT [facility] Comment: Hemoglobin A1c Interpretation Guidelines: [...] MD LAB BLOOD ORDERABLES Final Resul t [facility] [address] [place] [address], [facility] from Last 3 Months or Most Recently Relevant to Health Maintenance Insurance [employer] MEDICARE A AND B Care Teams Filer Helper Relationship Specialty Start Date End Date Graham Jose MD [address] [place] [address] [place] [address] PCP - General Internal Medicine 08/04/22
--- OUTSIDE RECORDS SUMMARY | 2025-03-11 14:14 | XMS_ITS | Clinical Summary ---
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 CEFDINIR 300 MG CAPS one cap po bid 02/23 CEFDINIR 80361412226 Espinoza Malone MD. CEFTRIAXONE SODIUM 2 GM SOLR 2 gms IV Q 24 hrs/OPAT 01/26 CEFTRIAXONE SODIUM 05265015611 Karime Ramey RN CEFDINIR 300 MG CAPS one cap po bid 02/09 CEFDINIR 62621696713 Espinoza Malone MD. NORTRIPTYLINE HCL 50 MG CAPS take 1 capsule every night NORTRIPTYLINE HCL 85283091226 Yoselin Mclain NORTRIPTYLINE HCL 50 MG CAPS take 1 capsule every night 11/27 NORTRIPTYLINE HCL 80258249307 Yoselin Mclain NYSTATIN 234904 UNIT/ML SUSP 5 mL swish and swallow 4 times daily 01/01 NYSTATIN 54832479685 Espinoza Malone MD. CEFTRIAXONE SODIUM 2 GM SOLR 2 gms IV Q 24 hrs/OPAT 01/26 CEFTRIAXONE SODIUM 67220697160 Renay Hood RN BUDESONIDE 0.5 MG/2ML SUSP Inhale 2 puffs twice daily BUDESONIDE 85114166243 Valarie S GENTAMICIN SULFATE SOLN Irrigate bilateral nares daily GENTAMICIN SULFATE SOLN 46646170650 Valarie S NORTRIPTYLINE HCL 10 MG CAPS take 1 capsule daily 12/15 NORTRIPTYLINE HCL 64643102639 Valarie S VITAMIN D3 25 MCG (1000 UT) CAPS take 1 capsule daily CHOLECALCIFEROL 65821447463 Kaveh Pelaez ROZEREM 8 MG TABS take 1 tablet every night RAMELTEON 01268677683 Kaveh Pelaez RELPAX 20 MG TABS take 1 tablet b.i.d. ELETRIPTAN HYDROBROMIDE 83943357172 Kaveh Pelaez PROPRANOLOL HCL ER 80 MG [id number] take 1 capsule daily PROPRANOLOL HCL 54268062015 Kaveh Pelaez NORTRIPTYLINE HCL 50 MG CAPS take 1 capsule every night 0 11/27 NORTRIPTYLINE HCL 36342531637 Kaveh Pelaez NORTRIPTYLINE HCL 10 MG CAPS take 1 capsule daily 12/15 NORTRIPTYLINE HCL 83259960247 Kaveh Pelaez NEXIUM 24HR 20 MG TBEC take 1 tablet nightly ESOMEPRAZOLE MAGNESIUM 19588209772 Kaveh Pelaez MUPIROCIN 2 % OINT swab inside the nose b.i.d. MUPIROCIN 35115967225 Kaveh Pelaez METFORMIN HCL 1000 MG TABS take 1 tablet b.i.d. METFORMIN HCL 78757567154 Kaveh Pelaez GENTAMICIN SULFATE 40 MG/ML SOLN inject daily as directed 02/26 GENTAMICIN SULFATE 38383309945 Kaveh Pelaez ESOMEPRAZOLE MAGNESIUM 40 MG CPDR ESOMEPRAZOLE MAGNESIUM 75041751918 Kaveh Pelaez DYMISTA 137-50 MCG/ACT SUSP 1 spray to each nostril b.i.d. AZELASTINE-FLUTIC ASONE 01542400424 Kaveh Pelaez Medications Administered No information available. Allergies, Adverse Reactions, Alerts Allergy Name Reaction Description Start Date Severity Statu s Provider MEDROL Unknown No Longer Active Am leslee S NSAIDS Critical Active Valarie S VERSED Critical Active Valarie S SULFA Critical Active Valarie S MIDAZOLAM HCL Moderate Active Kaveh Pelaez VANCOMYCIN HCL Moderate Active Coar e M BACTRIM Moderate Active Kaveh Pelaez REGLAN Moderate Active Kaveh Pelaez PREDNISONE Moderate Active Kaveh Pelaez MEDROL rash Moderate No Longer Active Aki averye Latanya LORTAB nausea Moderate Active Kaveh Pelaez GABAPENTIN rash Moderate Active Kaveh Pelaez CYMBALTA Moderate Active Kaveh Pelaez ALEVE ulcers Severe Active Kaveh Pelaez CODEINE [...] in Serum or Plasma Lab Report: COMPREHENSIVE MO TABOLIC PANEL ANIONGAP 3.0 mmol/L 3.0-11.0 anion [...] Documenta tion of current medications (procedure) DIET LAYOUT MAN yes Dietary management education, guidance, and counseling [...] Ceftazidime CPT- stat weekly Stat Weekly Labs [id number] CBC with Differential 2016 CPT-64272 CMP CPT-80317 C- reactive protein CPT-61697 Sedimentation Rate (ESR) 201 03/01/26 CPT-ca Continue IV antibiotics 2016 CPT-wpc Weekly PICC Line Care 12/22 CPT-J0696 Ceftriaxone CPT-indio New IV antibiotic CPT-13384 PICC Line Insertion CPT-J0696 Ceftriaxone [id number] CBC with Differential 2016 CPT-69324 Sedimentation Rate (ESR) 201 03/01/19 CPT-73506 C- reactive protein CPT-59364 CMP CPT-cwl Weekly Labs (Continue) 12/15 CPT-wpc Weekly PICC Line Care 12/15 CPT- stat weekly Stat Weekly Labs 87192 Hepatitis C Atb: (ICD 10 Code: 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
--- OUTSIDE RECORDS SUMMARY | 2025-03-11 14:15 | XMS_ITS | Clinical Summary ---
Author Organization [facility] Address [address] [place] [address] Care Team Providers Care Lamp Shade Assembler Name Role Phone Graham Jose MD Primary Care Provider [phone] Allergies Active Allergy Reactions Criticality Noted Date [...] Screening 1948 [facility]-Medicare Annual Wellness (AWV) 1948 [facility]-Infant/Child/Adol SDOH Screenings 1948 [facility]- SDOH Screenings 1966 [facility]-Adult SDOH Screenings 1966 [facility]-DTaP,Tdap,and Td Vaccines (1 - Tdap) 1967 [facility]-Pneumococcal Vaccine: 50+ Years (1 of 1 - PCV) 1998 [facility]-RSV Vaccine: 60+ Years or (1 - 1-dose 75+ series) 2023 [facility]-Bone Density Scan 11/20/2023 11/19/2021 , 02/12/2020, 07/07/2017 [id number] Vaccine ( season) 2024 06/10/2021, 10/21/2020, 09/26/2020 [...] age to complete this topic Insurance MEDICARE [facility] Care Teams Lamp Shade Assembler Relationship Specialty Start Date End Date Graham Jose MD [address] [place] [address] [place] [address] PCP - General 01/09/21
--- OUTSIDE RECORDS SUMMARY | 2025-03-11 14:15 | XMS_ITS | Clinical Summary ---
Author Organization [facility] Address [address] [place] [phone] Phone Care Team Providers Care Recorder Of Deeds Name Role Phone Graham Jose MD Unavailable [phone] Shellie Hodges MD Unavailable [phone] Graham Jose MD Primary Care Provider [phone] Allergies Active Allergy Reactions Criticality Noted Date [...] Active azelastine (ASTELIN) 137 mcg Nasl Aerosol, [place] 2 Sprays by Each Nare route 2 [...] PM EDT) Hep C Ab Negative Negative [facility] Blood specimen (specimen) 12/27/2014 3:17 PM EDT 12/27/2014 5:56 PM EDT Shellie Hodges MD IMMUNOLOGY ORDERABLES Fin al Result Performing Organization Address City/State/[facility] Co de Phone Number [facility] [address] [place] [address] from Last 3 Months or Most Recently Relevant to Health Maintenance Insurance [employer] MEDICARE PART A HB on file ANTHEM PPO * Guarantor: Candace Bryant Account Type Relation to Patient Date of Phone Billing Address [place] Personal Family Self Care Teams Recorder Of Deeds Relationship Specialty Start Date End Date Graham Jose MD [address] [place] [address] PCP - General Internal Medicine-Adolescent Medicine 05/09/15 Graham Jose MD [address] [place] [phone] Internal Medicine-Adolescent Medicine 12/27/14 Shellie Hodges MD [address] [place] [address] Internal Medicine-Rheumatology 12/27/14
--- OUTSIDE RECORDS SUMMARY | 2025-03-11 14:15 | XMS_ITS | Continuity of Care Document ---
Author Organization [facility] Address [address] [facility] [facility] [address] [place] [address] Care Team Providers Care Dermatologist Managing Partner Name Role Phone SHOAIB CHAUHAN Bruise Trimmer JERSEY NAVAS Automatic Oven Operator TAYLER SWEENEY OTHER VIKTORIA CORDOVA OTHER YURY CESAR OTHER GRAHAM JEAN Primary Care Provider [phone] SERA NO Breast Surgeon GRAHAM CORONA Urologist VALARIE MEYERS Brass Cleaner YURY ANDERSON Irrigator Overhead VENKATA MORRIS Community Organizer LU WRIGHT General Surgeon Assessment Encounter Date Assessment Date Assessment LastModified by Organization Details LastModified Time 01/30/2025 01/30/2025 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 *Daughter passed in October 2019 from metastatic SCC pelvis* Daughter lives in [facility], Son in law is a check pilot, has 3 grandchildren [email or web address] Not available 02/03/2025 19:45:44 Plan of Treatment Reminders Order Date Submit Date Provider Last Modified By Organization Details Last Modified Time Details Appointments RECHECK 2024 10:30A Latanya GRIFFIN MD Not available Not available Not available ESTABLISH ED PT VISIT 2024 02:45P M LOUISE ROSS PA-C Not available Not available Not available RECHECK 2025 11:45A M VENKATA MORRIS WEIGHT CALLER Not available Not available Not available Lab surgical pathology study 2024 025 [facility], [address] [place] [address], [address], 02/01/2025 16:09:08 Referral None recorded. Procedures None recorded. Surgeries None recorded. Imaging None recorded. Medication Orders clobetaso l 0.05 % topical cream 2024 025 [facility], [address], [address], [place], [address], 01/30/2025 16:58:32 Patient TargetsNo targets recorded. Patient Instructions Encounter Date Encounter Id Patient Instructions Last Modified By Organization Details Last Modified Time 01/30/2025 [id number] Education/alt/ri s ks/benefits/SE of Dx & Tx discussed. Daily UV protection with broad-spectrum SPF 30+ on exposed areas recommended. Pt encouraged to RTC with any new/changing lesions. [email or web address] Not available 01/30/2025 08:26:58 Reason for Referral None Reported. Problems Name Problem SNOMED Code Status Onset Date Resolution Date Notes Provider Name and Address Organization Details Recorded Time Low back pain 732848058 Active 2016 BALA RAHMAN, PT [address] [place], [address] , [facility] 7 12:34:12 Abnormal posture 01774987 Active 2016 BALA RAHMAN, PT [address] [place], [address] , [facility] 7 12:34:14 Muscle weakness 26547130 Active 2016 BALA RAHMAN, PT [address] [place], [address] , [facility] 7 12:34:15 Lumbar spine stiff 549467904 Active 2016 BALA RAHMAN, PT [address] [place], [address] , [facility] 7 12:34:16 Nasal polyp Active 2015 From Automated Load;Prov ider: Shoaib Chauhan;Sta tus: Active Not Available [facility] 7 06:09:08 Contusion of rib 837052573 Active 2017 BALA RAHMAN, PT [address] [place], [address] , [facility] 8 18:42:00 Stiff back 968936011 Active 2017 BALA RAHMAN, PT [address] [place], [address] , [facility] 8 18:42:01 Rib pain 867652102 Active 2017 BALA RAHMAN, PT [address] [place], [address] , [facility] 8 18:42:03 Infection of sebaceous cyst 608839606 Active 2017 left thigh Lilli Graves [facility] 8 14:27:30 Osteoarth ritis of joint of hand 39986416 Active 2019 BALA RAHMAN, PT [address] [place], [address] , [facility] 0 19:51:53 Pain in right hand 43349971825 9109 Active 2019 BALA RAHMAN, PT [address] [place], [address] , [facility] 0 19:51:55 Stiffness of joint of right hand 43776620112 9106 Active 2019 BALA RAHMAN, PT [address] [place], [address] , [facility] 0 19:51:57 Contractu re of joint of finger of left hand due to scar 89397795697 653645 Active 2019 BALA RAHMAN, PT [address] [place], [address] , [facility] 0 17:06:15 Thumb joint stiff 442203257 Active 2019 BALA RAHMAN, PT [address] [place], [address] , [facility] 0 17:06:30 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 78894019 Active 2019 BALA RAHMAN, PT [address] [place], [address] , [facility] 0 17:07:01 Pain of right shoulder joint 59734619589 822389 Active 2019 BAAL RAHMAN, PT [address] [place], [address] , [facility] 0 18:53:50 Essential hypertens ion 68738813 Active 2021 KAMILAH LOPEZ, WEIGHT CALLER [address] [place], [address] , [facility] 2 16:55:28 Type 2 diabetes mellitus 85526600 Active 2021 KAMILAH LOPEZ, WEIGHT CALLER [address] [place], [address] , [facility] 2 16:55:41 Palpitati ons 00125741 Active 2021 KAMILAH LOPEZ, WEIGHT CALLER [address] [place], [address] , [facility] 2 16:55:59 Supravent ricular tachycard ia 8730938 Active 2021 KAMILAH LOPEZ, WEIGHT CALLER [address] [place], [address] , [facility] 2 16:56:26 Tendiniti s of right forearm 20756631473 214653 Active 2022 BALA RAHMAN, PT [address] [place], [address] , [facility] 3 15:01:54 Atrophy of muscle of right shoulder 03232144473 9104 Active 2022 BALA RAHMAN, PT [address] [place], [address] , [facility] 3 15:01:58 Lateral epicondyl itis 174528296 Active 2022 BALA RAHMAN, PT [address] [place], [address] , [facility] 3 19:19:45 Spasm 40660692 Active 2022 BALA RAHMAN, PT [address] [place], [address] , [facility] 3 19:19:50 Melanocyt ic nevus of trunk 955363495 Active 2015 From Automated Load;Prov ider: Torito IsaacsS tatus: Active Not Available [facility] 6 05:16:00 Acute sinusitis 65748748 Active 2015 From Automated Load;Prov ider: Shoaib Chauhan;Sta tus: Active Not Available [facility] 6 05:16:00 Sinusitis 29262248 Active 2015 From Automated Load;Prov ider: Shoaib Chauhan;Sta tus: Active Not Available [facility] 6 05:16:00 Vasomotor rhinitis 3563031 Active 2015 From Automated Load;Prov ider: Shoaib Chauhan;Sta tus: Active Not Available [facility] 6 05:16:00 Hypertrop hy of nasal turbinate s 12055175 Active 2015 From Automated Load;Prov ider: Shoaib Chauhan;Sta tus: Active Not Available [facility] 6 05:16:00 Pain in right knee Active 2014 From Automated Load;Prov ider: Low Peter;St atus: Active Not Available [facility] 6 05:16:00 Dyspnea 594670345 Active 2014 From Automated Load;Prov ider: Valarie Meyers;Sta tus: Active Not Available [facility] 6 05:16:00 Acquired trigger finger 4712613 Active 2014 From Automated Load;Prov ider: Graham Dykes;S tatus: Active Not Available [facility] 6 05:16:00 Idiopathi c osteoarth ritis 923573224 Active 2014 From Automated Load;Prov ider: Low Peter;St atus: Active Not Available [facility] 6 05:16:00 Insomnia 936942954 Active 2015 From Automated Load;Prov ider: Valarie Meyers;Sta tus: Active Not Available [facility] 6 05:16:00 Eczema 16158932 Active 2015 From Automated Load;Prov ider: Mery Isaacs;S tatus: Active Not Available [facility] 6 05:16:01 Senile hyperkera tosis 786302528 Active 2015 From Automated Load;Prov ider: Mery Isaacs;S tatus: Active Not Available [facility] 6 05:16:01 Lentigo Active 2015 From Automated Load;Prov ider: Mery Isaacs;S tatus: Active Not Available [facility] 6 05:16:01 Lateral epicondyl itis 723707794 Active 2014 From Automated Load;Prov ider: Graham Dykes;S tatus: Active Not Available [facility] 6 05:16:01 Obstructi ve sleep apnea syndrome 74308571 Active 2014 From Automated Load;Prov ider: Valarie Meyers;Sta tus: Active Not Available [facility] 6 05:16:01 Problem Notes None recorded. Procedures Surgical History Date Name Laterality Status Provider Name and Address Organization Details Recorded Time 025 Destruction [place] Lesion; trunk, arm, leg completed Steph Washington [facility] 01/30/2025 15:00:42 025 Biopsy Skin Lesion; Tangential completed LOUISE ROSS PA-C [address] [place], [address], [facility] 02/03/2025 19:43:10 025 Endoscopy Nasal; Diagnostic completed LAUREN GRIFFIN MD [address] [place], [address], [facility] 12/28/2024 14:10:00 025 Endoscopy Nasal; Biospy, Polypectomy or Debridement completed Laila Bhatia [facility] 11/27/2024 15:18:30 024 Stress Test - Nuclear completed YURY MORELAND MD [address] [place], [address], [facility] 08/09/2024 16:32:59 024 Biopsy Skin Lesion; Tangential completed Fernanda Matute [facility] 08/01/2024 15:29:33 024 EKG completed VENKATA MORRIS APRN [address] [place], [address] 07/06/2024 11:30:16 024 Synvisc One Injection completed Diana Maldonado [facility] 06/05/2024 11:20:07 024 Destruction Premalignant Lesion(s) completed Andreina Muse [facility] 01/30/2024 15:37:40 024 Synvisc One Injection completed Diana Maldonado [facility] 09/20/2023 15:05:25 024 Laryngoscopy Flex completed Vincent De La Rosa [facility] 09/08/2023 14:40:07 023 Destruction Premalignant Lesion(s) completed Andreina Muse [facility] 07/11/2023 14:11:59 023 Diffusion Capacity completed VALARIE MEYERS PA-C [address] [place], [address], [facility] 04/26/2023 16:53:09 023 Lung Volumes, Plethysmography completed VALARIE MEYERS PA-C [address] [place], [address], [facility] 04/26/2023 16:53:12 023 Spirometry completed VALARIE MEYERS PA-C [address] [place], [address], [facility] 04/26/2023 16:53:16 023 Tympanogram completed TAMIR PHAM, AUD [address] [place], [address], [facility] 02/11/2023 09:56:33 023 Audiogram completed TAMIR PHAM, AUD [address] [place], [address], [facility] 02/11/2023 09:56:25 023 Winner-Hallpike completed YURY OROZCO, WEIGHT CALLER [address] [place], [address], [facility] 02/11/2023 11:04:26 023 Cerumen removal - Instruments, Unilateral completed YURY OROZCO, WEIGHT CALLER [address] [place], [address], [facility] 02/11/2023 11:04:16 023 Destruction Premalignant Lesion(s) completed Andreina Muse [facility] 01/06/2023 10:05:27 023 EKG completed VENKATA MORRIS, WEIGHT CALLER [address] [place], [address], [facility] 12/22/2022 12:14:26 023 PT Manual Therapy completed BALA RAHMAN, PT [address] [place], [address], [facility] 11/16/2022 13:59:41 023 PT Therapeutic Exercise completed BALA RAHMAN, PT [address] [place], [address], [facility] 11/16/2022 13:57:57 023 PT Ultrasound completed BALA RAHMAN, PT [address] [place], [address], [facility] 11/16/2022 13:59:49 023 PT Manual Therapy completed BALA RAHMAN, PT [address] [place], [address], [facility] 11/08/2022 19:18:33 023 PT Therapeutic Exercise completed BALA RAHMAN, PT [address] [place], [address], [facility] 11/08/2022 19:15:09 023 PT Ultrasound completed BALA RAHMAN, PT [address] [place], [address], [facility] 11/08/2022 19:18:24 023 PT Evaluation - Low Complexity completed BALA RAHMAN, PT [address] [place], [address], [facility] 10/20/2022 14:53:00 023 PT Therapeutic Exercise completed BALA RAHMAN, PT [address] [place], [address], [facility] 10/20/2022 14:53:28 023 Endoscopy Nasal; Diagnostic completed Sherie Hudson [facility] 09/02/2022 11:51:54 022 Destruction BN Lesions completed Aleshia [facility] 07/05/2022 11:04:13 022 Destruction MN Lesion; trunk, arm, leg completed Aleshia [facility] 03/31/2022 16:29:14 017 Review of Med Recs/Compl forms completed Angella [facility] 02/03/2017 12:14:00 017 Endoscopy Nasal; Diagnostic completed [facility] 01/06/2017 09:51:33 017 Endoscopy Nasal; Biospy, Polypectomy or Debridement [facility]2016 13:51:14 017 Nasopharyngoscopy completed Angella Aparicio [facility] 11/10/2016 11:32:31 017 Review of Med Recs/Compl forms completed Angella Aparicio [facility] 11/10/2016 11:27:30 017 Endoscopy Nasal; Biospy, Polypectomy or Debridement completed Maria Ines Stiles [facility] 11/04/2016 13:17:46 017 PT Therapeutic Exercise completed BALA RAHMAN, PT [address] [place], [address], [facility] 10/05/2016 14:10:15 017 PT Therapeutic Exercise completed BALA RAHMAN, PT [address] [place], [address], [facility] 09/29/2016 12:33:26 017 PT Evaluation - Low Complexity completed BALA RAHMAN, PT [address] [place], [address], [facility] 09/29/2016 12:33:09 017 Endoscopy Nasal; Biospy, Polypectomy or Debridement completed Sherie Hudson [facility] 09/23/2016 13:58:53 Imaging Results None recorded. Procedure Notes None recorded. Medical Equipment None Reported. Allergies Allergen ID Allergen Name Allergen Category Reaction Reaction Severity Criticality Documentation Date Start Date Code Code System Note Provider Name and Address Organization Details Recorded Time 442049 prednison e medicatio n Not available Not available Not available 07/22/20162009 8640 RxNorm Mary sanches [facility] 8 10:24:29 868058 clindamyc in hydrochlo ride medicatio n nausea Not available Not available 07/22/20162012 72746 RxNorm Candace sanches [facility] 7 09:10:31 728819 vancomyci n hydrochlo ride medicatio n Not available Not available Not available 07/22/20162012 84013 RxNorm Candace Richardso n [facility] 7 09:11:12 616899 acetamino phen / hydrocodo ne medicatio n nausea severe Not available 07/22/20162010 69931 2 RxNorm React ion: NAUSE A;Sev erity : Sever e; Comme nt: Creat ed By: Jennifer fernandez Date: 2010 4:54: 20 PM; Not Available [facility] 6 10:18:05 965921 Substance with prostagla ndin-endo peroxide synthase isoform 2 inhibitor mechanism of action (substanc e) Not available other Not available Not available 07/22/20162009 52215 0005 SNOMED Comme nt: CAUSE ULCER S Candace Brown mere [facility] 7 09:10:42 191808 Substance with sulfonami de structure and antibacte rial mechanism of action (substanc e) medicatio n Not available Not available Not available 07/22/20162006 80275 8003 SNOMED Candace Brown mere [facility] 7 09:11:08 394951 Reglan medicatio n Not available Not available Not available 07/22/20162009 9230 RxNorm Mary Cevallos [facility] 4 10:03:21 521484 Cymbalta medicatio n Not available Not available Not available 07/22/20162010 86818 4 RxNorm Candace Brown mere [facility] 7 09:10:46 004639 gabapenti n medicatio n rash Not available Not available 07/22/20162012 26038 RxNorm Candace Brown mere [facility] 7 09:10:51 658469 Medrol medicatio n rash Not available Not available 07/22/20162014 93977 2 RxNorm Mary Cevallos [facility] 8 10:24:22 051280 codeine medicatio n Not available Not available Not available 07/22/20162006 2670 RxNorm Candace Brown mere [facility] 7 09:10:34 941230 Biaxin medicatio n other Not available Not available 07/22/20162006 9 RxNorm Comme nt: PT ON RELPA X SHOUL D NOT TAKE BIAXI N WITH THIS DRUG Candace Brown n [facility] 7 09:10:23 070041 midazolam hydrochlo ride medicatio n Not available Not available Not available 07/22/2016201312 8 RxNorm Candace Brown n [facility] 7 09:11:14 526549 acetamino phen / hydrocodo ne medicatio n nausea Not available Not available 07/23/2016201218 2 RxNorm Candace severino [facility] 7 09:10:55 711327 Cipro medicatio n abdominal pain Not available Not available 02/13/201868727 3 RxNorm Mary Cevallos [facility] 8 10:25:49 026119 Topamax medicatio n Not available Not available Not available 12/14/202122317 3 RxNorm Margaritavalerie Cole [facility] 2 11:53:05 085403 Non-stero idal anti-infl ammatory agent (product) medicatio n Not available Not available Not available 12/14/2021 56345 005 SNOMED Margaritayuriy Cole [facility] 2 11:53:13 360217 amoxicill in medicatio n Not available Not available Not available 09/12/2024 723 RxNorm Notif ied of aller gy 09/12 Ginny Hernández [facility] 5 15:26:18 301931 lidocaine medicatio n rash Not available Not available 11/27/2024 6387 RxNorm decli gideon topic al lidoc carleen due to rash/ burni ng Jeny Stone [facility] 5 15:04:06 Medications Name Sig Start [...] Not Available gentamici n 01/06 completed with budying de for nasal lavage Not Available Not [...] Available Not Available Not Available Fluarix Quad 2708-0624 (PF) 60 mcg (15 mcg x 4)/0.5 [...] Tobacco Smoking Status Never Smoker Patricia sanches [facility] 08/24/2016 13:57:44 What Is Your Level Of Caffeine Consumption? Occasional Information not available 10/31/2017 How Much Tobacco Do You Chew? None [email or web address] Information not available 11/05/2020 Which Of Your [...] available 11/19/2021 What Is Your Relationship Status? [email or web address] Information not available 11/19/2021 How Much Tobacco Do You Smoke? No [email or web address] Information not available 11/05/2020 Has Tobacco Cessation Counseling Been Provided? No Information not available 12/22/2022 How Many Years Have You Smoked Tobacco? 0 [email or web address] Information not available 11/05/2020 Have You Recently Traveled Abroad? No [email or web address] Information not available 11/19/2021 Sex: Female Functional Status Question Answer Note LastModified by Organizat ion Details LastModified Time Do you use any illicit or recreational drugs? No Information not available 10/31/2017 Do you or have you ever used any other forms of tobacco or nicotine? No Information not available 06/30/2022 What is your level of alcohol consumption? Occasional one glass of wine daily Information not available 11/05/2020 Do you or have you ever used smokeless tobacco? Never used smokeless tobacco [email or web address] Information not available 11/05/2020 Are you currently employed? 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 Never used electronic cigarettes [email or web address] Information not available 11/05/2020 What is your [...] Stones N Hyperthyroidism N Heart Arrhythmia N Hernia Y Emphysema N Esophagus/swallowing troubles N Hypothyroidism N Glaucoma N Lung Disease N Depression N Pneumonia Y Anesthesia Complications N Anxiety Disorder N Hearing Loss Y Arthritis Y Acid Reflux (GERD) Y Cancer Y Stroke N Hoarseness N Radiation Therapy Y Alcohol Overuse/Alcohol Abuse N High Cholesterol Y Liver Disease N Snoring problems N Headaches Y Kidney Disease N Allergies/Hayfever Y Heart Problems Y Squamous Cell Carcinoma Y Mental handicap N Ear or Hearing Problems N Gallbladder Disease N Migraines Y Thyroid Problems Y Goiter N Anemia N Immune System Disorder N Chest Pain N Stomach trouble N Heart Attack (CA) N Ulcers Y Diabetes Y Rheumatic Fever N Bleeding Disorder [...] mcg/0.3 mL dose 09/25/2020 completed Marino Hernandez [facility] 12/11/2024 15:52:44 COVID-19, mRNA, LNP-S, PF, 30 mcg/0.3 mL dose 10/21/2020 completed Marino David [facility] 12/11/2024 15:52:44 COVID-19, mRNA, LNP-S, PF, 30 mcg/0.3 mL dose 06/11/2021 completed Marino Hernandez [facility] 12/11/2024 15:52:44 Past Encounters Encounter ID Performer Location Encounter Start Date Encounter Closed Date Diagnosis/Indication Diagnosis SNOMED-CT Code Diagnosis ICD10 Code Diagnosis Note [id number] VENKATA MORRIS APRN CARDIOLOG Y [address] [place] [address] 01/25/2025 12:36:16 01/25/2025 13:52:07 Coronary arteriosclerosis 95498271 I25.[address] [facility] gat ston score = 161Left [...] mo for ongoing management Supraventr icular tachycardia 7345021 I47.10 Stable. No evidence of recurrence most recent heart monitor. continue with BB. Obstructiv e sleep apnea syndrome 68884000 G47.33 Not currently treating Hypertensive disorder 38 633377 I10 Stable.Low sodium diet. Type 2 dereje betes mellitus 39310354 E11.9 PCP monitoring . Hyperlipidemia 23818518 E78.5 Notes she cannot take statin, notes it caused peripheral neuropathy Discussed importance of tight control of lipids d/t Hx of CADLDL goal < 55, consider PSCK9-I if not attained given her history of non-obs CADPrimary care monitoring [id number] LOUISE ROSS PA-C [facility] [address] [place] [address] 01/30/2025 14:03:50 01/30/2025 16:47:15 History of squamous cell carcinoma of skin 513910719 Z85.828 L posterior leg s/p MohsL calf s/p EDC 2021 No EOR, will continue to monitor History of malignant basal cell neoplasm of skin 980529826 Z85.828 L clavicle s/p EDC - No EOR, continue to monitor History of squamous cell carcinoma in situ 0792128800 9105 Z86.008 L shoulder s/p EDC - No EOR, continue to monitor History of actinic keratosis 0449832635 104 Z87.2 Previously treated with cryotherap y and 5FU topical cream Solar lentiginosis 83892 2007 L81.4 Benign reassuranc e Raised panchito orrheic keratosis 4292681490 13120 L82.1 Benign reassuranc e Hemangioma 370295469 D18 .00 Benign reassuranc e Multiple b enign melanocytic nevi 536521327 D22.9 Benign reassuranc e Pilar cyst of scalp 4011 86800 L72.11 Benign reassuranc eShe states they have grown but she does not want to have them excised at this time. 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 Regular self-skin exams recommende d. Pt encouraged to RTC with any new/changi ng lesions. Allergic c ontact dermatitis caused by urushiol from [place] poison hesham 506016948 L23.7 She has used clobetasol in the past w/ benefit Neoplasm o f uncertain behavior of skin 08578286 D48.5 a. left proximal lateral upper arm r/o SCC - ED&C todayb. 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 946647782 C44.629 left proximal lateral upper armClinica l [...] Guarantor Name 01/30/2025 1 [place] Candace Joyner Manny [id number] Candace Joyner Manny 01/30/2025 2 AARP (MEDICARE SUPPLEMENT) Candace Joyner Manny [id number] Candace Melgozamack Notes Date Note Type Note [...] history of melanoma (sister). RAKESH NGUYENC [address] [place], [address], [facility] 02/03/2025 19:46:23 OBGyn Episode No OBEpisode recorded.
--- OUTSIDE RECORDS SUMMARY | 2025-03-11 14:15 | XMS_ITS | Continuity of Care Document ---
Author Organization [facility], CARDIOLOGY [facility] Address [address] [place] [address] Care Team Providers Care Professor Of Communication Name Role Phone SHOAIB CHAUHAN Stunt Man [phone] JERSEY NAVAS Clubhouse Manager TAYLER SWEENEY OTHER VIKTORIA CORDOVA OTHER YURY CESAR OTHER GRAHAM JEAN Primary Care Provider SERA NO Breast Surgeon GRAHAM CORONA Urologist VALARIE MEYERS Clam Digger YURY ABRAHAM Suppository Molding Machine Operator [phone] VENKATA MORRIS Asic Engineer LU WRIGHT General Surgeon Assessment No assessment recorded. Plan of Treatment Reminders Order Date Submit Date Provider Last Modified By Organization Details Last Modified Time Details Appointments RECHECK 2024 10:30A M LAUREN GRIFFIN MD Not available Not available Not available ESTABLISH ED PT VISIT 2024 02:45P M LOUISE ROSS PA-C Not available Not available Not available RECHECK 2025 11:45A Latanya MORRIS HAND BENDER Not available Not available Not available Lab None recorded. Referral None recorded. Procedures None recorded. Surgeries None recorded. Imaging None recorded. Medication Orders None recorded. Patient TargetsNo targets recorded. Patient Instructions Encounter Date Encounter Id Patient Instructions Last Modified By Organization Details Last Modified Time 01/25/2025 [id number] supraventricular tachycardia: care instructions Not available 01/25/2025 15:29:58 high blood press ure: care instructions Not available 01/25/2025 15:29:58 high cholesterol : care instructions Not available 01/25/2025 15:29:58 coronary artery disease: care instructions Not available 01/25/2025 15:29:58 Reason for Referral None Reported. Problems Name Problem SNOMED Code Status Onset Date Resolution Date Notes Provider Name and Address Organization Details Recorded Time Low back pain 604425598 Active 2016 BALA RAHMAN, PT [address] [place], [address] , [facility] 7 12:34:12 Abnormal posture 04419040 Active 2016 BALA RAHMAN, PT [address] [place], [address] , [facility] 7 12:34:14 Muscle weakness 86341789 Active 2016 BALA RAHMAN, PT [address] [place], [address] , [facility] 7 12:34:15 Lumbar spine stiff 024620615 Active 2016 BALA [facility]HMAN, PT [address] [facility] [place], [address] , [facility] 7 12:34:16 Nasal polyp Active 2015 From Automated Load;Prov ider: Shoaib Chauhan;Sta tus: Active Not Available [facility] 7 06:09:08 Contusion of rib 730520089 Active 2017 BALA RAHMAN, PT [address] [place], [address] , [facility] 8 18:42:00 Stiff back 432929035 Active 2017 BALA RAHMAN, PT [address] [place], [address] , [facility] 8 18:42:01 Rib pain 674616124 Active 2017 BALA RAHMAN, PT [address] [place], [address] , [facility] 8 18:42:03 Infection of sebaceous cyst 867928691 Active 2017 left thigh Lilli sanches, [facility] 8 14:27:30 Osteoarth ritis of joint of hand 33805436 Active 2019 BALA RAHMAN, PT [address] [place], [address] , [facility] 0 19:51:53 Pain in right hand 31019713551 9109 Active 2019 BALA RAHMAN, PT [address] [place], [address] , [facility] 0 19:51:55 Stiffness of joint of right hand 07101257417 9106 Active 2019 BALA RAHMAN, PT [address] [place], [address] , [facility] 0 19:51:57 Contractu re of joint of finger of left hand due to scar 55808889704 199748 Active 2019 BALA RAHMAN, PT [address] [place], [address] , [facility] 0 17:06:15 Thumb joint stiff 181172471 Active 2019 BALA RAHMAN, PT [address] [place], [address] , [facility] 0 17:06:30 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 92487635 Active 2019 BALA RAHMAN, PT [address] [place], [address] , [facility] 0 17:07:01 Pain of right shoulder joint 73943187825 430219 Active 2019 BALA RAHMAN, PT [address] [place], [address] , [facility] 0 18:53:50 Essential hypertens ion 94562793 Active 2021 AKMILAH LOPEZ, HAND BENDER [address] [place], [address] , [facility] 2 16:55:28 Type 2 diabetes mellitus 34937908 Active 2021 KAMILAH LOPEZ, HAND BENDER [address] [place], [address] , [facility] 2 16:55:41 Palpitati ons 52308695 Active 2021 KAMILAH LOPEZ, HAND BENDER [address] [place], [address] , [facility] 2 16:55:59 Supravent ricular tachycard ia 9075882 Active 2021 KAMILAH LOPEZ, HAND BENDER [address] [place], [address] , [facility] 2 16:56:26 Tendiniti s of right forearm 96389985257 160445 Active 2022 BALA RAHMAN, PT [address] [place], [address] , [facility] 3 15:01:54 Atrophy of muscle of right shoulder 66364837395 9104 Active 2022 BALA RAHMAN, PT [address] [place], [address] , [facility] 3 15:01:58 Lateral epicondyl itis 401380246 Active 2022 BALA RAHMAN, PT [address] [place], [address] , [facility] 3 19:19:45 Spasm 87379985 Active 2022 BALA RAHMAN, PT [address] [place], [address] , [facility] 3 19:19:50 Melanocyt ic nevus of trunk 405281718 Active 2015 From Automated Load;Prov ider: Mery Isaacs;Frankie chi: Active Not Available [facility] 6 05:16:00 Acute sinusitis 70309865 Active 2015 From Automated Load;Prov ider: Shoaib Chauhan;Sta tus: Active Not Available [facility] 6 05:16:00 Sinusitis 58635140 Active 2015 From Automated Load;Prov ider: Shoaib Chauhan;Sta tus: Active Not Available [facility] 6 05:16:00 Vasomotor rhinitis 0924909 Active 2015 From Automated Load;Prov ider: Shoaib Chauhan;Sta tus: Active Not Available [facility] 6 05:16:00 Hypertrop hy of nasal turbinate s 37099990 Active 2015 From Automated Load;Prov ider: Shoaib Chauhan;Sta tus: Active Not Available [facility] 6 05:16:00 Pain in right knee Active 2014 From Automated Load;Prov ider: Low Peter;St atus: Active Not Available [facility] 6 05:16:00 Dyspnea 528324960 Active 2014 From Automated Load;Prov ider: Valarie Meyers;Sta tus: Active Not Available [facility] 6 05:16:00 Acquired trigger finger 7813586 Active 2014 From Automated Load;Prov ider: Graham Dykes;Frankie tatus: Active Not Available [facility] 6 05:16:00 Idiopathi c osteoarth ritis 674203508 Active 2014 From Automated Load;Prov ider: Low Peter;St atus: Active Not Available [facility] 6 05:16:00 Insomnia 571032424 Active 2015 From Automated Load;Prov ider: Valarie Meyers;Sta tus: Active Not Available [facility] 6 05:16:00 Eczema 15129846 Active 2015 From Automated Load;Prov ider: Mery Isaacs;S tatus: Active Not Available [facility] 6 05:16:01 Senile hyperkera tosis 840748631 Active 2015 From Automated Load;Prov ider: Mery Isaacs;S tatus: Active Not Available [facility] 6 05:16:01 Lentigo Active 2015 From Automated Load;Prov ider: Mery Isaacs;S tatus: Active Not Available [facility] 6 05:16:01 Lateral epicondyl itis 578739576 Active 2014 From Automated Load;Prov ider: Graham Dykes;S tatus: Active Not Available [facility] 6 05:16:01 Obstructi ve sleep apnea syndrome 48281343 Active 2014 From Automated Load;Prov ider: Donnie, Valarie;Sta tus: Active Not Available [facility] 6 05:16:01 Problem Notes None recorded. Procedures Surgical History Date Name Laterality Status Provider Name and Address Organization Details Recorded Time 025 Destruction [place] Lesion; trunk, arm, leg completed Steph Washington [facility] 01/30/2025 15:00:42 025 Biopsy Skin Lesion; Tangential completed LOUISE ROSS PA-C [address] [place] [address], [address], [facility] 02/03/2025 19:43:10 025 Endoscopy Nasal; Diagnostic completed LAUREN GRIFFIN MD [address] [place] [address], [address], [facility] 12/28/2024 14:10:00 025 Endoscopy Nasal; Biospy, Polypectomy or Debridement completed Laila Bhatia [facility] 11/27/2024 15:18:30 024 Stress Test - Nuclear completed YURY MORELAND MD [address] [place] [address], [address], [facility] 08/09/2024 16:32:59 024 Biopsy Skin Lesion; Tangential completed Fernanda Matute [facility] 08/01/2024 15:29:33 024 EKG completed VENKATA MORRIS, HAND BENDER [address] [place], [address], [facility] 07/06/2024 11:30:16 024 Synvisc One Injection completed Diana Maldonado [facility] 06/05/2024 11:20:07 024 Destruction Premalignant Lesion(s) completed Andreina Muse [facility] 01/30/2024 15:37:40 024 Synvisc One Injection completed Diana Maldonado [facility] 09/20/2023 15:05:25 024 Laryngoscopy Flex completed Vincent De La Rosa [facility] 09/08/2023 14:40:07 023 Destruction Premalignant Lesion(s) completed Andreina Muse [facility] 07/11/2023 14:11:59 023 Diffusion Capacity completed VALARIE MEYERS PA-C [address] [place], [address], [facility] 04/26/2023 16:53:09 023 Lung Volumes, Plethysmography completed VALARIE MEYERS PA-C [address] [place], [address], [facility] 04/26/2023 16:53:12 023 Spirometry completed VALARIE MEYERS PA-C [address] [place], [address], [facility] 04/26/2023 16:53:16 023 Tympanogram completed TAMIR PHAM AUD [address] [place], [address], [facility] 02/11/2023 09:56:33 023 Audiogram completed TAMIR PHAM AUD [address] [place], [address], [facility] 02/11/2023 09:56:25 023 Terra-Hallpike completed YURY OROZCO, HAND BENDER [address] [place], [address], [facility] 02/11/2023 11:04:26 023 Cerumen removal - Instruments, Unilateral completed YURY OROZCO, HAND BENDER [address] [place], [address], [facility] 02/11/2023 11:04:16 023 Destruction Premalignant Lesion(s) completed Andreina Muse [facility] 01/06/2023 10:05:27 023 EKG completed VENKATA MORRIS, HAND BENDER [address] [place], [address], [facility] 12/22/2022 12:14:26 023 PT Manual Therapy completed BALA RAHMAN, PT [address] [place], [address], [facility] 11/16/2022 13:59:41 023 PT Therapeutic Exercise completed BALA RAHMAN, PT [address] [place], [address], [facility] 11/16/2022 13:57:57 023 PT Ultrasound completed BALA RAHMAN, PT [address] [place], [address], [facility] 11/16/2022 13:59:49 023 PT Manual Therapy completed BALA RAHMAN, PT [address] [place], [address], [facility] 11/08/2022 19:18:33 023 PT Therapeutic Exercise completed BALA RAHMAN, PT [address] [place], [address], [facility] 11/08/2022 19:15:09 023 PT Ultrasound completed ABLA RAHMAN, PT [address] [place], [address], [facility] 11/08/2022 19:18:24 023 PT Evaluation - Low Complexity completed BALA RAHMAN, PT [address] [place], [address], [facility] 10/20/2022 14:53:00 023 PT Therapeutic Exercise completed BALA RAHMAN, PT [address] [place], [address], [facility] 10/20/2022 14:53:28 023 Endoscopy Nasal; Diagnostic completed Sherie Hudson [facility] 09/02/2022 11:51:54 022 Destruction BN Lesions completed [facility] 07/05/2022 11:04:13 022 Destruction [place] Lesion; trunk, arm, leg completed Aleshia [facility] 03/31/2022 16:29:14 017 Review of Med Recs/Compl forms completed [facility] 02/03/2017 12:14:00 017 Endoscopy Nasal; Diagnostic completed [facility] 01/06/2017 09:51:33 017 Endoscopy Nasal; Biospy, Polypectomy or Debridement completed [facility] 12/01/2016 13:51:[address] [facility] 11/10/2016 11:32:31 017 Review of Med Recs/Compl forms completed [facility] 11/10/2016 11:27:30 017 Endoscopy Nasal; Biospy, Polypectomy or Debridement completed Maria Ines Stiles [facility] 11/04/2016 13:17:46 017 PT Therapeutic Exercise completed BALA RAHMAN, PT [address] [place], [address], [facility] 10/05/2016 14:10:15 017 PT Therapeutic Exercise completed BALA RAHMAN, PT [address] [place], [address], [facility] 09/29/2016 12:33:26 017 PT Evaluation - Low Complexity completed BALA RAHMAN, PT [address] [place], [address], [facility] 09/29/2016 12:33:09 017 Endoscopy Nasal; Biospy, Polypectomy or Debridement completed Sherie Hudson [facility] 09/23/2016 13:58:53 Imaging Results None recorded. Procedure Notes None recorded. Medical Equipment None Reported. Allergies Allergen ID Allergen Name Allergen Category Reaction Reaction Severity Criticality Documentation Date Start Date Code Code System Note Provider Name and Address Organization Details Recorded Time 527343 prednison e medicatio n Not available Not available Not available 07/22/20162009 8640 RxNorm Mary Cevallos [facility] 8 10:24:29 283368 clindamyc in hydrochlo ride medicatio n nausea Not available Not available 07/22/20162012 90249 RxNorm Candace Brown mere [facility] 7 09:10:31 544497 vancomyci n hydrochlo ride medicatio n Not available Not available Not available 07/22/20162012 75652 RxNorm Candace Brown mere [facility] 7 09:11:12 295411 acetamino phen / hydrocodo ne medicatio n nausea severe Not available 07/22/20162010 91195 2 RxNorm React ion: NAUSE A;Sev erity : Sever e; Comme nt: Creat ed By: Jennifer fernandez Date: 2010 4:54: 20 PM; Not Available [facility] 6 10:18:05 799229 Substance with prostagla ndin-endo peroxide synthase isoform 2 inhibitor mechanism of action (substanc e) Not available other Not available Not available 07/22/20162009 67536 0005 SNOMED Comme nt: CAUSE ULCER S Candace Teetrevor severino [facility] 7 09:10:42 158582 Substance with sulfonami de structure and antibacte rial mechanism of action (substanc e) medicatio n Not available Not available Not available 07/22/20162006 98842 8003 SNOMED Candace severino [facility] 7 09:11:08 971347 Reglan medicatio n Not available Not available Not available 07/22/20162009 9230 RxNorm Mary Cevallos [facility] 4 10:03:21 849370 Cymbalta medicatio n Not available Not available Not available 07/22/20162010 15031 4 RxNorm Candace Brown mere [facility] 7 09:10:46 290996 gabapenti n medicatio n rash Not available Not available 07/22/20162012 15314 RxNorm Candace Brown mere [facility] 7 09:10:51 465425 Medrol medicatio n rash Not available Not available 07/22/20162014 2 RxNorm Mary Cevallos [facility] 8 10:24:22 776293 codeine medicatio n Not available Not available Not available 07/22/20162006 2670 RxNorm Candace Brown mere [facility] 7 09:10:34 873764 Biaxin medicatio n other Not available Not available 07/22/20162006 9 RxNorm Comme nt: PT ON RELPA X SHOUL D NOT TAKE BIAXI N WITH THIS DRUG Candace Brown mere [facility] 7 09:10:23 784717 midazolam hydrochlo ride medicatio n Not available Not available Not available 07/22/20162013 8 RxNorm Candace Teeso mere [facility] 7 09:11:14 047761 acetamino phen / hydrocodo ne medicatio n nausea Not available Not available 07/23/2016201218 2 RxNorm Candace Brown n [facility] 7 09:10:55 777146 Cipro medicatio n abdominal pain Not available Not available 02/13/201824894 3 RxNorm Mary Cevallos [facility] 8 10:25:49 134868 Topamax medicatio n Not available Not available Not available 12/14/202100479 3 RxNorm Margarita Cole [facility] 2 11:53:05 491860 Non-stero idal anti-infl ammatory agent (product) medicatio n Not available Not available Not available 12/14/2021 52555 005 SNOMED Margaritayuriy Cole [facility] 2 11:53:13 334782 amoxicill in medicatio n Not available Not available Not available 09/12/2024 723 RxNorm Notif ied of aller gy 09/12 Ginny Edgar [facility] 5 15:26:18 390352 lidocaine medicatio n rash Not available Not available 11/27/2024 6387 RxNorm decli gideon topic al lidoc carleen due to rash/ burni ng Jenyvalerie Hernandez [facility] 5 15:04:06 Medications Name Sig Start Date [...] ne propionat e 50 mcg/actua tion nasal spray,acin pension 1 spray each nostril BID 11/07 [...] Available Not Available Not Available Fluarix Quad 2782-0816 (PF) 60 mcg (15 mcg x 4)/0.5 [...] Updated DateTime 5 175.26 cm 25.3 kg/m2 34524.3 g 95 % 95 % 78 /min 120/60 mm[Hg] Libertad Overstree t [facility] 5 13:24:53 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 Question Answer Notes LastModified by Organizat ion Details LastModified Time Tobacco Smoking Status Never Smoker Patricia sanches [facility] 08/24/2016 13:57:44 What Is Your Level Of Caffeine Consumption? Occasional Information not available 10/31/2017 How Much Tobacco Do You Chew? None [email or web address] Information not available 11/05/2020 Which Of Your [...] How Many Children Do You Have? 4 [email or web address] Information not available 11/19/2021 What Is Your Relationship Status? [email or web address] Information not available 11/19/2021 How Much Tobacco Do You Smoke? No Information not available 11/05/2020 Has Tobacco Cessation Counseling Been Provided? No [email or web address] Information not available 12/22/2022 How Many Years Have You Smoked Tobacco? 0 [email or web address] Information not available 11/05/2020 Have You Recently Traveled Abroad? No [email or web address] Information not available 11/19/2021 Sex: Female Functional Status Question Answer Note LastModified by Organizat ion Details LastModified Time Do you use any illicit or recreational drugs? No Information not available 10/31/2017 Do you or have you ever used any other forms of tobacco or nicotine? No Information not available 06/30/2022 What is your level of alcohol consumption? Occasional one glass of wine daily [email or web address] Information not available 11/05/2020 Do you or have you ever used smokeless tobacco? Never used smokeless tobacco [email or web address] Information not available 11/05/2020 Are you currently [...] Hernia Y Emphysema N Esophagus/swallowing troubles N Glaucoma N Hypothyroidism N Lung Disease N Depression N Pneumonia [...] Stomach trouble N Ulcers Y Heart Attack (PA) N Diabetes Y Rheumatic Fever N Bleeding [...] 30 mcg/0.3 mL dose 09/25/2020 completed Marino [facility] 12/11/2024 15:52:44 COVID-19, mRNA, LNP-S, PF, 30 mcg/0.3 mL dose 10/21/2020 completed Marino Hernandez [facility] 12/11/2024 15:52:44 COVID-19, mRNA, LNP-S, PF, 30 mcg/0.3 mL dose 06/11/2021 [facility] 12/11/2024 15:52:44 Past Encounters Encounter ID Performer Location Encounter Start Date Encounter Closed Date Diagnosis/Indication Diagnosis SNOMED-CT Code Diagnosis ICD10 Code Diagnosis Note [id number] MD SULEIMAN HARTLEY [facility] [address] [place] [address] 12/28/2024 13:38:24 12/28/2024 14:08:30 Chronic recurrent sinusitis 764585219 J32.9 -2007 - Septoplast y, Left ESS [...] obtained today in office Laryngopha ryngeal reflux 647848638 K21.9 -2008 - s/p [employer] tion [...] may return to singing. Tam's esophagus 3029 38771 K22.70 02/09/24- managed with Dr. Abraham Neck pain 20169776 M54.2 -09/08/22 -Thyroid ultrasound at [facility] no thyroid nodules or masses identified -04/2023 - Onset of intermitte nt right lower neck pain- - Neck ultrasound years to [facility] appearance in the designated painful area; several [...] LPR02/09/24 - no complaints of Thyroid nodule 816902562 E04.1 -09/02/22 - Lower right lobe sl tender- 09/08/22 Thyroid US [facility]= no thyroid nodule or mass identified . Small right neck lymph nodes, nonspecifi c and likely reactive noted. Obstructiv e sleep apnea syndrome 05709574 G47.33 -using CPAP nightly Vasomotor rhinitis 82392 03 J30.0 Sensorineu ral hearing loss of bilateral ears 862531798 H90.3 Absence of bilateral tonsils 237312573 Z90.09 [id number] EVNKATA MORRIS, HAND BENDER CARDIOLOG Y [address] [place] [address] 01/25/2025 12:36:16 01/25/2025 13:52:07 Coronary arteriosclerosis 68019995 I25.10 CCTA done at [facility] gat ston score = 161Left Main: [...] mo for ongoing management Supraventr icular tachycardia 1217565 I47.10 Stable. No evidence of recurrence most recent heart monitor. continue with BB. Obstructiv e sleep apnea syndrome 01000491 G47.33 Not currently treating Hypertensive disorder 38 484615 I10 Stable.Low sodium diet. Type 2 dereje betes mellitus 56900832 E11.9 PCP monitoring . Hyperlipidemia 73175003 E78.5 Notes she cannot take statin, notes [...] Name 01/25/2025 1 [place] Candace Bryant [id number] Candace Bryant 01/25/2025 2 [employer] (MEDICARE SUPPLEMENT) Candace Bryant [id number] Candace Bryant Notes Date Note Type Note [...] normal LV function. Had repeat carotid at [facility] which showed < 50% bilat ICA stenosis. Brain MRI 12/2022 was normal. 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 CCTA done at [facility] gatston score = 161Left Main: CAD-RADS 0 [...] she had complaint of CP.She underwent Lexiscan 08/09/20244464Kocrjoghpr7. Normal myocardial perfusion at rest and stress.2. [...] Did not require surgical intervention. VENKATA MORRIS, HAND BENDER [address] [place], [address], [facility] 01/25/2025 15:30:22 OBGyn Episode No OBEpisode recorded.
--- OUTSIDE RECORDS SUMMARY | 2025-03-11 14:16 | XMS_ITS | Data Portability ---
Author Organization [facility] Address [address] [place] [address] Care Team Providers Care Arterial Embalmer Name Role Phone SHOAIB CHAUHAN Elevator Attendant [phone] JERSEY NAVAS White Sugar Pan Tank Operator TAYLER SWEENEY OTHER VIKTORIA CORDOVA OTHER YURY CESAR OTHER GRAHAM JEAN Primary Care Provider SERA NO Breast Surgeon GRAHAM CORONA Urologist VALARIE MEYERS Pediatric Speech Language Pathologist YURY ABRAHAM [place] VENKATA MORRIS Business Office Assistant LU WRIGHT General Surgeon Assessment Encounter Date Assessment Date Assessment LastModified by Organization Details LastModified Time 01/30/2025 01/30/2025 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 *Daughter passed in October 2019 from metastatic SCC pelvis* Daughter lives in [facility], Son in law is a ground support equipment fitter, has 3 grandchildren Not available 02/03/2025 19:45:44 Plan of Treatment Reminders Order Date Submit Date Provider Last Modified By Organization Details Last Modified Time Details Appointments RECHECK 2024 10:30A Latanya GRIFFIN MD Not available Not available Not available ESTABLISH ED PT VISIT 2024 02:45P Latanya ROSS PA-C Not available Not available Not available RECHECK 2025 11:45A M VENKATA MORRIS JACK SPOOLER TENDER Not available Not available Not available Lab surgical pathology study 2024 025 [facility], [address] [place], [address], 02/01/2025 16:09:08 culture, bacterial 2024 025 [facility], [address] [place], [address], 11/28/2024 09:49:01 Referral physical therapist referral 2024 025 [email or web address] [facility], [address], [place], [address], 12/28/2024 15:45:18 pain managemen t referral 2024 025 [email or web address] Flor Alcala MD, [address] [place], [address], 12/12/2024 08:51:20 Procedures None recorded. Surgeries None recorded. Imaging None recorded. Medication Orders clobetaso l 0.05 % topical cream 2024 025 [facility], [address], [address], [place], [address], 01/30/2025 16:58:32 budesonid e 0.5 mg/2 mL suspensio n for nebulizat ion 2024 025 [facility] [address], [place], [address], 01/25/2025 13:46:39 Compound Gentamici n 80 mg - Mupirocin 20 mg - Budesonid e 1 mg capsules #60 2024 025 [email or web address], [address] [place], [address], 01/25/2025 13:25:55 Patient TargetsNo targets recorded. Patient Instructions Encounter Date Encounter Id Patient Instructions Last Modified By Organization Details Last Modified Time 11/27/2024 [id number] 1. Nasal Endosco py w/debridement performed in [...] will start her antibiotic/steroid/ saline rinse from [facility]; was using Felix's solution prior to this; can stop azelastine; follow up in four weeks to check her progress; may consider atrovent for her chronic rhinitis issues if infection is cleared up rvanmetre Not available 11/27/2024 15:22:25 12/28/2024 [id number] 1. Nasal Endosco py performed in office [...] progress rvanmetre Not available 12/28/2024 14:11:54 01/25/2025 [id number] supraventricular tachycardia: care instructions Not available 01/25/2025 15:29:58 high blood pressure: care instructions Not available 01/25/2025 15:29:58 high cholesterol : care instructions Not available 01/25/2025 15:29:58 coronary artery disease: care instructions Not available 01/25/2025 15:29:58 01/30/2025 [id number] Education/alt/ri sks /benefits/SE of Dx & Tx discussed. Daily UV protection with broad-spectrum SPF 30+ on exposed areas recommended. Pt encouraged to RTC with any new/changing lesions. [email or web address] Not available 01/30/2025 08:26:58 Reason for Referral [...] sm: Staphy lococc us aureus Not Available [facility] [address], [place], [address], 11/29/2024 13:17:26 11/28/1911/29/2024 CULTU RE, ROUTI NE culture, routine abnormal ISOLA TE #1 Moder ate Proba ble Staph yloco ccus sp.; ID and sensi tivit y in progr ess. See [place] te Resul t(s) Below Staph yloco ccus aureu s Not Available [facility] [address] [place] [address], [address], 11/29/2024 13:17:26 11/28/19 25 11/29/2024 CULTU RE, ROUTI NE amox/K clav'ate(C) <=4/2 ug/mL susceptib le Not Available [facility] [address] [place] [address], [address], 11/29/2024 13:17:26 11/28/19 25 11/29/2024 CULTU RE, ROUTI NE amp/sulbacta m(C) <=8/4 ug/mL susceptib le Not Available [facility] [address] [place] [address], [address], 11/29/2024 13:17:26 11/28/19 25 11/29/2024 CULTU RE, ROUTI NE cefazolin <=8 ug/mL susceptib le Not Available [facility] [address] [place] [address], [address], 11/29/2024 13:17:26 11/28/19 25 11/29/2024 CULTU RE, ROUTI NE cefoxitin screen <=4 ug/mL negative Not Available [facility] [address] [place] [address], [address], 11/29/2024 13:17:26 11/28/19 25 11/29/2024 CULTU RE, ROUTI NE ciprofloxaci n <=1 ug/mL susceptib le Not Available [facility] [address] [place] [address], [address], 11/29/2024 13:17:26 11/28/19 25 11/29/2024 CULTU RE, ROUTI NE clindamycin <=0.25 ug/mL susceptib le Not Available [facility] [address] [place] [address], [address], 11/29/2024 13:17:26 11/28/19 25 11/29/2024 CULTU RE, ROUTI NE erythromycin <=0.5 ug/mL susceptib le Not Available [facility] [address] [place] [address], [address], 11/29/2024 13:17:26 11/28/19 25 11/29/2024 CULTU RE, ROUTI NE gentamicin <=4 ug/mL susceptib le Not Available [facility] [address] [place] [address], [address], 11/29/2024 13:17:26 11/28/19 25 11/29/2024 CULTU RE, ROUTI NE levofloxacin <=1 ug/mL susceptib le Not Available [facility] [address] [place] [address], [address], 11/29/2024 13:17:26 11/28/19 25 11/29/2024 CULTU RE, ROUTI NE oxacillin <=0.25 ug/mL susceptib le Not Available [facility] [address] [place] [address], [address], 11/29/2024 13:17:26 11/28/19 25 11/29/2024 CULTU RE, ROUTI NE rifampin <=1 ug/mL susceptib le Not Available [facility] [address] [place] [address], [address], 11/29/2024 13:17:26 11/28/19 25 11/29/2024 CULTU RE, ROUTI NE tetracycline <=4 ug/mL susceptib le Not Available [facility] [address] [place] [address], [address], 11/29/2024 13:17:26 11/28/19 25 11/29/2024 CULTU RE, ROUTI NE trimeth/sulf a <=0.5/ 9.5 ug/mL susceptib le Not Available [facility] [address] [place], [address], 11/29/2024 13:17:26 11/28/19 25 11/29/2024 CULTU RE, ROUTI NE vancomycin 1 ug/mL susceptib le Not Available [facility] [address] [place], [address], 11/29/2024 13:17:26 01/31/20 25 01/30/2025 SURGI URIAH [...] tage. B) Left dista l preti bial macias: Benig n kerat osis. SOURC E OF [...] 16:08 Page 1 of 1 Not Available [facility] [facility], [place], [address], 02/01/2025 16:09:07 12/12/19 25 12/11/2024 XR, hip, unila teral , 2 or 3 view [facility] [address] [place] [address] [phone] Patien t Name: CANDACE Mclain Patien t : [birth year] Patien t 0 [...] Cooper barnett MD on 025 4:27 PM [email or web address] [facility] [place] [address], [place], [address], 12/12/2024 08:13:08 Result Notes Documentation Provider Name and Address Organization Details Recorded Time Xr, Hip, Unilateral, 2 Or 3 View : [facility] [place] [address] [place] [address] Patient Name: CANDACE BRYANT Patient : 1950 [...] By: Lazarus Dalal MD LANG PA-C [address] [place], [address], [facility] 12/12/2024 08:13:08 Problems Name Problem SNOMED Code Status Onset Date Resolution Date Notes Provider Name and Address Organization Details Recorded Time Low back pain 108031674 Active 2016 BALA RAHMAN, PT [address] [place], [address] , [facility] 7 12:34:12 Abnormal posture 88936179 Active 2016 BALA RAHMAN, PT [address] [place], [address] , [facility] 7 12:34:14 Muscle weakness 83651552 Active 2016 BALA RAHMAN, PT [address] [place], [address] , [facility] 7 12:34:15 Lumbar spine stiff 553576297 Active 2016 BALA RAHMAN, PT [address] [place], [address] , [facility] 7 12:34:16 Nasal polyp Active 2015 From Automated Load;Prov ider: Shoaib Chauhan;Sta tus: Active Not Available [facility] 7 06:09:08 Contusion of rib 062518835 Active 2017 BALA RAHMAN, PT [address] [place], [address] , [facility] 8 18:42:00 Stiff back 190675366 Active 2017 BALA RAHMAN, PT [address] [place], [address] , [facility] 8 18:42:01 Rib pain 577957563 Active 2017 BALA RAHMAN, PT [address] [place], [address] , [facility] 8 18:42:03 Infection of sebaceous cyst 309554184 Active 2017 left thigh Lilli Graves [facility] 8 14:27:30 Osteoarth ritis of joint of hand 94971437 Active 2019 BALA RAHMAN, PT [address] [place], [address] , [facility] 0 19:51:53 Pain in right hand 20372208949 9109 Active 2019 BALA RAHMAN, PT [address] [place], [address] , [facility] 0 19:51:55 Stiffness of joint of right hand 69792505672 9106 Active 2019 BALA RAHMAN, PT [address] [place], [address] , [facility] 0 19:51:57 Contractu re of joint of finger of left hand due to scar 45878965485 984383 Active 2019 BALA RAHMAN, PT [address] [place], [address] , [facility] 0 17:06:15 Thumb joint stiff 629340051 Active 2019 BALA RAHMAN, PT [address] [place], [address] , [facility] 0 17:06:30 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 43523828 Active 2019 BALA RAHMAN, PT [address] [facility] [place], [address] , [facility] 0 17:07:01 Pain of right shoulder joint 22647512133 082574 Active 2019 BALA RAHMAN, PT [address] [place], [address] , [facility] 0 18:53:50 Essential hypertens ion 71346701 Active 2021 KAMILAH LOPEZ, JACK SPOOLER TENDER [address] [place], [address] , [facility] 2 16:55:28 Type 2 diabetes mellitus 96438122 Active 2021 KAMILAH LOPEZ, JACK SPOOLER TENDER [address] [facility] [place], [address] , [facility] 2 16:55:41 Palpitati ons 77210997 Active 2021 KAMILAH LOPEZ, JACK SPOOLER TENDER [address] [facility] [place], [address] , [facility] 2 16:55:59 Supravent ricular tachycard ia 1545010 Active 2021 KAMILAH LOPEZ, JACK SPOOLER TENDER [address] [facility] [place], [address] , [facility] 2 16:56:26 Tendiniti s of right forearm 21615101457 887865 Active 2022 BALA RAHMAN, PT [address] [place], [address] , [facility] 3 15:01:54 Atrophy of muscle of right shoulder 86380948688 9104 Active 2022 BALA RAHMAN, PT [address] [place], [address] , [facility] 3 15:01:58 Lateral epicondyl itis 464536630 Active 2022 BALA RAHMAN, PT [address] [place], [address] , [facility] 3 19:19:45 Spasm 97898277 Active 2022 BALA RAHMAN, PT [address] [place], [address] , [facility] 3 19:19:50 Melanocyt ic nevus of trunk 162479457 Active 2015 From Automated Load;Prov ider: Devon Isaacs;Frankie tatus: Active Not Available [facility] 6 05:16:00 Acute sinusitis 47699338 Active 2015 From Automated Load;Prov ider: Shoaib Chauhan;Sta tus: Active Not Available [facility] 6 05:16:00 Sinusitis 81022778 Active 2015 From Automated Load;Prov ider: Shoaib Chauhan;Sta tus: Active Not Available [facility] 6 05:16:00 Vasomotor rhinitis 4597810 Active 2015 From Automated Load;Prov ider: Shoaib Chauhan;Sta tus: Active Not Available [facility] 6 05:16:00 Hypertrop hy of nasal turbinate s 11998261 Active 2015 From Automated Load;Prov ider: Shoaib Chauhan;Sta tus: Active Not Available [facility] 6 05:16:00 Pain in right knee Active 2014 From Automated Load;Prov ider: Nevaeh Pa;St atus: Active Not Available [facility] 6 05:16:00 Dyspnea 824731698 Active 2014 From Automated Load;Prov ider: Valarie Meyers;Sta tus: Active Not Available [facility] 6 05:16:00 Acquired trigger finger 6641690 Active 2014 From Automated Load;Prov ider: Graham yDkes;S tatus: Active Not Available [facility] 6 05:16:00 Idiopathi c osteoarth ritis 269464238 Active 2014 From Automated Load;Prov ider: Nevaeh Pa;St atus: Active Not Available [facility] 6 05:16:00 Insomnia 545677565 Active 2015 From Automated Load;Prov ider: Valarie Meyers;Sta tus: Active Not Available [facility] 6 05:16:00 Eczema 91835346 Active 2015 From Automated Load;Prov ider: Devon Isaacs;S tatus: Active Not Available [facility] 6 05:16:01 Senile hyperkera tosis 253003966 Active 2015 From Automated Load;Prov ider: Devon Isaacs;S tatus: Active Not Available [facility] 6 05:16:01 Lentigo Active 2015 From Automated Load;Prov ider: Devon Isaacs;S tatus: Active Not Available [facility] 6 05:16:01 Lateral epicondyl itis 247903276 Active 2014 From Automated Load;Prov ider: Graham Dykes;S tatus: Active Not Available [facility] 6 05:16:01 Obstructi ve sleep apnea syndrome 35187952 Active 2014 From Automated Load;Prov ider: Valarie Meyers;Sta tus: Active Not Available [facility] 6 05:16:01 Problem Notes None recorded. Procedures Surgical History Date Name Laterality Status Provider Name and Address Organization Details Recorded Time 025 Destruction [place] Lesion; trunk, arm, leg completed Steph Washington [facility] 01/30/2025 15:00:42 025 Biopsy Skin Lesion; Tangential completed LOUISE ROSS PA-C [address] [place], [address], [facility] 02/03/2025 19:43:10 025 Endoscopy Nasal; Diagnostic completed LAUREN GRIFFIN MD [address] [place], [address], [facility] 12/28/2024 14:10:00 025 Endoscopy Nasal; Biospy, Polypectomy or Debridement completed Laila Bhatia [facility] 11/27/2024 15:18:30 024 Stress Test - Nuclear completed YURY MORELAND MD [address] [place], [address], [facility] 08/09/2024 16:32:59 024 Biopsy Skin Lesion; Tangential completed Fernanda Matute [facility] 08/01/2024 15:29:33 024 EKG completed VENKATA MORRIS APRN [address] [place], [address], [facility] 07/06/2024 11:30:16 024 Synvisc One Injection completed Soni Maldonado [facility] 06/05/2024 11:20:07 024 Destruction Premalignant Lesion(s) completed Andreina Muse [facility] 01/30/2024 15:37:40 024 Synvisc One Injection completed Soni Maldonado [facility] 09/20/2023 15:05:25 024 Laryngoscopy Flex completed Vincent De La Rosa [facility] 09/08/2023 14:40:07 023 Destruction Premalignant Lesion(s) completed Andreina Muse [facility] 07/11/2023 14:11:59 023 Diffusion Capacity completed VALARIE MEYERS PA-C [address] [place], [address], [facility] 04/26/2023 16:53:09 023 Lung Volumes, Plethysmography completed VALARIE MEYERS PA-C [address] [place], [address], [facility] 04/26/2023 16:53:12 023 Spirometry completed VALARIE MEYERS PA-C [address] [place], [address], [facility] 04/26/2023 16:53:16 023 Tympanogram completed TAMIR PHAM, AUD [address] [place], [address], [facility] 02/11/2023 09:56:33 023 Audiogram completed TAMIR PHAM, AUD [address] [place], [address], [facility] 02/11/2023 09:56:25 023 Salisbury-Hallpike completed YURY OROZCO, JACK SPOOLER TENDER [address] [place], [address], [facility] 02/11/2023 11:04:26 023 Cerumen removal - Instruments, Unilateral completed YURY OROZCO, JACK SPOOLER TENDER [address] [place], [address], [facility] 02/11/2023 11:04:16 023 Destruction Premalignant Lesion(s) completed Andreina Muse [facility] 01/06/2023 10:05:27 023 EKG completed VENKATA MORRIS, JACK SPOOLER TENDER [address] [place], [address], [facility] 12/22/2022 12:14:26 023 PT Manual Therapy completed BALA RAHMAN, PT [address] [place], [address], [facility] 11/16/2022 13:59:41 023 PT Therapeutic Exercise completed BALA RAHMAN, PT [address] [facility] [place] [place], [address], [facility] 11/16/2022 13:57:57 023 PT Ultrasound completed BALA RAHMAN, PT [address] [place], [address], [facility] 11/16/2022 13:59:49 023 PT Manual Therapy completed BALA RAHMAN, PT [address] [place], [address], [facility] 11/08/2022 19:18:33 023 PT Therapeutic Exercise completed BALA RAHMAN, PT [address] [place], [address], [facility] 11/08/2022 19:15:09 023 PT Ultrasound completed BALA RAHMAN, PT [address] [place], [address], [facility] 11/08/2022 19:18:24 023 PT Evaluation - Low Complexity completed BALA RAHMAN, PT [address] [place], [address], [facility] 10/20/2022 14:53:00 023 PT Therapeutic Exercise completed BALA RAHMAN, PT [address] [place], [address], [facility] 10/20/2022 14:53:28 023 Endoscopy Nasal; Diagnostic completed Sherie Hudson [facility] 09/02/2022 11:51:54 022 Destruction BN Lesions completed Aleshia Saleh [facility] 07/05/2022 11:04:13 022 Destruction [place] Lesion; trunk, arm, leg completed Aleshia Saleh [facility] 03/31/2022 16:29:14 017 Review of Med Recs/Compl forms completed Angella Aparicio [facility] 02/03/2017 12:14:00 017 [facility]oscopy Nasal; [facility] 09:51:33 017 Endoscopy Nasal; Biospy, Polypectomy or Debridement completed [facility] 12/01/2016 13:51:14 017 Nasopharyngoscopy completed [facility] 11/10/2016 11:32:31 017 Review of Med Recs/Compl forms completed [facility] 11/10/2016 11:27:30 017 Endoscopy Nasal; Biospy, Polypectomy or Debridement completed Maria Ines Wardd [facility] 11/04/2016 13:17:46 017 PT Therapeutic Exercise completed BALA RAHMAN, PT [address] [place], [address], [facility] 10/05/2016 14:10:15 017 PT Therapeutic Exercise completed BALA RAHMAN, PT [address] [place], [address], [facility] 09/29/2016 12:33:26 017 PT Evaluation - Low Complexity completed BALA RAHMAN, PT [address] [place], [address], [facility] 09/29/2016 12:33:09 017 Endoscopy Nasal; Biospy, Polypectomy or Debridement completed Sherie Hudson [facility] 09/23/2016 13:58:53 Imaging Results None recorded. Procedure Notes None recorded. Medical Equipment None Reported. Allergies Allergen ID Allergen Name Allergen Category Reaction Reaction Severity Criticality Documentation Date Start Date Code Code System Note Provider Name and Address Organization Details Recorded Time 503625 prednison e medicatio n Not available Not available Not available 07/22/20162009 8640 [facility] 8 10:24:29 846188 clindamyc in hydrochlo ride medicatio n nausea Not available Not available 07/22/20162012 05872 RxNorm Candace sanches [facility] 7 09:10:31 050384 vancomyci n hydrochlo ride medicatio n Not available Not available Not available 07/22/20162012 30236 RxNorm Candace severino [facility] 7 09:11:12 228281 acetamino phen / hydrocodo ne medicatio n nausea severe Not available 07/22/20162010 22462 2 RxNorm React ion: NAUSE A;Sev erity : Sever e; Comme nt: Creat ed By: Jennifer fernandez Date: 2010 4:54: 20 PM; Not Available [facility] 6 10:18:05 842788 Substance with prostagla ndin-endo peroxide synthase isoform 2 inhibitor mechanism of action (substanc e) Not available other Not available Not available 07/22/20162009 77068 0005 SNOMED Comme nt: CAUSE ULCER S Candace Brown mere [facility] 7 09:10:42 506400 Substance with sulfonami de structure and antibacte rial mechanism of action (substanc e) medicatio n Not available Not available Not available 07/22/20162006 07927 8003 SNOMED Candace severino [facility] 7 09:11:08 228451 Reglan medicatio n Not available Not available Not available 07/22/20162009 9230 RxNorm Mary Cevallos [facility] 4 10:03:21 329783 Cymbalta medicatio n Not available Not available Not available 07/22/20162010 26086 4 RxNorm Candace severino [facility] 7 09:10:46 123734 gabapenti n medicatio n rash Not available Not available 07/22/20162012 50857 RxNorm Candace Brown mere [facility] 7 09:10:51 710084 Medrol medicatio n rash Not available Not available 07/22/20162014 2 RxNorm Mary Cevallos [facility] 8 10:24:22 594205 codeine medicatio n Not available Not available Not available 07/22/20162006 2670 RxNorm Candace severino [facility] 7 09:10:34 570790 Biaxin medicatio n other Not available Not available 07/22/2016200672 9 RxNorm Comme nt: PT ON RELPA X SHOUL D NOT TAKE BIAXI N WITH THIS DRUG Candace Brown n [facility] 7 09:10:23 062554 midazolam hydrochlo ride medicatio n Not available Not available Not available 07/22/2016201312 8 RxNorm Candace Brown n [facility] 7 09:11:14 603454 acetamino phen / hydrocodo ne medicatio n nausea Not available Not available 07/23/2016201218 2 RxNorm Candace Brown n [facility] 7 09:10:55 208607 Cipro medicatio n abdominal pain Not available Not available 02/13/201843473 3 RxNorm Mary Ban [facility] 8 10:25:49 142026 Topamax medicatio n Not available Not available Not available 12/14/202143975 3 RxNorm Margarita Cole [facility] 2 11:53:05 021466 Non-stero idal anti-infl ammatory agent (product) medicatio n Not available Not available Not available 12/14/2021 11086 005 SNOMED Margarita Cole [facility] 2 11:53:13 980226 amoxicill in medicatio n Not available Not available Not available 09/12/2024 723 RxNorm Notif ied of aller gy 09/12 Ginny Hernández [facility] 5 15:26:18 295725 lidocaine medicatio n rash Not available Not available 11/27/2024 6387 RxNorm decli gideon topic al lidoc carleen due to rash/ burni ng Jeny David [facility] 15:04:06 Medications Name Sig Start Date Stop [...] Available Not Available Not Available Fluarix Quad 6215-4578 (PF) 60 mcg (15 mcg x 4)/0.5 [...] Available Not Available Not Available Fluzone High-Dose 5770-6344 (PF) 180 mcg/0.5 mL intramusc ular syringe [...] Updated DateTime 5 175.26 cm 24.7 kg/m2 69011.9 3 g 96.9 [degF] 80 /min 121/78 mm[Hg] Lalita Richard [facility] 5 14:55:03 Date Recorded Body height Body mass index (BMI) Body weight Provider Name and Address Organization Details Last Updated DateTime 12/11/2024 175.26 cm 24.7 kg/m2 14945.93 g Marino Hernandez [facility] 12/11/2024 15:16:39 Date Recorded Body height Body mass index (BMI) Body weight Body temperature Heart rate Systolic And Diastolic Provider Name and Address Organization Details Last Updated DateTime 175.26 cm 25.1 kg/m2 80732.1 g 97.4 [degF] 83 /min 128/71 mm[Hg] Oscar Ann [facility] 13:51:25 Date Recorded Body height Body mass index (BMI) Body weight Oxygen saturation Oxygen saturation in Arterial blood by Pulse oximetry Heart rate Systolic And Diastolic Provider Name and Address Organization Details Last Updated DateTime 175.26 cm 25.3 kg/m2 96788.3 g 95 % 95 % 78 /min 120/60 mm[Hg] Libertad Martineztree verito [facility] 13:24:53 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 Question Answer Notes LastModified by Organizat ion Details LastModified Time Tobacco Smoking Status Never Smoker Patricia Mirandaciara sanches [facility] 08/24/2016 13:57:44 What Is Your Level Of Caffeine Consumption? Occasional Information not available 10/31/2017 How Much Tobacco Do You Chew? None [email or web address] Information not available 11/05/2020 Which Of Your [...] How Many Children Do You Have? 4 [email or web address] Information not available 11/19/2021 What Is Your Relationship Status? [email or web address] Information not available 11/19/2021 How Much Tobacco Do You Smoke? No Information not available 11/05/2020 Has Tobacco Cessation Counseling Been Provided? No [email or web address] Information not available 12/22/2022 How Many Years Have You Smoked Tobacco? 0 [email or web address] Information not available 11/05/2020 Have You Recently Traveled Abroad? No [email or web address] Information not available 11/19/2021 Sex: Female Functional Status Question Answer Note LastModified by Organizat ion Details LastModified Time Do you use any illicit or recreational drugs? No Information not available 10/31/2017 Do you or have you ever used any other forms of tobacco or nicotine? No Information not available 06/30/2022 What is your level of alcohol consumption? Occasional one glass of wine daily [email or web address] Information not available 11/05/2020 Do you or have you ever used smokeless tobacco? Never used smokeless tobacco [email or web address] Information not available 11/05/2020 Are you currently employed? 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 Never used electronic cigarettes [email or web address] Information not available 11/05/2020 What is your [...] Pain N Stomach trouble N Heart Attack ([place]) N Ulcers Y Diabetes Y Rheumatic Fever [...] 30 mcg/0.3 mL dose 09/25/2020 completed Marino [facility] 12/11/2024 15:52:44 COVID-19, mRNA, LNP-S, PF, 30 mcg/0.3 mL dose 10/21/2020 completed Marino David [facility] 12/11/2024 15:52:44 COVID-19, mRNA, LNP-S, PF, 30 mcg/0.3 mL dose 06/11/2021 [facility] 12/11/2024 15:52:44 Past Encounters Encounter ID Performer Location Encounter Start Date Encounter Closed Date Diagnosis/Indication Diagnosis SNOMED-CT Code Diagnosis ICD10 Code Diagnosis Note [id number] MARC PATEL MD UROLOGY [address] [place] [address] 08/24/2016 13:16:43 08/25/2016 10:10:18 Abdominal pain 23514642 R10.9 Renal colic 0832604 N23 [id number] MD SULEIMAN LENZ ENT [address] [place] [address] 09/23/2016 13:08:02 09/23/2016 14:23:23 Hypertrophy of nasal turbinates 80101958 J34.3 Chronic sinusitis 930078 00 J32.9 - S/P Left ESS Obstructiv e sleep apnea of adult 5947176415 103 G47.33 Cyst of nasal sinus 8522 5000 J34.1 - left maxillary Acute sinusitis 17873908 J01.90 [id number] BALA RAHMAN, PT PHYSICAL THERAPY / HAND THERAPY [facility] [address] [place] [address] 09/28/2016 10:32:24 09/30/2016 07:18:12 Low back pain 440576720 M54.5 Abnormal posture 5939886 2 R29.3 Muscle weakness 13846584 M62.81 Lumbar spine stiff 41422 6009 M25.60 [id number] BALA RAHMAN, PT PHYSICAL THERAPY / HAND TH[facility]APY [facility] [address] [place] [address] 10/05/2016 13:20:47 10/05/2016 15:10:07 Low back pain 776588219 M54.5 Lumbar spine stiff 25710 6009 M25.60 Abnormal posture 0817904 2 R29.3 Muscle weakness 82547159 M62.81 [id number] MD SULEIMAN LENZ ENT [address] [place] [address] 11/04/2016 12:39:55 11/04/2016 15:05:25 Chronic sinusitis 51165871 J32.9 - S/P Left ESS Acute sinusitis 22889856 J01.90 [id number] MD SULEIMAN LENZ ENT [address] [place] [address] 11/10/2016 10:12:59 11/10/2016 14:08:27 Chronic recurrent sinusitis 446803166 J32.9 status post revision left MMA, left ethmoidect cynthia, left NA window (limited medial maxillecto my), left SMR inferior turbinateC T sinus today shows mucosal thickening in left antrum and left sphenoid sinuses Nasal polyp 51464534 J33 .9 status post revision left MMA, left ethmoidect cynthia, left NA window (limited medial maxillecto my), left SMR inferior turbinate Hypertroph y of nasal turbinates 04617097 J34.3 status post revision left MMA, left ethmoidect cynthia, left NA window (limited medial maxillecto my), left SMR inferior turbinate Obstructiv e sleep apnea syndrome 73777192 G47.33 Vasomotor rhinitis 25106 03 J30.0 Infection by methicillin sensitive Staphylococcus aureus 449440304 A49.01 [id number] VALARIE MEYERS PA-C PULMONARY [address], [address] [place] [address] 11/22/2016 13:38:19 11/22/2016 16:15:42 Obstructive sleep apnea of adult 6792692188 103 G47.33 patient is compliant with CPAP. Her residual AHI is optimal. I will change CPAP pressure to 8 18 centimeter s H2O because she feels that the pressure is too low when she first puts on CPAP. Persistent hypersomnia 727722968 G47.19 Patient is having excessive daytime sleepiness with an [place] sleepiness scale score of 14. I highly [...] at night. She has discontinu ed Rozerem. [id number] MD SULEIMAN LENZ ENT [address] [place] [address] 12/01/2016 13:10:29 12/01/2016 14:10:18 Chronic recurrent sinusitis 222155727 J32.9 status post revision left MMA, left ethmoidect cynthia, left NA window (limited medial maxillecto my), left SMR inferior turbinateC T sinus today shows mucosal thickening in left antrum and left sphenoid sinuses Nasal polyp 74979734 J33 .9 status post revision left MMA, left ethmoidect cynthia, left NA window (limited medial maxillecto my), left SMR inferior turbinate Hypertroph y of nasal turbinates 97212550 J34.3 status post revision left MMA, left ethmoidect cynthia, left NA window (limited medial maxillecto my), left SMR inferior turbinate Obstructiv e sleep apnea syndrome 68658794 G47.33 Vasomotor rhinitis 34479 03 J30.0 Infection by methicillin sensitive Staphylococcus aureus 541813559 A49.01 [id number] SHOAIB CHAUHAN MD [place] [facility] [address] [facility] [place] [address] 01/06/2017 09:19:27 01/06/2017 11:13:26 Chronic recurrent sinusitis 630357273 J32.9 status post revision left MMA, left ethmoidect cynthia, left NA window (limited medial maxillecto my), left SMR inferior turbinate( see above notes) Nasal polyp 33618284 J33 .9 status post revision left MMA, left ethmoidect cynthia, left NA window (limited medial maxillecto my), left SMR inferior turbinate Hypertroph y of nasal turbinates 68188114 J34.3 status post revision left MMA, left ethmoidect cynthia, left NA window (limited medial maxillecto my), left SMR inferior turbinate Obstructiv e sleep apnea syndrome 24144108 G47.33 Vasomotor rhinitis 46800 03 J30.0 Infection by methicillin sensitive Staphylococcus aureus 842602306 A49.01 h/o [id number] MD SULEIMAN LENZ ENT [address] [facility] [place] [address] 02/03/2017 10:55:36 02/04/2017 08:10:28 Chronic recurrent sinusitis 148039699 J32.9 status post revision left MMA, left ethmoidect cynthia, left NA window (limited medial maxillecto my), left SMR inferior turbinate( see above notes) Infection by methicillin sensitive Staphylococcus aureus 912165856 A49.01 h/o Nasal polyp 73386428 J33 .9 status post revision left MMA, left ethmoidect cynthia, left NA window (limited medial maxillecto my), left SMR inferior turbinate Hypertroph y of nasal turbinates 09316367 J34.3 status post revision left MMA, left ethmoidect cynthia, left NA window (limited medial maxillecto my), left SMR inferior turbinate Vasomotor rhinitis 53882 03 J30.0 Obstructiv e sleep apnea syndrome 62436780 G47.33 [id number] SHOAIB CHAUHAN MD [place] [facility] [address] [place] [address] 02/24/2017 10:44:32 02/24/2017 15:37:23 Chronic recurrent sinusitis 605787193 J32.9 status post revision left MMA, left ethmoidect cynthia, left NA window (limited medial maxillecto my), left SMR inferior turbinate( see above notes) Infection by methicillin sensitive Staphylococcus aureus 984282592 A49.01 h/o Nasal polyp 38069892 J33 .9 status post revision left MMA, left ethmoidect cynthia, left NA window (limited medial maxillecto my), left SMR inferior turbinate Hypertroph y of nasal turbinates 53587195 J34.3 status post revision left MMA, left ethmoidect cynthia, left NA window (limited medial maxillecto my), left SMR inferior turbinate Vasomotor rhinitis 80138 03 J30.0 Obstructiv e sleep apnea syndrome 96231672 G47.33 [id number] DEVON ISAACS APRN [facility] [address] [place] [address] 03/15/2017 14:24:33 03/18/2017 10:46:11 Neoplasm of uncertain behavior of skin 45215595 D48.5 R/O SCC - LEFT POSTERIOR LEGSHAVE BIOPSYSEE PROCEDURE NOTE Verruca vulgaris 7185071 3 B07.9 PT EDUCATED AND TREATMENT OPTIONS DISCUSSED. CRYO X 1 Senile hyperkeratosis 39 4020604 L82.1 BENIGN APPEARANCE , PT REASSURED Solar lentiginosis 99262 2006 L81.4 BENIGN APPEARANCE , PT REASSURED Pilar cyst of scalp 4011 55297 L72.11 BENIGN APPEARANCE , PT REASSURED Rosacea 387435812 L71.9 PT EDUCATED AND TREATMENT OPTIONS DISCUSSED. DISCUSSED NO GOOD TREATMENT OPTIONS FOR ERYTHEMA. ADVISED TO CALL OFFICE IF SHE DEVELOPS PAPULAR COMPONENT Actinic keratosis 281438 007 L57.0 CRYO X 5 Epidermoid cyst 95623412 6 L72.0 BENIGN APPEARANCE , PT REASSURED Hemangioma 700213644 D18 .00 BENIGN APPEARANCE , PT REASSURED [id number] MD SULEIMAN LENZ RD [address] [place] [address] 05/25/2017 07:54:05 05/25/2017 12:30:38 Obstructive sleep apnea syndrome 29498830 G47.33 Chronic re current sinusitis 886641542 J32.9 status post revision left MMA, left ethmoidect cynthia, left NA window (limited medial maxillecto my), left SMR inferior turbinate( see above notes)left endoscopic debridemen t 05/25/17 Infection by methicillin sensitive Staphylococcus aureus 808352497 A49.01 h/o Vasomotor rhinitis 13125 03 J30.0 Candidiasis of mouth 797 22509 B37.0 Screening for malignant neoplasm of breast 711922937 Z12.31 [id number] MD SULEIMAN LENZ RD [address] [place] [address] 07/18/2017 10:21:12 07/18/2017 12:13:48 Chronic sinusitis 51940960 J32.9 - Left Maxillary sinus endoscopy - minimal crusting at ostia and minimal inflamatio n of antral mucosa Laryngopha ryngeal reflux 865590317 K21.9 - S/p Fundoplica tion procedure (Dr. Cesar)- fibroptic laryngosco py today shows moderate LPR/aryten oiditis Vasomotor rhinitis 62388 03 J30.0 [id number] MD SULEIMAN LENZ ENT [address] [place] [address] 10/27/2017 13:16:24 11/01/2017 08:42:35 Laryngopharyngeal reflux 074510238 K21.9 - S/p Fundoplica tion procedure (Dr. Cesar)- fibroptic laryngosco py today shows moderate LPR/aryten oiditis Vasomotor rhinitis 41399 03 J30.0 Chronic re current sinusitis 486262950 J32.9 status post revision left MMA, left ethmoidect cynthia, left NA window (limited medial maxillecto my), left SMR inferior turbinate 06/17/16-L eft Nasal/Sinu s endoscopy/ debridemen t 10/27/17= crusty, slightly purulent drainage from the left maxillary sinus Infection by methicillin sensitive Staphylococcus aureus 063266269 A49.01 h/o Obstructiv e sleep apnea syndrome 52167979 G47.33 Candidiasis of mouth 797 17753 B37.0 Screening for malignant neoplasm of breast 509591703 Z12.31 [id number] SONI MAYES PA-C ORTHOPEDI [facility] [address] [place] [address] 10/31/2017 13:13:13 11/01/2017 07:56:44 Pain of shoulder region 66957481 M25.511 Rib pain 243389557 R07.8 1 Trigger finger 000281654 1 96947 M65.235 [id number] NEVAEH PA MD [facility]THOPEDI [facility] [address] [place] [address] 11/08/2017 08:51:09 11/08/2017 09:53:35 Pain of shoulder region 56809592 M25.511 good rom and strength - this appears to have been a direct contusion potentiall y with an occult rib fracture, costochond ral muscle injury, or serratus injury. Prognosis is good with conservati ve treatments . I recommende d some therapy to optimize recovery and outcome. Supportive management for now Rib pain 820156549 R07.8 1 traumatic [id number] DEVON ISAACS APRN [facility] [address] [place] [address] 11/10/2017 10:20:11 11/10/2017 13:40:15 Actinic keratosis 223428074 L57.0 CRYO X 6SEE PROCEDURE NOTELEFT NASAL TIP- PATIENT DEFERS TX TODFAY MALIGNANCY RISKS DISCUSSED WILL RTC IN NEXT FEW MONTHS TO TREAT PATIENT ADVISED WHAT TO EXPECT FROM FREEZING Senile hyperkeratosis 39 2587963 L82.1 CRYO X1 TO ISK'S LEFT THIGH OTHERS ARE BENIGN IN APPEARANCE AND PT REASSURED PATIENT ADVISED WHAT TO EXPECT FROM FREEZING Solar lentiginosis 18023 2006 L81.4 BENIGN APPEARANCE , PT REASSURED Pilar cyst of scalp 4011 04077 L72.11 BENIGN APPEARANCE , PT REASSURED Rosacea 218218531 L71.9 PT EDUCATED AND TREATMENT OPTIONS DISCUSSED. DISCUSSED NO GOOD TREATMENT OPTIONS FOR ERYTHEMA. ADVISED TO CALL OFFICE IF SHE DEVELOPS PAPULAR COMPONENT Hemangioma 490249670 D18 .00 BENIGN APPEARANCE , PT REASSURED History of squamous cell carcinoma of skin 011355201 Z85.828 NO RECURRENCE Skin sensa tion disturbance 74228593 R20.9 [id number] BALA RAHMAN, PT PHYSICAL THERAPY / HAND THERAPY [facility] [address] [place] [address] 11/14/2017 15:43:57 11/15/2017 07:27:03 Contusion of rib 284012968 S20.20XD Stiff back 894169482 M25 .60 Rib pain 850009937 R07.8 1 [id number] BALA RAHMAN, PT PHYSICAL THERAPY / HAND THERAPY [facility] [address] [facility] [place] [address] 12/08/2017 10:41:37 12/12/2017 07:37:54 Contusion of rib 543950093 S20.20XD Rib pain 623982031 R07.8 1 Abnormal posture 9654637 2 R29.3 Stiff back 147892147 M25 .60 [id number] DEVON ISAACS APRN [facility] [address] [place] [address] 12/22/2017 09:55:02 12/22/2017 11:58:37 Epidermoid cyst 265603195 L72.0 INFLAMED I&D IL KENALOG 5MG/ML X 0.3ML SEE PROCEDURE NOTE CONSENT SIGNED START DOXYCYCLIN E 100MG BID X 10 DAYS-SHE HAS HX MRSA Skin sensa tion disturbance 24356634 R20.9 [id number] CL DOLAN [facility]EDI [facility] [address] [place] [address] 01/27/2018 10:36:57 01/27/2018 13:24:40 Contusion of left knee 0259720660 1017953 S80.02XA Chondrocal cinosis of knee joint 308056668 M11.858 [id number] VALARIE MEYERS PA-C PULMONARY [address], [address] [place] [address] 01/30/2018 12:38:33 01/30/2018 16:42:44 Obstructive sleep apnea of adult 4849475501 103 G47.33 patient is compliant with CPAP. Her residual AHI is optimal. continue CPAP at current settings. Insomnia w ith sleep apnea 61309259 G47.00 continue Rozerem 4 milligrams by mouth nightly as needed. [id number] Duane RAMOS MD GENERAL SURGERY [address] [place] [address] 02/13/2018 10:06:25 02/13/2018 11:22:17 Epidermoid cyst of skin 226505143 L72.0 [id number] SHOAIB CHAUHAN MD [place] [facility] [address] [place] [address] 03/30/2018 14:01:39 04/03/2018 09:42:04 Chronic recurrent sinusitis 651674605 J32.9 status post revision left MMA, left ethmoidect cynthia, left NA window (limited medial maxillecto my), left SMR inferior turbinate 06/17/16-L eft Nasal/Sinu s endoscopy/ debridemen t 10/27/17= crusty, slightly purulent drainage from the left maxillary sinus Laryngopha ryngeal reflux 692448901 K21.9 - S/p Fundoplica tion procedure (Dr. 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 0253624 M65.342 left ring finger Fracture o f proximal phalanx of finger 564589457 S62.515D [id number] Duane RAMOS MD SURGERY SCHEDU[address] [place] [address] 04/25/2018 10:28:07 04/25/2018 10:29:04 [id number] Duane RAMOS MD GENERAL SURGERY [address] [place] [address] 05/10/2018 13:21:28 05/10/2018 15:21:07 Epidermoid cyst 649253763 L72.0 [id number] YURY HUERTA MD NEUROSURG [facility] [address] [place] [address] 05/29/2018 12:08:28 05/29/2018 14:46:06 Low back pain 313713302 M54.5 [id number] YURY ABRAHAM MD GASTRO [address], [address] [place] [address] 09/11/2018 13:09:46 09/11/2018 15:19:42 Dysphagia 54360956 R13.10 Epigastric pain 43806301 R10.13 History of fundoplication 950901604 Z98.890 Constipation 93285442 K5 9.00 [id number] GRAHAM DYKES MD [facility]EDI [facility] [address] [place] [address] 09/13/2018 13:23:23 09/13/2018 14:04:37 Acquired trigger finger 5643288 M65.30 Left ring finger, recommend release, has had injections . Osteoarthr osis of the carpometacarpal joint of the thumb 96743557 M18.9 Discussed basal joint arthroplas ty, she will likely schedule after her first postop visit for the ring trigger finger, if she feels comfortabl e enough. We will obtain x-rays of the right wrist on that day [id number] YURY ABRAHAM MD SURGERY SCHEDULE [address] [place] [address] 09/25/2018 10:24:31 09/25/2018 10:30:18 [id number] SHOAIB CHAUHAN MD [place] [facility] [address] [address] [place] [address] 09/28/2018 09:44:29 09/28/2018 14:06:51 Chronic recurrent sinusitis 730202184 J32.9 status post revision left MMA, left ethmoidect cynthia, left NA window (limited medial maxillecto my), left SMR inferior turbinate 06/17/16-L eft Nasal/Sinu s endoscopy/ debridemen t 10/27/17= crusty, slightly purulent drainage from the left maxillary sinus-Left Maxillary Sinus Debridemen t 09/28/18 - culture obtained Laryngopha ryngeal reflux 462777635 K21.9 - s/p Fundoplica tion procedure (Dr. Cesar)- fibroptic laryngosco py today shows moderate LPR/aryten oiditis Vasomotor rhinitis 19955 03 J30.0 Infection by methicillin sensitive Staphylococcus aureus 509486936 A49.01 h/o left maxillary sinusitis secondary to MRSA; 1 prior culture the culture also grew out microbacte rium Obstructiv e sleep apnea syndrome 99624276 G47.33 -using CPAP nightly Screening for malignant neoplasm of breast 294582297 Z12.31 [id number] CHANDAN BECERRIL [place] [facility] [address] [facility] [place] [address] 09/28/2018 11:29:33 09/28/2018 12:13:32 [id number] GRAHAM DYKES MD SURGERY SCHEDULE [address] [place] [address] 10/03/2018 07:50:05 10/03/2018 07:53:45 [id number] GRAHAM DYKES MD [facility]EDI [facility] [address] [place] [address] 10/18/2018 13:40:57 10/18/2018 14:56:37 Acquired trigger finger 5635245 M65.30 Status post release and a little more painful this time, encouraged her to continue exercises, light use, follow-up 4 weeks final check. If still very symptomati c at that time consider therapy Osteoarthr osis of the carpometacarpal joint of the thumb 18603209 M18.9 No specific treatment at this point, we will get x-rays when she is ready [id number] DEVON ISAACS APRN [facility] [address] [place] [address] 11/14/2018 10:22:07 11/14/2018 11:18:42 Actinic keratosis 565990805 L57.0 CRYO X 13SEE PROCEDURE NOTERISKS OF CRYO SURGERY DISCUSSED; POST OP CARE INSTRUCTIO NS PROVIDED. VERBAL CONSENT TO TREAT GIVEN BY PATIENT. RECOMMEND RECHECK 6 MONTHS Senile hyperkeratosis 39 5383313 L82.1 BENIGN APPEARANCE , PT REASSURED Solar lentiginosis 12929 2007 L81.4 BENIGN APPEARANCE , PT REASSURED Pilar cyst of scalp 4011 57976 L72.11 BENIGN APPEARANCE , PT REASSURED Rosacea 372602787 L71.9 PT EDUCATED AND TREATMENT OPTIONS DISCUSSED. DISCUSSED COULD CONSULT ON LASER. ADVISED TO CALL OFFICE IF SHE DEVELOPS PAPULAR COMPONENT Hemangioma 881302716 D18 .00 BENIGN APPEARANCE , PT REASSURED History of squamous cell carcinoma of skin 474121606 Z85.828 NO EVIDENCE OF RECURRENCE . Skin sensa tion disturbance 96157745 R20.9 Inflamed s eborrheic keratosis 396277670 L82.0 CRYO X 1 SEE PROCEDURE NOTE RISKS OF CRYO SURGERY DISCUSSED; POST OP CARE INSTRUCTIO NS PROVIDED. VERBAL CONSENT TO TREAT GIVEN BY PATIENT. [id number] GRAHAM DYKES MD [facility]EDI [facility] [address] [address] 11/15/2018 13:29:26 11/15/2018 14:49:08 Acquired trigger finger 6523130 M65.30 6 weeks post release, very symptomati c this point, wants to try putty for strengthen ing which I think is a good idea, [facility] hand therapy, follow-up 4 weeks final check advised, assured. [id number] GRAHAM DYKES MD [facility] [address] [place] [address] 12/13/2018 13:06:49 12/13/2018 15:20:12 Flexor tenosynovitis of finger 000105345 M65.849 Right ring finger, 10 weeks status post trigger finger release, may be fraying of the flexor tendon and a bit of scar tissue, observe 6 weeks consider revision with possible partial FDS excision [id number] SHOAIB CHAUHAN MD [place] [facility] [address] [place] [address] 01/01/2019 09:47:04 01/01/2019 12:05:06 Chronic recurrent sinusitis 110249564 J32.9 status post revision left MMA, left [...] left; moderate arytenoidi tis Laryngopha ryngeal reflux 084066217 K21.9 - s/p Fundoplica tion procedure (Dr. Cesar)- fibroptic laryngosco py 01/01/19 shows moderate LPR/aryten oiditis Vasomotor rhinitis 05454 03 J30.0 Obstructiv e sleep apnea syndrome 30930901 G47.33 -using CPAP nightly Sensorineu ral hearing loss of bilateral ears 275371081 H90.3 Neck pain 14841071 M54.2 appears to be the result of moderately intense arytenoidi tis secondary to laryngopha ryngeal reflux [id number] CHANDAN ZAPIEN ENT [address] [place] [address] 01/01/2019 10:28:37 01/01/2019 11:25:03 Sensorineural hearing loss of bilateral ears 822449667 H90.3 Dysfunctio n of eustachian tube 67513964 H69.93 Bilateral tinnitus 35286 79303 102 H93.13 Otalgia 97769322 H92.01 [id number] GRAHAM DYKES MD [facility]I [facility] [address] [place] [address] 01/24/2019 13:50:52 01/24/2019 14:42:45 Flexor tenosynovitis of finger 665959847 M65.849 Left ring finger, still mildly triggering [...] call her or send results the computer. [id number] GRAHAM DYKES MD [facility]I [facility] [address] [place] [address] 04/09/2019 13:55:39 04/09/2019 15:02:23 Flexor tenosynovitis of finger 369845333 M65.849 Trigger finger, right thumb. Recommend release. Left ring finger, observe. She has some limitation s, we can discuss in the future. Osteoarthr osis of the carpometacarpal joint of the thumb 97007521 M18.9 Right thumb, recommend basal joint arthroplas ty APL suspension plasty [id number] FERNANDA CHRISTIAN, JACK SPOOLER TENDER GASTRO [address] [place] [address] 04/24/2019 10:44:50 05/02/2019 09:50:41 Diarrhea 40421850 R19.7 R14.0 R15.2 R63.4 [id number] GRAHAM DYKES MD SURGERY SCHEDULE [address] [place] [address] 05/22/2019 08:12:22 05/22/2019 08:13:07 [id number] SHOAIB CHAUHAN MD [place] E[place] [address] [place] [address] 05/30/2019 12:45:13 05/30/2019 14:09:47 Neck pain 40215970 M54.2 appears to be the result of moderately intense arytenoidi tis secondary to laryngopha ryngeal reflux -resolved Laryngopha ryngeal reflux 249333336 K21.9 - s/p Fundoplica tion procedure (Dr. Cesar)- fibroptic laryngosco py 01/01/19 shows moderate LPR/aryten oiditis Chronic re current sinusitis 518607585 J32.9 status post revision left MMA, left [...] for culture Obstructiv e sleep apnea syndrome 98002107 G47.33 -using CPAP nightly Vasomotor rhinitis 05344 03 J30.0 Sensorineu ral hearing loss of bilateral ears 807664403 H90.3 Hypertroph y of nasal turbinates 24091127 J34.3 status post revision left MMA, left ethmoidect cynthia, left NA window (limited medial maxillecto my), left SMR inferior turbinate Chronic hoarseness 69885 03673 105 R49.0 Chronic cough 49662931 R 05 [id number] SONI MAYES PA-C [facility] [address] [place] [address] 06/04/2019 13:17:27 06/04/2019 16:43:43 Postoperative care 797701513 Z48.89 Flexor ten osynovitis of finger 457192294 M65.849 doing well status post release of the right trigger thumb. Osteoarthr osis of the carpometacarpal joint of the thumb 06210972 M18.9 doing well status post right thumb CMC arthroplas ty with suspension plasty [id number] EVELYN CANALES, OTR/L, CHT PHYSICAL THERAPY / HAND TH[facility]APY [facility] [address] [place] [address] 06/04/2019 13:58:57 06/04/2019 14:53:21 Osteoarthrosis of the carpometacarpal joint of the thumb 96280610 M18.9 Right CMC Arthro. [id number] FERNANDA CHRISTIAN, JACK SPOOLER TENDER GASTRO [address], [address] [place] [address] 06/13/2019 11:19:47 06/13/2019 13:52:10 Irritable bowel syndrome with diarrhea 078004392 K58.0 R14.0 [id number] GRAHAM DYKES MD [facility] [address] [place] [address] 07/02/2019 10:19:09 07/02/2019 10:43:18 Osteoarthrosis of the carpometacarpal joint of the thumb 59967483 M18.9 doing well status post right thumb [...] any concerns. Flexor ten osynovitis of finger 112037397 M65.849 doing well status post release of the right trigger thumb. [id number] SHOAIB CHAUHAN MD [place] [facility] [address] [place] [address] 09/06/2019 08:02:26 09/10/2019 14:48:56 Chronic recurrent sinusitis 229887002 J32.9 status post revision left MMA, left [...] of the maxillary sinus 09/06/2019 Chronic hoarseness 75184 02847 105 R49.0 Chronic cough 18883284 R 05 Laryngopha ryngeal reflux 709093612 K21.9 - s/p Fundoplica tion procedure (Dr. Cesar)- fibroptic laryngosco py 01/01/19 shows moderate LPR/aryten oiditis Neck pain 63694921 M54.2 appears to be the result of moderately intense arytenoidi tis secondary to laryngopha ryngeal reflux -resolved Obstructiv e sleep apnea syndrome 90836962 G47.33 -using CPAP nightly Vasomotor rhinitis 84225 03 J30.0 Sensorineu ral hearing loss of bilateral ears 311254825 H90.3 Hypertroph y of nasal turbinates 80030183 J34.3 status post revision left MMA, left ethmoidect cynthia, left NA window (limited medial maxillecto my), left SMR inferior turbinate [id number] GRAHAM DYKES MD [facility] [address] [place] [address] 10/01/2019 07:49:17 10/01/2019 09:46:55 Osteoarthrosis of the carpometacarpal joint of the thumb 28692810 M18.9 Pain volar radial aspect thumb difficulty lifting, localized FCR tunnel, TherapyFol low-up follow-up 6 weeks to consider injection, FCR tenotomy last resort Left basal joint arthritis, injection Flexor ten osynovitis of finger M65.849 Left ring finger trigger finger with some palmar fibrous thickening and MP contractur e, observe, stretch for now. [id number] BALA RAHMAN, PT PHYSICAL THERAPY / [facility]APY [facility] [address] [address] 10/01/2019 09:22:41 10/02/2019 07:24:59 Osteoarthritis of joint of hand 40830816 M19.041 Pain in right hand 81719 93449 36892 M79.641 Stiffness of joint of right hand 2467075842 61534 M25.456 [id number] LOUISE ROSS PA-C [facility] [address] [place] [address] 02/13/2020 08:37:07 02/13/2020 10:10:49 Actinic keratosis 068473268 L57.0 Educated on premaligna nt Dx Cryo x 8 - f/up if any treated lesions persist After care instructio ns were given Daily Broad spectrum SPF 30+ recommende d Senile hyperkeratosis 39 0837641 L82.1 Benign reassuranc e she has SKs on back of legs which she was reassured of today Solar lentiginosis 40744 2007 L81.4 Benign reassuranc e Rosacea 308724887 L71.9 ETR - mild Benign reassuranc e. She has been educated on laser tx option before Hemangioma 323026309 D18 .00 Benign reassuranc e History of squamous cell carcinoma of skin 337213384 Z85.828 left posterior leg- no EOR s/p Mohs- doing well [id number] GRAHAM DYKES MD SURGERY SCHEDULE [address] [place] [address] 02/14/2020 09:57:01 02/14/2020 09:58:55 [id number] SONI MAYES PA-C [facility] [address] [place] [address] 02/27/2020 10:40:58 02/27/2020 15:00:55 Osteoarthrosis of the carpometacarpal joint of the thumb 13718415 M18.9 doing well status post left thumb CMC arthroplas ty with suspension plasty. [id number] EVELYN CANALES, OTR/L, CHT PHYSICAL THERAPY / [facility] [address] [place] [address] 02/27/2020 11:53:16 02/27/2020 13:44:03 Osteoarthrosis of the carpometacarpal joint of the thumb 51412604 M18.9 left CMC Arthro. [id number] GRAHAM DYKES MD [facility] [address] [place] [address] 03/26/2020 09:19:54 03/26/2020 10:17:59 Osteoarthrosis of the carpometacarpal joint of the thumb 69256345 M18.9 doing well status post left thumb CMC arthroplas ty with suspension plasty, Mobilize at this point progressed full use as tolerated. [id number] GRAHAM DYKES MD [facility] [address] [place] [address] 05/07/2020 08:47:15 05/07/2020 09:55:45 Trigger finger 7463947177 12668 M65.30 Left ring 1.5 years status post [...] weeks or sooner for injection if needed [id number] BALA RAHMAN, PT PHYSICAL THERAPY / [facility] [address] [place] [address] 05/09/2020 13:51:21 05/12/2020 07:50:35 Osteoarthrosis of the carpometacarpal joint of the thumb 27785845 M18.9 Thumb joint stiff 725392 002 M25.642 Contractur e of joint of finger of left hand due to scar 5133155342 0518871 L90.5 [id number] BALA RAHMAN, PT PHYSICAL THERAPY / [facility] [address] [place] [address] 05/20/2020 15:08:44 05/21/2020 09:19:22 Contracture of joint of finger of left hand due to scar 0718433643 2544270 L90.5 Osteoarthr osis of the carpometacarpal joint of the thumb 06366750 M18.9 Thumb joint stiff 340416 002 M25.366 [id number] BALA RAHMAN, PT PHYSICAL THERAPY / [facility] [address] [place] [address] 06/04/2020 09:28:49 06/04/2020 14:39:59 Contracture of joint of finger of left hand due to scar 9313924192 6076620 L90.5 Thumb joint stiff 122534 002 M25.642 Osteoarthr osis of the carpometacarpal joint of the thumb 58971484 M18.9 [id number] BALA RAHMAN, PT PHYSICAL THERAPY / [facility] [address] [place] [address] 06/13/2020 12:27:47 06/13/2020 16:10:59 Osteoarthrosis of the carpometacarpal joint of the thumb 86712384 M18.9 Thumb joint stiff 463500 002 M25.222 [id number] BALA RAHMAN, PT PHYSICAL THERAPY / [facility] [address] [place] [address] 06/23/2020 09:11:42 06/24/2020 07:54:55 Osteoarthrosis of the carpometacarpal joint of the thumb 08666451 M18.9 Thumb joint stiff 920480 002 M25.642 Pain of ri ght shoulder joint 0695881812 4219211 M25.514 [id number] BALA RAHMAN, PT PHYSICAL THERAPY / [facility] [address] [place] [address] 07/04/2020 10:43:36 07/04/2020 16:13:23 Contracture of joint of finger of left hand due to scar 9213294103 6773620 L90.5 Pain of ri ght shoulder joint 3082291693 7496043 M25.511 Osteoarthr osis of the carpometacarpal joint of the thumb 82269163 M18.9 [id number] GRAHAM DYKES MD [facility] [address] [place] [address] 07/30/2020 14:11:02 07/30/2020 14:34:09 Trigger finger 1564223572 18581 M65.30 Right long finger, triggering . She requests surgical management after the first of the year. [id number] GRAHAM DYKES MD SURGERY SCHEDULE [address] [place] [address] 09/02/2020 06:02:12 09/02/2020 08:10:32 [id number] LOUISE ROSS PA-C [facility] [address] [place] [address] 09/03/2020 11:04:51 09/03/2020 12:11:24 History of squamous cell carcinoma of skin 723058484 Z85.828 L posterior leg- s/p Mohs, no EOR and doing well Senile hyperkeratosis 39 3917196 L82.1 Benign reassuranc e Solar lentiginosis 10003 2006 L81.4 Benign reassuranc e Rosacea 359977512 L71.9 Benign reassuranc e ETR - mild She has been educated on laser tx option before Hemangioma 393679136 D18 .00 Benign reassuranc e Pilar cyst of scalp 4011 06871 L72.11 Benign reassuranc e Actinic keratosis 884929 007 L57.0 L nasal sidewall - pt deferred tx with LN, will monitor Educated on premaligna nt Dx Cryo x 6 After care instructio ns were given Daily Broad spectrum SPF 30+ recommende d Multiple b enign melanocytic nevi 199301235 D22.9 Benign reassuranc e Neoplasm o f uncertain behavior of skin 68370835 D48.5 L clavicle - r/o BCC Shave bx taken - see procedure note Pt tolerated well, after care given Varicose v eins of lower extremity 63302818 I83.892 Benign reassuranc e Compressio n stockings 15-20 mmg Hg Basal cell carcinoma of truncal skin 768642469 C44.519 L clavicle - clinical BCC, path confirmed nodular BCC EDC x 3 - see procedure note Pt tolerated well History of actinic keratosis 0501521654 104 Z87.2 Continue to monitor Recommende d to start niacinamid e supplement 500 mg BID [id number] EVELYN CANALES, OTR/L, CHT PHYSICAL THERAPY / [facility]APY [facility] [address] [address] 09/05/2020 09:40:17 09/05/2020 11:39:24 Trigger finger of right hand 4599232130 8279292 M65.30 LF TFR [id number] EVELYN CANALES, OTR/L, T PHYSICAL THERAPY / [facility]Y [facility] [address] [place] [address] 09/10/2020 10:52:06 09/10/2020 13:03:15 Trigger finger of right hand 0881589095 1192950 M65.30 LF TFR [id number] EVELYN CANALES, OTR/L, T PHYSICAL THERAPY / [facility] [address] [place] [address] 09/19/2020 09:41:27 09/19/2020 13:20:36 Trigger finger of right hand 8315603566 1379716 M65.30 LF TFR [id number] SONI MAYES PA-C [facility] [address] [place] [address] 09/19/2020 09:39:42 09/19/2020 10:09:36 Trigger finger 7391467791 59438 M65.331 doing well status post release of the right long trigger finger. Pain in right arm 768690 004 M79.601 ? residual pain from tourniquet ? [id number] EVELYN CANALES, OTR/L, T PHYSICAL THERAPY / [facility] [address] [place] [address] 10/24/2020 08:19:40 10/24/2020 10:47:37 Trigger finger of right hand 4777107878 4177151 M65.30 LF TFR [id number] GRAHAM DYKES MD [facility] [address] [place] [facility] 10/24/2020 08:20:12 10/24/2020 09:13:40 Trigger finger 8847797598 22694 M65.331 doing well status post release of the right long trigger finger, Advised, agree with use of tubes splint as needed to prevent PIP contractur e, otherwise will resolve when the swelling comes down. Follow-up as needed. NB left long finger triggered once, is a little tender to the touch, she may call back for treatment Pain in right arm 393416 004 M79.601 Did not mention this today apparently it has resolved [id number] VALARIE MEYERS PA-C PULMONARY [address], [address] [place] [address] 11/05/2020 08:52:36 11/05/2020 13:39:39 Obstructive sleep apnea of adult 9306364857 103 G47.33 residual AHI is optimal. I [...] t fatigue. Insomnia w ith sleep apnea 50976765 G47.00 I sent another script of Sylvhco45 milligrams by mouth nightly to use in place of melatonin if covered by insurance. [id number] LOUISE ROSS PA-C [facility] [address] [place] [address] 12/03/2020 10:12:45 12/03/2020 11:05:03 History of squamous cell carcinoma of skin 286601151 Z85.828 L posterior leg- s/p Mohs, no EOR and doing well History of malignant basal cell neoplasm of skin 023849632 Z85.828 L clavicle - Well healed ; no EOR Neoplasm o f uncertain behavior of skin 70500477 D48.5 r/o BCC vs SCC Left shoulder shave bx today wound care instructio ns given f/up per path Tx with EDC today ; pt tolerated well Patient ad vised about exposure to the sun 708780805 Z71.89 Counseled on sun protective clothing and daily UV protection with otc broad-spec trum SPF 30+ on exposed areas. Regular self-skin exams recommende d. Pt encouraged to RTC with any new/changi ng lesions. 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 391123343 D04.9 Path confirmed on left shoulder; tx with EDC x 3, recheck site in 3 months [id number] LOUISE ROSS PA-C [facility] [address] [place] [address] 03/04/2021 10:28:24 03/04/2021 11:15:00 History of squamous cell carcinoma of skin 328357087 Z85.828 L posterior leg- s/p Mohs, no EOR continue to monitor Solar lentiginosis 61745 2007 L81.4 Benign reassuranc e Rosacea 786006609 L71.9 Benign reassuranc e ETR - mild She has been educated on laser tx option before Hemangioma 397811029 D18 .00 Benign reassuranc e Pilar cyst of scalp 4011 59350 L72.11 Benign reassuranc e Multiple b enign melanocytic nevi 950471782 D22.9 Benign reassuranc e Raised panchito orrheic keratosis 5215245262 72652 L82.1 Benign reassuranc e History of squamous cell carcinoma in situ 6022336643 9105 Z86.008 L shoulder - s/p EDC, no EOR continue to monitor History of malignant basal cell neoplasm of skin 664928672 Z85.828 L clavicle- s/p EDC, no EOR continue to monitor Wound of skin 506457785 T14.8XXA Abrasion from reported trauma, slow to heal due to location and diabetic statusNo evidence of cellulitis Will have continue mupirocin 2 % topical ointment Patient ad vised about exposure to the sun 629982319 Z71.89 Counseled on sun protective clothing and daily UV protection with otc broad-spec trum SPF 30+ on exposed areas. Regular self-skin exams recommende d. Pt encouraged to RTC with any new/changi ng lesions. [id number] GRAHAM DYKES MD [facility] [address] [place] [address] 03/25/2021 10:26:20 03/25/2021 11:18:59 Acquired trigger finger 9387002 M65.30 Left small finger, injected today. Call for repeat injection or release Dupuytren' s disease of palm 263604969 M72.0 Minimal contractur e observe for now Idiopathic osteoarthritis 172633814 M19.91 both hands in particular right long finger PIP joint, warm soaks, gentle exercises, follow-up as needed. [id number] CHANDA ROMERO PA-C [facility] [address] [place] [address] 03/26/2021 09:49:17 03/26/2021 11:08:33 History of total knee arthroplasty 1178260033 105 Z96.659 We discussed conservati ve and [...] is for viscosuppl ementation Follow up prn [id number] VALARIE MEYERS PA-C PULMONARY [address], [address] [place] [address] 05/05/2021 15:50:26 05/05/2021 16:14:56 Obstructive sleep apnea of adult 3398667670 103 G47.33 we discussed CPAP recall detail. I'm going to order patient a new machine. If she does continue to use her old machine, she will discontinu e use of CPAP cleaning machine. [id number] LOUISE ROSS PA-C [facility] [address] [place] [address] 05/18/2021 10:17:14 05/18/2021 11:32:11 Raised seborrheic keratosis 2934686407 97958 L82.1 Benign reassuranc e Solar lentiginosis 69498 2006 L81.4 Benign reassuranc eActinic damage on chest, but no suspicious changing lesions. Will check again in tinue otc broad-spec trum SPF 30+ on exposed areas Patient ad vised about exposure to the sun 812984366 Z71.89 Counseled on sun protective clothing and daily UV protection with . Regular self-skin exams recommende d. Pt encouraged to RTC with any new/changi ng lesions. History of malignant basal cell neoplasm of skin 840732960 Z85.828 L clavicle- s/p EDC, no EOR continue to monitor History of squamous cell carcinoma in situ 6086445438 9105 Z86.008 L shoulder - s/p EDC, no EOR continue to monitor [id number] SHOAIB CHAUHAN MD [facility] [address] [place] [address] 08/10/2021 15:57:20 08/11/2021 07:51:48 Chronic recurrent sinusitis 565083756 J32.9 -2007 - Septoplast y, Left ESS [...] endoscopy 01/01/19=y emerita/rick n crusting in the left-nasal /sinus endoscopic [...] middle meatus Hypertroph y of nasal turbinates 82939313 J34.3 status post revision left MMA, left ethmoidect cynthia, left NA window (limited medial maxillecto my), left SMR inferior turbinate Laryngopha ryngeal reflux 702628900 K21.9 - s/p Fundoplica tion procedure (Dr. Cesar)- fibroptic laryngosco py 01/01/19 shows moderate LPR/aryten oiditis Neck pain 76006705 M54.2 appears to be the result of moderately intense arytenoidi tis secondary to laryngopha ryngeal reflux -resolved Obstructiv e sleep apnea syndrome 69061174 G47.33 -using CPAP nightly Vasomotor rhinitis 89786 03 J30.0 Sensorineu ral hearing loss of bilateral ears 584573962 H90.3 [id number] LOUISE ROSS PA-C [facility] [address] [place] [address] 09/23/2021 09:39:46 09/23/2021 10:38:19 Solar lentiginosis 861714727 L81.4 Benign reassuranc e Raised panchito orrheic keratosis 5299419875 76465 L82.1 Benign reassuranc e History of malignant basal cell neoplasm of skin 373643888 Z85.828 L clavicle- s/p EDC, no EOR continue to monitor History of squamous cell carcinoma in situ 1531880683 9105 Z86.008 L shoulder - s/p EDC, no EOR continue to monitor Patient ad vised about exposure to the sun 159944471 Z71.89 Counseled on sun protective clothing and daily UV protection with . Regular self-skin exams recommende d. Pt encouraged to RTC with any new/changi ng lesions. Actinic keratosis [address] x 3pt tolerated wellafter care instructio ns were given Hemangioma 025612486 D18 .00 Benign reassuranc e Severe dry skin 26013191 2 L85.3 Educated regarding bathing strategies , [...] History of squamous cell carcinoma of skin 300820827 Z85.828 L posterior leg- s/p Mohs, no EOR continue to monitor Pilar cyst of scalp 4011 93563 L72.11 Benign reassuranc e Multiple b enign melanocytic nevi 279379550 D22.9 Benign reassuranc e [id number] GRAHAM DYKES MD [facility] [address] [place] [address] 09/28/2021 10:42:16 09/28/2021 12:04:35 Trigger finger of left hand 3379334025 3014800 M65.30 Left small finger. She had a left ring finger release of the trigger finger has resultant stiffness, limited extension and skin adhesions likely related to Dupuytren' s disease. Recommend subtotal palmar fasciectom y ring finger with flexor tenolysis and possible jonathan reconstruc tion if needed, possible MC capsulecto my if needed. Therapy postoperat ively in [place] [id number] GRAHAM DYKES MD SURGERY SCHEDULE [address] [place] [address] 10/08/2021 07:21:00 10/08/2021 07:21:24 [id number] GRAHAM DYKES MD [facility] [address] [place] [address] 10/19/2021 13:32:57 10/19/2021 13:51:54 Acquired trigger finger 7834089 M65.30 Palmar fasciectom y left ring finger [...] now and consider injection if it worsens [id number] GRAHAM DYKES MD [facility] [address] [place] [address] 11/18/2021 13:09:41 11/18/2021 13:32:25 Acquired trigger finger 3962099 M65.30 Palmar fasciectom y left ring finger Tenolysis FDP left ring finger tenolysis FDS left ring finger Capsulecto my left ring finger MP joint Reconstruc tion A0 jonathan left ring finger with FDS tendon graft Release left small trigger finger 6 weeks postop doing well continue therapyFol low-up 6 weeks or may cancel if doing well. Encouraged to continue intrinsic stretch [id number] FERNANDA CHRISTIAN, FRANDY GASTRO [facility] [address], [address] [place] [address] 11/18/2021 11:26:55 11/19/2021 07:36:48 Chronic idiopathic constipation 29177301 K59.04 Trial of Linzess, call office in 1-2 weeks if helping, not helping.Re view of CT scan A/P with IV, PO contrast, negative.R efer to cardiology , dizziness. Upper endoscopy recommende d, history of hiatal hernia with Sierra repair.Fol low up 2-3 weeks after EGD, call for any questions or concerns. Patient verbalized understand ing. [id number] KAMILAH LOPEZ, FRANDY [facility] [address] [place] [address] ,[address] [place] [address] 11/19/2021 09:46:23 11/23/2021 09:56:46 Near syncope 338242857 R55 Patient notes that these episodes of [...] family history of first-degr ee relatives with [place]. Patient had a duplex Doppler study of carotid and vertebral arteries performed on 12/23/2008 due to dizziness and anomaly of the left side of neck. Right ICA with mild turbulence .Systolic velocity up to 111 cm/s. The right ECA and CCA normal velocities , normal waveforms, normal ICA/CCA systolic ratio. Moderate homogenous hyperechoi c plaque at the right ICA -0 9% stenosis. Left ICA with mild turbulence [...] fainting episodes. Obstructiv e sleep apnea syndrome 15670739 G47.33 Patient is known to Valarie Meyers PA-C from pulmonary medicine for her [facility]. She has been awaiting a new machine. Sleep study performed on 07/11/2015 revealed:1 . Severe obstructiv e sleep apnea. The AIH was 34.7. 2. The patient has very poorly consolidat ed sleep. 3. The patient has significan tly elevated periodic limb movement index. Essential hypertension 23107932 I10 Blood pressure in the office today is 119/68. This appears stable on losartan 50 mg daily. Palpitations 01489852 R0 0.2 14-day E patch ordered, as these palpitatio ns are not occurring daily. Supraventr icular tachycardia 7837736 I47.1 She does have a history of [...] 80 mg extended release once daily. Overweight 771177874 E66 .3 BMI 25.6. Counseling discussed Dyspnea [...] and normal right ventricula r systolic pressures. [id number] BEN HERNANDEZ MD [facility] [address] [place] [address] 11/19/2021 12:18:51 11/19/2021 12:19:10 Palpitations 86809371 R00.2 [id number] BEN HERNANDEZ MD [facility] [address] [place] [address] [place] [address] 12/03/2021 12:53:02 12/04/2021 08:15:47 Mitral valve prolapse 877532442 I34.1 Syncope 482749833 R55 [id number] TONIE CARRINGTON MD [facility] [address] [place] [address] [place] [address] 12/03/2021 12:53:49 12/04/2021 08:15:05 Carotid bruit 924177967 R09.89 [id number] KAMILAH LOPEZ, JACK [facility]PO[facility] [address] ,[address] [place] [address] 12/11/2021 10:18:29 12/14/2021 08:52:23 Near syncope 822425179 R55 Patient notes that these episodes of [...] assessment (8 year, women) score: 20.1% Palpitations 01657842 R0 0.2 14-day E patch results revealed rare ventricula r ectopy. No pauses. No A. fib/flutte r. Patient states that her palpitatio ns are well controlled on propranolo l 80 mg extended release daily. Supraventr icular tachycardia 3779092 I47.1 She does have a history of [...] is helping with great relief. Essential hypertension 37294476 I10 Blood pressure in the office today is 118/60. The last visit it was 119/68. This appears stable on losartan 50 mg daily. Obstructiv e sleep apnea syndrome 99273694 G47.33 Patient is known to Valarie Meyers [...] to undergo another sleep apnea study. Overweight 559102630 E66 .3 BMI stable at 25.7. The last visit it was 25.6. Diet; I counseled patient on maintainin g a less than 2 g sodium restrictio n diet plan. She is also agreeable to not add salt additional ly to her food. We discussed weight reduction as well during our consultati on today. [id number] GRAHAM CORONA MD UROLOGY [facility] [address] 1 12/14/2021 10:45:13 12/14/2021 12:39:30 Cyst of kidney 570201866 N28.1 Right flank pain 0824307 09 R10.9 [id number] YURY ABRAHAM MD SURGERY SCHEDULE [address] 1 12/18/2021 11:14:51 12/18/2021 11:15:52 [id number] GRAHAM DYKES MD ORTHOPEDI CS [facility] [address] [place] [address] 12/30/2021 11:44:22 12/30/2021 12:17:04 Acquired trigger finger 1731072 M65.30 Palmar fasciectom y left ring finger Tenolysis FDP left ring finger tenolysis FDS left ring finger Capsulecto my left ring finger MP joint Reconstruc tion A0 jonathan left ring finger with FDS tendon graft Release left small trigger detzfo03 weeks postop, stable. Advised, assured, follow-up as needed if any change. [id number] C LEONEL PAYNE PA-C [facility]OPEDI [facility] [address] [place] [address] 01/22/2022 09:14:49 01/22/2022 09:41:44 Osteoarthritis of knee 049536851 M17.9 [id number] FERNANDA CHRISTIAN APRN GASTRO [address] [facility], [address] [place] [address] 01/06/2022 11:11:20 01/06/2022 13:03:58 Delayed gastric emptying 593016716 K30 4 hour gastric emptying scan.Trial of Motegrity, take as discussed, call office in 1-2 weeks if helping. Abdominal bloating 59841 9008 R14.0 Gastroesop hageal reflux disease without esophagitis 328423249 K21.9 Chronic id iopathic constipation 18705787 K59.04 [id number] LOUISE ROSS PA-C D[facility]MAT[facility]O [facility] [address] [place] [address] 1 03/09/2022 11:07:23 03/09/2022 13:04:23 History of squamous cell carcinoma of skin 345962659 Z85.828 L posterior leg s/p Mohs - No EOR, continue to monitor History of malignant basal cell neoplasm of skin 993577723 Z85.828 L clavicle s/p EDC - No EOR, continue to monitor History of squamous cell carcinoma in situ 9128812550 9105 Z86.008 L shoulder s/p EDC - No EOR, continue to monitor Solar lentiginosis 39420 2007 L81.4 Benign reassuranc e Raised panchito orrheic keratosis 6824072439 88743 L82.1 Benign reassuranc e Hemangioma 507570206 D18 .00 Benign reassuranc e Multiple b enign melanocytic nevi 829122092 D22.9 Benign reassuranc e Pilar cyst of scalp 4011 77584 L72.11 Benign reassuranc e Actinic keratosis 883608 007 L57.0 Educated patient on pre-malign ant dxTreated today with LN x 2See procedure notePatien t tolerated wellAfter care instructio ns were given Patient ad vised about exposure to the sun 004302556 Z71.89 Counseled on sun protective clothing/h ats and daily UV protection with [facility] broad-spec trum SPF 30+ on exposed areas. Regular self-skin exams recommende d. Pt encouraged to RTC with any new/changi ng lesions. Neoplasm o f uncertain behavior of skin 05485695 D48.5 7 mm pink, scaly papule on the L calfr/o - SCC Shave removal with ED to baseSee procedure noteWound care was givenConse nt was signedPhot o takenF/up per path [id number] LOUISE ROSS PA-C [facility] [address] [place] [address] 03/31/2022 15:39:00 04/01/2022 08:08:33 Squamous cell carcinoma of skin of lower extremity 908333160 C44.729 L calfBx proven superficia lly invasive well differenti ated SCC per pathEDC x 3 todaySee procedure notePatien t tolerated wellAfter care instructio ns givenF/up 3 months [id number] VALARIE MEYERS PA-C PULMONARY [address] [facility], [address] [place] [address] 06/30/2022 10:30:38 06/30/2022 11:41:29 Obstructive sleep apnea syndrome 71483299 G47.33 patient would like to discontinu e CPAP. She has difficulty sleeping with the machine at times. She has lost weight since her original sleep study approximat iván 10% of her body weight. A repeat sleep study has been ordered. Insomnia w ith sleep apnea 76754225 G47.00 Continue Rozarem as needed. [id number] SANGITA NGUYEN [facility] [address] [place] [address] 07/05/2022 10:45:16 07/05/2022 11:11:05 History of squamous cell carcinoma of skin 025165695 Z85.828 L posterior leg s/p Mohs - No EOR, continue to monitorMos t recently, L calf s/p EDC 2021 - No EOR, continue to monitor Patient ad vised about exposure to the sun 999201499 Z71.89 Counseled on sun protective clothing/h ats and daily UV protection with [facility] broad-spec trum SPF 30+ on exposed areas. Regular self-skin exams recommende d. Pt encouraged to RTC with any new/changi ng lesions. 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 Pt would like a refills of Elidel 1% topical cream for her Clarence's rash which flares in winterTrie d tacrolimus 0.1% ointment which was insurance preferred but she does not feel it works as well Dog bite - wound 3528714 05 T14.8XXA Pt reports recent dog bite on L wrist and R wrist from her new puppy, tooth punctured skinHas been treating with topical antibiotic ointment - not healingSta rt Augmentin as directed [id number] SANGITA NGUYEN [facility] [address] [place] [address] 07/11/2023 13:20:42 07/11/2023 14:29:02 History of squamous cell carcinoma of skin 282125626 Z85.828 L posterior leg s/p Mohs - No EOR, continue to monitorMos t recently, L calf s/p EDC 2021 - No EOR, continue to monitor History of malignant basal cell neoplasm of skin 504215429 Z85.828 L clavicle s/p EDC - No EOR, continue to monitor History of squamous cell carcinoma in situ 3193199368 9105 Z86.008 L shoulder s/p EDC - No EOR, continue to monitor Solar lentiginosis 85634 2007 L81.4 Benign reassuranc e Raised panchito orrheic keratosis 4429390706 71070 L82.1 Benign reassuranc e Hemangioma 162820977 D18 .00 Benign reassuranc e Multiple b enign melanocytic nevi 431964822 D22.9 Benign reassuranc e Pilar cyst of scalp 4011 66771 L72.11 Benign reassuranc e Actinic keratosis 409703 007 L57.0 Chronic w/ exacerbati on LN x 1 R anterior upper armPatient tolerated wellCryosu rgery handout providedSe e procedure note Mild actinic damage on nose - start fluorourac il 5% topical cream BID for 2-3 weeks - se/r/b discussed, handout providedWi ll not start this week, 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 Will treat sometime this Winter Patient ad vised about exposure to the sun 845687281 Z71.89 Counseled on sun protective clothing/h ats and daily UV protection with otc broad-spec trum SPF 30+ on exposed areas. Regular self-skin exams recommende d. Pt encouraged to RTC with any new/changi ng lesions. Neoplasm o f uncertain behavior of skin 39064825 D48.5 L lateral knee - R/O eczema vs AK vs superficia l NMSCPhoto taken today for future comparison Will treat with pimecrolim us 1% cream for 2-3 weeks if no improvemen t then treat with fluorourac il 5% topical cream when she treats her nose. If no reaction after 5FU cream then plan for biopsy. Dry skin dermatitis 2600 85941 L85.3 Start ammonium lactate 12% cream QDAdvised to try and stop scratching skin. Tap skin and use cool compresses [id number] SHOAIB CHAHUAN MD [place] [facility] [address] [place] [address] 09/02/2022 10:46:14 09/02/2022 12:14:11 Chronic recurrent sinusitis 672661521 J32.9 -2007 - Septoplast y, Left ESS [...] left maxillary sinus ostia Laryngopha ryngeal reflux 880813071 K21.9 - s/p Fundoplica tion procedure (Dr. Cesar) x 2-01/01/19 - fiberoptic laryngosco py - shows moderate LPR/aryten oiditis Obstructiv e sleep apnea syndrome 62453583 G47.33 -using CPAP nightly Vasomotor rhinitis 05811 03 J30.0 Sensorineu ral hearing loss of bilateral ears 016325067 H90.3 Thyroid nodule 188681599 E04.1 -09/02/22 - Lower right lobe 1cm nodule vs cyst - sl tender [id number] SONI MAYES PA-C [facility]OPEDI [facility] [address] [place] [address] 10/13/2022 12:42:48 10/13/2022 14:27:08 Pain of right elbow joint 9543483783 5672469 M25.521 Lateral ep icondylitis of right humerus 8978399896 50581 M77.11 [id number] BALA RAHMAN, PT PHYSICAL THERAPY / HAND THERAPY [facility] [address] [place] [address] 10/20/2022 12:01:53 10/21/2022 15:24:20 Pain of right shoulder joint 9087776247 8872623 M25.511 Tendinitis of right forearm 5333751611 3548474 M67.88 Atrophy of muscle of right shoulder 9437086781 77089 M62.511 [id number] BALA RAHMAN, PT PHYSICAL THERAPY / HAND THERAPY [facility] [address] [place] [address] 11/08/2022 09:14:47 11/11/2022 15:33:40 Pain of right shoulder joint 2080216442 6518426 M25.511 Lateral epicondylitis 20 7812730 M77.11 Abnormal posture 8339579 2 R29.3 Spasm 59203649 R25.2 [id number] MD [place] LENZ ENT [address] [place] [address] 12/09/2022 14:10:58 12/09/2022 15:51:05 Chronic recurrent sinusitis 175269748 J32.9 -2007 - Septoplast y, Left ESS [...] left maxillary sinus ostia Laryngopha ryngeal reflux 327327213 K21.9 - s/p Fundoplica tion procedure (Dr. Cesar) x 2-01/01/19 - fiberoptic laryngosco py - shows moderate LPR/aryten oiditis Thyroid nodule 491918067 E04.1 -09/02/22 - Lower right lobe 1cm nodule vs cyst - sl tenderUltr asound dos 09/08/22 from [facility]= no thyroid nodule or mass identified . Small right neck lymph nodes, nonspecifi c and likely reactive noted. Obstructiv e sleep apnea syndrome 29746159 G47.33 -using CPAP nightly Vasomotor rhinitis 76715 03 J30.0 Sensorineu ral hearing loss of bilateral ears 315736769 H90.3 Crusted nasal mucosa 277 846183 R09.89 12/09/22- left maxillary ostium [id number] BALA RAHMAN, PT PHYSICAL THERAPY / HAND THERAPY [facility] [address] [place] [address] 11/16/2022 11:55:02 11/18/2022 09:37:55 Pain of right shoulder joint 3455806732 5817034 M25.511 Lateral epicondylitis 20 7581391 M77.11 Abnormal posture 8408981 2 R29.3 [id number] GRAHAM DYKES MD [facility]THOPEDI [facility] [address] [place] [address] 11/24/2022 11:53:14 11/24/2022 12:17:31 Tendinitis of right rotator cuff 5639520210 5006173 M67.813 Possible rerupture, recommend MR arthrogram and follow-up with Dr. 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 No evidence of recurrence most recent heart monitor. continue with BB. Obstructiv e sleep apnea syndrome 56077520 G47.33 Not currently treating. Hypertensive disorder 38 551262 I10 Currently on losartan, currently at 50mg BID.Will add low dose HCTZ to regimen Near syncope 452247925 R 55 Ongoing history of near-synco pe. Cardiac workup has been unrevealin g. EKG today is normal.Hx of breast CA.Recomme nd brain MRI to r/o neurologic al abnormalit y. Dizziness 491653371 R42 Ongoing issues with dizziness. Her cardiac workup is normal. Carotid studies are normal.She does have chronic sinusitis issues follows with ENT, I have encouraged her to discuss these symptoms with him. [id number] PUSHPA LATHAM MD ORTHOPEDI CS [facility] [address] [place] [address] 12/27/2022 09:21:09 12/27/2022 11:39:44 Pain of right shoulder joint 9480684488 1749150 M25.511 [id number] LOUISE ROSS PA-C [facility] [address] [place] [address] 01/06/2023 09:35:45 01/06/2023 10:36:20 History of squamous cell carcinoma of skin 736987602 Z85.828 L posterior leg s/p Mohs - No EOR, continue to monitorMos t recently, L calf s/p EDC 2021 - No EOR, continue to monitor Patient ad vised about exposure to the sun 214105512 Z71.89 Counseled on sun protective clothing/h ats and daily UV protection with otc broad-spec trum SPF 30+ on exposed areas. Regular self-skin exams recommende d. Pt encouraged to RTC with any new/changi ng lesions. History of malignant basal cell neoplasm of skin 371852512 Z85.828 L clavicle s/p EDC - No EOR, continue to monitor History of squamous cell carcinoma in situ 3325569598 9105 Z86.008 L shoulder s/p EDC - No EOR, continue to monitor Solar lentiginosis 73262 2006 L81.4 Benign reassuranc e Raised panchito orrheic keratosis 9215208417 89907 L82.1 Benign reassuranc e Hemangioma 900182110 D18 .00 Benign reassuranc e Multiple b enign melanocytic nevi 012684108 D22.9 Benign reassuranc e Pilar cyst of scalp 4011 77061 L72.11 Benign reassuranc e Actinic keratosis 998323 007 L57.0 Educated patient on pre-malign ant dxTreated today with LN x 2See procedure notePatien t tolerated wellAfter care instructio ns were given mild actinic damage on nose patient bothered by texture plan to use 5FU cream on nose in the Fall/Winte r [id number] ANUEL YEUNG MD ORTHOPEDI CS [facility] [address] [place] [address] 01/31/2023 09:08:00 01/31/2023 09:58:32 Sprain of left ankle 0966289700 3166696 S93.402A ATFL sprain, no sign of fracture.n on-op tx, RICE, wbat, PT referal provided for 1-2 visit for edema/swel ling control, ankle rom, prop training. Idiopathic peripheral neuropathy 30792626 G60.9 rec continue/c omplete evaluation by her PCP/outsid e explosive specialist care with [facility]. max 15 min [id number] VENKATA MORRIS APRN CARDIOLOG Y [address] [place] [address] 02/02/2023 13:40:52 02/03/2023 04:51:37 Dizziness 090186151 R42 Ongoing issues with dizziness. Her cardiac workup is normal. Carotid studies are normal. Brain MRI with no acute findings, chronic sinusitis noted.She does have chronic sinusitis issues follows with ENT, I have encouraged her to discuss these symptoms with ENT for their opinion as well. Supraventr icular tachycardia 4860202 I47.1 Stable. No evidence of recurrence most recent heart monitor. continue with BB. Obstructiv e sleep apnea syndrome 27330972 G47.33 Not currently treating. Working with pulmonary to restart treatment. Hypertensive disorder 38 243517 I10 Currently on losartan, currently at 50mg BID, HCTZ 12.5mg daily.Pres sures are stable. Type 2 dereje betes mellitus 01930610 E11.9 PCP monitoring . Chest pain 53498233 R07. 9 Normal stress test in October, still with ongoing CP.More frequent in nature. Pain is non-exerti onal, but still concerning .CCTA will be obtained to further assess coronary anatomy. ischemia workup was normal.Fol low up in 4 months Dyspnea on exertion 6084 5006 R06.09 She will discuss dyspnea with pulmonary [id number] YURY OROZCO APRN [place] [facility] [address] [place] [address] 02/11/2023 08:35:16 02/11/2023 11:28:51 Chronic recurrent sinusitis 683366724 J32.9 -2007 - Septoplast y, Left ESS [...] left maxillary sinus ostia Laryngopha ryngeal reflux 982758397 K21.9 - s/p Fundoplica tion procedure (Dr. Cesar) x 2-01/01/19 - fiberoptic laryngosco py - shows moderate LPR/aryten oiditis Thyroid nodule 627455034 E04.1 -09/02/22 - Lower right lobe 1cm nodule vs cyst - sl tenderUltr asound dos 09/08/22 from [facility]= no thyroid nodule or mass identified . Small right neck lymph nodes, nonspecifi c and likely reactive noted. Obstructiv e sleep apnea syndrome 65373744 G47.33 -using CPAP nightly Vasomotor rhinitis 72896 03 J30.0 Sensorineu ral hearing loss of bilateral ears 966676580 H90.3 - Audio 02/11/23: stable compared to 2019 Postural dizziness 38393 7008 R42 - suspect cardiac component or orthostati c hypotensio n- 02/11/23: ears clear, Salisbury-Hallpi kes negative, hearing loss symmetric, tympanomet ry WNL Orthostati c hypotension 98388781 I95.1 Impacted c erumen in right ear 1131405804 026893 H61.21 [id number] TAMIR PALMA , [facility] ENT [address] [place] [address] 02/11/2023 09:39:36 02/11/2023 12:20:06 Sensorineural hearing loss of bilateral ears 300496949 H90.3 Bilateral tinnitus 71574 17081 102 H93.13 [id number] VALARIE MEYERS PA-C PULMONARY [address] [facility], [place] [address] 02/23/2023 09:36:10 02/23/2023 10:07:33 Obstructive sleep apnea of adult 8428406342 103 G47.33 home sleep study discussed in detail. This no longer shows NHI. Patient will discontinu e CPAP. Insomnia 279196219 G47.0 0 Continue Rozerem as needed. [id number] VALARIE MEYERS PA-C PULMONARY [address], [address] [place], [place] [address] 04/19/2023 08:53:21 04/20/2023 07:57:55 Dyspnea on exertion 85696207 R06.09 Chest x-ray is normal today. PFTs are normal. No obstructio n noted. She reports having recent labs with no anemia. I did request a copy of her stress test and echo that was performed at [facility]. Obstructiv e sleep apnea syndrome 35157512 G47.33 Eliminated with weight loss.. [id number] GRAHAM DYKES MD ORTHOPEDI CS [facility] [address] [place] [address] 04/20/2023 15:39:49 04/20/2023 16:12:40 Bilateral carpal tunnel syndrome 8961699122 6365985 G56.03 Left is somewhat progressiv e the right just started tingling in the past day or 2. Recommende d wrist splints, recommende d hand therapy, she will follow-up if she does not get relief we will do a diagnostic carpal tunnel injection to see if it is from carpal tunnel syndrome or her sensorimot or polyneurop athy. [id number] VENKATA MORRIS APRN CARDIOLOG Y [address] [place] [address] 07/06/2023 12:46:21 07/11/2023 04:15:36 Dizziness 916163604 R42 Recheck CBC. Patient notes her daughter just had abnormal CBC. Supraventr icular tachycardia 2940882 I47.10 Stable. No evidence of recurrence most recent heart monitor. continue with BB. Obstructiv e sleep apnea syndrome 56962435 G47.33 Not currently treating. Working with pulmonary to restart treatment. Hypertensive disorder 38 351977 I10 Currently on losartan, currently at 50mg BID, HCTZ 12.5mg daily.Pres sures are stable. Type 2 dereje betes mellitus 15824088 E11.9 PCP monitoring . Coronary arteriosclerosis 67555594 I25.10 Normal stress test in October, CP now resolved. CCTA done at [facility] gat ston score = 161Left [...] value of 0.92. Keep annual follow up. [id number] LOUISE ROSS PA-C [facility] [address] [place] [address] 01/30/2024 14:55:41 01/30/2024 15:57:27 History of squamous cell carcinoma of skin 952345818 Z85.828 L posterior leg s/p Mohs - No EOR, continue to monitorMos t recently, L calf s/p EDC 2021 - No EOR, continue to monitor History of malignant basal cell neoplasm of skin 506219073 Z85.828 L clavicle s/p EDC - No EOR, continue to monitor History of squamous cell carcinoma in situ 6843651694 9105 Z86.008 L shoulder s/p EDC - No EOR, continue to monitor Solar lentiginosis 50924 2006 L81.4 Benign reassuranc e Raised panchito orrheic keratosis 4801851328 23489 L82.1 Benign reassuranc e Hemangioma 097863521 D18 .00 Benign reassuranc e Multiple b enign melanocytic nevi 524221013 D22.9 Benign reassuranc e Pilar cyst of scalp 4011 74360 L72.11 Benign reassuranc eShe states they have [...] is smooth today. Dry skin dermatitis 2600 45490 L85.3 Continue ammonium lactate 12% cream QD. Does not require refills at this time. Patient ad vised about exposure to the sun 961097232 Z71.89 Counseled on sun protective clothing/h ats and daily UV protection with otc broad-spec trum SPF 30+ on exposed areas. Regular self-skin exams recommende d. Pt encouraged to RTC with any new/changi ng lesions. Family his tory of malignant melanoma 338481000 Z80.7 Sister [id number] PUSHPA LATHAM MD ORTHOPEDI CS [facility] [address] [place] [address] 07/14/2023 10:21:30 07/14/2023 11:59:40 Pain of right shoulder joint 6173294918 9252082 M25.511 Biceps tendinitis 964600 007 M75.21 [id number] MD SULEIMAN LENZ ENT [address] [place] [address] 09/08/2023 13:02:33 09/08/2023 15:20:11 Chronic recurrent sinusitis 887225287 J32.9 -2007 - Septoplast y, Left ESS [...] left maxillary sinus ostia Laryngopha ryngeal reflux 396188144 K21.9 -2008 - s/p Sierra Fundoplica tion [...] of arytenoidi tis from LPR Thyroid nodule 874718115 E04.1 -09/02/22 - Lower right lobe sl tender- 09/08/22 Thyroid US [facility]= no thyroid nodule or mass identified . Small right neck lymph nodes, nonspecifi c and likely reactive noted. Obstructiv e sleep apnea syndrome 56877361 G47.33 -using CPAP nightly Vasomotor rhinitis 09114 03 J30.0 Sensorineu ral hearing loss of bilateral ears 300157767 H90.3 Neck pain 51528951 M54.2 -09/08/22 -Thyroid ultrasound at [facility] no thyroid nodules or masses identified -04/2023 - Onset of intermitte nt right lower neck pain- - Neck ultrasound years to [facility] unremarkab le appearance in the designated painful area; [...] the result of arytenoidi tis from LPR [id number] NEIL LANG PA-C ORTHOPEDI CS [facility] [address] [place] , [place] [address] 09/20/2023 14:45:47 09/20/2023 15:59:33 Osteoarthritis of right knee joint 6801498335 95884 M17.11 ASSESSMENT : DJD RIGHT knee PLAN: [...] is for viscosuppl ementation Follow up prn [id number] FERNANDA CHRISTIAN APRN GASTRO [place] [address], [address] [place] [address] 10/06/2023 11:19:51 10/06/2023 12:13:18 Gastroesophageal reflux disease without esophagitis 130141187 K21.9 Trial of famotidine , can use 1-2 times per day.Discus sed dietary triggers, elevating HOB, no eating within 2 hours of laying down.Follo w up 2-3 weeks after EGD, colonoscop y. Feeling of lump in throat 588495082 R09.89 Upper endoscopy, colonoscop y recommende d. History of Sierra fundoplica tion. Swallowing painful 64491 002 R13.19 Altered yusuf wel function 09348777 R19.4 [id number] YURY ABRAHAM MD SURGERY SCHEDULE [address] [place] [address] 10/18/2023 13:18:08 10/18/2023 13:18:59 [id number] LU WRIGHT MD GENERAL SURGERY [address] [place] [address] 11/08/2023 09:55:14 11/10/2023 13:54:55 Polyp of cecum 041851759 D12.0 73-year-ol d female seen for evaluation [...] bowel prep and to be done at [facility] with pass evaluation . [id number] LU WRIGHT MD GENERAL SURGERY [address] [place] [address] 12/08/2023 10:16:09 12/09/2023 05:01:26 Polyp of cecum 416537824 D12.0 73-year-ol d female seen for evaluation [...] bowel prep and to be done at [facility] with pass evaluation .12/07-Stat us post laparoscop ic appendecto my for appendicea l orifice polyp. Noted tubular adenoma on path. Negative margins. Healing well tolerating diet and pain controlled . Discussed ongoing lifting precaution s. Repeat colonoscop y per GI as planned. [id number] LOUISE ROSS PA-C D[facility]MATOLO [facility] [address] [place] [address] 08/01/2024 14:41:06 08/01/2024 15:31:06 History of squamous cell carcinoma of skin 894642559 Z85.828 L posterior leg s/p Mohs - No EOR, continue to monitorMos t recently, L calf s/p EDC 2021 - No EOR, continue to monitor History of malignant basal cell neoplasm of skin 353884816 Z85.828 L clavicle s/p EDC - No EOR, continue to monitor History of squamous cell carcinoma in situ 3200998132 9105 Z86.008 L shoulder s/p EDC - No EOR, continue to monitor Solar lentiginosis 73169 2006 L81.4 Benign reassuranc e Raised panchito orrheic keratosis 0675533265 70657 L82.1 Benign reassuranc e Hemangioma 246983391 D18 .00 Benign reassuranc e Multiple b enign melanocytic nevi 553420417 D22.9 Benign reassuranc e Pilar cyst of scalp 4011 22593 L72.11 Benign reassuranc eShe states they have grown but she does not want to have them excised at this time. 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 Regular self-skin exams recommende d. Pt encouraged to RTC with any new/changi ng lesions. 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 Discussed getting a silk pillow case vs alternatin g sides of head she sleeps on or purchase [facility] cut out pillow Neoplasm o f uncertain behavior of skin 84376670 D48.5 R lateral lower leg - r/o lichenoid keratosis vs BCC Shave bx taken todaySee procedure notePhoto taken, consent signedWoun d care instructio ns providedf/ up per path History of actinic keratosis 3977866189 104 Z87.2 Previously treated with cryotherap y and 5FU topical cream [id number] MD SULEIMAN LENZ ENT [address] [place] [address] 02/09/2024 08:46:43 02/15/2024 16:13:50 Neck pain 62055827 M54.2 -09/08/22 -Thyroid ultrasound at [facility] no thyroid nodules or masses identified -04/2023 - Onset of intermitte nt right lower neck pain- - Neck ultrasound years to [facility] le appearance in the designated painful area; [...] - no complaints of Laryngopha ryngeal reflux 304512744 K21.9 -2008 - s/p [employer] tion [...] return to singing. Chronic re current sinusitis 351816066 J32.9 -2007 - Septoplast y, Left ESS [...] healthy. Rx- Gentamycin irrigate BID Thyroid nodule 466203955 E04.1 -09/02/22 - Lower right lobe sl tender- 09/08/22 Thyroid US [facility]= no thyroid nodule or mass identified . Small right neck lymph nodes, nonspecifi c and likely reactive noted. Obstructiv e sleep apnea syndrome 42003746 G47.33 -using CPAP nightly Vasomotor rhinitis 26133 03 J30.0 Sensorineu ral hearing loss of bilateral ears 088963947 H90.3 Jesus's esophagus 3029 69464 K22.70 02/09/24- managed with Dr. Abraham [id number] NEIL LANG PA-C ORTHOPEDI [facility] [address] [place] [address] 06/05/2024 10:56:47 06/05/2024 11:33:30 Osteoarthritis of right knee joint 7436482455 68009 M17.11 ASSESSMENT : DJD RIGHT knee PLAN:We [...] is for viscosuppl ementation Follow up prn [id number] VENKATA MORRIS APRN CARDIOLOG Y [address] [place] [address] 07/06/2024 10:43:31 07/06/2024 14:32:12 Coronary arteriosclerosis 54198065 I25.10 CCTA done at [facility] gat ston score = 161Left [...] be noted on stress Supraventr icular tachycardia 8525252 I47.10 Stable. No evidence of recurrence most recent heart monitor. continue with BB. Obstructiv e sleep apnea syndrome 86146191 G47.33 Not currently treating Hypertensive disorder 38 370549 I10 Stable.Low sodium diet. Type 2 dereje betes mellitus 51245545 E11.9 PCP monitoring . Hyperlipidemia 04119139 E78.5 Notes she cannot take statin, notes it caused peripheral neuropathy Will obtain labs from PCP office. Discussed importance of tight control of lipids d/t Hx of CADLDL goal < 55, consider PSCK9-I Chest pain 02636283 R07. 9 Reported todayHx of non-obs CAD as noted aboveIsche tristen workup pending, see above plan [id number] YURY MORELAND MD [facility] [address] [place] [address] 08/09/2024 12:11:01 08/10/2024 10:41:56 [id number] LAUREN GRIFFIN MD [place] ENT [address] [place] [address] 11/27/2024 14:39:55 11/27/2024 16:11:08 Chronic recurrent sinusitis 584055606 J32.9 -2007 - Septoplast y, Left ESS [...] obtained today in office Laryngopha ryngeal reflux 046763344 K21.9 -2008 - s/p [employer] tion [...] may return to singing. Jesus's esophagus 3029 55139 K22.70 02/09/24- managed with Dr. Abraham Neck pain 60723442 M54.2 -09/08/22 -Thyroid ultrasound at [facility] no thyroid nodules or masses identified -04/2023 - Onset of intermitte nt right lower neck pain- - Neck ultrasound years to [facility] appearance in the designated painful area; [...] LPR02/09/24 - no complaints of Thyroid nodule 886961820 E04.1 -09/02/22 - Lower right lobe sl tender- 09/08/22 Thyroid US [facility]= no thyroid nodule or mass identified . Small right neck lymph nodes, nonspecifi c and likely reactive noted. Obstructiv e sleep apnea syndrome 94621521 G47.33 -using CPAP nightly Vasomotor rhinitis 49673 03 J30.0 Sensorineu ral hearing loss of bilateral ears 745881887 H90.3 Absence of bilateral tonsils 807490461 Z90.09 [id number] NEIL LANG PA-C ORTHOPEDI [facility] [address] [place] [address] 12/11/2024 15:15:15 12/11/2024 16:15:18 Pain in left sacroiliac joint 1090801549 2264284 M53.3 Assessment : SI joint dysfunctio n Plan: Start with formal PT, topical gels/cream s such as CBD creams, can't take NSAIDs due to GI/ulcer history, she is interested in getting SI joint injections , referral faxed to our ceramic painter Dr. Alcala who can provide these. Additional ly, recommende d Dr. Baez with [facility] for her fibromyalg ia.Gave home exercises to work on in the meantime as well.We did look at her hips and physical exam remains benign, although moderate hip DJD. Follow up as needed. [id number] MD SULEIMAN HARTLEY ENT [address] [place] [address] 12/28/2024 13:38:24 12/28/2024 14:08:30 Chronic recurrent sinusitis 233500684 J32.9 -2007 - Septoplast y, Left ESS [...] obtained today in office Laryngopha ryngeal reflux 084776531 K21.9 -2008 - s/p [employer] tion [...] may return to singing. Jesus's esophagus 3029 37362 K22.70 02/09/24- managed with Dr. Abraham Neck pain 08531654 M54.2 -09/08/22 -Thyroid ultrasound at [facility] no thyroid nodules or masses identified -04/2023 - Onset of intermitte nt right lower neck pain- - Neck ultrasound years to [facility] appearance in the designated painful area; [...] LPR02/09/24 - no complaints of Thyroid nodule 079499569 E04.1 -09/02/22 - Lower right lobe sl tender- 09/08/22 Thyroid US [facility]= no thyroid nodule or mass identified . Small right neck lymph nodes, nonspecifi c and likely reactive noted. Obstructiv e sleep apnea syndrome 87117507 G47.33 -using CPAP nightly Vasomotor rhinitis 36166 03 J30.0 Sensorineu ral hearing loss of bilateral ears 328475529 H90.3 Absence of bilateral tonsils 813750120 Z90.09 [id number] VENKATA MORRIS, FRANDY CARDIOLOG Y [address] [place] [address] 01/25/2025 12:36:16 01/25/2025 13:52:07 Coronary arteriosclerosis 96179607 I25.10 CCTA done at [facility] gat ston score = 161Left [...] mo for ongoing management Supraventr icular tachycardia 7814643 I47.10 Stable. No evidence of recurrence most recent heart monitor. continue with BB. Obstructiv e sleep apnea syndrome 92953243 G47.33 Not currently treating Hypertensive disorder 38 011573 I10 Stable.Low sodium diet. Type 2 dereje betes mellitus 14192590 E11.9 PCP monitoring . Hyperlipidemia 74195524 E78.5 Notes she cannot take statin, notes it caused peripheral neuropathy Discussed importance of tight control of lipids d/t Hx of CADLDL goal < 55, consider PSCK9-I if not attained given her history of non-obs CADPrimary care monitoring [id number] LOUISE ROSS PA-C [facility] [address] [place] [address] 01/30/2025 14:03:50 01/30/2025 16:47:15 History of squamous cell carcinoma of skin 306194858 Z85.828 L posterior leg s/p MohsL calf s/p EDC 2021 No EOR, will continue to monitor History of malignant basal cell neoplasm of skin 240128961 Z85.828 L clavicle s/p EDC - No EOR, continue to monitor History of squamous cell carcinoma in situ 8474825667 9105 Z86.008 L shoulder s/p EDC - No EOR, continue to monitor History of actinic keratosis 5907747948 104 Z87.2 Previously treated with cryotherap y and 5FU topical cream Solar lentiginosis 08380 2006 L81.4 Benign reassuranc e Raised panchito orrheic keratosis 5397954209 51948 L82.1 Benign reassuranc e Hemangioma 723251694 D18 .00 Benign reassuranc e Multiple b enign melanocytic nevi 814638085 D22.9 Benign reassuranc e Pilar cyst of scalp 4011 05171 L72.11 Benign reassuranc eShe states they have grown but she does not want to have them excised at this time. 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 Regular self-skin exams recommende d. Pt encouraged to RTC with any new/changi ng lesions. 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 left proximal lateral upper arm r/o SCC - ED&C todayb. 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 229219404 C44.629 left proximal lateral upper armClinica l [...] Name 02/13/2020 1 [place] [id number] Umesh Renteria Manny [id number] Candace P Manny 05/24/2019 2 [place] [id number] Umesh Renteria Manny [id number] Candace P Manny 04/19/2023 INGENIOUSMED (MOVED TO HOLD) Candace P Manny Candace P Manny 03/03/2025 [employer] ADMIN[employer]RAT[employer] - DMEPOS ASSIGNED (MEDICARE DME REGION B) Candace P Manny [id number] Candace P Manny 03/03/2025 1 [place] Candace P Manny [id number] Candace P Manny 03/03/2025 2 AARP (MEDICARE SUPPLEMENT) Candace P Manny [id number] Candace P Manny Notes Date Note Type [...] well. She did receive a d/x of jesus's esophagus in the past year. 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 LAUREN GRIFFIN MD [address] [place] [address], [phone], [facility] 11/27/2024 15:24:26 5 text/html 12/11/24History of painful [...] on this hip n NEIL LANG PA-C [address] [place] [address], [phone], [facility] 12/11/2024 16:18:18 5 text/html Melody visits us in office today to follow up on chronic sinusitis. Pt has continued to have nasal congestion and discolored drainage from the nose. Culture from 11/27/24 was consistent with Staphylococcus aureus. LAUREN GRIFFIN MD [address] [place] [address], [phone], [facility] 12/28/2024 14:12:21 5 text/html Ms. Bryant is [...] normal LV function. Had repeat carotid at [facility] which showed < 50% bilat ICA stenosis. Brain MRI 12/2022 was normal. 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 CCTA done at [facility] gatston score = 161Left Main: [...] she had complaint of CP.She underwent Lexiscan 08/09/20248884Jtamgxigfz4. Normal myocardial perfusion at rest and stress.2. [...] Did not require surgical intervention. VENKATA MORRIS, JACK SPOOLER TENDER [address] [place], [address], [facility] 01/25/2025 15:30:22 5 text/html Established patient Patient [...] of melanoma (sister). LOUISE ROSS PA-C [address] [place], [address], [facility] 02/03/2025 19:46:23 OBGyn Episode No OBEpisode recorded.
[2025-03-11 15:31] LABS: Hematocrit 41.9 % (37.0-47.0); Hemoglobin 14.1 g/dL (12.2-16.2); Immature Granulocytes % 0.4 %; Mean Corpuscular HGB Conc 33.7 g/dL (31.8-35.4); Mean Corpuscular Hemoglobin 30.3 pg (27.0-31.2); Mean Corpuscular Volume 89.9 fl (81-99); Nucleated Red Blood Cells % 0 %; Platelet Count 289 K/mm3 (142-424); Red Blood Count 4.66 M/mm3 (4.20-5.40); Red Cell Distribution Width-SD 41.4 fL; White Blood Count 8.2 K/mm3 (4.8-10.8)
[2025-03-11 16:00] LABS: Alanine Aminotransferase 27 U/L (12-78); Albumin Level 4.3 g/dl (3.5-5.0); Albumin/Globulin Ratio 1.7 (1.1-1.8); Alkaline Phosphatase 66 U/L (38-126); Anion Gap 18.9 mEq/L (5-15); Aspartate Amino Transferase 32 U/L (14-36); Bilirubin,Total 0.8 mg/dl (0.2-1.3); Blood Urea Nitrogen 9 mg/dl (7-17); Calcium 9.8 mg/dl (8.4-10.2); Carbon Dioxide 29 mmol/L (22.0-30.0); Chloride 98 mmol/L (98-107); Creatinine,Serum 0.80 mg/dl (0.52-1.04); Estimated Glomerular Filt Rate 70 ml/min (>60); GFR (African American) 84 ML/MIN (>60); Globulin 2.6 g/dL (1.3-3.2); Glucose 112 mg/dl (74-100); Lipase 93 U/L (23-300); Magnesium 2.0 mg/dl (1.6-2.3); Potassium 3.9 mmoL/L (3.5-5.1); Sodium 142 mmol/L (136-145); Total Protein,Serum 6.9 g/dl (6.3-8.2)
[2025-03-11 16:14] LABS: Free T4 (Free Thyroxine) 1.19 ng/dl (0.78-2.19)
[2025-03-11 16:31] LABS: Thyroid Stimulating Hormone 1.18 uIU/mL (0.465-4.68)
== END 2025-03-11 23:59 | disposition home or self-care (01) ==
LOC: LAB 14:08
PROVIDERS: PCP Internal Medicine Adolescent Medicine; Visit Provider Physician Assistant
DX: R19.7 Diarrhea, unspecified (principal); M62.838 Other muscle spasm; R10.13 Epigastric pain; M79.7 Fibromyalgia; R53.83 Other fatigue
CPT/HCPCS: 36415; 80053; 83690; 83735; 84439; 84443; 85025

== ENCOUNTER 2025-03-12 09:31 | Outpatient (CLI) | payer MEDICARE, SELFPAY ==
--- OUTSIDE RECORDS SUMMARY | 2025-02-01 07:00 | XMS_ITS ---
Author Organization [facility] [place] Address [address] [place] [address] Care Team Providers Care Dough Mixing Machine Operator Name Role Phone Estefany Chou Unavailable [phone] Allergies Allergen (clinical drug ingredient) Drug/Non Drug [...] 02/01/2025 Encounters Encounter Location Date Provider Diagnosis [facility]- [address] [address] 02/01/2025 Estefany Chou Encounter for gynecological examination [...] F/U Provider Name:Estefany Chou, 05/29/2025 11:00:00 AM, [facility] [address], [address], [address], Provider Name:Estefany Chou, 02/03/2026 10:15:00 AM, [address], [place], [address], History and Physical Notes * [...] skin changes, no axillary or supraclavicular adenopathy Customer Support Manager Customer Support Manager Status Customer Support Manager prese nt during physical exam. Name: Kirstie López Title: PHARMACY RETAIL SUPPORT SPECIALIST Progress Notes * Candace BRYANT PDOB:[birth year] (74 yo F)Acc No.[id number]:02/01/2025 Progress Note Patient: Candace VERA Provider: Duane Chou MD :1950 A ge:74 Y S ex:Female Date:02/01/2025 Address:[address] [place] [address], [place], [id number] Subjective: * Chief Complaints: * 1 . [...] d enies. ? 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 * Examination: C haperone: Customer Support Manager Status C haperone present during physical exam. Name: Kirstie López Title: PHARMACY RETAIL SUPPORT SPECIALIST. G eneral Examination: GENERAL APPEARANCE: p leasant, [...] Date: 02/01/2025 Generated for Nayan urbina/Octavio/Bryanitting on: 03/12/2025 09:34 AM EDT
--- OUTSIDE RECORDS SUMMARY | 2025-02-18 06:00 | XMS_ITS ---
Author Organization [facility] Address [address] [place] [address] Care Team Providers Care Custodian Name Role Phone Estefany Chou Unavailable [phone] Allergies Allergen (clinical drug ingredient) Drug/Non Drug [...] Vancomycin HCl rash Drug Allergy A ctive Reason For Referral Reason Dx BIlateral MMG- U/ S if needed right breast pain at the right lateral edge breast pain 9-10:00 and right inner axilla pain Diagnosis 1 Breast pain (N64.4) Referral Organization [facility]-NR Referring Provider First Name Estefany Referring Provider Last Name José Antonio Referring Provider Speciality OB - Gynec ology Referral Priority Routine Referral Appointment Date 02/27/2025 REASON FOR VISIT f/u breast exam Medications Medication SIG (Take, Route, Frequency, Duration) Notes Start Date End Date Status Anastrozole 1 MG Tablet 1 tablet Orally Once a day Not-Taking/PRN Toujeo SoloStar Not- Taking/PRN Trulicity Active Vitamin B12 Active Vitamin D Active Inderal LA 80 MG Capsule Extended Release 24 Hour 1 capsule Orally Once a day Active Losartan Potassium 50 MG Tablet 1 tablet Orally Once a day Active MiraLax Active Nortriptyline HCl Ac tive Relpax Active RABEprazole Sodium A ctive Basaglar KwikPen Act ameena Citrucel Active Folic Acid Active 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 Tobacco Use: 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 Observation [...] a nonsmoker Vital Signs Blood pressure systolic 122 mm Hg 02/19/20 25 Blood pressure diastolic 64 mm Hg 025 Height 67 in 02/18/2025 Weight 166 lbs 02/18/2025 BMI 26 kg/m2 02/18/2025 Encounters Encounter Location Date Provider Diagnosis [facility] [address] [place] [address] 02/18/2025 Estefany José Antonio Breast pain N64.4 ; Pain in right axilla M79.621 and Personal history of breast cancer Z85.3 Assessments Encounter Date Diagnosis (ICD Code) Assessment Notes Treatment Notes Treatment Clinical Notes Section Notes 02/18/2025 Breast pain (ICD-10 - N64.4) 02/18/2025 Pain in right axilla (ICD-10 - M79.621) 02/18/2025 Personal history of breast cancer (ICD-10 - Z85.3) Plan Of Treatment Referrals Referral Date Details 02/18/2025 02/18/2025, Dx BIlat eral MMG- U/S if needed right breast pain at the right lateral edge breast pain 9-10:00 and right inner axilla pain Next Appt Details Follow Up: 1 Year,prn, Reaso n: Annual Provider Name:Estefany Chou, 05/29/2025 11:00:00 AM, [address], [place], [address], Provider Name:Estefany José Antonio, 02/03/2026 10:15:00 AM, [address], [place], [address], History and Physical Notes * HPI (History of Present Illness) Category Sub-Category Detail Notes Category Not es General Health Maintenance Returns for f/u righ t breast and axillary tenderness with history of right breast cancer s/p lumpectomy with postop radiation 2016. She is now s/p breast biopsy of right superior lateral breast with path FCC and fat necrosis with no atypia and is s/p 3 previous biopsies of the right breast in the lower, central and 12:00 positions all with fat necrosis path. Screening mammogram BI-RADS 2, and high risk breast MRI , BI-RADS 2. She is complaining of 31/2 weeks of right axillary to right breast pain. She has not palpated a mass. She is scheduled for mammogram screening , and plans 6 month interval high risk MRI. Examination Category Sub-Category Detail Notes Category Not es Gynecological BREASTS: Dense right sixto st s/p right inferior areolar lumpectomy with persistent tenderness along the outermost edge of breast between 9-10:00 and inner right axillary area, no palpable masses, nipple intact with no discharge, no skin changes Consultation Request Notes Referral Date Referring Provider Referred Provider Not es 02/18/2025 Estefany Chou , Dx BIlateral M MG- U/S if needed right breast pain at the right lateral edge breast pain 9-10:00 and right inner axilla pain Progress Notes * Candace BRYANT PDOB:[birth year] (74 yo F)Acc No.[id number]:02/18/2025 Progress Note Patient: Asia riddleCandace dickson Provider: Duane Chou MD :1950 A ge:74 Y S ex:Female Date:02/18/2025 Address:[address] [place] [address] [id number] Subjective: * Chief Complaints: * 1 . F/u breast exam. * HPI: G eneral Health Maintenance: Returns for f/u right breast and axillary tenderness with history of right breast cancer s/p lumpectomy with postop radiation 2016. She is now s/p breast biopsy of right superior lateral breast with path FCC and fat necrosis with no atypia 2022 and is s/p 3 previous biopsies of the right breast in the lower, central and 12:00 positions all with fat necrosis path. Screening mammogram BI-RADS 2, and high risk breast MRI , BI-RADS 2. She is complaining of 31/2 weeks of right axillary to right breast pain. She has not palpated a mass. She is scheduled for mammogram screening , and plans 6 month interval high risk MRI. 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: D ate of Last Pap/HPV: 0 L ast Pap/HPV Results: N ormal Pap M ammogram History: D ate of last mammogram: 0 R esults/Density B IRADS 2 M enstrual [...] I nterpretation N egative * Medications: T aking Basaglar KwikPen , Taking Citrucel , Taking Folic Acid [...] Once a day , Not-Taking/PRN Toujeo SoloStar * Allergies: C ODEINE PHOSPHATE (CODEINE PHOSPHATE SOLN): rash - Allergy - Onset Date 2013-05-14, NEURONTIN: rash - Allergy - Onset Date 2013-05-14, SULFAMETHOXAZOLE- TRIMETHOPRIM: Anaphylaxis - Allergy - Onset Date 2013-05-14, Vancomycin HCl: rash, Aleve, Augmentin: abdominal pain - Side Effects, novacaine: rash - Allergy. Allergies Verified. Objective: * Vitals: B P:122/64mm Hg, Ht: 67 in, Wt: 166 lbs, BMI:26Index. * Examination: G ynecological: BREASTS: D ense right breast s/p right inferior areolar lumpectomy with persistent tenderness along the outermost edge of breast between 9-10:00 and inner right axillary area, no palpable masses, nipple intact with no discharge, no skin changes. ? Assessment: * Assessment: 1. B reast pain - N64.4 (Primary) 2 . P ain in right axilla - M79.621 ? 3 . P ersonal history of breast cancer - Z85.3 Plan: * Treatment: * Follow Up: 1 Year,prn (Reason: Annual) Billing Information: * Visit Code: 64479 Office/Outpatient visit, est patient. * Sign off status: Completed Visit Status: C HK (Check Out) true * Provider: Duane Chou MD Date: 0 02/18/2025 Generated for Nayan urbina/Octavio/Bryanitting on: 0 03/12/2025 09:34 AM EDT
--- OUTSIDE RECORDS SUMMARY | 2025-03-05 13:45 | XMS_ITS | Encounter Summary ---
Author Organization [employer] ([place], [place], [place], [place]) Address [address] [place] [address] Care Team Providers Care Drafter Civil Name Role Phone Unavailable Primary Care Provider Unavailabl e Reason for Referral * Consultation (Routine) - Authorized Specialty Diagnoses / Procedures Referred By Helen sellers Referred To Contact Behavioral Health Diagnoses Memory loss Ke Campbell MD [address] [place], [place] [address] [address] [place] [address] Phone: tel: fax: Test, [facility]mp Amb Provider-Non Md, PhD Referral ID Status Reason Start Date Expiration Date Visits Requested Visits Authorized [id number] Authorized Specialty Services Required 03/05/2025 03/05/2026 1 1 Scheduling Instructions Please refer to Fernanda Briones or Zayda Mcgee for formal neuropsychology evaluation due to concern for memory deficits * MRI (Routine) - Authorized Specialty Diagnoses / Procedures Referred By Helen t Referred To Contact Radiology Diagnoses Memory loss Procedures MR Brain Without IV Contrast Ke Campbell MD [address] [place] [address] [address] [place] [address] Phone: tel: fax: [facility] [address] [facility] [address] [place] [address] Phone: tel: fax: Referral ID Status Reason Start Date Expiration Date V isits Requested Visits Authorized [id number] Authorized 03/05/2025 03/05/2026 1 1 Reason for Visit * Reason Comments Establish Care * Consultation (Routine) - Closed Specialty Diagnoses / Procedures Referred By Contac t Referred To Contact Neurology Diagnoses Memory loss Graham Jose MD [address] [place] [address] Phone: tel: fax: Ke Campbell MD [facility] [employer] [address] [place] [address] Phone: tel: fax: Referral ID Status Reason Start Date Expiration Date V isits Requested Visits Authorized [id number] Closed Specialty Services Required 02/05/2025 02/05/2026 1 1 Encounter Details Date Type Department Care Team (Late st Contact Info) Description 03/05/2025 1:45 PM EDT Office Visit [facility] Neurology - [address] [place] [address] Ke Campbell MD [address] [place] [address] Drive [address] [place] [id number] Memory loss (Primary Dx) 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 Tobacco [...] Date Clifford rded Speak language other than Amharic at home Not on file 11/08/2023 Want [...] spent reviewing previous medical records, time spent kpxb-gu-[id number] with patient, counseling/education, putting in orders and electronic documentation. documented in this encounter Plan of Treatment Upcoming Encounters Date Type Department Care Team (Late st Contact Info) Description 03/25/2025 8:00 AM EDT Appointment [facility] [address] [facility] [address] [place] [address] Ke Campbell MD [address] [place] [address] [address] [place] [address] 04/02/2025 11:45 AM EDT Office Visit [facility] Neurology - [facility] [address] [facility] [address] [place] [address] Ke Campbell MD [address] [place] [address] [address] [place] [address] Scheduled Orders Name Type Priority Associated Diagnoses Orde r Schedule MR Brain Without IV Contrast Imaging Routine Memory loss Expected: 03/05/2025, Expires: 09/05/2026 Scheduled Referrals Name Type Priority Associated Diagnoses Order Schedule Ambulatory referral to Behavioral Health Outpatient Referral Routine Memory loss Ordered: 03/05/2025 documented as of this encounter Procedures Procedure Name Priority Date/Time Associated Diagnosis Comments [id number]([facility]) Routine 03/05/2025 3:2 4 PM EDT VITAMIN B12 Routine 03/05/2025 3:24 PM EDT Memory loss FOLATE, SERUM Routine 03/05/2025 3:24 PM EDT Memory loss documented in this encounter Results * (ABNORMAL) [id number] (03/05/2025 3:24 PM EDT) P-ymi576 0.30(H) 0.00 - 0.18 pg/mL [facility] Comment: Clinical cutoff value was established using samples from a patient cohort characterized with amyloid PET data. A p-xew252 value of >0.18 is a reported surrogate marker for beta amyloid pathology, and can be used to facilitate biological identification of Alzheimer's disease (1). p-qia023 has also been used in clinical trials to monitor patients on anti-amyloid therapy (2,3). Test performed by [employer] chemiluminescent enzyme immunoassay (CLEIA). Values obtained with different methods cannot be used interchangeably. The validated limit of quantification is 0.06 pg/mL. Assay detection limit is 0.03 pg/mL. FOOTNOTES Comment [facility] Comment: 1. Adair Thurman, et al. Diagnostic Accuracy of a Plasma Phosphorylated Tau 217 Immunoassay for Alzheimer Disease Pathology. [place]O neurology (2023). 2. Adair Thurman, et al. Differential roles of A42/40, p-tep641 and p-cpx745 for Alzheimer's trial selection and disease monitoring. Nature medicine 28.12 (2021): 8203-8877. 3. Chong RIOS, Patt M, Anel SC, et al. Association of Donanemab Treatment With Exploratory Plasma Biomarkers in Early Symptomatic Alzheimer Disease: A Secondary Analysis of the TRAILBLAZER-ALZ Randomized Clinical Trial . [place]O Neurol. 2021;79(12):5179-1803. 03/05/2025 3:24 PM EDT 03/05/2025 Narrative [facility] - 03/08/2025 2:06 AM EDT Test(s) [id number] was developed and its performance characteristics determined by [facility]. It has not been cleared or approved by the Food and Drug Administration. Performed at: 01 - [facility] [address] [place] [id number] Manager Behavioral: Ashu Hawkins MD, Phone: [phone] Ke Campbell MD LAB BLOOD ORDERABLES Final Resul t [facility] * Folate, Serum (03/05/2025 3:24 PM EDT) Folate (Folic Acid), Serum >20.0 >3.0 ng/mL [facility] Comment: A serum folate concentration of less than 3.1 ng/mL is considered to represent clinical deficiency. Blood 03/05/2025 3:24 PM EDT 03/05/2025 Narrative [facility] - 03/08/2025 2:06 AM EDT Performed at: [address] [place] [id number] Manager Behavioral: Damion Rea PhD, Phone: [phone] Ke Campbell MD LAB BLOOD ORDERABLES Final Resul t Performing Organization Address [facility] de Phone Number [facility] * (ABNORMAL) Vitamin B12 (03/05/2025 3:24 PM EDT) Vitamin B12 >2000(H) 232 - 1245 pg/mL [facility] 03/05/2025 3:24 PM EDT 03/05/2025 Narrative [facility] - 03/08/2025 2:06 AM EDT Performed at: [address] [id number] Manager Behavioral: Damion Rea PhD, Phone: [phone] Ke Campbell MD LAB BLOOD ORDERABLES Final Resul t Performing Organization Address City/[facility] Co de Phone Number [facility] documented in this encounter Visit Diagnoses Diagnosis Memory loss- Primary documented in this encounter
--- OUTSIDE RECORDS SUMMARY | 2025-03-12 09:33 | XMS_ITS | Encounter Summary ---
Author Organization [facility] ([place], [place], [place], [place]) Address [address] [place] [address] Care Team Providers Care Fan Mail Clerk Name Role Phone Unavailable Primary Care Provider Unavailabl e Reason for Referral * Consultation (Routine) - Closed Specialty Diagnoses / Procedures Referred By Contac t Referred To Contact Neurology Diagnoses Memory loss Graham Jose MD [address] [facility] [address] [place] [address] Phone: tel: fax: Ke Campbell MD [address] [facility] [address] [place] [address] Phone: tel: fax: Referral ID Status Reason Start Date Expiration Date V isits Requested Visits Authorized [id number] Closed Specialty Services Required 02/05/2025 02/05/2026 1 1 Encounter Details Date Type Department Care Team (Late st Contact Info) Description 02/05/2025 Outside Orders [facility] Neurology - [address] [employer] [address] [place] [address] Graham Jose MD [address] [facility] [address] [place] [address] Memory loss (Primary Dx) 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 Tobacco [...] Date Clifford rded Speak language other than Thai at home Not on file 11/08/2023 Want [...] Info) Description 03/25/2025 8:00 AM EDT Appointment [facility] [address] [place] [address] Ke Campbell MD [address] [place] [address] [address] [place] [address] 04/02/2025 11:45 AM EDT Office Visit [facility] Neurology - [address] [place] [address] Ke Campbell MD [address] [place] [address] [address] [place] [address] Scheduled Referrals Name Type Priority Associated Diagnoses Order Schedule Ambulatory referral to Neurology Outpatient Referral Routine Memory loss Ordered: 02/05/2025 documented as of this encounter Visit Diagnoses Diagnosis Memory loss- Primary documented in this encounter
--- OUTSIDE RECORDS SUMMARY | 2025-03-12 09:33 | XMS_ITS | Clinical Summary ---
Author Organization [facility] Address [address] 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 CEFDINIR 300 MG CAPS one cap po bid 02/23 CEFDINIR 38576042777 Espinoza Malone MD. CEFTRIAXONE SODIUM 2 GM SOLR 2 gms IV Q 24 hrs/OPAT 01/26 CEFTRIAXONE SODIUM 45966196294 Karime Ramey RN CEFDINIR 300 MG CAPS one cap po bid 02/09 CEFDINIR 46136669497 Espinoza Malone MD. NORTRIPTYLINE HCL 50 MG CAPS take 1 capsule every night NORTRIPTYLINE HCL 47972697183 Yoselin Mclain NORTRIPTYLINE HCL 50 MG CAPS take 1 capsule every night 11/27 NORTRIPTYLINE HCL 66979128123 Yoselin Mclain NYSTATIN 553235 UNIT/ML SUSP 5 mL swish and swallow 4 times daily 01/01 NYSTATIN 84836247924 Espinoza Malone MD. CEFTRIAXONE SODIUM 2 GM SOLR 2 gms IV Q 24 hrs/OPAT 01/26 CEFTRIAXONE SODIUM 52147642499 Renay Hood RN BUDESONIDE 0.5 MG/2ML SUSP Inhale 2 puffs twice daily BUDESONIDE 57503173301 Valarie S GENTAMICIN SULFATE SOLN Irrigate bilateral nares daily GENTAMICIN SULFATE SOLN 37551804712 Valarie S NORTRIPTYLINE HCL 10 MG CAPS take 1 capsule daily 12/15 NORTRIPTYLINE HCL 92171380297 Valarie S VITAMIN D3 25 MCG (1000 UT) CAPS take 1 capsule daily CHOLECALCIFEROL 59198152174 Kaveh Pelaez ROZEREM 8 MG TABS take 1 tablet every night RAMELTEON 65924101493 Kaveh Pelaez RELPAX 20 MG TABS take 1 tablet b.i.d. ELETRIPTAN HYDROBROMIDE 86860415149 Kaveh Pelaez PROPRANOLOL HCL ER 80 MG PS70O-QFH take 1 capsule daily PROPRANOLOL HCL 82700299614 Kaveh Pelaez NORTRIPTYLINE HCL 50 MG CAPS take 1 capsule every night 0 11/27 NORTRIPTYLINE HCL 14674888204 Kaveh Pelaez NORTRIPTYLINE HCL 10 MG CAPS take 1 capsule daily 12/15 NORTRIPTYLINE HCL 26188957681 Kaveh Pelaez NEXIUM 24HR 20 MG TBEC take 1 tablet nightly ESOMEPRAZOLE MAGNESIUM 75859600542 Kaveh Pelaez MUPIROCIN 2 % OINT swab inside the nose b.i.d. MUPIROCIN 40321177928 Kaveh Pelaez METFORMIN HCL 1000 MG TABS take 1 tablet b.i.d. METFORMIN HCL 92544544604 Kaveh Pelaez GENTAMICIN SULFATE 40 MG/ML SOLN inject daily as directed 02/26 GENTAMICIN SULFATE 19882806010 Kaveh Pelaez ESOMEPRAZOLE MAGNESIUM 40 MG CPDR ESOMEPRAZOLE MAGNESIUM 52554865316 Kaveh Pelaez DYMISTA 137-50 MCG/ACT SUSP 1 spray to each nostril b.i.d. AZELASTINE-FLUTIC ASONE 86497476075 Kaveh Pelaez Medications Administered No information available. Allergies, Adverse Reactions, Alerts Allergy Name Reaction Description Start Date Severity Statu s Provider MEDROL Unknown No Longer Active Am leslee S NSAIDS Critical Active Valarie S VERSED Critical Active Valarie S SULFA Critical Active Valarie S MIDAZOLAM HCL Moderate Active Kaveh Pelaez VANCOMYCIN HCL Moderate Active Cora e M [...] in Serum or Plasma Lab Report: COMPREHENSIVE MS TABOLIC PANEL ANIONGAP 3.0 mmol/L 3.0-11.0 anion [...] Documenta tion of current medications (procedure) DIET LOAN REPRESENTATIVE yes Dietary management education, guidance, and counseling [...] Ceftazidime CPT- stat weekly Stat Weekly Labs [id number],[id number] CBC with Differential 2016 CPT-54247 CMP CPT-68522 C- reactive protein CPT-15246 Sedimentation Rate (ESR) 201 03/01/26 CPT-ca Continue IV antibiotics 2016 CPT-wpc Weekly PICC Line Care 12/22 CPT-J0696 Ceftriaxone CPT-indio New IV antibiotic CPT-90969 PICC Line Insertion CPT-J0696 Ceftriaxone A9536e,W897287 CBC with Differential 2016 CPT-20414 Sedimentation Rate (ESR) 201 03/01/19 CPT-82487 C- reactive protein CPT-51372 CMP CPT-cwl Weekly Labs (Continue) 12/15 CPT-wpc Weekly PICC Line Care 12/15 CPT- stat weekly Stat Weekly Labs 75882 Hepatitis C Atb: (ICD 10 Code: Z11.59) [...] SURROGATE NOT ON FILE 12/15 POWER OF CROWN BUFFER LIVING WILL NOT ON FILE
--- OUTSIDE RECORDS SUMMARY | 2025-03-12 09:34 | XMS_ITS | Clinical Summary ---
Author Organization [facility] ([place], [place], [place], [place]) Address [address] [place] [address] Care Team Providers Care Botany Teacher Name Role Phone Unavailable Primary Care Provider [...] days. Active BD Ultra-Fine Tanya Insulin Pen Buckley 4 mm x 32 G Inject under [...] Description 03/05/2025 1:45 PM EDT Office Visit [facility] [address] [address] Ke Campbell MD Memory loss (Primary Dx) 03/05/2025 Travel 02/05/2025 Outside Orders [facility] [address] [address] Graham Jose MD Memory loss (Primary Dx) [...] Date Clifford rded Speak language other than Occitan at home Not on file 11/08/2023 Want [...] Info) Description 03/25/2025 8:00 AM EDT Appointment [facility] [address] [facility] [address] [place] [address] Ke Campbell MD [address] [place] [address] [address] [place] [address] 04/02/2025 11:45 AM EDT Office Visit [facility] Neurology - [address] [place] [address] Ke Campbell MD [address] [place] [address] Health Maintenance Due Date Last Done Comments [...] Procedure Name Priority Date/Time Associated Diagnosis Comments [id number]([facility]) Routine 03/05/2025 3:2 4 PM EDT FOLATE, SERUM Routine 03/05/2025 3:24 PM EDT Memory loss VITAMIN B12 Routine 03/05/2025 3:24 PM EDT Memory loss from Last 3 Months Results * (ABNORMAL) p-[id number] (03/05/2025 3:24 PM EDT) P-pyg366 0.30(H) 0.00 - 0.18 pg/mL [facility] Comment: Clinical cutoff value was established using samples from a patient cohort characterized with amyloid PET data. A p-exu905 value of >0.18 is a reported surrogate marker for beta amyloid pathology, and can be used to facilitate biological identification of Alzheimer's disease (1). p-pgi600 has also been used in clinical trials to monitor patients on anti-amyloid therapy (2,3). Test performed by Jigsee chemiluminescent enzyme immunoassay (CLEIA). Values obtained with different methods cannot be used interchangeably. The validated limit of quantification is 0.06 pg/mL. Assay detection limit is 0.03 pg/mL. FOOTNOTES Comment [facility] Comment: 1. Adair Thurman, et al. Diagnostic Accuracy of a Plasma Phosphorylated Tau 217 Immunoassay for Alzheimer Disease Pathology. [facility] neurology (2023). 2. Adair Thurman, et al. Differential roles of A42/40, p-zfj252 and p-vdo743 for Alzheimer's trial selection and disease monitoring. Nature medicine 28.12 (2021): 1076-5105. 3. Chong RIOS, Patt M, Anel SC, et al. Association of Donanemab Treatment With Exploratory Plasma Biomarkers in Early Symptomatic Alzheimer Disease: A Secondary Analysis of the TRAILBLAZER-ALZ Randomized Clinical Trial . [place] Neurol. 2021;79(12):8940-4188. 03/05/2025 3:24 PM EDT 03/05/2025 Narrative [facility] - 03/08/2025 2:06 AM EDT Test(s) 612590-t-bdq391 was developed and its performance characteristics determined by [facility]. It has not been cleared or approved by the Food and Drug Administration. Performed at: 01 - [facility] [address] [place] [address], [place] [id number] Body Builder: Ashu Hawkins MD, Phone: [phone] us Ke Campbell MD LAB BLOOD ORDERABLES Final Resul t [facility] * (ABNORMAL) Vitamin B12 (03/05/2025 3:24 PM EDT) Vitamin B12 >2000(H) 232 - 1245 pg/mL [facility] 03/05/2025 3:24 PM EDT 03/05/2025 Narrative [facility] - 03/08/2025 2:06 AM EDT Performed at: [facility] [id number] Body Builder: Damion Rea PhD, Phone: [phone] Ke Campbell MD LAB BLOOD ORDERABLES Final Resul t Performing Organization Address [facility] Co de Phone Number [facility] * Folate, Serum (03/05/2025 3:24 PM EDT) [facility] Folate (Folic Acid), Serum >20.0 >3.0 ng/mL [facility] Comment: A serum folate concentration of less than 3.1 ng/mL is considered to represent clinical deficiency. Blood 03/05/2025 3:24 PM EDT 03/05/2025 Narrative [facility] - 03/08/2025 2:06 AM EDT Performed at: [facility] [id number] Body Builder: Damion Rea PhD, Phone: [phone] Ke Campbell MD LAB BLOOD ORDERABLES Final Resul t Performing Organization Address City/[facility] de Phone Number [facility] from Last [address] [place] [phone] MEDICARE PART A B [facility] SUPP
--- OUTSIDE RECORDS SUMMARY | 2025-03-12 09:34 | XMS_ITS | Referral Summary ---
Author Organization [employer] ([place], [place], [place], [place]) Address [address] [place] [address] Care Team Providers Care Mcat Tutor Name Role Phone Unavailable Primary Care Provider Unavailabl e Encounters * This document contains information received from the source organization and may not represent a complete record from that organization. Date Type Department Care Team Description 03/05/2025 Travel 03/05/2025 1:45 PM EDT Office Visit [facility] [employer] [address] [place] [phone] Ke Campbell MD Memory loss (Primary Dx) 02/05/2025 Outside Orders [facility] [employer] [address] Graham Jose MD Memory loss (Primary Dx) [...] days. Active BD Ultra-Fine Tanya Insulin Pen [place] 4 mm x 32 G Inject under [...] Info) Description 03/25/2025 8:00 AM EDT Appointment [facility] [address] [facility] [address] [place] [address] Ke Campbell MD [address] [place] [address] [address] [place] [address] 04/02/2025 11:45 AM EDT Office Visit [facility] Neurology - [address] [place] [phone] Ke Campbell MD [address] [place] [address] Procedures Procedure Name Priority Date/Time Associated Diagnosis Comments [id number]([facility]) Routine 03/05/2025 3:2 4 PM EDT FOLATE, SERUM Routine 03/05/2025 3:24 PM EDT Memory loss VITAMIN B12 Routine 03/05/2025 3:24 PM EDT Memory loss from Last 3 Months Results * (ABNORMAL) [id number] (03/05/2025 3:24 PM EDT) P-den421 0.30(H) 0.00 - 0.18 pg/mL [facility] Comment: Clinical cutoff value was established using samples from a patient cohort characterized with amyloid PET data. A p-svz166 value of >0.18 is a reported surrogate marker for beta amyloid pathology, and can be used to facilitate biological identification of Alzheimer's disease (1). p-bqs137 has also been used in clinical trials to monitor patients on anti-amyloid therapy (2,3). Test performed by Pond5 chemiluminescent enzyme immunoassay (CLEIA). Values obtained with different methods cannot be used interchangeably. The validated limit of quantification is 0.06 pg/mL. Assay detection limit is 0.03 pg/mL. FOOTNOTES Comment [facility] Comment: 1. Adair Thurman, et al. Diagnostic Accuracy of a Plasma Phosphorylated Tau 217 Immunoassay for Alzheimer Disease Pathology. [place] neurology (2023). 2. Adair Thurman, et al. Differential roles of A42/40, p-qec446 and p-tat621 for Alzheimer's trial selection and disease monitoring. Nature medicine 28.12 (2021): 0849-7999. 3. Chong RIOS, Patt M, Anel SC, et al. Association of Donanemab Treatment With Exploratory Plasma Biomarkers in Early Symptomatic Alzheimer Disease: A Secondary Analysis of the TRAILBLAZER-ALZ Randomized Clinical Trial . [place] Neurol. 2021;79(12):3733-9075. 03/05/2025 3:24 PM EDT 03/05/2025 Narrative [facility] - 03/08/2025 2:06 AM EDT Test(s) [id number] was developed and its performance characteristics determined by [facility]. It has not been cleared or approved by the Food and Drug Administration. Performed at: - [facility] [address] [place] [id number] Mcat Tutor: Ashu Hawkins MD, Phone: [phone] Ke Campbell MD LAB BLOOD ORDERABLES Final Resul t Performing Organization Address City/[facility] Co de Phone Number [facility] * (ABNORMAL) Vitamin B12 (03/05/2025 3:24 PM EDT) Vitamin B12 >2000(H) 232 - 1245 pg/mL [facility] 03/05/2025 3:24 PM EDT 03/05/2025 Narrative [facility] - 03/08/2025 2:06 AM EDT Performed at: [facility] [id number] Mcat Tutor: Damion Rea PhD, Phone: [phone] Ke Campbell MD LAB BLOOD ORDERABLES Final Resul t Performing Organization Address City/[facility] Co de Phone Number [facility] * Folate, Serum (03/05/2025 3:24 PM EDT) Folate (Folic Acid), Serum >20.0 >3.0 ng/mL [facility] Comment: A serum folate concentration of less than 3.1 ng/mL is considered to represent clinical deficiency. Blood 03/05/2025 3:24 PM EDT 03/05/2025 Narrative [facility] - 03/08/2025 2:06 AM EDT Performed at: [facility] [id number] Mcat Tutor: Damion Rea PhD, Phone: [phone] us Ke Campbell MD LAB BLOOD ORDERABLES Final Resul t [facility] from Last 3 Months Insurance [place] [address] [place] [address]
--- OUTSIDE RECORDS SUMMARY | 2025-03-12 09:34 | XMS_ITS | Patient Health Record ---
Author Organization [facility] Address [address] [place] [address] Care Team Providers Care Financial Planner Name Role Phone Estefany Chou Unavailable [phone] Allergies Allergen (clinical drug ingredient) Drug/Non Drug [...] of concern indicated by the patient. A kaguyuk marker is placed over a visible skin [...] Diagnosis 1 Breast pain (N64.4) Referral Organization [facility] Referring Provider First Name Estefany Referring [...] history of primary malignant neoplasm of breast (065580077) Personal history of breast cancer (Z85.3) Active confirmed Problem Gynecological examination normal (217901188763157 ) Cervical smear, as part of routine gynecological examination (Z01.419) 09/19/19 21 Active confirmed Annual without abnormal findings Vital Signs Blood pressure diastolic 64 mm Hg 02/18/2025 Height 67 in 02/18/2025 Blood pressure systolic 122 mm Hg 02/18/2025 Weight 166 lbs 02/18/2025 BMI 26 kg/m2 02/18/2025 Encounters Encounter Location Date Provider Diagnosis [facility] [address] [facility] [address] [place] [address] 02/18/2025 Estefany Chou Breast pain N64.4 ; Pain in right axilla M79.621 and Personal history of breast cancer Z85.3 [facility] [address] [address] 02/01/2025 Estefany Chou Encounter for gynecological examination [...] Name:Estefany Chou, 05/29/2025 11:00:00 AM, [address], [address], Provider Name:Estefany Chou, 02/03/2026 10:15:00 AM, [facility] [address], [address], Insurance Providers Payer Name Payer Address Payer Phone Subscriber Number Group Number Insured Name Patient Relationship to Insured Coverage Start Date Coverage End Date [place] [address] [place] [address] [id number] Candace Bryant Self - patient is the insured [facility] [address] [place], [place] [id number] Candace Bryant Self - patient is [...]
--- OUTSIDE RECORDS SUMMARY | 2025-03-12 09:34 | XMS_ITS | Encounter Summary ---
Author Organization [employer] ([place], [place], [place], [place]) Address [address] [place] [address] Care Team Providers Care Monogram Technician Name Role Phone Unavailable Primary Care Provider [...] Info) Description 03/25/2025 8:00 AM EDT Appointment [facility] [address] [facility] [address] [place] [address] Ke Campbell MD [address] [place] [address] [address] [place] [address] 04/02/2025 11:45 AM EDT Office Visit [facility] Neurology - [address] [facility] [address] [place] [phone] Ke Campbell MD [address] [facility] [address] [place] [address] documented as of this encounter Visit Diagnoses Not on filedocumented in this encounter
--- OUTSIDE RECORDS SUMMARY | 2025-03-12 09:34 | XMS_ITS | Clinical Summary ---
Author Organization [facility] Address [address] [place] [address] Care Team Providers Care Infant Childcare Provider Name Role Phone Graham Jose MD Primary Care Provider [phone] Source Comments This information has been disclosed [...] therelease of HIV test results or diagnoses. [id number] Health Allergies Active Allergy Reactions [...] - 5.6 % 01/11/2023 4:[address] [facility] Comment: Hemoglobin A1c Interpretation Guidelines: [...] MD LAB BLOOD ORDERABLES Final Resul t [facility] [address] [place] [address], [facility] from Last 3 Months or Most Recently Relevant to Health Maintenance Insurance [facility] MEDICARE A AND B Care Teams Infant Childcare Provider Relationship Specialty Start Date End Date Graham Jose MD [address] [place] [address] [place] [address] PCP - General Internal Medicine 08/04/22
--- OUTSIDE RECORDS SUMMARY | 2025-03-12 09:35 | XMS_ITS | Clinical Summary ---
Author Organization [facility] Address [address] [place] [phone] Phone Care Team Providers Care Recycling Collections Driver Name Role Phone Graham Jose MD Unavailable [phone] Shellie Hodges MD Unavailable [phone] Graham Jose MD Primary Care Provider [phone] Allergies Active Allergy Reactions Criticality Noted Date [...] Active azelastine (ASTELIN) 137 mcg Nasl Aerosol, [place] 2 Sprays by Each Nare route 2 [...] PM EDT) Hep C Ab Negative Negative [facility] Blood specimen (specimen) 12/27/2014 3:17 PM EDT 12/27/2014 5:56 PM EDT Shellie Hodges MD IMMUNOLOGY ORDERABLES Fin al Result Performing Organization Address City/State/[facility] Co de Phone Number [facility] [address] [place] [address] from Last 3 Months or Most Recently Relevant to Health Maintenance Insurance [employer] PPO MEDICARE PART A HB on file ANTHEM PPO * Guarantor: Candace Bryant Account Type Relation to Patient Date of Phone Billing Address [place] Personal Family Self Care Teams Recycling Collections Driver Relationship Specialty Start Date End Date Graham Jose MD [address] [facility] [address] [place] [address] PCP - General Internal Medicine-Adolescent Medicine 05/09/15 Graham Jose MD [address] [place] [address] Internal Medicine-Adolescent Medicine 12/27/14 Shellie Hodges MD [address] [place] [address] Internal Medicine-Rheumatology 12/27/14
--- OUTSIDE RECORDS SUMMARY | 2025-03-12 09:35 | XMS_ITS | Clinical Summary ---
Author Organization [facility] Address [address] [place] [address] Care Team Providers Care Bumper Straightener Name Role Phone Graham Jose MD Primary Care Provider [phone] Allergies Active Allergy Reactions Criticality Noted Date [...] Density Scan 11/20/2023 11/19/2021 , 02/12/2020, 07/07/2017 [id number] Vaccine ( season) 2024 06/10/2021, 10/21/2020, 09/26/2020 [...] age to complete this topic Insurance MEDICARE [facility] Care Teams Bumper Straightener Relationship Specialty Start Date End Date Graham Jose MD [address] [place] [address] [place] [address] PCP - General 01/09/21
== END 2025-03-12 23:59 | disposition home or self-care (01) ==
LOC: LAB.DROPOF 09:32
PROVIDERS: PCP Internal Medicine Adolescent Medicine; Visit Provider Physician Assistant
DX: M62.838 Other muscle spasm (principal); M79.7 Fibromyalgia; R19.7 Diarrhea, unspecified; R10.13 Epigastric pain; R53.83 Other fatigue; E83.42 Hypomagnesemia

== ENCOUNTER 2025-08-06 10:46 | Outpatient (CLI) | payer MEDICARE, SELFPAY ==
--- NOTE | 2025-08-06 | US_ITS ---
FINAL REPORT CLINICAL HISTORY: Claudication vs neuropathy, DM FINDINGS: Ankle-brachial indices were obtained. The right JESSICA is 1.1. The left JESSICA is 1.2. IMPRESSION: ABIs are within normal limits bilaterally. Reviewed, Interpreted and Dictated by Uriel Bai MD Transcribed by Torri Hastings Authenticated and [facility]
== END 2025-08-06 23:59 | disposition home or self-care (01) ==
LOC: RT 10:47
PROVIDERS: PCP Internal Medicine Adolescent Medicine; Visit Provider Internal Medicine Adolescent Medicine
DX: I73.9 Peripheral vascular disease, unspecified (principal)
CPT/HCPCS: 93923; 93924

== ENCOUNTER 2025-08-16 15:50 | Outpatient (CLI) | payer MEDICARE, SELFPAY ==
--- OUTSIDE RECORDS SUMMARY | 2025-07-09 11:30 | XMS_ITS | Encounter Summary ---
Author Organization [facility] Address [address] [place] [id number] Care Team Providers Care Machinist Mate Name Role Phone Graham Jose MD Primary Care Provider [phone] Reason for Referral * MRI/CAT/PET Scan (Routine) - Authorized Specialty Diagnoses / Procedures Referred By Helen sellers Referred To Contact Radiology Diagnoses Malignant neoplasm of lower-outer quadrant of right breast of female, estrogen receptor positive Encounter for breast cancer screening using non-mammogram modality Procedures MRI Breast Bilateral Screening With & Without Contrast Radha Hernandez APRN [address] [facility] [address] [place] [address] Phone: tel: fax: [facility] [address] [place] [address] Phone: tel: Referral ID Status Reason Start Date Expiration Date V isits Requested Visits Authorized [id number] Authorized 07/09/2025 10/08/2026 1 1 * Diagnostic Imaging (Routine) - Authorized Specialty Diagnoses / Procedures Referred By Helen sellers Referred To Contact Radiology Diagnoses Malignant neoplasm of lower-outer quadrant of right breast of female, estrogen receptor positive Abnormal mammogram Procedures Mammo Diagnostic Digital Tomosynthesis Bilateral With CAD Radha Hernandez APRN [address] [facility] [address] [place] [address] Phone: tel: fax: [facility] [address] [place] [address] Phone: tel: Referral ID Status Reason Start Date Expiration Date V isits Requested Visits Authorized [id number] Authorized 07/09/2025 10/08/2026 1 1 Encounter Details Date Type Department Care Team (Late st Contact Info) Description 07/09/2025 11:30 AM EST Office Visit [facility] HEMATOLOGY & ONCOLOGY [address] [facility] [address] [place] [address] Radha Hernandez APRN [address] [facility] [address] [place] [phone] Malignant neoplasm of lower-outer quadrant of right breast of female, estrogen receptor positive (Primary Dx); Abnormal mammogram; Encounter for breast cancer screening using non-mammogram modality 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 Tobacco Use Types Packs/Day Years Used Date Smoking Tobacco: Never Smokeless Tobacco: Never Alcohol Use Standard Drinks/Week Comments Yes 3 (1 standard drink = 0.6 oz pur e alcohol) PHQ-2 Answer Date Recorded Retired PHQ-9: Brief Depression Severity Measure Score 1 07/01/2023 PHQ-2 Answer Date Recorded Patient Health Questionnaire-2 Score 0 07/09/2025 Comments No Sex and Gender Information Value Date Recorded Sex Assigned at Not on file Legal Sex Female 10:00 AM EDT Gender Identity Not on file Sexual Orientation Not on file documented as of this encounter Last Filed Vital Signs Vital Sign Reading Time Taken Comments Blood Pressure - - Pulse - - Temperature - - Respiratory Rate - - Oxygen Saturation - - Inhaled Oxygen Concentration - - Weight 78 kg (172 lb) 07/09/2025 11:47 AM EST Height 175.3 cm (5' 9.02 ) 07/09/2025 11:[address] Body Mass Index 25.39 07/09/2025 11:47 AM EST documented in this encounter Functional Status * PHQ-2/PHQ-9: Depression Screening Question Answer Date of Assessment Author Little interest or pleasure in doing things Not at all 07/09/2025 1:19 PM Radha Galaviz APRN Feeling down, depressed, or hopeless Not at all 07/09/2025 1:19 PM Radha Galaviz APRN Patient Health Questionnaire-2 Score 0 07/09/2025 1:19 PM Radha Galaviz APRN documented as of this encounter Progress Notes * Radha Hernandez APRN - 07/09/2025 11:30 AM EST PROBLEM LIST: 1. pT1a N0 M0 (stage IA) ER positive AR positive HER-2 negative invasive ductal carcinoma of the right breast A) the patient presented with an abnormality on screening mammogram. On 05/20/2017 she underwent lumpectomy. Final pathology showed a 5 mm grade 1 invasive ductal carcinoma. 0 of 4 lymph nodes were involved. B) anastrozole started May 2017. Anastrozole discontinued June 2022. 2. Diabetes 3. Hyperlipidemia 4. Gastroesophageal reflux disease 5. Hypertension 6. Fibromyalgia 7. Stevenson's disease 8. Neuropathy 9. Obstructive sleep apnea 10. osteopenia Subjective Cc: breast cancer HISTORY OF PRESENT ILLNESS: Candace Bryant returns for follow-up. Anastrozole discontinued in June 2022. She completed 5 years of adjuvant endocrine therapy. She has been evaluated at [facility] for memory deficits. She has a follow-up September 2025 scheduled. She continues to have chronic sinus infections and is using an antibiotic nasal lavage twice a day. She recently was evaluated by cardiology for carotid stenosis. She continues to have pain in the backs of her legs worse with walking. She denies any new long bone pain. No change in cough or dyspnea. Objective Ht 175.3 cm (69.02 ) Wt 78 kg (172 lb) BMI 25.39 kg/m?? Vitals: 07/09/25 1147 PainSc: 0-No pain Performance Status: 0 General: well appearing female in no acute distress Neuro: alert and oriented HEENT: sclera anicteric, oropharynx clear Lymphatics: no cervical, supraclavicular, or axillary adenopathy Breast: Left breast deferred. Right breast with well-healed lumpectomy incision. No masses or skin changes. Abdomen: soft, nontender, nondistended. No palpable organomegaly Extremeties: no lower extremity edema Skin: no rashes, lesions, bruising, or petechiae Psych: mood and affect appropriate Assessment & Plan Candace Bryant is a 75 y.o. year old female with stage IA ER positive breast cancer who returns for follow-up on anastrozole. She has now complete 5 years of endocrine therapy. Anastrozole stopped 07/18/2022. Clinically she is doing well with no evidence of disease recurrence at this time. Bilateral diagnostic mammogram 02/27/2025 with right breast ultrasound BI-RADS Category 2, benign. Order placed for bilateral diagnostic mammogram due February 2026. Screening breast MRI 06/12/2025 BI-RADS Category 2, benign. Order placed for screening breast MRI due May 2026. Follow-up in 1 year. Radha Hernandez APRN [facility] Hematology and Oncology 07/09/2025 CC: documented in this encounter Plan of Treatment Upcoming Encounters Date Type Department Care Team (Late st Contact Info) Description 07/09/2026 11:30 AM EST Office Visit [facility] HEMATOLOGY & ONCOLOGY [address] [address] Radha Hernandez APRN [address] [facility] [address] [place] [address] Scheduled Orders Name Type Priority Associated Diagnoses Orde r Schedule Mammo Diagnostic Digital Tomosynthesis Bilateral With CAD Imaging Routine Malignant neoplasm of lower-outer quadrant of right breast of female, estrogen receptor positive Abnormal mammogram Expected: 02/28/2026, Expires: 08/27/2026 MRI Breast Bilateral Screening With & Without Contrast Imaging Routine Malignant neoplasm of lower-outer quadrant of right breast of female, estrogen receptor positive Encounter for breast cancer screening using non-mammogram modality Expected: 06/13/2026, Expires: 12/10/2026 documented as of this encounter Visit Diagnoses Diagnosis Malignant neoplasm of lower-outer quadrant of right breast of female, estrogen receptor positive- Primary Abnormal mammogram Abnormal mammogram, unspecified Encounter for breast cancer screening using non-mammogram modality documented in this encounter Additional Health Concerns Assessment Noted Time PHQ-2 Depression Total Score: 1 07/01/20 23 10:55 AM EDT documented as of this encounter Care Teams Machinist Mate Relationship Specialty Start Date End Date Graham Jose MD [address] [facility] [address] [address] PCP - General 12/08/15 documented as of this encounter
--- NOTE | 2025-08-16 15:53 | MR_ITS ---
FINAL REPORT TECHNIQUE: Multiplanar MR without contrast CLINICAL HISTORY: LUMBAR STENOSIS WITH NEUROGENIC CLAUDICATION pain walking up stairs FINDINGS: Sagittal images show normal vertebral height. Alignment is normal. Marrow signal pattern is unremarkable. L1-2: Minimal annular disc bulge. L2-3: Minimal annular disc bulge. L3-4: Moderate annular disc bulge with mild facet overgrowth. There is mild central canal stenosis and bilateral neuroforaminal narrowing. L4-5: Mild annular disc bulge with moderate facet overgrowth. Mild central canal stenosis and bilateral neuroforaminal narrowing. L5-S1: Mild annular disc bulge with mild facet overgrowth. Mild bilateral neuroforaminal narrowing. IMPRESSION: Multilevel degenerative changes as above. Reviewed, Interpreted and Dictated by Denver Lizarraga MD Transcribed by Nora Davies Authenticated and [facility]
--- OUTSIDE RECORDS SUMMARY | 2025-08-16 15:53 | XMS_ITS | Clinical Summary ---
Author Organization [facility] Address [address] [place] [address] Care Team Providers Care Coater Helper Name Role Phone Graham Jose MD Primary Care Provider Allergies Active Allergy Reactions Criticality Noted Date Comments Nebivolol 05/13/2015 Celecoxib 05/13/2015 Codeine 05/13/2015 Duloxetine Swelling 05/13/2015 Indomethacin Sodium 05/13/2015 Pregabalin Swelling 05/13/2015 Gabapentin 05/13/2015 Nsaids (Non-Steroidal Anti-Inflammatory Drug) Other (See Comments) 05/13/2015 Bleeding ulcers Metoclopramide Hcl 05/13/2015 Sulfa (Sulfonamide Antibiotics) 05/13/2015 Hydrocodone-Acetaminophen 05/13/2015 Medications azelastine (ASTELIN) 137 mcg (0.1 %) Aerosol, [place] into nose as needed. Active eletriptan (RELPAX) 20 mg Tablet Take 20 mg by mouth once as needed. Active esomeprazole (NEXIUM) 40 mg Capsule, Delayed Release(E.C.) Take by mouth. Active methylcellulose Powder Take by mouth. Active nortriptyline (PAMELOR) 50 mg capsule Take 50 mg by mouth. Active polyethylene glycol (GLYCOLAX) 17 gram packet Take 17 g by mouth. Active propranolol (INDERAL LA) 80 mg SR capsule Take 80 mg by mouth 2 times daily. Active Zolpidem 12.5 mg Tablet, Multiphasic Release Take 12.5 mg by mouth. Active Valerian Root 500 mg Capsule Take by mouth. Active hydrALAZINE (APRESOLINE) 25 mg tablet Take 25 mg by mouth 3 times daily. Active furosemide (LASIX) 20 mg tablet Take 20 mg by mouth daily. Active Active Problems Problem Noted Date Diagnosed Date Chest pain 05/13/2015 SOB (shortness of breath) 05/13/2015 Palpitation 05/13/2015 LUKE positive 05/13/2015 Family History Medical History Relation Name Comments Heart Attack Mother Relation Name Status Comments Mother 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 Tobacco Use Types Packs/Day Years Used Date Smoking Tobacco: Never Smokeless Tobacco: Never Alcohol Use Standard Drinks/Week Comments Yes 1.7 (1 standard drink = 0.6 oz p ure alcohol) Comments Unknown Sex and Gender Information Value Date Recorded Sex Assigned at Not on file Legal Sex Female 7:07 PM EST Gender Identity Not on file Sexual Orientation Not on file Last Filed Vital Signs Vital Sign Reading Time Taken Comments Blood Pressure 126/72 06/06/2015 9:25 AM EDT Pulse 80 06/06/2015 9:25 AM EDT Temperature - - Respiratory Rate 18 10/09/2010 6:06 PM EST Oxygen Saturation - - Inhaled Oxygen Concentration - - Weight 79.8 kg (176 lb) 06/06/2015 9:25 AM EDT Height 174.6 cm (5' 8.75 ) 06/06/2015 9:25 AM ED T Body Mass Index 26.18 06/06/2015 9:25 AM EDT Plan of Treatment Health Maintenance Due Date Last Done Comments Lipid Screening 1966 Tetanus Vaccination (Every 10 Years) 1966 Hepatitis C Virus (HCV) Screening 1969 Pneumococcal Vaccine: 50+ Years (1 of 1 - PCV) 998 Zoster-RZV(Shingrix) (1 of 2) 1998 Fall Risk Assessment 2013 Osteoporosis Screening 2013 RSV Vaccines (1 - 1-dose 75+ series) 2023 Advance Care Planning 08/29/2024 Depression Screening 08/29/2024 COVID-19 Vaccine ( - 2024- season) 2025 Influenza Vaccination (#1) 2025 [facility] [id number] [facility] [id number] AN[facility]M Care Teams Coater Helper Relationship Specialty Start Date End Date Graham Jose MD [address] [place] [address] PCP - General Internal Medicine 10/09/10
--- OUTSIDE RECORDS SUMMARY | 2025-08-16 15:53 | XMS_ITS | Clinical Summary ---
Author Organization [facility] Address [address] [place] [id number] Phone Care Team Providers Care Laborer Concrete Paving Name Role Phone Graham Jose MD Unavailable [phone] Shellie Hodges MD Unavailable [phone] Graham Jose MD Primary Care Provider [phone] Allergies Active Allergy Reactions Criticality Noted Date [...] Active azelastine (ASTELIN) 137 mcg Nasl Aerosol, Stanley 2 Sprays by Each Nare route 2 [...] 1960 History of stomach ulcers Tachycardia, unspecified 2006 Family History Medical History Relation Name Comments [...] 75+ series) 2023 COVID-19 Vaccine (1 - 2024-2 6 season) 2025 Influenza Vaccine (#1) 2025 Hepatitis C Screening [...] PM EDT) Hep C Ab Negative Negative [facility] Blood specimen (specimen) 12/27/2014 3:17 PM EDT 12/27/2014 5:56 PM EDT Shellie Hodges MD IMMUNOLOGY ORDERABLES Fin al Result Performing Organization Address City/State/[facility] Co de Phone Number [facility] [address] [place] [address] from Last 3 Months or Most Recently Relevant to Health Maintenance Insurance [employer] PPO MEDICARE PART A HB [facility] [place] [id number] ANTH PPO * Guarantor: Candace Bryant Account Type Relation to Patient Date of Phone Billing Address [place] Personal Family Self Care Teams Laborer Concrete Paving Relationship Specialty Start Date End Date Graham Jose MD [address] [place] [address] PCP - General Internal Medicine-Adolescent Medicine 05/09/15 Graham Jose MD [address] [place] [address] Internal Medicine-Adolescent Medicine 12/27/14 Shellie Hodges MD [address] [place] [address] Internal Medicine-Rheumatology 12/27/14
--- OUTSIDE RECORDS SUMMARY | 2025-08-16 15:53 | XMS_ITS | Encounter Summary ---
Author Organization [facility] Address [address] [place] [address] Care Team Providers Care Combination Worker Name Role Phone Graham Jose MD Primary Care Provider [phone] Encounter Details Date Type Department Care Team (Late st Contact Info) Description 05/20/2015 Abstract [facility] Physicians - Heart & Vascular, [address] [place] [address] Galina Rodriguez, RN 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 Tobacco Use Types Packs/Day Years [...] as of this encounter Plan of Treatment Not on file documented as of this encounter Visit Diagnoses Not on filedocumented in this encounter Care Teams Combination Worker Relationship Specialty Start Date End Date Graham Jose MD [address] [place] [address] PCP - General Internal Medicine 10/09/10 documented as of this encounter
--- OUTSIDE RECORDS SUMMARY | 2025-08-16 15:53 | XMS_ITS | Patient Health Record ---
Author Organization [facility] Address [address] [place] [address] Care Team Providers Care Knot Saw Operator Name Role Phone Estefany Chou Unavailable [phone] Allergies Allergen (clinical drug ingredient) Drug/Non Drug [...] Vancomycin HCl rash Drug Allergy A ctive lidocaine Lidocaine rash Drug Allergy Active Results Component Value Reference Range Notes MAMMO DIAGNOSTIC DIGITAL AZALEA OSYNTHESIS BILATERAL W CAD Reviewed date:03/13/2025 12:18:02 PM Interpretation:BIRAD 2 Benign, follow up in one [...] of concern indicated by the patient. A [place] marker is placed over a visible skin lesion. A linear marker indicates a scar. 02/27/2025 3:[address] Kaycee Peña MD on Signed by: Kaycee Peña MD on 02/27/2025 3:34 PM Right breast pian 900-1000 lateral edge of breast and right axilla pain Reason for Exam:->BREAST PAIN MRI BREAST BILATERAL SCREENI NG W WO CONTRAST Reviewed date:06/17/2025 03:24:57 PM Interpretation:Negative Performing Lab: Notes/Report: BILATERAL BREAST MRI WITH CONTRAST CLINICAL HISTORY: 75-year-old patient presents for intermediate risk screening breast MRI. The patient is a personal history of a right breast invasive ductal carcinoma. The patient is also undergone multiple prior benign right core biopsies. The patient is postmenopausal. TECHNIQUE: MRI was performed on a 1.5 T Siemens Cindy magnet utilizing a 16-channel breast coil. Pre-contrast spin-echo T1 weighted and STIR sequences were obtained in the axial plane. Routine dynamic images were performed following the administration of 15.0 ml of Multihance contrast. Maximum intensity projection images were created. No contrast complications occurred. Delayed high resolution post contrast T1 weighted sagittal images were also obtained. A CAD system (Qool) was utilized for data analysis. The patient was imaged with her arms down by her side. COMPARISON: Comparison is made to prior breast MRIs done on 04/19/2024, 04/18/2023, 08/02/2022, 07/29/2021, 02/12/2021, 07/16/2020, 07/04/2019. Comparison is made to the patient's most recent screening mammogram done on 02/27/2025 FINDINGS: Contrast is identified within the heart and great vessels. There is minimal background contrast enhancement of the patient's heterogeneous fibroglandular tissue. There are stable postlumpectomy changes involving the RIGHT breast. No abnormal mass or non-mass enhancement is seen on either side. There is no evidence of axillary adenopathy. There is no evidence of internal mammary adenopathy. There is a stable oval nonenhancing isointense mass which is high in signal intensity on the STIR sequences in the anterior aspect of the visualized liver and measures approximately 2 cm in size. This is consistent with an hepatic cyst. Stable benign intermediate risk screening breast MRI. BI-RADS CATEGORY: 2, BENIGN The patient is a candidate to continue with annual intermediate risk screening breast MRI. 06/14/2025 3:[address] Kaycee Peña MD on Signed by: Kaycee Peña MD on 06/14/2025 3:15 PM Category/ Diagnosis- Intermediate Risk/ HX of Inv Ductal CA Right, HX Radiation 2016 Date of last cycle/ HRT- No cycles/ No HRT Personal Hx of Breast ca- Yes Right 04/12/2017 Family Hx breast ca- Yes Maternal Aunt (58), Maternal Cousin x 2 (Ages of dx unknown) Any New palpable lumps/breast pain/skin cysts?- No new symptoms, Right Breast Pain x 6 months- axilla to nipple at approximately 0930 per pt Breast surgery?- Right EXC BX 01/21/2010, Right lumpectomy 05/20/2017, Right x 2 MR BX 07/04/2019, Right Stereo BX 03/11/2021, Right US BX 09/03/2022, Right Stereo BX 09/23/2022 Last Mammogram: [facility] 02/27/2025 Date of Last Breast MRI: 04/19/2024 Contrast- 15 mL Multihance Axial FOV: 320 Sag FOV: 240 Arms Prior: Down Arms Today: Down Any vaccines within the last 3 months: No Today's weight (lb): 165, 2 lb weight loss since last BMR Repeated T1 Due to pt motion, best images sent Reason for Exam:->Screening Reason For Referral Reason Dx BIlateral MMG- U/ S if needed right breast pain at the right lateral edge breast pain 9-10:00 and right inner axilla pain Diagnosis 1 Breast pain (N64.4) [facility] Provider First Name Nokomis Referring Provider Last Name [facility] Referring Provider Speciality OB - Gynec ology Referral Priority Routine Referral Appointment Date 02/27/2025 Reason Bilateral Breast MRI with and without contrast. Pain with negative diagnostic mammogram and u/s right breast in 02/2025 Diagnosis 1 Breast pain (N64.4) Referral Organization [facility] Referring Provider First Name Nokomis Referring Provider Last Name José Antonio Referring Provider Speciality OB - Gynec ology General Notes Ambar Lombardo 05/29 01:52:33 PM EDT >Order faxed [facility] at [phone], they will reach out to schedule the patient. Referral Priority Routine Medications Medication SIG (Take, Route, Frequency, Duration) Notes Start Date End Date Status Folic Acid Active Toujeo ThioStar Not- Taking/PRN Inderal LA 80 MG Capsule Extended Release 24 Hour 1 capsule Orally Once a day Active Basaglar KwikPen Act ameena Vitamin D Active Citrucel Active Anastrozole 1 MG Tablet 1 tablet Orally Once a day Not-Taking/PRN Trulicity Active Clopidogrel Bisulfate Active Vitamin B12 Active RABEprazole Sodium A ctive Relpax Active Nortriptyline HCl Ac tive Losartan Potassium 50 MG Tablet 1 tablet Orally Once a day Active MiraLax Active 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 Tobacco Use: 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 [...] history of primary malignant neoplasm of breast (551805810) Personal history of breast cancer (Z85.3) Active confirmed Problem Gynecological examination normal (660921343074365 ) Cervical smear, as part of routine gynecological examination (Z01.419) 09/19/19 21 Active confirmed Annual without abnormal findings Vital Signs Blood pressure diastolic 60 mm Hg 05/29/2025 Height 67 in 05/29/2025 Blood pressure systolic 120 mm Hg 05/29/2025 Weight 166 lbs 02/18/2025 BMI 26 kg/m2 02/18/2025 Encounters Encounter Location Date Provider Diagnosis [facility] [address] [address] 02/01/2025 Estefany Chou Encounter for gynecological examination with abnormal finding Z01.411 ; Breast pain N64.4 and Vulvar lesion N90.89 [facility] [address] [facility] [address] [place] [address] 02/18/2025 Estefany José Antonio Breast pain N64.4 ; Pain in right axilla M79.621 and Personal history of breast cancer Z85.3 [facility] [address] [facility] [facility] [address] [place] [address] 05/29/2025 Estefany Chou Breast pain N64.4 ; Pain in right axilla M79.621 and Personal history of breast cancer Z85.3 [facility] [address] [place] [address] 06/05/2025 Estefany Chou Assessments Encounter Date Diagnosis (ICD Code) Assessment Notes Treatment Notes Treatment Clinical Notes Section Notes 02/01/2025 Breast pain (ICD-10 - N64.4) F/U breast exam in 2 weeks. 02/01/2025 Encounter for gynecological examination with abnormal finding (ICD-10 - Z01.411) 02/18/2025 Breast pain (ICD-10 - N64.4) 02/18/2025 Pain in right axilla (ICD-10 - M79.621) 05/29/2025 Breast pain (ICD-10 - N64.4) Patient had negative diagnostic mammogram and u/s of right breast . High risk breast MRI is scheduled in , but due to persistent pain will reschedule MRI for now. 05/29/2025 Pain in right axilla (ICD-10 - M79.621) 02/18/2025 Personal history of breast cancer (ICD-10 - Z85.3) 02/01/2025 Vulvar lesion (ICD-10 - N90.89) F/U in 2 weeks and no further squeezing attempts of the lesions by the patient. 05/29/2025 Personal history of breast cancer (ICD-10 - Z85.3) Plan Of Treatment Next Appt Details Provider Name:Estefany Chou, 02/03/2026 10:15:00 AM, [address] [facility] [address], [place], [address], Insurance Providers Payer Name Payer Address Payer Phone Subscriber Number Group Number Insured Name Patient Relationship to Insured Coverage Start Date Coverage End Date [place] [address] [place] [address] [id number] Candace Bryant Self - patient is the insured [facility] [address] [place], [place] [id number] Anuradha Bryantah Self - patient is the insured Medical (General) History Medical History History ICD Code diabetes migraines fibromyalgia joint pain breast cancer Grovers disease htn ibs AV Block tendonosis Tam's esophagus fractured left lower extremity squamous cell cancer shoulder heart bloackage Surgical History Surgery Date(Month/Year) breast bx x [...]
--- OUTSIDE RECORDS SUMMARY | 2025-08-16 15:54 | XMS_ITS | Encounter Summary ---
Author Organization [facility] Address [address] [place] [id number] Care Team Providers Care Copy Reader Name Role Phone Graham Jose MD Primary Care Provider [phone] Reason for Visit * Reason Onset Date Comments FRANDY LOBO - SAME DAY CANCEL 06/26/2025 Encounter Details Date Type Department Care Team (Late st Contact Info) Description 06/26/2025 Telephone [facility] [address] [facility] [address] [place] [address] Radha Lobo APRN [address] [facility] [address] [place] [address] FRANDY LOBO - SAME DAY CANCEL 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 Tobacco Use Types Packs/Day Years Used Date Smoking Tobacco: Never Smokeless Tobacco: Never Alcohol Use Standard Drinks/Week Comments Yes 3 (1 standard drink = 0.6 oz pur e alcohol) PHQ-2 Answer Date Recorded Retired PHQ-9: Brief Depression Severity Measure Score 1 07/01/2023 PHQ-2 Answer Date Recorded Patient Health Questionnaire-9 Score 0 06/29/2024 Comments No Sex and Gender Information Value Date Recorded Sex Assigned at Not on file Legal Sex Female 10:00 AM EDT Gender Identity Not on file Sexual Orientation Not on file documented as of this encounter Miscellaneous Notes * Telephone Encounter - Kael Ayala RegSched Rep - 06/26/2025 1:25 PM EDT Called patient rescheduled appointment * Telephone Encounter - Devorah David RegSched Rep - 06/26/2025 9:16 AM EDT Caller: Candace Bryant Relationship: Self Best call back number: [phone] PATIENT CALLED REQUESTING TO CANCEL SAME DAY APPT. Did the patient call AFTER the start time of their scheduled appointment? []YES [x]NO Any additional information: PLEASE CALL PT TO R/S, UNABLE TO WT documented in this encounter Plan of Treatment Upcoming Encounters Date Type Department Care Team (Late st Contact Info) Description 07/09/2026 11:30 AM EST Office Visit [facility] [address] [facility] [address] [place] [id number] Radha Lobo APRN [address] [facility] [address] [place] [address] documented as of this encounter Visit Diagnoses Not on filedocumented in this encounter Additional Health Concerns Assessment Noted Time PHQ-2 Depression Total Score: 1 07/01/20 23 10:55 AM EDT documented as of this encounter Care Teams Copy Reader Relationship Specialty Start Date End Date Graham Jose MD [address] [facility] [address] [place] [address] PCP - General 12/08/15 documented as of this encounter
--- OUTSIDE RECORDS SUMMARY | 2025-08-16 15:54 | XMS_ITS | Clinical Summary ---
Author Organization [facility] Address [address] [place] [address] Care Team Providers Care Equal Opportunity Assistant Name Role Phone Graham Jose MD Primary Care Provider + [phone] Allergies Active Allergy Reactions Criticality Noted Date Comments Sulfamethoxazole-Trimet hoprim Swelling High 12/15/2016 GENERALIZED SWELLING Clarithromycin Other (See Comments) 12/15/2016 Was told not to take with migraine medication Ciprofloxacin GI Intolerance Low Abdominal pain Clindamycin/Lincomycin Other (See Comments) Low 12/15/2016 ABDOMINAL PAIN Codeine Itching,Nausea Only,Rash Medium 05/13/2015 And rash Duloxetine Hcl Other (See Comments) High 12/15/2016 LEG SWELLING Tilactase Other (See Comments) 05/31/2017 Migraines Gabapentin Unknown (See Comments) 12/15/2016 Doesn't remember reaction - thinks it was leg swelling as well Hydrocodone Itching,Nausea Only,Rash Low 02/06/2019 Levofloxacin Other (See Comments) High 01/03/2018 Ruptured tendons and trigger finger Metformin Diarrhea,GI Intolerance 07/19/2019 Nebivolol Unknown (See Comments) 05/13/2015 Doesn't remember reaction Nsaids Other (See Comments),GI Bleeding Medium 09/03/2009 Bleeding ulcers Other 05/31/2017 Pork and strawberries Pregabalin Swelling Low 05/13/2015 Lower legs Sulfa Antibiotics Swelling High 02/02/2007 GENERALIZED SWELLING Topiramate Unknown - Low Severity 02/11/2022 Vancomycin Other (See Comments) Medium 12/15/2016 Red Man's Syndrome Medications eletriptan (RELPAX) 20 MG tablet Take 1 tablet by mouth Daily. may repeat in 2 hours if necessary Active propranolol (INDERAL) 80 MG tablet Take 1 tablet by mouth Daily. Active azelastine (ASTELIN) 0.1 % nasal spray Administer 1 spray into the nostril(s) as directed by provider 2 (Two) Times a Day. Active Cholecalcifero l (VITAMIN D-3 PO) Take 2,000 Units by mouth Daily. Every 4 days Active RA VITAMIN B-12 TR 1000 MCG tablet controlled-rel ease take 1 tablet by mouth once daily 30 each 5 8 Active folic acid (FOLVITE) 400 MCG tablet Take 1 tablet by mouth Daily. Active losartan (COZAAR) 50 MG tablet 0 9 Active Polyethylene Glycol 3350 (MIRALAX PO) Take 17 g by mouth. Active FIBER DIET PO Take by mouth. A ctive Insulin Glargine (BASAGLAR KWIKPEN) 100 UNIT/ML injection pen 0 Active Unifine Pentips 32G X 4 MM misc 0 Active Accu-Chek Chiquis Plus test strip USE FOR DIABETIC TESTING ONCE DAILY 2 Active acetaminophen (TYLENOL) 500 MG tablet Take 2 tablets by mouth As Needed. Active clobetasol propionate (TEMOVATE) 0.05 % cream Apply 1 Application topically to the appropriate area as directed As Needed. 5 Active clopidogrel (PLAVIX) 75 MG tablet Take 1 tablet by mouth Daily. Active hydroCHLOROthi azide 12.5 MG tablet Take 1 tablet by mouth Every Morning. Active Insulin Degludec FlexTouch 100 UNIT/ML solution pen-injector INJECT 80 UNITS SUBCUTANEOUSLY EVERY DAY 5 Active Insulin Glargine-yfgn 100 UNIT/ML solution pen-injector INJECT 80 UNITS SUBCUTANEOUSLY EVERY DAY AT BEDTIME 5 Active methylcellulos e (Citrucel) oral powder Take by mouth As Needed. Active RABEprazole (ACIPHEX) 20 MG EC tablet Take 1 tablet by mouth Daily. 4 Active Trulicity 4.5 MG/0.5ML solution auto-injector INJECT 4.5mg SUBCUTANEOUSLY WEEKLY Active nortriptyline (PAMELOR) 50 MG capsule Take 1 capsule by mouth Daily. 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, estrogen receptor positive 05/30/2017 Cancer Staging:Clinical: Unsigned Pathologic stage from 05/30/2017:Stage IA(T1b, N0, cM0) - Signed by Lyric Rodgers MD on 05/30/2017 Eczema 12/23/2015 Obstructive sleep apnea syndrome 06/26/2015 LUKE positive 05/13/2015 Encounters Date Type Department Care Team Description 07/09/2025 11:30 AM EST Office Visit [facility] [address] [facility] [address] [place] [address] Radha Hernandez APRN Malignant neoplasm of lower-outer quadrant of right breast of female, estrogen receptor positive (Primary Dx); Abnormal mammogram; Encounter for breast cancer screening using non-mammogram modality 07/09/2025 Travel 06/26/2025 Telephone [facility] [address] [facility] [address] [place] [address] Radha Hernandez APRN APRN [facility] - SAME DAY CANCEL 06/12/2025 10:21 AM EDT - 06/12/2025 11:59 PM EDT Hospital Encounter [facility] MRI AT [address] [id number] Estefany Chou MD Breast pain Discharge Disposition: Home or Self Care 06/12/2025 Travel from Last 3 Months Family History Medical History Relation Name Comments Prostate cancer Father Breast cancer Maternal Aunt Diabetes Mother Heart disease Mother BRCA 1/2 Neg Hx Endometrial cancer Neg Hx Ovarian cancer Neg Hx Relation Name Status Comments Father Maternal Aunt Mother 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 Tobacco Use Types Packs/Day Years Used Date Smoking Tobacco: Never Smokeless Tobacco: Never Tobacco Cessation:Counseling Given: Not Answered Alcohol Use Standard Drinks/Week Comments Yes 3 [...] Sign Reading Time Taken Comments Blood Pressure 155/76 06/29/2024 10:51 AM EDT Pulse 62 06/29/2024 10:51 AM EDT Temperature 36.8 C (98.2 F) 06/29/2024 10:51 AM EDT Respiratory Rate 18 06/29/2024 10:51 AM EDT Oxygen Saturation 99% 06/29/2024 10:51 AM EDT Inhaled Oxygen Concentration - - Weight 78 kg (172 lb) 07/09/2025 11:47 AM EST Height 175.3 cm (5' 9.02 ) 07/09/2025 11:[address] Body Mass Index 25.39 07/09/2025 11:47 AM EST Plan of Treatment Upcoming Encounters Date Type Department Care Team (Late st Contact Info) Description 07/09/2026 11:30 AM EST Office Visit [facility] [address] [facility] [address] [place] [id number] Radha Hernandez APRN [address] [facility] [place] [address] Health Maintenance Due Date Last Done Comments DIABETIC FOOT EXAM 1960 URINE MICROALBUMIN-CREATININ E RATIO (uACR) 1958 TDAP/TD VACCINES (1 - Tdap) 1967 COLOGUARD 1993 COLON CANCER SCREENING 5 YEA R SIGMOIDOSCOPY 1993 COLONOSCOPY [address] CANCER SCREENING 1993 CT COLONOGRAPHY 1993 FECAL OCCULT BLOOD TEST 1993 FIT Testing (1 year) 1993 HEPATITIS C SCREENING 04/21/2017 DIABETIC EYE EXAM 12/08/2021 12/08/2020 RSV Vaccine - Adults (1 - 1- dose 75+ series) 2023 ANNUAL WELLNESS VISIT 09/22/2023 09/22/2022 , 07/08/2021, 02/25/2020 HEMOGLOBIN A1C 10/15/2023 04/14/2023, 12/27, 01/10/2023, Additional history exists INFLUENZA VACCINE 03/29/2025 07/04/2024, , 06/10/2023, Additional history exists COVID-19 Vaccine (2024-09 6 season) 2025 10/07/2023, 06/10/2021, 10/21/2020, Additional history exists DXA SCAN 04/15/2027 04/15/2025, 10/28, 11/19/2021, Additional history exists ZOSTER VACCINE Completed 12/30/2020, 10/2019, 01/07/2016 Pneumococcal Vaccine 50+ Completed 04/04/2025 MAMMOGRAM Discontinued 06/14/2025, 09/2024, 04/06/2024, Additional history exists Medical Devices Implanted Type Area Health Outreach Worker Device Identifier Shelf Expiration Date Model / Serial / Lot Mesh Phasix St Rectg 3x4in Ca/1ea - [id number] Implanted:Qty : 1 on 02/06/2019 by Justin Tran MD at [facility] Implant N/A: Esophagus DAVOL (DIV OF [employer]) 10/26/2020 [id number] / / [id number] Reload Hornbeak Flex Gst Reg 3.6mm Issa - [id number] Implanted:Qty : 1 on 02/06/2019 by Justin Tran MD at [facility] Implant N/A: Abdomen [employer] DIV OF J AND J [id number] / / [id number] Procedures Procedure Name Priority Date/Time Associated Diagnosis Comments MRI BREAST BILATERAL SCREENING W WO CONTRAST Routine 06/12/2025 12:00 PM EDT Breast pain MAMMO DIAGNOSTIC DIGITAL TOMOSYNTHESIS BILATERAL W CAD Routine 02/27/2025 2:35 PM EDT Breast pain DEXA BONE DENSITY AXIAL Routine 11/19/2021 2:53 PM EDT Malignant neoplasm of lower-outer quadrant of right breast of female, estrogen receptor positive Age-related osteoporosis without current pathological fracture from Last 3 Months or Most Recently Relevant to Health Maintenance Results * MRI Breast Bilateral Screening With & Without Contrast (06/12/2025 12:00 PM EDT) Anatomical Region Laterality Modality Breast Bilateral Magnetic Resonan ce 06/14/2025 3:00 PM EDT Impressions 06/14/2025 3:15 PM EDT Stable benign intermediate risk screening breast MRI. BI-RADS CATEGORY: 2, BENIGN The patient is a candidate to continue with annual intermediate risk screening breast MRI. 06/14/2025 3:[address] Kaycee Peña MD on Narrative 06/14/2025 3:15 PM EDT BILATERAL BREAST MRI WITH CONTRAST CLINICAL HISTORY: [...] images were also obtained. A CAD system (WatchD[employer]) was utilized for data analysis. The patient [...] This is consistent with an hepatic cyst. us Estefany Chou MD IMG MRI ORDERABLES Final Re sult * Mammo Diagnostic Digital Tomosynthesis Bilateral With CAD (02/27/2025 2:35 PM EDT) Anatomical Region Laterality Modality Breast Bilateral Mammography 02/27/2025 3:31 PM EDT Impressions 02/27/2025 3:34 PM EDT Stable mammographic appearance of both breast including [...] of concern indicated by the patient. A la posta marker is placed over a visible skin lesion. A linear marker indicates a scar. 02/27/2025 3:[address] Kaycee Peña MD on Narrative 02/27/2025 3:34 PM EDT BILATERAL DIAGNOSTIC MAMMOGRAM WITH TOMOSYNTHESIS AND A [...] are seen. No axillary abnormality is identified. Procedure Note Kayece Peña MD - 03/13/2025 BILATERAL DIAGNOSTIC MAMMOGRAM WITH TOMOSYNTHESIS AND A [...] are seen. No axillary abnormality is identified. IMPRESSION: Stable mammographic appearance of both breast including [...] of concern indicated by the patient. A la posta marker is placed over a visible skin lesion. A linear marker indicates a scar. 02/27/2025 3:[address] Kaycee Peña MD on Estefany Chou MD IM MAMMOGRAPHY ORDERABLES Final Result * DEXA Bone Density Axial (11/19/2021 2:53 PM EDT) Anatomical Region Laterality Modality Wrist, Hip, L-spine N/A Other 11/19/2021 4:03 PM EDT Impressions 11/19/2021 4:29 PM EDT Osteopenia of the left femoral neck. The ten year fracture risk assessment is calculated at 25% for major systemic osteoporotic fracture and 4.9% for a hip fracture. Less than 3% risk in the [place] for hip fracture and less than 20% risk of any systemic osteoporotic fracture is considered less than the threshold for where pharmacological therapy is recommended by the National Osteoporosis Foundation. All the treatment decisions require clinical judgment and consideration of individual patient factors, including patient preferences, co-morbidities, previous drug use, risk factors not captured in the FRAX model (frailty, falls, vitamin D deficiency, increased bone turnover, interval significant decline in bone density) and possible under or over estimation of fracture risk by FRAX. Approaches to reduce osteoporosis related fracture risk include optimizing calcium and vitamin D status, appropriate weight bearing exercises and fall-prevention measurements. The National Osteoporosis Foundation recommends (http://www.nof.org/hcp/practice/ztcvcmkr-ens-yaelhfrm-guidelines/clinic ans-guide) that FDA-approved medical therapies be considered in postmenopausal women and men aged equal or greater than 50 years with : a) hip or vertebral (clinical or morphometric) fracture; b) T-score of -2.5 or less at the spine or hip; c) Ten-year fracture probability by FRAX of greater than 3% for hip fracture of greater than 20% for major osteoporotic fracture. Secondary causes of bone loss should be evaluated if clinically indicated since the etiology of low BMD cannot be determined by BMD measurement alone. FOLLOWUP: Consider repeating the study in 2-3 years to reassess the patient's status or sooner if there is some new clinical indication. INTERVAL CHANGE: There was an increase in bone mineral density of the L1-L4 vertebrae by 0.2%, and a decrease in bone mineral density of the total left hip by 0.4% when compared to previous study performed on 02/12/2020. At this facility, the least significant change in the BMD at the left hip with 95% confidence is 0.538937 gm/cm2 at the hip and 0.553742 g/cm2 at the lumbar spine. This report was finalized on 11/19/2021 4:29 PM by Cullen Fish MD. Narrative 11/19/2021 4:29 PM EDT DUAL-ENERGY X-RAY ABSORPTIOMETRY (DXA) INDICATION: Postmenopausal, screening for osteoporosis, history of glucocorticoids, prior fracture, cancer COMPARISON: Previous bone mineral density exam performed on 02/12/2020 PROCEDURE: A DXA scan was performed using a Hologic densitometer. The lumbar spine L1-L4 was evaluated as well as left total hip. The T-score compares the patient's bone mineral density with the peak bone mass of young normal patients. According to criteria established by the World Health Organization, patients with T-scores between 1.0 and 2.5 standard deviations BELOW the mean are osteopenic (low bone mass). Patients with T-scores EQUAL TO OR GREATER than 2.5 standard deviations below the mean are osteoporotic. The Z-score compares the patient bone mineral density with age and sex matched peers. According to the International Society for Clinical Densitometry's 2007 consensus conference: In women prior to menopause and men less than age 50, Z-scores, not T-scores are preferred. A Z-score of -2.0 or lower is defined as below the expected range for age and a Z-score above -2.0 is within the expected range for age. The WHO diagnostic criteria may be applied in women in the menopausal transition. Osteoporosis cannot be diagnosed in men under age 50 on the basis of BMD alone. TECHNICAL QUALITY: The study is of good technical quality. RESULTS: Lumbar Spine: The BMD measured in the L1-L4 region is 1.020 g/cm2. The average T-score is -0.2. The Z-score is 2.1. Total Hip: The BMD measured at the left total proximal femur is 0.880 g/cm2. The T-score is -0.5. The Z-score is 1.2. Femoral Neck: The BMD measured at the left femoral neck is 0.690 g/cm2. The T-score is -1.4. The Z-score is 0.6. Procedure Note Sherie Morin PA - 11/19/2021 DUAL-ENERGY X-RAY ABSORPTIOMETRY (DXA) INDICATION: Postmenopausal, screening for osteoporosis, history of glucocorticoids, prior fracture, cancer COMPARISON: Previous bone mineral density exam performed on 02/12/2020 PROCEDURE: A DXA scan was performed using a Hologic densitometer. The lumbar spine L1-L4 was evaluated as well as left total hip. The T-score compares the patient's bone mineral density with the peak bone mass of young normal patients. According to criteria established by the World Health Organization, patients with T-scores between 1.0 and 2.5 standard deviations BELOW the mean are osteopenic (low bone mass). Patients with T-scores EQUAL TO OR GREATER than 2.5 standard deviations below the mean are osteoporotic. The Z-score compares the patient bone mineral density with age and sex matched peers. According to the International Society for Clinical Densitometry's 2007 consensus conference: In women prior to menopause and men less than age 50, Z-scores, not T-scores are preferred. A Z-score of -2.0 or lower is defined as below the expected range for age and a Z-score above -2.0 is within the expected range for age. The WHO diagnostic criteria may be applied in women in the menopausal transition. Osteoporosis cannot be diagnosed in men under age 50 on the basis of BMD alone. TECHNICAL QUALITY: The study is of good technical quality. RESULTS: Lumbar Spine: The BMD measured in the L1-L4 region is 1.020 g/cm2. The average T-score is -0.2. The Z-score is 2.1. Total Hip: The BMD measured at the left total proximal femur is 0.880 g/cm2. The T-score is -0.5. The Z-score is 1.2. Femoral Neck: The BMD measured at the left femoral neck is 0.690 g/cm2. The T-score is -1.4. The Z-score is 0.6. IMPRESSION: Osteopenia of the left femoral neck. The ten year fracture risk assessment is calculated at 25% for major systemic osteoporotic fracture and 4.9% for a hip fracture. Less than 3% risk in the [place] for hip fracture and less than 20% risk of any systemic osteoporotic fracture is considered less than the threshold for where pharmacological therapy is recommended by the National Osteoporosis Foundation. All the treatment decisions require clinical judgment and consideration of individual patient factors, including patient preferences, co-morbidities, previous drug use, risk factors not captured in the FRAX model (frailty, falls, vitamin D deficiency, increased bone turnover, interval significant decline in bone density) and possible under or over estimation of fracture risk by FRAX. Approaches to reduce osteoporosis related fracture risk include optimizing calcium and vitamin D status, appropriate weight bearing exercises and fall-prevention measurements. The National Osteoporosis Foundation recommends (http://www.nof.org/hcp/practice/jmntzfej-hxw-vmwhrovt-guidelines/clinic ans-guide) that FDA-approved medical therapies be considered in postmenopausal women and men aged equal or greater than 50 years with : a) hip or vertebral (clinical or morphometric) fracture; b) T-score of -2.5 or less at the spine or hip; c) Ten-year fracture probability by FRAX of greater than 3% for hip fracture of greater than 20% for major osteoporotic fracture. Secondary causes of bone loss should be evaluated if clinically indicated since the etiology of low BMD cannot be determined by BMD measurement alone. FOLLOWUP: Consider repeating the study in 2-3 years to reassess the patient's status or sooner if there is some new clinical indication. INTERVAL CHANGE: There was an increase in bone mineral density of the L1-L4 vertebrae by 0.2%, and a decrease in bone mineral density of the total left hip by 0.4% when compared to previous study performed on 02/12/2020. At this facility, the least significant change in the BMD at the left hip with 95% confidence is 0.627202 gm/cm2 at the hip and 0.802196 g/cm2 at the lumbar spine. This report was finalized on 11/19/2021 4:29 PM by Cullen Fish MD. Fernanda Lynn MD IMG DXA ORDERABLES Final Result from Last 3 Months or Most Recently Relevant to Health Maintenance Insurance MEDICARE A & B [facility] HEALTH CARE OPTIONS Advance Directives Documents on File Type Date Recorded Patient Adjunct Faculty Instructor Expl anation LIVING WILL - SCAN 12/24/2021 5:04 AM [place] AMOR WILL DIRECTIVE PATIENT ADVANCE DIRECTIVES - SCAN 12/24/2021 5:03 AM APPOINTMENT OF [facility] CARE SURROGATE * CPR (Attempt to Resuscitate) (Latest Code Status on File) Date Activated Date Inactivated Comments 03/05/2019 3:02 PM 03/07/2019 1:27 PM Question Answer Comments Code Status (Patient has no pulse and is not breathing): CPR (Attempt to Resuscitate) Medical Interventions (Patie nt has pulse or is breathing): Full * CPR (Attempt to Resuscitate) Date Activated Date Inactivated Comments 02/06/2019 1:43 PM 02/08/2019 3:46 AM Question Answer Comments Code Status (Patient has no pulse and is not breathing): CPR (Attempt to Resuscitate) Medical Interventions (Patie nt has pulse or is breathing): Full Care Teams Equal Opportunity Assistant Relationship Specialty Start Date End Date Graham Jose MD [facility] [address] [facility] [place] [id number] PCP - General 12/08/15
--- OUTSIDE RECORDS SUMMARY | 2025-08-16 15:54 | XMS_ITS | Clinical Summary ---
Author Organization [facility] Address [facility] [place] [address] Care Team Providers Care Private Pilot Name Role Phone Graham Jose MD Primary Care Provider + [phone] Source Comments This information has been disclosed [...] therelease of HIV test results or diagnoses. [id number] Allergies Active Allergy Reactions Criticality Noted Date [...] (MyChart) 07/13/2023 01/10/2023 Immunization: COVID-19 ( season) 2025 06/11/2021, 06/10/2021, 10/21/2020, Additional history exists Immunization: [...] - 5.6 % 01/11/2023 4:37 AM EDT [facility] Comment: Hemoglobin A1c Interpretation Guidelines: [...] MD LAB BLOOD ORDERABLES Final Resul t [facility] [address] [place] [address], [facility] from Last 3 Months or Most Recently Relevant to Health Maintenance Insurance [facility] MEDICARE A AND B Care Teams Private Pilot Relationship Specialty Start Date End Date Graham Jose MD [address] [place] [address] [place] [id number] PCP - General Internal Medicine 08/04/22
--- OUTSIDE RECORDS SUMMARY | 2025-08-16 15:54 | XMS_ITS ---
Author Organization [facility] Address [address] [place] [id number] Care Team Providers Care Appliance Installer Name Role Phone Graham Jose MD Primary Care Provider [phone] Active Problems Problem Noted Date Diagnosed Date [...] sleep apnea syndrome 06/26/2015 LUKE positive 05/13/2015 Current Treatment and Therapy Plans No current plan information found. Past Treatment and Therapy Plans No past plan information found. Treatment Summaries Malignant neoplasm of lower-outer quadrant of right breast of female, estrogen receptor positive* Breast Cancer Survivorship Plan General Information Patient name Candace Bryant Date of 1950 Phone Email No e-mail address on record Cancer Treatment Team Patient Care Team: Damien Farley MD as Referring Physician (General Surgery) Lyric Rodgers MD as Consulting Physician (Radiation Oncology) Damien Farley MD as Consulting Physician (General Surgery) Provider Phone numbers Care Team Provider: Graham Jose MD, ([phone]) Care Team Provider: Damien Farley MD, ([phone]) Care Team Provider: Lyric Rodgers MD, ([phone]) Care Team Provider: Damien Farley MD, ([phone]) Post Treatment Care Team Primary Care Physician Graham Jose MD [address] [facility] [address] [place] [address] Background Information Medical history Past Medical History: Diagnosis ??? Allergic rhinitis ??? Cataract ??? Chondrocalcinosis ??? Chondrocalcinosis ??? Constipation ??? Diabetes mellitus ??? Fibromyalgia ??? GERD (gastroesophageal reflux disease) ??? Graves disease ??? Clarence's disease ??? High cholesterol ??? History of stomach ulcers ??? Hypertension ??? Malignant neoplasm of lower-outer quadrant of right breast of female, estrogen receptor positive ??? Migraines ??? Mitral valve prolapse ??? Neuropathy ??? Sleep apnea USES cpap Surgical history Past Surgical History: Procedure ??? BREAST BIOPSY Multiple since age 22 ??? BREAST CYST EXCISION jaci ??? CARPAL TUNNEL RELEASE ??? COLONOSCOPY ??? DILATATION AND CURETTAGE ??? ELBOW PROCEDURE TENDON REPAIR AND ALSO SYNOVIAL OVERGROWTH REMOVAL ??? KNEE ARTHROSCOPY ??? KNEE CARTILAGE SURGERY ??? GARCÍA'S NEUROMA EXCISION ??? GARCÍA'S NEUROMA EXCISION ??? NASAL SEPTUM SURGERY ??? KAITLIN FUNDOPLICATION ??? PLANTAR FASCIECTOMY LT FOOT FASCIECTOMY ??? SHOULDER ROTATOR CUFF REPAIR ??? SHOULDER SURGERY IMPINGEMENT REPAIR ??? TONSILLECTOMY ??? TRIGGER FINGER RELEASE ??? TUBAL ABDOMINAL LIGATION Tobacco use History Smoking Status ??? Never Smoker Smokeless Tobacco ??? Never Used Family oncology history Cancer-related family history includes Breast cancer (age of onset: 55) in her maternal aunt; Prostate cancer in her father. Oncology Information Malignant neoplasm of lower-outer quadrant of right breast of female, estrogen receptor positive 04/12/2017 Biopsy Right breast mass 05/20/2017 Surgery Surgery Procedure: Lumpectomy Location: Right breast Completeness of resection: No evidence of residual tumor 05/30/2017 Initial Diagnosis Malignant neoplasm of lower-outer quadrant of right breast of female, estrogen receptor positive 05/31/2017 - Hormonal Therapy Arimidex 06/23/2017 - 07/13/2017 Radiation Radiation OncologyTreatment Course: Candace Bryant received 4005 cGy in 15 fractions to right breast via External Beam Radiation - EBRT. Complications during Therapy: No concerns stated Modification to Treatment Plan: No Modifications Lifetime Dose Tracking: No doses have been documented on this patient for the following tracked chemicals: Doxorubicin, Epirubicin, Idarubicin, Daunorubicin, Mitoxantrone, Bleomycin, Mitomycin, Doxorubicin Liposomal Disease Status at Completion of Primary Therapy: Complete Clinical Response / No Evidence of Disease Persistent Treatment-Associated Adverse Effects at Completion of Therapy It is important to recognize that not every person experiences the following adverse events after treatment. You may not have any of these issues, a few or many adverse effects. Experiences are highly variable. Please discuss any adverse effects of cancer treatment with your cancer care team. After Surgical Therapy Breast Conserving Surgery (Lumpectomy) Breast conserving surgery (lumpectomy) involves the removal of the breast mass (cancer lump) and a surrounding area of normal tissue. After surgery, there may be pain and soreness in the chest, underarm or shoulder which should get better over time. Nerves may be damaged in the breast and areas of lymph node removal which may result in numbness and other changes in sensation. Ask your doctor or nurse if you have issues with pain, numbness or tingling, or any changes in function or mobility. Breast conserving surgery allows women to keep their breast but the breast may look different than it did before surgery. The breast may be smaller and may be different in size and shape. There will be a scar from the surgery and scar tissue may feel different. Radiation therapy can also affect theway the breast looks and feels. How you think and feel about your body is important and coping withchanges after breast surgery takes time. It's important to look at your scar, which should become less red and swollen over time. It's important to touch your scar, too. Your physician may give you instructions about massaging the scar to help with healing and to soften scar tissue. If you have a partner, let your partner look at and feel the scar when you're ready. Working through feelings aboutthe cancer and changes as a result of surgery may take time and support. Talk with your doctor or nurse about any issues with body image and coping. Survivors of breast cancer should speak with their health care provider regarding the possibility of a genetic or family syndrome. If there does appear to be a family history or possible genetic syndrome, genetic counseling and testing may be recommended. [place] Node Biopsy Removal of the sentinel lymph node is the removal of the first lymph node to which cancer cells aremost likely to spread. After surgery, there may be pain and soreness in the area where the node wasremoved. Nerves may be damaged which may result in numbness or other changes in sensation. While sentinel node biopsy (as opposed to a lymph node dissection where more lymph nodes are removed) decreases the risk of developing lymphedema, the risk is not completely gone. Lymphedema Removal of lymph nodes can slow the normal flow of lymph in the area which can lead to swelling in that limb, also called lymphedema. Survivors who also received radiation therapy to the area where alymph node was removed may be at increased risk of developing lymphedema. In some cases, the lymphedema can occur years after cancer therapy was completed. Lymphedema can cause pain or discomfort, disfigurement, change in function, and increased risk of infection in the affected area and closest limb. Signs of lymphedema can include a feeling of fullness or heaviness, changes in the skin (red, thick, stiff), aching, tightness, and difficulty moving or flexing nearby joints. Other signs could be that your jewelry or clothes, like socks, pants or sleeves, may begin to feel tight on the affectedlimb. As signs of lymphedema could develop months or years after treatment, continue to monitor forsigns and notify your doctor. Several steps can be taken to help prevent and control lymphedema. Survivors should protect the potentially affected limb by avoiding cuts, scrapes, valdez, insect bites, shots/vaccines, blood draws, and IV sticks in order to decrease the risk of developing an infection in the limb. In addition, thesurvivor should protect the limb from the sun to avoid sunburn. Lastly, survivors should avoid tight clothing and jewelry, and blood pressures in the affected limb that might further slow the normal flow of lymph. Survivors of cancer, including those at risk for lymphedema, can and should exercise. Survivors should start slow and gradually increase intensity while monitoring your limb for changes in swelling or redness. If either occurs, stop exercising and notify your doctor for further direction. After Chemotherapy No chemotherapy received. After Radiation Therapy Radiation therapy can cause early and late side effects. Early side effects are those that happen during or shortly after treatment and are usually gone within a few weeks after treatment ends. Late side effects may take months or years to develop and vary depending on the areas of the body included in the field of radiation and the radiation techniques that were used. The most common early side effects are fatigue (feeling tired) and skin changes. Other early side effects are usually related to the area being treated. If you continue to have some skin problems after treatment ends, be gentle with the skin in the treatment area until all signs of irritation are gone and continue to care for your skin as your doctors and nurses have advised. If you continue to have fatigue, you may need to plan your activities to maximize energy, get extra rest while your bodyis still recovering and follow other instructions from your doctors and nurses such as exercise andactivity. ocean transportation intermediary effects of radiation therapy vary greatly depending on the areas included in the field ofradiation and the radiation techniques that were used. Breast tissue exposed to radiation may become more firm over time and you may notice changes in the size and shape of the breast. The skin wherethe breast was treated may have a different coloration, be more red or appear tanned. If the lymph nodes under the arm (axillary nodes) were in the radiation field, there may be an increased risk of developing lymphedema. Lymphedema is a condition in which fluid collects in the arm or other areas such as the hand, fingers, chest or back and cause swelling. In rare cases, radiation therapy can increase the risk of a second cancer. Ask your doctors and nurses about the risk of residential effects. Keep your follow up appointments and keep up with recommended health screenings Hormone Therapy Hormones, like estrogen and progesterone, are naturally produced in the body. Typically these hormones help our body function in various ways, however, in some cases these hormones can also cause cancer to grow. When your cancer is positive for hormone receptors, your doctor may recommend hormone therapy. Hormone therapy works by either blocking the effects of the hormone on the cancer cell, or by reducing the amount of hormone produced by the body. In doing so, the cancer cells no longer receive or use the hormone to grow. It is very important for you to take the medicine as prescribed by your doctor and keep your regular follow-up appointments. Some medications interfere with hormone therapy medications, so be sure and discuss all medications that you take with your doctor. Common side effects women experience from hormone therapy includes hot flashes, vaginal dryness, and lack of a period in women who have not yet reached menopause. Some less common but serious side effects of hormone therapy may include increased risk for blood clots, joint pain, bone loss, weakness, mood changes, nausea, fatigue, and loss of interest in sexual activity, endometrial and uterine cancers, risk for stroke, heart attack, angina , and heart failure. Share with your doctor the side effects you experience so a plan can be made to minimize the effects. In addition, these medications will be taken long-term, in some cases 5-10 years. When taking oral hormone therapy, it may be helpful to create a calendar, use a pillbox, or set an alarm on your watch or phone to remind you daily to take the medication. Pt will continue Anastrozole for at least 5 years Care of your Venous Access Device No Venous Access Device currently in place General After Cancer Treatment It is not uncommon for cancer to impact other areas of your life such as relationships, work and mental health. If you develop financial concerns, resources are sometimes available to assist in theseareas. Depression and anxiety can present either during or after cancer diagnosis and treatment. Itis important to discuss with your physician any of these concerns so these resources can be made available to you. General Cancer Support & Resources [facility] [address], [address] [place] [address] Med Onc: Artificial Intelligence Specialist Onc: Scorer Single: Kaycee Barros - Psychiatric Nurse Practitioner: Shira Loera APRN - [phone] Kick It! (A free smoking cessation program) Financial Counselor and Contact Information: [facility] Financial Counseling - Appeals Board Referee Contact Information: Yun Pak - [phone] Wound Ostomy & Continence Nurse: Local Cancer Support Group and Contact Information: Shane Davis ([facility]) Yoga for Cancer Patients: Mondays and Wednesdays @ 10AM Shane offers a free 1 month membership to cancer patients Look Good Feel Better: A non-medical, brand-neutral public service program that teaches beauty techniques to people with cancer to help them manage the appearance-related side effects of cancer treatment. The program includes lessons on skin and nail care, cosmetics, wigs and turbans, accessories and styling, helping people with cancer to find some normalcy in a life. - See more at: http://lookgoodfeelbetter.org Journey Toward Empowerment - for Women with Cancer: ([facility]) The Tools and encouragement you need to live your life to the fullest. Free Dinner served @ 6:00pm followed by speaker from 6:30 - 7:30pm. The series runs from May, and meets monthly. Call Christina Gann RN, OCN @ to receive information and upcoming schedule. [place] [facility]: This support group is open to anyone that has been diagnosed with cancer of any type. Meets at 6:30pm on the last Tuesday of each month. Location: [facility]; [address] [place] [address]. For more information call Nemo Sahu @ . Breast Cancer Support & Resources Local Cancer Support Groups and Contact Information: [place] ([place]): Breast Cancer Support group. Meets the Tuesday of each at various locations. Please Call Tonny Rolon for meeting information @ [phone] or Brinda Horton @ [phone]. The Journey: Breast Cancer Support Ministry: Meets the Tuesday of each month, 5:00PM @ [place], [place]. Please call Nia Multani at [phone] for additional information. Reach To Recovery: An [employer] peer support group for women with a concern about breast cancer. Patentscan talk with volunteer breast cancer survivors, in person or over the phone, for support & encouragement. Also, after you have completed your journey and would like to give back, you can call the [phone] number to volunteer as a survivor and support to others. For additional information, please call [phone] or go to sss.cancer.org. Surveillance How Frequent? Medical Oncology visits 1 - 4 times per year as clinically appropriate for 5 years, then annually Lab tests Imaging exams Mammography Every 12 months Lymphedema Monitor for lymphedema Genetic Counseling Periodic screening for changes in family history and referral to genetic counseling as indicated Gynecologic assessment For women on tamoxifen, gynecologic assessment every 12 months if uterus is present. Bone Density study For women on aromatase inhibitor or who experience ovarian failure secondary to treatment should have monitoring of bone health and bone mineral density determination at baseline and periodically thereafter Immunizations Influenza Herpes Zoster Pneumococcal Yearly Once As appropriate Tobacco Cessation The patient is not currently a tobacco user. Counseling given: Not Answered Monitor for ongoing toxicities: None Specified Call your doctor if you have any of these signs or symptoms Pain that is new, unrelieved or bothersome. Difficulty with your emotions, anxiety, and/or depression. Physical problems that affect your abilities in your daily life or those that are bothersome (for example, continued fatigue, trouble sleeping, sexual problems, or edema). Referrals provided There are no referral needs at this time. Self Care Plan Self Care Plan: What You Can Do to Stay Healthy after Treatment for Cancer Cancer treatments may increase your chance of developing other health problems years after you havecompleted treatment. The purpose of this self care plan is to inform you about what steps you can take to maintain good health after cancer treatment. Keep in mind that every person treated for cancer is different and that these recommendations are not intended to be a substitute for the advice of a doctor or other health dog daycare provider. Please use these recommendations to talk with your health care provider about an appropriate follow up care plan for you. Surveillance for Your Cancer Recommendation Frequency Comments Cancer surveillance visit with medical provider that is focused on detecting signs of recurrence ofyour cancer. For additional information, visit www.livestrong.org or www.cancer.net/patient/Survivorship Frequency depends on type and stage of cancer you had. (If you had a higher risk cancer, you may be seen more often). Your doctor has provided you with a personalized cancer treatment summary and survivorship care plan. If you need another copy, ask your doctor. General Cancer Screening for Women Cancer screening tests are designed to find cancer or pre-cancerous areas before there are any symptoms and, generally, when treatments are most successful. Various organizations have developed guidelines for cancer screening for women. While these guidelines vary slightly between different organizations, they cover the same basic screening tests for breast, cervical and colorectal cancers. In addition, during routine health examinations (at any age) your health care provider may also evaluate for cancers of the skin, mouth and thyroid. Not all screening tests are right for everyone. Your personal and family cancer history, and/or the presence of a known genetic predisposition, can affect which tests are right for you, and at what age you begin them. Therefore, you should discuss these with your health care provider. Your care plan will also include a section on follow up care foryour type of cancer, and these recommendations override the general screening recommendations for that particular type of cancer in the general population. The [place] [employer] (ACS) recommends these screening guidelines for women: Recommendation Frequency Comments Breast Cancer Screening For more information, see the ACS document Breast Cancer: Early Detection. www.cancer.org/ssLINK/qdhoqy-vagbvo-tzkfc-detection-jenifer ?? Yearly mammograms starting at age 40, and continuing for as long as a woman is in good health. ?? Clinical breast exam (CBE), performed by a health dog daycare provider, every three years for womenin their 20s and 30s, and every year for women 40 and over. ?? A monthly breast self-exam (BSE) is a good way to monitor breast health. Women should know how their breasts normally look and feel, and report any change promptly to their health care provider. The ACS recommends that some women - because of their family history, a genetic tendency, or certain other factors - be screened with Magnetic Resonance Imaging (MRI) in addition to mammograms. The number of women who fall into this category is small (less than 2 percent of all [place] women). Talk withyour doctor about your personal history and whether you should have additional tests at an earlier age. Colon and Rectal Cancer Screening For more information see the ACS document Colorectal Cancer: Early Detection. www.cancer.org/ssLINK/sqytjwephn-lsbueh-jmodp-detection-jenifer Options for colon cancer screening can be divided into those that screen for both cancer and polyps, and those that just screen for cancer.Screening should begin at age 50 (unless you are considered high risk (see comments), using one of the following testing schedules: Tests that find polyps and cancer (Preferred over those that find cancer alone. If any of these tests are positive, a colonoscopy should be done.) ?? Flexible sigmoidoscopy every five years, or ?? Colonoscopy every 10 years, or ?? Double-contrast barium enema every five years, or ?? CT colonography (virtual colonoscopy) every five years Tests that primarily test for cancer ?? Yearly fecal occult blood test (FOBT)*, or ?? Yearly fecal immunochemical test (FIT) *, or ?? Stool DNA test (sDNA), interval uncertain* * The multiple stool take-home test should be used. One test done by the doctor in the office is not adequate. A colonoscopy should be done if the test is positive. Talk with your doctor about your medical history, and what colorectal cancer screening test and schedule is best for you. Individuals at higher risk of colon cancer should have screening earlier and potentially more frequently. Those at higher risk of colon and rectal cancer: ?? Individuals with a family history of colon or rectal cancer in a relative who was diagnosed before the age of 60 ?? Individuals with a history of polyps ?? Individuals with inflammatory bowel disease (Crohn's disease or ulcerative colitis) ?? Individuals with a genetic predisposition to colon or rectal cancer, such as hereditary non-polyposis colon cancer (HNPCC) syndrome or familial adenomatous polyposis (FAP) syndrome Cervical Cancer Screening For more information see the ACS document Cervical Cancer: Early Detection. www.cancer.org/.../wjkczotk-tvseml-itzenjkgzq-xqe-fhmyc-rabxgxtrt-jenifer Cervical cancer screening should not begin before age 21. Screening Pap tests should be performed every three years between age 21 and 29 ?? Women age 30 or older should be screened every 3 years with a Pap test or every five years with a combined Pap/Human Papillomavirus (HPV) test. ?? Women 65 years of age or older who have had negative consecutive screening in the preceding 10 years should discontinue screening. ?? Women who have had a total hysterectomy (removal of the uterus and cervix) should also stop having Pap tests, unless the surgery was done as a treatment for cervical cancer or pre-cancer. Women who have had a hysterectomy without removal of the cervix should continue to have Pap tests. ?? Women who have had a history of a serious cervical precancer should continue screening for at least 20 years, even if that extends screening past age 65. ?? Women who have been vaccinated against HPV should still follow these screening guidelines. Treatment for most gynecological cancers involves hysterectomy and alters recommendations for Pap tests. Refer to your personalized cancer treatment summary and survivorship care plan to see what the Pap test recommendations are for you. If you need another copy of your care plan, please ask your doctor. Sun Exposure and Skin Cancer Risk Skin cancer is the most commonly diagnosed type of cancer, and rates are on the rise. However, thisis one cancer that in most cases can be prevented or detected early. While you may hear that you need the sun to make vitamin D, in reality you only need a few minutes a day to do this. Exposure to ultraviolet (UV) rays, either by natural sunlight or tanning beds, can lead to skin cancer. In additio n, UV rays lead to other forms of skin damage, including wrinkles, loss of skin elasticity, dark patches (sometimes called age spots or liver spots), and pre- cancerous skin changes (such as dry, scaly, rough patches). Although dark- skinned people are less likely to develop skin cancer, they can anddo develop skin cancers, most often in areas that are not exposed to sun (on the soles of the feet,under nails, and genitals). You can do a lot to protect yourself from damaging UV rays and to detect skin cancer early. Start by practicing sun safety, including using a broad spectrum sunscreen (which protects against UVA and UVB rays) with an SPF of at least 30 every day, avoiding peak sun times (10 a.m. to 4 p.m., when therays are strongest) and wearing protective clothing such as hats, sunglasses and long- sleeved shirts. Examine your skin regularly so you become familiar with any moles or birthmarks. If a mole has changed in any way, you should have a health care provider examine the area. This includes a change in size, shape or color; the development of scaliness, bleeding, oozing, itchiness or pain; or the development of a sore that will not heal. If you have a lot of moles, it may be helpful to make note of moles using photographs or a mole map . For a guide to performing a skin exam, visit www.skincarephysicians.com/skincancernet/skin_examinations.html. Healthy Lifestyle For some cancer survivors, the experience is the motivation to making healthy lifestyle changes. Itmay seem insignificant, but these changes have been shown to reduce the risk of the cancer coming back or a new cancer developing. Below are some tips on adopting a healthier lifestyle. Maintaining ahealthy weight is important in cancer prevention, as is physical activity and eating a healthy diet. Strive to incorporate all three pieces of the puzzle: healthy weight, balanced diet and regular exercise. Recommendation Goal Comments Maintain a healthy weight. For more information, visit http://www.nhlbi.nih.gov/health/public/heart/obesity/lose_wt/index.htm www.win.niddk.nih.gov Call the [place] [employer] ?? Talk to your health care team about what a healthy weight is for you, and take steps to reach and maintain that weight. ?? For many people reaching their ideal weight can be a challenge; however, losing even 5 to 10 pounds can lower blood pressure, blood sugar and cholesterol levels. ?? Weigh yourself weekly to monitor for weight gain/loss Being overweight can increase your chance of your cancer coming back. Maintaining a healthy weight, physical activity and eating a healthy diet are all important in cancer prevention. Being overweight can increase your chance of having high blood pressure, high blood sugar and/or high cholesterol, which can lead to heart disease, diabetes and stroke. If you would like more information about your blood sugar, cholesterol or blood pressure, talk with your primary care provider. Eat a healthy diet, mostly from plant sources. For more information, visit http://www.[employer] Biotechmyplate.gov/food-groups/ ?? Eat healthy, including plenty of fruits and vegetablesdaily. ?? Drink more water, less soda and juice. ?? Limit how much alcohol you drink (if you drink at all). Strive to have two- thirds of your plate be vegetables, fruits, whole grains and beans, while one- third or less should be an animal product. Choose fish and chicken and limit red meat and processed meats. Limit intake of alcohol to two drinks per day. Exercise. To learn more about recommendations for diet, activity and weight, visit AICR???s Guidelines for Survivors http://preventcancer.aicr.org/site/PageServer?pagename=patients_survivors_guidel chang ACS Eat Healthy and Get Active www.cancer.org/Healthy/EatHealthyGetActive/index ?? Experts recommend at least 30 minutes of pnmworkb-ib-bktrqwev activity per day, five days a week. Research shows that exercise can help you controlyour weight, improve your energy level, and help you sleep at night. The campbell is to find a physical activity you enjoy such as walking, dancing or gardening and do it regularly. If you have been inactive for a while, start out slowly. You can start out by exercising 10 minutes a day several days a week. If you feel dizzy, short of breath, or have chest pain during exercise, stop exercising and talk with your primary care doctor. Do not use tobacco in any form. For more information, visit http://www.cdc.gov/tobacco/campaign/tips/ ?? If you use tobacco, quit as soon as possible. Smoking is the most preventable cause of in the [place] If you would like more information, ask your doctor or you can call a national hotline at 5(110)-QUIT-NOW. Keep your bones healthy. For more information, visit www.niams.nih.gov/Health.../Bone/Bone_Health/bone_health_for_life For the FRAX (Fracture Risk Assessment) tool, visit: www.shef.ac.uk/FRAX/ , to estimate 10-year risks for fractures ?? Ask your primary care provider about screening for osteoporosis beginning at age 65 or at a younger age if your bone fracture risk isincreased. ?? The 10-year risk for osteoporotic fractures can be calculated for individuals by using the FRAX tool and could help to guide screening decisions for women younger than 65 years. ?? Maximize your bone health by eating healthy, getting enough calcium and vitamin D, and exercising regularly. Certain cancer treatments, such as chemotherapy or hormonal therapy, can cause bone loss. In addition, after menopause, women can lose up to 20 percent of their bone density. The good news is that women can maximize their bone density by eating healthy, getting enough calcium and vitamin D, and exercising regularly. Age (years) Calcium per day Vitamin D per day 19 to 49 1000 milligrams 600 units 50 or over 1200 milligrams 800 units ?? Have regular check-ups by a healthcare professional. For more information about healthy screening tests for men visit the U.S. Department of Health and Human Services. http://www.womenshealth.gov/oygzxhudk-pehnv-pca-vaccines/jwatliusu-ycnqo-jhv-men / For more information about adult vaccinations visit the CDC: http://www.cdc.gov/vaccines/recs/schedules/adult-schedule.htm ?? Keep up-to-date on general health screening tests, including cholesterol, blood pressure and glucose (blood sugar) levels. ?? Get an annual influenza vaccine (flu shot). ?? Get vaccinated with the pneumococcal vaccine, which prevents a type of pneumonia, and re-vaccinated as determined by your health care team. ?? Don???t forget dental and eye health! ?? The [place] [employer] recommends adults have their eyes examined every two years until age 60, then annually. People who wear glasses or corrective lenses or are at high risk for eye problems (i.e., diabetics, family history of eye disease) should be seen more frequently. ?? The [place] [employer] recommends adults see their dentist at least once a year. 13 No information on file. No information on file.
--- OUTSIDE RECORDS SUMMARY | 2025-08-16 15:54 | XMS_ITS | Encounter Summary ---
[facility] Address [address] [place] [id number] Care Team Providers Care Tooth Polisher Name Role Phone Graham Jose MD Primary Care Provider [phone] Encounter Details Date Type Department Care Team (Latest Contact Info) Description 07/09/2025 Travel 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 Tobacco Use Types Packs/Day [...] Description 07/09/2026 11:30 AM EST Office Visit [facility] [address] [phone] Radha Hernandez, DIRECTOR TRADING [address] [facility] [address] [place] [address] documented as of this encounter Visit Diagnoses Not on filedocumented in this encounter Additional Health Concerns Assessment Noted Time PHQ-2 Depression Total Score: 1 07/01/20 23 10:55 AM EDT documented as of this encounter Care Teams Tooth Polisher Relationship Specialty Start Date End Date Graham Jose MD [address] [place] [facility] [address] [facility] [address] [facility] [id number] PCP - General 12/08/15 documented as of this encounter
--- OUTSIDE RECORDS SUMMARY | 2025-08-16 15:55 | XMS_ITS | Clinical Summary ---
Author Organization [facility] ([place], [place], [place], [place], [place]) Address [address] [place] [address] Care Team Providers Care Obstetrics Gynecology Md Name Role Phone Graham Jose MD Primary Care Provider [phone] Allergies Active Allergy Reactions Criticality Noted Date [...] 1 spray by Nasal route as needed. 09/08/2023 Active eletriptan (RELPAX) 20 MG tablet Take 1 tablet (20 mg total) by mouth as needed. 09/15/2023 Active hydroCHLOROthia zide (HYDRODIURIL) 12.5 MG tablet Take 1 tablet (12.5 mg total) by mouth daily. 08/30/2023 Active losartan (COZAAR) 50 MG tablet Take 1 tablet (50 mg total) by mouth 2 (two) times daily. 10/19/2023 Active propranoloL (INDERAL LA) 80 MG 24 hr capsule Take 1 capsule (80 mg total) by mouth daily. 10/27/2023 Active folic acid (FOLVITE) 400 MCG tablet Take 1 tablet (400 mcg total) by mouth daily. Active Missing or Non-Formulary Medication 2 fluid ounces by Nasal route as needed Felix's Solution-nasa l lavage. Active cyanocobalamin (VITAMIN B-12) 2000 MCG ER tablet Take 1 tablet (2,000 mcg total) by mouth daily. Active cholecalciferol , vitamin D3, 50 mcg (2,000 unit) Cap Take 1 capsule (2,000 Units total) by mouth daily. Active acetaminophen (TYLENOL) 500 MG tablet Take 2 tablets (1,000 mg total) by mouth every 6 (six) hours as needed for Pain. Active propranoloL (Inderal LA) 80 MG 24 hr capsule 1 capsule (80 mg total). Active propranoloL (INDERAL) 80 MG tablet Take 1 tablet (80 mg total) by mouth daily. Active Trulicity 4.5 mg/0.5 mL syringe 03/04/2025 Active zolpidem (AMBIEN CR) 12.5 MG CR tablet Take 1 tablet (12.5 mg total) by mouth. Active valerian root 500 mg cap Take by mouth. Active RABEprazole (ACIPHEX) 20 mg EC tablet TAKE 1 TABLET BY MOUTH ONCE DAILY FOR REFLUX. 01/10/2025 Active polyethylene glycol (GLYCOLAX) 17 gram packet Take 17 g by mouth daily. Active BD Ultra-Fine Tanya Insulin Pen Hanahan 4 mm x 32 G Inject under the skin. 01/20/2025 Active nitroglycerin (NITROSTAT) 0.[address] under the tongue. 11/28/2024 Active methylcellulose oral powder Take by mouth daily. Active insulin glargine-yfgn (SEMGLEE) 100 unit/mL (3 mL) pen Inject 80 Units under the skin nightly. 12/13/2024 Active clobetasoL (TEMOVATE) 0.05 % cream APPLY A THIN LAYER TO THE AFFECTED AREA(S) BY TOPICAL ROUTE 2 TIMES PER DAY 1-2 WEEKS UNTIL POISON ALEN RESOLVES 01/30/2025 Active Active Problems Problem Noted Date Diagnosed [...] Date Clifford rded Speak language other than Citizen [place] at home Not on file 11/08/2023 Want [...] Sign Reading Time Taken Comments Blood Pressure 136/73 04/02/2025 11:42 AM EDT Pulse 70 04/02/2025 11:42 AM EDT Temperature 36.6 C (97.8 F) 11/25/2023 10:05 AM EDT Respiratory Rate 20 11/25/2023 10:05 AM EDT Oxygen Saturation 98% 04/02/2025 11:42 AM EDT Inhaled Oxygen Concentration - - Weight 74.2 kg (163 lb 9.6 oz) 04/02/2025 11:42 AM EDT Height 175.3 cm (5' 9 ) 04/02/2025 11:42 AM EDT Body Mass Index 24.16 04/02/2025 11:42 AM EDT Plan of Treatment Upcoming Encounters Date Type Department Care Team (Late st Contact Info) Description 10/07/2025 1:00 PM EST Office Visit [facility] Neurology - [address] [place] [place] [phone] Ke Campbell MD [address] [place], [place] [id number] Health Maintenance Due Date Last Done Comments Diabetic Kidney Health Evalu ation (KED) 1948 Diabetic Eye Exam 1958 Depression Screening (12+) 1960 Hepatitis C Screening 1966 DTAP/TDAP/TD VACCINES (1 - Tdap) 1967 Pneumococcal 50+ years (1 of 2 - PCV) 1967 Medicare Initial AWV [id number] 04/30/2014 Respiratory Syncytial Virus (RSV) Adult or (1 - 1-dose 75+ series) 2023 Hemoglobin A1C 11/18/2023 Falls Risk Screening 08/29/2024 COVID-19 VACCINE (5 - 2024-2 6 season) 2025 10/07/2023, 06/10/2021, 10/21/2020, Additional history exists Influenza Vaccine (#1) 2025 , 06/10/2023, 07/13/2022, Additional history exists Tobacco Cessation Counseling and Screening (12+) 04/02/2026 04/02/2025 DXA SCAN 04/15/2027 04/15/2025 Shingles Vaccine (Zoster) Completed 2020, 07/31/2020, 01/07/2016 Breast Cancer Screening Discontinued 02/28/20 25, 10/13/2023, 09/03/2022, Additional history exists Procedures Procedure Name Priority Date/Time Associated Diagnosis Comments DXA BONE DENSITY SPINE AND HIP Routine 04/15/2025 11:35 AM EDT Postmenopausal from Last 3 Months or Most Recently Relevant to Health Maintenance Results * DXA bone density spine and hip (04/15/2025 11:35 AM EDT) Anatomical Region Laterality Modality Bone Dual-energy X-ra y absorptiometry (DEXA) 04/15/2025 12:0 9 PM EDT Impressions 04/15/2025 12:29 PM EDT 1. Normal BMD of the lumbar spine. No increased risk for fracture. 2. Osteopenia BMD of the left femoral neck. Intermediate risk for fracture. 3. Normal BMD of the distal radius. No increased risk for fracture. FRAX evaluation gives the risk of a major osteoporotic fracture over 10 years as 11.6% and the risk of a hip fracture as 2.4%. Images reviewed, interpreted, and dictated by Dr. Ihsan Velasco. Transcribed by Krystyna Longoria PA-C. Narrative 04/15/2025 12:29 PM EDT BONE MINERAL DENSITOMETRY, DEXA SCAN . CLINICAL HISTORY: Osteoporosis screening. COMPARISON: None . FINDINGS: Bone densitometry calculations of the lumbar spine, femoral neck and forearm were obtained. Average BMD for the lumbar spine from L1-L4 is 1.2 g/sq cm. T-score is 0.2. Z-score is 1.7. Left femoral neck BMD is 0.8 g/sq cm. T-score is -1.4. Z score is 0.4. Distal radius BMD is 0.5 g/sq cm. T-score is 0.1. Z score is 2.6. Procedure Note Ihsan Velasco MD - 04/15/2025 BONE MINERAL DENSITOMETRY, DEXA SCAN . CLINICAL HISTORY: Osteoporosis screening. COMPARISON: None . FINDINGS: Bone densitometry calculations of the lumbar spine, femoral neck and forearm were obtained. Average BMD for the lumbar spine from L1-L4 is 1.2 g/sq cm. T-score is 0.2. Z-score is 1.7. Left femoral neck BMD is 0.8 g/sq cm. T-score is -1.4. Z score is 0.4. Distal radius BMD is 0.5 g/sq cm. T-score is 0.1. Z score is 2.6. IMPRESSION: 1. Normal BMD of the lumbar spine. No increased risk for fracture. 2. Osteopenia BMD of the left femoral neck. Intermediate risk for fracture. 3. Normal BMD of the distal radius. No increased risk for fracture. FRAX evaluation gives the risk of a major osteoporotic fracture over 10 years as 11.6% and the risk of a hip fracture as 2.4%. Images reviewed, interpreted, and dictated by Dr. Ihsan Velasco. Transcribed by Krystyna Longoria PA-C. Graham Jose MD IMG DXA ORDERABLES Final Res ult from Last 3 Months or Most Recently Relevant to Health Maintenance Insurance MEDICARE PART A B [facility] Care Teams Obstetrics Gynecology Md Relationship Specialty Start Date End Date Graham Jose MD [address] [place] [address] [place] [id number] PCP - General Adolescent Medicine 04/15/25
--- OUTSIDE RECORDS SUMMARY | 2025-08-16 15:55 | XMS_ITS | Data Portability ---
Author Organization [facility] Crane CHIN [place] [facility] Address [address] [place] [address] Care Team Providers Care Client Services Vice President Name Role Phone JERSEY NAVAS Yard Crane Operator TAYLER SWEENEY OTHER VIKTORIA CORDOVA OTHER YURY CESAR OTHER GRAHAM JEAN Primary Care Provider SERA NO Breast Surgeon [phone] GRAHAM CORONA Urologist VALARIE MEYERS Missile Technician YURY ABRAHAM Block Cuber VENKATA MORRIS Glass Decorator LU WRIGHT General Surgeon LAUREN GRIFFIN Web User Experience Strategist Assessment Encounter Date Assessment Date Assessment LastModified by Organization Details LastModified Time 01/30/2025 01/30/2025 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 *Daughter passed in October 2019 from metastatic SCC pelvis* Daughter lives in [facility], Son in law is a airplane patrol pilot, has 3 grandchildren She has had two recent TIAs Not available 08/07/2025 18:41:10 Plan of Treatment Reminders Order Date Submit Date Provider Last Modified By Organization Details Last Modified Time Details Appointments RECHECK 2025 01:30P M LAUREN GRIFFIN MD Not available Not available Not available RECHECK 2025 11:45A M VENKATA MORRIS VENDOR RELATIONSHIP MANAGER Not available Not available Not available DERM ESTABLISH ED 2025 02:40P M LOUISE ROSS PA-C Not available Not available Not available Lab surgical pathology study 2024 [facility], [address] [place] [address], [address], 02/01/2025 16:09:08 Referral None recorded. Procedures None recorded. Surgeries None recorded. Imaging US, carotid artery 2024 [facility], [address], [place], [address], 07/01/2025 13:58:41 holter monitor 2024 [email or web address], [address], [facility], [place], [address], 06/21/2025 09:54:25 Medication Orders ammonium lactate 12 % topical cream 2024 [facility], [address], [address], 08/07/2025 15:10:41 Repatha SureClick 140 mg/mL subcutane ous pen injector 2024 025 [facility], [address], [address], 06/20/2025 16:16:01 Compound Gentamici n 80 mg - Mupirocin 20 mg - Budesonid e 1 mg capsules #60 2024 025 [facility], [address] [facility] [place], [address], 05/23/2025 13:12:22 clobetaso l 0.05 % topical cream 2024 025 [facility], [facility] [address], [address], 01/30/2025 16:58:32 Patient TargetsNo targets recorded. Patient Instructions Encounter Date Encounter Id Patient Instructions Last Modified By Organization Details Last Modified Time 01/25/2025 [id number] supraventricular tachycardia: care instructions Not available 01/25/2025 15:29:58 high blood press ure: care instructions Not available 01/25/2025 15:29:58 high cholesterol : care instructions Not available 01/25/2025 15:29:58 coronary artery disease: care instructions Not available 01/25/2025 15:29:58 01/30/2025 [id number] Education/alt/ri sks/ benefits/SE of Dx & Tx discussed. Daily UV protection with broad-spectrum SPF 30+ on exposed areas recommended. Pt encouraged to RTC with any new/changing lesions. [email or web address] Not available 01/30/2025 08:26:58 05/23/2025 [id number] 1. Laryngoscopy flex performed in office today. Full risks, complications, and benefits of non-operative intervention have been thoroughly discussed. Understanding was expressed, informed consent given, and we will proceed with the discussed treatment plan. There were no questions for me at the end of the office visit. 2. Compound Gentamicin 80 mg - Mupirocin 20 mg - Budesonide 1 mg capsules #60 Irrigate with normal saline BID x 6 weeks 3. Continue with saline rinse after course of antibiotic rinse 4. F/u in 3 months [email or web address] Not available 05/23/2025 13:11:29 former patient o f Dr. SUMMERS's with difficult sinus problem; endoscopy today shows more of the purulent crusting in the left maxillary sinus; this was staph the last time and appears to be the case today; I'm afraid we weren't on the same page with her saline rinse; it is essential she does this every day; will have to do another six weeks of antibiotic rinse then go back to the saline; can leave the budesonide out since she thought that raised her blood pressure; follow up in three months to check her progress [email or web address] Not available 05/23/2025 13:22:55 06/20/2025 [id number] supraventricular tachycardia: care instructions Not available 06/20/2025 16:08:40 high blood press ure: care instructions Not available 06/20/2025 16:08:40 high cholesterol : care instructions Not available 06/20/2025 16:08:40 coronary artery disease: care instructions Not available 06/20/2025 16:08:40 08/07/2025 [id number] Education/alt/ri sks/ benefits/SE of Dx & Tx discussed. Daily UV protection with broad-spectrum SPF 30+ on exposed areas recommended. Pt encouraged to RTC with any new/changing lesions. [email or web address] Not available 08/06/2025 17:42:05 Reason for Referral None Reported. Results Created Date Observation Date Name Description Value Unit Range Abnormal Flag Note LastModifiedBy Organization Detail LastModifiedTime 01/31/2001/30/2025 SURGI URIAH surgical SEE BELOW abnormal Surgi uriah Patho logy Repor t NAME: CANDACE DUMONT PATH: [id number] DATE of : [birth year] 30 [id number] Copy to: Diagn osis: A) Left proxi mal later al upper arm: Squam ous cell carci noma, well diffe renti ated; incom plete ly excis ed. Note: Tumor abuts the inked deep kieran n of the biops y speci men. Clini uriah histo ry of dolly hernandez iccat ion and curet tage. B) Left [...] one casse tte label ed A1. B) Patie nt name and date of verif ied. Recei bindu in forma megan label ed with the patie nt's name and desig nated left dista [...] 16:08 Page 1 of 1 Not Available [facility] [address] [place] [address], [place], [address], 02/01/2025 16:09:07 06/21/2006/20/2025 elect sara montgomery am No observ ation record ed. BARCODE Not Available 2024 09:08:54 07/01/2007/01/2025 US, carot id arter y No observ ation record ed. [facility] [address] , [place], [address], 07/02/2025 13:05:58 07/19/20 25 07/15/2025 event monit or No observ ation record ed. CLIVE Not Available 2024 23:51:59 Result Notes None recorded. Problems Name Problem SNOMED Code Status Onset Date Resolution Date Notes Provider Name and Address Organization Details Recorded Time Lateral epicondyl itis 472303907 Active 2014 From Automated Load;Prov ider: Graham Dykes;S tatus: Active Not Available [facility] 6 05:16:01 Acquired trigger finger 0888958 Active 2014 From Automated Load;Prov ider: Graham Dykes;S tatus: Active Not Available [facility] 6 05:16:00 Dyspnea 856027028 Active 2014 From Automated Load;Prov ider: Valarie Meeyrs;Sta tus: Active Not Available [facility] 6 05:16:00 Obstructi ve sleep apnea syndrome 96269887 Active 2014 From Automated Load;Prov ider: Valarie Meyers;Sta tus: Active Not Available [facility] 6 05:16:01 Idiopathi c osteoarth ritis 984993745 Active 2014 From Automated Load;Prov ider: Nevaeh Pa;St atus: Active Not Available [facility] 6 05:16:00 Pain in right knee Active 2014 From Automated Load;Prov ider: Nevaeh Pa;St atus: Active Not Available [facility] 6 05:16:00 Insomnia 079527941 Active 2015 From Automated Load;Prov ider: Valarie Meyers;Sta tus: Active Not Available [facility] 6 05:16:00 Melanocyt ic nevus of trunk 166648751 Active 2015 From Automated Load;Prov ider: Devon Isaacs;Frankie tatus: Active Not Available [facility] 6 05:16:00 Eczema 64674710 Active 2015 From Automated Load;Prov ider: Devon Isaacs;S tatus: Active Not Available [facility] 6 05:16:01 Senile hyperkera tosis 146664217 Active 2015 From Automated Load;Prov ider: Devon Isaacs;Frankie tatus: Active Not Available [facility] 6 05:16:01 Lentigo Active 2015 From Automated Load;Prov ider: Devon Isaacs;Frankie tatus: Active Not Available [facility] 6 05:16:01 Acute sinusitis 90915602 Active 2015 From Automated Load;Prov ider: Shoaib Chauhan;Sta tus: Active Not Available [facility] 6 05:16:00 Sinusitis 61141051 Active 2015 From Automated Load;Prov ider: Shoaib Chauhan;Sta tus: Active Not Available [facility] 6 05:16:00 Vasomotor rhinitis 9610061 Active 2015 From Automated Load;Prov ider: Shoaib Chauhan;Sta tus: Active Not Available [facility] 6 05:16:00 Hypertrop hy of nasal turbinate s 36081587 Active 2015 From Automated Load;Prov ider: Shoaib Chauhan;Sta tus: Active Not Available [facility] 6 05:16:00 Nasal polyp Active 2015 From Automated Load;Prov ider: Shoaib Chauhan;Sta tus: Active Not Available [facility] 7 06:09:08 Low back pain 792795467 Active 2016 BALA RAHMAN, PT [address] [place], [address] , [facility] 7 12:34:12 Abnormal posture 57367065 Active 2016 BALA RAHMAN, PT [address] [place], [address] , [facility] 7 12:34:14 Muscle weakness 84672901 Active 2016 BALA RAHMAN, PT [address] [place], [address] , [facility] 7 12:34:15 Lumbar spine stiff 757847709 Active 2016 BALA RAHMAN, PT [address] [place], [address] , [facility] 7 12:34:16 Contusion of rib 325206599 Active 2017 BALA RAHMAN, PT [address] [place], [address] , [facility] 8 18:42:00 Stiff back 203068944 Active 2017 BALA RAHMAN, PT [address] [place], [address] , [facility] 8 18:42:01 Rib pain 339825513 Active 2017 BALA RAHMAN, PT [address] [place], [address] , [facility] 8 18:42:03 Infection of sebaceous cyst 548623018 Active 2017 left thigh Lilli Graves [facility] 8 14:27:30 Osteoarth ritis of joint of hand 87943855 Active 2019 BALA RAHMAN, PT [address] [place], [address] , [facility] 0 19:51:53 Pain of right hand 80919275180 9109 Active 2019 BALA RAHMAN, PT [address] [place], [address] , [facility] 0 19:51:55 Stiffness of joint of right hand 97095547422 9106 Active 2019 BALA RAHMAN, PT [address] [place], [address] , [facility] 0 19:51:57 Contractu re of joint of finger of left hand due to scar 10184343688 738127 Active 2019 BALA RAHMAN, PT [address] [place], [address] , [facility] 0 17:06:15 Thumb joint stiff 368702408 Active 2019 BALA RAHMAN, PT [address] [place], [address] , [facility] 0 17:06:30 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 43613596 Active 2019 BALA RAHMAN, PT [address] [place], [address] , [facility] 0 17:07:01 Pain of right shoulder joint 38024302365 387495 Active 2019 BALA RAHMAN, PT [address] [place], [address] , [facility] 0 18:53:50 Essential hypertens ion 64466826 Active 2021 KAMILAH LOPEZ, VENDOR RELATIONSHIP MANAGER [address] [place], [address] , [facility] 2 16:55:28 Type 2 diabetes mellitus 04887467 Active 2021 KAMILAH LOPEZ, VENDOR RELATIONSHIP MANAGER [address] [place], [address] , [facility] 2 16:55:41 Palpitati ons 06360746 Active 2021 KAMILAH LOPEZ, VENDOR RELATIONSHIP MANAGER [address] [place], [address] , [facility] 2 16:55:59 Supravent ricular tachycard ia 5227733 Active 2021 KAMILAH LOPEZ, VENDOR RELATIONSHIP MANAGER [address] [place], [address] , [facility] 2 16:56:26 Tendiniti s of right forearm 07831068632 491681 Active 2022 BALA RAHMAN, PT [address] [place], [address] , [facility] 3 15:01:54 Atrophy of muscle of right shoulder 21455491805 9104 Active 2022 BALA Holly JOSIAH, PT [address] [place], [address] , [facility] 3 15:01:58 Lateral epicondyl itis 527449063 Active 2022 BALA Holly CROMWELL, PT [address] [place], [address] , [facility] 3 19:19:45 Spasm 11493881 Active 2022 BALA TRINIDADWELL, PT [address] [place], [address] , [facility] 19:19:50 Problem Notes None recorded. Procedures Surgical History Date Name Laterality Status Provider Name and Address Organization Details Recorded Time EKG completed VENKATA MORRIS, VENDOR RELATIONSHIP MANAGER [address] [place] [address], [id number] [place] [address] 06/20/2025 15:58:24 025 Endoscopy Nasal; Diagnostic completed LAUREN GRIFFIN MD [address] [place] [address], [address] [place] [address] 05/23/2025 13:19:52 025 Destruction [place] Lesion; trunk, arm, leg completed Steph [facility] 01/30/2025 15:00:42 025 Biopsy Skin Lesion; Tangential completed LOUISE ROSS PA-C [address] [place] [address], [address] [place] [address] 02/03/2025 19:43:10 025 Endoscopy Nasal; Diagnostic completed LAUREN GRIFFIN MD [address] [place] [address], [address] [place] [address] 12/28/2024 14:10:00 025 Endoscopy Nasal; Biospy, Polypectomy or Debridement completed Laila Bhatia [facility] 11/27/2024 15:18:30 024 Stress Test - Nuclear completed YURY MORELAND MD [address] [place], [address], [facility] 08/09/2024 16:32:59 024 Biopsy Skin Lesion; Tangential completed Fernanda R[facility] 08/01/2024 15:29:33 024 EKG completed VENKATA MORRIS APRN [address] [place], [address], [facility] 07/06/2024 11:30:16 024 Synvisc One Injection completed Soni Maldonado [facility] 06/05/2024 11:20:07 024 Destruction Premalignant Lesion(s) completed Andreina Muse [facility] 01/30/2024 15:37:40 024 Synvisc One Injection completed Soni Maldonado [facility] 09/20/2023 15:05:25 024 Laryngoscopy Flex completed Vincent De La Rosa [facility] 09/08/2023 14:40:07 023 Destruction Premalignant Lesion(s) completed Andreina Muse [facility] 07/11/2023 14:11:59 023 Diffusion Capacity completed VALARIE MEYERS PA-C [address] [place], [address], [facility] 04/26/2023 16:53:09 023 Lung Volumes, Plethysmography completed VALARIE MEYERS PA-C [address] [place], [address], [facility] 04/26/2023 16:53:12 023 Spirometry completed VALARIE MEYERS PA-C [address] [place], [address], [facility] 04/26/2023 16:53:16 023 Tympanogram completed CHANDAN GARCIA [address] [place], [address], [facility] 02/11/2023 09:56:33 023 Audiogram completed TAMIR PHAM, AUD [address] [place], [address], [facility] 02/11/2023 09:56:25 023 Terra-Hallpike completed YURY OROZCO, VENDOR RELATIONSHIP MANAGER [address] [place], [address], [facility] 02/11/2023 11:04:26 023 Cerumen removal - Instruments, Unilateral completed YRUY OROZCO, VENDOR RELATIONSHIP MANAGER [address] [place], [address], [facility] 02/11/2023 11:04:16 023 Destruction Premalignant Lesion(s) completed Andreina Muse [facility] 01/06/2023 10:05:27 023 EKG completed VENKATA MORRIS, VENDOR RELATIONSHIP MANAGER [address] [place], [address], [facility] 12/22/2022 12:14:26 023 PT Manual Therapy completed BALA RAHMAN, PT [address] [place], [address], [facility] 11/16/2022 13:59:41 023 PT Therapeutic Exercise completed BALA RAHMAN, PT [address] [place], [address], [facility] 11/16/2022 13:57:57 023 PT Ultrasound completed BALA RAHMAN, PT [address] [place], [address], [facility] 11/16/2022 13:59:49 023 PT Manual Therapy completed BALA RAHMAN, PT [address] [place], [address], [facility] 11/08/2022 19:18:33 023 PT Therapeutic Exercise completed BALA RAHMAN, PT [address] [place], [address], [facility] 11/08/2022 19:15:09 023 PT Ultrasound completed BALA RAHMAN, PT [address] [place], [address], [facility] 11/08/2022 19:18:24 023 PT Evaluation - Low Complexity completed BALA RAHMAN, PT [address] [place], [address], [facility] 10/20/2022 14:53:00 023 PT Therapeutic Exercise completed BALA RAHMAN, PT [address] [place], [address], [facility] 10/20/2022 14:53:28 023 Endoscopy Nasal; Diagnostic completed Sherie Hudson [facility] 09/02/2022 11:51:54 022 Destruction BN Lesions completed [facility] 07/05/2022 11:04:13 022 Destruction [place] Lesion; trunk, arm, leg completed [facility] 03/31/2022 16:29:14 022 Shave Lesion; trunk, arm, leg completed [facility] 03/09/2022 12:27:47 022 Destruction Premalignant Lesion(s) completed [facility] 03/09/2022 12:22:34 022 Synvisc One Injection completed Paulette Hammer [facility] 01/06/2022 10:38:32 022 VAS - Carotid Duplex completed TONIE CARRINGTON MD [address] [place], [address], [facility] 12/03/2021 15:57:59 022 Bubbles Echocardiogram completed BEN HERNANDEZ MD [address] [place], [address], [facility] 12/03/2021 14:57:01 022 EKG completed Vicki Ledesma [facility] 11/19/2021 09:53:59 022 Destruction Premalignant Lesion(s) completed Fernanda Matute [facility] 09/23/2021 10:18:48 021 Nasal Endoscopy completed Ellen Headley [facility] 08/10/2021 17:01:02 021 Synvisc One Injection completed CHANDA ROMERO PA-C [address] [place], [address], [facility] 03/26/2021 11:25:31 021 Injection - Tendon Sheath/Ligament completed GRAHAM DYKES MD [address] [place], [address], [facility] 03/25/2021 10:50:29 021 Destruction MN Lesion; trunk, arm, leg completed LOUISE ROSS PA-C [address] [place], [address], [facility] 12/05/2020 15:59:45 021 Biopsy Skin Lesion; Tangential completed Emy Davis [facility] 12/03/2020 10:53:00 021 Destruction Premalignant Lesion(s) completed Emy Davis [facility] 12/03/2020 11:03:08 021 Orthotic, FO, Dynamic Prefab completed JOLLY ROUSE/Rolo, CHT [address] [place], [address], [facility] 10/24/2020 08:49:59 021 PT Manual Therapy completed JOLLY ROUSE/Rolo, CHT [address] [place], [address], [facility] 10/24/2020 08:49:54 021 PT Paraffin Bath completed JOLLY ROUSE/Rolo, CHT [address] [place], [address], [facility] 10/23/2020 08:31:53 021 PT Manual Therapy completed EVELYN CANALES OTR/L, CHT [address] [place], [address], [facility] 09/19/2020 11:16:16 021 PT Paraffin Bath completed EVELYN CANALES OTR/L, CHT [address] [place], [address], [facility] 09/19/2020 11:15:50 021 PT Hot/Cold Pack completed EVELYN CANALES OTR/L, CHT [address] [place], [address], [facility] 09/10/2020 11:37:39 021 PT Manual Therapy completed EVELYN CANALES OTR/L, CHT [address] [place], [address], [facility] 09/10/2020 11:37:37 021 OT Evaluation - Moderate complexity completed EVELYN CANALES OTR/L, CHT [address] [place], [address], [facility] 09/05/2020 11:32:57 021 Orthotic, FO, Static Custom completed EVELYN CANALES OTR/L, CHT [address] [place], [address], [facility] 09/05/2020 11:33:02 021 Destruction MN Lesion; trunk, arm, leg [facility] 12:05:31 021 Biopsy Skin Lesion; Tangential completed [facility] 09/03/2020 12:02:31 021 Destruction Premalignant Lesion(s) completed Steph [facility] 09/03/2020 12:00:32 020 PT Therapeutic Exercise completed BALA RAHMAN, PT [address] [place], [address], [facility] 07/04/2020 16:03:22 020 PT Therapeutic Exercise completed BALA Elayne RAHMAN, PT [address] [place], [address], [facility] 06/23/2020 18:48:36 PT Therapeutic Exercise completed BALA A JOSIAH, PT [address] [place], [address], [facility] 06/13/2020 15:51:44 PT Manual Therapy completed BALA Elayne RAHMAN, PT [address] [place], [address], [facility] 06/04/2020 13:09:44 PT Therapeutic Exercise completed BALA RAHMAN, PT [address] [place], [address], [facility] 06/04/2020 13:09:33 020 PT Ultrasound completed BALA RAHMAN, PT [address] [place], [address], [facility] 06/04/2020 13:09:55 PT Manual Therapy completed BALA RAHMAN, PT [address] [place], [address], [facility] 05/20/2020 18:03:48 020 PT Therapeutic Exercise completed BALA RAHMAN, PT [address] [place], [address], [facility] 05/20/2020 18:04:39 020 PT Ultrasound completed BALA A JOSIAH, PT [address] [place], [address], [facility] 05/20/2020 18:04:03 020 PT Evaluation - Low Complexity completed BALA A JOSIAH, PT [address] [place], [address], [facility] 05/09/2020 16:57:46 PT Therapeutic Exercise completed BALA RAHMAN, PT [address] [place], [address], [facility] 05/09/2020 16:58:14 020 PT Ultrasound completed BALA RAHMAN, PT [address] [place], [address], [facility] 05/09/2020 16:59:06 020 Orthotic, HFO, Static Custom completed EVELYN CANALSE, OTR/L, CHT [address] [place], [address], [facility] 02/27/2020 13:25:40 020 Destruction Premalignant Lesion(s) completed Steph [facility] 02/13/2020 09:19:10 020 PT Evaluation - Low Complexity completed BALA RAHMAN, PT [address] [place], [address], [facility] 10/01/2019 19:42:57 020 PT Therapeutic Exercise completed BALA RAHMAN, PT [address] [place], [address], [facility] 10/01/2019 19:43:05 020 Injection - Joint/Bursa, Interm completed GRAHAM DYKES MD [address] [place], [address], [facility] 10/01/2019 08:31:29 020 Endoscopy Nasal; Diagnostic completed Savi Gonsales [facility] 09/06/2019 08:56:05 019 Orthotic, HFO, Static Custom completed EVELYN CANALES, OTR/L, CHT [address] [place], [address], [facility] 06/04/2019 14:36:14 019 Endoscopy Nasal; Biospy, Polypectomy or Debridement completed Felicitas Umana [facility] 05/30/2019 13:32:18 019 thumb surgery completed Emy [facility] 05/30/2019 13:01:13 019 Tympanogram completed TAYLER LÓPEZ, AUD [address] [place], [address], [facility] 01/01/2019 10:46:21 019 Audiogram completed TAYLER LÓPEZ, AUD [address] [place], [address], [facility] 01/01/2019 10:46:19 [address] [facility] 01/01/2019 11:59:23 019 Destruction Premalignant Lesion(s) completed [facility] 11/14/2018 10:57:46 019 Destruction BN Lesions completed [facility] 11/14/2018 10:58:02 019 Endoscopy Nasal; Biospy, Polypectomy or Debridement completed Kalin Joseph [facility] 09/28/2018 10:53:01 018 General Surgery completed Lilli Graves [facility] 05/10/2018 14:28:11 018 Injection - Tendon Sheath/Ligament completed SONI MAYES PA-C [address] [place] [place], [address], [facility] 04/07/2018 15:04:57 018 Endoscopy Nasal; Biospy, Polypectomy or Debridement completed Felicitas [facility] 03/30/2018 15:24:47 018 I&D Abscess/Cyst Single/Simple completed Eloisa Quintero [facility] 12/22/2017 10:33:38 018 Injection - Intralesional completed DEVON ISAACS, VENDOR RELATIONSHIP MANAGER [address] [place], [address], [facility] 12/22/2017 11:27:35 018 PT Therapeutic Exercise completed BALA RAHMAN, PT [address] [place], [address], [facility] 12/08/2017 18:00:45 018 PT Evaluation - Low Complexity completed BALA RAHMAN, PT [address] [place], [address], [facility] 11/14/2017 18:35:08 018 Destruction Premalignant Lesion(s) completed [facility] 11/10/2017 11:30:30 018 Destruction BN Lesions completed [facility] 11/10/2017 11:31:29 018 Injection - Tendon Sheath/Ligament completed SONI MAYES PA-C [address] [place], [address], [facility] 10/31/2017 16:26:09 018 Endoscopy Nasal; Biospy, Polypectomy or Debridement completed [facility] 10/27/2017 13:35:50 017 Endoscopy Nasal; Biospy, Polypectomy or Debridement [facility] 11:52:37 017 Endoscopy Nasal; Biospy, Polypectomy or Debridement completed [facility] 05/25/2017 08:34:58 017 Breast Surgery completed Candacemichelle Gaona [facility] 05/25/2017 08:10:17 017 Biopsy Skin completed [facility] 03/15/2017 15:07:02 017 Destruction Premalignant Lesion(s) completed [facility] 03/15/2017 15:22:34 017 Destruction BN Lesions completed [facility] 03/15/2017 15:23:02 017 Endoscopy Nasal; Biospy, Polypectomy or Debridement completed [facility] 02/24/2017 11:31:32 017 Review of Med Recs/Compl forms completed [facility] 02/03/2017 12:14:00 017 Endoscopy Nasal; Diagnostic completed [facility] 02/03/2017 12:15:20 017 Endoscopy Nasal; Diagnostic completed [facility] 01/06/2017 09:51:33 017 Endoscopy Nasal; Biospy, Polypectomy or Debridement completed [facility] 12/01/2016 13:51:[address] [facility] 11/10/2016 11:32:31 017 Review of Med Recs/Compl forms completed [facility] 11/10/2016 11:27:30 017 Endoscopy Nasal; Biospy, Polypectomy or Debridement completed Maria Ines [facility] 11/04/2016 13:17:46 017 PT Therapeutic Exercise completed BALA RAHMAN, PT [address] [place], [address], [facility] 10/05/2016 14:10:15 017 PT Therapeutic Exercise completed BALA RAHMAN, PT [address] [place], [address], [facility] 09/29/2016 12:33:26 017 PT Evaluation - Low Complexity completed BALA RAHMAN, PT [address] [place], [address], [facility] 09/29/2016 12:33:09 017 Endoscopy Nasal; Biospy, Polypectomy or Debridement completed Sherie Hudson [facility] 09/23/2016 13:58:53 016 Ears/Nose/Throat Surgery completed [facility] 02/03/2017 10:22:51 Inside Contractor Sales Surgery completed [facility] 02/03/2017 10:18:36 Knee arthroscopy/surgery completed [facility] 02/03/2017 10:18:48 Shoulder joint surgery completed [facility] 02/03/2017 10:19:09 Shoulder joint surgery completed [facility] 02/03/2017 10:19:11 Unlisted px foot/toes completed [facility] 02/03/2017 10:19:34 Ears/Nose/Throat Surgery completed [facility] 02/03/2017 10:20:04 Breast Surgery completed Maryaysha Mclain [facility] 02/13/2018 10:35:00 Carpal tunnel surgery completed [facility] 02/03/2017 10:20:44 Unlisted px hands/fingers completed [facility] 02/03/2017 10:20:51 Knee arthroscopy/surgery completed [facility] 02/03/2017 10:22:07 Tonsillectomy completed Patricia [facility] 08/24/2016 13:58:23 Other completed Patricia [place] [facility] 08/24/2016 13:58:37 Other completed Patricia Jer [facility] 08/24/2016 13:58:56 Other completed Patricia Jer [facility] 08/24/2016 14:01:05 Other completed Patricia Jer [facility] 08/24/2016 14:04:12 Appendectomy completed Mary [facility] 12/08/2023 10:24:54 Imaging Results None recorded. Procedure Notes None recorded. Medical Equipment None Reported. Allergies Allergen ID Allergen Name Allergen Category Reaction Reaction Severity Criticality Documentation Date Start Date Code Code System Note Provider Name and Address Organization Details Recorded Time 084662 prednison e medicatio n Not available Not available Not available 07/22/20162009 8640 RxNorm Mary Cevallos [facility] 8 10:24:29 027160 clindamyc in hydrochlo ride medicatio n nausea Not available Not available 07/22/20162012 17885 RxNorm Candace Brown mere [facility] 7 09:10:31 099338 vancomyci n hydrochlo ride medicatio n Not available Not available Not available 07/22/20162012 20806 RxNorm Candace Brown mere [facility] 7 09:11:12 370917 acetamino phen / hydrocodo ne medicatio n nausea severe Not available 07/22/20162010 87148 2 RxNorm React ion: NAUSE A;Sev erity : Sever e; Comme nt: Creat ed By: Jennifer fernandez Date: 2010 4:54: 20 PM; Not Available [facility] 6 10:18:05 205862 Substance with prostagla ndin-endo peroxide synthase isoform 2 inhibitor mechanism of action (substanc e) Not available other Not available Not available 07/22/20162009 79536 0005 SNOMED Comme nt: CAUSE ULCER S Candace Brown mere [facility] 7 09:10:42 589356 Substance with sulfonami de structure and antibacte rial mechanism of action (substanc e) medicatio n Not available Not available Not available 07/22/20162006 00298 8003 SNOMED Candace Brown mere [facility] 7 09:11:08 698078 Reglan medicatio n Not available Not available Not available 07/22/20162009 9230 RxNorm Mary Cevallos [facility] 4 10:03:21 274627 Cymbalta medicatio n Not available Not available Not available 07/22/20162010 79886 4 RxNorm Candace Brown mere [facility] 7 09:10:46 278910 gabapenti n medicatio n rash Not available Not available 07/22/20162012 46842 RxNorm Candace Brown mere [facility] 7 09:10:51 620248 Medrol medicatio n rash Not available Not available 07/22/20162014 2 RxNorm Mary Cevallos [facility] 8 10:24:22 708181 codeine medicatio n Not available Not available Not available 07/22/20162006 2670 RxNorm Candace Brown mere [facility] 7 09:10:34 459084 Biaxin medicatio n other Not available Not available 07/22/20162006 9 RxNorm Comme nt: PT ON RELPA X SHOUL D NOT TAKE BIAXI N WITH THIS DRUG Candace severino [facility] 7 09:10:23 275620 midazolam hydrochlo ride medicatio n Not available Not available Not available 07/22/2016201312 8 RxNorm Candace severino [facility] 7 09:11:14 511695 acetamino phen / hydrocodo ne medicatio n nausea Not available Not available 07/23/2016201218 2 RxNorm Candace severino [facility] 7 09:10:55 616802 Cipro medicatio n abdominal pain Not available Not available 02/13/201895510 3 RxNorm Mary Cevallos [facility] 8 10:25:49 086252 Topamax medicatio n Not available Not available Not available 12/14/202161841 3 RxNorm Margaritaelayne Cole [facility] 2 11:53:05 953116 Non-stero idal anti-infl ammatory agent (substanc e) medicatio n Not available Not available Not available 12/14/2021 79747 5008 SNOMED Margaritaelayne Cole [facility] 2 11:53:13 607558 amoxicill in medicatio n Not available Not available Not available 09/12/2024 723 RxNorm Notif ied of aller gy 09/12 Ginny Hernández [facility] 5 15:26:18 374506 lidocaine medicatio n rash Not available Not available 11/27/2024 6387 RxNorm decli gideon topic al lidoc carleen due to rash/ burni ng Jeny David [facility] 5 15:04:06 666911 gabapenti n medicatio n swelling Not available high 07/26/20252022 11953 RxNorm Not Available clive - [employer] - prod 5 10:01:08 976503 vancomyci n medicatio n rash Not available low 07/26/20252022 39723 RxNorm Not Available clive - [employer] - prod 5 10:01:08 782462 clindamyc in Not available Not available Not available Not available 07/26/20252022 2582 RxNorm Upset stoma ch Not Available clive - [employer] - prod 5 10:01:38 337521 nebivolol medicatio n swelling Not available Not available 07/26/20252022 51359 RxNorm palpi tatio ns Not Available [employer]ive - [employer] - prod 5 10:01:38 157104 pregabali n medicatio n swelling Not available low 07/26/20252022 62012 2 RxNorm Not Available [employer] [facility] [employer] 5 10:01:38 090873 fentanyl medicatio n Not available Not available Not available 07/26/20252014 4337 RxNorm migra ine unrec ogniz ed react ion (text : Other (See Comme nts), code: 17342 003) (from exter nal sourc e) Not Available [employer] [facility] [employer] 5 10:02:01 016239 metoclopr amide hydrochlo ride medicatio n Not available Not available Not available 07/26/20252014 61461 6 RxNorm migra ine unrec ogniz ed react ion (text : Other (See Comme nts), code: 00941 003) (from exter nal sourc e) Not Available [employer] - [employer] - prod 5 10:02:01 730823 amoxicill in / clavulana te medicatio n Not available Not available Not available 07/26/20252024 15413 RxNorm Other React ion(s ): abdom inal pain Not Available [employer] [facility] [employer] 5 10:03:25 471823 celecoxib medicatio n Not available Not available Not available 07/26/20252014 45744 7 RxNorm Not Available [employer] - [employer] - prod 5 10:03:25 360475 ciproflox acin hydrochlo ride medicatio n Not available Not available Not available 07/26/20252023 97727 RxNorm Extre me abdom inal pian Not Available [employer] - [employer] - prod 5 10:03:25 979148 ciproflox acin medicatio n Not available Not available low 07/26/20252024 2551 RxNorm Other React ion(s ): abdom inal pain, GI Intol eranc e Abdom inal pain Not Available clive - [employer] - prod 5 10:03:25 221512 clarithro mycin medicatio n Not available Not available Not available 07/26/20252006 14281 RxNorm Was told not to take with migra ine medic ation Biaxi n Not Available [employer]ive - [employer] - prod 5 10:03:25 847574 clindamyc in hydrochlo ride medicatio n Not available Not available Not available 07/26/20252012 84656 RxNorm Not Available [employer] - [employer] - prod 5 10:03:25 226032 duloxetin e medicatio n Not available Not available high 07/26/20252010 62571 RxNorm Other React ion(s ): Not avail able LEG SWELL ING Not Available clive - External Data [employer] - prod 5 10:03:25 709710 hydrocodo ne Not available Not available Not available low 07/26/20252018 5489 RxNorm Not Available [employer] - [employer] - prod 5 10:03:25 706745 indometha cornelius sodium medicatio n Not available Not available Not available 07/26/20252014 59888 12 RxNorm Not Available [employer] - [employer] - prod 5 10:03:25 330312 levofloxa cornelius medicatio n Not available Not available high 07/26/20252017 28424 RxNorm Ruptu red tendo ns and paty er finge r Not Available [employer] [facility] [employer] 5 10:03:25 851510 metformin medicatio n Not available Not available Not available 07/26/20252018 6809 RxNorm Other React ion(s ): GI Intol eranc e Not Available [employer] [facility] [employer] 5 10:03:25 910197 midazolam hydrochlo ride medicatio n Not available Not available Not available 07/26/20252013 27316 8 RxNorm Other React ion(s ): Not avail able Not Available [employer] [facility] [employer] 5 10:03:25 682436 naproxen sodium medicatio n Not available Not available Not available 07/26/20252024 55461 2 RxNorm Other React ion(s ): Unkno wn Not Available [employer] - prod 5 10:03:25 104460 sulfameth oxazole / trimethop rim medicatio n Not available Not available high 07/26/20252012 38111 RxNorm GENER NARCISO D SWELL ING Not Available [employer] - prod 5 10:03:25 672186 lactase medicatio n Not available Not available Not available 07/26/20252016 36188 RxNorm Migra chang Not Available [employer] - prod 5 10:03:25 143501 topiramat e medicatio n Not available Not available high 07/26/20252021 44413 RxNorm Lasts days Other React ion(s ): Not avail able Not Available [employer] - prod 5 10:03:25 616446 duloxetin e hydrochlo ride medicatio n Not available Not available Not available 07/26/20252016 71876 0 RxNorm Not Available [employer] - prod 5 10:03:29 Medications Name Sig Start Date Stop Date Status Note LastModified by Organization Details LastModified Time Compound Gentamici n 80 mg - Mupirocin 20 mg - Budesonid e 1 mg capsules #60 Empty contents of 1 capsule into irrigati on device, add distille d water, irrigate twice daily 2024 active Not Available Not Available Not [...] Not Available Not Available Not Available clotrimaz ole 10 mg lai Take 1 tablet 5 times a day by oral route for 42 days. 2024 active Not Available Not Available Not Avai lable metformin 500 mg tablet 08/24 completed Not [...] TABLET BY MOUTH ONCE DAILY FOR REFLUX. active Not Available Not Available No t Available doxycycli ne hyclate 100 mg capsule TAKE [...] Not Available clopidogr el 75 mg tablet TAKE ONE (1) TABLET BY MOUTH ONCE DAILY 2024 active Not Available Not Available Not Avai lable amlodipin e 5 mg tablet 07/06 completed [...] OF BODY BY TOPICAL ROUTE ONCE DAILY 2024 active Not Available Not Available Not [...] completed Not Available Not Available Not Available Cordova 3 active Not Available Not Avail able Not Available Nexium 04/07 completed Not Available Not Available Not Available Relpax 02/24 completed Not Available Not Available Not Available Zostavax (PF) 19,400 unit/0.65 mL subcutane ous suspensio n 08/24 completed Not Available Not Available Not Available Januvia 100 mg tablet 02/26 completed Not Available Not Available Not Available hydrochlo rothiazid e 12.5 mg tablet TAKE 1 TABLET BY MOUTH EVERY MORNING active Not Available Not Available No t Available Golytely 236 gram-22.7 4 gram-6.74 gram-5.86 gram oral solution Take 4000 mL every day by oral route as directed . 07/06 completed NOT TAKING, PER PT 6-3-24 Not Available Not Available Not Available insulin glargine (U-100) 100 unit/mL (3 mL) subcutane ous pen Inject 80 units every day by subcutan eous route at bedtime. active Not Available Not Available No t Available diclofena c 1 % topical gel [...] completed Not Available Not Available Not Available Praluent Pen 75 mg/mL subcutane ous pen injector active Not Available Not Available Not Available Vitamin B12 active Not Available Not Available Not Available Repatha SureClick 140 mg/mL subcutane ous pen injector active Not Available Not Available Not Available Fluarix Quad 1162-5773 (PF) 60 mcg (15 mcg x 4)/0.5 [...] 75 units by subcutan eous route. active not taking Not Available Not Available Not Available Vitals Date Recorded Body height Body mass index (BMI) Body weight Oxygen saturation Heart rate Systolic And Diastolic Provider Name and Address Organization Details Last Updated DateTime 5 175.26 cm 25.3 kg/m2 72472.3 g 95 % 78 /min 120/60 mm[Hg] Libertad Henriquezmichaelromain sellers [facility] 5 13:24:53 Date Recorded Body height Body mass index (BMI) Body weight Body temperature Heart rate Systolic And Diastolic Provider Name and Address Organization Details Last Updated DateTime 5 175.26 cm 24.8 kg/m2 93350.9 2 g 97.2 [degF] 76 /min 95/58 mm[Hg] Vincent Napiertt [facility] 5 12:59:15 Date Recorded Body height Body mass index (BMI) Body weight Oxygen saturation Heart rate Systolic And Diastolic Provider Name and Address Organization Details Last Updated DateTime 5 175.26 cm 25.3 kg/m2 51870.3 g 96 % 65 /min 114/62 mm[Hg] Karolina Perez [facility] 5 15:51:59 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 Question Answer Notes LastModified by Organizat ion Details LastModified Time Tobacco Smoking Status Never [facility] 13:57:44 What Is Your Level Of Caffeine Consumption? Occasional Information not available 10/31/2017 How Much Tobacco Do You Chew? None [email or web address] Information not available 11/05/2020 Which Of Your [...] Date Of Your Most Recent Tobacco Screening? 08/15/2025 [email or web address] Information not available 08/14/2025 How Many Children Do You Have? 4 [email or web address] Information not available 11/19/2021 What Is Your Relationship Status? [email or web address] Information not available 11/19/2021 How Much Tobacco Do You Smoke? No Information not available 11/05/2020 Has Tobacco Cessation Counseling Been Provided? No [email or web address] Information not available 12/22/2022 How Many Years Have You Smoked Tobacco? 0 [email or web address] Information not available 11/05/2020 Have You Recently Traveled Abroad? No [email or web address] Information not available 11/19/2021 Sex: Female Functional Status Question Answer Note LastModified by Organizat ion Details LastModified Time Do you use any illicit or recreational drugs? No Information not available 10/31/2017 Do you or have you ever used any other forms of tobacco or nicotine? No Information not available 06/30/2022 What is your level of alcohol consumption? Occasional one glass of wine daily [email or web address] Information not available 11/05/2020 Do you or have you ever used smokeless tobacco? Never used smokeless tobacco [email or web address] Information not available 11/05/2020 Are you currently [...] Hernia Y Emphysema N Esophagus/swallowing troubles N Lung cancer N Hypothyroidism N Glaucoma N Lung Disease N Depression N Pneumonia Y Anesthesia Complications N Hemophilia N Deep Vein Thrombosis N Anxiety Disorder N Hearing Loss Y Arthritis Y Throat cancer N Acid Reflux (GERD) Y Cancer Y Stroke [...] Pain N Stomach trouble N Heart Attack ([place]) N Ulcers Y Diabetes Y Rheumatic Fever N Bleeding Disorder N Tuberculosis N AIDS/HIV N Hyperlipidemia Y Kidney Failure N Urinary Tract Infection Y Asthma N Epilepsy/Seizures [...] e and Address Organization Details Recorded Time zoster live 6 completed Not Available [facility] 08/07/2025 14:28:53 Influenza, adjuvanted, trivalent, PF 7 completed Not Available [facility] 08/07/2025 14:28:53 Influenza, high-dose, trivalent, PF 8 completed Not Available [facility] 08/07/2025 14:28:53 Influenza, high-dose, trivalent, PF 9 completed Not Available [facility] 08/07/2025 14:28:53 Influenza, high-dose, quadrivalent, PF 0 completed Not Available [facility] 08/07/2025 14:28:53 zoster recombinant 0 completed Not Available [facility] 08/07/2025 14:28:53 zoster recombinant 1 completed Not Available [facility] 08/07/2025 14:28:53 Influenza, adjuvanted, quadrivalent, PF 1 completed Not Available [facility] 08/07/2025 14:28:53 Influenza, high-dose, quadrivalent, PF 2 completed Not Available [facility] 08/07/2025 14:28:53 RSV, bivalent, protein subunit RSVpreF, diluent reconstituted, 0.5 mL, PF 3 completed Not Available [facility] 08/07/2025 14:28:53 Influenza, high-dose, quadrivalent, PF 3 completed Not Available [facility] 08/07/2025 14:28:53 COVID-19, mRNA, LNP-S, PF, 50 mcg/0.5 mL 4 completed Not Available [facility] 08/07/2025 14:28:53 RSV, recombinant, protein subunit RSVpreF, adjuvant reconstituted, 0.5 mL, PF 4 completed Not Available [facility] 08/07/2025 14:28:53 Influenza, high-dose, trivalent, PF 4 completed Not Available [facility] 08/07/2025 14:28:53 Pneumococcal conjugate PCV21, polysaccharide [id number] conjugate, PF 5 completed Not Available [facility] 08/07/2025 14:28:53 Influenza, high-dose, trivalent, PF 5 completed Not Available [facility] 08/07/2025 14:28:53 COVID-19, mRNA, LNP-S, PF, 30 mcg/0.3 mL dose 1 completed Marino Hernandez [facility] 12/11/2024 15:52:44 COVID-19, mRNA, LNP-S, PF, 30 mcg/0.3 mL dose 1 completed Marino Hernandez [facility] 12/11/2024 15:52:44 COVID-19, mRNA, LNP-S, PF, 30 mcg/0.3 mL dose 1 completed Marino Hernandez [email or web address] 12/11/2024 15:52:44 Past Encounters Encounter ID Performer Location Encounter Start Date Encounter Closed Date Diagnosis/Indication Diagnosis SNOMED-CT Code Diagnosis ICD10 Code Diagnosis IMO Codes Diagnosis Note [id number] MARC PATEL [facility] [address] [facility] [place] [address] 08/24/2016 13:16:43 08/25/2016 10:10:18 Abdominal pain 96456338 R10.9 Renal colic 8169617 N23 [id number] MD SULEIMAN LENZ E[address] [place] [address] 09/23/2016 13:08:02 09/23/2016 14:23:23 Hypertrophy of nasal turbinates 61836352 J34.3 Chronic sinusitis 350641 00 J32.9 - S/P Left ESS Obstructiv e sleep apnea of adult 7534135024 103 G47.33 Cyst of nasal sinus 8522 5000 J34.1 - left maxillary Acute sinusitis 52544356 J01.90 [id number] BALA RAHMAN, PT PHYSICAL THERAPY / HAND THERAPY [facility] [place] [address] 09/28/2016 10:32:24 09/30/2016 07:18:12 Low back pain 196000095 M54.5 Abnormal posture 9293562 2 R29.3 Muscle weakness 52356018 M62.81 Lumbar spine stiff 12976 6009 M25.60 [id number] BALA RAHMAN, PT PHYSICAL THERAPY / HAND THERAPY [facility] [address] [address] [place] [address] 10/05/2016 13:20:47 10/05/2016 15:10:07 Low back pain 332749515 M54.5 Lumbar spine stiff 35649 6009 M25.60 Abnormal posture 3164315 2 R29.3 Muscle weakness 99793064 M62.81 [id number] MD SULEIMAN LENZ E[facility] [address] [place] [address] 11/04/2016 12:39:55 11/04/2016 15:05:25 Chronic sinusitis 62457644 J32.9 - S/P Left ESS Acute sinusitis 58852651 J01.90 [id number] SHOAIB CHAUHAN MD [place] [facility] [address] [place] [address] 11/10/2016 10:12:59 11/10/2016 14:08:27 Chronic recurrent sinusitis 549690944 J32.9 status post revision left MMA, left ethmoidect cynthia, left NA window (limited medial maxillecto my), left SMR inferior turbinateC T sinus today shows mucosal thickening in left antrum and left sphenoid sinuses Nasal polyp 75036898 J33 .9 status post revision left MMA, left ethmoidect cynthia, left NA window (limited medial maxillecto my), left SMR inferior turbinate Hypertroph y of nasal turbinates 15435096 J34.3 status post revision left MMA, left ethmoidect cynthia, left NA window (limited medial maxillecto my), left SMR inferior turbinate Obstructiv e sleep apnea syndrome 36188299 G47.33 Vasomotor rhinitis 02488 03 J30.0 Infection by methicillin sensitive Staphylococcus aureus 324215212 A49.01 [id number] VALARIE MEYERS PA-C PULMONARY [address] [facility], [address] [place] [address] 11/22/2016 13:38:19 11/22/2016 16:15:42 Obstructive sleep apnea of adult 8583522996 103 G47.33 patient is compliant with CPAP. Her residual AHI is optimal. I will change CPAP pressure to 8 1 8 centimeter s H2O because she feels that the pressure is too low when she first puts on CPAP. Persistent hypersomnia 211708898 G47.19 Patient is having excessive daytime sleepiness with an [place] sleepiness scale score of 14. I highly [...] at night. She has discontinu ed Rozerem. [id number] MD SULEIMAN LENZ ENT [address] [place] [address] 12/01/2016 13:10:29 12/01/2016 14:10:18 Chronic recurrent sinusitis 082604772 J32.9 status post revision left MMA, left ethmoidect cynthia, left NA window (limited medial maxillecto my), left SMR inferior turbinateC T sinus today shows mucosal thickening in left antrum and left sphenoid sinuses Nasal polyp 68626554 J33 .9 status post revision left MMA, left ethmoidect cynthia, left NA window (limited medial maxillecto my), left SMR inferior turbinate Hypertroph y of nasal turbinates 41711577 J34.3 status post revision left MMA, left ethmoidect cynthia, left NA window (limited medial maxillecto my), left SMR inferior turbinate Obstructiv e sleep apnea syndrome 62094243 G47.33 Vasomotor rhinitis 86792 03 J30.0 Infection by methicillin sensitive Staphylococcus aureus 776821129 A49.01 [id number] MD SULEIMAN LENZ ENT [address] [facility],[address] [place] [address] 01/06/2017 09:19:27 01/06/2017 11:13:26 Chronic recurrent sinusitis 435774569 J32.9 status post revision left MMA, left ethmoidect cynthia, left NA window (limited medial maxillecto my), left SMR inferior turbinate( see above notes) Nasal polyp 49049573 J33 .9 status post revision left MMA, left ethmoidect cynthia, left NA window (limited medial maxillecto my), left SMR inferior turbinate Hypertroph y of nasal turbinates 06172537 J34.3 status post revision left MMA, left ethmoidect cynthia, left NA window (limited medial maxillecto my), left SMR inferior turbinate Obstructiv e sleep apnea syndrome 89132510 G47.33 Vasomotor rhinitis 02797 03 J30.0 Infection by methicillin sensitive Staphylococcus aureus 609460375 A49.01 h/o [id number] MD SULEIMAN LENZ ENT [address] [facility] [place] [address] 02/03/2017 10:55:36 02/04/2017 08:10:28 Chronic recurrent sinusitis 653050682 J32.9 status post revision left MMA, left ethmoidect cynthia, left NA window (limited medial maxillecto my), left SMR inferior turbinate( see above notes) Infection by methicillin sensitive Staphylococcus aureus 881629799 A49.01 h/o Nasal polyp 82019647 J33 .9 status post revision left MMA, left ethmoidect cynthia, left NA window (limited medial maxillecto my), left SMR inferior turbinate Hypertroph y of nasal turbinates 64859711 J34.3 status post revision left MMA, left ethmoidect cynthia, left NA window (limited medial maxillecto my), left SMR inferior turbinate Vasomotor rhinitis 57931 03 J30.0 Obstructiv e sleep apnea syndrome 69252695 G47.33 [id number] SHOAIB CHAUHAN MD [place] [facility] [address] [facility] [place] [address] 02/24/2017 10:44:32 02/24/2017 15:37:23 Chronic recurrent sinusitis 397205481 J32.9 status post revision left MMA, left ethmoidect cynthia, left NA window (limited medial maxillecto my), left SMR inferior turbinate( see above notes) Infection by methicillin sensitive Staphylococcus aureus 513414701 A49.01 h/o Nasal polyp 28864686 J33 .9 status post revision left MMA, left ethmoidect cynthia, left NA window (limited medial maxillecto my), left SMR inferior turbinate Hypertroph y of nasal turbinates 63907808 J34.3 status post revision left MMA, left ethmoidect cynthia, left NA window (limited medial maxillecto my), left SMR inferior turbinate Vasomotor rhinitis 95823 03 J30.0 Obstructiv e sleep apnea syndrome 36283092 G47.33 [id number] DEVON ISAACS APRN [facility] [address] [place] [address] 03/15/2017 14:24:33 03/18/2017 10:46:11 Neoplasm of uncertain behavior of skin 83979655 D48.5 R/O SCC - LEFT POSTERIOR LEGSHAVE BIOPSYSEE PROCEDURE NOTE Verruca vulgaris 5500945 3 B07.9 PT EDUCATED AND TREATMENT OPTIONS DISCUSSED. CRYO X 1 Senile hyperkeratosis 39 9262140 L82.1 BENIGN APPEARANCE , PT REASSURED Solar lentiginosis 36663 2007 L81.4 BENIGN APPEARANCE , PT REASSURED Pilar cyst of scalp 4011 00377 L72.11 BENIGN APPEARANCE , PT REASSURED Rosacea 034237544 L71.9 PT EDUCATED AND TREATMENT OPTIONS DISCUSSED. DISCUSSED NO GOOD TREATMENT OPTIONS FOR ERYTHEMA. ADVISED TO CALL OFFICE IF SHE DEVELOPS PAPULAR COMPONENT Actinic keratosis 740126 007 L57.0 CRYO X 5 Epidermoid cyst 57570837 6 L72.0 BENIGN APPEARANCE , PT REASSURED Hemangioma 975788242 D18 .00 BENIGN APPEARANCE , PT REASSURED [id number] SHOAIB CHAUHAN MD [place] E[place] [address] [place] [address] 05/25/2017 07:54:05 05/25/2017 12:30:38 Obstructive sleep apnea syndrome 52323778 G47.33 Chronic re current sinusitis 805078731 J32.9 status post revision left MMA, left ethmoidect cynthia, left NA window (limited medial maxillecto my), left SMR inferior turbinate( see above notes)left endoscopic debridemen t 05/25/17 Infection by methicillin sensitive Staphylococcus aureus 481127321 A49.01 h/o Vasomotor rhinitis 35001 03 J30.0 Candidiasis of mouth 797 95099 B37.0 Screening for malignant neoplasm of breast 843080184 Z12.31 [id number] SHOAIB CHAUHAN MD [place] E[place] [address] [place] [address] 07/18/2017 10:21:12 07/18/2017 12:13:48 Chronic sinusitis 57736896 J32.9 - Left Maxillary sinus endoscopy - minimal crusting at ostia and minimal inflamatio n of antral mucosa Laryngopha ryngeal reflux 578299571 K21.9 - S/p Fundoplica tion procedure (Dr. Cesar)- fibroptic laryngosco py today shows moderate LPR/aryten oiditis Vasomotor rhinitis 79140 03 J30.0 [id number] MD SULEIMAN LENZ ENT [address] [place] [address] 10/27/2017 13:16:24 11/01/2017 08:42:35 Laryngopharyngeal reflux 339158274 K21.9 - S/p Fundoplica tion procedure (Dr. Cesar)- fibroptic laryngosco py today shows moderate LPR/aryten oiditis Vasomotor rhinitis 06273 03 J30.0 Chronic re current sinusitis 418413899 J32.9 status post revision left MMA, left ethmoidect cynthia, left NA window (limited medial maxillecto my), left SMR inferior turbinate 06/17/16-L eft Nasal/Sinu s endoscopy/ debridemen t 10/27/17= crusty, slightly purulent drainage from the left maxillary sinus Infection by methicillin sensitive Staphylococcus aureus 274101490 A49.01 h/o Obstructiv e sleep apnea syndrome 74632948 G47.33 Candidiasis of mouth 797 40566 B37.0 Screening for malignant neoplasm of breast 786608666 Z12.31 [id number] SONI MAYES PA-C [facility] [address] [address] 10/31/2017 13:13:13 11/01/2017 07:56:44 Pain of shoulder region 06359121 M25.511 Rib pain 419038154 R07.8 1 Trigger finger 748110677 1 14625 M65.273 [id number] NEVAEH PA MD [facility] [address] [place] [address] 11/08/2017 08:51:09 11/08/2017 09:53:35 Pain of shoulder region 79291201 M25.511 good rom and strength - this appears to have been a direct contusion potentiall y with an occult rib fracture, costochond ral muscle injury, or serratus injury. Prognosis is good with conservati ve treatments . I recommende d some therapy to optimize recovery and outcome. Supportive management for now Rib pain 738606535 R07.8 1 traumatic [id number] DEVON ISAACS APRN [facility] [address] [place] [address] 11/10/2017 10:20:11 11/10/2017 13:40:15 Actinic keratosis 482671491 L57.0 CRYO X 6SEE PROCEDURE NOTELEFT NASAL TIP- PATIENT DEFERS TX TODFAY MALIGNANCY RISKS DISCUSSED WILL RTC IN NEXT FEW MONTHS TO TREAT PATIENT ADVISED WHAT TO EXPECT FROM FREEZING Senile hyperkeratosis 39 0473221 L82.1 CRYO X1 TO ISK'S LEFT THIGH OTHERS ARE BENIGN IN APPEARANCE AND PT REASSURED PATIENT ADVISED WHAT TO EXPECT FROM FREEZING Solar lentiginosis 73031 2007 L81.4 BENIGN APPEARANCE , PT REASSURED Pilar cyst of scalp 4011 80820 L72.11 BENIGN APPEARANCE , PT REASSURED Rosacea 272275076 L71.9 PT EDUCATED AND TREATMENT OPTIONS DISCUSSED. DISCUSSED NO GOOD TREATMENT OPTIONS FOR ERYTHEMA. ADVISED TO CALL OFFICE IF SHE DEVELOPS PAPULAR COMPONENT Hemangioma 326828726 D18 .00 BENIGN APPEARANCE , PT REASSURED History of squamous cell carcinoma of skin 595474748 Z85.828 NO RECURRENCE Skin sensa tion disturbance 22675732 R20.9 [id number] BALA RAHMAN, PT PHYSICAL THERAPY / HAND THERAPY [facility] [address] [place] [address] 11/14/2017 15:43:57 11/15/2017 07:27:03 Contusion of rib 556160668 S20.20XD Stiff back 096620870 M25 .60 Rib pain 557603958 R07.8 1 [id number] BALA RAHMAN, PT PHYSICAL THERAPY / HAND THERAPY [facility] [address] [place] [address] 12/08/2017 10:41:37 12/12/2017 07:37:54 Contusion of rib 340998615 S20.20XD Rib pain 763153691 R07.8 1 Abnormal posture 3628980 2 R29.3 Stiff back 005856140 M25 .60 [id number] DEVON ISAACS APRN [facility] [address] [place] [address] 12/22/2017 09:55:02 12/22/2017 11:58:37 Epidermoid cyst 089184053 L72.0 INFLAMED I&D IL KENALOG 5MG/ML X 0.3ML SEE PROCEDURE NOTE CONSENT SIGNED START DOXYCYCLIN E 100MG BID X 10 DAYS-SHE HAS HX MRSA Skin sensa tion disturbance 88223634 R20.9 [id number] CL DOLAN [facility] [address] [place] [address] 01/27/2018 10:36:57 01/27/2018 13:24:40 Contusion of left knee 5198337419 0050949 S80.02XA Chondrocal cinosis of knee joint 728416918 M11.697 [id number] CL JOHNSON[facility] PULMONARY [address] [facility], [address] [place] [address] 01/30/2018 12:38:33 01/30/2018 16:42:44 Obstructive sleep apnea of adult 7653387120 103 G47.33 patient is compliant with CPAP. Her residual AHI is optimal. continue CPAP at current settings. Insomnia w ith sleep apnea 87179955 G47.00 continue Rozerem 4 milligrams by mouth nightly as needed. [id number] Duane RAMOS MD GENERAL SURGERY [address] [place] [address] 02/13/2018 10:06:25 02/13/2018 11:22:17 Epidermoid cyst of skin 524697610 L72.0 [id number] SHOAIB CHAUHAN MD [place] [address] [place] [address] 03/30/2018 14:01:39 04/03/2018 09:42:04 Chronic recurrent sinusitis 293563952 J32.9 status post revision left MMA, left ethmoidect cynthia, left NA window (limited medial maxillecto my), left SMR inferior turbinate 06/17/16-L eft Nasal/Sinu s endoscopy/ debridemen t 10/27/17= crusty, slightly purulent drainage from the left maxillary sinus Laryngopha ryngeal reflux 238844596 K21.9 - S/p Fundoplica tion procedure (Dr. 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 4956690 M65.342 left ring finger Fracture o f proximal phalanx of finger 011011968 S62.515D [id number] Duane RAMOS MD SURGERY SCHEDULE [address] [place] [address] 04/25/2018 10:28:07 04/25/2018 10:29:04 [id number] Duane RAMOS MD GENERAL SURGERY [address] [place] [address] 05/10/2018 13:21:28 05/10/2018 15:21:07 Epidermoid cyst 982389193 L72.0 [id number] YURY HUERTA MD [facility] CL[facility] [address] [facility] [address] [place] [address] 05/29/2018 12:08:28 05/29/2018 14:46:06 Low back pain 703710742 M54.5 [id number] YURY ABRAHAM MD GASTRO [address] [facility], [address] [place] [address] 09/11/2018 13:09:46 09/11/2018 15:19:42 Dysphagia 14962311 R13.10 Epigastric pain 59892252 R10.13 History of fundoplication 861674539 Z98.890 Constipation 25493292 K5 9.00 [id number] GRAHAM DYKES MD [facility] [address] [address] 09/13/2018 13:23:23 09/13/2018 14:04:37 Acquired trigger finger 5708358 M65.30 Left ring finger, recommend release, has had injections . Osteoarthr osis of the carpometacarpal joint of the thumb 45815053 M18.9 Discussed basal joint arthroplas ty, she will likely schedule after her first postop visit for the ring trigger finger, if she feels comfortabl e enough. We will obtain x-rays of the right wrist on that day [id number] YURY ABRAHAM MD SURGERY SCHEDULE [address] [place] [address] 09/25/2018 10:24:31 09/25/2018 10:30:18 [id number] SHOAIB CHAUHAN MD [place] [address] [facility],[address] [place] [address] 09/28/2018 09:44:29 09/28/2018 14:06:51 Chronic recurrent sinusitis 912986138 J32.9 status post revision left MMA, left ethmoidect cynthia, left NA window (limited medial maxillecto my), left SMR inferior turbinate 06/17/16-L eft Nasal/Sinu s endoscopy/ debridemen t 10/27/17= crusty, slightly purulent drainage from the left maxillary sinus-Left Maxillary Sinus Debridemen t 09/28/18 - culture obtained Laryngopha ryngeal reflux 044966890 K21.9 - s/p Fundoplica tion procedure (Dr. 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; 1 prior culture the culture also grew out microbacte rium Obstructiv e sleep apnea syndrome 59521082 G47.33 -using CPAP nightly Screening for malignant neoplasm of breast 524955907 Z12.31 [id number] CHANDAN BECERRIL [place] [address] [facility],[address] [place] [address] 09/28/2018 11:29:33 09/28/2018 12:13:32 [id number] GRAHAM DYKES MD SURGERY SCHEDULE [address] [place] [address] 10/03/2018 07:50:05 10/03/2018 07:53:45 [id number] GRAHAM DYKES MD [facility]I [facility] [address] [place] [address] 10/18/2018 13:40:57 10/18/2018 14:56:37 Acquired trigger finger 6420339 M65.30 Status post release and a little more painful this time, encouraged her to continue exercises, light use, follow-up 4 weeks final check. If still very symptomati c at that time consider therapy Osteoarthr osis of the carpometacarpal joint of the thumb 33804656 M18.9 No specific treatment at this point, we will get x-rays when she is ready [id number] DEVON ISAACS APRN [facility] [address] [place] [address] 11/14/2018 10:22:07 11/14/2018 11:18:42 Actinic keratosis 727392919 L57.0 CRYO X 13SEE PROCEDURE NOTERISKS OF CRYO SURGERY DISCUSSED; POST OP CARE INSTRUCTIO NS PROVIDED. VERBAL CONSENT TO TREAT GIVEN BY PATIENT. RECOMMEND RECHECK 6 MONTHS Senile hyperkeratosis 39 6989416 L82.1 BENIGN APPEARANCE , PT REASSURED Solar lentiginosis 33909 2007 L81.4 BENIGN APPEARANCE , PT REASSURED Pilar cyst of scalp 4011 04311 L72.11 BENIGN APPEARANCE , PT REASSURED Rosacea 370300202 L71.9 PT EDUCATED AND TREATMENT OPTIONS DISCUSSED. DISCUSSED COULD CONSULT ON LASER. ADVISED TO CALL OFFICE IF SHE DEVELOPS PAPULAR COMPONENT Hemangioma 279496316 D18 .00 BENIGN APPEARANCE , PT REASSURED History of squamous cell carcinoma of skin 149143470 Z85.828 NO EVIDENCE OF RECURRENCE . Skin sensa tion disturbance 07709555 R20.9 Inflamed s eborrheic keratosis 831927982 L82.0 CRYO X 1 SEE PROCEDURE NOTE RISKS OF CRYO SURGERY DISCUSSED; POST OP CARE INSTRUCTIO NS PROVIDED. VERBAL CONSENT TO TREAT GIVEN BY PATIENT. [id number] GRAHAM DYKES MD [facility]I [facility] [address] [place] [address] 11/15/2018 13:29:26 11/15/2018 14:49:08 Acquired trigger finger 0454170 M65.30 6 weeks post release, very symptomati c this point, wants to try putty for strengthen ing which I think is a good idea, [facility] hand therapy, follow-up 4 weeks final check advised, assured. [id number] GRAHAM DYKES MD [facility]I [facility] [address] [place] [address] 12/13/2018 13:06:49 12/13/2018 15:20:12 Flexor tenosynovitis of finger 160312989 M65.849 Right ring finger, 10 weeks status post trigger finger release, may be fraying of the flexor tendon and a bit of scar tissue, observe 6 weeks consider revision with possible partial FDS excision [id number] MD SULEIMAN LENZ ENT [address] [place] [address] 01/01/2019 09:47:04 01/01/2019 12:05:06 Chronic recurrent sinusitis 026719502 J32.9 status post revision left MMA, left [...] left; moderate arytenoidi tis Laryngopha ryngeal reflux 428980073 K21.9 - s/p Fundoplica tion procedure (Dr. Cesar)- fibroptic laryngosco py 01/01/19 shows moderate LPR/aryten oiditis Vasomotor rhinitis 72607 03 J30.0 Obstructiv e sleep apnea syndrome 39509651 G47.33 -using CPAP nightly Sensorineu ral hearing loss of bilateral ears 612059212 H90.3 Neck pain 45683187 M54.2 appears to be the result of moderately intense arytenoidi tis secondary to laryngopha ryngeal reflux [id number] CHANDAN ZAPIEN ENT [address] [place] [address] 01/01/2019 10:28:37 01/01/2019 11:25:03 Sensorineural hearing loss of bilateral ears 596541658 H90.3 Dysfunctio n of eustachian tube 35550858 H69.93 Bilateral tinnitus 01964 56187 102 H93.13 Otalgia 52402726 H92.01 [id number] GRAHAM DYKES MD [facility]OPEDI [facility] [address] [place] [address] 01/24/2019 13:50:52 01/24/2019 14:42:45 Flexor tenosynovitis of finger 773588781 M65.849 Left ring finger, still mildly triggering [...] call her or send results the computer. [id number] GRAHAM DYKES MD [facility]OPEDI [facility] [address] [place] [address] 04/09/2019 13:55:39 04/09/2019 15:02:23 Flexor tenosynovitis of finger 497265822 M65.849 Trigger finger, right thumb. Recommend release. Left ring finger, observe. She has some limitation s, we can discuss in the future. Osteoarthr osis of the carpometacarpal joint of the thumb 61123580 M18.9 Right thumb, recommend basal joint arthroplas ty APL suspension plasty [id number] FERNANDA CHRISTIAN, FRANDY GASTRO [address] [facility], [address] [place] [address] 04/24/2019 10:44:50 05/02/2019 09:50:41 Diarrhea 83594721 R19.7 R14.0 R15.2 R63.4 [id number] GRAHAM DYKES MD SURGERY SCHEDULE [address] [place] [address] 05/22/2019 08:12:22 05/22/2019 08:13:07 [id number] MD SULEIMAN LENZ ENT [address] [place] [address] 05/30/2019 12:45:13 05/30/2019 14:09:47 Neck pain 09529890 M54.2 appears to be the result of moderately intense arytenoidi tis secondary to laryngopha ryngeal reflux -resolved Laryngopha ryngeal reflux 318822762 K21.9 - s/p Fundoplica tion procedure (Dr. Cesar)- fibroptic laryngosco py 01/01/19 shows moderate LPR/aryten oiditis Chronic re current sinusitis 099804663 J32.9 status post revision left MMA, left [...] for culture Obstructiv e sleep apnea syndrome 26604198 G47.33 -using CPAP nightly Vasomotor rhinitis 43081 03 J30.0 Sensorineu ral hearing loss of bilateral ears 747845485 H90.3 Hypertroph y of nasal turbinates 56513990 J34.3 status post revision left MMA, left ethmoidect cynthia, left NA window (limited medial maxillecto my), left SMR inferior turbinate Chronic hoarseness 46931 38805 105 R49.0 Chronic cough 00024385 R 05 [id number] SONI MAYES PA-C [facility] [address] [place] [address] 06/04/2019 13:17:27 06/04/2019 16:43:43 Postoperative care 504239779 Z48.89 Flexor ten osynovitis of finger 882966222 M65.849 doing well status post release of the right trigger thumb. Osteoarthr osis of the carpometacarpal joint of the thumb 25474387 M18.9 doing well status post right thumb CMC arthroplas ty with suspension plasty [id number] EVELYN CANALES, OTR/L, CHT PHYSICAL THERAPY / HAND THERAPY [facility] [address] [place] [address] 06/04/2019 13:58:57 06/04/2019 14:53:21 Osteoarthrosis of the carpometacarpal joint of the thumb 85204244 M18.9 Right CMC Arthro. [id number] FERNANDA CHRISTIAN, V[employer]ATION[employer] MANAGER GASTRO [address] [facility], [address] [place] [address] 06/13/2019 11:19:47 06/13/2019 13:52:10 Irritable bowel syndrome with diarrhea 658941116 K58.0 R14.0 [id number] GRAHAM DYKES MD [facility]OPEDI CS [facility] [address] [place] [address] 07/02/2019 10:19:09 07/02/2019 10:43:18 Osteoarthrosis of the carpometacarpal joint of the thumb 35540231 M18.9 doing well status post right thumb [...] any concerns. Flexor ten osynovitis of finger 359040062 M65.849 doing well status post release of the right trigger thumb. [id number] MD SULEIMAN LENZ ENT [address] [place] [address] 09/06/2019 08:02:26 09/10/2019 14:48:56 Chronic recurrent sinusitis 452463098 J32.9 status post revision left MMA, left [...] of the maxillary sinus 09/06/2019 Chronic hoarseness 88643 25843 105 R49.0 Chronic cough 97186064 R 05 Laryngopha ryngeal reflux 290086103 K21.9 - s/p Fundoplica tion procedure (Dr. Cesar)- fibroptic laryngosco py 01/01/19 shows moderate LPR/aryten oiditis Neck pain 90405554 M54.2 appears to be the result of moderately intense arytenoidi tis secondary to laryngopha ryngeal reflux -resolved Obstructiv e sleep apnea syndrome 87608313 G47.33 -using CPAP nightly Vasomotor rhinitis 07807 03 J30.0 Sensorineu ral hearing loss of bilateral ears 361598243 H90.3 Hypertroph y of nasal turbinates 56135701 J34.3 status post revision left MMA, left ethmoidect cynthia, left NA window (limited medial maxillecto my), left SMR inferior turbinate [id number] GRAHAM DYKES MD [facility]I [facility] [address] [place] [address] 10/01/2019 07:49:17 10/01/2019 09:46:55 Osteoarthrosis of the carpometacarpal joint of the thumb 27991558 M18.9 Pain volar radial aspect thumb difficulty lifting, localized FCR tunnel, TherapyFol low-up follow-up 6 weeks to consider injection, FCR tenotomy last resort Left basal joint arthritis, injection Flexor ten osynovitis of finger 694068810 M65.849 Left ring finger trigger finger with some palmar fibrous thickening and MP contractur e, observe, stretch for now. [id number] BALA RAHMAN, PT PHYSICAL THERAPY / HAND THERAPY [facility] [address] [place] [address] 10/01/2019 09:22:41 10/02/2019 07:24:59 Osteoarthritis of joint of hand 69153741 M19.041 Pain of right hand 57787 55295 31783 M79.641 Stiffness of joint of right hand 4181908156 41173 M25.770 [id number] LOUISE ROSS PA-C [facility] [address] [place] [address] 02/13/2020 08:37:07 02/13/2020 10:10:49 Actinic keratosis 389540606 L57.0 Educated on premaligna nt Dx Cryo x 8 - f/up if any treated lesions persist After care instructio ns were given Daily [employer] SPF 30+ recommende d Senile hyperkeratosis 39 5779751 L82.1 Benign reassuranc e she has SKs on back of legs which she was reassured of today Solar lentiginosis 53611 2007 L81.4 Benign reassuranc e Rosacea 962223890 L71.9 ETR - mild Benign reassuranc e. She has been educated on laser tx option before Hemangioma 593882060 D18 .00 Benign reassuranc e History of squamous cell carcinoma of skin 960501658 Z85.828 left posterior leg- no EOR s/p Mohs- doing well [id number] GRAHAM DYKES MD SURGERY SCHEDULE [address] [place] [address] 02/14/2020 09:57:01 02/14/2020 09:58:55 [id number] SONI MYAES PA-C [facility] [address] [place] [address] 02/27/2020 10:40:58 02/27/2020 15:00:55 Osteoarthrosis of the carpometacarpal joint of the thumb 26666104 M18.9 doing well status post left thumb CMC arthroplas ty with suspension plasty. [id number] EVELYN CANALES, OTR/L, CHT PHYSICAL THERAPY / HAND THERAPY [facility] [address] [place] [address] 02/27/2020 11:53:16 02/27/2020 13:44:03 Osteoarthrosis of the carpometacarpal joint of the thumb 10432464 M18.9 left CMC Arthro. [id number] GRAHAM DYKES MD [facility] [address] [place] [address] 03/26/2020 09:19:54 03/26/2020 10:17:59 Osteoarthrosis of the carpometacarpal joint of the thumb 58840493 M18.9 doing well status post left thumb CMC arthroplas ty with suspension plasty, Mobilize at this point progressed full use as tolerated. [id number] GRAHAM DYKES MD [facility] [address] [place] [address] 05/07/2020 08:47:15 05/07/2020 09:55:45 Trigger finger 7085464967 58699 M65.30 Left ring 1.5 years status post [...] weeks or sooner for injection if needed [id number] BALA RAHMAN, PT PHYSICAL THERAPY / HAND TH[facility]APY [facility] [address] [place] [address] 05/09/2020 13:51:21 05/12/2020 07:50:35 Osteoarthrosis of the carpometacarpal joint of the thumb 10864481 M18.9 Thumb joint stiff 640645 002 M25.642 Contractur e of joint of finger of left hand due to scar 7656676452 1723928 L90.5 [id number] BALA RAHMAN, PT PHYSICAL THERAPY / [facility]APY [facility] [address] [place] [address] 05/20/2020 15:08:44 05/21/2020 09:19:22 Contracture of joint of finger of left hand due to scar 3821037859 6154740 L90.5 Osteoarthr osis of the carpometacarpal joint of the thumb 29158100 M18.9 Thumb joint stiff 067595 002 M25.990 [id number] BALA RAHMAN, PT PHYSICAL THERAPY / [facility]APY [facility] [address] [place] [address] 06/04/2020 09:28:49 06/04/2020 14:39:59 Contracture of joint of finger of left hand due to scar 4049215088 0712810 L90.5 Thumb joint stiff 809489 002 M25.642 Osteoarthr osis of the carpometacarpal joint of the thumb 41715356 M18.9 [id number] BALA RAHMAN, PT PHYSICAL THERAPY / [facility] [place] [address] 06/13/2020 12:27:47 06/13/2020 16:10:59 Osteoarthrosis of the carpometacarpal joint of the thumb 05885482 M18.9 Thumb joint stiff 246352 002 M25.223 [id number] BALA RAHMAN, PT PHYSICAL THERAPY / [facility] [place] [address] 06/23/2020 09:11:42 06/24/2020 07:54:55 Osteoarthrosis of the carpometacarpal joint of the thumb 86696787 M18.9 Thumb joint stiff 116539 002 M25.642 Pain of ri ght shoulder joint 7153870542 0134512 M25.882 [id number] BALA RAHMAN, PT PHYSICAL THERAPY / [facility] [place] [address] 07/04/2020 10:43:36 07/04/2020 16:13:23 Contracture of joint of finger of left hand due to scar 3093719164 8356844 L90.5 Pain of ri ght shoulder joint 8473811769 9119102 M25.511 Osteoarthr osis of the carpometacarpal joint of the thumb 48626387 M18.9 [id number] GRAHAM DYKES MD [facility] [address] [place] [address] 07/30/2020 14:11:02 07/30/2020 14:34:09 Trigger finger 6064876380 37746 M65.30 Right long finger, triggering . She requests surgical management after the first of the year. [id number] GRAHAM DYKES MD SURGERY SCHEDULE [address] [place] [address] 09/02/2020 06:02:12 09/02/2020 08:10:32 [id number] LOUISE ROSS PA-C [facility] [address] [place] [address] 09/03/2020 11:04:51 09/03/2020 12:11:24 History of squamous cell carcinoma of skin 695402726 Z85.828 L posterior leg- s/p Mohs, no EOR and doing well Senile hyperkeratosis 39 8105720 L82.1 Benign reassuranc e Solar lentiginosis 78553 2006 L81.4 Benign reassuranc e Rosacea 646450650 L71.9 Benign reassuranc e ETR - mild She has been educated on laser tx option before Hemangioma 869431877 D18 .00 Benign reassuranc e Pilar cyst of scalp 4011 17151 L72.11 Benign reassuranc e Actinic keratosis 857689 007 L57.0 L nasal sidewall - pt deferred tx with LN, will monitor Educated on premaligna nt Dx Cryo x 6 After care instructio ns were given Daily Broad spectrum SPF 30+ recommende d Multiple b enign melanocytic nevi 846057132 D22.9 Benign reassuranc e Neoplasm o f uncertain behavior of skin 19867179 D48.5 L clavicle - r/o BCC Shave bx taken - see procedure note Pt tolerated well, after care given Varicose v eins of lower extremity 95929046 I83.892 Benign reassuranc e Compressio n stockings 15-20 mmg Hg Basal cell carcinoma of truncal skin 517564371 C44.519 L clavicle - clinical BCC, path confirmed nodular BCC EDC x 3 - see procedure note Pt tolerated well History of actinic keratosis 6864792079 104 Z87.2 Continue to monitor Recommende d to start niacinamid e supplement 500 mg BID [id number] EVELYN CANALES OTR/L, CHT PHYSICAL THERAPY / HAND TH[facility]APY [facility] [address] [place] [address] 6 09/05/2020 09:40:17 09/05/2020 11:39:24 Trigger finger of right hand 1391525852 4851312 M65.30 LF TFR [id number] JOLLY ROUSE/L, CHT PHYSICAL THERAPY / HAND TH[facility]APY [facility] [address] [place] [address] 09/10/2020 10:52:06 09/10/2020 13:03:15 Trigger finger of right hand 0975343724 0100120 M65.30 LF TFR [id number] JOLLY ROUSE/L, T PHYSICAL THERAPY / [facility] [address] [address] [place] [address] 09/19/2020 09:41:27 09/19/2020 13:20:36 Trigger finger of right hand 9797882741 0761216 M65.30 LF TFR [id number] SONI MAYES PA-C [facility] [address] [place] [address] 09/19/2020 09:39:42 09/19/2020 10:09:36 Trigger finger 0739804296 26944 M65.331 doing well status post release of the right long trigger finger. Pain in right arm 709662 004 M79.601 ? residual pain from tourniquet ? [id number] JOLLY ROUSE/Rolo, CHT PHYSICAL THERAPY / HAND TH[facility]APY [facility] [address] [place] [address] 10/24/2020 08:19:40 10/24/2020 10:47:37 Trigger finger of right hand 7580384391 5537177 M65.30 LF TFR [id number] GRAHAM DYKES MD [facility] [address] [place] [address] 10/24/2020 08:20:12 10/24/2020 09:13:40 Trigger finger 4751167826 31176 M65.331 doing well status post release of the right long trigger finger, Advised, agree with use of tubes splint as needed to prevent PIP contractur e, otherwise will resolve when the swelling comes down. Follow-up as needed. NB left long finger triggered once, is a little tender to the touch, she may call back for treatment Pain in right arm 946827 004 M79.601 Did not mention this today apparently it has resolved [id number] VALARIE MEYERS PA-C PULMONARY [address] [facility], [address] [place] [address] 11/05/2020 08:52:36 11/05/2020 13:39:39 Obstructive sleep apnea of adult 7133629035 103 G47.33 residual AHI is optimal. I [...] t fatigue. Insomnia w ith sleep apnea 29952848 G47.00 I sent another script of [id number] milligrams by mouth nightly to use in place of melatonin if covered by insurance. [id number] LOUISE ROSS PA-C [facility] [address] [place] [address] 12/03/2020 10:12:45 12/03/2020 11:05:03 History of squamous cell carcinoma of skin 546962744 Z85.828 L posterior leg- s/p Mohs, no EOR and doing well History of malignant basal cell neoplasm of skin 391481037 Z85.828 L clavicle - Well healed ; no EOR Neoplasm o f uncertain behavior of skin 58462316 D48.5 r/o BCC vs SCC Left shoulder shave bx today wound care instructio ns given f/up per path Tx with EDC today ; pt tolerated well Patient ad vised about exposure to the sun 593923690 Z71.89 Counseled on sun protective clothing and daily UV protection with otc broad-spec trum SPF 30+ on exposed areas. Regular self-skin exams recommende d. Pt encouraged to RTC with any new/changi ng lesions. 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 Path confirmed on left shoulder; tx with EDC x 3, recheck site in 3 months [id number] LOUISE ROSS PA-C [facility] [address] [place] [address] 03/04/2021 10:28:24 03/04/2021 11:15:00 History of squamous cell carcinoma of skin 639072543 Z85.828 L posterior leg- s/p Mohs, no EOR continue to monitor Solar lentiginosis 39962 2007 L81.4 Benign reassuranc e Rosacea 657636114 L71.9 Benign reassuranc e ETR - mild She has been educated on laser tx option before Hemangioma 455293356 D18 .00 Benign reassuranc e Pilar cyst of scalp 4011 72225 L72.11 Benign reassuranc e Multiple b enign melanocytic nevi 534901048 D22.9 Benign reassuranc e Raised panchito orrheic keratosis 1774795856 28345 L82.1 Benign reassuranc e History of squamous cell carcinoma in situ 0800978990 9105 Z86.008 L shoulder - s/p EDC, no EOR continue to monitor History of malignant basal cell neoplasm of skin 655206041 Z85.828 L clavicle- s/p EDC, no EOR continue to monitor Wound of skin 382991852 T14.8XXA Abrasion from reported trauma, slow to heal due to location and diabetic statusNo evidence of cellulitis Will have continue mupirocin 2 % topical ointment Patient ad vised about exposure to the sun 306596145 Z71.89 Counseled on sun protective clothing and daily UV protection with otc broad-spec trum SPF 30+ on exposed areas. Regular self-skin exams recommende d. Pt encouraged to RTC with any new/changi ng lesions. [id number] GRAHAM DYKES MD [facility] [address] [place] [address] 03/25/2021 10:26:20 03/25/2021 11:18:59 Acquired trigger finger 4923619 M65.30 Left small finger, injected today. Call for repeat injection or release Dupuytren' s disease of palm 510422833 M72.0 Minimal contractur e observe for now Idiopathic osteoarthritis 811942105 M19.91 both hands in particular right long finger PIP joint, warm soaks, gentle exercises, follow-up as needed. [id number] CHANDA ROMERO PA-C [facility] [address] [address] 03/26/2021 09:49:17 03/26/2021 11:08:33 History of total knee arthroplasty 3614645559 105 Z96.659 We discussed conservati ve and [...] is for viscosuppl ementation Follow up prn [id number] VALARIE MEYERS PA-C PULMONARY [address] [facility], [address] [place] [address] 05/05/2021 15:50:26 05/05/2021 16:14:56 Obstructive sleep apnea of adult 7998504723 103 G47.33 we discussed CPAP recall detail. I'm going to order patient a new machine. If she does continue to use her old machine, she will discontinu e use of CPAP cleaning machine. [id number] LOUISE ROSS PA-C [facility] [address] [place] [address] 05/18/2021 10:17:14 05/18/2021 11:32:11 Raised seborrheic keratosis 2669242076 00748 L82.1 Benign reassuranc e Solar lentiginosis 54734 2006 L81.4 Benign reassuranc eActinic damage on chest, but no suspicious changing lesions. Will check again in [facility] broad-spec trum SPF 30+ on exposed areas Patient ad vised about exposure to the sun 783845193 Z71.89 Counseled on sun protective clothing and daily UV protection with . Regular self-skin exams recommende d. Pt encouraged to RTC with any new/changi ng lesions. History of malignant basal cell neoplasm of skin 703340043 Z85.828 L clavicle- s/p EDC, no EOR continue to monitor History of squamous cell carcinoma in situ 6134523414 9105 Z86.008 L shoulder - s/p EDC, no EOR continue to monitor [id number] SHOAIB CHAUHAN MD [place] [facility] [address] [place] [address] 08/10/2021 15:57:20 08/11/2021 07:51:48 Chronic recurrent sinusitis 810027830 J32.9 -2007 - Septoplast y, Left ESS [...] endoscopy 01/01/19=y ellow/gree n crusting in the left-nasal /sinus endoscopic [...] middle meatus Hypertroph y of nasal turbinates 24893657 J34.3 status post revision left MMA, left ethmoidect cynthia, left NA window (limited medial maxillecto my), left SMR inferior turbinate Laryngopha ryngeal reflux 179695826 K21.9 - s/p Fundoplica tion procedure (Dr. Cesar)- fibroptic laryngosco py 01/01/19 shows moderate LPR/aryten oiditis Neck pain 02350057 M54.2 appears to be the result of moderately intense arytenoidi tis secondary to laryngopha ryngeal reflux -resolved Obstructiv e sleep apnea syndrome 85997933 G47.33 -using CPAP nightly Vasomotor rhinitis 01150 03 J30.0 Sensorineu ral hearing loss of bilateral ears 131951907 H90.3 [id number] LOUISE ROSS PA-C [facility] [address] [place] [address] 09/23/2021 09:39:46 09/23/2021 10:38:19 Solar lentiginosis 917212851 L81.4 Benign reassuranc e Raised panchito orrheic keratosis 1768942250 54437 L82.1 Benign reassuranc e History of malignant basal cell neoplasm of skin 006282786 Z85.828 L clavicle- s/p EDC, no EOR continue to monitor History of squamous cell carcinoma in situ 9827175421 9105 Z86.008 L shoulder - s/p EDC, no EOR continue to monitor Patient ad vised about exposure to the sun 550440720 Z71.89 Counseled on sun protective clothing and daily UV protection with . Regular self-skin exams recommende d. Pt encouraged to RTC with any new/changi ng lesions. Actinic keratosis [address] x 3pt tolerated wellafter care instructio ns were given Hemangioma 441270066 D18 .00 Benign reassuranc e Severe dry skin 46538954 2 L85.3 Educated regarding bathing strategies , [...] History of squamous cell carcinoma of skin 439362384 Z85.828 L posterior leg- s/p Mohs, no EOR continue to monitor Pilar cyst of scalp 4011 96901 L72.11 Benign reassuranc e Multiple b enign melanocytic nevi 539364627 D22.9 Benign reassuranc e [id number] GRAHAM DYKES MD [facility] [address] [place] [address] 09/28/2021 10:42:16 09/28/2021 12:04:35 Trigger finger of left hand 4425803404 2359240 M65.30 Left small finger. She had a left ring finger release of the trigger finger has resultant stiffness, limited extension and skin adhesions likely related to Dupuytren' s disease. Recommend subtotal palmar fasciectom y ring finger with flexor tenolysis and possible jonathan reconstruc tion if needed, possible MC capsulecto my if needed. Therapy postoperat ively in [place] [id number] GRAHAM DYKES MD SURGERY SCHEDULE [address] [place] [address] 10/08/2021 07:21:00 10/08/2021 07:21:24 [id number] GRAHAM DYKES MD [facility] [address] [place] [address] 10/19/2021 13:32:57 10/19/2021 13:51:54 Acquired trigger finger 8221262 M65.30 Palmar fasciectom y left ring finger [...] now and consider injection if it worsens [id number] GRAHAM DYKES MD [facility] [address] [place] [address] 11/18/2021 13:09:41 11/18/2021 13:32:25 Acquired trigger finger 4544782 M65.30 Palmar fasciectom y left ring finger Tenolysis FDP left ring finger tenolysis FDS left ring finger Capsulecto my left ring finger MP joint Reconstruc tion A0 jonathan left ring finger with FDS tendon graft Release left small trigger finger 6 weeks postop doing well continue therapyFol low-up 6 weeks or may cancel if doing well. Encouraged to continue intrinsic stretch [id number] FERNANDA CHRISTIAN APRN GASTR[facility] [address] [facility], [address] [place] [address] 11/18/2021 11:26:55 11/19/2021 07:36:48 Chronic idiopathic constipation 04569044 K59.04 Trial of Linzess, call office in 1-2 weeks if helping, not helping.Re view of CT scan A/P with IV, PO contrast, negative.R efer to cardiology , dizziness. Upper endoscopy recommende d, history of hiatal hernia with Sierra repair.Fol low up 2-3 weeks after EGD, call for any questions or concerns. Patient verbalized understand ing. [id number] KAMILAH LOPEZ APRN CARDIOLOG Y [facility] [address] [facility] ,[address] [place] [address] 11/19/2021 09:46:23 11/23/2021 09:56:46 Near syncope 283059212 R55 Ar hernández notes that these episodes of near fainting, [...] family history of first-degr ee relatives with [facility]. Ar betty had a duplex Doppler study of carotid and vertebral arteries performed on 12/23/2008 due to dizziness and anomaly of the left side of neck. R ight ICA with mild turbulence .Systolic velocity up to 111 cm/s. The right ECA and CCA normal velocities , normal waveforms, normal ICA/CCA systolic ratio. Moderate homogenous hyperechoi c plaque at the right ICA [id number] 9% stenosis. L eft ICA with mild turbulence .Upper normal velocity of 123 cm/s systolic. The left ECA in the left CCA with normal ratios. Moderate homogenous hypoechoic plaqueyiel ds 20-49% stenosis. A pparently there was some history of minor anomaly at the left CCA. 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 According to the Doppler performed in 2008, this was no longer evident. Cardiovasc ular risk assessment (10 y ear, women) score: 20.1% 3. Echo -needs to be with bubble study, as the patient is symptomati c with near fainting episodes. Obstructiv e sleep apnea syndrome 42296834 G47.33 P atient is known to Valarie Meyers PA-C from pulmonary medicine for her [facility]I. She has been awaiting a new machine. Sleep study performed on 07/11/2015 revealed:1 . Severe obstructiv e sleep apnea. The AIH was 34.7. 2. The patient has very poorly consolidat ed sleep. 3. The patient has significan tly elevated periodic limb movement index. Essential hypertension 02840113 I10 Blood pressure in the office today is 119/68. This appears stable on losartan 50 mg daily. Palpitations 63834702 R0 0.2 14-day E patch ordered, as these palpitatio ns are not occurring daily. Supraventr icular tachycardia 7097092 I47.1 S he does have a history of SVT and short pauses evidenced on her Holter monitor performed on 07/12/2008 . T he patient's average heart rate was 89 bpm2 pauses exceeding 2.0 seconds were noted. The longest pause of 2. 2 seconds occurred at 10:14 PM. 1 69 ventricula r ectopies, which represente d less than 1% of the total beat count, were noted. 1 supravent ricular ectopy which represente d less than 1% of the total beat count, were noted. I n channel 1, a single episode of ST segment depression occurred at 9:46 AM with a maximum depression of -1.1 mm. S he is currently on propranolo l 80 mg extended release once daily. Overweight 321966821 E66 .3 BMI 25.6. Counseling discussed Dyspnea on exertion 6084 5006 R06.09 Patient had a previous echocardio gram performed 02/09/2011 that revealed:1 . Normal sinus chamber and motion. 2. Normal left ventricula r systolic function E F appeared to be 70%. 3. No pericardia [...] and normal right ventricula r systolic pressures. [id number] BEN HERNANDEZ MD [facility] [address] ,[address] [place] [address] 5 11/19/2021 12:18:51 11/19/2021 12:19:10 Palpitations 02136419 R00.2 [id number] BEN HERNANDEZ MD ECHO VASCULAR LAB CLOSED [address] [place] [address] 5 12/03/2021 12:53:02 12/04/2021 08:15:47 Mitral valve prolapse 740982666 I34.1 Syncope 053960950 R55 [id number] TONIE CARRINGTON MD ECHO VASCULAR LAB [place] [address] 5 12/03/2021 12:53:49 12/04/2021 08:15:05 Carotid bruit 331327402 R09.89 [id number] KAMILAH LOPEZ, [employer]OR [employer]ATIONSH[employer] MANAGER CARDIOLOG Y [address] [place] [address] 5 12/11/2021 10:18:29 12/14/2021 08:52:23 Near syncope 657031534 R55 P atient notes that these episodes of near fainting, [...] bubble study Cardiovasc ular risk assessment (10 y ear, women) score: 20.1% Palpitations 40036397 R0 0.2 14-day E patch results revealed rare ventricula r ectopy. No pauses. No A. fib/flutte r. P betty states that her palpitatio ns are well controlled on propranolo l 80 mg extended release daily. Supraventr icular tachycardia 1919576 I47.1 S he does have a history of SVT and short pauses evidenced on her Holter monitor performed on 07/12/2008 . T he patient's average heart rate was 89 bpm2 pauses exceeding 2.0 seconds were noted. The longest pause of 2. 2 seconds occurred at 10:14 PM. 1 69 ventricula r ectopies, which represente d less than 1% of the total beat count, were noted. 1 supravent ricular ectopy which represente d less than 1% of the total beat count, were noted. I n channel 1, a single episode of ST segment depression occurred at 9:46 AM with a maximum depression of -1.1 mm. S he is currently on propranolo l 80 mg extended release once daily, and reports that this is helping with great relief. Essential hypertension 03184294 I10 Blood pressure in the office today is 118/60. The last visit it was 119/68. This appears stable on losartan 50 mg daily. Obstructiv e sleep apnea syndrome 37408733 G47.33 P betty is known to Valarie Meyers PA-C from pulmonary medicine for her NHI. She has been awaiting a new machine. Sleep study performed on 07/11/2015 revealed:1 . Severe obstructiv e sleep apnea. The AIH was 34.7.2. The patient has very poorly consolidat ed sleep.3. The patient has significan tly elevated periodic limb movement index. T he patient states that her CPAP machine has been recalled. I have recommende d for her to meet with Valarie Meyers again to undergo another sleep apnea study. Overweight 809925014 E66 .3 BMI stable at 25.7. The last visit it was 25.6. Diet; I counseled patient on maintainin g a less than 2 g sodium restrictio n diet plan. She is also agreeable to not add salt additional ly to her food. We discussed weight reduction as well during our consultati on today. [id number] GRAHAM CORONA MD UROLOGY SB CLOSED [address] [place] [address] 12/14/2021 10:45:13 12/14/2021 12:39:30 Cyst of kidney 093041628 N28.1 Right flank pain 1139564 09 R10.9 [id number] YURY ABRAHAM MD SURGERY SCHEDULE [address] [place] [address] 1 12/18/2021 11:14:51 12/18/2021 11:15:52 [id number] GRAHAM DYKES MD [facility]OPEDI CS [facility] [address] [place] [address] 12/30/2021 11:44:22 12/30/2021 12:17:04 Acquired trigger finger 4475996 M65.30 Palmar fasciectom y left ring finger Tenolysis FDP left ring finger tenolysis FDS left ring finger Capsulecto my left ring finger MP joint Reconstruc tion A0 jonathan left ring finger with FDS tendon graft Release left small trigger [id number] weeks postop, stable. Advised, assured, follow-up as needed if any change. [id number] C LEONEL PAYNE PA-C [facility]EDI [facility] [address] [place] [address] 01/22/2022 09:14:49 01/22/2022 09:41:44 Osteoarthritis of knee 273345222 M17.9 [id number] FERNANDA CHRISTIAN APRN GASTRO [place] [address] [facility], [address] [place] [address] 01/06/2022 11:11:20 01/06/2022 13:03:58 Delayed gastric emptying 749651698 K30 4 hour gastric emptying scan.Trial of Motegrity, take as discussed, call office in 1-2 weeks if helping. Abdominal bloating 22752 9008 R14.0 Gastroesop hageal reflux disease without esophagitis 260177354 K21.9 Chronic id iopathic constipation 06493776 K59.04 [id number] LOUISE ROSS PA-C DERMATOLO [facility] [address] [place] [address] 03/09/2022 11:07:23 03/09/2022 13:04:23 History of squamous cell carcinoma of skin 926270559 Z85.828 L posterior leg s/p Mohs - No EOR, continue to monitor History of malignant basal cell neoplasm of skin 054977921 Z85.828 L clavicle s/p EDC - No EOR, continue to monitor History of squamous cell carcinoma in situ 0101291772 9105 Z86.008 L shoulder s/p EDC - No EOR, continue to monitor Solar lentiginosis 53584 2007 L81.4 Benign reassuranc e Raised panchito orrheic keratosis 5348466556 23773 L82.1 Benign reassuranc e Hemangioma 434489083 D18 .00 Benign reassuranc e Multiple b enign melanocytic nevi 639201342 D22.9 Benign reassuranc e Pilar cyst of scalp 4011 34679 L72.11 Benign reassuranc e Actinic keratosis 841237 007 L57.0 Educated patient on pre-malign ant dxTreated today with LN x 2See procedure notePatien t tolerated wellAfter care instructio ns were given Patient ad vised about exposure to the sun 973621566 Z71.89 Counseled on sun protective clothing/h ats and daily UV protection with otc broad-spec trum SPF 30+ on exposed areas. Regular self-skin exams recommende d. Pt encouraged to RTC with any new/changi ng lesions. Neoplasm o f uncertain behavior of skin 44874259 D48.5 7 mm pink, scaly papule on the L calfr/o - SCC Shave removal with ED to baseSee procedure noteWound care was givenConse nt was signedPhot o takenF/up per path [id number] LOUISE ROSS PA-C [facility] [address] [place] [address] 03/31/2022 15:39:00 04/01/2022 08:08:33 Squamous cell carcinoma of skin of lower extremity 883271846 C44.729 L calfBx proven superficia lly invasive well differenti ated SCC per pathEDC x 3 todaySee procedure notePatien t tolerated wellAfter care instructjosias rodriguez givenF/up 3 months [id number] VALARIE MEYERS PA-C PULMONARY [address] [facility], [address] [place] [address] 06/30/2022 10:30:38 06/30/2022 11:41:29 Obstructive sleep apnea syndrome 63058445 G47.33 patient would like to discontinu e CPAP. She has difficulty sleeping with the machine at times. She has lost weight since her original sleep study approximat iván 10% of her body weight. A repeat sleep study has been ordered. Insomnia w ith sleep apnea 70824739 G47.00 Continue Rozarem as needed. [id number] LOUISE ROSS PA-C [facility] [address] [place] [address] 07/05/2022 10:45:16 07/05/2022 11:11:05 History of squamous cell carcinoma of skin 127543086 Z85.828 L posterior leg s/p Mohs - No EOR, continue to monitorMos t recently, L calf s/p EDC 2021 - No EOR, continue to monitor Patient ad vised about exposure to the sun 552635442 Z71.89 Counseled on sun protective clothing/h ats and daily UV protection with [facility] broad-spec trum SPF 30+ on exposed areas. Regular self-skin exams recommende d. Pt encouraged to RTC with any new/changi ng lesions. 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 Pt would like a refills of Elidel 1% topical cream for her Clarence's rash which flares in winterTrie d tacrolimus 0.1% ointment which was insurance preferred but she does not feel it works as well Dog bite - wound 4471080 05 T14.8XXA Pt reports recent dog bite on L wrist and R wrist from her new puppy, tooth punctured skinHas been treating with topical antibiotic ointment - not healingSta rt Augmentin as directed [id number] LOUISE ROSS PA-C [facility] [address] [place] [address] 07/11/2023 13:20:42 07/11/2023 14:29:02 History of squamous cell carcinoma of skin 922698904 Z85.828 L posterior leg s/p Mohs - No EOR, continue to monitorMos t recently, L calf s/p EDC 2021 - No EOR, continue to monitor History of malignant basal cell neoplasm of skin 153514297 Z85.828 L clavicle s/p EDC - No EOR, continue to monitor History of squamous cell carcinoma in situ 9373028265 9105 Z86.008 L shoulder s/p EDC - No EOR, continue to monitor Solar lentiginosis 11168 2007 L81.4 Benign reassuranc e Raised panchito orrheic keratosis 5167302114 83602 L82.1 Benign reassuranc e Hemangioma 339364502 D18 .00 Benign reassuranc e Multiple b enign melanocytic nevi 722464045 D22.9 Benign reassuranc e Pilar cyst of scalp 4011 26941 L72.11 Benign reassuranc e Actinic keratosis 930606 007 L57.0 Chronic w/ exacerbati on LN x 1 R anterior upper armPatient tolerated wellCryosu [facility] handout providedSe e procedure note Mild actinic damage on nose - start fluorourac il 5% topical cream BID for 2-3 weeks - se/r/b discussed, handout providedWi ll not start this week, she is singing in a leonardo concert. Will treat sometime this Winter Patient ad vised about exposure to the sun 256759346 Z71.89 Counseled on sun protective clothing/h ats and daily UV protection with otc broad-spec trum SPF 30+ on exposed areas. Regular self-skin exams recommende d. Pt encouraged to RTC with any new/changi ng lesions. Neoplasm o f uncertain behavior of skin 92679408 D48.5 L lateral knee - R/O eczema vs AK vs superficia l NMSCPhoto taken today for future comparison Will treat with pimecrolim us 1% cream for 2-3 weeks if no improvemen t then treat with fluorourac il 5% topical cream when she treats her nose. If no reaction after 5FU cream then plan for biopsy. Dry skin dermatitis 2600 14708 L85.3 Start ammonium lactate 12% cream QDAdvised to try and stop scratching skin. Tap skin and use cool compresses [id number] MD SULEIMAN LENZ ENT [address] [place] [address] 09/02/2022 10:46:14 09/02/2022 12:14:11 Chronic recurrent sinusitis 253810417 J32.9 -2007 - Septoplast y, Left ESS [...] left maxillary sinus ostia Laryngopha ryngeal reflux 206917138 K21.9 - s/p Fundoplica tion procedure (Dr. Cesar) x 2-01/01/19 - fiberoptic laryngosco py - shows moderate LPR/aryten oiditis Obstructiv e sleep apnea syndrome 20406640 G47.33 -using CPAP nightly Vasomotor rhinitis 47096 03 J30.0 Sensorineu ral hearing loss of bilateral ears 554990088 H90.3 Thyroid nodule 885310555 E04.1 -09/02/22 - Lower right lobe 1cm nodule vs cyst - sl tender [id number] SONI MAYES PA-C ORTHOPEDI CS [facility] [address] [place] [address] 10/13/2022 12:42:48 10/13/2022 14:27:08 Pain of right elbow joint 6734379515 5684573 M25.521 Right late ral elbow tendinopathy 9953086455 57609 M77.11 [id number] BALA RAHMAN, PT PHYSICAL THERAPY / HAND THERAPY [facility] [address] [place] [address] 10/20/2022 12:01:53 10/21/2022 15:24:20 Pain of right shoulder joint 1368485108 1583426 M25.511 Tendinitis of right forearm 2569122986 6834609 M67.88 Atrophy of muscle of right shoulder 0588788388 23161 M62.511 [id number] BALA RAHMAN, PT PHYSICAL THERAPY / HAND THERAPY [facility] [address] [place] [address] 11/08/2022 09:14:47 11/11/2022 15:33:40 Pain of right shoulder joint 1936925599 0895134 M25.511 Lateral epicondylitis 20 7934390 M77.11 Abnormal posture 2202520 2 R29.3 Spasm 98473809 R25.2 [id number] SHOAIB CHAUHAN MD [place] ENT [address] [place] [address] 12/09/2022 14:10:58 12/09/2022 15:51:05 Chronic recurrent sinusitis 751123443 J32.9 -2008 - Septoplast y, Left ESS Dr SUMMERS-05/2016 [...] left maxillary sinus ostia Laryngopha ryngeal reflux 178765539 K21.9 - s/p Fundoplica tion procedure (Dr. Cesar) x 2-01/01/19 - fiberoptic laryngosco py - shows moderate LPR/aryten oiditis Thyroid nodule 920065524 E04.1 -09/02/22 - Lower right lobe 1cm nodule vs cyst - sl tenderUltr asound dos 09/08/22 from [facility]= no thyroid nodule or mass identified . Small right neck lymph nodes, nonspecifi c and likely reactive noted. Obstructiv e sleep apnea syndrome 54958928 G47.33 -using CPAP nightly Vasomotor rhinitis 11358 03 J30.0 Sensorineu ral hearing loss of bilateral ears 279212150 H90.3 Crusted nasal mucosa 277 021308 R09.89 12/09/22- left maxillary ostium [id number] BALA RAHMAN, PT PHYSICAL THERAPY / HAND THERAPY [facility] [address] [place] [address] 11/16/2022 11:55:02 11/18/2022 09:37:55 Pain of right shoulder joint 4260308873 6029099 M25.511 Lateral epicondylitis 20 7968768 M77.11 Abnormal posture 5490624 2 R29.3 [id number] GRAHAM DYKES MD [facility]I [facility] [address] [place] [address] 11/24/2022 11:53:14 11/24/2022 12:17:31 Tendinitis of right rotator cuff 5650787854 9160128 M67.813 Possible rerupture, recommend MR arthrogram and follow-up with Dr. 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 No evidence of recurrence most recent heart monitor. continue with BB. Obstructiv e sleep apnea syndrome 27624435 G47.33 Not currently treating. Hypertensive disorder 38 148810 I10 Currently on losartan, currently at 50mg BID.Will add low dose HCTZ to regimen Near syncope 429784596 R 55 Ongoing history of near-synco pe. Cardiac workup has been unrevealin g. EKG today is normal.Hx of breast CA.Recomme nd brain MRI to r/o neurologic al abnormalit y. Dizziness 441569375 R42 Ongoing issues with dizziness. Her cardiac workup is normal. Carotid studies are normal.She does have chronic sinusitis issues follows with ENT, I have encouraged her to discuss these symptoms with him. [id number] PUSHPA RAMIREZ MD [facility]EDI CS [facility] [address] [place] [address] 12/27/2022 09:21:09 12/27/2022 11:39:44 Pain of right shoulder joint 3575851274 6074568 M25.511 [id number] LOUISE ROSS PA-C [facility] [address] [place] [address] 01/06/2023 09:35:45 01/06/2023 10:36:20 History of squamous cell carcinoma of skin 410614141 Z85.828 L posterior leg s/p Mohs - No EOR, continue to monitorMos t recently, L calf s/p EDC 2021 - No EOR, continue to monitor Patient ad vised about exposure to the sun 380030769 Z71.89 Counseled on sun protective clothing/h ats and daily UV protection with otc broad-spec trum SPF 30+ on exposed areas. Regular self-skin exams recommende d. Pt encouraged to RTC with any new/changi ng lesions. History of malignant basal cell neoplasm of skin 131956548 Z85.828 L clavicle s/p EDC - No EOR, continue to monitor History of squamous cell carcinoma in situ 7460330634 9105 Z86.008 L shoulder s/p EDC - No EOR, continue to monitor Solar lentiginosis 75243 2007 L81.4 Benign reassuranc e Raised panchito orrheic keratosis 2344127736 59670 L82.1 Benign reassuranc e Hemangioma 043087576 D18 .00 Benign reassuranc e Multiple b enign melanocytic nevi 417295084 D22.9 Benign reassuranc e Pilar cyst of scalp 4011 48933 L72.11 Benign reassuranc e Actinic keratosis 701043 007 L57.0 Educated patient on pre-malign ant dxTreated today with LN x 2See procedure notePatien t tolerated wellAfter care instructio ns were given mild actinic damage on nose patient bothered by texture plan to use 5FU cream on nose in the Fall/Winte r [id number] ANUEL YEUNG MD [facility]OPEDI CS [facility] [address] [facility] [place] [address] 01/31/2023 09:08:00 01/31/2023 09:58:32 Sprain of left ankle 0521429318 0580147 S93.402A ATFL sprain, no sign of fracture.n on-op tx, RICE, wbat, PT referal provided for 1-2 visit for edema/swel ling control, ankle rom, prop training. Idiopathic peripheral neuropathy 66952203 G60.9 rec continue/c omplete evaluation by her PCP/outsid e independent living specialist care with [facility]. max 15 min [id number] VENKATA MORRIS APRN CARDIOLOG Y [facility] [address] [place] [address] ,[address] [place] [address] 02/02/2023 13:40:52 02/03/2023 04:51:37 Dizziness 336449244 R42 Ongoing issues with dizziness. Her cardiac workup is normal. Carotid studies are normal. Brain MRI with no acute findings, chronic sinusitis noted.She does have chronic sinusitis issues follows with ENT, I have encouraged her to discuss these symptoms with ENT for their opinion as well. Supraventr icular tachycardia 9748700 I47.1 Stable. No evidence of recurrence most recent heart monitor. continue with BB. Obstructiv e sleep apnea syndrome 16889499 G47.33 Not currently treating. Working with pulmonary to restart treatment. Hypertensive disorder 38 808773 I10 Currently on losartan, currently at 50mg BID, HCTZ 12.5mg daily.Pres sures are stable. Type 2 dereje betes mellitus 20951200 E11.9 PCP monitoring . Chest pain 74577166 R07. 9 Normal stress test in October, still with ongoing CP.More frequent in nature. Pain is non-exerti onal, but still concerning .CCTA will be obtained to further assess coronary anatomy. ischemia workup was normal.Fol low up in 4 months Dyspnea on exertion 6084 5006 R06.09 She will discuss dyspnea with pulmonary [id number] FRANDY ANDREW ENT [address] [place] [address] 02/11/2023 08:35:16 02/11/2023 11:28:51 Chronic recurrent sinusitis 767744957 J32.9 -2007 - Septoplast y, Left ESS [...] left maxillary sinus ostia Laryngopha ryngeal reflux 776219907 K21.9 - s/p Fundoplica tion procedure (Dr. Cesar) x 2-01/01/19 - fiberoptic laryngosco py - shows moderate LPR/aryten oiditis Thyroid nodule 130212403 E04.1 -09/02/22 - Lower right lobe 1cm nodule vs cyst - sl tenderUltr asound dos 09/08/22 from [facility]= no thyroid nodule or mass identified . Small right neck lymph nodes, nonspecifi c and likely reactive noted. Obstructiv e sleep apnea syndrome 68806263 G47.33 -using CPAP nightly Vasomotor rhinitis 78114 03 J30.0 Sensorineu ral hearing loss of bilateral ears 921355252 H90.3 - Audio 02/11/23: stable compared to 2019 Postural dizziness 88069 7008 R42 - suspect cardiac component or orthostati c hypotensio n- 02/11/23: ears clear, Terra-Hallpi kes negative, hearing loss symmetric, tympanomet ry WNL Orthostati c hypotension 98258287 I95.1 Impacted c erumen in right ear 4968381867 561993 H61.21 [id number] TAMIR AMOR, AUD [place] ENT [address] [place] [address] 02/11/2023 09:39:36 02/11/2023 12:20:06 Sensorineural hearing loss of bilateral ears 128726334 H90.3 Bilateral tinnitus 06489 28032 102 H93.13 [id number] CL JOHNSON-Asia PULMONARY [address] [facility], [address] [place] [address] 02/23/2023 09:36:10 02/23/2023 10:07:33 Obstructive sleep apnea of adult 2325201471 103 G47.33 home sleep study discussed in detail. This no longer shows NHI. Patient will discontinu e CPAP. Insomnia 991957920 G47.0 0 Continue Rozerem as needed. [id number] VALARIE MEYERS PA-C PULMONARY [address] [facility], [address] [place] [address] 04/19/2023 08:53:21 04/20/2023 07:57:55 Dyspnea on exertion 44754085 R06.09 Chest x-ray is normal today. PFTs are normal. No obstructio n noted. She reports having recent labs with no anemia. I did request a copy of her stress test and echo that was performed at [facility]. Obstructiv e sleep apnea syndrome 46978650 G47.33 Eliminated with weight loss.. [id number] GRAHAM DYKES MD [facility]OPEDI [facility] [address] [place] [address] 04/20/2023 15:39:49 04/20/2023 16:12:40 Bilateral carpal tunnel syndrome 7146691762 4063138 G56.03 Left is somewhat progressiv e the right just started tingling in the past day or 2. Recommende d wrist splints, recommende d hand therapy, she will follow-up if she does not get relief we will do a diagnostic carpal tunnel injection to see if it is from carpal tunnel syndrome or her sensorimot or polyneurop athy. [id number] VENKATA MORRIS APRN CARDIOLOG Y [facility] [address] [place] [address] ,[address] [place] [address] 07/06/2023 12:46:21 07/11/2023 04:15:36 Dizziness 521476101 R42 Recheck CBC. Patient notes her daughter just had abnormal CBC. Supraventr icular tachycardia 2598814 I47.10 Stable. No evidence of recurrence most recent heart monitor. continue with BB. Obstructiv e sleep apnea syndrome 88473169 G47.33 Not currently treating. Working with pulmonary to restart treatment. Hypertensive disorder 38 600115 I10 Currently on losartan, currently at 50mg BID, HCTZ 12.5mg daily.Pres sures are stable. Type 2 dereje betes mellitus 58124612 E11.9 PCP monitoring . Coronary arteriosclerosis 99975546 I25.10 Normal stress test in October, CP now resolved. CCTA done at [facility] gat ston score = 161Left [...] value of 0.92. Keep annual follow up. [id number] LOUISE ROSS PA-C [facility] [address] [place] [address] 01/30/2024 14:55:41 01/30/2024 15:57:27 History of squamous cell carcinoma of skin 436433758 Z85.828 L posterior leg s/p Mohs - No EOR, continue to monitorMos t recently, L calf s/p EDC 2021 - No EOR, continue to monitor History of malignant basal cell neoplasm of skin 378636396 Z85.828 L clavicle s/p EDC - No EOR, continue to monitor History of squamous cell carcinoma in situ 4475251470 9105 Z86.008 L shoulder s/p EDC - No EOR, continue to monitor Solar lentiginosis 58273 2006 L81.4 Benign reassuranc e Raised panchito orrheic keratosis 5497414823 44818 L82.1 Benign reassuranc e Hemangioma 588772156 D18 .00 Benign reassuranc e Multiple b enign melanocytic nevi 371248577 D22.9 Benign reassuranc e Pilar cyst of scalp 4011 73527 L72.11 Benign reassuranc eShe states they have [...] 1, L cheek x 1Patient tolerated wellCryosu ery handout providedSe e procedure note Actinic damage on nose - treated with 5FU cream BID for 2.5 weeks with an inflammato ry response in August 2023. Pt tolerated well. Nose is smooth today. Dry skin dermatitis 2600 27367 L85.3 Continue ammonium lactate 12% cream QD. Does not require refills at this time. Patient ad vised about exposure to the sun 811464167 Z71.89 Counseled on sun protective clothing/h ats and daily UV protection with otc broad-spec trum SPF 30+ on exposed areas. Regular self-skin exams recommende d. Pt encouraged to RTC with any new/changi ng lesions. Family his tory of malignant melanoma 885962178 Z80.7 Sister [id number] PUSHPA RAMIREZ MD ORTHOPEDI CS [facility] [address] [place] [address] 07/14/2023 10:21:30 07/14/2023 11:59:40 Pain of right shoulder joint 3201847672 4724923 M25.511 Biceps tendinitis 877322 007 M75.21 [id number] SHOAIB CHAUHAN MD [place] E[place] [address] [place] [address] 09/08/2023 13:02:33 09/08/2023 15:20:11 Chronic recurrent sinusitis 973960680 J32.9 -2007 - Septoplast y, Left ESS [...] left maxillary sinus ostia Laryngopha ryngeal reflux 417913522 K21.9 -2008 - s/p Sierra Fundoplica tion [...] of arytenoidi tis from LPR Thyroid nodule 891517613 E04.1 -09/02/22 - Lower right lobe sl tender- 09/08/22 Thyroid US [facility]= no thyroid nodule or mass identified . Small right neck lymph nodes, nonspecifi c and likely reactive noted. Obstructiv e sleep apnea syndrome 07596818 G47.33 -using CPAP nightly Vasomotor rhinitis 45879 03 J30.0 Sensorineu ral hearing loss of bilateral ears 318094067 H90.3 Neck pain 17593533 M54.2 -09/08/22 -Thyroid ultrasound at [facility] n o thyroid nodules or masses identified -04/2023 - Onset of intermitte nt right lower neck pain- - Neck ultrasound years to [facility] nremarkabl e appearance in the designated painful area; several [...] the result of arytenoidi tis from LPR [id number] NEIL LANG PA-C [facility]THOPEDI [facility] [address] [place] [address] 09/20/2023 14:45:47 09/20/2023 15:59:33 Osteoarthritis of right knee joint 6537913024 06850 M17.11 ASSESSMENT : DJD RIGHT knee PLAN: [...] is for viscosuppl ementation Follow up prn [id number] FERNANDA CHRISTIAN APRN GASTRO [address] [facility], [address] [place] [address] 10/06/2023 11:19:51 10/06/2023 12:13:18 Gastroesophageal reflux disease without esophagitis 316093533 K21.9 Trial of famotidine , can use 1-2 times per day.Discus sed dietary triggers, elevating HOB, no eating within 2 hours of laying down.Follo w up 2-3 weeks after EGD, colonoscop y. Feeling of lump in throat 351100127 R09.89 Upper endoscopy, colonoscop y recommende d. History of Sierra fundoplica tion. Swallowing painful 84094 002 R13.19 Altered yusuf wel function 58661620 R19.4 [id number] YURY ABRAHAM MD SURGERY SCHEDULE [address] [place] [address] 10/18/2023 13:18:08 10/18/2023 13:18:59 [id number] [place] [address] [place] [address] 11/08/2023 09:55:14 11/10/2023 13:54:55 Polyp of cecum 931623179 D12.0 73-year-ol d female seen for evaluation [...] bowel prep and to be done at [facility] with pass evaluation . [id number] LU WRIGHT MD GENERAL SURGERY [address] [place] [address] 12/08/2023 10:16:09 12/09/2023 05:01:26 Polyp of cecum 716969992 D12.0 73-year-ol d female seen for evaluation [...] bowel prep and to be done at [facility] with pass evaluation .12/07-Stat us post laparoscop ic appendecto my for appendicea l orifice polyp. Noted tubular adenoma on path. Negative margins. Healing well tolerating diet and pain controlled . Discussed ongoing lifting precaution s. Repeat colonoscop y per GI as planned. [id number] LOUISE ROSS PA-C [facility] [address] [place] [address] 08/01/2024 14:41:06 08/01/2024 15:31:06 History of squamous cell carcinoma of skin 437458113 Z85.828 L posterior leg s/p Mohs - No EOR, continue to monitorMos t recently, L calf s/p EDC 2021 - No EOR, continue to monitor History of malignant basal cell neoplasm of skin 176251442 Z85.828 L clavicle s/p EDC - No EOR, continue to monitor History of squamous cell carcinoma in situ 7193657906 9105 Z86.008 L shoulder s/p EDC - No EOR, continue to monitor Solar lentiginosis 31299 2006 L81.4 Benign reassuranc e Raised panchito orrheic keratosis 6665116798 66308 L82.1 Benign reassuranc e Hemangioma 925859829 D18 .00 Benign reassuranc e Multiple b enign melanocytic nevi 937667500 D22.9 Benign reassuranc e Pilar cyst of scalp 4011 98933 L72.11 Benign reassuranc eShe states they have grown but she does not want to have them excised at this time. 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 Family his tory of malignant melanoma 790817895 Z80.7 Sister Patient ad vised about exposure to the sun 182864216 Z71.89 Counseled on sun protective clothing/h ats and daily UV protection with otc broad-spec trum SPF 30+ on exposed areas. Regular self-skin exams recommende d. Pt encouraged to RTC with any new/changi ng lesions. 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 Discussed getting a silk pillow case vs alternatin g sides of head she sleeps on or purchase [facility] cut out pillow Neoplasm o f uncertain behavior of skin 41145071 D48.5 R lateral lower leg - r/o lichenoid keratosis vs BCC Shave bx taken todaySee procedure notePhoto taken, consent signedWoun d care instructio michael providedf/ up per path History of actinic keratosis 3419179494 104 Z87.2 Previously treated with cryotherap y and 5FU topical cream [id number] MD SULEIMAN LENZ ENT [address] [place] [address] 02/09/2024 08:46:43 02/15/2024 16:13:50 Neck pain 25128029 M54.2 -09/08/22 -Thyroid ultrasound at [facility] n o thyroid nodules or masses identified -04/2023 - Onset of intermitte nt right lower neck pain- - Neck ultrasound years to [facility] u nremarkabl e appearance in the designated painful area; several [...] - no complaints of Laryngopha ryngeal reflux 780748152 K21.9 -2008 - s/p Sierra Fundoplica tion [...] return to singing. Chronic re current sinusitis 144495102 J32.9 -2007 - Septoplast y, Left ESS [...] and from the frontal recess. Sent for culture-1/ 9/20 -Nasal endoscopy with debridemen t of crusting [...] healthy. Rx- Gentamycin irrigate BID Thyroid nodule 251623411 E04.1 -09/02/22 - Lower right lobe sl tender- 09/08/22 Thyroid US [facility]= no thyroid nodule or mass identified . Small right neck lymph nodes, nonspecifi c and likely reactive noted. Obstructiv e sleep apnea syndrome 85740101 G47.33 -using CPAP nightly Vasomotor rhinitis 57627 03 J30.0 Sensorineu ral hearing loss of bilateral ears 566503381 H90.3 Tam's esophagus 3029 68842 K22.70 02/09/24- managed with Dr. Abraham [id number] NEIL LANG PA-C ORTHOPEDI [facility] [address] [place] [address] 06/05/2024 10:56:47 06/05/2024 11:33:30 Osteoarthritis of right knee joint 4597882199 59984 M17.11 ASSESSMENT : DJD RIGHT knee PLAN:We [...] is for viscosuppl ementation Follow up prn [id number] VENKATA MORRIS APRN CARDIOLOG Y [address] ,[address] [place] [address] 07/06/2024 10:43:31 07/06/2024 14:32:12 Coronary arteriosclerosis 53112011 I25.10 CCTA done at [facility] gat ston score = 161Left [...] be noted on stress Supraventr icular tachycardia 4549619 I47.10 Stable. No evidence of recurrence most recent heart monitor. continue with BB. Obstructiv e sleep apnea syndrome 99027808 G47.33 Not currently treating Hypertensive disorder 38 357606 I10 Stable.Low sodium diet. Type 2 dereje betes mellitus 69673106 E11.9 PCP monitoring . Hyperlipidemia 76953071 E78.5 Notes she cannot take statin, notes it caused peripheral neuropathy Will obtain labs from PCP office. Discussed importance of tight control of lipids d/t Hx of CADLDL goal < 55, consider PSCK9-I Chest pain 34355501 R07. 9 Reported todayHx of non-obs CAD as noted aboveIsche tristen workup pending, see above plan [id number] YURY MORLEAND MD [facility] [address] ,[address] [place] [address] 08/09/2024 12:11:01 08/10/2024 10:41:56 [id number] LAUREN GRIFFIN MD [place] [facility] [address] [place] [address] 11/27/2024 14:39:55 11/27/2024 16:11:08 Chronic recurrent sinusitis 887435793 J32.9 -2008 - Septoplast y, Left ESS Dr SUMMERS-05/2016 [...] obtained today in office Laryngopha ryngeal reflux 991459321 K21.9 -2008 - s/p [facility] [employer] tion procedure [facility] -Dr. Wood Cesar-09/25 - EGD Dr Latanya [...] may return to singing. Tam's esophagus 3029 15212 K22.70 02/09/24- managed with Dr. Abraham Neck pain 62223184 M54.2 -09/08/22 -Thyroid ultrasound at [facility] n o thyroid nodules or masses identified -04/2023 - Onset of intermitte nt right lower neck pain- - Neck ultrasound years to [facility] u nremarkabl e appearance in the designated painful area; several [...] LPR02/09/24 - no complaints of Thyroid nodule 164742728 E04.1 -09/02/22 - Lower right lobe sl tender- 09/08/22 Thyroid US [facility]= no thyroid nodule or mass identified . Small right neck lymph nodes, nonspecifi c and likely reactive noted. Obstructiv e sleep apnea syndrome 74204370 G47.33 -using CPAP nightly Vasomotor rhinitis 43926 03 J30.0 Sensorineu ral hearing loss of bilateral ears 298472909 H90.3 Absence of bilateral tonsils 487850879 Z90.09 [id number] NEIL LANG PA-C [facility]EDI [facility] [address] [place] [address] 12/11/2024 15:15:15 12/11/2024 16:15:18 Pain in left sacroiliac joint 0110773782 3983919 M53.3 Assessment : SI joint dysfunctio n Plan: Start with formal PT, topical gels/cream s such as CBD creams, can't take NSAIDs due to GI/ulcer history, she is interested in getting SI joint injections , referral faxed to our apprentice painter hand Dr. Alcala who can provide these. Additional ly, eloe d Dr. Baez with [facility] Acupunctur e for her fibromyalg ia.Gave home exercises to work on in the meantime as well.We did look at her hips and physical exam remains benign, although moderate hip DJD. Follow up as needed. [id number] MD SULEIMAN HARTELY ENT [address] [place] [address] 12/28/2024 13:38:24 12/28/2024 14:08:30 Chronic recurrent sinusitis 113216268 J32.9 -2007 - Septoplast y, Left ESS [...] obtained today in office Laryngopha ryngeal reflux 571202284 K21.9 -2008 - s/p [employer] tion [...] may return to singing. Tam's esophagus 3029 10694 K22.70 02/09/24- managed with Dr. Abraham Neck pain 83862380 M54.2 -09/08/22 -Thyroid ultrasound at [facility] n o thyroid nodules or masses identified -04/2023 - Onset of intermitte nt right lower neck pain- - Neck ultrasound years to [facility] nremarkabl e appearance in the designated painful area; several [...] be the result of arytenoidi tis from [facility]02/09/24 - no complaints of Thyroid nodule 154943106 E04.1 -09/02/22 - Lower right lobe sl tender- 09/08/22 Thyroid US [facility]= no thyroid nodule or mass identified . Small right neck lymph nodes, nonspecifi c and likely reactive noted. Obstructiv e sleep apnea syndrome 86266705 G47.33 -using CPAP nightly Vasomotor rhinitis 86980 03 J30.0 Sensorineu ral hearing loss of bilateral ears 765232042 H90.3 Absence of bilateral tonsils 272754279 Z90.09 [id number] VENKATA MORRIS APRN CARDIOLOG Y [address] ,[address] [place] [address] 01/25/2025 12:36:16 01/25/2025 13:52:07 Coronary arteriosclerosis 18616645 I25.10 CCTA done at [facility] gat ston score = 161Left [...] mo for ongoing management Supraventr icular tachycardia 4943171 I47.10 Stable. No evidence of recurrence most recent heart monitor. continue with BB. Obstructiv e sleep apnea syndrome 62556457 G47.33 Not currently treating Hypertensive disorder 38 125963 I10 Stable.Low sodium diet. Type 2 dereje betes mellitus 60900013 E11.9 PCP monitoring . Hyperlipidemia 72313382 E78.5 Notes she cannot take statin, notes it caused peripheral neuropathy Discussed importance of tight control of lipids d/t Hx of CADLDL goal < 55, consider PSCK9-I if not attained given her history of non-obs CADPrimary care monitoring [id number] LOUISE ROSS PA-C DERMATOLO [facility] [address] [place] [address] 01/30/2025 14:03:50 01/30/2025 16:47:15 History of squamous cell carcinoma of skin 954284436 Z85.828 L posterior leg s/p MohsL calf s/p EDC 2021 No EOR, will continue to monitor History of malignant basal cell neoplasm of skin 395449187 Z85.828 L clavicle s/p EDC - No EOR, continue to monitor History of squamous cell carcinoma in situ 3807350421 9105 Z86.008 L shoulder s/p EDC - No EOR, continue to monitor History of actinic keratosis 5891989389 104 Z87.2 Previously treated with cryotherap y and 5FU topical cream Solar lentiginosis 26583 2006 L81.4 Benign reassuranc e Raised panchito orrheic keratosis 5595341149 45884 L82.1 Benign reassuranc e Hemangioma 493646888 D18 .00 Benign reassuranc e Multiple b enign melanocytic nevi 320536411 D22.9 Benign reassuranc e Pilar cyst of scalp 4011 79772 L72.11 Benign reassuranc eShe states they have grown but she does not want to have them excised at this time. 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 Family his tory of malignant melanoma 060071211 Z80.7 Sister Patient ad vised about exposure to the sun 086061666 Z71.89 Counseled on sun protective clothing/h ats and daily UV protection with otc broad-spec trum SPF 30+ on exposed areas. Regular self-skin exams recommende d. Pt encouraged to RTC with any new/changi ng lesions. Allergic c ontact dermatitis caused by urushiol from Eastern poison hesham 360009843 L23.7 2826970443 She has used clobetasol in the past w/ benefit Neoplasm o f uncertain behavior of skin 32562864 D48.5 90153 a. left proximal lateral upper arm r/o SCC - ED&C todayb. 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 077723745 C44.629 54591602 left proximal lateral upper armClinica l SCCTreated with ED&C x3 todaySee procedure noteWill recheck at 6 mo f/up sooner if patient notices any regrowth [id number] MD SULEIMAN HARTLEY ENT [address] [place] [address] 05/23/2025 12:44:35 05/23/2025 13:27:03 Chronic recurrent sinusitis 945304003 J32.9 -2007 - Septoplast y, Left ESS Dr SUMMERS-05/2016 - Revision left MMA, left ethmoidect cynthia, left NA window (limited medial maxillecto my), left SMR inferior turbinate- 3/1/18 -Left Nasal/Sinu s endoscopy/ debridemen t = [...] obtained today in office Laryngopha ryngeal reflux 879657628 K21.9 -2008 - s/p [employer] tion [...] may return to singing. Tam's esophagus 3029 17661 K22.70 02/09/24- managed with Dr. Abraham Vasomotor rhinitis 85399 03 J30.0 Sensorineu ral hearing loss of bilateral ears 247725580 H90.3 Bowing of vocal cord 232 263857 J38.3 984073 bilateral [id number] VENKATA JENSEN MORRIS APRN CARDIOLOG Y [address] [place] [address] ,[address] [place] [address] 06/20/2025 15:15:46 06/27/2025 11:26:51 Coronary arteriosclerosis 99061934 I25.10 CCTA done at [facility] gat ston score = 161Left [...] Lexiscan done 08/09/2024 demonstrat ed no ischemia. Continue plavix, she notes she cannot take ASADecline s statin d/t history of neuropathy , but is agreeable to PCSK9-i given recent neuro symptoms.F ollow up in 6 mo for ongoing management Supraventr icular tachycardia 9298112 I47.10 Stable. No evidence of recurrence most recent heart monitor. continue with BB. Obstructiv e sleep apnea syndrome 39466972 G47.33 Not currently treating Hypertensive disorder 38 406151 I10 Stable.Low sodium diet. Type 2 dereje betes mellitus 50245446 E11.9 PCP monitoring . Hyperlipidemia 44903932 E78.5 Notes she cannot take statin, notes it caused peripheral neuropathy Discussed importance of tight control of lipids d/t Hx of CADNow presents wtih TIA symptoms.L DL goal < 55, not calculable on recent lipid panel d/t markedly elevated TGL.Will try to get PSCK9i covered for her. Transient neurological symptoms 986364397 R29.818 47353750 She reports symptoms concerning for TIAShe has Hx of echo with normal bubble in the pastCaroti d duplex will be arranged to r/o Ivanna placed to evaluate PAFWill review results when available, further recommenda tions will be made at that time. [id number] LOUISE ROSS PA-C [facility]MAT[facility] [address] [place] [address] 08/07/2025 14:27:54 08/07/2025 15:24:47 History of squamous cell carcinoma of skin 059047436 Z85.828 L posterior leg s/p MohsL calf s/p EDC 2021L proximal lateral upper arm s/p EDC on 01/30/2025 No EOR, will continue to monitor History of malignant basal cell neoplasm of skin 610761827 Z85.828 L clavicle s/p EDC - No EOR, continue to monitor History of squamous cell carcinoma in situ 8073882014 9105 Z86.008 L shoulder s/p EDC - No EOR, continue to monitor History of actinic keratosis 0561418581 104 Z87.2 Hx of tx with LN and 5FU topical cream Counseled on sun protective clothing/h ats and daily UV protection with otc broad-spec trum SPF 30+ on exposed areas. Regular self-skin exams recommende d. Pt encouraged to RTC with any new/changi ng lesions. Solar lentiginosis 50273 2007 L81.4 Benign reassuranc e Raised panchito orrheic keratosis 3584707704 97924 L82.1 Benign reassuranc e Hemangioma 034126289 D18 .00 Benign reassuranc e Multiple b enign melanocytic nevi 977661600 D22.9 Benign reassuranc e Pilar cyst of scalp 4011 12732 L72.11 Benign reassuranc eShe states they have grown but she does not want to have them excised at this time. 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 Family his tory of malignant melanoma 187198183 Z80.7 Sister Dry skin dermatitis 2600 00818 L85.3 Continue ammonium lactate 12% cream QD Health Concerns Section Related Observation LastModified by Organization Detai ls LastModified Time None Recorded Concern Status LastModified by Organization Details LastModified Time None Recorded Advance Directives Directive None Recorded Payers Insurance Date Sequence Insurance Name Policy Number Policy Salcido Covered Member ID Salcido Member ID Guarantor Name 02/13/2020 1 [place] [id number] Umesh Bryant [id number] Candace Bryant 05/24/2019 2 [place] [id number] Umesh Bryant [id number] Candace Bryant 04/19/2023 INGENIOUSMED (MOVED TO HOLD) Candace Salgadok 08/04/2025 [employer] - DMEPOS ASSIGNED (MEDICARE DME REGION B) Candace Bryant [id number] Candace Salgadok 08/04/2025 1 [place] Candace Salgadok [id number] Candace Bryant 08/12/2025 2 AARP (MEDICARE SUPPLEMENT) Candace Bryant [id number] Candace Bryant Notes Date Note Type Note Provider Name and Address Organization Details Recorded Time 5 text/html ROS as noted in the HPI Ms. Bryant is a pleasant 74-year-old white [...] normal LV function. Had repeat carotid at [facility] which showed < 50% bilat ICA stenosis. Brain MRI 12/2022 was normal. 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 CCTA done at [facility] gatston score = 161Left Main: [...] she had complaint of CP.She underwent Lexiscan 08/09/20243826Bflqayhjbr9. Normal myocardial perfusion at rest and stress.2. [...] Did not require surgical intervention. VENKATA MORRIS, VENDOR RELATIONSHIP MANAGER [address] [place], [address], [facility] 01/25/2025 15:30:22 5 text/html ROS as noted in the HPI Established patient Patient presents to clinic today [...] of melanoma (sister). LOUISE ROSS PA-C [address] [place], [address], [facility] 02/03/2025 19:46:23 5 text/html ROS as noted in the HPI Melody visits us in office today to follow up on chronic sinusitis. Pt mentions having frequent green drainage from the nose/sinuses. She complains of coughing up thick yellow drainage each morning. Pt elevates her bed 4 inches to aid her GERD symptoms. She has a Hx of Tam's esophagus. Saline nasal rinse is used occasionally. LAUREN GRIFFIN MD [address] [place], [address], [facility] 05/23/2025 13:23:18 5 text/html ROS as noted in the HPI Ms. Bryant is a pleasant 75-year-old white female initially referred by Dr. Jean [...] normal LV function. Had repeat carotid at [facility] which showed < 50% bilat ICA stenosis. Brain MRI 12/2022 was normal. 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 CCTA done at [facility] gatston score = 161Left Main: [...] she had complaint of CP.She underwent Lexiscan 08/09/20244874Eicqxggabd2. Normal myocardial perfusion at rest and stress.2. LVEF= 69%, with normal regional wall motion.3. No significant EKG changes noted during this study. She had declined ASA therapy, but was agreeable to plavix at last office visit. Here today for follow up and EKGShe was going through workup for dementia last time I saw her in December, this was ordered per her primary care.Notes she has felt fatigued, run down.Notes she also feels she has lost a portion of her peripheral vision, but has not been evaluated by opthamology.She had TIA symptoms recently while trying to sing at [employer], notes something came over her and she could not get the words out. PCP felt she may be having TIA symptoms.She has been intolerant to statin therapy and is currently not treating HLP. She is interested in PSCK9i, we have discussed this in the past, but is agreeable now.She denies CP, orthopnea, PND, syncope, LE edema. VENKATA MORRIS, VENDOR RELATIONSHIP MANAGER [address] [place], [address], [facility] 06/21/2025 18:41:05 5 text/html ROS as noted in the HPI Established patient Patient presents to clinic today for 6 month FSE due to history of SCC, BCC, SCCIS, and AKs. Also, 6 month f/up on her L proximal lateral upper arm that was treated with EDC on 01/30/2025. She states the site healed well. She states she is using ammonium lactate 12% topical cream and would like a refill. Denies any other new, changing, or bleeding lesions, or other rashes, feels well, presents in a good mood. LOUISE ROSS PA-C [address] [place], [address], [facility] 08/07/2025 18:42:17 OBGyn Episode No OBEpisode recorded.
--- OUTSIDE RECORDS SUMMARY | 2025-08-16 15:55 | XMS_ITS | Referral Summary ---
Author Organization [employer] ([place], [place], [place], [place], [place]) Address [address] [place] [address] Care Team Providers Care Food Service Clerk Name Role Phone Graham Jose MD Primary [...] daily. Active BD Ultra-Fine Tanya Insulin Pen [place] 4 mm x 32 G Inject under [...] Date Clifford rded Speak language other than [place]ian at home Not on file 11/08/2023 Want [...] Description 10/07/2025 1:00 PM EST Office Visit [facility] [place] [address] [employer] [place] [address] [place] [phone] Ke Campbell MD [address] [place] [address] [address] [place], [place] [id number] Procedures Procedure Name Priority Date/Time Associated Diagnosis [...] by Krystyna Longoria PA-C. Graham Jose MD [facility] DXA ORDERABLES Final Res ult from Last 3 Months or Most Recently Relevant to Health Maintenance Insurance [id number] (Home) [address] [place] [id number] MEDICARE PART A B [facility] Care Teams Food Service Clerk Relationship Specialty Start Date End Date Graham Jose MD [address] [place] [address] [place] [address] PCP - General Adolescent Medicine 04/15/25
--- OUTSIDE RECORDS SUMMARY | 2025-08-16 15:55 | XMS_ITS | Continuity of Care Document ---
Author Organization [facility] DERMATOLOGY [facility] Address [address] [place] [address] Care Team Providers Care Box Lining Machine Feeder Name Role Phone JERSEY NAVAS E Commerce Merchandising Coordinator TAYLER SWEENEY OTHER VIKTORIA CORDOVA OTHER YURY CESAR OTHER GRAHAM JEAN Primary Care Provider SERA NO Breast Surgeon GRAHAM CORONA Urologist VALARIE MEYERS Gas Stove Servicer Helper YURY ANDERSON Telecommunications Manager VENKATA MORRIS Manager Subway LU WRIGHT General Surgeon LAUREN GRIFFIN Clinical Specialist Vascular Assessment Encounter Date Assessment Date Assessment LastModified by Organization Details LastModified Time 08/07/2025 08/07/2025 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 *Daughter passed in October 2019 from metastatic SCC pelvis* Daughter lives in [facility], Son in law is a submersible pilot, has 3 grandchildren She has had two recent TIAs [email or web address] Not available 08/07/2025 18:41:10 Plan of Treatment Reminders Order Date Submit Date Provider Last Modified By Organization Details Last Modified Time Details Appointments RECHECK 2025 01:30P Latnaya GRIFFIN MD Not available Not available Not available RECHECK 2025 11:45A M VENKATA ALEXANDRA COMPRESSOR STATION OPERATOR Not available Not available Not available DERM ESTABLISH ED 2025 02:40P M LOUISE ROSS PA-C Not available Not available Not available Lab None recorded. Referral None recorded. Procedures None recorded. Surgeries None recorded. Imaging None recorded. Medication Orders ammonium lactate 12 % topical cream 2024 025 [facility], [address], [address], 08/07/2025 15:10:41 Patient TargetsNo targets recorded. Patient Instructions Encounter Date Encounter Id Patient Instructions Last Modified By Organization Details Last Modified Time 08/07/2025 [id number] Education/alt/ri s ks/benefits/SE of Dx & Tx discussed. Daily UV protection with broad-spectrum SPF 30+ on exposed areas recommended. Pt encouraged to RTC with any new/changing lesions. [email or web address] Not available 08/06/2025 17:42:05 Reason for Referral None Reported. Results Created Date Observation Date Name Description Value Unit Range Abnormal Flag Note LastModifiedBy Organization Detail LastModifiedTime 07/19/2007/15/2025 event monit or No observ ation record ed. CLIVE Not Available 2024 23:51:59 Result Notes None recorded. Problems Name Problem SNOMED Code Status Onset Date Resolution Date Notes Provider Name and Address Organization Details Recorded Time Lateral epicondyl itis 089676631 Active 2014 From Automated Load;Prov ider: Yo Dykes tatus: Active Not Available [facility] 6 05:16:01 Acquired trigger finger 9182852 Active 2014 From Automated Load;Prov ider: Graham Dykes;S tatus: Active Not Available [facility] 6 05:16:00 Dyspnea 567306981 Active 2014 From Automated Load;Prov ider: Valarie Meyers;Sta tus: Active Not Available [facility] 6 05:16:00 Obstructi ve sleep apnea syndrome 05052165 Active 2014 From Automated Load;Prov ider: Valarie Meyers;Sta tus: Active Not Available [facility] 6 05:16:01 Idiopathi c osteoarth ritis 292600213 Active 2014 From Automated Load;Prov ider: Low Peter;St atus: Active Not Available [facility] 6 05:16:00 Pain in right knee Active 2014 From Automated Load;Prov ider: Low Peter;St atus: Active Not Available [facility] 6 05:16:00 Insomnia 426263761 Active 2015 From Automated Load;Prov ider: Valarie Meyers;Sta tus: Active Not Available [facility] 6 05:16:00 Melanocyt ic nevus of trunk 953097722 Active 2015 From Automated Load;Prov ider: Devon Isaacs;S tatus: Active Not Available [facility] 6 05:16:00 Eczema 13624786 Active 2015 From Automated Load;Prov ider: Devon Isaacs;S tatus: Active Not Available [facility] 6 05:16:01 Senile hyperkera tosis 091247362 Active 2015 From Automated Load;Prov ider: Devon Isaacs;S tatus: Active Not Available [facility] 6 05:16:01 Lentigo Active 2015 From Automated Load;Prov ider: Devon Isaacs;S tatus: Active Not Available [facility] 6 05:16:01 Acute sinusitis 14562186 Active 2015 From Automated Load;Prov ider: Aaron Chauhan;Sta tus: Active Not Available [facility] 6 05:16:00 Sinusitis 37205751 Active 2015 From Automated Load;Prov ider: Aaron Chauhan;Sta tus: Active Not Available [facility] 6 05:16:00 Vasomotor rhinitis 2462401 Active 2015 From Automated Load;Prov ider: Aaron Chauhan;Sta tus: Active Not Available [facility] 6 05:16:00 Hypertrop hy of nasal turbinate s 77805419 Active 2015 From Automated Load;Prov ider: Aaron Chauhan;Sta tus: Active Not Available [facility] 6 05:16:00 Nasal polyp Active 2015 From Automated Load;Prov ider: Aaron Chauhan;Sta tus: Active Not Available [facility] 7 06:09:08 Low back pain 879474250 Active 2016 BALA RAHMAN, PT [address] [place], [address] , [facility] 7 12:34:12 Abnormal posture 39654449 Active 2016 BALA RAHMAN, PT [address] [place], [address] , [facility] 7 12:34:14 Muscle weakness 33129004 Active 2016 BALA RAHMAN, PT [address] [place], [address] , [facility] 7 12:34:15 Lumbar spine stiff 223254378 Active 2016 BALA RAHMAN, PT [address] [place], [address] , [facility] 7 12:34:16 Contusion of rib 116773924 Active 2017 BALA RAHMAN, PT [address] [place], [address] , [facility] 8 18:42:00 Stiff back 571937292 Active 2017 BALA RAHMAN, PT [address] [place], [address] , [facility] 8 18:42:01 Rib pain 653032693 Active 2017 BALA RAHMAN, PT [address] [place], [address] , [facility] 8 18:42:03 Infection of sebaceous cyst 158832508 Active 2017 [facility] 14:27:30 Osteoarth ritis of joint of hand 49964330 Active 2019 BALA RAHMAN, PT [address] [place], [address] , [facility] 0 19:51:53 Pain of right hand 49590397435 9109 Active 2019 BALA RAHMAN, PT [address] [place], [address] , [facility] 0 19:51:55 Stiffness of joint of right hand 50985218036 9106 Active 2019 BALA RAHMAN, PT [address] [place], [address] , [facility] 0 19:51:57 Contractu re of joint of finger of left hand due to scar 50142912381 648926 Active 2019 BALA RAHMAN, PT [address] [place], [address] , [facility] 0 17:06:15 Thumb joint stiff 511587812 Active 2019 BALA RAHMAN, PT [address] [place], [address] , [facility] 0 17:06:30 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 14186949 Active 2019 BALA RAHMAN, PT [address] [place], [address] , [facility] 0 17:07:01 Pain of right shoulder joint 32679912139 532770 Active 2019 BALA RAHMAN, PT [address] [place], [address] , [facility] 0 18:53:50 Essential hypertens ion 18296159 Active 2021 KAMILAH LOPEZ, COMPRESSOR STATION OPERATOR [address] [place], [address] , [facility] 2 16:55:28 Type 2 diabetes mellitus 67940738 Active 2021 KAMILAH DARA LOPEZ, COMPRESSOR STATION OPERATOR [address] [place], [address] , [facility] 2 16:55:41 Palpitati ons 68694038 Active 2021 KAMILAH DARA LOPEZ, COMPRESSOR STATION OPERATOR [address] [place], [address] , [facility] 2 16:55:59 Supravent ricular tachycard ia 7817035 Active 2021 KAMILAHElayne LOPEZ, COMPRESSOR STATION OPERATOR [address] [place], [address] , [facility] 2 16:56:26 Tendiniti s of right forearm 04509480431 057871 Active 2022 BALA RAHMAN, PT [address] [facility] [place] [place], [address] , [facility] 3 15:01:54 Atrophy of muscle of right shoulder 58882360204 9104 Active 2022 BALA RAHMAN, PT [address] [place], [address] , [facility] 3 15:01:58 Lateral epicondyl itis 153688052 Active 2022 BALA RAHMAN, PT [address] [place], [address] , [facility] 3 19:19:45 Spasm 07595096 Active 2022 BALA RAHMAN, PT [address] [place], [address] , [facility] 3 19:19:50 Problem Notes None recorded. Procedures Surgical History Date Name Laterality Status Provider Name and Address Organization Details Recorded Time 025 EKG completed VENKATA MORRIS, COMPRESSOR STATION OPERATOR [address] [place], [address], [facility] 06/20/2025 15:58:24 09/25/2 025 Endoscopy Nasal; Diagnostic completed LAUREN GRIFFIN MD [address] [place], [address], [facility] 05/23/2025 13:19:52 025 Destruction MN Lesion; trunk, arm, leg completed Steph Washington [facility] 01/30/2025 15:00:42 025 Biopsy Skin Lesion; Tangential completed LOUISE ROSS PA-C [address] [place], [address], [facility] 02/03/2025 19:43:10 025 Endoscopy Nasal; Diagnostic completed LAUREN GRIFFIN MD [address] [place], [address], [facility] 12/28/2024 14:10:00 025 Endoscopy Nasal; Biospy, Polypectomy or Debridement completed Laila Bhatia [facility] 11/27/2024 15:18:30 024 Stress Test - Nuclear completed YURY MORELAND MD [address] [place], [address], [facility] 08/09/2024 16:32:59 024 Biopsy Skin Lesion; Tangential completed Fernanda Matute [facility] 08/01/2024 15:29:33 024 EKG completed VENKATA MORRIS, COMPRESSOR STATION OPERATOR [address] [place], [address], [facility] 07/06/2024 11:30:16 024 Synvisc One Injection completed Soni Maldonado [facility] 06/05/2024 11:20:07 024 Destruction Premalignant Lesion(s) completed Andreina Muse [facility] 01/30/2024 15:37:40 024 Synvisc One Injection completed Soni Maldonado [facility] 09/20/2023 15:05:25 024 Laryngoscopy Flex completed Vincent De La Rosa [facility] 09/08/2023 14:40:07 023 Destruction Premalignant Lesion(s) completed Andreina Muse [facility] 07/11/2023 14:11:59 023 Diffusion Capacity completed VALARIE MEYERS PA-C [address] [place], [address], [facility] 04/26/2023 16:53:09 023 Lung Volumes, Plethysmography completed VALARIE MEYERS PA-C [address] [place], [address], [facility] 04/26/2023 16:53:12 023 Spirometry completed VALARIE MEYERS PA-C [address] [place], [address], [facility] 04/26/2023 16:53:16 023 Tympanogram completed TAMIR PHAM, AUD [address] [place], [address], [facility] 02/11/2023 09:56:33 023 Audiogram completed TAMIR PHAM, AUD [address] [place], [address], [facility] 02/11/2023 09:56:25 023 Terra-Hallpike completed YURY OROZCO, COMPRESSOR STATION OPERATOR [address] [place], [address], [facility] 02/11/2023 11:04:26 023 Cerumen removal - Instruments, Unilateral completed YURY OROZCO, COMPRESSOR STATION OPERATOR [address] [place], [address], [facility] 02/11/2023 11:04:16 023 Destruction Premalignant Lesion(s) completed Andreina Muse [facility] 01/06/2023 10:05:27 023 EKG completed VENKATA MORRIS COMPRESSOR STATION OPERATOR [address] [place], [address], [facility] 12/22/2022 12:14:26 023 PT Manual Therapy completed BALA RAHMAN, PT [address] [place], [address], [facility] 11/16/2022 13:59:41 023 PT Therapeutic Exercise completed BALA RAHMAN, PT [address] [place], [address], [facility] 11/16/2022 13:57:57 023 PT Ultrasound completed BALA RAHMAN, PT [address] [place], [address], [facility] 11/16/2022 13:59:49 023 PT Manual Therapy completed BALA RAHMAN, PT [address] [place], [address], [facility] 11/08/2022 19:18:33 023 PT Therapeutic Exercise completed BALA RAHMAN, PT [address] [place], [address], [facility] 11/08/2022 19:15:09 023 PT Ultrasound completed BALA RAHMAN, PT [address] [place], [address], [facility] 11/08/2022 19:18:24 023 PT Evaluation - Low Complexity completed BALA RAHMAN, PT [address] [place], [address], [facility] 10/20/2022 14:53:00 023 PT Therapeutic Exercise completed BALA RAHMAN, PT [address] [place], [address], [facility] 10/20/2022 14:53:28 023 Endoscopy Nasal; Diagnostic completed Sherie Hudson [facility] 09/02/2022 11:51:54 022 Destruction BN Lesions completed Aleshia Saleh [facility] 07/05/2022 11:04:13 022 Destruction [place] Lesion; trunk, arm, leg completed Aleshia [facility] 03/31/2022 16:29:14 022 Shave Lesion; trunk, arm, leg completed Aleshia [facility] 03/09/2022 12:27:47 022 Destruction Premalignant Lesion(s) completed Aleshia [facility] 03/09/2022 12:22:34 022 Synvisc One Injection completed Paulette Hammer [facility] 01/06/2022 10:38:32 022 VAS - Carotid Duplex completed TONIE CARRINGTON MD [address] [place], [address], [facility] 12/03/2021 15:57:59 022 Bubbles Echocardiogram completed BEN HERNANDEZ MD [address] [place], [address], [facility] 12/03/2021 14:57:01 022 EKG completed Vicki Ledesma [facility] 11/19/2021 09:53:59 022 Destruction Premalignant Lesion(s) completed Fernanda Matute [facility] 09/23/2021 10:18:48 Nasal Endoscopy completed Ellen Headley [facility] 08/10/2021 17:01:02 021 Synvisc One Injection completed CHANDA ROMERO PA-C [address] [place], [address], [facility] 03/26/2021 11:25:31 021 Injection - Tendon Sheath/Ligament completed GRAHAM DYKES MD [address] [place], [address], [facility] 03/25/2021 10:50:29 021 Destruction MN Lesion; trunk, arm, leg completed LOUISE ROSS PA-C [address] [place], [address], [facility] 12/05/2020 15:59:45 021 Biopsy Skin Lesion; Tangential completed Emy Heinles [facility] 12/03/2020 10:53:00 021 Destruction [facility] 11:03:08 021 Orthotic, FO, Dynamic Prefab completed EVELYN CANALES, OTR/L, CHT [address] [place], [address], [facility] 10/24/2020 08:49:59 021 PT Manual Therapy completed EVELYN CANALES OTR/L, CHT [address] [place], [address], [facility] 10/24/2020 08:49:54 021 PT Paraffin Bath completed EVELYN CANALES OTR/L, CHT [address] [place], [address], [facility] 10/23/2020 08:31:53 021 PT Manual Therapy completed EVELYN CANALES OTR/L, CHT [address] [place], [address], [facility] 09/19/2020 11:16:16 021 PT Paraffin Bath completed EVELYN CANALES OTR/L, CHT [address] [place], [address], [facility] 09/19/2020 11:15:50 021 PT Hot/Cold Pack completed EVELYN CANALES OTR/L, CHT [address] [place], [address], [facility] 09/10/2020 11:37:39 021 PT Manual Therapy completed EVELYN CANALES OTR/L, CHT [address] [place], [address], [facility] 09/10/2020 11:37:37 021 OT Evaluation - Moderate complexity completed EVELYN CANALES OTR/L, CHT [address] [place], [address], [facility] 09/05/2020 11:32:57 021 Orthotic, FO, Static Custom completed EVELYN CANALES, OTR/L, CHT [address] [place], [address], [facility] 09/05/2020 11:33:02 021 Destruction MN Lesion; trunk, arm, leg completed [facility] 09/03/2020 12:05:31 021 Biopsy Skin Lesion; Tangential completed [facility] 09/03/2020 12:02:31 021 Destruction Premalignant Lesion(s) completed [facility] 09/03/2020 12:00:32 PT Therapeutic Exercise completed BALA RAHMAN, PT [address] [place], [address], [facility] 07/04/2020 16:03:22 PT Therapeutic Exercise completed BALA RAHMAN, PT [address] [place], [address], [facility] 06/23/2020 18:48:36 PT Therapeutic Exercise completed BALA RAHMAN, PT [address] [place], [address], [facility] 06/13/2020 15:51:44 PT Manual Therapy completed BALA RAHMAN, PT [address] [place], [address], [facility] 06/04/2020 13:09:44 020 PT Therapeutic Exercise completed BALA RAHMAN, PT [address] [place], [address], [facility] 06/04/2020 13:09:33 020 PT Ultrasound completed BALA RAHMAN, PT [address] [place], [address], [facility] 06/04/2020 13:09:55 09/22/2 020 PT Manual Therapy completed BALA RAHMAN, PT [address] [place], [address], [facility] 05/20/2020 18:03:48 020 PT Therapeutic Exercise completed BALA RAHMAN, PT [address] [place], [address], [facility] 05/20/2020 18:04:39 020 PT Ultrasound completed BALA RAHMAN, PT [address] [place], [address], [facility] 05/20/2020 18:04:03 020 PT Evaluation - Low Complexity completed BALA RAHMAN, PT [address] [place], [address], [facility] 05/09/2020 16:57:46 020 PT Therapeutic Exercise completed BALA RAHMAN, PT [address] [place], [address], [facility] 05/09/2020 16:58:14 020 PT Ultrasound completed BALA RAHMAN, PT [address] [place], [address], [facility] 05/09/2020 16:59:06 020 Orthotic, HFO, Static Custom completed EVELYN CANALES, OTR/L, CHT [address] [place], [address], [facility] 02/27/2020 13:25:40 020 Destruction Premalignant Lesion(s) completed Steph Greenwood [facility] 02/13/2020 09:19:10 020 PT Evaluation - Low Complexity completed BALA RAHMAN, PT [address] [place], [address], [facility] 10/01/2019 19:42:57 020 PT Therapeutic Exercise completed BALA RAHMAN, PT [address] [place], [address], [facility] 10/01/2019 19:43:05 02/03/2 020 Injection - Joint/Bursa, Interm completed GRAHAM DYKES MD [address] [place], [address], [facility] 10/01/2019 08:31:29 020 Endoscopy Nasal; Diagnostic completed Savi Renodnck [facility] 09/06/2019 08:56:05 019 Orthotic, HFO, Static Custom completed EVELYN CANALES, OTR/L, CHT [address] [place], [address], [facility] 06/04/2019 14:36:14 019 Endoscopy Nasal; Biospy, Polypectomy or Debridement completed [facility] 05/30/2019 13:32:18 019 thumb surgery completed Emy Mohan [facility] 05/30/2019 13:01:13 019 Tympanogram completed TAYLER LÓPEZ, AUD [address] [place], [address], [facility] 01/01/2019 10:46:21 019 Audiogram completed TAYLER LÓPEZ AUD [address] [place], [address], [facility] 01/01/2019 10:46:19 019 Laryngoscopy Flex completed [facility] 01/01/2019 11:59:23 019 Destruction Premalignant Lesion(s) completed [facility] 11/14/2018 10:57:46 019 Destruction BN Lesions completed [facility] 11/14/2018 10:58:02 019 Endoscopy Nasal; Biospy, Polypectomy or Debridement completed Kalin Joseph [facility] 09/28/2018 10:53:01 018 General Surgery completed Lilli Graves [facility] 05/10/2018 14:28:11 018 Injection - Tendon Sheath/Ligament completed SONI MAYES PA-C [address] [place], [address], [facility] 04/07/2018 15:04:57 018 Endoscopy Nasal; Biospy, Polypectomy or Debridement completed [facility] 03/30/2018 15:24:47 018 I&D Abscess/Cyst Single/Simple completed [facility] 12/22/2017 10:33:38 018 Injection - Intralesional completed DEVON ISAACS, COMPRESSOR STATION OPERATOR [address] [place], [address], [facility] 12/22/2017 11:27:35 018 PT Therapeutic Exercise completed BALA RAHMAN, PT [address] [place], [address], [facility] 12/08/2017 18:00:45 018 PT Evaluation - Low Complexity completed BALA RAHMAN, PT [address] [place], [address], [facility] 11/14/2017 18:35:08 018 Destruction Premalignant Lesion(s) completed [facility] 11/10/2017 11:30:30 018 Destruction BN Lesions completed [facility] 11/10/2017 11:31:29 018 Injection - Tendon Sheath/Ligament completed SONI MAYES PA-C [address] [place], [address], [facility] 10/31/2017 16:26:09 018 Endoscopy Nasal; Biospy, Polypectomy or Debridement completed [facility] 10/27/2017 13:35:50 017 Endoscopy Nasal; Biospy, Polypectomy or Debridement completed Sherie Hudson [facility] 07/18/2017 11:52:37 017 Endoscopy Nasal; Biospy, Polypectomy or Debridement completed [facility] 05/25/2017 08:34:58 017 Breast Surgery completed Candace Gaona [facility] 05/25/2017 08:10:17 017 Biopsy Skin completed [facility] 03/15/2017 15:07:02 017 Destruction Premalignant Lesion(s) completed [facility] 03/15/2017 15:22:34 017 Destruction BN Lesions completed [facility] 03/15/2017 15:23:02 017 Endoscopy Nasal; Biospy, Polypectomy or Debridement completed [facility] 02/24/2017 11:31:32 017 Review of Med Recs/Compl forms completed [facility] 02/03/2017 12:14:00 017 Endoscopy Nasal; Diagnostic completed [facility] 02/03/2017 12:15:20 017 Endoscopy Nasal; Diagnostic completed [facility] 01/06/2017 09:51:33 017 Endoscopy Nasal; Biospy, Polypectomy or Debridement completed [facility] 12/01/2016 13:51:14 017 Nasopharyngoscopy completed [facility] 11/10/2016 11:32:31 017 Review of Med Recs/Compl forms completed [facility] 11/10/2016 11:27:30 017 Endoscopy Nasal; Biospy, Polypectomy or Debridement completed Maria Ines Stiles [facility] 11/04/2016 13:17:46 017 PT Therapeutic Exercise completed BALA RAHMAN, PT [address] [place], [address], [facility] 10/05/2016 14:10:15 017 PT Therapeutic Exercise completed BALA RAHMAN, PT [address] [place], [address], [facility] 09/29/2016 12:33:26 017 PT Evaluation - Low Complexity completed BALA RAHMAN, PT [address] [place], [address], [facility] 09/29/2016 12:33:09 017 Endoscopy Nasal; Biospy, Polypectomy or Debridement completed Sherie Hudson [facility] 09/23/2016 13:58:53 016 Ears/Nose/Throat Surgery completed [facility] 02/03/2017 10:22:51 Hair Baler Surgery completed [facility] 02/03/2017 10:18:36 Knee arthroscopy/surgery completed [facility] 02/03/2017 10:18:48 Shoulder joint surgery completed [facility] 02/03/2017 10:19:09 Shoulder joint surgery completed [facility] 02/03/2017 10:19:11 Unlisted px foot/toes completed [facility] 02/03/2017 10:19:34 Ears/Nose/Throat Surgery completed [facility] 02/03/2017 10:20:04 Breast Surgery completed [facility] 02/13/2018 10:35:00 Carpal tunnel surgery completed [facility] 02/03/2017 10:20:44 Unlisted px hands/fingers completed [facility] 02/03/2017 10:20:51 Knee arthroscopy/surgery completed [facility] 02/03/2017 10:22:07 Tonsillectomy completed Patricia [facility] 08/24/2016 13:58:23 Other completed [place] [facility] 08/24/2016 13:58:37 Other completed Patricia [place] [facility] 08/24/2016 13:58:56 Other completed Ptaricia Jer [place] [facility] 08/24/2016 14:01:05 Other completed Patricia [place] [facility] 08/24/2016 14:04:12 Appendectomy completed Mary Cevallos [facility] 12/08/2023 10:24:54 Imaging Results None recorded. Procedure Notes None recorded. Medical Equipment None Reported. Allergies Allergen ID Allergen Name Allergen Category Reaction Reaction Severity Criticality Documentation Date Start Date Code Code System Note Provider Name and Address Organization Details Recorded Time 278797 prednison e medicatio n Not available Not available Not available 07/22/20162009 8640 RxNorm Mary Cevallos [facility] 8 10:24:29 484646 clindamyc in hydrochlo ride medicatio n nausea Not available Not available 07/22/20162012 66000 RxNorm Candace severino [facility] 7 09:10:31 512992 vancomyci n hydrochlo ride medicatio n Not available Not available Not available 07/22/20162012 11657 RxNorm Candace severino [facility] 7 09:11:12 889893 acetamino phen / hydrocodo ne medicatio n nausea severe Not available 07/22/20162010 55836 2 RxNorm React ion: NAUSE A;Sev erity : Sever e; Comme nt: Creat ed By: Jennifer fernandez Date: 2010 4:54: 20 PM; Not Available [facility] 6 10:18:05 505634 Substance with prostagla ndin-endo peroxide synthase isoform 2 inhibitor mechanism of action (substanc e) Not available other Not available Not available 07/22/20162009 02070 0005 SNOMED Comme nt: CAUSE ULCER S Candace severino [facility] 7 09:10:42 741970 Substance with sulfonami de structure and antibacte rial mechanism of action (substanc e) medicatio n Not available Not available Not available 07/22/20162006 10458 8003 SNOMED Candace severino [facility] 7 09:11:08 785541 Reglan medicatio n Not available Not available Not available 07/22/20162009 9230 RxNorm Mary Cevallos [facility] 4 10:03:21 391596 Cymbalta medicatio n Not available Not available Not available 07/22/20162010 93742 4 RxNorm Candace Brown n [facility] 7 09:10:46 034233 gabapenti n medicatio n rash Not available Not available 07/22/20162012 77134 RxNorm Candace Teeso n [facility] 7 09:10:51 644253 Medrol medicatio n rash Not available Not available 07/22/20162014 2 RxNorm Mary Cevallos [facility] 8 10:24:22 524629 codeine medicatio n Not available Not available Not available 07/22/20162006 2670 RxNorm Candace Teeso n [facility] 7 09:10:34 201117 Biaxin medicatio n other Not available Not available 07/22/2016200672 9 RxNorm Comme nt: PT ON RELPA X SHOUL D NOT TAKE BIAXI N WITH THIS DRUG Candace Teeso n [facility] 7 09:10:23 603698 midazolam hydrochlo ride medicatio n Not available Not available Not available 07/22/2016201312 8 RxNorm Candace Teeso n [facility] 7 09:11:14 023844 acetamino phen / hydrocodo ne medicatio n nausea Not available Not available 07/23/2016201218 2 RxNorm Candace Teeso n [facility] 7 09:10:55 030028 Cipro medicatio n abdominal pain Not available Not available 02/13/201858894 3 RxNorm Mary Cevallos [facility] 8 10:25:49 703913 Topamax medicatio n Not available Not available Not available 12/14/202111973 3 RxNorm Margarita Cole [facility] 2 11:53:05 224007 Non-stero idal anti-infl ammatory agent (substanc e) medicatio n Not available Not available Not available 12/14/2021 43760 5008 SNOMED Margarita Cole [facility] 2 11:53:13 229997 amoxicill in medicatio n Not available Not available Not available 09/12/2024 723 RxNorm Notif ied of aller gy 09/12 Ginny Hernández [facility] 5 15:26:18 161457 lidocaine medicatio n rash Not available Not available 11/27/2024 6387 RxNorm decli gideon topic al lidoc carleen due to rash/ burni ng Jeny David [facility] 5 15:04:06 707165 gabapenti n medicatio n swelling Not available high 07/26/20252022 60402 RxNorm Not Available clive - External Data Service - prod 5 10:01:08 759940 vancomyci n medicatio n rash Not available low 07/26/20252022 34922 RxNorm Not Available clive - External Data Service - prod 5 10:01:08 700191 clindamyc in Not available Not available Not available Not available 07/26/20252022 2582 RxNorm Upset stoma ch Not Available clive - External Data Service - prod 5 10:01:38 264280 nebivolol medicatio n swelling Not available Not available 07/26/20252022 19123 RxNorm palpi tatio ns Not Available clive - External Data Service - prod 5 10:01:38 163987 pregabali n medicatio n swelling Not available low 07/26/20252022 18730 2 RxNorm Not Available clive - External Data Service - prod 5 10:01:38 790390 fentanyl medicatio n Not available Not available Not available 07/26/20252014 4337 RxNorm migra ine unrec ogniz ed react ion (text : Other (See Comme nts), code: 74991 003) [facility] Not Available clive - External Data Service - prod 5 10:02:01 121741 metoclopr amide hydrochlo ride medicatio n Not available Not available Not available 07/26/20252014 85455 6 RxNorm migra ine unrec ogniz ed react ion (text : Other (See Comme nts), code: 86766 003) ([facility]) Not Available clive - External Data Service - prod 5 10:02:01 930105 amoxicill in / clavulana te medicatio n Not available Not available Not available 07/26/20252024 71895 RxNorm Other React ion(s ): abdom inal pain Not Available clive - Reissued Data Service - prod 5 10:03:25 604029 celecoxib medicatio n Not available Not available Not available 07/26/20252014 51777 7 RxNorm Not Available clive - Reissued Data Service - prod 5 10:03:25 397145 ciproflox acin hydrochlo ride medicatio n Not available Not available Not available 07/26/20252023 42969 RxNorm Extre me abdom inal pian Not Available clive - External Data Service - prod 5 10:03:25 356660 ciproflox acin medicatio n Not available Not available low 07/26/20252024 2551 RxNorm Other React ion(s ): abdom inal pain, GI Intol eranc e Abdom inal pain Not Available clive - External Data Service - prod 5 10:03:25 950455 clarithro mycin medicatio n Not available Not available Not available 07/26/20252006 00828 RxNorm Was told not to take with migra ine medic ation Biaxi n Not Available [employer] Data Service - prod 5 10:03:25 411505 clindamyc in hydrochlo ride medicatio n Not available Not available Not available 07/26/20252012 27233 RxNorm Not Available clive - External Data Service - prod 5 10:03:25 397437 duloxetin e medicatio n Not available Not available high 07/26/20252010 72319 RxNorm Other React ion(s ): Not avail able LEG SWELL ING Not Available clive - Reissued Data Service - prod 5 10:03:25 329793 hydrocodo ne Not available Not available Not available low 07/26/20252018 5489 RxNorm Not Available [employer] - prod 5 10:03:25 116156 indometha cornelius sodium medicatio n Not available Not available Not available 07/26/20252014 32964 12 RxNorm Not Available [employer] - prod 5 10:03:25 016232 levofloxa cornelius medicatio n Not available Not available high 07/26/20252017 84601 RxNorm Ruptu red tendo ns and paty er finge r Not Available [employer] - prod 5 10:03:25 751354 metformin medicatio n Not available Not available Not available 07/26/20252018 6809 RxNorm Other React ion(s ): GI Intol eranc e Not Available [employer] - prod 5 10:03:25 720233 midazolam hydrochlo ride medicatio n Not available Not available Not available 07/26/20252013 82694 8 RxNorm Other React ion(s ): Not avail able Not Available [employer] - prod 5 10:03:25 233139 naproxen sodium medicatio n Not available Not available Not available 07/26/20252024 97319 2 RxNorm Other React ion(s ): Unkno wn Not Available [employer] - prod 5 10:03:25 371812 sulfameth oxazole / trimethop rim medicatio n Not available Not available high 07/26/20252012 25723 RxNorm GENER NARCISO D SWELL ING Not Available clive - External Data Service - prod 5 10:03:25 081596 lactase medicatio n Not available Not available Not available 07/26/20252016 92933 RxNorm Migra chang Not Available clive - External Data Service - prod 5 10:03:25 262495 topiramat e medicatio n Not available Not available [facility] 07/26/20252021 65649 RxNorm Lasts days Other React ion(s ): Not avail able Not Available clive - External Data Service - prod 5 10:03:25 366823 duloxetin e hydrochlo ride medicatio n Not available Not available Not available 07/26/20252016 98519 0 RxNorm Not Available clive [employer] External Data Service - [facility] 5 10:03:29 Medications Name Sig Start Date [...] Available Not Available No t Available levofloxa cornelisu 500 mg tablet 10/31 completed Not Available [...] completed Not Available Not Available Not Available [place] 3 active Not Available Not Avail able [...] Available Not Available Not Available Fluarix Quad 3880-8748 (PF) 60 mcg (15 mcg x 4)/0.5 [...] Not Available Not Available Not Available Vitals None Recorded 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 Question Answer Notes LastModified by Organizat ion Details LastModified Time Tobacco Smoking Status Never Smoker Patricia sanches [facility] 08/24/2016 13:57:44 What Is Your Level Of Caffeine Consumption? Occasional Information not available 10/31/2017 How Much Tobacco Do You Chew? None [email or web address] Information not available 11/05/2020 Which Of Your [...] Of Your Most Recent Tobacco Screening? 08/15/2025 [email or web address] Information not available 08/14/2025 How Many Children Do You Have? 4 Information not available 11/19/2021 What Is Your Relationship Status? [email or web address] Information not available 11/19/2021 How Much Tobacco Do You Smoke? No [email or web address] Information not available 11/05/2020 Has Tobacco Cessation Counseling Been Provided? No [email or web address] Information not available 12/22/2022 How Many Years Have You Smoked Tobacco? 0 [email or web address] Information not available 11/05/2020 Have You Recently Traveled Abroad? No [email or web address] Information not available 11/19/2021 Sex: Female Functional Status Question Answer Note LastModified by Organizat ion Details LastModified Time Do you use any illicit or recreational drugs? No Information not available 10/31/2017 Do you or have you ever used any other forms of tobacco or nicotine? No Information not available 06/30/2022 What is your level of alcohol consumption? Occasional one glass of wine daily [email or web address] Information not available 11/05/2020 Do you or [...] Pain N Stomach trouble N Heart Attack (SD) N Ulcers Y Diabetes Y Rheumatic Fever [...] Time zoster live 6 completed Not Available [facility] 08/07/2025 14:28:53 Influenza, adjuvanted, trivalent, PF 7 completed Not Available [facility] 08/07/2025 14:28:53 Influenza, high-dose, trivalent, PF 8 completed Not Available [facility] 08/07/2025 14:28:53 Influenza, high-dose, trivalent, PF 9 completed Not Available [facility] 08/07/2025 14:28:53 Influenza, high-dose, quadrivalent, PF 0 completed Not Available [facility] 08/07/2025 14:28:53 zoster recombinant 0 completed Not Available [facility] 08/07/2025 14:28:53 zoster recombinant 1 completed Not Available [facility] 08/07/2025 14:28:53 Influenza, adjuvanted, quadrivalent, PF 1 completed Not Available [facility] 08/07/2025 14:28:53 Influenza, high-dose, quadrivalent, PF 2 completed Not Available [facility] 08/07/2025 14:28:53 RSV, bivalent, protein subunit RSVpreF, diluent reconstituted, 0.5 mL, PF 3 completed Not Available [facility] 08/07/2025 14:28:53 Influenza, high-dose, quadrivalent, PF 3 completed Not Available [facility] 08/07/2025 14:28:53 COVID-19, mRNA, LNP-S, PF, 50 mcg/0.5 mL 4 completed Not Available [facility] 08/07/2025 14:28:53 RSV, recombinant, protein subunit RSVpreF, adjuvant reconstituted, 0.5 mL, PF 4 completed Not Available [facility] 08/07/2025 14:28:53 Influenza, high-dose, trivalent, PF 4 completed Not Available [facility] 08/07/2025 14:28:53 Pneumococcal conjugate PCV21, polysaccharide [id number] conjugate, PF 5 completed Not Available [facility] 08/07/2025 14:28:53 Influenza, high-dose, trivalent, PF 5 completed Not Available [facility] 08/07/2025 14:28:53 COVID-19, mRNA, LNP-S, PF, 30 mcg/0.3 mL dose 1 completed [facility] 12/11/2024 15:52:44 COVID-19, mRNA, LNP-S, PF, 30 mcg/0.3 mL dose 1 completed Marino sanches [facility] 12/11/2024 15:52:44 COVID-19, mRNA, LNP-S, PF, 30 mcg/0.3 mL dose 1 completed Marino [facility] 12/11/2024 15:52:44 Past Encounters Encounter ID Performer Location Encounter Start Date Encounter Closed Date Diagnosis/Indication Diagnosis SNOMED-CT Code Diagnosis ICD10 Code Diagnosis IMO Codes Diagnosis Note [id number] LOUISE ROSS PA-C [facility] [address] [place] [address] 08/07/2025 14:27:54 08/07/2025 15:24:47 History of squamous cell carcinoma of skin 480492499 Z85.828 L posterior leg s/p MohsL calf s/p EDC 2021L proximal lateral upper arm s/p EDC on 01/30/2025 No EOR, will continue to monitor History of malignant basal cell neoplasm of skin 296413046 Z85.828 L clavicle s/p EDC - No EOR, continue to monitor History of squamous cell carcinoma in situ 8269173437 9105 Z86.008 L shoulder s/p EDC - No EOR, continue to monitor History of actinic keratosis 8670537829 104 Z87.2 Hx of tx with LN and 5FU topical cream Counseled on sun protective clothing/h ats and daily UV protection with otc broad-spec trum SPF 30+ on exposed areas. Regular self-skin exams recommende d. Pt encouraged to RTC with any new/changi ng lesions. Solar lentiginosis 32897 2006 L81.4 Benign reassuranc e Raised panchito orrheic keratosis 5879062533 97271 L82.1 Benign reassuranc e Hemangioma 908049281 D18 .00 Benign reassuranc e Multiple b enign melanocytic nevi 996910199 D22.9 Benign reassuranc e Pilar cyst of scalp 4011 79588 L72.11 Benign reassuranc eShe states they have grown but she does not want to have them excised at this time. 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 Family his tory of malignant melanoma 425760586 Z80.7 Sister Dry skin dermatitis 7250 40062 L85.3 Continue ammonium lactate 12% cream QD Health Concerns Section Related Observation LastModified by Organization Detai ls LastModified Time None Recorded Concern Status LastModified by Organization Details LastModified Time None Recorded Payers Encounter Date Sequence Insurance Name Policy Number Policy Salcido Covered Member ID Salcido Member ID Guarantor Name 08/07/2025 1 [place] Candace Bryant [id number] Candace Bryant 08/07/2025 2 [employer] (MEDICARE SUPPLEMENT) Candace Bryant [id number] Candace Bryant Notes Date Note Type Note Provider Name and Address Organization Details Recorded Time 08/07/2025 text/html ROS as noted in the HPI [...] a good mood. LOUISE ROSS PA-C [address] [place], [address], [facility] 08/07/2025 18:42:17 OBGyn Episode No OBEpisode recorded.
--- OUTSIDE RECORDS SUMMARY | 2025-08-16 15:56 | XMS_ITS | Continuity of Care Document ---
Author Organization [facility], [facility] Address [address] [place] [address] [address] [place] [address] Care Team Providers Care Diamond Die Driller Name Role Phone JERSEY NAVAS Floorhand TAYLER SWEENEY OTHER VIKTORIA CORDOVA OTHER YURY CESAR OTHER GRAHAM JEAN Primary Care Provider SERA NO Breast Surgeon [phone] GRAHAM CORONA Urologist VALARIE MEYERS Sound System Installer YURY ABRAHAM System Support Developer [phone] VENKATA MORRIS Optical Glass Wet Inspector LU WRIGHT General Surgeon LAUREN GRIFFIN Hydro Station Operator Assessment No assessment recorded. Plan of Treatment Reminders Order Date Submit Date Provider Last Modified By Organization Details Last Modified Time Details Appointments RECHECK 2025 01:30P Latanya GRIFFIN MD Not available Not available Not available RECHECK 2025 11:45A M VENKATA MORRIS FAMILY PRESERVATION OFFICER Not available Not available Not available DERM ESTABLISH ED 2025 02:40P M LOUISE ROSS PA-C Not available Not available Not available Lab None recorded. Referral None recorded. Procedures None recorded. Surgeries None recorded. Imaging US, carotid artery 2024 025 [facility], [address] [place] [address] , [place], [address], 07/01/2025 13:58:41 holter monitor 2024 june [facility], [address], [place], [address], 06/21/2025 09:54:25 Medication Orders Repatha SureClick 140 mg/mL subcutane ous pen injector 2024 025 [facility], [address] [address], [place], [address], 06/20/2025 16:16:01 Patient TargetsNo targets recorded. Patient Instructions Encounter Date Encounter Id Patient Instructions Last Modified By Organization Details Last Modified Time 06/20/2025 [id number] supraventricular tachycardia: care instructions Not available 06/20/2025 16:08:40 high blood press ure: care instructions Not available 06/20/2025 16:08:40 high cholesterol : care instructions Not available 06/20/2025 16:08:40 coronary artery disease: care instructions Not available 06/20/2025 16:08:40 Reason for Referral None Reported. Results Created Date Observation Date Name Description Value Unit Range Abnormal Flag Note LastModifiedBy Organization Detail LastModifiedTime 06/21/2006/20/2025 elect rocar diogr am No observ ation record ed. BARCODE Not Available 2024 09:08:54 07/01/2007/01/2025 US, carot id arter y No observ ation record ed. CLIVE [facility] [address], [place], [address], 07/02/2025 13:05:58 07/19/2007/15/2025 event monit or No observ ation record ed. CLIVE Not Available 2024 23:51:59 Result Notes None recorded. Problems Name Problem SNOMED Code Status Onset Date Resolution Date Notes Provider Name and Address Organization Details Recorded Time Lateral epicondyl itis 326220416 Active 2014 From Automated Load;Prov ider: Graham Dykes;S tatus: Active Not Available [facility] 6 05:16:01 Acquired trigger finger 2616295 Active 2014 From Automated Load;Prov ider: Graham Dykes;S tatus: Active Not Available [facility] 6 05:16:00 Dyspnea 053202001 Active 2014 From Automated Load;Prov ider: Valarie Meyers;Sta tus: Active Not Available [facility] 6 05:16:00 Obstructi ve sleep apnea syndrome 92659155 Active 2014 From Automated Load;Prov ider: Valarie Meyers;Sta tus: Active Not Available [facility] 6 05:16:01 Idiopathi c osteoarth ritis 310662387 Active 2014 From Automated Load;Prov ider: Low Peter;St atus: Active Not Available [facility] 6 05:16:00 Pain in right knee Active 2014 From Automated Load;Prov ider: Low Peter;St atus: Active Not Available [facility] 6 05:16:00 Insomnia 677638415 Active 2015 From Automated Load;Prov ider: Valarie Meyers;Sta tus: Active Not Available [facility] 6 05:16:00 Melanocyt ic nevus of trunk 790525205 Active 2015 From Automated Load;Prov ider: Devon Isaacs;S tatus: Active Not Available [facility] 6 05:16:00 Eczema 84767068 Active 2015 From Automated Load;Prov ider: Devon Isaacs;S tatus: Active Not Available [facility] 6 05:16:01 Senile hyperkera tosis 036586147 Active 2015 From Automated Load;Prov ider: Devon Isaacs;S tatus: Active Not Available [facility] 6 05:16:01 Lentigo Active 2015 From Automated Load;Prov ider: Devon Isaacs;S tatus: Active Not Available [facility] 6 05:16:01 Acute sinusitis 37233287 Active 2015 From Automated Load;Prov ider: Aaron Chauhan;Sta tus: Active Not Available [facility] 6 05:16:00 Sinusitis 44650636 Active 2015 From Automated Load;Prov ider: Aaron Chauhan;Sta tus: Active Not Available [facility] 6 05:16:00 Vasomotor rhinitis 2505030 Active 2015 From Automated Load;Prov ider: Aaron Chauhan;Sta tus: Active Not Available [facility] 6 05:16:00 Hypertrop hy of nasal turbinate s 98452219 Active 2015 From Automated Load;Prov ider: Aaron Chauhan;Sta tus: Active Not Available [facility] 6 05:16:00 Nasal polyp Active 2015 From Automated Load;Prov ider: Aaron Chauhan;Sta tus: Active Not Available [facility] 7 06:09:08 Low back pain 575989497 Active 2016 BALA RAHMAN, PT [address] [place], [address] , [facility] 7 12:34:12 Abnormal posture 50182996 Active 2016 BALA RAHMAN, PT [address] [place], [address] , [facility] 7 12:34:14 Muscle weakness 16010262 Active 2016 BALA RAHMAN, PT [address] [place], [address] , [facility] 7 12:34:15 Lumbar spine stiff 589045800 Active 2016 BALA RAHMAN, PT [address] [place], [address] , [facility] 7 12:34:16 Contusion of rib 474470210 Active 2017 BALA RAHMAN, PT [address] [place], [address] , [facility] 8 18:42:00 Stiff back 493495165 Active 2017 BALA RAHMAN, PT [address] [place], [address] , [facility] 8 18:42:01 Rib pain 909607046 Active 2017 BALA RAHMAN, PT [address] [place], [address] , [facility] 8 18:42:03 Infection of sebaceous cyst 109143921 Active 2017 left thigh Lilli Graves [facility], [facility] 8 14:27:30 Osteoarth ritis of joint of hand 20910663 Active 2019 BALA RAHMAN, PT [address] [place], [address] , [facility] 0 19:51:53 Pain of right hand 84436471079 9109 Active 2019 BALA RAHMAN, PT [address] [place], [address] , [facility] 0 19:51:55 Stiffness of joint of right hand 96555327988 9106 Active 2019 BALA RAHMAN, PT [address] [place], [address] , [facility] 0 19:51:57 Contractu re of joint of finger of left hand due to scar 75962077457 429686 Active 2019 BALA RAHMAN, PT [address] [place], [address] , [facility] 0 17:06:15 Thumb joint stiff 042951055 Active 2019 BALA RAHMAN, PT [address] [place], [address] , [facility] 0 17:06:30 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 12057639 Active 2019 BALA RAHMAN, PT [address] [place], [address] , [facility] 0 17:07:01 Pain of right shoulder joint 15762701633 089582 Active 2019 BALA RAHMAN, PT [address] [place], [address] , [facility] 0 18:53:50 Essential hypertens ion 06962864 Active 2021 KAMILAH LOPEZ, FAMILY PRESERVATION OFFICER [address] [place], [address] , [facility] 2 16:55:28 Type 2 diabetes mellitus 58471976 Active 2021 KAMILAH LOPEZ, FAMILY PRESERVATION OFFICER [address] [place], [address] , [facility] 2 16:55:41 Palpitati ons 39741103 Active 2021 KAMILAH LOPEZ, FAMILY PRESERVATION OFFICER [address] [place], [address] , [facility] 2 16:55:59 Supravent ricular tachycard ia 9978524 Active 2021 KAMILAH LOPEZ, FAMILY PRESERVATION OFFICER [address] [place], [address] , [facility] 2 16:56:26 Tendiniti s of right forearm 19895493662 719843 Active 2022 BALA RAHMAN, PT [address] [place], [address] , [facility] 3 15:01:54 Atrophy of muscle of right shoulder 61995019489 9104 Active 2022 BALA RAHMAN, PT [address] [place], [address] , [facility] 3 15:01:58 Lateral epicondyl itis 969792906 Active 2022 BALA RAHMAN, PT [address] [place], [address] , [facility] 3 19:19:45 Spasm 38260807 Active 2022 BALA RAHMAN, PT [address] [place], [address] , [facility] 3 19:19:50 Problem Notes None recorded. Procedures Surgical History Date Name Laterality Status Provider Name and Address Organization Details Recorded Time 025 EKG completed VENKATA MORRIS, FAMILY PRESERVATION OFFICER [address] [place], [address], [facility] 06/20/2025 15:58:24 025 Endoscopy Nasal; Diagnostic completed LAUREN GRIFFIN MD [address] [place], [address], [facility] 05/23/2025 13:19:52 025 Destruction MN Lesion; trunk, arm, leg completed Steph Washington [facility] 01/30/2025 15:00:42 025 Biopsy Skin Lesion; Tangential completed LOUISE ROSS PA-C [address] [place], [address], [facility] 02/03/2025 19:43:10 025 Endoscopy Nasal; Diagnostic completed LAUREN GRIFFIN MD [address] [place] [address], [address], [facility] 12/28/2024 14:10:00 025 Endoscopy Nasal; Biospy, Polypectomy or Debridement completed Laila Bhatia [facility] 11/27/2024 15:18:30 024 Stress Test - Nuclear completed YURY MORELAND MD [address] [place], [address], [facility] 08/09/2024 16:32:59 024 Biopsy Skin Lesion; Tangential completed Fernanda Matute [facility] 08/01/2024 15:29:33 024 EKG completed VENKATA MORRIS, FAMILY PRESERVATION OFFICER [address] [place], [address], [facility] 07/06/2024 11:30:16 024 Synvisc One Injection completed Soni Maldonado [facility] 06/05/2024 11:20:07 024 Destruction Premalignant Lesion(s) completed Andreina Muse [facility] 01/30/2024 15:37:40 024 Synvisc One Injection completed Soni Maldonado [facility] 09/20/2023 15:05:25 024 Laryngoscopy Flex completed Vincent De La Rosa [facility] 09/08/2023 14:40:07 023 Destruction Premalignant Lesion(s) completed Andreina Muse [facility] 07/11/2023 14:11:59 023 Diffusion Capacity completed VALARIE MEYERS PA-C [address] [place], [address], [facility] 04/26/2023 16:53:09 023 Lung Volumes, Plethysmography completed VALARIE MEYERS PA-C [address] [place], [address], [facility] 04/26/2023 16:53:12 023 Spirometry completed VALARIE MEYERS PA-C [address] [place], [address], [facility] 04/26/2023 16:53:16 023 Tympanogram completed TAMIR PHAM, AUD [address] [place], [address], [facility] 02/11/2023 09:56:33 023 Audiogram completed TAMIR PHAM, AUD [address] [place], [address], [facility] 02/11/2023 09:56:25 023 Terra-Hallpike completed YURY OROZCO, FAMILY PRESERVATION OFFICER [address] [place], [address], [facility] 02/11/2023 11:04:26 023 Cerumen removal - Instruments, Unilateral completed YURY OROZCO, FAMILY PRESERVATION OFFICER [address] [place], [address], [facility] 02/11/2023 11:04:16 023 Destruction Premalignant Lesion(s) completed Andreina Muse [facility] 01/06/2023 10:05:27 023 EKG completed VENKATA MORRIS, FAMILY PRESERVATION OFFICER [address] [place], [address], [facility] 12/22/2022 12:14:26 023 PT Manual Therapy completed BALA RAHMAN, PT [address] [place], [address], [facility] 11/16/2022 13:59:41 023 PT Therapeutic Exercise completed BALA RAHMAN, PT [address] [place], [address], [facility] 11/16/2022 13:57:57 023 PT Ultrasound completed BALA RAHMAN, PT [address] [place], [address], [facility] 11/16/2022 13:59:49 023 PT Manual Therapy completed BALA RAHMAN, PT [address] [place], [address], [facility] 11/08/2022 19:18:33 023 PT Therapeutic Exercise completed BALA RAHMAN, PT [address] [place], [address], [facility] 11/08/2022 19:15:09 023 PT Ultrasound completed BALA RAHMAN, PT [address] [place], [address], [facility] 11/08/2022 19:18:24 02/22/2 023 PT Evaluation - Low Complexity completed BALA RAHMAN, PT [address] [place], [address], [facility] 10/20/2022 14:53:00 023 PT Therapeutic Exercise completed BALA RAHMAN, PT [address] [place], [address], [facility] 10/20/2022 14:53:28 023 Endoscopy Nasal; Diagnostic completed Sherie Hudson [facility] 09/02/2022 11:51:54 022 Destruction BN Lesions completed [facility] 07/05/2022 11:04:13 022 Destruction MN Lesion; trunk, arm, leg completed [facility] 03/31/2022 16:29:14 022 Shave Lesion; trunk, arm, leg completed [facility] 03/09/2022 12:27:47 022 Destruction Premalignant Lesion(s) completed [facility]lesi[facility] 03/09/2022 12:22:34 022 Synvisc One Injection completed Paulette Hammer [facility] 01/06/2022 10:38:32 022 VAS - Carotid Duplex completed TONIE CARRINGTON MD [address] [place], [address], [facility] 12/03/2021 15:57:59 022 Bubbles Echocardiogram completed BEN HERNANDEZ MD [address] [place], [address], [facility] 12/03/2021 14:57:01 022 EKG completed Vicki Ledesma [facility] 11/19/2021 09:53:59 022 Destruction Premalignant Lesion(s) completed Fernanda Matute [facility] 09/23/2021 10:18:48 021 Nasal Endoscopy completed Ellen Headley [facility] 08/10/2021 17:01:02 021 Synvisc One Injection completed CHANDA ROMERO PA-C [address] [place], [address], [facility] 03/26/2021 11:25:31 021 Injection - Tendon Sheath/Ligament completed GRAHAM DYKES MD [address] [place], [address], [facility] 03/25/2021 10:50:29 021 Destruction MN Lesion; trunk, arm, leg completed LOUISE ROSS PA-C [address] [place], [address], [facility] 12/05/2020 15:59:45 021 Biopsy Skin Lesion; Tangential completed Emy Davis [facility] 12/03/2020 10:53:00 021 Destruction Premalignant Lesion(s) completed Emy Davis [facility] 12/03/2020 11:03:08 021 Orthotic, FO, Dynamic Prefab completed JOLLY ROUSE/Rolo, CHT [address] [place], [address], [facility] 10/24/2020 08:49:59 021 PT Manual Therapy completed JOLLY ROUSE/Rolo, CHT [address] [place], [address], [facility] 10/24/2020 08:49:54 021 PT Paraffin Bath completed JOLLY ROUSE/Rolo, CHT [address] [place], [address], [facility] 10/23/2020 08:31:53 021 PT Manual Therapy completed JOLLY ROUSE/Rolo, CHT [address] [place], [address], [facility] 09/19/2020 11:16:16 021 PT Paraffin Bath completed JOLLY ROUSE/Rolo, CHT [address] [place], [address], [facility] 09/19/2020 11:15:50 021 PT Hot/Cold Pack completed EVELYN CANALES, OTR/L, CHT [address] [place], [address], [facility] 09/10/2020 11:37:39 021 PT Manual Therapy completed EVELYN CANALES, OTR/L, CHT [address] [place], [address], [facility] 09/10/2020 11:37:37 021 OT Evaluation - Moderate complexity completed EVELYN CANALES, OTR/L, CHT [address] [place], [address], [facility] 09/05/2020 11:32:57 021 Orthotic, FO, Static Custom completed EVELYN CANALES, OTR/L, CHT [address] [place], [address], [facility] 09/05/2020 11:33:02 021 Destruction MN Lesion; trunk, arm, leg completed [facility] 09/03/2020 12:05:31 021 Biopsy Skin Lesion; Tangential completed [facility] 09/03/2020 12:02:31 021 Destruction Premalignant Lesion(s) completed [facility] 09/03/2020 12:00:32 020 PT Therapeutic Exercise completed BALA RAHMAN, PT [address] [place], [address], [facility] 07/04/2020 16:03:22 020 PT Therapeutic Exercise completed BALA RAHMAN, PT [address] [place], [address], [facility] 06/23/2020 18:48:36 020 PT Therapeutic Exercise completed BALA RAHMAN, PT [address] [place], [address], [facility] 06/13/2020 15:51:44 PT Manual Therapy completed BALA A JOSIAH, PT [address] [place], [address], [facility] 06/04/2020 13:09:44 020 PT Therapeutic Exercise completed BALA A JOSIAH, PT [address] [place], [address], [facility] 06/04/2020 13:09:33 020 PT Ultrasound completed BALA A JOSIAH, PT [address] [place], [address], [facility] 06/04/2020 13:09:55 PT Manual Therapy completed BALA A JOSIAH, PT [address] [place], [address], [facility] 05/20/2020 18:03:48 PT Therapeutic Exercise completed BALA A JOSIAH, PT [address] [place], [address], [facility] 05/20/2020 18:04:39 020 PT Ultrasound completed BALA A JOSIAH, PT [address] [place], [address], [facility] 05/20/2020 18:04:03 020 PT Evaluation - Low Complexity completed BALA A JOSIAH, PT [address] [place], [address], [facility] 05/09/2020 16:57:46 020 PT Therapeutic Exercise completed BALA A JOSIAH, PT [address] [place], [address], [facility] 05/09/2020 16:58:14 020 PT Ultrasound completed BALA A JOSIAH, PT [address] [place], [address], [facility] 05/09/2020 16:59:06 020 Orthotic, HFO, Static Custom completed EVELYN CANALES, OTR/L, CHT [address] [place], [address], [facility] 02/27/2020 13:25:40 020 Destruction Premalignant Lesion(s) completed Steph Willinghamley [facility] 02/13/2020 09:19:10 020 PT Evaluation - Low Complexity completed BALA RAHMAN, PT [address] [place], [address], [facility] 10/01/2019 19:42:57 020 PT Therapeutic Exercise completed BLAA RAHMAN, PT [address] [place], [address], [facility] 10/01/2019 19:43:05 020 Injection - Joint/Bursa, Interm completed GRAHAM DYKES MD [address] [place], [address], [facility] 10/01/2019 08:31:29 020 Endoscopy Nasal; Diagnostic completed Savi Gonsales [facility] 09/06/2019 08:56:05 019 Orthotic, HFO, Static Custom completed EVELYN CANALES, OTR/L, CHT [address] [place], [address], [facility] 06/04/2019 14:36:14 019 Endoscopy Nasal; Biospy, Polypectomy or Debridement completed Felicitas [facility] 05/30/2019 13:32:18 019 thumb surgery completed Emy Mohan [facility] 05/30/2019 13:01:13 019 Tympanogram completed TAYLER LÓPEZ, AUD [address] [place], [address], [facility] 01/01/2019 10:46:21 019 Audiogram completed TAYLER LÓPEZ, AUD [address] [place], [address], [facility] 01/01/2019 10:46:19 019 Laryngoscopy Flex completed Felicitas [facility] 01/01/2019 11:59:23 019 Destruction Premalignant Lesion(s) completed [facility] 11/14/2018 10:57:46 019 Destruction BN Lesions completed [facility] 11/14/2018 10:58:02 019 Endoscopy Nasal; Biospy, Polypectomy or Debridement completed Kalin Joseph [facility] 09/28/2018 10:53:01 018 General Surgery completed Lilli Star [facility] 05/10/2018 14:28:11 018 Injection - Tendon Sheath/Ligament completed SONI MAYES PA-C [address] [place], [address], [facility] 04/07/2018 15:04:57 018 Endoscopy Nasal; Biospy, Polypectomy or Debridement completed Felicitas Umana [facility] 03/30/2018 15:24:47 018 I&D Abscess/Cyst Single/Simple completed [facility] 12/22/2017 10:33:38 018 Injection - Intralesional completed DEVON ISAACS, FAMILY PRESERVATION OFFICER [address] [place], [address], [facility] 12/22/2017 11:27:35 018 PT Therapeutic Exercise completed BALA RAHMAN, PT [address] [place], [address], [facility] 12/08/2017 18:00:45 018 PT Evaluation - Low Complexity completed BALA RAHMAN, PT [address] [place], [address], [facility] 11/14/2017 18:35:08 018 Destruction Premalignant Lesion(s) completed [facility] 11/10/2017 11:30:30 018 Destruction BN Lesions completed [facility] 11/10/2017 11:31:29 018 Injection - Tendon Sheath/Ligament completed SONI MAYES PA-C [address] [place], [address], [facility] 10/31/2017 16:26:09 018 Endoscopy Nasal; Biospy, Polypectomy or Debridement completed [facility] 10/27/2017 13:35:50 017 Endoscopy Nasal; Biospy, Polypectomy or Debridement completed Sherie Hudson [facility] 07/18/2017 11:52:37 017 Endoscopy Nasal; Biospy, Polypectomy or Debridement completed [facility] 05/25/2017 08:34:58 017 Breast Surgery completed Candacemichelle Gaona [facility] 05/25/2017 08:10:17 017 Biopsy Skin completed [facility] 03/15/2017 15:07:02 017 Destruction Premalignant Lesion(s) completed [facility] 03/15/2017 15:22:34 017 Destruction BN Lesions completed [facility] 03/15/2017 15:23:02 017 Endoscopy Nasal; Biospy, Polypectomy or Debridement completed [facility] 02/24/2017 11:31:32 017 Review of Med Recs/Compl forms completed [facility] 02/03/2017 12:14:00 017 Endoscopy Nasal; Diagnostic completed [facility] 02/03/2017 12:15:20 017 Endoscopy Nasal; Diagnostic completed [facility] 01/06/2017 09:51:33 017 Endoscopy Nasal; Biospy, Polypectomy or Debridement completed [facility] 12/01/2016 13:51:14 017 Nasopharyngoscopy completed [facility] 11/10/2016 11:32:31 017 Review of Med Recs/Compl forms completed [facility] 11/10/2016 11:27:30 017 Endoscopy Nasal; Biospy, Polypectomy or Debridement completed Maria Ines Stiles [facility] 11/04/2016 13:17:46 017 PT Therapeutic Exercise completed BALA RAHMAN, PT [address] [place], [address], [facility] 10/05/2016 14:10:15 017 PT Therapeutic Exercise completed BALA RAHMAN, PT [address] [place], [address], [facility] 09/29/2016 12:33:26 017 PT Evaluation - Low Complexity completed BALA RAHMAN, PT [address] [place], [address], [facility] 09/29/2016 12:33:09 017 Endoscopy Nasal; Biospy, Polypectomy or Debridement completed Sherie Hudson [facility] 09/23/2016 13:58:53 016 Ears/Nose/Throat Surgery completed [facility] 02/03/2017 10:22:51 Geospatial Intelligence Analyst Surgery completed [facility] 02/03/2017 10:18:36 Knee arthroscopy/surgery completed [facility] 02/03/2017 10:18:48 Shoulder joint surgery completed [facility] 02/03/2017 10:19:09 Shoulder joint surgery completed [facility] 02/03/2017 10:19:11 Unlisted px foot/toes completed [facility] 02/03/2017 10:19:34 Ears/Nose/Throat Surgery completed [facility] 02/03/2017 10:20:04 Breast Surgery completed Mary Mclain [facility] 02/13/2018 10:35:00 Carpal tunnel surgery completed [facility] 02/03/2017 10:20:44 Unlisted px hands/fingers completed [facility] 02/03/2017 10:20:51 Knee arthroscopy/surgery [facility] 02/03/2017 10:22:07 [facility] 13:58:23 Other completed Patricia Gallion [facility] Adwoa xington [facility] 08/24/2016 13:58:37 Other completed Patricia Gallion SULEIMAN Adwoa [facility]ington [facility] 08/24/2016 13:58:56 Other completed Patricia Jer SULEIMAN Le [facility]ington [facility] 08/24/2016 14:01:05 Other completed Patricia Gallion [facility]a [facility] 08/24/2016 14:04:12 Appendectomy completed Mary Cevallos [facility] 12/08/2023 10:24:54 Imaging Results None recorded. Procedure Notes None recorded. Medical Equipment None Reported. Allergies Allergen ID Allergen Name Allergen Category Reaction Reaction Severity Criticality Documentation Date Start Date Code Code System Note Provider Name and Address Organization Details Recorded Time [id number] prednison e medicatio n Not available Not available Not available 07/22/20162009 8640 RxNorm Mary Cevallos [facility] 8 10:24:29 166676 clindamyc in hydrochlo ride medicatio n nausea Not available Not available 07/22/20162012 82035 RxNorm Candace Borwn mere [facility] 7 09:10:31 376702 vancomyci n hydrochlo ride medicatio n Not available Not available Not available 07/22/20162012 75419 RxNorm Candace Brown mere [facility] 7 09:11:12 792618 acetamino phen / hydrocodo ne medicatio n nausea severe Not available 07/22/20162010 13674 2 RxNorm React ion: NAUSE A;Sev erity : Sever e; Comme nt: Donna ed By: Jennifer fernandez Date: 2010 4:54: 20 PM; Not Available [facility] 6 10:18:05 361288 Substance with prostagla ndin-endo peroxide synthase isoform 2 inhibitor mechanism of action (substanc e) Not available other Not available Not available 07/22/20162009 87576 0005 SNOMED Comme nt: CAUSE ULCER S Candace Brown n [facility] 7 09:10:42 706038 Substance with sulfonami de structure and antibacte rial mechanism of action (substanc e) medicatio n Not available Not available Not available 07/22/20162006 89553 8003 SNOMED Candace Brown n [facility] 7 09:11:08 839425 Reglan medicatio n Not available Not available Not available 07/22/20162009 9230 RxNorm Mary Cevallos [facility] 4 10:03:21 351689 Cymbalta medicatio n Not available Not available Not available 07/22/20162010 33013 4 RxNorm Candace Brown n [facility] 7 09:10:46 991587 gabapenti n medicatio n rash Not available Not available 07/22/20162012 18409 RxNorm Candace Brown n [facility] 7 09:10:51 326180 Medrol medicatio n rash Not available Not available 07/22/20162014 2 RxNorm Mary Cevallos [facility] 8 10:24:22 485620 codeine medicatio n Not available Not available Not available 07/22/20162006 2670 RxNorm Candace Brown n [facility] 7 09:10:34 579045 Biaxin medicatio n other Not available Not available 07/22/20162006 9 RxNorm Comme nt: PT ON RELPA X SHOUL D NOT TAKE BIAXI N WITH THIS DRUG Candace Brown mere [facility] 7 09:10:23 065396 midazolam hydrochlo ride medicatio n Not available Not available Not available 07/22/20162013 8 RxNorm Candace Brown n [facility] 7 09:11:14 080461 acetamino phen / hydrocodo ne medicatio n nausea Not available Not available 07/23/20162012 53751 2 RxNorm Candace severino [facility] 7 09:10:55 486812 Cipro medicatio n abdominal pain Not available Not available 02/13/201860440 3 RxNorm Mary Cevallos [facility] 8 10:25:49 526636 Topamax medicatio n Not available Not available Not available 12/14/2021 26613 3 RxNorm Margarita Cole [facility] 2 11:53:05 439573 Non-stero idal anti-infl ammatory agent (substanc e) medicatio n Not available Not available Not available 12/14/2021 09085 5008 [facility] 11:53:13 004680 amoxicill in medicatio n Not available Not available Not available 09/12/2024 723 RxNorm Notif ied of aller gy 09/12 Ginny Edgar [facility] 5 15:26:18 042731 lidocaine medicatio n rash Not available Not available 11/27/2024 6387 RxNorm decli gideon topic al lidoc carleen due to rash/ burni ng Jeny Stone [facility] 5 15:04:06 910264 gabapenti n medicatio n swelling Not available high 07/26/20252022 67713 RxNorm Not Available clive - [employer] - prod 5 10:01:08 368338 vancomyci n medicatio n rash Not available low 07/26/20252022 82659 RxNorm Not Available clive - [employer] - prod 5 10:01:08 173351 clindamyc in Not available Not available Not available Not available 07/26/20252022 2582 RxNorm Upset stoma ch Not Available clive - [employer] - prod 5 10:01:38 690022 nebivolol medicatio n swelling Not available Not available 07/26/20252022 43529 RxNorm palpi tatio ns Not Available clive - [employer] - prod 5 10:01:38 660328 pregabali n medicatio n swelling Not available low 07/26/20252022 61635 2 RxNorm Not Available clive - [employer] - prod 5 10:01:38 112450 fentanyl medicatio n Not available Not available Not available 07/26/20252014 4337 RxNorm migra ine unrec ogniz ed react ion (text : Other (See Comme nts), code: 95012 003) (from exter nal sourc e) Not Available clive [employer] - prod 5 10:02:01 114197 metoclopr amide hydrochlo ride medicatio n Not available Not available Not available 07/26/20252014 80465 6 RxNorm migra ine unrec ogniz ed react ion (text : Other (See Comme nts), code: 83290 003) (from exter nal sourc e) Not Available clive [employer] - prod 5 10:02:01 622896 amoxicill in / clavulana te medicatio n Not available Not available Not available 07/26/20252024 90438 RxNorm Other React ion(s ): abdom inal pain Not Available [employer] - prod 5 10:03:25 786049 celecoxib medicatio n Not available Not available Not available 07/26/20252014 43733 7 RxNorm Not Available [employer] - prod 5 10:03:25 158156 ciproflox acin hydrochlo ride medicatio n Not available Not available Not available 07/26/20252023 13579 RxNorm Extre me abdom inal pian Not Available clive [employer] - prod 5 10:03:25 549129 ciproflox acin medicatio n Not available Not available low 07/26/20252024 2551 RxNorm Other React ion(s ): abdom inal pain, GI Intol eranc e Abdom inal pain Not Available clive - [employer] - prod 5 10:03:25 527231 clarithro mycin medicatio n Not available Not available Not available 07/26/20252006 96774 RxNorm Was told not to take with migra ine medic ation Biaxi n Not Available clive - [employer] - prod 5 10:03:25 251089 clindamyc in hydrochlo ride medicatio n Not available Not available Not available 07/26/20252012 95772 RxNorm Not Available [employer] - prod 5 10:03:25 061396 duloxetin e medicatio n Not available Not available high 07/26/20252010 61149 RxNorm Other React ion(s ): Not avail able LEG SWELL ING Not Available clive - [employer] - prod 5 10:03:25 435917 hydrocodo ne Not available Not available Not available low 07/26/20252018 5489 RxNorm Not Available clive - [employer] - prod 5 10:03:25 021307 indometha cornelius sodium medicatio n Not available Not available Not available 07/26/20252014 47074 12 RxNorm Not Available clive - [employer] - prod 5 10:03:25 367111 levofloxa cornelius medicatio n Not available Not available high 07/26/20252017 95862 RxNorm Ruptu red tendo ns and paty er finge r Not Available clive - [employer] - prod 5 10:03:25 857979 metformin medicatio n Not available Not available Not available 07/26/20252018 6809 RxNorm Other React ion(s ): GI Intol eranc e Not Available clive - [employer] - prod 5 10:03:25 114677 midazolam hydrochlo ride medicatio n Not available Not available Not available 07/26/20252013 44230 8 RxNorm Other React ion(s ): Not avail able Not Available [employer] - prod 5 10:03:25 317311 naproxen sodium medicatio n Not available Not available Not available 07/26/20252024 06024 2 RxNorm Other React ion(s ): Unkno wn Not Available [employer] - prod 5 10:03:25 264754 sulfameth oxazole / trimethop rim medicatio n Not available Not available [facility] 07/26/20252012 05471 RxNorm GENER NARCISO D SWELL ING Not Available [employer] - prod 5 10:03:25 301703 lactase medicatio n Not available Not available Not available 07/26/20252016 80206 RxNorm Migra chang Not Available [employer] - prod 5 10:03:25 167030 topiramat e medicatio n Not available Not available [facility] 07/26/20252021 71687 RxNorm Lasts days Other React ion(s ): Not avail able Not Available [employer] - prod 5 10:03:25 578083 duloxetin e hydrochlo ride medicatio n Not available Not available Not available 07/26/20252016 07788 0 RxNorm Not Available [employer] - prod 5 10:03:29 Medications [...] completed Not Available Not Available Not Available Ely 3 active Not Available Not Avail able [...] Available Not Available Not Available Fluarix Quad 4068-9449 (PF) 60 mcg (15 mcg x 4)/0.5 [...] Available Not Available Not Available Fluzone High-Dose 8602-0973 (PF) 180 mcg/0.5 mL intramusc ular syringe [...] Updated DateTime 5 175.26 cm 25.3 kg/m2 15525.3 g 96 % 65 /min 114/62 mm[Hg] Karolina BEARDEN [facility] 5 15:51:59 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 Question Answer Notes LastModified by Organizat ion Details LastModified Time Tobacco Smoking Status Never Smoker Patricia [facility] 08/24/2016 13:57:44 What Is Your Level Of Caffeine Consumption? Occasional Information not available 10/31/2017 How Much Tobacco Do You Chew? None [email or web address] Information not available 11/05/2020 Which Of Your [...] Of Your Most Recent Tobacco Screening? 08/15/2025 [email or web address] Information not available 08/14/2025 How Many Children Do You Have? 4 [email or web address] Information not available 11/19/2021 What Is Your Relationship Status? [email or web address] Information not available 11/19/2021 How Much Tobacco Do You Smoke? No [email or web address] Information not available 11/05/2020 Has Tobacco Cessation Counseling Been Provided? No [email or web address] Information not available 12/22/2022 How Many Years Have You Smoked Tobacco? 0 [email or web address] Information not available 11/05/2020 Have You Recently Traveled Abroad? No [email or web address] Information not available 11/19/2021 Sex: Female Functional [...] used smokeless tobacco? Never used smokeless tobacco [email or web address] Information not available 11/05/2020 Are you currently employed? 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 Never used electronic cigarettes [email or web address] Information not available 11/05/2020 What is your [...] Pain N Stomach trouble N Heart Attack (PR) N Ulcers Y Diabetes Y Rheumatic Fever [...] Time zoster live 6 completed Not Available [facility] 08/07/2025 14:28:53 Influenza, adjuvanted, trivalent, PF 7 completed Not Available [facility] 08/07/2025 14:28:53 Influenza, high-dose, trivalent, PF 8 completed Not Available [facility] 08/07/2025 14:28:53 Influenza, high-dose, trivalent, PF 9 completed Not Available [facility] 08/07/2025 14:28:53 Influenza, high-dose, quadrivalent, PF 0 completed Not Available [facility] 08/07/2025 14:28:53 zoster recombinant 0 completed Not Available [facility] 08/07/2025 14:28:53 zoster recombinant 1 completed Not Available [facility] 08/07/2025 14:28:53 Influenza, adjuvanted, quadrivalent, PF 1 completed Not Available [facility] 08/07/2025 14:28:53 Influenza, high-dose, quadrivalent, PF 2 completed Not Available [facility] 08/07/2025 14:28:53 RSV, bivalent, protein subunit RSVpreF, diluent reconstituted, 0.5 mL, PF 3 completed Not Available [facility] 08/07/2025 14:28:53 Influenza, high-dose, quadrivalent, PF 3 completed Not Available [facility] 08/07/2025 14:28:53 COVID-19, mRNA, LNP-S, PF, 50 mcg/0.5 mL 4 completed Not Available [facility] 08/07/2025 14:28:53 RSV, recombinant, protein subunit RSVpreF, adjuvant reconstituted, 0.5 mL, PF 4 completed Not Available [facility] 08/07/2025 14:28:53 Influenza, high-dose, trivalent, PF 4 completed Not Available [facility] 08/07/2025 14:28:53 Pneumococcal conjugate PCV21, polysaccharide [id number] conjugate, PF 5 completed Not Available [facility] 08/07/2025 14:28:53 Influenza, high-dose, trivalent, PF 5 completed Not Available [facility] 08/07/2025 14:28:53 COVID-19, mRNA, LNP-S, PF, 30 mcg/0.3 mL dose 1 completed Marino Hernandez [facility] 12/11/2024 15:52:44 COVID-19, mRNA, LNP-S, PF, 30 mcg/0.3 mL dose 1 completed Marino Hernandez [facility] 12/11/2024 15:52:44 COVID-19, mRNA, LNP-S, PF, 30 mcg/0.3 mL dose 1 completed Marinochela Hernandez [facility] 12/11/2024 15:52:44 Past Encounters Encounter ID Performer Location Encounter Start Date Encounter Closed Date Diagnosis/Indication Diagnosis SNOMED-CT Code Diagnosis ICD10 Code Diagnosis IMO Codes Diagnosis Note [id number] LAUREN GRIFFIN MD [facility] [address] [place] [address] 05/23/2025 12:44:35 05/23/2025 13:27:03 Chronic recurrent sinusitis 720291296 J32.9 -2007 - Septoplast y, Left ESS [...] obtained today in office Laryngopha ryngeal reflux 521963842 K21.9 -2008 - s/p [employer]ion [...] may return to singing. Tam's esophagus 3029 42099 K22.70 02/09/24- managed with Dr. 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 No evidence of recurrence most recent heart monitor. continue with BB. Obstructiv e sleep apnea syndrome 98985976 G47.33 Not currently treating Hypertensive disorder 38 668759 I10 Stable.Low sodium diet. Type 2 dereje betes mellitus 88559539 E11.9 PCP monitoring . Hyperlipidemia 93412369 E78.5 Notes she cannot take statin, notes it caused peripheral neuropathy Discussed importance of tight control of lipids d/t Hx of CADNow presents wtih TIA symptoms.L DL goal < 55, not calculable on recent lipid panel d/t markedly elevated TGL.Will try to get PSCK9i covered for her. Transient neurological symptoms 023193512 R29.818 [id number] She reports symptoms concerning for TIAShe has Hx of echo with normal bubble in the pastCaroti d duplex will be arranged to r/o CASHolter placed to evaluate PAFWill review results when available, further recommenda tions will be made at that time. Health Concerns Section Related Observation LastModified by Organization Detai ls LastModified Time None Recorded Concern Status LastModified by Organization Details LastModified Time None Recorded Payers Encounter Date Sequence Insurance Name Policy Number Policy Salcido Covered Member ID Salcido Member ID Guarantor Name 06/20/2025 1 [place] Candace Bryant [id number] Candace Bryant 06/20/2025 2 [employer] (MEDICARE SUPPLEMENT) Candace Bryant [id number] Candace Bryant Notes Date Note Type Note [...] normal LV function. Had repeat carotid at [facility] which showed < 50% bilat ICA stenosis. Brain MRI 12/2022 was normal. 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 CCTA done at [facility] gatston score = 161Left Main: CAD-RADS [...] she had complaint of CP.She underwent Lexiscan 08/09/20243091Pzajegjpgg2. Normal myocardial perfusion at rest and stress.2. [...] symptoms recently while trying to sing at [employer], notes something came over her and she could not get the words out. PCP felt she may be having TIA symptoms.She has been intolerant to statin therapy and is currently not treating HLP. She is interested in PSCK9i, we have discussed this in the past, but is agreeable now.She denies CP, orthopnea, PND, syncope, LE edema. VENKATA MORRIS, FAMILY PRESERVATION OFFICER [address] [place], [address], [facility] 06/21/2025 18:41:05 OBGyn Episode No OBEpisode recorded.
--- OUTSIDE RECORDS SUMMARY | 2025-08-16 15:56 | XMS_ITS | Continuity of Care Document ---
Author Organization [facility], [place] [address] Address [address] [place] [address] Care Team Providers Care Teacher Public Health Name Role Phone JERSEY NAVAS Shampoo Person TAYLER SWEENEY OTHER VIKTORIA CORDOVA OTHER YURY CESAR OTHER GRAHAM JEAN Primary Care Provider [phone] SERA NO Breast Surgeon GRAHAM CORONA Urologist VALARIE MEYERS Band Builder YURY ABRAHAM Heel Breaster VENKATA MORRIS Coremaker Apprentice LU WRIGHT General Surgeon LAUREN GRIFFIN Environmental Specialist Assessment No assessment recorded. Plan of Treatment Reminders Order Date Submit Date Provider Last Modified By Organization Details Last Modified Time Details Appointments RECHECK 2025 01:30P M LAUREN GRIFFIN MD Not available Not available Not available RECHECK 2025 11:45A M VENKATA MORRIS [employer] Not available Not available Not available DERM ESTABLISH ED 2025 02:40P M LOUISE ROSS PA-C Not available Not available Not available Lab None recorded. Referral None recorded. Procedures None recorded. Surgeries None recorded. Imaging None recorded. Medication Orders Compound Gentamici n 80 mg - Mupirocin 20 mg - Budesonid e 1 mg capsules #60 2024 025 CLIVE Rousseaurx Campbell, [address] [place], [address], 05/23/2025 13:12:22 Patient TargetsNo targets recorded. Patient Instructions Encounter Date Encounter Id Patient Instructions Last Modified By Organization Details Last Modified Time 05/23/2025 [id number] 1. Laryngoscopy flex performed in office today. [...] her progress rvanmetre Not available 05/23/2025 13:22:55 Reason for Referral None Reported. Results Created Date Observation Date Name Description Value Unit Range Abnormal Flag Note LastModifiedBy Organization Detail LastModifiedTime 06/21/2006/20/2025 elect isauraar diogr am No observ ation record ed. BARCODE Not Available 2024 09:08:54 07/01/2007/01/2025 US, carot id arter y No observ ation record ed. [facility] Radiology Cardiology [address] , [place], [address], 07/02/2025 13:05:58 07/19/2007/15/2025 event monit or No observ ation record ed. CLIVE Not Available 2024 23:51:59 Result Notes None recorded. Problems Name Problem SNOMED Code Status Onset Date Resolution Date Notes Provider Name and Address Organization Details Recorded Time Lateral epicondyl itis 888664273 Active 2014 From Automated Load;Prov ider: Graham Dykes;S tatus: Active Not Available [facility] 6 05:16:01 Acquired trigger finger 5776861 Active 2014 From Automated Load;Prov ider: Graham Dykes;S tatus: Active Not Available [facility] 6 05:16:00 Dyspnea 741672522 Active 2014 From Automated Load;Prov ider: Valarie Meyers;Sta tus: Active Not Available [facility] 6 05:16:00 Obstructi ve sleep apnea syndrome 12122045 Active 2014 From Automated Load;Prov ider: Valarie Meyers;Sta tus: Active Not Available [facility] 6 05:16:01 Idiopathi c osteoarth ritis 135769411 Active 2014 From Automated Load;Prov ider: Low Peter;St atus: Active Not Available [facility] 6 05:16:00 Pain in right knee Active 2014 From Automated Load;Prov ider: Low Peter;St atus: Active Not Available [facility] 6 05:16:00 Insomnia 310576585 Active 2015 From Automated Load;Prov ider: Valarie Meyers;Sta tus: Active Not Available [facility] 6 05:16:00 Melanocyt ic nevus of trunk 881307660 Active 2015 From Automated Load;Prov ider: Devon Isaacs;S tatus: Active Not Available [facility] 6 05:16:00 Eczema 84125668 Active 2015 From Automated Load;Prov ider: Devon Isaacs;S tatus: Active Not Available [facility] 6 05:16:01 Senile hyperkera tosis 610721484 Active 2015 From Automated Load;Prov ider: Devon Isaacs;Frankie tatus: Active Not Available [facility] 6 05:16:01 Lentigo Active 2015 From Automated Load;Prov ider: Devon Isaacs;S tatus: Active Not Available [facility] 6 05:16:01 Acute sinusitis 41943553 Active 2015 From Automated Load;Prov ider: Aaron Chauhan;Sta tus: Active Not Available [facility] 6 05:16:00 Sinusitis 57819133 Active 2015 From Automated Load;Prov ider: Aaron Chauhan;Sta tus: Active Not Available [facility] 6 05:16:00 Vasomotor rhinitis 1799044 Active 2015 From Automated Load;Prov ider: Aaron Chauhan;Sta tus: Active Not Available [facility] 6 05:16:00 Hypertrop hy of nasal turbinate s 38816659 Active 2015 From Automated Load;Prov ider: Aaron Chauhan;Sta tus: Active Not Available [facility] 6 05:16:00 Nasal polyp Active 2015 From Automated Load;Prov ider: Aaron Chauhan;Sta tus: Active Not Available [facility] 7 06:09:08 Low back pain 858319450 Active 2016 BALA RAHMAN, PT [address] [place], [address] , [facility] 7 12:34:12 Abnormal posture 06729407 Active 2016 BALA RAHMAN, PT [address] [place], [address] , [facility] 7 12:34:14 Muscle weakness 08039298 Active 2016 BALA RAHMAN, PT [address] [place], [address] , [facility] 7 12:34:15 Lumbar spine stiff 772597664 Active 2016 BALA RAHMAN, PT [address] [place], [address] , [facility] 7 12:34:16 Contusion of rib 418820581 Active 2017 BALA RAHMAN, PT [address] [place], [address] , [facility] 8 18:42:00 Stiff back 837015334 Active 2017 ABLA RAHMAN, PT [address] [place], [address] , [facility] 8 18:42:01 Rib pain 339490814 Active 2017 BALA RAHMAN, PT [address] [place], [address] , [facility] 8 18:42:03 Infection of sebaceous cyst 913636266 Active 2017 left thigh [facility] 8 14:27:30 Osteoarth ritis of joint of hand 79337817 Active 2019 BALA RAHMAN, PT [address] [place], [address] , [facility] 0 19:51:53 Pain of right hand 02226794606 9109 Active 2019 BALA RAHMAN, PT [address] [place], [address] , [facility] 0 19:51:55 Stiffness of joint of right hand 61546596684 9106 Active 2019 BALA RAHMAN, PT [address] [place], [address] , [facility] 0 19:51:57 Contractu re of joint of finger of left hand due to scar 74777024248 017498 Active 2019 BALA RAHMAN, PT [address] [place], [address] , [facility] 0 17:06:15 Thumb joint stiff 666436879 Active 2019 BALA RAHMAN, PT [address] [place], [address] , [facility] 0 17:06:30 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 74120490 Active 2019 BALA RAHMAN, PT [address] [place], [address] , [facility] 0 17:07:01 Pain of right shoulder joint 27032314794 986919 Active 2019 BALA RAHMAN, PT [address] [place], [address] , [facility] 0 18:53:50 Essential hypertens ion 69973283 Active 2021 KAMILAH LOPEZ, [employer]QU[employer]MENT SALES [address] [place], [address] , [facility] 2 16:55:28 Type 2 diabetes mellitus 97813071 Active 2021 KAMILAH LOPEZ, [employer] [address] [place], [address] , [facility] 2 16:55:41 Palpitati ons 71219634 Active 2021 KAMILAH LOPEZ, [employer] [address] [place], [address] , [facility] 2 16:55:59 Supravent ricular tachycard ia 9355441 Active 2021 KAMILAH LOPEZ, [employer] [address] [place], [address] , [facility] 2 16:56:26 Tendiniti s of right forearm 89522865524 195213 Active 2022 BALA RAHMAN, PT [address] [place], [address] , [facility] 3 15:01:54 Atrophy of muscle of right shoulder 32618715871 9104 Active 2022 BALA RAHMAN, PT [address] [place], [address] , [facility] 15:01:58 Lateral epicondyl itis 831594221 Active 2022 BALA Elayne JOSIAH, PT [address] [place], [address] , [facility] 3 19:19:45 Spasm 32890425 Active 2022 BALA RAHMAN, PT [address] [place], [address] , [facility] 3 19:19:50 Problem Notes None recorded. Procedures Surgical History Date Name Laterality Status Provider Name and Address Organization Details Recorded Time 025 EKG completed VENKATASera MORRIS, [employer] SALES [address] [place], [address], [facility] 06/20/2025 15:58:24 025 Endoscopy Nasal; Diagnostic completed LAUREN GRIFFIN MD [address] [place], [address], [facility] 05/23/2025 13:19:52 025 Destruction MN Lesion; trunk, arm, leg completed Steph Washington [facility] 01/30/2025 15:00:42 025 Biopsy Skin Lesion; Tangential completed LOUISE ROSS PA-C [address] [place] [address], [address], [facility] 02/03/2025 19:43:10 025 Endoscopy Nasal; Diagnostic completed LAUREN GRIFFIN MD [address] [place] [address], [address], [facility] 12/28/2024 14:10:00 025 Endoscopy Nasal; Biospy, Polypectomy or Debridement completed Laila Bhatia [facility] 11/27/2024 15:18:30 024 Stress Test - Nuclear completed YURY MORELAND MD [address] [place], [address], [facility] 08/09/2024 16:32:59 024 Biopsy Skin Lesion; Tangential completed Fernanda Matute [facility] 08/01/2024 15:29:33 024 EKG completed VENKATA MORRIS, [employer] SALES [address] [place], [address], [facility] 07/06/2024 11:30:16 024 Synvisc One Injection completed Soni Maldonado [facility] 06/05/2024 11:20:07 024 Destruction Premalignant Lesion(s) completed Andreina Muse [facility] 01/30/2024 15:37:40 024 Synvisc One Injection completed Soni Maldonado [facility] 09/20/2023 15:05:25 024 Laryngoscopy Flex completed [facility] 09/08/2023 14:40:07 023 Destruction Premalignant Lesion(s) completed Andreina Muse [facility] 07/11/2023 14:11:59 023 Diffusion Capacity completed VALARIE MEYERS PA-C [address] [place], [address], [facility] 04/26/2023 16:53:09 023 Lung Volumes, Plethysmography completed VALARIE MEYERS PA-C [address] [place], [address], [facility] 04/26/2023 16:53:12 023 Spirometry completed VALARIE MEYERS PA-C [address] [place], [address], [facility] 04/26/2023 16:53:16 023 Tympanogram completed TAMIR PHAM, AUD [address] [place], [address], [facility] 02/11/2023 09:56:33 023 Audiogram completed TAMIR PHAM, AUD [address] [place], [address], [facility] 02/11/2023 09:56:25 023 Broadbent-Hallpike completed YURY OROZCO, [employer] EQUIPMENT SALES [address] [place], [address], [facility] 02/11/2023 11:04:26 023 Cerumen removal - Instruments, Unilateral completed YURY OROZCO, [employer]MENT SALES [address] [place], [address], [facility] 02/11/2023 11:04:16 023 Destruction Premalignant Lesion(s) completed Andreina Muse [facility] 01/06/2023 10:05:27 023 EKG completed VENKATA MORRIS, [employer] EQU[employer]MENT SALES [address] [place], [address], [facility] 12/22/2022 12:14:26 023 PT Manual Therapy completed BALA RAHMAN, PT [address] [place] [place], [address], [facility] 11/16/2022 13:59:41 023 PT Therapeutic Exercise completed BALA RAHMAN, PT [address] [place], [address], [facility] 11/16/2022 13:57:57 023 PT Ultrasound completed BALA RAHMAN, PT [address] [place], [address], [facility] 11/16/2022 13:59:49 023 PT Manual Therapy completed ABLA RAHMAN, PT [address] [place], [address], [facility] 11/08/2022 19:18:33 023 PT Therapeutic Exercise completed BAAL RAHMAN, PT [address] [place], [address], [facility] 11/08/2022 19:15:09 023 PT Ultrasound completed BALA RAHMAN, PT [address] [place], [address], [facility] 11/08/2022 19:18:24 023 PT Evaluation - Low Complexity completed BALA RAHMAN, PT [address] [place], [address], [facility] 10/20/2022 14:53:00 023 PT Therapeutic Exercise completed BALA RAHMAN, PT [address] [place], [address], [facility] 10/20/2022 14:53:28 023 Endoscopy Nasal; Diagnostic completed Sherie Hudson [facility] 09/02/2022 11:51:54 022 Destruction BN Lesions completed [facility] 07/05/2022 11:04:13 022 Destruction MN Lesion; trunk, arm, leg completed Aleshia [facility] 03/31/2022 16:29:14 022 Shave Lesion; trunk, arm, leg completed [facility] 03/09/2022 12:27:47 022 Destruction Premalignant Lesion(s) completed [facility] 03/09/2022 12:22:34 022 Synvisc One Injection completed Paulette Hammer [facility] 01/06/2022 10:38:32 022 VAS - Carotid Duplex completed TONIE CARRINGTON MD [address] [place], [address], [facility] 12/03/2021 15:57:59 022 Bubbles Echocardiogram completed BEN HERNANDEZ MD [address] [place], [address], [facility] 12/03/2021 14:57:01 022 EKG completed Vicki Ledesma [facility] 11/19/2021 09:53:59 022 Destruction Premalignant Lesion(s) completed Fernanda Matute [facility] 09/23/2021 10:18:48 Nasal Endoscopy completed Ellen Headley [facility] 08/10/2021 17:01:02 021 Synvisc One Injection completed CHANDA ROMERO PA-C [address] [place], [address], [facility] 03/26/2021 11:25:31 021 Injection - Tendon Sheath/Ligament completed GRAHAM DYKES MD [address] [place], [address], [facility] 03/25/2021 10:50:29 021 Destruction MN Lesion; trunk, arm, leg completed LOUISE ROSS PA-C [address] [place], [address], [facility] 12/05/2020 15:59:45 021 Biopsy Skin Lesion; Tangential completed Emy Davis [facility] 12/03/2020 10:53:00 021 Destruction Premalignant Lesion(s) completed Emy Davis [facility] 12/03/2020 11:03:08 021 Orthotic, FO, Dynamic Prefab completed JOLLY ROUSE/Rolo, CHT [address] [place], [address], [facility] 10/24/2020 08:49:59 021 PT Manual Therapy completed JOLLY ROUSE/Rolo, CHT [address] [place], [address], [facility] 10/24/2020 08:49:54 021 PT Paraffin Bath completed JOLLY ROUSE/Rolo, CHT [address] [place], [address], [facility] 10/23/2020 08:31:53 021 PT Manual Therapy completed JOLLY ROUSE/Rolo, CHT [address] [place], [address], [facility] 09/19/2020 11:16:16 021 PT Paraffin Bath completed EVELYN CANALES, OTR/L, CHT [address] [place], [address], [facility] 09/19/2020 11:15:50 021 PT Hot/Cold Pack completed EVELYN CANALES, OTR/L, CHT [address] [place], [address], [facility] 09/10/2020 11:37:39 021 PT Manual Therapy completed EVELYN CANALES, OTR/L, CHT [address] [place], [address], [facility] 09/10/2020 11:37:37 021 OT Evaluation - Moderate complexity completed EVELYN CANALES, OTR/L, CHT [address] [place], [address], [facility] 09/05/2020 11:32:57 021 Orthotic, FO, Static Custom completed EVELYN CANALES, OTR/L, CHT [address] [place], [address], [facility] 09/05/2020 11:33:02 021 Destruction MN Lesion; trunk, arm, leg completed [facility] 09/03/2020 12:05:31 021 Biopsy Skin Lesion; Tangential completed [facility] 09/03/2020 12:02:31 021 Destruction Premalignant Lesion(s) completed [facility] 09/03/2020 12:00:32 020 PT Therapeutic Exercise completed BALA RAHMAN, PT [address] [place], [address], [facility] 07/04/2020 16:03:22 020 PT Therapeutic Exercise completed BALA RAHMAN, PT [address] [place], [address], [facility] 06/23/2020 18:48:36 PT Therapeutic Exercise completed BALA A JOSIAH, PT [address] [place], [address], [facility] 06/13/2020 15:51:44 PT Manual Therapy completed BALA A JOSIAH, PT [address] [place], [address], [facility] 06/04/2020 13:09:44 PT Therapeutic Exercise completed BALA A JOSIAH, PT [address] [place], [address], [facility] 06/04/2020 13:09:33 020 PT Ultrasound completed BALA A JOSIAH, PT [address] [place], [address], [facility] 06/04/2020 13:09:55 PT Manual Therapy completed BALA A JOSIAH, PT [address] [place], [address], [facility] 05/20/2020 18:03:48 PT Therapeutic Exercise completed BALA A JOSIAH, PT [address] [place], [address], [facility] 05/20/2020 18:04:39 020 PT Ultrasound completed BALA Elayne RAHMAN, PT [address] [place], [address], [facility] 05/20/2020 18:04:03 020 PT Evaluation - Low Complexity completed BALA A JOSIAH, PT [address] [place], [address], [facility] 05/09/2020 16:57:46 PT Therapeutic Exercise completed BALA A JOSIAH, PT [address] [place], [address], [facility] 05/09/2020 16:58:14 020 PT Ultrasound completed BALA A JOSIAH, PT [address] [place], [address], [facility] 05/09/2020 16:59:06 020 Orthotic, HFO, Static Custom completed EVELYN CANALES OTR/L, CHT [address] [place], [address], [facility] 02/27/2020 13:25:40 020 Destruction Premalignant Lesion(s) completed Steph Greenwood [facility] 02/13/2020 09:19:10 020 PT Evaluation - Low Complexity completed BALA RAHMAN, PT [address] [place], [address], [facility] 10/01/2019 19:42:57 020 PT Therapeutic Exercise completed BALA RAHMAN, PT [address] [place] [place], [address], [facility] 10/01/2019 19:43:05 020 Injection - Joint/Bursa, Interm completed GRAHAM DYKES MD [address] [place], [address], [facility] 10/01/2019 08:31:29 020 Endoscopy Nasal; Diagnostic completed Savi Gonsales [facility] 09/06/2019 08:56:05 019 Orthotic, HFO, Static Custom completed EVELYN CANALES OTR/L, CHT [address] [place], [address], [facility] 06/04/2019 14:36:14 019 Endoscopy Nasal; Biospy, Polypectomy or Debridement completed Felicitas Umana [facility] 05/30/2019 13:32:18 019 thumb surgery completed Emy Mohan [facility] 05/30/2019 13:01:13 019 Tympanogram completed TAYLER LÓPEZ, AUD [address] [place], [address], [facility] 01/01/2019 10:46:21 019 Audiogram completed TAYLER LÓPEZ, AUD [address] [place], [address], [facility] 01/01/2019 10:46:19 019 Laryngoscopy Flex completed [facility] 01/01/2019 11:59:23 019 Destruction Premalignant Lesion(s) completed [facility] 11/14/2018 10:57:46 019 Destruction BN Lesions completed [facility] 11/14/2018 10:58:02 019 Endoscopy Nasal; Biospy, Polypectomy or Debridement completed Kalin Joseph [facility] 09/28/2018 10:53:01 018 General Surgery completed Lilli Graves [facility] 05/10/2018 14:28:11 018 Injection - Tendon Sheath/Ligament completed SONI MAYES PA-C [address] [place], [address], [facility] 04/07/2018 15:04:57 018 Endoscopy Nasal; Biospy, Polypectomy or Debridement completed Felicitas [facility] 03/30/2018 15:24:47 018 I&D Abscess/Cyst Single/Simple completed Eloisa Quintero [facility] 12/22/2017 10:33:38 018 Injection - Intralesional completed DEVON ISAACS, [employer]ES [address] [place], [address], [facility] 12/22/2017 11:27:35 018 PT Therapeutic Exercise completed BALA RAHMAN, PT [address] [place], [address], [facility] 12/08/2017 18:00:45 018 PT Evaluation - Low Complexity completed BALA RAHMAN, PT [address] [place], [address], [facility] 11/14/2017 18:35:08 018 Destruction Premalignant Lesion(s) completed [facility] 11/10/2017 11:30:30 018 Destruction BN Lesions completed [facility] 11/10/2017 11:31:29 018 Injection - Tendon Sheath/Ligament completed SONI MAYES PA-C [address] [place], [address], [facility] 10/31/2017 16:26:09 018 Endoscopy Nasal; Biospy, Polypectomy or Debridement completed [facility] 10/27/2017 13:35:50 017 Endoscopy Nasal; Biospy, Polypectomy or [facility]bridement [facility] 11:52:37 017 Endoscopy Nasal; Biospy, Polypectomy or Debridement completed [facility] 05/25/2017 08:34:58 017 Breast Surgery completed Candace Gaona [facility] 05/25/2017 08:10:17 017 Biopsy Skin completed [facility] 03/15/2017 15:07:02 017 Destruction Premalignant Lesion(s) completed [facility] 03/15/2017 15:22:34 017 Destruction BN Lesions completed [facility] 03/15/2017 15:23:02 017 Endoscopy Nasal; Biospy, Polypectomy or Debridement completed [facility] 02/24/2017 11:31:32 017 Review of Med Recs/Compl forms completed [facility] 02/03/2017 12:14:00 017 Endoscopy Nasal; Diagnostic completed [facility] 02/03/2017 12:15:20 017 Endoscopy Nasal; Diagnostic completed [facility] 01/06/2017 09:51:33 017 Endoscopy Nasal; Biospy, Polypectomy or Debridement completed [facility] 12/01/2016 13:51:14 017 Nasopharyngoscopy completed Angella Aparicio [facility] 11/10/2016 11:32:31 017 Review of Med Recs/Compl forms completed Angella Aparicio [facility] 11/10/2016 11:27:30 017 Endoscopy Nasal; Biospy, Polypectomy or Debridement completed Maria Ines Stiles [facility] 11/04/2016 13:17:46 017 PT Therapeutic Exercise completed BALA RAHMAN, PT [address] [place], [address], [facility] 10/05/2016 14:10:15 017 PT Therapeutic Exercise completed BALA RAHMAN, PT [address] [place], [address], [facility] 09/29/2016 12:33:26 017 PT Evaluation - Low Complexity completed BALA RAHMAN, PT [address] [place], [address], [facility] 09/29/2016 12:33:09 017 Endoscopy Nasal; Biospy, Polypectomy or Debridement completed Sherie Hudson [facility] 09/23/2016 13:58:53 016 Ears/Nose/Throat Surgery completed [facility] 02/03/2017 10:22:51 [employer] Surgery completed [facility] 02/03/2017 10:18:36 Knee arthroscopy/surgery completed [facility] 02/03/2017 10:18:48 Shoulder joint surgery completed [facility] 02/03/2017 10:19:09 Shoulder joint surgery completed [facility] 02/03/2017 10:19:11 Unlisted px foot/toes completed [facility] 02/03/2017 10:19:34 Ears/Nose/Throat Surgery completed [facility] 02/03/2017 10:20:04 Breast Surgery completed Mary Mclain [facility] 02/13/2018 10:35:00 Carpal tunnel surgery completed [facility] 02/03/2017 10:20:44 Unlisted px hands/fingers completed [facility] 02/03/2017 10:20:51 Knee arthroscopy/surgery completed [facility] 02/03/2017 10:22:07 Tonsillectomy completed [facility] 08/24/2016 13:58:23 Other completed Patricia Houston [facility] 08/24/2016 13:58:37 Other completed Patricia Jer [facility] 08/24/2016 13:58:56 Other completed Patricia Houston [facility] 08/24/2016 14:01:05 [facility] 08/24/2016 14:04:12 Appendectomy completed [facility] 12/08/2023 10:24:54 Imaging Results None recorded. Procedure Notes None recorded. Medical Equipment None Reported. Allergies Allergen ID Allergen Name Allergen Category Reaction Reaction Severity Criticality Documentation Date Start Date Code Code System Note Provider Name and Address Organization Details Recorded Time 311945 prednison e medicatio n Not available Not available Not available 07/22/20162009 8640 RxNorm Maryaysha Cevallos [facility] 8 10:24:29 723395 clindamyc in hydrochlo ride medicatio n nausea Not available Not available 07/22/20162012 35098 RxNorm Candace Teetrevor severino [facility] 7 09:10:31 808035 vancomyci n hydrochlo ride medicatio n Not available Not available Not available 07/22/20162012 43280 RxNorm Candace Teetrevor severino [facility] 7 09:11:12 662018 acetamino phen / hydrocodo ne medicatio n nausea severe Not available 07/22/20162010 05882 2 RxNorm React ion: NAUSE A;Sev erity : Sever e; Comme nt: Creat ed By: Jennifer fernandez Date: 2010 4:54: 20 PM; Not Available [facility] 6 10:18:05 096414 Substance with prostagla ndin-endo peroxide synthase isoform 2 inhibitor mechanism of action (substanc e) Not available other Not available Not available 07/22/20162009 84110 0005 SNOMED Comme nt: CAUSE ULCER S Candace Brown mere [facility] 7 09:10:42 386079 Substance with sulfonami de structure and antibacte rial mechanism of action (substanc e) medicatio n Not available Not available Not available 07/22/20162006 47248 8003 SNOMED Candace Brown mere [facility] 7 09:11:08 265837 Reglan medicatio n Not available Not available Not available 07/22/20162009 9230 RxNorm Mary Cevallos [facility] 4 10:03:21 784204 Cymbalta medicatio n Not available Not available Not available 07/22/20162010 86843 4 RxNorm Candace Brown mere [facility] 7 09:10:46 620669 gabapenti n medicatio n rash Not available Not available 07/22/20162012 53436 RxNorm Candace Brown mere [facility] 7 09:10:51 379282 Medrol medicatio n rash Not available Not available 07/22/20162014 2 RxNorm Mary Cevallos [facility] 8 10:24:22 809704 codeine medicatio n Not available Not available Not available 07/22/20162006 2670 RxNorm Candace Brown mere [facility] 7 09:10:34 810848 Biaxin medicatio n other Not available Not available 07/22/20162006 9 RxNorm Comme nt: PT ON RELPA X SHOUL D NOT TAKE BIAXI N WITH THIS DRUG Candace Brown mere [facility] 7 09:10:23 040545 midazolam hydrochlo ride medicatio n Not available Not available Not available 07/22/2016201312 8 RxNorm Candace severino [facility] 7 09:11:14 318785 acetamino phen / hydrocodo ne medicatio n nausea Not available Not available 07/23/2016201218 2 RxNorm Candace severino [facility] 7 09:10:55 183187 Cipro medicatio n abdominal pain Not available Not available 02/13/201843431 3 RxNorm Mary Cevallos [facility] 8 10:25:49 627725 Topamax medicatio n Not available Not available Not available 12/14/202112156 3 RxNorm Margaritaelayne Cole [facility] 2 11:53:05 786566 Non-stero idal anti-infl ammatory agent (substanc e) medicatio n Not available Not available Not available 12/14/2021 22951 5008 SNOMED Margarita Cole [facility] 2 11:53:13 222852 amoxicill in medicatio n Not available Not available Not available 09/12/2024 723 RxNorm Notif ied of aller gy 09/12 Ginny Hernández [facility] 5 15:26:18 623661 lidocaine medicatio n rash Not available Not available 11/27/2024 6387 RxNorm decli gideon topic al lidoc carleen due to rash/ burni ng Jeny Stone [facility] 5 15:04:06 705969 gabapenti n medicatio n swelling Not available high 07/26/20252022 45713 RxNorm Not Available clive - [employer] - prod 5 10:01:08 288898 vancomyci n medicatio n rash Not available low 07/26/20252022 42920 RxNorm Not Available [employer]ive - [employer] - prod 5 10:01:08 787155 clindamyc in Not available Not available Not available Not available 07/26/20252022 2582 RxNorm Upset stoma ch Not Available [employer] - prod 5 10:01:38 127834 nebivolol medicatio n swelling Not available Not available 07/26/20252022 99802 RxNorm palpi tatio ns Not Available [employer] [facility] [employer] 5 10:01:38 887924 pregabali n medicatio n swelling Not available low 07/26/20252022 45473 2 RxNorm Not Available [email or web address] [facility] [employer] 5 10:01:38 251682 fentanyl medicatio n Not available Not available Not available 07/26/20252014 4337 RxNorm migra ine unrec ogniz ed react ion (text : Other (See Comme nts), code: 85575 003) (from exter nal sourc e) Not Available [employer] [facility] [employer] 5 10:02:01 083112 metoclopr amide hydrochlo ride medicatio n Not available Not available Not available 07/26/20252014 44037 6 RxNorm migra ine unrec ogniz ed react ion (text : Other (See Comme nts), code: 27480 003) (from exter nal sourc e) Not Available [employer] [facility] [employer] 5 10:02:01 994549 amoxicill in / clavulana te medicatio n Not available Not available Not available 07/26/20252024 71363 RxNorm Other React ion(s ): abdom inal pain Not Available [employer] [facility] [employer] 5 10:03:25 065303 celecoxib medicatio n Not available Not available Not available 07/26/20252014 29049 7 RxNorm Not Available [employer] [facility] [employer] 5 10:03:25 684424 ciproflox acin hydrochlo ride medicatio n Not available Not available Not available 07/26/20252023 55709 RxNorm Extre me abdom inal pian Not Available [employer]ive - [employer] - prod 5 10:03:25 359705 ciproflox acin medicatio n Not available Not available low 07/26/20252024 2551 RxNorm Other React ion(s ): abdom inal pain, GI Intol eranc e Abdom inal pain Not Available clive - [employer] - prod 5 10:03:25 874837 clarithro mycin medicatio n Not available Not available Not available 07/26/2025200612 RxNorm Was told not to take with migra ine medic ation Biaxi n Not Available [employer] - prod 5 10:03:25 469153 clindamyc in hydrochlo ride medicatio n Not available Not available Not available 07/26/20252012 94365 RxNorm Not Available [employer] - prod 5 10:03:25 598478 duloxetin e medicatio n Not available Not available high 07/26/20252010 07174 RxNorm Other React ion(s ): Not avail able LEG SWELL ING Not Available clive - [employer] - prod 5 10:03:25 774403 hydrocodo ne Not available Not available Not available low 07/26/20252018 5489 RxNorm Not Available [employer] - [employer] - prod 5 10:03:25 969246 indometha cornelius sodium medicatio n Not available Not available Not available 07/26/20252014 00771 12 RxNorm Not Available [employer]ive - [employer] - prod 5 10:03:25 938811 levofloxa cornelius medicatio n Not available Not available high 07/26/20252017 24879 RxNorm Ruptu red tendo ns and paty er finge r Not Available clive - [employer] - prod 5 10:03:25 706636 metformin medicatio n Not available Not available Not available 07/26/20252018 6809 RxNorm Other React ion(s ): GI Intol eranc e Not Available clive - [employer] - prod 5 10:03:25 411563 midazolam hydrochlo ride medicatio n Not available Not available Not available 07/26/20252013 81054 8 RxNorm Other React ion(s ): Not avail able Not Available clive - [employer] - prod 5 10:03:25 586106 naproxen sodium medicatio n Not available Not available Not available 07/26/20252024 86194 2 RxNorm Other React ion(s ): Unkno wn Not Available [employer] - prod 5 10:03:25 443543 sulfameth oxazole / trimethop rim medicatio n Not available Not available high 07/26/20252012 38911 RxNorm GENER NARCISO D SWELL ING Not Available clive - [email or web address] - prod 5 10:03:25 435699 lactase medicatio n Not available Not available Not available 07/26/20252016 22172 RxNorm Migra chang Not Available [employer] - prod 5 10:03:25 957476 topiramat e medicatio n Not available Not available high 07/26/20252021 28845 RxNorm Lasts days Other React ion(s ): Not avail able Not Available [employer] - prod 5 10:03:25 452408 duloxetin e hydrochlo ride medicatio n Not available Not available Not available 07/26/20252016 81234 0 RxNorm Not Available [employer] - prod 5 10:03:29 Medications [...] completed Instruct ions: for fibromya lgia.;Fr equency: qhs;[facility] cation Descript ion: nortript yline; Dosage:1 ; [...] completed Not Available Not Available Not Available [place] 3 active Not Available Not Avail able [...] Available Not Available Not Available Fluarix Quad 8056-4807 (PF) 60 mcg (15 mcg x 4)/0.5 [...] Updated DateTime 5 175.26 cm 24.8 kg/m2 94518.9 2 g 97.2 [degF] 76 /min 95/58 mm[Hg] Vincent De La Rosa [facility] 5 12:59:15 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 Question Answer Notes LastModified by Organizat ion Details LastModified Time Tobacco Smoking Status Never Smoker [email or web address]/2016 13:57:44 What Is Your Level Of Caffeine Consumption? Occasional Information not available 10/31/2017 How Much Tobacco Do You Chew? None Information not available 11/05/2020 Which Of Your [...] Of Your Most Recent Tobacco Screening? 08/15/2025 [email or web address] Information not available 08/14/2025 How Many Children Do You Have? 4 [email or web address] Information not available 11/19/2021 What Is Your Relationship Status? [email or web address] Information not available 11/19/2021 How Much Tobacco Do You Smoke? No [email or web address] Information not available 11/05/2020 Has Tobacco Cessation Counseling Been Provided? No [email or web address] Information not available 12/22/2022 How Many Years Have You Smoked Tobacco? 0 [email or web address] Information not available 11/05/2020 Have You Recently Traveled Abroad? No [email or web address] Information not available 11/19/2021 Sex: Female Functional Status Question Answer Note LastModified by Organizat ion Details LastModified Time Do you use any illicit or recreational drugs? No Information not available 10/31/2017 Do you or have you ever used any other forms of tobacco or nicotine? No Information not available 06/30/2022 What is your level of alcohol consumption? Occasional one glass of wine daily [email or web address] Information not available 11/05/2020 Do you or have you ever used smokeless tobacco? Never used smokeless tobacco [email or web address] Information not available 11/05/2020 Are you currently employed? 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 Never used electronic cigarettes [email or web address] Information not available 11/05/2020 What is your [...] Pain N Stomach trouble N Heart Attack (NM) N Ulcers Y Diabetes Y Rheumatic Fever [...] Time zoster live 6 completed Not Available [facility] 08/07/2025 14:28:53 Influenza, adjuvanted, trivalent, PF 7 completed Not Available [facility] 08/07/2025 14:28:53 Influenza, high-dose, trivalent, PF 8 completed Not Available [facility] 08/07/2025 14:28:53 Influenza, high-dose, trivalent, PF 9 completed Not Available [facility] 08/07/2025 14:28:53 Influenza, high-dose, quadrivalent, PF 0 completed Not Available [facility] 08/07/2025 14:28:53 zoster recombinant 0 completed Not Available [facility] 08/07/2025 14:28:53 zoster recombinant 1 completed Not Available [facility] 08/07/2025 14:28:53 Influenza, adjuvanted, quadrivalent, PF 1 completed Not Available [facility] 08/07/2025 14:28:53 Influenza, high-dose, quadrivalent, PF 2 completed Not Available [facility] 08/07/2025 14:28:53 RSV, bivalent, protein subunit RSVpreF, diluent reconstituted, 0.5 mL, PF 3 completed Not Available [facility] 08/07/2025 14:28:53 Influenza, high-dose, quadrivalent, PF 3 completed Not Available [facility] 08/07/2025 14:28:53 COVID-19, mRNA, LNP-S, PF, 50 mcg/0.5 mL 4 completed Not Available [facility] 08/07/2025 14:28:53 RSV, recombinant, protein subunit RSVpreF, adjuvant reconstituted, 0.5 mL, PF 4 completed Not Available [facility] 08/07/2025 14:28:53 Influenza, high-dose, trivalent, PF 4 completed Not Available [facility] 08/07/2025 14:28:53 Pneumococcal conjugate PCV21, polysaccharide [id number] conjugate, PF 5 completed Not Available [facility] 08/07/2025 14:28:53 Influenza, high-dose, trivalent, PF 5 completed Not Available [facility] 08/07/2025 14:28:53 COVID-19, mRNA, LNP-S, PF, 30 mcg/0.3 mL dose 1 completed Marino Hernandez [facility] 12/11/2024 15:52:44 COVID-19, mRNA, LNP-S, PF, 30 mcg/0.3 mL dose 1 completed Marino Hernandez [facility] 12/11/2024 15:52:44 COVID-19, mRNA, LNP-S, PF, 30 mcg/0.3 mL dose 1 completed Marino Hernadnez [facility] 12/11/2024 15:52:44 Past Encounters Encounter ID Performer Location Encounter Start Date Encounter Closed Date Diagnosis/Indication Diagnosis SNOMED-CT Code Diagnosis ICD10 Code Diagnosis IMO Codes Diagnosis Note [id number] MD SULEIMAN HARTLEY [facility] [address] [place] [address] 05/23/2025 12:44:35 05/23/2025 13:27:03 Chronic recurrent sinusitis 281521096 J32.9 -2007 - Septoplast y, Left ESS [...] obtained today in office Laryngopha ryngeal reflux 782621999 K21.9 -2008 - s/p [employer] tion [...] may return to singing. 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 292568 bilateral Health Concerns Section Related Observation LastModified by Organization Detai ls LastModified Time None Recorded Concern Status LastModified by Organization Details LastModified Time None Recorded Payers Encounter Date Sequence Insurance Name Policy Number Policy Salcido Covered Member ID Salcido Member ID Guarantor Name 05/23/2025 1 [place]ARE[place] Candace Bryant [id number] Candace Bryant 05/23/2025 2 AARP (MEDICARE SUPPLEMENT) Candace Bryant [id number] Candace Bryant Notes Date Note Type Note Provider Name and Address Organization Details Recorded Time 05/23/2025 text/html ROS as noted in the HPI [...] is used occasionally. LAUREN GRIFFIN MD [address] [place], [address], [facility] 05/23/2025 13:23:18 OBGyn Episode No OBEpisode recorded.
--- OUTSIDE RECORDS SUMMARY | 2025-08-16 15:56 | XMS_ITS | Clinical Summary ---
Author Organization [facility] Address [address] [place] [address] Care Team Providers Care Senior Master Scheduler Name Role Phone Graham Jose MD Primary Care Provider [phone] Allergies Active Allergy Reactions Criticality Noted Date [...] Health Maintenance Due Date Last Done Comments [facility]-Bone Density Scan 1948 [facility]-Depression Screening 1948 [facility]-Hepatitis C Screening 1950 [facility]-Medicare Annual Wellness (AWV) 1948 [facility]-/Child/Adol SDOH Screenings 1948 [facility]- SDOH Screenings 1966 [facility]-Adult SDOH Screenings 1966 [facility]-DTaP,Tdap,and Td Vaccines (1 - Tdap) 1967 [facility]-Pneumococcal Vaccine: 50+ Years (1 of 1 - PCV) 1998 [facility]-RSV Vaccine: 60+ Years or (1 - 1-dose 75+ series) 2023 [id number] Vaccine (4 - 2024- season) 2025 06/10/2021, 10/21/2020, 09/26/2020 [facility]-Influenza Vaccine (#1) 04/29/202507/13, 06/28/2021, 04/15/2020, Additional history exists [facility]-Zoster Vaccines Completed 12/30/2020, 07/31/2020, 01/07/2016 [facility]-Breast Cancer Screening Discontinued 02/11/2022, 02/05/2021, 01/03/2020, Additional history exists HPV Vaccines (No Doses Required) Completed [facility]-HIB Vaccines Aged Out No longer e [...] age to complete this topic Insurance MEDICARE [facility] Care Teams Senior Master Scheduler Relationship Specialty Start Date End Date Graham Jose MD [address] [place] [address] SULEIMAN [place] [id number] PCP - General 01/09/21
== END 2025-08-16 23:59 | disposition home or self-care (01) ==
LOC: RAD 15:50
PROVIDERS: PCP Internal Medicine Adolescent Medicine; Visit Provider Internal Medicine Adolescent Medicine
DX: M48.062 Spinal stenosis, lumbar region with neurogenic claudication (principal); M51.369 Other intervertebral disc degeneration, lumbar region without mention of lumbar back pain or lower extremity pain
CPT/HCPCS: 72148